=== PATIENT | male | born 1970 | race Caucasian/White ===

== ENCOUNTER 2024-08-04 23:37 | Inpatient (IN) | payer SELFPAY ==
--- NOTE | 2024-08-04 23:46 | ECG_ITS ---
[facility] Test Date: 2024-08-04 Pat Name: Guido Whalen Department: Room: ICU12 Gender: Male Application Support Consultant: : 1970 Requested By: Nimisha Mckinnon Order Number: [id number] Virgen MD: Raul Sánchez M.D. Measurements Intervals [place] Rate: 69 P: 0 [place]: 0 QRS: 13 QRSD: 116 T: 11 QT: 414 QTc: 445 Interpretive Statements SUPRAVENTRICULAR RHYTHM MODERATE INTRAVENTRICULAR CONDUCTION DELAY [110+ ms QRS DURATION] No previous ECG available for comparison Electronically Signed On 08-07-2024 19:12:16 CDT by Raul Sánchez M.D. [email or web address]
--- NOTE | 2024-08-04 23:46 | XRR_ITS ---
PROCEDURE INFORMATION: Exam: XR Chest Exam date and time: 08/05/2024 12:55 AM Age: 54 years old Clinical indication: Injury or trauma; Fall; Blunt trauma (contusions or hematomas); Additional info: Shortness of breath TECHNIQUE: Imaging protocol: Radiologic exam of the chest. Views: 1 view. COMPARISON: No relevant prior studies available. FINDINGS: Limitations: The study is limited due to patient body habitus. Lungs: There is increased opacification of the inferomedial right lung. This could represent overlapping structures, but underlying consolidation and/or atelectasis in the right lower lobe is possible. Pleural spaces: No pleural effusion. No pneumothorax. Heart/Mediastinum: No significant cardiac silhouette enlargement. Bones/joints: Unremarkable. XR/XR chest 1V portable [id number] IMPRESSION: There is increased opacification of the inferomedial right lung. This could represent overlapping structures, but underlying consolidation and/or atelectasis in the right lower lobe is possible.
[2024-08-05] VITALS (20 sets, daily range): BP systolic 122–146; BP diastolic 65–111; PULSE 60–73; RESP 12–19; TEMP 36.3–37.4; O2SAT 86–98; BMI 39.0
--- NOTE | 2024-08-05 00:08 | CTR_ITS ---
PROCEDURE INFORMATION: Exam: CT Head Without Contrast Exam date and time: 08/05/2024 12:50 AM Age: 54 years old Clinical indication: Injury or trauma; Fall; Blunt trauma (contusions or hematomas); Additional info: Fall, head injury TECHNIQUE: Imaging protocol: Computed tomography of the head without contrast. Radiation optimization: All CT scans at this facility use at least one of these dose optimization techniques: automated exposure control; mA and/or kV adjustment per patient size (includes targeted exams where dose is matched to clinical indication); or iterative reconstruction. COMPARISON: No relevant prior studies available. RADIATION DOSE METRICS: Total DLP (mGy-cm): 1254.48 FINDINGS: Brain: No acute intracranial hemorrhage, cerebral edema, or midline shift. Cerebral ventricles: No hydrocephalus. Paranasal sinuses: A mucous retention cyst is present in the left maxillary sinus. There is no acute sinusitis. Mastoid air cells: Visualized mastoid air cells are well aerated. Orbital cavities: The visualized orbits appear unremarkable. Bones: Unremarkable. No acute fracture. Soft tissues: Unremarkable. CT/CT head wo con* [id number] IMPRESSION: No acute intracranial abnormality.
[2024-08-05 00:11] LABS: ABG PCO2 45.2 mmHg (35-45); ABG PH Result 7.32 (7.35-7.45); Alveolar-Arterial Oxygen Gradi 1.9 mmHg (5-10); Arterial Blood Gas Hematocrit 25.2 % (42-52); Base Excess ABG -2.5 mmol/L (-2.0-2.0); Blood Gas Allen Test Pos; Blood Gas Operator Identificat jlb; Blood Gas Sample Site Radial, left; Blood Gas Sample Type Arterial; Carboxyhemoglobin 2.5 %THgb (0.4-20.1); HCO3 ABG 23.5 mmol/L (22-26); HGB O2 Sat 91.4 % (95-100); Ionized Calcium Level - ABG 1.1 mmol/L (1.1-1.4); Methemoglobin 1.4 % (0.4-1.5); Oxygen Device NC; Oxygen Saturation ABG 95.2; PO2 ABG 77.6 mmHg (80.0-100.0); Potassium Level - ABG 6.2 mmol/L (3.5-5.0); Total Hemoglobin 8.2 g/dL (14-18)
--- NOTE | 2024-08-05 00:20 | W.ED.SOB ---
HPI - SOB/Dyspnea General: Chief Complaint: Fall Stated Complaint: Fell hit his head and cut r arm,confused,swelling Time Seen by Provider: 08/04/24 23:50 History of Present Illness: HPI Narrative: 54-year-old man who presents emergency room after having had a fall. He can tell me initially is that he was recently admitted to a hospital in [facility] for pneumonia for a very long time and he was discharged and his son came and got him and brought him down here. They have only been here briefly. They were trying to do his shower routine he became short of breath and fell and hit his head. He is extremely edematous. He has body wall edema scrotal edema and leg edema. Very tight. He is short of breath and has had some wheezing. He says he does not know of any heart failure history and that he does not have COPD. He says he was admitted to the hospital for pneumonia. He has a tracheostomy scar. He does not know what the feeding tube he has is for. Review of Systems Narrative: Constitutional symptoms: Negative except as documented in HPI. Skin symptoms: Negative except as documented in HPI. Eye symptoms: Negative except as documented in HPI. ENMT symptoms: Negative except as documented in HPI. Respiratory symptoms: Negative except as documented in HPI. Cardiovascular symptoms: Negative except as documented in HPI. Gastrointestinal symptoms: Negative except as documented in HPI. Genitourinary symptoms: Negative except as documented in HPI. Musculoskeletal symptoms: Negative except as documented in HPI. Neurologic symptoms: Negative except as documented in HPI. Psychiatric symptoms: Negative except as documented in HPI. Endocrine symptoms: Negative except as documented in HPI. Physical Exam Narrative: EXAM NARRATIVE: General: Alert, no acute distress. Skin: Warm, dry. Head: Normocephalic, atraumatic. Neck: Supple, trachea midline. Eye: Extraocular movements are intact. Ears, nose, mouth and throat: mucosa moist. Cardiovascular: Regular, Normal peripheral perfusion. Patient has anasarca. He has edema of his legs that is very tight. He has scrotal edema. He has abdominal wall edema. Respiratory: Coarse breath sounds with some wheeze. Diminished breath sounds on the right posterior lungs. Gastrointestinal: Soft, Nontender, Non distended Musculoskeletal: Normal ROM, no deformity. Neurological: Alert and oriented, No focal neurological deficit observed. Patient is a very poor director medical affairs. Psychiatric: Cooperative, appropriate mood & affect. Course Vital Signs: Vital signs: Vital Signs Temperature 97.9 F 08/05/24 00:36 Pulse Rate 66 08/05/24 02:49 Respiratory Rate 18 08/05/24 02:49 Blood Pressure 139/92 08/05/24 02:49 Pulse Oximetry 93 08/05/24 02:49 Oxygen Delivery Me thod Nasal Cannula 08/05/24 02:49 Oxygen Flow Rate 5 08/05/24 02:49 MDM - SOB/Dyspnea Medical Decision Making Medical decision making: Differential diagnosis including but not limited to and based on the above HPI, review of systems and physical exam: patient with fall and head injury. Subdural hematoma, subarachnoid hemorrhage, concussion, skull fracture. Differential diagnosis for patient with shortness of breath includes but is not limited to and based on the above HPI, review of systems and physical exam: Pneumonia. Bronchitis. Asthma or COPD with acute exacerbation. Acute coronary syndrome / NE. Pulmonary embolism. Anxiety. Congestive heart failure. Viral infections including influenza and Covid-19. Atrial fibrillation. Anxiety. Pleural effusion. Pneumothorax. Orders placed to evaluate differential diagnosis based on the above differential, HPI and physical exam CT head: No acute intracranial process. no intracranial hemorrhage, no evidence of infarct. no evidence of acute fracture.This was reviewed and interpreted by myself the ER physician. Chest x-ray: Increased opacification of the inferomedial right lung. Could be consolidation or atelectasis. According to radiology. Looks like an effusion to me. Cardiomegaly. This was reviewed and interpreted by myself the emergency room physician. I also reviewed the radiology report. Lab Review: Laboratory results were reviewed and interpreted by myself the emergency room physician. No leukocytosis. Anemia with a hemoglobin of 7.9. Hyponatremia. Sodium is 129. Potassium is a bit elevated at 6.4. BUN and creatinine are elevated at 66 and 4.1. Flu COVID and RSV are negative. Troponin is 215 initially and 215 upon repeat. No delta. This is likely his baseline with his renal insufficiency. CT of the chest abdomen pelvis without contrast: Large pleural effusion. Compressive atelectasis. Body wall edema. No obstructive uropathy. Cirrhosis. This was reviewed and interpreted by myself the emergency room physician. I also reviewed the radiology report. I reviewed the patient's medical record. Reexamination: Patient is breathing more comfortably on oxygen. He still has extensive edema. I did get considerably better information from the patient's son. He had been admitted to the hospital for about a month. Initially with flu. Then with bilateral pneumonia. Then with MRSA bacteremia it sounds like. He had been intubated and then placed on a trach. He also had a feeding tube while he was on the trach. He still has the feeding tube. Looking at his meds he is on 20 mg of Lasix. May have a history of heart failure. We are attempting to retrieve records from [facility]. Consultation: I spoke with Dr. Simpson who agrees to admission. Assessment and plan: Fall Head injury Hypoxemia Dyspnea Renal insufficiency Anasarca/edema Congestive heart failure Pleural effusion ?80 mg IV Lasix in the emergency room. -I discussed the patient with the hospitalist on-call who is admitting the patient. - Discussed findings and plan with patient. Answered any questions. - All laboratory values were reviewed and interpreted personally by myself, the ER physician - All imaging was reviewed and interpreted personally by myself, the ER physician. - Evaluation and treatment of this problem were appropriate in the emergency setting Lab Data 08/05/24 00:09 08/05/24 00:09 Labs/Radiology: Radiology Impressions Chest X-Ray 08/04/24 23:46 IMPRESSION: There is increased opacification of the inferomedial right lung. This could represent overlapping structures, but underlying consolidation and/or atelectasis in the right lower lobe is possible. Head CT 08/05/24 00:08 IMPRESSION: No acute intracranial abnormality. Chest/Abdomen/Pelvis CT 08/05/24 02:05 IMPRESSION: 1. Moderate right and small left pleural effusions 2. Dependent and compressive atelectasis in the lower lobes, more pronounced on the right 3. Generalized anasarca 4. Chronic findings as discussed above. IMPRESSION: 1. Generalized anasarca 2. Cirrhosis and a small amount of ascites Laboratory Results WBC 8.27 10^3/uL (3.29-11.43) 08/05/24 00:09 RBC 2.75 10^6/uL (3.85-5.65) L 08/05/24 00:09 Hgb 7.90 g/dL (11.27-16.99) L 08/05/24 00:09 Hct 26.4 % (37-53) L 08/05/24 00:09 MCV 96.0 fl (82-101) 08/05/24 00:09 MCH 28.7 pg (27-33) 08/05/24 00:09 MCHC 29.9 g/dL (30-55) L 08/05/24 00:09 RDW 18.6 % (12.1-15.1) H 08/05/24 00:09 Plt Count 178 10^3/cmm (157-399) 08/05/24 00:09 MPV 11.5 fL (7.4-10.4) H 08/05/24 00:09 Neut % (Auto) 67.4 % 08/05/24 00:09 Lymph % (Auto) 20.7 % 08/05/24 00:09 Harrison % (Auto) 10.2 % 08/05/24 00:09 Eos % (Auto) 1.1 % 08/05/24 00:09 Baso % (Auto) 0.2 % 08/05/24 00:09 Neut # (Auto) 5.58 10^3/uL (1.8-7.7) 08/05/24 00:09 Lymph # (Auto) 1.7 10^3/uL (0.8-4.8) 08/05/24 00:09 Harrison # (Auto) 0.8 10^3/uL (0.2-0.9) 08/05/24 00:09 Eos # (Auto) 0.1 10^3/uL (0.0-0.8) 08/05/24 00:09 Baso # (Auto) 0.0 10^3/uL (0.0-0.1) 08/05/24 00:09 Nucleated RBC % (auto) 0.2 % 08/05/24 00:09 Nucleated RBCs # 0.0 /100WBC 08/05/24 00:09 Sodium 129 mmol/L (136-145) L 08/05/24 00:09 Potassium 6.4 mmol/L (3.5-5.1) H 08/05/24 00:09 Chloride 95 mmol/L (98-107) L 08/05/24 00:09 Carbon Dioxide 22 mmol/L (22-29) 08/05/24 00:09 Anion Gap 18.4 (5-19) 08/05/24 00:09 BUN 66 mg/dL (6-20) H 08/05/24 00:09 Creatinine 4.1 mg/dL (0.7-1.2) H 08/05/24 00:09 GFR Calculation 15.2 mL/min (90-130) L 08/05/24 00:09 Glucose 216 mg/dL (65-115) H 08/05/24 00:09 Calculated Osmolality 294 mOsm/kg (285-295) 08/05/24 00:09 Lactic Acid 1.2 mmol/L (0.5-2.2) 08/05/24 00:09 Calcium 8.1 mg/dL (8.5-10.5) L 08/05/24 00:09 Total Bilirubin 0.6 mg/dL (0.15-1.2) 08/05/24 00:09 AST 27 U/L (0-40) 08/05/24 00:09 ALT 18 U/L (0-41) 08/05/24 00:09 Alkaline Phosphatase 288 U/L (40-130) H 08/05/24 00:09 Troponin T Baseline 215 ng/L (0-15) H* 08/05/24 00:09 Troponin T 120 Minute 215.8 ng/L (0-15) H 08/05/24 02:15 Delta Troponin T 0.8 ABS# (0-10) 08/05/24 02:15 C-Reactive Protein 51.7 mg/L (0.0-4.9) H 08/05/24 00:09 NT-Pro-B Natriuret Pep 4688 pg/mL (0-125) H 08/05/24 00:09 Total Protein 7.5 g/dL (6.6-8.7) 08/05/24 00:09 Albumin 3.0 g/dL (3.5-5.2) L 08/05/24 00:09 Globulin 4.5 g/dL (1.3-4.6) 08/05/24 00:09 Ethyl Alcohol < 10 mg/dL (0-10) 08/05/24 00:09 Influenza A (PCR) Negative (Negative) 08/05/24 00:09 Influenza Type B (PCR) Negative (Negative) 08/05/24 00:09 RSV (PCR) Negative (Negative) 08/05/24 00:09 SARS-CoV-2 (PCR) Negative (Negative) 08/05/24 00:09 XR interpretation done by ED provider, pending radiology final review Discharge Plan Discharge Patient Disposition: Admitted As Inpatient Clinical Impression: Hypoxemia, Fall, Head injury, Renal insufficiency, Congestive heart failure, Anasarca, Dyspnea Condition: Stable Coding Level of Care Code ED Crosstie Inspector for Josesito Puente
[2024-08-05 00:22] LABS: Red Blood Count 2.75 10^6/uL (3.85-5.65); White Blood Count 8.27 10^3/uL (3.29-11.43)
[2024-08-05 00:23] LABS: Basophils % 0.2 %; Eosinophils # 0.1 10^3/uL (0.0-0.8); Eosinophils % 1.1 %; Hematocrit 26.4 % (37-53); Lymphocytes # 1.7 10^3/uL (0.8-4.8); Lymphocytes % 20.7 %; Mean Corpuscular HGB Conc 29.9 g/dL (30-55); Mean Corpuscular Hemoglobin 28.7 pg (27-33); Mean Platelet Volume 11.5 fL (7.4-10.4); Monocytes # 0.8 10^3/uL (0.2-0.9); Monocytes % 10.2 %; Neutrophils # 5.58 10^3/uL (1.8-7.7); Neutrophils % 67.4 %; Nucleated Red Blood Cells % 0.2 %; Platelet Count 178 10^3/cmm (157-399); Red Cell Distribution Width 18.6 % (12.1-15.1)
[2024-08-05 00:35] LABS: Lactic Sepsis W/Reflex 1.2 mmol/L (0.5-2.2)
[2024-08-05 00:41] LABS: Alanine Aminotransferase 18 U/L (0-41); Alcohol Level < 10 mg/dL (0-10); Alkaline Phosphatase 288 U/L (40-130); Anion Gap 18.4 (5-19); Aspartate Amino Transferase 27 U/L (0-40); Blood Urea Nitrogen 66 mg/dL (6-20); C Reactive Protein 51.7 mg/L (0.0-4.9); Calcium 8.1 mg/dL (8.5-10.5); Carbon Dioxide 22 mmol/L (22-29); Chloride 95 mmol/L (98-107); Globulin 4.5 g/dL (1.3-4.6); Glomerular Filtration Rate 15.2 mL/min (90-130); Glucose 216 mg/dL (65-115); Osmolality Calculated 294 mOsm/kg (285-295); Potassium 6.4 mmol/L (3.5-5.1); Sodium 129 mmol/L (136-145); Total Bilirubin 0.6 mg/dL (0.15-1.2); Total Protein 7.5 g/dL (6.6-8.7)
[2024-08-05 00:43] LABS: Troponin(5th) Baseline 215 ng/L (0-15)
[2024-08-05 00:47] LABS: NT Pro B Type Natriuretic Pept 4688 pg/mL (0-125)
[2024-08-05 01:04] LABS: Influenza A NEGATIVE (Negative); Influenza B NEGATIVE (Negative); Respiratory Syncytial Virus Ce NEGATIVE (Negative); SARS-CoV-2 PCR NEGATIVE (Negative)
--- NOTE | 2024-08-05 02:05 | CTR_ITS ---
PROCEDURE INFORMATION: Exam: CT Chest Without Contrast; Diagnostic Exam date and time: 08/05/2024 2:25 AM Age: 54 years old Clinical indication: Abdominal pain; Other: Heart and renal failure; Additional info: Heart failure, renal failure TECHNIQUE: Imaging protocol: Diagnostic computed tomography of the chest without contrast. Radiation optimization: All CT scans at this facility use at least one of these dose optimization techniques: automated exposure control; mA and/or kV adjustment per patient size (includes targeted exams where dose is matched to clinical indication); or iterative reconstruction. COMPARISON: CR (CHEST, ) 08/05/2024 12:55 AM RADIATION DOSE METRICS: Total DLP (mGy-cm): 0.01 FINDINGS: Limitations: Evaluation is limited without IV contrast. Lungs: Dependent and compressive atelectasis is present in the bilateral lower lobes, more pronounced on the right. Pleural spaces: Moderate right and small left pleural effusions are present. Heart: The cardiac silhouette is not enlarged. Coronary artery calcifications are present. There is no significant pericardial effusion. Lymph nodes: Calcified mediastinal lymph nodes are present, likely due to old granulomatous disease. Vasculature: Unremarkable. No aortic aneurysm. Bones/joints: Unremarkable. No acute fracture. Soft tissues: Chest wall edema or generalized anasarca is noted. PROCEDURE INFORMATION: Exam: CT Abdomen And Pelvis Without Contrast Exam date and time: 08/05/2024 2:25 AM Age: 54 years old Clinical indication: Abdominal pain; Other: Heart and renal failure; Additional info: Heart failure, renal failure TECHNIQUE: Imaging protocol: Computed tomography of the abdomen and pelvis without contrast. Radiation optimization: All CT scans at this facility use at least one of these dose optimization techniques: automated exposure control; mA and/or kV adjustment per patient size (includes targeted exams where dose is matched to clinical indication); or iterative reconstruction. COMPARISON: CR (CHEST, ) 08/05/2024 12:55 AM RADIATION DOSE METRICS: Total DLP (mGy-cm): 1505.22 FINDINGS: Tubes, catheters and devices: A percutaneous gastrostomy tube is present. Liver: The liver is cirrhotic. Gallbladder and biliary ducts: The patient is status post cholecystectomy. Pancreas: Normal. No ductal dilation. Spleen: The spleen is mildly enlarged. Adrenal glands: Normal. No mass. Kidneys and ureters: Normal. No hydronephrosis. Stomach and bowel: The stomach is moderately distended with fluid and ingested material. There is no evidence of a bowel obstruction. Appendix: No evidence of appendicitis. Intraperitoneal space: A small amount of free fluid is noted within the pelvis. Vasculature: Unremarkable. No abdominal aortic aneurysm. Lymph nodes: Unremarkable. No enlarged lymph nodes. Urinary bladder: Unremarkable as visualized. Reproductive: A large amount of scrotal edema is present. Bones/joints: Unremarkable. No acute fracture. Soft tissues: Generalized anasarca is present. CT/[place] [id number] IMPRESSION: 1. Moderate right and small left pleural effusions 2. Dependent and compressive atelectasis in the lower lobes, more pronounced on the right 3. Generalized anasarca 4. Chronic findings as discussed above. IMPRESSION: 1. Generalized anasarca 2. Cirrhosis and a small amount of ascites
[2024-08-05 02:37] LABS: Troponin 5 2HR Delta 0.8 ABS# (0-10)
[2024-08-05 02:38] LABS: Troponin 5 2HR 215.8 ng/L (0-15)
[2024-08-05] MEDS: FUROsemide 10 mg/mL SDV 10mL 80 MG IVP (03:04)
--- NOTE | 2024-08-05 03:20 | P.HP_ITS ---
Providers/Chief Complaint 2 Chief Complaint: Fell hit his head and cut r arm,confused,swelling History of Present Illness Guido Whalen is a 54 year old male who recently got discharged on 08/01 from [facility] hospital after prolonged hospitalization summary listed below presented after sustaining a fall at home. His son brought him to [place] to live with his family and establish care with PCP, orthopedics, neuro and general surgery. Patient is stating that he has no energy at all, he has not noticed any chest pain in last 2 to 3 days, no nausea, vomiting, he has not noticed any fever but endorsing generalized weakness fatigue lethargy worsening of swelling. Leg swelling has gotten worse, he does have swelling around his genitalia, today he presented to the hospital after sustaining a fall in the bathroom while taking a shower. He patient is stating that he just blacked out and fell. He did not experience any chest pain or seizure related activity. When he was discharged from the rehab he was not requiring oxygen, he has been trying to eat regular diet, son is trying to flush his PEG tube on daily basis, he does use a walker sometimes wheelchair for ambulation at home. Workup in the ER revealed anasarca, acute on chronic anemia, hemoglobin 7.9 , hyperkalemia, hyponatremia acute kidney disease, requiring 3 L nasal cannula, I did go over all of his notes from the outside facility He does have elevated troponin, he is not endorsing chest pain, EKG not showing any infarctive changes I requested D-dimer, ammonia level, CPK, drug screen, hepatitis panel, Chest CT abdomen pelvis scan consistent with liver cirrhosis, pleural effusion, atelectasis I discussed goals of care with the patient in front of his son: Patient is stating that in case he goes into cardiac or respiratory arrest he does not want chest compressions defibrillation or intubation this time Please review summary below Summary of outside records: Past medical history positive for prolonged hospitalization secondary to angioedema requiring intubation, followed by tracheostomy after prolonged intubation, PEG tube placement after prolonged n.p.o. 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 07/17 MRI lumbar spine chronic degenerative changes, he was given prolonged antibiotics for possible osteomyelitis 08/01: Follow-up MRI no evidence of osteomyelitis Antimicrobial therapy IV vancomycin: Did not tolerate He was given linezolid, ceftaroline meropenem, micafungin, daptomycin Prolonged IV meropenem 07/23 till 08/01 Itraconazole prolonged therapy 07/22-08/01 PICC line removed And sent to [facility]rom[facility] provided Patient was discharged on room air EGD: 07/28: Gastritis: Colonoscopy 07/30: Nonbleeding internal hemorrhoids: 3 to 5 mm small polyps removed large 20 mm polyp removed as well: Patient was asked to follow-up for colonoscopy within 3 years Diarrhea: C. difficile panel negative: Patient was given Imodium on as-needed basis Review of Systems 2 Const: Reports: chills and change in weight; Denies: fever(s) Eyes: Denies: change in vision ENMT: Denies: throat pain Card: Reports: swelling of feet/ankles; Denies: chest pain Resp: Reports: dyspnea, non-productive cough and wheezing : Reports: difficulty urinating Musc: Reports: back pain Skin/Breast: Reports: skin swelling Psych: Reports: depression PFSH Acute 2 PFSH: Medical History Anemia Surgical History Tracheostomy status Past medical history positive for prolonged hospitalization secondary to angioedema requiring intubation, followed by tracheostomy after prolonged intubation, PEG tube placement after prolonged n.p.o. 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 07/17 MRI lumbar spine chronic degenerative changes, he was given prolonged antibiotics for possible osteomyelitis 08/01: Follow-up MRI no evidence of osteomyelitis Antimicrobial therapy IV vancomycin: Did not tolerate He was given linezolid, ceftaroline meropenem, micafungin, daptomycin Prolonged IV meropenem 07/23 till 08/01 Itraconazole prolonged therapy 07/22-08/01 PICC line removed And [facility] Patient was discharged on room air EGD: 07/28: Gastritis: Colonoscopy 07/30: Nonbleeding internal hemorrhoids: 3 to 5 mm small polyps removed large 20 mm polyp removed as well: Patient was asked to follow-up for colonoscopy within 3 years Diarrhea: C. difficile panel negative: Patient was given Imodium on as-needed basis Social History Smoking and tobacco/nicotine status: former use of tobacco/nicotine Alcohol intake: former Household members: family Housing: House Vitals/I&O/Wt Last Vital Signs Temp 97.9 F 08/05/24 00:36 Pulse 66 08/05/24 02:49 Resp 18 08/05/24 02:49 BP 139/92 08/05/24 02:49 Pulse Ox 93 08/05/24 02:49 O2 Del Method Nasal Cannula 08/05/24 02:49 O2 Flow Rate 5 08/05/24 02:49 08/04/24 08/04/24 08/05/24 14:59 22:59 06:59 Intake Total 0 / 0 Balance 0 / 0 Physical Exam 2 Narrative: Patient has anasarca Currently requiring 3 L Scrotal swelling 3+ edema of lower extremity Edema Bilateral bedside with rhonchi and crackles S1, S2 Hemodynamically stable Awake and alert AOx4 GCS 15 Chronic left-sided weakness Son at the bedside Umbilical hernia PEG tube in place Tracheostomy scar without any active signs of infection Data 08/05/24 00:09 08/05/24 00:09 Micro: Microbiology 08/05/24 00:09 Blood Culture - Preliminary Blood SPECIMEN COLLECTED 08/05/24 00:18 Blood Culture - Preliminary Blood SPECIMEN COLLECTED A&P Assessment and plan (1) Congestive heart failure: (2) Renal insufficiency: (3) Fall: (4) Head injury: (5) Hypoxemia: (6) Dyspnea: (7) Anasarca: (8) Hyperkalemia: (9) Liver cirrhosis: (10) Anemia: Plan Prolonged hospitalization at outside facility where patient was intubated for angioedema, MRSA pneumonia, superimposed bacterial infection with underlying influenza he was treated for 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 with prolonged antimicrobial therapy including antibiotic and antifungal, suffered from dysphagia related to intubation requiring tracheostomy, PEG tube was placed, was recently discharged from the rehab 08/01, needing to establish care with PCP, general surgery, orthopedics presented to the hospital after sustaining a fall at home Generalized weakness and fatigue Fell at home, requested CPK No active focal deficit Afebrile here no signs of meningitis Request PT/OT/ST I do believe this is multifactorial: Related to worsening of hypervolemic state, underlying anemia, and hypoxia Requested D-dimer EKG unremarkable Requested ammonia level ABG consistent with hypoxia without hypercapnia No previous history of seizures Anasarca Start patient on high-dose diuretics Seems to have liver cirrhosis Patient endorsing drinking alcohol in the past, requested ammonia level, Patient has diastolic CHF As per records patient has grade 1 diastolic dysfunction, PHILIP negative for vegetation Requested Jama catheter and IV diuresis Acute to on chronic anemia: EGD 07/28: Showed gastritis, there was no comment on any signs of portal hypertension or esophageal varices 07/30 colonoscopy: Internal hemorrhoids, multiple polyps were removed C. difficile ruled out Continue Protonix Acute on chronic kidney disease Secondary to hypervolemia and anasarca Baseline creatinine around 1.9 Dysphagia: Secondary to respiratory failure 06/30 PEG tube Patient was cleared by speech therapy for for soft bite-size solids with mildly thick liquids with precautions he was asked to upgrade to regular diet with mildly thick liquids with precaution 07/13 Patient will need another evaluation for PEG tube removal after 8 weeks Flushing of PEG tube with 30 mL water on normal saline daily to keep it patent Stroke in the past with left-sided weakness Superficial venous thrombosis of right cephalic Short course of anticoagulation was completed 07/30 Right shoulder rotator cuff tear: Needs outpatient Ortho evaluation Aspiration done 07/06 no evidence of infection Depressed mood/anxiety: Continue Lexapro Skin:MASD coccyx area Type II uncontrolled diabetes A1c 11.7 06/12/2024 Patient was prescribed Lantus 10 units along sliding scale and Farxiga Hypertension: Patient was receiving Coreg doxazosin amlodipine along Lasix Current blood pressure 132/88 mmHg Elevated troponin: Patient not endorsing chest pain, EKG without ischemic or infarctive changes Hemoglobin around 7.9, I will hold off on adding any anticoagulating agent Requested echo Request D-dimer Will request venous Doppler for lower extremity swelling Goals of care discussed with the patient in front of his son: Patient is stating that this time if he goes into cardiac arrest arrest he does not want chest compressions defibrillation or intubation, in case of these events he does not want any aggressive intervention and want to pursue comfort care, this was discussed in detail with the patient while son was at the bedside PDMP PDMP Reviewed: Not Reviewed Attestations 2 Medical Necessity Statement*: More than 2 midnights anticipated, multiorgan failure, high risk for mortality morbidity Diagnoses Congestive heart failure I50.9 Renal insufficiency N28.9 Fall W19.XXXA Head injury S09.90XA Hypoxemia R09.02 Dyspnea R06.00 Anasarca R60.1 Hyperkalemia E87.5 Liver cirrhosis K74.60 Anemia D64.9
--- NOTE | 2024-08-05 03:34 | USCV_ITS ---
Guido Whalen Age: 54 Gender: M : 1970 Exam Date: 08/05/2024 03:46 Ordering Phys: Hernan Simpson MD Technologist: BENJI Exam Location: [facility] [place] Indication: anasarca, evaluate for chf BP: 139 / 92 HR: 65 Rhythm: Sinus Technical Quality: Adequate MEASUREMENTS (Male / Female) Normal Values 2D ECHO LV Diastolic Diameter PLAX 4.7 cm 4.2 - 5.9 / 3.9 - 5.3 cm IVS Diastolic Thickness 1.5 cm 0.6 - 1.0 / 0.6 - 0.9 cm IVS Systolic Thickness 1.8 cm LVPW Diastolic Thickness 1.5 cm 0.6 - 1.0 / 0.6 - 0.9 cm LVPW Systolic Thickness 2.2 cm LVOT Diameter 2.0 cm LV Ejection Fraction 2D Teich 59.1 % LV Ejection Fraction MOD 4C 52.3 % LV Ejection Fraction MOD 2C 67.8 % LV Ejection Fraction 2C AL 68.1 % LA Diameter 4.0 cm Aorta at Sinotubular Diameter 3.2 cm IVC Diameter 2.0 cm M-MODE LA Ao Ratio MM 1.2 AV Cusp Separation MM 2.3 cm DOPPLER AV Peak Velocity 153.0 cm/s LVOT Peak Velocity 113.0 cm/s AV Area Cont Eq vti 2.5 cm squared AV Area Cont Eq pk 2.3 cm squared MV Peak Velocity 159.0 cm/s MV Area PHT 3.6 cm squared Mitral E to A Ratio 1.8 TV Peak Velocity 295.0 cm/s TR Peak Velocity 313.0 cm/s TR Peak Gradient 39.2 mmHg TV Peak E Velocity 64.0 cm/s PV Peak Velocity 114.0 cm/s FINDINGS Left Ventricle Left ventricle is normal size. LV systolic function is normal with EF of 55-60%. No regional wall motion abnormalities are seen. Right Ventricle Normal in size and function Right Atrium Normal in size Left Atrium Dilated Mitral Valve Mild to moderate mitral annular calcification. Mild mitral regurgitaiton. Aortic Valve Aortic valve is thickened. No significant stenosis or regurgitation. Tricuspid Valve Mild tricuspid regurgitation. Pulmonary artery systolic pressure is 35-40 mmHg. This is consistent with mild pulmonary hypertension Pulmonic Valve Not well visualized Pericardium Normal Aorta Normal in size IVC Appears to be dilated CONCLUSIONS LV systolic function is normal with EF of 55-60% Left atrial dilation Mild mitral regurgitation Mild tricuspid regurgitation. Mild pulmonary hypertension IVC appears to be dilated No comparison studies are available. Raul Sánchez MD (Electronically Signed) Final Date: 05 August 2024 09:36 S
[2024-08-05] MEDS: calcium gluconate 0.1 gm/mL 10% SDV 10mL 1 GM IVP ×2 (04:00→16:53)
[2024-08-05] MEDS: sodium polystyrene sulfonate 15 gm/60 mL Btl PO ×3 (04:05→21:09)
[2024-08-05 04:21] LABS: Thyroid Stimulating Hormone 1.75 uIU/mL (0.27-4.20); Vitamin B12 1109 pg/mL (232-1245)
[2024-08-05 04:24] LABS: Magnesium 2.5 mg/dL (1.7-2.3); Phosphorus 6.7 mg/dL (2.5-4.5)
[2024-08-05 04:46] LABS: Estmated Average Glucose 111; Hemoglobin A1C 5.5 % (4.0-6.0)
[2024-08-05 04:54] LABS: Tumor Marker Alpha Fetoprotein 2.3 ng/mL (0-8.3)
[2024-08-05 05:06] LABS: Hepatitis A Antibody IgM Non-Reactive (Nonreactive); Hepatitis B Core AB, Total Non-Reactive (Nonreactive); Hepatitis B Surface AB < 3.5 (11.5-1000); Hepatitis B Surface Antigen Non-Reactive (Nonreactive); Hepatitis C Virus Antibody Non-Reactive (Nonreactive)
[2024-08-05 05:09] LABS: D Dimer 2.86 ug/mLFEU (0-0.59)
[2024-08-05 05:09] LABS: Creatine Phosphokinase 406 U/L (39-308)
[2024-08-05 05:09] LABS: Amphetamines Screen Urine Negative (Negative); Barbiturates Screen Urine Negative (Negative); Benzodiazepines Screen Urine Positive (Negative); Cocaine Screen Urine Negative (Negative); Opiate Screen Urine Negative (Negative); PCP Screen Urine Negative (Negative); THC Screen Urine Positive (Negative)
[2024-08-05] MEDS: FUROsemide 10 mg/mL SDV 10mL 40 MG IVP (06:28)
[2024-08-05 06:51] LABS: Ammonia 34 umol/L (16-60)
[2024-08-05 06:53] LABS: Troponin 5 6HR Delta -13.1 ng/L (0-12)
[2024-08-05 06:55] LABS: Potassium 6.6 mmol/L (3.5-5.1); Troponin 5 6HR 201.9 ng/L (0-15)
[2024-08-05 07:37] LABS: Glucose Point of Care 285 mg/dL (70-110)
[2024-08-05] MEDS: ipratropium-albuterol 3 mL Neb INHALATION ×2 (07:44→11:22)
--- NOTE | 2024-08-05 07:45 | PC.NURSE ---
Critical labs: Troponin, Delta, and Potassium reported from lab at 0700. Dr Simpson not in service after 0700. Dayshift hospitalist not assigned at this time, unable to report within half hour.
--- NOTE | 2024-08-05 08:25 | PC.PHAR ---
Addendum entered by Haritha Michaud 08/05/24 08:53: Pts' med list is scanned into pt chart from [facility]. Original Note: Pt states he uses [facility] pharmacy to fill his medications. However, last filled medications at [facility] [address] [facility] in [facility]. [id number].
--- NOTE | 2024-08-05 08:27 | US_ITS ---
WS: [id number] ULTRASOUND RENAL TECHNIQUE: Ultrasound examination of both kidneys. CLINICAL INFORMATION: fab FINDINGS: RIGHT: Right kidney is normal in size and appearance. Echogenicity: Normal. Cortical thickness: 1.4 cm; Normal. Hydronephrosis: None. Perinephric fluid: None. Right kidney measures: 9.7 cm x 6.4 cm x 6.0 cm. LEFT: Left kidney is normal in size and appearance. Echogenicity: Normal. Cortical thickness: 1.2 cm; Normal. Hydronephrosis: None. Perinephric fluid: None. Left kidney measures: 9.6 cm x 5.2 cm x 4.4 cm. Bladder and aorta not visualized due to bowel gas and body habitus US/US renal BI* [id number] IMPRESSION: Technically difficult study due to body habitus. Limited study. 1. No hydronephrosis in either kidney. 2. Bladder and aorta not visualized due to limitations 3. No visualized apparent renal mass but study is limited
[2024-08-05] MEDS: thiamine 100 mg Tablet PO (08:47)
[2024-08-05] MEDS: calcium gluconate 0.9% NaCL 1 GM/50 ML PREMIX IV (08:47)
[2024-08-05] MEDS: pantoprazole 40 mg SDV IVP ×2 (08:47→16:49)
[2024-08-05] MEDS: sennosides-docusate Tablet 1 TAB PO (08:47)
[2024-08-05] MEDS: insulin regular-human 100 units/1 mL 10 UNIT IVP ×2 (08:48→16:52)
--- NOTE | 2024-08-05 08:56 | ECG_ITS ---
[employer] Test Date: 2024-08-05 Pat Name: Guido Whalen Department: Room: ICU12 Gender: Male [place] Ste[place] Tender: : 1970 Requested By: Nimisha Mckinnon Order Number: [id number] Virgen MD: JC COOPER Measurements Intervals [place] Rate: 62 P: 28 MS: 116 QRS: 40 QRSD: 122 T: 34 QT: 438 QTc: 445 Interpretive Statements SINUS RHYTHM WITH SHORT MS INTERVAL MODERATE INTRAVENTRICULAR CONDUCTION DELAY [110+ ms QRS DURATION] Compared to ECG 08/04/2024 23:40:17 Short MS interval now present Supraventricular rhythm no longer present Electronically Signed On 08-10-2024 18:25:47 CDT by JC COOPER [email or web address]
[2024-08-05] MEDS: insulin lispro 100 unit/1 mL SUBCUT ×2 (09:09→12:22)
[2024-08-05 09:25] LABS: Procalcitonin 0.12 ng/mL (0-0.5)
[2024-08-05 09:34] LABS: Erythrocyte Sedimentation Rate 44 mm/hr (0-10)
[2024-08-05 09:37] LABS: C Reactive Protein 57.3 mg/L (0.0-4.9)
[2024-08-05 09:39] LABS: Creatine Phosphokinase 396 U/L (39-308)
[2024-08-05] MEDS: oxyCODONE 5 mg IR Tab/Cap PO ×2 (10:48→21:08)
--- NOTE | 2024-08-05 10:51 | PM.CONSULT ---
Providers/Reason For Consult Consulting Physician/Specialty*: Nephrology Reason for Consult*: Rebecca Requesting Physician: Dr Gillis Attending Physician: Zion Gillis MD History of Present Illness History of Present Illness Guido Whalen is a 54 year old male who recently had a prolonged hospitalization at an outside facility where he required intubated for angioedema. Hospitalization was complicated by MRSA pneumonia, superimposed bacterial infection with underlying influenza. He was also treated for 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 with prolonged antimicrobial therapy including antibiotic and antifungals. He had dysphagia related to intubation requiring tracheostomy and PEG tube placement and was sent to inpatient rehab where he was recently discharged on 08/01. Since that time, he has had increased generalized weakness and worsening edema. he presented to the er after he had a fall in the bathroom while taking a shower. On presentation, he was found to have pulmonary edema on cxr. Further work-up revealed a potassium 6.6, and a creatinine 4.1. Nephrology was consulted for further management of his rebecca Review of Systems General: Reports: 10 or more systems reviewed and unremarkable except in HPI and below Medications/Allergies Home Medications ?Medication ?Instructions ?Recorded ?Confirmed ?Last Taken ?Type albuterol sulfate 90 mcg/actuation 2 puff inhalation Q4H PRN 08/05/24 08/05/24 Unknown History aerosol inhaler Shortness Of Breath amlodipine 10 mg tablet 10 mg PO DAILY 08/05/24 08/05/24 08/04/24 History carvedilol 12.5 mg tablet 12.5 mg PO Q12H 08/05/24 08/05/24 08/04/24 History cholecalciferol (vitamin D3) 1,250 50,000 mcg PO Q7D 08/05/24 08/05/24 Unknown History mcg (50,000 unit) capsule cyclobenzaprine 10 mg tablet 10 mg PO BID PRN Muscle Spasm 08/05/24 08/05/24 08/04/24 History dapagliflozin propanediol 10 mg 10 mg PO QAM 08/05/24 08/05/24 08/04/24 History tablet (Farxiga) diphenhydramine-zinc acetate 2 See Rx Instructions .Route .COMPLEX 08/05/24 08/05/24 Unknown History %-0.1 % topical cream doxazosin 8 mg tablet 8 mg PO DAILY 08/05/24 08/05/24 08/04/24 History escitalopram oxalate 5 mg tablet 5 mg PO DAILY 08/05/24 08/05/24 08/04/24 History ferrous sulfate 324 mg (65 mg 324 mg PO .QOD 08/05/24 08/05/24 Unknown History iron) tablet,delayed release furosemide 20 mg tablet 20 mg PO DAILY 08/05/24 08/05/24 08/04/24 History gabapentin 300 mg capsule 600 mg PO TID 08/05/24 08/05/24 08/04/24 History insulin glargine 100 unit/mL (3 10 unit SUBCUT BEDTIME 08/05/24 08/05/24 08/04/24 History mL) subcutaneous pen (Lantus Solostar U-100 Insulin) insulin lispro 100 unit/mL See Rx Instructions .Route .COMPLEX 08/05/24 08/05/24 08/04/24 History subcutaneous pen itraconazole 10 mg/mL oral solution 200 mg PO BID 08/05/24 08/05/24 08/04/24 History lidocaine 4 % topical patch See Rx Instructions .Route .COMPLEX 08/05/24 08/05/24 08/04/24 History loperamide 2 mg capsule 4 mg PO QID PRN Diarrhea 08/05/24 08/05/24 Unknown History melatonin 3 mg tablet 3 mg PO BEDTIME 08/05/24 08/05/24 08/04/24 History oxycodone 10 mg tablet 10 mg PO Q4H PRN Pain 08/05/24 08/05/24 Unknown History pantoprazole 40 mg tablet,delayed 40 mg PO BID 08/05/24 08/05/24 08/04/24 History release (Protonix) Allergies Allergy/AdvReac Type Severity Reaction Status Date / Time ketorolac Allergy ADR-Vomitin Verified 08/05/24 05:45 g Current Medications Generic Name Dose Route Start Last Admin Trade Name Freq PRN Reason Stop Dose Admin Albuterol/Ipratropium 3 ml 08/05/24 08:00 08/05/24 07:44 Ipratropium-Albuterol 3 Ml Neb INHALATION 3 ml QID.RESPIRATORY LEATHA Administration Furosemide 40 mg 08/05/24 06:00 08/05/24 06:28 Furosemide 10 Mg/Ml Sdv 10ml IVP 40 mg Q12H LEATHA Administration Insulin Human Lispro 0 unit 08/05/24 08:00 08/05/24 09:09 Insulin Lispro 100 Unit/1 Ml SUBCUT 10 unit WM&BEDTIME LEATHA Administration Protocol Oxycodone HCl 5 mg 08/05/24 04:04 08/05/24 10:48 Oxycodone 5 Mg Ir Tab/Cap PO 5 mg Q4H PRN Administration pain Pantoprazole Sodium 40 mg 08/05/24 09:00 08/05/24 08:47 Pantoprazole 40 Mg Sdv IVP 40 mg BID LEATHA Administration Senna/Docusate Sodium 1 tab 08/05/24 09:00 08/05/24 08:47 Sennosides-Docusate Tablet PO 1 tab DAILY LEATHA Administration Thiamine Mononitrate 100 mg 08/05/24 09:00 08/05/24 08:47 Thiamine 100 Mg Tablet PO 100 mg DAILY LEATHA Administration PFSH Acute PFSH: Medical History Anemia Surgical History Tracheostomy status Past medical history positive for prolonged hospitalization secondary to angioedema requiring intubation, followed by tracheostomy after prolonged intubation, PEG tube placement after prolonged n.p.o. 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 07/17 MRI lumbar spine chronic degenerative changes, he was given prolonged antibiotics for possible osteomyelitis 08/01: Follow-up MRI no evidence of osteomyelitis Antimicrobial therapy IV vancomycin: Did not tolerate He was given linezolid, ceftaroline meropenem, micafungin, daptomycin Prolonged IV meropenem 07/23 till 08/01 Itraconazole prolonged therapy 07/22-08/01 PICC line removed And sent to [facility] provided Patient was discharged on room air EGD: 07/28: Gastritis: Colonoscopy 07/30: Nonbleeding internal hemorrhoids: 3 to 5 mm small polyps removed large 20 mm polyp removed as well: Patient was asked to follow-up for colonoscopy within 3 years Diarrhea: C. difficile panel negative: Patient was given Imodium on as-needed basis Social History Smoking and tobacco/nicotine status: former use of tobacco/nicotine Alcohol intake: former Household members: family Housing: House Vitals/I&O/Wt Last Vital Signs Temp 97.9 F 08/05/24 00:36 Pulse 65 08/05/24 07:54 Resp 14 08/05/24 10:48 BP 122/72 08/05/24 05:46 Pulse Ox 95 08/05/24 10:48 O2 Del Method Oxymask 08/05/24 07:44 O2 Flow Rate 3 08/05/24 07:44 08/04/24 08/05/24 08/05/24 22:59 06:59 14:59 Intake Total 0 / 0 50 / 50 Balance 0 / 0 50 / 50 Weight last 48 hrs Weight 116.5 kg Physical Exam Narrative: GEN: nad, alert, conversant HEAD: normocephalic, atraumatic EYES: eomi, anicteric sclera HEENT: MMM NECK: +ve jvd LUNGS:diminished BS with bibasilar crackles bilaterally ABD: soft, nt, distended, +ve pre-sacral edema, +peg tube in place EXT: +2 BLE edema to thighs, +1-2 BUE edema SKIN: no rash NEURO: grossly normal : nielsen catheter in place Urinary Catheter Management: Nielsen: Cath Placed During This Visit: yes Reason for Continuing Indwelling Catheter: Accurate Measurement of Urinary Output in Critically Ill Patients Urinary Catheter Date of Insertion: 08/05/24 Urinary Catheter Time of Insertion: 04:40 Data 08/05/24 00:09 08/05/24 06:26 Micro: Microbiology 08/05/24 00:09 Blood Culture - Preliminary Blood SPECIMEN COLLECTED 08/05/24 00:18 Blood Culture - Preliminary Blood SPECIMEN COLLECTED A&P Assessment and plan (1) Renal insufficiency: REBECCA superimposd on ckd stage 3- He has a previous creatinine of 1.9. He has ckd stage 3 at baseline likely due to hypertensive and diabetic kidney disease. His rebecca is likely due to cardio- renal syndrome. - i will increase his lasix to 60 mg iv tid - start 1200 ml fluir restriction hyperkalemia- i will give a dose of lokelma. acute on chronic HFpEF- i will increase lasix as above acute hypoxic respiratory failure- due to chf. i will increase lasix as above anemia- check iron studies hyponatremia- likely due to chf. i will check urine osm, serum osm and urine sodium PDMP PDMP Reviewed: Not Reviewed Consult Attestations Medical Necessity Statement: rebecca, hyperkalemia Time Spent in Patient Care: 50 minutes Coding Level of Care Code Acute Code for [facility] Diagnoses Renal insufficiency N28.9
--- NOTE | 2024-08-05 11:29 | USCV_ITS ---
Guido Whalen Age: 54 Gender: M : 1970 Exam Date: 08/05/2024 14:27 Ordering Phys: Zion Gillis MD Technologist: [place] [facility] [place]: bilat edema PROCEDURES: The venous duplex Doppler examination of both lower extremities was performed in the standard fashion. The following venous structures were evaluated: common femoral vein, profunda vein, proximal portion of the greater saphenous vein, superficial femoral vein, and the popliteal vein. In addition, the posterior tibial and peroneal trunk were evaluated. FINDINGS: Normal 2-D Doppler and augmentation and compressibility throughout the lower extremity venous structures. Additional imaging through the proximal calf veins also reveals no thrombus. Limited evaluation of the greater saphenous vein is patent with no thrombus. CONCLUSIONS No evidence of right lower extremity DVT. No evidence of left lower extremity DVT. Jamison Silvestre MD (Electronically Signed) Final Date: 05 August 2024 16:25 S
[2024-08-05 12:05] LABS: Glucose Point of Care 215 mg/dL (70-110)
[2024-08-05 12:07] LABS: Ferritin 153 ng/mL (30-400); Iron 38 ug/dL (59-158)
[2024-08-05] MEDS: sodium polystyrene sulfonate 15 gm/60 mL Btl 30 GM PO (12:24)
[2024-08-05 12:54] LABS: Urine Random Sodium 10 mmol/L
[2024-08-05 13:19] LABS: Creatinine Urine, Random 211 mg/dL (39-259)
[2024-08-05 13:51] LABS: Total Protein, Random Urine 236.4 mg/dL (0.0-20.0)
[2024-08-05 14:08] LABS: Basophils % 0.4 %; Eosinophils # 0.1 10^3/uL (0.0-0.8); Eosinophils % 1.5 %; Hematocrit 26.5 % (37-53); Lymphocytes # 1.4 10^3/uL (0.8-4.8); Lymphocytes % 19.6 %; Mean Corpuscular HGB Conc 29.4 g/dL (30-55); Mean Corpuscular Volume 98.5 fl (82-101); Mean Platelet Volume 11.4 fL (7.4-10.4); Monocytes # 0.9 10^3/uL (0.2-0.9); Monocytes % 12.2 %; Neutrophils # 4.82 10^3/uL (1.8-7.7); Nucleated Red Blood Cells % 0.3 %; Platelet Count 176 10^3/cmm (157-399); Red Blood Count 2.69 10^6/uL (3.85-5.65); Red Cell Distribution Width 18.4 % (12.1-15.1)
[2024-08-05 14:25] LABS: Anion Gap 20.3 (5-19); Blood Urea Nitrogen 68 mg/dL (6-20); Calcium 8.3 mg/dL (8.5-10.5); Carbon Dioxide 21 mmol/L (22-29); Chloride 95 mmol/L (98-107); Glucose 177 mg/dL (65-115); Osmolality Calculated 294 mOsm/kg (285-295); Potassium 6.3 mmol/L (3.5-5.1); Sodium 130 mmol/L (136-145)
--- NOTE | 2024-08-05 14:41 | PC.NURSE ---
Report called to [facility] and given to ANDREY Dahl. Renal US in progress. Will transfer after testing completed.
--- NOTE | 2024-08-05 14:42 | PC.NURSE ---
This nurse took report from ANDREY Small in ICU at 1440.
[2024-08-05] MEDS: FUROsemide 10 mg/mL SDV 10mL 60 MG IVP (15:06)
--- NOTE | 2024-08-05 15:35 | PC.NURSE ---
Pt safely transferred from ICU to Med Surg room 257 via wheelchair, accompanied by ANDREY Small. This nurse assumed care of pt at 1535.
--- NOTE | 2024-08-05 15:38 | PC.NURSE ---
Pt transferred to [facility] on [address] [facility] [employer]. Cellphone and clothing with him. No valuables ( I.D.s, pool wallet, etc.) with pt. Update provided to ANDREY Dahl.
--- NOTE | 2024-08-05 15:48 | P.PN_ITS ---
Subjective 2 Subjective: Patient was seen this morning, son is at bedside, he tells me that he was hospitalized at [facility] (formerly [facility]) for over a month, he had an adverse reaction to lisinopril, developed angioedema, required a trach and a PEG, he tells me he also had an adverse reaction to metformin? Nonetheless he was at a long-term care facility, he just recently got discharged and he wanted to be closer to his son so he moved down to [place] he is also disseminated blastomycosis for which she is on itraconazole, he tells me that he is quite swollen he is edema, he is increased edema in his scrotum, does report shortness of breath and is requiring oxygen he did not require oxygen when he was discharged from Vitals/I&O/Wt Last Vital Signs Temp 97.8 F 08/05/24 08:00 Pulse 64 08/05/24 14:00 Resp 13 08/05/24 14:00 BP 139/75 08/05/24 14:00 Pulse Ox 94 08/05/24 14:28 O2 Del Method Nasal Cannula 08/05/24 14:00 O2 Flow Rate 2 08/05/24 15:36 08/05/24 08/05/24 08/05/24 06:59 14:59 22:59 Intake Total 0 / 0 50 / 50 Balance 0 / 0 50 / 50 Weight last 48 hrs Weight 116.5 kg Physical Exam 2 Const: COMMON NORMALS: no acute distress and patient oriented x3 Resp: COMMON NORMALS: normal respiratory effort, No retractions, No use of accessory muscles and clear to auscultation bilaterally AUSCULTATION: clear to auscultation bilaterally Cardio: COMMON NORMALS: regular rate, regular rhythm, S1 normal heart sound present and S2 normal heart sound present RATE: regular rate RHYTHM: r egular rhythm HEART SOUNDS: S1 normal heart sound present and S2 normal heart sound present GI: COMMON NORMALS: Normal to inspection, nondistended, normoactive bowel sounds present and non-tender Extremity: COMMON NORMALS: no pedal edema Neuro: COMMON NORMALS: patient oriented x3 Psych: COMMON NORMALS: mental status grossly normal Urinary Catheter Management: Jama: Cath Placed During This Visit: yes Reason for Continuing Indwelling Catheter: Accurate Measurement of Urinary Output in Critically Ill Patients Urinary Catheter Date of Insertion: 08/05/24 Urinary Catheter Time of Insertion: 04:40 Data 08/05/24 14:01 08/05/24 14:01 Micro: Microbiology 08/05/24 00:09 Blood Culture - Preliminary Blood SPECIMEN COLLECTED 08/05/24 00:18 Blood Culture - Preliminary Blood SPECIMEN COLLECTED A&P Assessment and plan (1) Congestive heart failure: (2) Renal insufficiency: (3) Fall: (4) Head injury: (5) Hypoxemia: (6) Dyspnea: (7) Anasarca: (8) Hyperkalemia: (9) Liver cirrhosis: (10) Anemia: Plan Prolonged hospitalization at outside facility where patient was intubated for angioedema, MRSA pneumonia, superimposed bacterial infection with underlying influenza he was treated for 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 with prolonged antimicrobial therapy including antibiotic and antifungal, suffered from dysphagia related to intubation requiring tracheostomy, PEG tube was placed, was recently discharged from the rehab 08/01, needing to establish care with PCP, general surgery, orthopedics presented to the hospital after sustaining a fall at home Generalized weakness and fatigue Likely secondary to acute renal failure, hypoxia, fluid overload, deconditioning Acute hypoxic respiratory failure Anasarca, fluid overload, increase scrotal edema -2+ edema, -Likely secondary to CKD, diastolic dysfunction Plan -Monitor respiratory status closely -lasix 60mg IV BID Liver cirrhosis? -CT imaging showing cirrhosis of the liver Patient endorsing drinking alcohol in the past, requested ammonia level, Acute to on chronic anemia: EGD 07/28: Showed gastritis, there was no comment on any signs of portal hypertension or esophageal varices 07/30 colonoscopy: Internal hemorrhoids, multiple polyps were removed Hold off on anticoagulant therapy plan Continue Protonix, carafate Acute on chronic kidney disease Secondary to hypervolemia and anasarca Baseline creatinine around 1.9 Plan -Nephrology consulted Hyperkalemia -Patient has received 2 doses of D10, insulin, calcium gluconate -Continue Kayexalate Dysphagia: Secondary to respiratory failure 06/30 PEG tube Patient was cleared by speech therapy for for soft bite-size solids with mildly thick liquids with precautions he was asked to upgrade to regular diet with mildly thick liquids with precaution 07/13 Patient will need another evaluation for PEG tube removal after 8 weeks Flushing of PEG tube with 30 mL water on normal saline daily to keep it patent Plan Continue dysphagia level 4 diet, thin liquids Stroke in the past with left-sided weakness Superficial venous thrombosis of right cephalic Short course of anticoagulation was completed 07/30 Right shoulder rotator cuff tear: Needs outpatient Ortho evaluation Aspiration done 07/06 no evidence of infection Depressed mood/anxiety: Continue Lexapro Type II uncontrolled diabetes A1c 11.7 06/12/2024 Patient was prescribed Lantus 10 units along sliding scale and Farxiga PLan -low dose insulin sliding scale Hypertension: hold bp Elevated troponin: -Type I versus type II NSTEMI Patient not endorsing chest pain, EKG without ischemic or infarctive changes Hemoglobin around 7.9, I will hold off on adding any anticoagulating agent CONCLUSIONS LV systolic function is normal with EF of 55-60% Left atrial dilation Mild mitral regurgitation Mild tricuspid regurgitation. Mild pulmonary hypertension IVC appears to be dilated No comparison studies are available. 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 Goals of care discussed with the patient in front of his son: Patient is stating that this time if he goes into cardiac arrest arrest he does not want chest compressions defibrillation or intubation, in case of these events he does not want any aggressive intervention and want to pursue comfort care, this was discussed in detail with the patient while son was at the bedside SCDs for DVT prophylaxis PDMP PDMP Reviewed: Not Reviewed Attestations 2 Medical Necessity Statement*: Patient requires hospitalization for anasarca, fluid overload, requiring IV diuresis, acute kidney injury, hyperkalemia Diagnoses Congestive heart failure I50.9 Renal insufficiency N28.9 Fall W19.XXXA Head injury S09.90XA Hypoxemia R09.02 Dyspnea R06.00 Anasarca R60.1 Hyperkalemia E87.5 Liver cirrhosis K74.60 Anemia D64.9
[2024-08-05] MEDS: gabapentin 300 mg Capsule PO (16:49)
[2024-08-05] MEDS: aspirin 81 mg EC Tablet PO (16:49)
[2024-08-05 16:55] LABS: Glucose Point of Care 145 mg/dL (70-110)
[2024-08-05] MEDS: sucralfate 1 gm/10 mL Oral Liq UDC PO ×2 (16:56→21:16)
[2024-08-05 17:14] LABS: Bilirubin Urine Negative (Negative); Blood Urine 3+ (Negative); Glucose Urine UA Trace (Normal); Ketones Urine Trace (Negative); Leukocyte Esterase Urine 2+ (Negative); Nitrate Urine Negative (Negative); Protein Urine 3+ (Negative); Urine Appearance Turbid (CLEAR); Urine Color Dark Yellow (Yellow)
[2024-08-05 17:18] LABS: Add Urine Microscopic? YES; Bacteria Urine Trace /hpf; Hyaline Casts Urine 89.78 /lpf; RBC Urine >100 /hpf (0-2); Squamous Epithelial Cell Urine 0-5 /hpf (0-5)
[2024-08-05 17:43] LABS: UA Slide Review UA Slide Review Perf; WBC Urine 40-55 /hpf (0-5)
[2024-08-05 17:44] LABS: Add Urine Culture? Yes; Fine Granular Casts Urine 0-4 /lpf
[2024-08-05 17:57] LABS: Anion Gap 17.8 (5-19); Blood Urea Nitrogen 69 mg/dL (6-20); Calcium 8.6 mg/dL (8.5-10.5); Carbon Dioxide 22 mmol/L (22-29); Chloride 96 mmol/L (98-107); Glomerular Filtration Rate 14.4 mL/min (90-130); Glucose 100 mg/dL (65-115); Osmolality Calculated 290 mOsm/kg (285-295); Potassium 5.8 mmol/L (3.5-5.1); Sodium 130 mmol/L (136-145)
[2024-08-05 20:52] LABS: Glucose Point of Care 97 mg/dL (70-110)
[2024-08-05 21:37] LABS: Glucose Point of Care 123 mg/dL (70-110)
[2024-08-05 23:30] LABS: Anion Gap 19.3 (5-19); Blood Urea Nitrogen 71 mg/dL (6-20); Calcium 8.2 mg/dL (8.5-10.5); Carbon Dioxide 22 mmol/L (22-29); Chloride 92 mmol/L (98-107); Glomerular Filtration Rate 12.7 mL/min (90-130); Potassium 6.3 mmol/L (3.5-5.1); Sodium 127 mmol/L (136-145)
[2024-08-06] VITALS (32 sets, daily range): BP systolic 120–152; BP diastolic 52–102; PULSE 64–90; RESP 0–34; TEMP 36.6–38.3; O2SAT 88–96
[2024-08-06 00:03] LABS: Glucose 121 mg/dL (65-115); Osmolality Calculated 286 mOsm/kg (285-295)
[2024-08-06 02:33] LABS: Basophils % 0.2 %; Eosinophils # 0.1 10^3/uL (0.0-0.8); Eosinophils % 0.7 %; Hematocrit 25.8 % (37-53); Lymphocytes # 1.6 10^3/uL (0.8-4.8); Lymphocytes % 19.5 %; Mean Corpuscular HGB Conc 29.5 g/dL (30-55); Mean Corpuscular Hemoglobin 28.9 pg (27-33); Mean Corpuscular Volume 98.1 fl (82-101); Mean Platelet Volume 11.5 fL (7.4-10.4); Monocytes % 11.7 %; Neutrophils # 5.57 10^3/uL (1.8-7.7); Neutrophils % 67.5 %; Nucleated Red Blood Cells % 0.4 %; Platelet Count 179 10^3/cmm (157-399); Red Blood Count 2.63 10^6/uL (3.85-5.65); Red Cell Distribution Width 18.6 % (12.1-15.1); White Blood Count 8.26 10^3/uL (3.29-11.43)
[2024-08-06 02:56] LABS: Alanine Aminotransferase 18 U/L (0-41); Albumin Level 3.3 g/dL (3.5-5.2); Alkaline Phosphatase 320 U/L (40-130); Anion Gap 18.8 (5-19); Aspartate Amino Transferase 29 U/L (0-40); Blood Urea Nitrogen 72 mg/dL (6-20); Calcium 8.1 mg/dL (8.5-10.5); Carbon Dioxide 23 mmol/L (22-29); Chloride 95 mmol/L (98-107); Globulin 3.9 g/dL (1.3-4.6); Glomerular Filtration Rate 12.4 mL/min (90-130); Glucose 122 mg/dL (65-115); Osmolality Calculated 292 mOsm/kg (285-295); Sodium 130 mmol/L (136-145); Total Bilirubin 0.7 mg/dL (0.15-1.2); Total Protein 7.2 g/dL (6.6-8.7)
[2024-08-06 02:58] LABS: C Reactive Protein 72.4 mg/L (0.0-4.9); Magnesium 2.6 mg/dL (1.7-2.3)
[2024-08-06 03:13] LABS: Potassium 6.8 mmol/L (3.5-5.1)
[2024-08-06] MEDS: FUROsemide 10 mg/mL SDV 10mL 60 MG IVP ×2 (03:22→15:34)
[2024-08-06 03:36] LABS: Glucose Point of Care 135 mg/dL (70-110)
--- NOTE | 2024-08-06 03:37 | ECG_ITS ---
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 Measurements Intervals [place] Rate: 74 P: 24 WI: 143 QRS: 7 QRSD: 116 T: -3 QT: 385 QTc: 429 Interpretive Statements SINUS RHYTHM MODERATE INTRAVENTRICULAR CONDUCTION DELAY [110+ ms QRS DURATION] Compared to ECG 08/05/2024 08:56:39 Short WI interval no longer present Electronically Signed On 08-07-2024 19:07:55 CDT by Raul Sánchez M.D. [email or web address]
[2024-08-06] MEDS: sodium bicarbonate 8.4% 1 mEq/mL 50mL Syr 100 MEQ IVP (04:00)
[2024-08-06] MEDS: insulin regular-human 100 units/1 mL 10 UNIT IVP (04:00)
[2024-08-06] MEDS: calcium gluconate 0.1 gm/mL 10% SDV 10mL 1 GM IVP (04:01)
[2024-08-06] MEDS: dextrose 10% 125 ML 750 ML IV (04:04)
[2024-08-06 05:25] LABS: Glucose Point of Care 140 mg/dL (70-110)
[2024-08-06 06:38] LABS: Glucose Point of Care 155 mg/dL (70-110)
[2024-08-06 06:46] LABS: Bacillus cereus group Not Detected (NOT DETECT); Bacillus subtillis group Not Detected (NOT DETECT); Corynebacterium Not Detected (NOT DETECT); Cutibacterium acnes (P.acnes) Not Detected (NOT DETECT); Enterococcus Not Detected (NOT DETECT); Enterococcus faecalis Not Detected (NOT DETECT); Enterococcus faecium Not Detected (NOT DETECT); Lactobacillus species Not Detected (NOT DETECT); Listeria Not Detected (NOT DETECT); Listeria monocytogenes Not Detected (NOT DETECT); Micrococcus Detected (NOT DETECT); Pan Candida Not Detected (NOT DETECT); Pan Gram-Negative Not Detected (NOT DETECT); Staphylococcus epidermidis Not Detected (NOT DETECT); Staphylococcus lugdunensis Not Detected (NOT DETECT); Staphylococcus species Not Detected (NOT DETECT); Streptococcus agalactiae Not Detected (NOT DETECT); Streptococcus anginosus group Not Detected (NOT DETECT); Streptococcus pneumoniae Not Detected (NOT DETECT); Streptococcus pyogenes Not Detected (NOT DETECT); Streptococcus species Not Detected (NOT DETECT)
[2024-08-06 07:24] LABS: Potassium 6.4 mmol/L (3.5-5.1)
--- NOTE | 2024-08-06 08:35 | PM.PN ---
Subjective Subjective: the pt is weak, lethargic, nausea, some confusion, itching, and tremors Medications: Reviewed: Yes Medication Review Details: Current Medications Acetaminophen (Acetaminophen 500 Mg Tablet) 500 mg PO Q4H PRN PRN Reason: fever Albuterol/Ipratropium (Ipratropium-Albuterol 3 Ml Neb) 3 ml INHALATION Q6H PRN PRN Reason: SHORTNESS OF BREATH Albuterol/Ipratropium (Ipratropium-Albuterol 3 Ml Neb) 3 ml INHALATION Q6H.RESP PRN PRN Reason: shortness of breath Aspirin (Aspirin 81 Mg Ec Tablet) 81 mg PO DAILY [facility] Last Admin: 08/05/24 16:49 Dose: 81 mg Doxazosin Mesylate (Doxazosin 4 Mg Tablet) 8 mg PO DAILY [facility] Escitalopram Oxalate (Escitalopram 10 Mg Tablet) 5 mg PO DAILY [facility] Furosemide (Furosemide 10 Mg/Ml Sdv 10ml) 60 mg IVP Q12H [facility]AT[facility] Last Admin: 08/06/24 03:22 Dose: 60 mg Gabapentin (Gabapentin 300 Mg Capsule) 300 mg PO BID [facility] Last Admin: 08/05/24 16:49 Dose: 300 mg Glucagon (Glucagon 1 Mg/Ml Kit 1 Ml) 1 mg IM ONCE PRN; Protocol PRN Reason: Adult Acute Hypoglycemia Nursing Prot. Dextrose (D5w) 500 mls @ 0 mls/hr IV ONCE PRN; Protocol PRN Reason: Adult Acute Hypoglycemia Prot Dextrose (D10w) 125 mls @ 750 mls/hr IV PRN PRN; Protocol PRN Reason: Adult Acute Hypoglycemia Nursing Protocol Last Infusion: 08/06/24 04:30 Dose: Infused Dextrose (D10w) 250 mls @ 1,000 mls/hr IV PRN PRN; Protocol PRN Reason: Adult Acute Hypoglycemia Nursing Protocol Dextrose (D10w) 125 mls @ 750 mls/hr IV PRN PRN PRN Reason: HYPOGLYCEMIA Piperacillin Sod/Tazobactam (Sod 3.375 gm/ Sodium Chloride) 50 mls @ 12.5 mls/hr IV Q8H [facility]; Protocol Insulin Human Lispro (Insulin Lispro 100 Unit/1 Ml) 0 unit SUBCUT WM&BEDTIME LEATHA; Protocol Last Admin: 08/05/24 22:42 Dose: Not Given Non-Formulary Medication (Itraconazole) 200 mg PO BID [facility] Last Admin: 08/05/24 17:35 Dose: Not Given Ondansetron HCl (Ondansetron 2 Mg/Ml Sdv 2 Ml) 4 mg IVP Q6H PRN PRN Reason: NAUSEA AND VOMITING Oxycodone HCl (Oxycodone 5 Mg Ir Tab/Cap) 5 mg PO Q4H PRN PRN Reason: pain Last Admin: 08/05/24 21:08 Dose: 5 mg Pantoprazole Sodium (Pantoprazole 40 Mg Sdv) 40 mg IVP BID [facility] Last Admin: 08/05/24 16:49 Dose: 40 mg Senna/Docusate Sodium (Sennosides-Docusate Tablet) 1 tab PO DAILY [facility] Last Admin: 08/05/24 08:47 Dose: 1 tab Sodium Polystyrene Sulfonate (Sodium Polystyrene Sulfonate 15 Gm/60 Ml Btl) 15 gm PO Q6H [facility] Last Admin: 08/06/24 04:51 Dose: Not Given Sucralfate (Sucralfate 1 Gm/10 Ml Oral Liq Udc) 1 gm PO Q6H [facility] Last Admin: 08/06/24 04:51 Dose: Not Given Thiamine Mononitrate (Thiamine 100 Mg Tablet) 100 mg PO DAILY [facility] Last Admin: 08/05/24 08:47 Dose: 100 mg Vitals/I&O/Wt Last Vital Signs Temp 100.9 F H 08/06/24 07:44 Pulse 81 08/06/24 07:44 Resp 20 H 08/06/24 07:44 BP 152/102 08/06/24 07:44 Pulse Ox 90 08/06/24 07:44 O2 Del Method Nasal Cannula 08/06/24 07:44 O2 Flow Rate 3 08/06/24 04:21 08/05/24 08/06/24 08/06/24 22:59 06:59 14:59 Intake Total 240 / 290 125 / 415 Output Total 500 / 500 90 / 590 Balance -260 / -210 35 / -175 Weight last 48 hrs Weight 120.61 kg Weight 116.5 kg Physical Exam Narrative: obese man in bed, sitting up, uncomfortable, BP elevated, + febrile heent- nc/at, eomi neck supple lungs clear heart + s1, s2 abdomen- soft +bs ext b/l edema neuro+ asterixis Urinary Catheter Management: Jama: Cath Placed During This Visit: yes Reason for Continuing Indwelling Catheter: Accurate Measurement of Urinary Output in Critically Ill Patients Urinary Catheter Date of Insertion: 08/05/24 Urinary Catheter Time of Insertion: 04:40 Data 08/06/24 02:12 08/06/24 07:00 Micro: Microbiology 08/05/24 00:18 Blood Culture - Preliminary Blood Micrococcus and related genera 08/05/24 00:09 Blood Culture - Preliminary Blood NEGATIVE TO DATE A&P Assessment and plan (1) REBECCA (acute kidney injury): 54 year old male who recently got discharged on 08/01 from [facility] after prolonged hospitalization. Patient is here s/p fall w/ edema, REBECCA, anemia, confusion 1. REBECCA- please get old cr values pt has hematuria, leukocytes and protein on u/a UPCR under 1 send c3, c4, jeovanny, anca, anti-gbm, hepatitis serologies please check ldh, retic count, haptoglobin -no hydronephrosis on renal us -given lethargy, weakness, edema, hyperkalmeia- will initiate HD today -check spep, sife, iron studies, b12, folate, ferritin seen and examined w/ the aide of a nurse using A/V equipment =pt consented to telehealth and to Hemodialysis Plan initiate HD. start eval for anemia and REBECCA PDMP PDMP Reviewed: Not Reviewed Attestations Medical Necessity Statement*: rebecca, AMS, hyperkalemia, htn, edema Time Spent in Patient Care: Greater than 35 minutes (>than 50% of time spent in counselling and/or direct pt care on unit). Coding Level of Care Code Acute Code for [facility] Diagnoses REBECCA (acute kidney injury) N17.9
[2024-08-06 09:11] LABS: Reticulocyte % 7.5 % (0.5-2.0)
[2024-08-06 09:26] LABS: Creatine Phosphokinase 232 U/L (39-308); Lactate Dehydrogenase 279 U/L (135-225)
--- NOTE | 2024-08-06 09:28 | XR_ITS ---
WS: [id number] Pelvis, AP portable supine, 08/06/2024 Clinical Data: Verify placement of temp dialysis catheter Comparison: None. Findings: There is a catheter which has been inserted in the region of the right common iliac vein. XR/XR pelvis 1-2V* 11110 Impression: Insertion of catheter ending in the region of the right common iliac vein.
[2024-08-06 09:32] LABS: Hepatitis B Surface AB < 3.5 (11.5-1000); Hepatitis B Surface Antigen Non-Reactive (Nonreactive)
[2024-08-06] MEDS: escitalopram 10 mg Tablet 5 MG PO (09:43)
[2024-08-06] MEDS: doxazosin 4 mg Tablet 8 MG PO (09:43)
[2024-08-06] MEDS: sennosides-docusate Tablet 1 TAB PO (09:43)
[2024-08-06] MEDS: pantoprazole 40 mg SDV IVP ×2 (09:43→18:03)
[2024-08-06] MEDS: gabapentin 300 mg Capsule PO (09:43)
[2024-08-06] MEDS: aspirin 81 mg EC Tablet PO (09:43)
[2024-08-06] MEDS: sucralfate 1 gm/10 mL Oral Liq UDC PO ×3 (09:43→21:29)
[2024-08-06] MEDS: thiamine 100 mg Tablet PO (09:43)
[2024-08-06] MEDS: sodium polystyrene sulfonate 15 gm/60 mL Btl PO (09:44)
--- NOTE | 2024-08-06 09:48 | PM.CCN ---
Critical Care Event Note Was consulted by Dr. Harvey on this patient for placement of a temporary dialysis catheter. Discussed with the patient. He gave verbal consent but would had difficult time signing so nurse and night signed form acknowledging verbal consent. Dual-lumen catheter placed in the right femoral artery terminating in the right common iliac without complication under ultrasound guidance. X-ray confirms. No complications of the procedure Dr. Gillis will continue to care for the patient is anticipating transfer to the ICU. Critical Care Time Code activated: No Critical Care Time (min): 0 Procedures Central Line Placement^ Right Femoral: Time out performed: Yes Patient placed on monitor/pulse ox: No MD prep: mask, gown and gloves Central line prep: Chlorhexidine scrub Local anesthesia used: lidocaine 1% Amount of anesthesia used (ml): 10 Ultrasound used for placement: Yes Central line lumen inserted: double Post procedure: sutured in place, good blood return, all ports aspirated, flushed, capped and sterile dressing applied Post procedure x-ray: tip of catheter in good position Patient tolerated procedure: well Complications: none Additional comments: Temporary dialysis catheter placed in the right femoral artery. X-ray shows good positioning both ports flushed and pulled blood without difficulty. Coding Level of Care Code Acute Code for Chg Fwd
[2024-08-06] MEDS: piperacillin-tazobactam 3.375 GM in sodium chloride 0.9% (plus) 50 ML IV ×2 (09:54→18:04)
[2024-08-06] MEDS: insulin lispro 100 unit/1 mL SUBCUT ×3 (09:55→21:29)
[2024-08-06 10:22] LABS: Complement C3 146 mg/dL (90-180)
[2024-08-06 10:32] LABS: Hepatitis C Virus Antibody Non-Reactive (Nonreactive)
[2024-08-06 10:38] LABS: Glucose Point of Care 188 mg/dL (70-110)
--- NOTE | 2024-08-06 11:35 | PC.NURSE ---
Pt arrives to ICU from [facility]. Pt alert and confused. IV site noted left forearm. HD cath noted in right groin, slight ozzing noted around site. Extreme scrotal and penal edema noted. Pt using 2 lpm/NC. O 2 sats 95%.
[2024-08-06] MEDS: LIDOCAINE 1% (11:58)
--- NOTE | 2024-08-06 11:58 | PC.NURSE ---
Dr. Warren at bedside to place temporary dialysis catheter to right groin. Lukasz Isaac, RN at bedside to assist. I pulled Lidocaine on override for procedure and Dr. Warren used the entire vial for local anesthetic to the procedure area. Nothing to waste at this time.
[2024-08-06 12:17] LABS: Glucose Point of Care 162 mg/dL (70-110)
--- NOTE | 2024-08-06 13:31 | PC.OT ---
OT services withheld this date per nursing request; Patient is receiving dialysis and he will exhausted when done.
--- NOTE | 2024-08-06 13:43 | P.PN_ITS ---
Subjective 2 Subjective: Patient was seen this morning, he continues to complain of shortness of breath, he had episode of vomiting this morning, does complain of edema, scrotal edema, lower extremity edema we discussed his persistent fluid overload with resistant hyperkalemia, discussed options available, we have tried maximal medical therapy without significant treatment of his hyperkalemia and his fluid overload his urine output is only 400 cc, discussed risk and benefits of dialysis, he voiced understanding, all question answered, agreed to proceed -Nephrology agreed for dialysis catheter placement and dialysis ? Consulted ER provider for dialysis catheter placement, plan for dialysis today Vitals/I&O/Wt Last Vital Signs Temp 99.0 F 08/06/24 11:32 Pulse 77 08/06/24 11:32 Resp 18 08/06/24 11:32 BP 138/66 08/06/24 11:32 Pulse Ox 90 08/06/24 11:00 O2 Del Method Nasal Cannula 08/06/24 11:00 O2 Flow Rate 2 08/06/24 11:00 08/05/24 08/06/24 08/06/24 22:59 06:59 14:59 Intake Total 240 / 290 125 / 415 Output Total 500 / 500 90 / 590 Balance -260 / -210 35 / -175 Weight last 48 hrs Weight 120.61 kg Weight 116.5 kg Physical Exam 2 Const: COMMON NORMALS: no acute distress and patient oriented x3 Resp: COMMON NORMALS: normal respiratory effort, No retractions, No use of accessory muscles and clear to auscultation bilaterally AUSCULTATION: clear to auscultation bilaterally Cardio: COMMON NORMALS: regular rate, regular rhythm, S1 normal heart sound present and S2 normal heart sound present RATE: regular rate RHYTHM: r egular rhythm HEART SOUNDS: S1 normal heart sound present and S2 normal heart sound present GI: COMMON NORMALS: Normal to inspection, nondistended, normoactive bowel sounds present and non-tender Extremity: NARRATIVE EXTREMITY EXAM: 2+ pitting edema, anasarca, Neuro: COMMON NORMALS: patient oriented x3 Psych: COMMON NORMALS: mental status grossly normal Urinary Catheter Management: Jama: Cath Placed During This Visit: yes Reason for Continuing Indwelling Catheter: Accurate Measurement of Urinary Output in Critically Ill Patients Urinary Catheter Date of Insertion: 08/05/24 Urinary Catheter Time of Insertion: 04:40 Data 08/06/24 02:12 08/06/24 07:00 Micro: Microbiology 08/05/24 04:52 Urine Culture - Preliminary Urine Catheterized 08/05/24 00:18 Blood Culture - Preliminary Blood Micrococcus and related genera 08/05/24 00:09 Blood Culture - Preliminary Blood NEGATIVE TO DATE A&P Assessment and plan (1) Congestive heart failure: (2) Renal insufficiency: (3) Fall: (4) Head injury: (5) Hypoxemia: (6) Dyspnea: (7) Anasarca: (8) Hyperkalemia: (9) Liver cirrhosis: (10) Anemia: Plan Prolonged hospitalization at outside facility where patient was intubated for angioedema, MRSA pneumonia, superimposed bacterial infection with underlying influenza he was treated for 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 with prolonged antimicrobial therapy including antibiotic and antifungal, suffered from dysphagia related to intubation requiring tracheostomy, PEG tube was placed, was recently discharged from the rehab 08/01, needing to establish care with PCP, general surgery, orthopedics presented to the hospital after sustaining a fall at home Generalized weakness and fatigue Likely secondary to acute renal failure, hypoxia, fluid overload, deconditioning Urinary tract infection - start Zosyn -Follow urine culture Micrococcus species in blood culture -Likely contamination as in 1 out of 4 blood cultures -However will repeat blood cultures Acute hypoxic respiratory failure Anasarca, fluid overload, increase scrotal edema -2+ edema, -Likely secondary to CKD, diastolic dysfunction -With lackluster response to IV diuresis, Plan -Monitor respiratory status closely -lasix 60mg IV BID -Start dialysis today Liver cirrhosis? -CT imaging showing cirrhosis of the liver Patient endorsing drinking alcohol in the past, requested ammonia level, Acute to on chronic anemia: EGD 07/28: Showed gastritis, there was no comment on any signs of portal hypertension or esophageal varices 07/30 colonoscopy: Internal hemorrhoids, multiple polyps were removed Hold off on anticoagulant therapy plan Continue Protonix, carafate Acute on chronic kidney disease, with lackluster urine output worsening creatinine with hypervolemia and anasarca Plan -Nephrology consulted, plan on dialysis today Hyperkalemia -Status post multiple doses of Kayexalate, insulin, D50 -Plan on dialysis today Dysphagia: Secondary to respiratory failure / PEG tube Patient was cleared by speech therapy for for soft bite-size solids with mildly thick liquids with precautions he was asked to upgrade to regular diet with mildly thick liquids with precaution 07/13 Patient will need another evaluation for PEG tube removal after 8 weeks Flushing of PEG tube with 30 mL water on normal saline daily to keep it patent Plan Continue dysphagia level 4 diet, thin liquids Stroke in the past with left-sided weakness Superficial venous thrombosis of right cephalic Short course of anticoagulation was completed 07/30 Right shoulder rotator cuff tear: Needs outpatient Ortho evaluation Aspiration done 07/06 no evidence of infection Depressed mood/anxiety: Continue Lexapro Type II uncontrolled diabetes A1c 11.7 06/12/2024 Patient was prescribed Lantus 10 units along sliding scale and Farxiga PLan -low dose insulin sliding scale Hypertension: hold bp Elevated troponin: -Type I versus type II NSTEMI Patient not endorsing chest pain, EKG without ischemic or infarctive changes Hemoglobin around 7.9, I will hold off on adding any anticoagulating agent CONCLUSIONS LV systolic function is normal with EF of 55-60% Left atrial dilation Mild mitral regurgitation Mild tricuspid regurgitation. Mild pulmonary hypertension IVC appears to be dilated No comparison studies are available. 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 Goals of care discussed with the patient in front of his son: Patient is stating that this time if he goes into cardiac arrest arrest he does not want chest compressions defibrillation or intubation, in case of these events he does not want any aggressive intervention and want to pursue comfort care, this was discussed in detail with the patient while son was at the bedside SCDs for DVT prophylaxis PDMP PDMP Reviewed: Not Reviewed Attestations 2 Medical Necessity Statement*: Patient requires hospitalization for acute hypoxic respiratory failure, fluid overload, hyperkalemia, UTI Diagnoses Congestive heart failure I50.9 Renal insufficiency N28.9 Fall W19.XXXA Head injury S09.90XA Hypoxemia R09.02 Dyspnea R06.00 Anasarca R60.1 Hyperkalemia E87.5 Liver cirrhosis K74.60 Anemia D64.9
--- NOTE | 2024-08-06 13:47 | PC.HD ---
New temporary R femoral HD catheter causing high venous pressure readings on dialysis machine throughout treatment. During last half-hour of treatment, venous pressures were noted to be >300 mmHg at a blood flow rate of 250 mL/minute. Multiple attempts to reposition patient with no improvement in venous pressures. Presumed issue is his scrotal/groin swelling. Reduced blood flow rate to 200 mL/min, which is a suboptimal rate, but the only way to complete treatment at this time. Primary RN and repacker aware of the issue. Anticipating improved flow after tissue swelling subsides.
--- NOTE | 2024-08-06 15:32 | PC.SLP ---
Attempted to follow-up with pt. The pt is not alert enough at this time.
[2024-08-06 17:38] LABS: Glucose Point of Care 107 mg/dL (70-110)
[2024-08-06] MEDS: oxyCODONE 5 mg IR Tab/Cap PO (18:54)
[2024-08-06 22:42] LABS: Glucose Point of Care 171 mg/dL (70-110)
[2024-08-07] VITALS (24 sets, daily range): BP systolic 117–163; BP diastolic 61–113; PULSE 60–74; RESP 11–21; TEMP 35.9–36.7; O2SAT 92–97
[2024-08-07] MEDS: piperacillin-tazobactam 3.375 GM in sodium chloride 0.9% (plus) 50 ML IV ×3 (02:55→17:50)
[2024-08-07] MEDS: FUROsemide 10 mg/mL SDV 10mL 60 MG IVP ×2 (03:05→15:16)
[2024-08-07] MEDS: oxyCODONE 5 mg IR Tab/Cap PO ×4 (03:21→21:45)
[2024-08-07] MEDS: sucralfate 1 gm/10 mL Oral Liq UDC PO ×4 (03:21→21:35)
[2024-08-07 05:12] LABS: Basophils % 0.4 %; Eosinophils # 0.1 10^3/uL (0.0-0.8); Eosinophils % 1.2 %; Lymphocytes # 1.4 10^3/uL (0.8-4.8); Lymphocytes % 28.5 %; Mean Corpuscular HGB Conc 31.7 g/dL (30-55); Mean Corpuscular Hemoglobin 29.8 pg (27-33); Mean Corpuscular Volume 93.9 fl (82-101); Monocytes # 0.6 10^3/uL (0.2-0.9); Monocytes % 12.1 %; Neutrophils # 2.81 10^3/uL (1.8-7.7); Neutrophils % 57.6 %; Nucleated Red Blood Cells % 0 %; Platelet Count 152 10^3/cmm (157-399); Red Blood Count 2.45 10^6/uL (3.85-5.65); Red Cell Distribution Width 17.9 % (12.1-15.1); White Blood Count 4.88 10^3/uL (3.29-11.43)
[2024-08-07 05:41] LABS: Alanine Aminotransferase 16 U/L (0-41); Albumin Level 2.4 g/dL (3.5-5.2); Alkaline Phosphatase 251 U/L (40-130); Blood Urea Nitrogen 60 mg/dL (6-20); C Reactive Protein 116.8 mg/L (0.0-4.9); Calcium 7.7 mg/dL (8.5-10.5); Carbon Dioxide 24 mmol/L (22-29); Chloride 96 mmol/L (98-107); Globulin 3.5 g/dL (1.3-4.6); Glomerular Filtration Rate 14.4 mL/min (90-130); Glucose 149 mg/dL (65-115); Magnesium 2.2 mg/dL (1.7-2.3); Osmolality Calculated 302 mOsm/kg (285-295); Phosphorus 6.7 mg/dL (2.5-4.5); Sodium 136 mmol/L (136-145); Total Bilirubin 0.7 mg/dL (0.15-1.2); Total Protein 5.9 g/dL (6.6-8.7)
[2024-08-07 05:46] LABS: Anion Gap 20.5 (5-19); Aspartate Amino Transferase 33 U/L (0-40); Potassium 4.5 mmol/L (3.5-5.1)
[2024-08-07 06:30] LABS: PROTEIN, TOTAL 6.4 g/dL (6.1-8.1)
[2024-08-07 08:06] LABS: Glucose Point of Care 153 mg/dL (70-110)
[2024-08-07] MEDS: escitalopram 10 mg Tablet 5 MG PO (08:23)
[2024-08-07] MEDS: gabapentin 100 mg Capsule PO (08:23)
[2024-08-07] MEDS: sennosides-docusate Tablet 1 TAB PO (08:23)
[2024-08-07] MEDS: thiamine 100 mg Tablet PO (08:23)
[2024-08-07] MEDS: doxazosin 4 mg Tablet 8 MG PO (08:23)
[2024-08-07] MEDS: aspirin 81 mg EC Tablet PO (08:23)
[2024-08-07] MEDS: insulin lispro 100 unit/1 mL SUBCUT ×4 (08:24→20:17)
[2024-08-07] MEDS: pantoprazole 40 mg SDV IVP ×2 (08:24→18:00)
--- NOTE | 2024-08-07 08:56 | P.PN_ITS ---
Subjective 2 Subjective: feels better, very thirsty. has edema. MS improved. no n/v/f/c/finn/d. + urinating- oliguric Medications: Reviewed: Yes Medication Review Details: Current Medications Acetaminophen (Acetaminophen 500 Mg Tablet) 500 mg PO Q4H PRN PRN Reason: fever Albuterol/Ipratropium (Ipratropium-Albuterol 3 Ml Neb) 3 ml INHALATION Q6H PRN PRN Reason: SHORTNESS OF BREATH Albuterol/Ipratropium (Ipratropium-Albuterol 3 Ml Neb) 3 ml INHALATION Q6H.RESP PRN PRN Reason: shortness of breath Aspirin (Aspirin 81 Mg Ec Tablet) 81 mg PO DAILY [facility] Last Admin: 08/07/24 08:23 Dose: 81 mg Doxazosin Mesylate (Doxazosin 4 Mg Tablet) 8 mg PO DAILY [facility] Last Admin: 08/07/24 08:23 Dose: 8 mg Escitalopram Oxalate (Escitalopram 10 Mg Tablet) 5 mg PO DAILY [facility] Last Admin: 08/07/24 08:23 Dose: 5 mg Furosemide (Furosemide 10 Mg/Ml Sdv 10ml) 60 mg IVP Q12H [facility] Last Admin: 08/07/24 03:05 Dose: 60 mg Gabapentin (Gabapentin 100 Mg Capsule) 100 mg PO DAILY [facility] Last Admin: 08/07/24 08:23 Dose: 100 mg Glucagon (Glucagon 1 Mg/Ml Kit 1 Ml) 1 mg IM ONCE PRN; Protocol PRN Reason: Adult Acute Hypoglycemia Nursing Prot. Dextrose (D5w) 500 mls @ 0 mls/hr IV ONCE PRN; Protocol PRN Reason: Adult Acute Hypoglycemia Prot Dextrose (D10w) 250 mls @ 1,000 mls/hr IV PRN PRN; Protocol PRN Reason: Adult Acute Hypoglycemia Nursing Protocol Dextrose (D10w) 125 mls @ 750 mls/hr IV PRN PRN PRN Reason: HYPOGLYCEMIA Piperacillin Sod/Tazobactam (Sod 3.375 gm/ Sodium Chloride) 50 mls @ 12.5 mls/hr IV Q8H [facility]; Protocol Last Admin: 08/07/24 08:24 Dose: 12.5 mls/hr Albumin Human (Albumin) 12.5 gm in 50 mls @ 60 mls/hr IV PRN PRN PRN Reason: Hypotension and/or symptomatic Insulin Human Lispro (Insulin Lispro 100 Unit/1 Ml) 0 unit SUBCUT WM&BEDTIME [facility]; Protocol Last Admin: 08/07/24 08:24 Dose: 4 unit Itraconazole (Itraconazole 100 Mg Capsule) 200 mg PO Q12H [facility] Last Admin: 08/07/24 08:38 Dose: 200 mg Ondansetron HCl (Ondansetron 2 Mg/Ml Sdv 2 Ml) 4 mg IVP Q6H PRN PRN Reason: NAUSEA AND VOMITING Oxycodone HCl (Oxycodone 5 Mg Ir Tab/Cap) 5 mg PO Q4H PRN PRN Reason: pain Last Admin: 08/07/24 03:21 Dose: 5 mg Pantoprazole Sodium (Pantoprazole 40 Mg Sdv) 40 mg IVP BID [facility] Last Admin: 08/07/24 08:24 Dose: 40 mg Senna/Docusate Sodium (Sennosides-Docusate Tablet) 1 tab PO DAILY [facility] Last Admin: 08/07/24 08:23 Dose: 1 tab Sucralfate (Sucralfate 1 Gm/10 Ml Oral Liq Udc) 1 gm PO Q6H [facility] Last Admin: 08/07/24 03:21 Dose: 1 gm Thiamine Mononitrate (Thiamine 100 Mg Tablet) 100 mg PO DAILY [facility] Last Admin: 08/07/24 08:23 Dose: 100 mg Vitals/I&O/Wt Last Vital Signs Temp 96.6 F L 08/07/24 08:00 Pulse 68 08/07/24 08:00 Resp 21 H 08/07/24 08:00 BP 136/67 08/07/24 08:00 Pulse Ox 94 08/07/24 08:00 O2 Del Method Nasal Cannula 08/07/24 08:00 O2 Flow Rate 2 08/07/24 08:00 08/06/24 08/07/24 08/07/24 22:59 06:59 14:59 Intake Total 50 / 650 170 / 820 Output Total 550 / 3100 Balance 50 / -1900 -380 / -2280 Weight last 48 hrs Weight 115 kg Weight 117 kg Weight 120.61 kg Physical Exam 2 Narrative: obese man in bed, sitting up, comfortable, BP improved, afebrile heent- nc/at, eomi neck supple lungs clear heart + s1, s2 abdomen- soft +bs ext b/l edema2-3+ groin to legs neuro-more awake and interactive Urinary Catheter Management: Jama: Cath Placed During This Visit: yes Reason for Continuing Indwelling Catheter: Accurate Measurement of Urinary Output in Critically Ill Patients Urinary Catheter Date of Insertion: 08/05/24 Urinary Catheter Time of Insertion: 04:40 Data 08/07/24 04:50 08/07/24 04:50 Micro: Microbiology 08/06/24 17:15 Blood Culture - Preliminary Blood SPECIMEN COLLECTED 08/06/24 15:30 Blood Culture - Preliminary Blood SPECIMEN COLLECTED 08/05/24 04:52 Urine Culture - Preliminary Urine Catheterized 08/05/24 00:18 Blood Culture - Preliminary Blood Micrococcus and related genera A&P Assessment and plan (1) REBECCA (acute kidney injury): 54 year old male who recently got discharged on 08/01 from [facility] after prolonged hospitalization. Patient is here s/p fall w/ edema, REBECCA, anemia, confusion 1. REBECCA- please get old cr values pt has hematuria, leukocytes and protein on u/a UPCR under 1 -MS improved w/ one HD session -hyponatremia improved. na is now 136 -hyperkalemia improved -normal c3, c4. negative hepatitis panel -await jeovanny, anca, anti-gbm -normal haptoglobin -no hydronephrosis on renal us -check spep, sife, iron studies, b12, folate, ferritin -repat dialysis today for SUF only seen and examined w/ the aide of a nurse using A/V equipment =pt consented to telehealth and to Hemodialysis Plan SUF for fluid removal PDMP PDMP Reviewed: Not Reviewed Attestations 2 Medical Necessity Statement*: rebecca, edema Time Spent in Patient Care: Greater than 35 minutes (>than 50% of time spent in counselling and/or direct pt care on unit) . Coding Level of Care Code Acute Code for [facility] Fwd Diagnoses REBECCA (acute kidney injury) N17.9
[2024-08-07 09:27] LABS: Reticulocyte % 6.3 % (0.5-2.0)
[2024-08-07 09:35] LABS: Lactate Dehydrogenase 313 U/L (135-225)
[2024-08-07 10:50] LABS: KAPPA LIGHT CHAIN, FREE, SERUM 118.4 mg/L (3.3-19.4); KAPPA/LAMBDA LIGHT CHAINS FREE 0.91 (0.26-1.65); LAMBDA LIGHT CHAIN, FREE, SERU 130.3 mg/L (5.7-26.3)
[2024-08-07 11:44] LABS: Glucose Point of Care 241 mg/dL (70-110)
--- NOTE | 2024-08-07 13:11 | P.PN_ITS ---
Subjective 2 Subjective: Patient was seen this morning, does report edema, shortness of breath, he is on 2 L, denies any fevers, no chills Vitals/I&O/Wt Last Vital Signs Temp 97.7 F 08/07/24 11:44 Pulse 64 08/07/24 12:00 Resp 12 08/07/24 12:00 BP 140/66 08/07/24 12:00 Pulse Ox 95 08/07/24 12:00 O2 Del Method Nasal Cannula 08/07/24 12:00 O2 Flow Rate 2 08/07/24 12:00 08/06/24 08/07/24 08/07/24 22:59 06:59 14:59 Intake Total 1250 / 1850 170 / 2020 850 / 850 Output Total 550 / 3100 Balance 1250 / -700 -380 / -1080 850 / 850 Weight last 48 hrs Weight 115 kg Weight 117 kg Weight 120.61 kg Physical Exam 2 Const: COMMON NORMALS: no acute distress and patient oriented x3 Resp: COMMON NORMALS: normal respiratory effort, No retractions and No use of accessory muscles AUSCULTATION: crackles Cardio: COMMON NORMALS: regular rate, regular rhythm, S1 normal heart sound present and S2 normal heart sound present RATE: regular rate RHYTHM: r egular rhythm HEART SOUNDS: S1 normal heart sound present and S2 normal heart sound present GI: COMMON NORMALS: Normal to inspection, nondistended, normoactive bowel sounds present and non-tender Extremity: NARRATIVE EXTREMITY EXAM: 1+ edema Neuro: COMMON NORMALS: patient oriented x3 Psych: COMMON NORMALS: mental status grossly normal Skin: OTHER: Anasarca, scrotal edema Urinary Catheter Management: Jama: Cath Placed During This Visit: yes Reason for Continuing Indwelling Catheter: Accurate Measurement of Urinary Output in Critically Ill Patients Urinary Catheter Date of Insertion: 08/05/24 Urinary Catheter Time of Insertion: 04:40 Data 08/07/24 04:50 08/07/24 04:50 Micro: Microbiology 08/05/24 16:46 Urine Culture - Final Urine,Clean Catch 08/05/24 04:52 Urine Culture - Final Urine Catheterized 08/06/24 17:15 Blood Culture - Preliminary Blood SPECIMEN COLLECTED 08/06/24 15:30 Blood Culture - Preliminary Blood SPECIMEN COLLECTED 08/05/24 00:18 Blood Culture - Preliminary Blood Micrococcus and related genera A&P Assessment and plan (1) Congestive heart failure: (2) Renal insufficiency: (3) Fall: (4) Head injury: (5) Hypoxemia: (6) Dyspnea: (7) Anasarca: (8) Hyperkalemia: (9) Liver cirrhosis: (10) Anemia: Plan Prolonged hospitalization at outside facility where patient was intubated for angioedema, MRSA pneumonia, superimposed bacterial infection with underlying influenza he was treated for 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 with prolonged antimicrobial therapy including antibiotic and antifungal, suffered from dysphagia related to intubation requiring tracheostomy, PEG tube was placed, was recently discharged from the rehab 08/01, needing to establish care with PCP, general surgery, orthopedics presented to the hospital after sustaining a fall at home Generalized weakness and fatigue Likely secondary to acute renal failure, hypoxia, fluid overload, deconditioning Urinary tract infection -Continue Zosyn -Follow urine culture Micrococcus species in blood culture -Likely contamination as in 1 out of 4 blood cultures -However will repeat blood cultures Acute hypoxic respiratory failure Anasarca, fluid overload, increase scrotal edema -2+ edema, -Likely secondary to CKD, diastolic dysfunction -With lackluster response to IV diuresis, Plan -Monitor respiratory status closely -lasix 60mg IV BID -Status post dialysis catheter placement, status post 1 session of dialysis, will receive another session of dialysis today Liver cirrhosis? -CT imaging showing cirrhosis of the liver Patient endorsing drinking alcohol in the past, requested ammonia level, Acute to on chronic anemia: EGD 07/28: Showed gastritis, there was no comment on any signs of portal hypertension or esophageal varices 07/30 colonoscopy: Internal hemorrhoids, multiple polyps were removed Hold off on anticoagulant therapy plan Continue Protonix, carafate Acute on chronic kidney disease, with lackluster urine output worsening creatinine with hypervolemia and anasarca Plan -Nephrology consulted, plan on dialysis today Hyperkalemia, resolved -Status post multiple doses of Kayexalate, insulin, D50 -Status post dialysis Dysphagia: Secondary to respiratory failure 06/30 PEG tube Patient was cleared by speech therapy for for soft bite-size solids with mildly thick liquids with precautions he was asked to upgrade to regular diet with mildly thick liquids with precaution 07/13 Patient will need another evaluation for PEG tube removal after 8 weeks Flushing of PEG tube with 30 mL water on normal saline daily to keep it patent Plan Continue dysphagia level 4 diet, thin liquids Stroke in the past with left-sided weakness Superficial venous thrombosis of right cephalic Short course of anticoagulation was completed 07/30 Right shoulder rotator cuff tear: Needs outpatient Ortho evaluation Aspiration done 07/06 no evidence of infection Depressed mood/anxiety: Continue Lexapro Type II uncontrolled diabetes A1c 11.7 06/12/2024 Patient was prescribed Lantus 10 units along sliding scale and Farxiga PLan -low dose insulin sliding scale Hypertension: hold bp Elevated troponin: -Type I versus type II NSTEMI Patient not endorsing chest pain, EKG without ischemic or infarctive changes Hemoglobin around 7.9, I will hold off on adding any anticoagulating agent CONCLUSIONS LV systolic function is normal with EF of 55-60% Left atrial dilation Mild mitral regurgitation Mild tricuspid regurgitation. Mild pulmonary hypertension IVC appears to be dilated No comparison studies are available. 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 Goals of care discussed with the patient in front of his son: Patient is stating that this time if he goes into cardiac arrest arrest he does not want chest compressions defibrillation or intubation, in case of these events he does not want any aggressive intervention and want to pursue comfort care, this was discussed in detail with the patient while son was at the bedside SCDs for DVT prophylaxis PDMP PDMP Reviewed: Not Reviewed Attestations 2 Medical Necessity Statement*: Patient requires hospitalization for hypoxia, fluid overload requiring dialysis, diuresis Diagnoses Congestive heart failure I50.9 Renal insufficiency N28.9 Fall W19.XXXA Head injury S09.90XA Hypoxemia R09.02 Dyspnea R06.00 Anasarca R60.1 Hyperkalemia E87.5 Liver cirrhosis K74.60 Anemia D64.9
[2024-08-07 14:29] LABS: Osmolality Serum 311 mOsm/kg (278-305)
[2024-08-07 17:22] LABS: Glucose Point of Care 301 mg/dL (70-110)
--- NOTE | 2024-08-07 19:08 | PC.NURSE ---
Shift summary: Pt rested in bed throughout the shift. He had dialysis yesterday and today. He tolerated both well. VSS. He is utilizing 2 lpm/NC. He Has a great appetite. He requested popcicles and drinks recently. ICe chips and 2 popcicles provided. He has required insulin with lunch and dinner. He has anasacra. HIs scrotum, penis, and perineal area are very swollen He has 3+ pitting edema up his lower extremities past his hips. He has 950ml of urine output and and he was incontinent of BM once this shift. He has requested pain meds twice this shift for his right shoulder.
[2024-08-07 20:12] LABS: Glucose Point of Care 235 mg/dL (70-110)
[2024-08-07 20:45] LABS: ABNORMAL PROTEIN BAND 1 0.2 g/dL (NONE DETECTED); ALBUMIN 2.6 g/dL (3.8-4.8); ALPHA 1 GLOBULIN 0.6 g/dL (0.2-0.3); ALPHA 2 GLOBULIN 0.9 g/dL (0.5-0.9); BETA 1 GLOBULIN 0.4 g/dL (0.4-0.6); BETA 2 GLOBULIN 0.5 g/dL (0.2-0.5); GAMMA GLOBULIN 1.6 g/dL (0.8-1.7)
[2024-08-08] VITALS (18 sets, daily range): BP systolic 135–155; BP diastolic 68–77; PULSE 63–71; RESP 10–25; TEMP 36.8–37.2; O2SAT 90–95
[2024-08-08] MEDS: FUROsemide 10 mg/mL SDV 10mL 60 MG IVP ×2 (02:16→14:04)
[2024-08-08] MEDS: piperacillin-tazobactam 3.375 GM in sodium chloride 0.9% (plus) 50 ML IV ×3 (02:16→16:49)
[2024-08-08 03:26] LABS: Anti-Double Strand DNA AB 2 IU/mL
[2024-08-08] MEDS: sucralfate 1 gm/10 mL Oral Liq UDC PO ×4 (04:30→22:25)
[2024-08-08 07:06] LABS: Basophils % 0.6 %; Eosinophils # 0.1 10^3/uL (0.0-0.8); Eosinophils % 2.5 %; Hematocrit 24.6 % (37-53); Lymphocytes # 1.4 10^3/uL (0.8-4.8); Lymphocytes % 28.2 %; Mean Corpuscular HGB Conc 29.7 g/dL (30-55); Mean Corpuscular Volume 97.6 fl (82-101); Mean Platelet Volume 11.7 fL (7.4-10.4); Monocytes # 0.6 10^3/uL (0.2-0.9); Monocytes % 12.9 %; Neutrophils # 2.66 10^3/uL (1.8-7.7); Neutrophils % 55.6 %; Nucleated Red Blood Cells % 0 %; Platelet Count 126 10^3/cmm (157-399); Red Blood Count 2.52 10^6/uL (3.85-5.65); Red Cell Distribution Width 17.7 % (12.1-15.1); White Blood Count 4.79 10^3/uL (3.29-11.43)
[2024-08-08 07:30] LABS: Glucose Point of Care 97 mg/dL (70-110)
[2024-08-08 07:37] LABS: Alanine Aminotransferase 14 U/L (0-41); Albumin Level 2.5 g/dL (3.5-5.2); Alkaline Phosphatase 224 U/L (40-130); Aspartate Amino Transferase 25 U/L (0-40); Blood Urea Nitrogen 64 mg/dL (6-20); C Reactive Protein 91.1 mg/L (0.0-4.9); Carbon Dioxide 25 mmol/L (22-29); Chloride 97 mmol/L (98-107); Globulin 4.2 g/dL (1.3-4.6); Glomerular Filtration Rate 15.7 mL/min (90-130); Glucose 81 mg/dL (65-115); Magnesium 2.2 mg/dL (1.7-2.3); Osmolality Calculated 299 mOsm/kg (285-295); Phosphorus 5.7 mg/dL (2.5-4.5); Sodium 136 mmol/L (136-145); Total Bilirubin 0.6 mg/dL (0.15-1.2); Total Protein 6.7 g/dL (6.6-8.7)
[2024-08-08 07:47] LABS: Anion Gap 18.1 (5-19); Potassium 4.1 mmol/L (3.5-5.1)
[2024-08-08] MEDS: escitalopram 10 mg Tablet 5 MG PO (08:13)
[2024-08-08] MEDS: gabapentin 100 mg Capsule PO (08:13)
[2024-08-08] MEDS: sennosides-docusate Tablet 1 TAB PO (08:13)
[2024-08-08] MEDS: pantoprazole 40 mg SDV IVP ×2 (08:13→17:51)
[2024-08-08] MEDS: aspirin 81 mg EC Tablet PO (08:13)
[2024-08-08] MEDS: thiamine 100 mg Tablet PO (08:14)
[2024-08-08] MEDS: doxazosin 4 mg Tablet 8 MG PO (08:14)
[2024-08-08] MEDS: oxyCODONE 5 mg IR Tab/Cap PO ×2 (08:22→14:04)
--- NOTE | 2024-08-08 09:14 | P.PN_ITS ---
Subjective 2 Subjective: The patient was seen and examined with the nurse. The patient is much more awake alert interactive. The patient is comfortable on nasal cannula oxygen. Patient complains of significant edema. Patient is urinating with a Nielsen. No nausea vomiting fevers chills itching cramps or diarrhea. Denies shortness of breath. Medications: Reviewed: Yes Medication Review Details: Current Medications Acetaminophen (Acetaminophen 500 Mg Tablet) 500 mg PO Q4H PRN PRN Reason: fever Albuterol/Ipratropium (Ipratropium-Albuterol 3 Ml Neb) 3 ml INHALATION Q6H PRN PRN Reason: SHORTNESS OF BREATH Albuterol/Ipratropium (Ipratropium-Albuterol 3 Ml Neb) 3 ml INHALATION Q6H.RESP PRN PRN Reason: shortness of breath Aspirin (Aspirin 81 Mg Ec Tablet) 81 mg PO DAILY [facility] Last Admin: 08/08/24 08:13 Dose: 81 mg Doxazosin Mesylate (Doxazosin 4 Mg Tablet) 8 mg PO DAILY [facility] Last Admin: 08/08/24 08:14 Dose: 8 mg Escitalopram Oxalate (Escitalopram 10 Mg Tablet) 5 mg PO DAILY [facility] Last Admin: 08/08/24 08:13 Dose: 5 mg Furosemide (Furosemide 10 Mg/Ml Sdv 10ml) 60 mg IVP Q12H [facility] Last Admin: 08/08/24 02:16 Dose: 60 mg Gabapentin (Gabapentin 100 Mg Capsule) 100 mg PO DAILY [facility] Last Admin: 08/08/24 08:13 Dose: 100 mg Glucagon (Glucagon 1 Mg/Ml Kit 1 Ml) 1 mg IM ONCE PRN; Protocol PRN Reason: Adult Acute Hypoglycemia Nursing Prot. Dextrose (D5w) 500 mls @ 0 mls/hr IV ONCE PRN; Protocol PRN Reason: Adult Acute Hypoglycemia Prot Dextrose (D10w) 250 mls @ 1,000 mls/hr IV PRN PRN; Protocol PRN Reason: Adult Acute Hypoglycemia Nursing Protocol Dextrose (D10w) 125 mls @ 750 mls/hr IV PRN PRN PRN Reason: HYPOGLYCEMIA Piperacillin Sod/Tazobactam (Sod 3.375 gm/ Sodium Chloride) 50 mls @ 12.5 mls/hr IV Q8H [facility]; Protocol Last Admin: 08/08/24 08:13 Dose: 12.5 mls/hr Albumin Human (Albumin) 12.5 gm in 50 mls @ 60 mls/hr IV PRN PRN PRN Reason: Hypotension and/or symptomatic Insulin Human Lispro (Insulin Lispro 100 Unit/1 Ml) 0 unit SUBCUT WM&BEDTIME [facility]; Protocol Last Admin: 08/08/24 07:30 Dose: Not Given Itraconazole (Itraconazole 100 Mg Capsule) 200 mg PO Q12H [facility] Last Admin: 08/08/24 08:13 Dose: 200 mg Ondansetron HCl (Ondansetron 2 Mg/Ml Sdv 2 Ml) 4 mg IVP Q6H PRN PRN Reason: NAUSEA AND VOMITING Oxycodone HCl (Oxycodone 5 Mg Ir Tab/Cap) 5 mg PO Q4H PRN PRN Reason: pain Last Admin: 08/08/24 08:22 Dose: 5 mg Pantoprazole Sodium (Pantoprazole 40 Mg Sdv) 40 mg IVP BID [facility] Last Admin: 08/08/24 08:13 Dose: 40 mg Senna/Docusate Sodium (Sennosides-Docusate Tablet) 1 tab PO DAILY [facility] Last Admin: 08/08/24 08:13 Dose: 1 tab Sucralfate (Sucralfate 1 Gm/10 Ml Oral Liq Udc) 1 gm PO Q6H [facility] Last Admin: 08/08/24 04:30 Dose: 1 gm Thiamine Mononitrate (Thiamine 100 Mg Tablet) 100 mg PO DAILY [facility] Last Admin: 08/08/24 08:14 Dose: 100 mg Vitals/I&O/Wt Last Vital Signs Temp 98.2 F 08/08/24 04:00 Pulse 67 08/08/24 08:21 Resp 18 08/08/24 08:22 BP 135/70 08/08/24 04:00 Pulse Ox 95 08/08/24 08:22 O2 Del Method Nasal Cannula 08/08/24 08:21 O2 Flow Rate 3 08/08/24 08:21 08/07/24 08/08/24 08/08/24 22:59 06:59 14:59 Intake Total 1080 / 2430 50 / 2480 Output Total 951 / 3701 Balance 129 / -1271 50 / -1221 Weight last 48 hrs Weight 116 kg Weight 115 kg Weight 115 kg Weight 117 kg Physical Exam 2 Narrative: obese man in bed, sitting up, comfortable, BP improved, afebrile heent- nc/at, eomi neck supple lungs clear heart + s1, s2 abdomen- soft +bs ext b/l edema2-3+ groin to legs neuro-more awake and interactive + femoral dialysis catheter + nielsen catheter Urinary Catheter Management: Nielsen: Cath Placed During This Visit: yes Reason for Continuing Indwelling Catheter: Accurate Measurement of Urinary Output in Critically Ill Patients Urinary Catheter Date of Insertion: 08/05/24 Urinary Catheter Time of Insertion: 04:40 Data 08/08/24 05:24 08/08/24 05:24 Micro: Microbiology 08/06/24 17:15 Blood Culture - Preliminary Blood NEGATIVE TO DATE 08/05/24 00:18 Blood Culture - Preliminary Blood Micrococcus and related genera 08/06/24 15:30 Blood Culture - Preliminary Blood NEGATIVE TO DATE 08/05/24 16:46 Urine Culture - Final Urine,Clean Catch 08/05/24 04:52 Urine Culture - Final Urine Catheterized A&P Assessment and plan (1) REBECCA (acute kidney injury): 54 year old male who recently got discharged on 08/01 from [facility] after prolonged hospitalization. Patient is here s/p fall w/ edema, REBECCA, anemia, confusion 1. REBECCA- please get old cr values pt has hematuria, leukocytes and protein on u/a UPCR under 1 -MS improved -hyponatremia improved. na is now 136 -hyperkalemia improved -normal c3, c4. negative hepatitis panel -await jeovanny, anca, anti-gbm -normal haptoglobin -no hydronephrosis on renal us -phos improved -check spep, sife, iron studies, b12, folate, ferritin -hold dialysis today- monitor for renal recovery ew. diuretics 2. anemia, and plts dropped to 126 - await iron studies seen and examined w/ the aide of a nurse using A/V equipment =pt consented to telehealth and to Hemodialysis Plan as above PDMP PDMP Reviewed: Not Reviewed Attestations 2 Medical Necessity Statement*: per hospitalist Time Spent in Patient Care: 16 - 35 minutes (>than 50% of time sp ent in counselling and/or direct pt care on unit) . Coding Level of Care Code Acute Code for [facility] Diagnoses REBECCA (acute kidney injury) N17.9
[2024-08-08 09:44] LABS: Ferritin 156 ng/mL (30-400); Iron 28 ug/dL (59-158); Percent Saturation 12.9 % (20-50); Total Iron Binding Capacity 217 mcg/dl; Unsaturated Iron Binding 189 ug/dL (112-347)
[2024-08-08 11:16] LABS: Glucose Point of Care 166 mg/dL (70-110)
[2024-08-08] MEDS: insulin lispro 100 unit/1 mL SUBCUT ×3 (12:12→20:30)
--- NOTE | 2024-08-08 15:16 | P.PN_ITS ---
Subjective 2 Subjective: Patient was seen this morning, currently alert awake following all commands, denies any fevers, no chills, no cough does have lower extremity edema which persists but improving, Vitals/I&O/Wt Last Vital Signs Temp 98.2 F 08/08/24 04:00 Pulse 66 08/08/24 15:13 Resp 16 08/08/24 14:04 BP 135/70 08/08/24 12:00 Pulse Ox 95 08/08/24 14:04 O2 Del Method Nasal Cannula 08/08/24 12:00 O2 Flow Rate 3 08/08/24 08:21 08/08/24 08/08/24 08/08/24 06:59 14:59 22:59 Intake Total 50 / 2480 300 / 300 Output Total 700 / 700 Balance 50 / -1221 -400 / -400 Weight last 48 hrs Weight 116 kg Weight 115 kg Weight 115 kg Physical Exam 2 Const: COMMON NORMALS: no acute distress and patient oriented x3 Resp: COMMON NORMALS: normal respiratory effort, No retractions and No use of accessory muscles AUSCULTATION: crackles Cardio: COMMON NORMALS: regular rate, regular rhythm, S1 normal heart sound present and S2 normal heart sound present RATE: regular rate RHYTHM: r egular rhythm HEART SOUNDS: S1 normal heart sound present and S2 normal heart sound present GI: COMMON NORMALS: Normal to inspection, nondistended, normoactive bowel sounds present and non-tender Extremity: COMMON NORMALS: no clubbing, cyanosis or edema NARRATIVE EXTREMITY EXAM: 1+ pitting edema, anasarca Neuro: COMMON NORMALS: patient oriented x3 Psych: COMMON NORMALS: mental status grossly normal Urinary Catheter Management: Jama: Cath Placed During This Visit: yes Reason for Continuing Indwelling Catheter: Accurate Measurement of Urinary Output in Critically Ill Patients Urinary Catheter Date of Insertion: 08/05/24 Urinary Catheter Time of Insertion: 04:40 Data 08/08/24 05:24 08/08/24 05:24 Micro: Microbiology 08/08/24 14:27 Occult Blood (FIT) - Final Stool Routine Collection 08/06/24 17:15 Blood Culture - Preliminary Blood NEGATIVE TO DATE 08/05/24 00:18 Blood Culture - Preliminary Blood Micrococcus and related genera 08/06/24 15:30 Blood Culture - Preliminary Blood NEGATIVE TO DATE 08/05/24 16:46 Urine Culture - Final Urine,Clean Catch 08/05/24 04:52 Urine Culture - Final Urine Catheterized A&P Assessment and plan (1) Congestive heart failure: (2) Renal insufficiency: (3) Fall: (4) Head injury: (5) Hypoxemia: (6) Dyspnea: (7) Anasarca: (8) Hyperkalemia: (9) Liver cirrhosis: (10) Anemia: Plan Prolonged hospitalization at outside facility where patient was intubated for angioedema, MRSA pneumonia, superimposed bacterial infection with underlying influenza he was treated for 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 with prolonged antimicrobial therapy including antibiotic and antifungal, suffered from dysphagia related to intubation requiring tracheostomy, PEG tube was placed, was recently discharged from the rehab 08/01, needing to establish care with PCP, general surgery, orthopedics presented to the hospital after sustaining a fall at home Generalized weakness and fatigue Likely secondary to acute renal failure, hypoxia, fluid overload, deconditioning Urinary tract infection -Continue Zosyn -Follow urine culture Micrococcus species in blood culture -Likely contamination as in 1 out of 4 blood cultures -However will repeat blood cultures Acute hypoxic respiratory failure Anasarca, fluid overload, increase scrotal edema -2+ edema, -Likely secondary to CKD, diastolic dysfunction -With lackluster response to IV diuresis, Plan -Monitor respiratory status closely -lasix 60mg IV BID -Status post dialysis catheter placement, status post 2 session of dialysis, Liver cirrhosis? -CT imaging showing cirrhosis of the liver Patient endorsing drinking alcohol in the past, requested ammonia level, Acute to on chronic anemia: EGD 07/28: Showed gastritis, there was no comment on any signs of portal hypertension or esophageal varices 07/30 colonoscopy: Internal hemorrhoids, multiple polyps were removed Hold off on anticoagulant therapy Hemoccult stool positive plan Continue Protonix, carafate Acute on chronic kidney disease, with lackluster urine output worsening creatinine with hypervolemia and anasarca Plan -Nephrology consulted, Hyperkalemia, resolved -Status post multiple doses of Kayexalate, insulin, D50 -Status post dialysis Dysphagia: Secondary to respiratory failure 06/30 PEG tube Patient was cleared by speech therapy for for soft bite-size solids with mildly thick liquids with precautions he was asked to upgrade to regular diet with mildly thick liquids with precaution 07/13 Patient will need another evaluation for PEG tube removal after 8 weeks Flushing of PEG tube with 30 mL water on normal saline daily to keep it patent Plan Continue dysphagia level 4 diet, thin liquids Stroke in the past with left-sided weakness Superficial venous thrombosis of right cephalic Short course of anticoagulation was completed 07/30 Right shoulder rotator cuff tear: Needs outpatient Ortho evaluation Aspiration done 07/06 no evidence of infection Depressed mood/anxiety: Continue Lexapro Type II uncontrolled diabetes A1c 11.7 06/12/2024 Patient was prescribed Lantus 10 units along sliding scale and Farxiga PLan -low dose insulin sliding scale Hypertension: hold bp Elevated troponin: -Type I versus type II NSTEMI Patient not endorsing chest pain, EKG without ischemic or infarctive changes Hemoglobin around 7.9, I will hold off on adding any anticoagulating agent CONCLUSIONS LV systolic function is normal with EF of 55-60% Left atrial dilation Mild mitral regurgitation Mild tricuspid regurgitation. Mild pulmonary hypertension IVC appears to be dilated No comparison studies are available. 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 Goals of care discussed with the patient in front of his son: Patient is stating that this time if he goes into cardiac arrest arrest he does not want chest compressions defibrillation or intubation, in case of these events he does not want any aggressive intervention and want to pursue comfort care, this was discussed in detail with the patient while son was at the bedside SCDs for DVT prophylaxis Plan for today PT OT, up into a chair, continue IV diuresis, await nephrology's recommendation repeat hemoglobin this afternoon PDMP PDMP Reviewed: Not Reviewed Attestations 2 Medical Necessity Statement*: Patient requires hospitalization for acute anemia, fluid overload, requiring IV diuresis Diagnoses Congestive heart failure I50.9 Renal insufficiency N28.9 Fall W19.XXXA Head injury S09.90XA Hypoxemia R09.02 Dyspnea R06.00 Anasarca R60.1 Hyperkalemia E87.5 Liver cirrhosis K74.60 Anemia D64.9
[2024-08-08 15:46] LABS: Basophils % 0.5 %; Eosinophils # 0.1 10^3/uL (0.0-0.8); Eosinophils % 2.6 %; Hematocrit 25.1 % (37-53); Lymphocytes # 1.1 10^3/uL (0.8-4.8); Lymphocytes % 26.4 %; Mean Corpuscular HGB Conc 29.5 g/dL (30-55); Mean Corpuscular Hemoglobin 28.9 pg (27-33); Mean Platelet Volume 11.8 fL (7.4-10.4); Monocytes # 0.5 10^3/uL (0.2-0.9); Monocytes % 10.6 %; Neutrophils # 2.53 10^3/uL (1.8-7.7); Neutrophils % 59.7 %; Nucleated Red Blood Cells % 0 %; Platelet Count 143 10^3/cmm (157-399); Red Blood Count 2.56 10^6/uL (3.85-5.65); Red Cell Distribution Width 17.5 % (12.1-15.1); White Blood Count 4.24 10^3/uL (3.29-11.43)
[2024-08-08 17:17] LABS: Glucose Point of Care 204 mg/dL (70-110)
--- NOTE | 2024-08-08 18:23 | PC.NURSE ---
PEG tube flushed with 20ML NS.
[2024-08-08 20:22] LABS: Glucose Point of Care 221 mg/dL (70-110)
[2024-08-09] VITALS (19 sets, daily range): BP systolic 135–165; BP diastolic 51–71; PULSE 62–75; RESP 9–19; TEMP 36.8–37; O2SAT 91–95
[2024-08-09] MEDS: oxyCODONE 5 mg IR Tab/Cap PO (00:51)
[2024-08-09] MEDS: piperacillin-tazobactam 3.375 GM in sodium chloride 0.9% (plus) 50 ML IV ×3 (00:51→16:21)
[2024-08-09] MEDS: sucralfate 1 gm/10 mL Oral Liq UDC PO ×2 (03:19→09:33)
[2024-08-09] MEDS: FUROsemide 10 mg/mL SDV 10mL 60 MG IVP (03:19)
[2024-08-09 03:56] LABS: Basophils % 0.4 %; Eosinophils # 0.1 10^3/uL (0.0-0.8); Eosinophils % 2.4 %; Hematocrit 24.3 % (37-53); Lymphocytes # 1.2 10^3/uL (0.8-4.8); Lymphocytes % 26.5 %; Mean Corpuscular HGB Conc 29.6 g/dL (30-55); Mean Corpuscular Volume 94.6 fl (82-101); Mean Platelet Volume 11.3 fL (7.4-10.4); Monocytes # 0.6 10^3/uL (0.2-0.9); Monocytes % 12.4 %; Neutrophils # 2.63 10^3/uL (1.8-7.7); Neutrophils % 58.1 %; Nucleated Red Blood Cells % 0 %; Platelet Count 145 10^3/cmm (157-399); Red Blood Count 2.57 10^6/uL (3.85-5.65); Red Cell Distribution Width 17.1 % (12.1-15.1); White Blood Count 4.53 10^3/uL (3.29-11.43)
[2024-08-09 04:25] LABS: ANCA Screen NEGATIVE (NEGATIVE)
[2024-08-09 04:29] LABS: Alanine Aminotransferase 13 U/L (0-41); Albumin Level 2.6 g/dL (3.5-5.2); Alkaline Phosphatase 226 U/L (40-130); Aspartate Amino Transferase 19 U/L (0-40); Blood Urea Nitrogen 61 mg/dL (6-20); Calcium 7.9 mg/dL (8.5-10.5); Carbon Dioxide 28 mmol/L (22-29); Chloride 98 mmol/L (98-107); Glomerular Filtration Rate 16.1 mL/min (90-130); Glucose 139 mg/dL (65-115); Magnesium 2.1 mg/dL (1.7-2.3); Osmolality Calculated 304 mOsm/kg (285-295); Phosphorus 5.1 mg/dL (2.5-4.5); Sodium 137 mmol/L (136-145); Total Bilirubin 0.5 mg/dL (0.15-1.2); Total Protein 6.6 g/dL (6.6-8.7)
[2024-08-09 07:35] LABS: Glucose Point of Care 136 mg/dL (70-110)
[2024-08-09] MEDS: escitalopram 10 mg Tablet 5 MG PO (08:30)
[2024-08-09] MEDS: pantoprazole 40 mg SDV IVP ×2 (08:30→17:02)
[2024-08-09] MEDS: gabapentin 100 mg Capsule PO (08:30)
[2024-08-09] MEDS: aspirin 81 mg EC Tablet PO (08:30)
[2024-08-09] MEDS: thiamine 100 mg Tablet PO (08:30)
[2024-08-09] MEDS: sennosides-docusate Tablet 1 TAB PO (08:30)
[2024-08-09] MEDS: doxazosin 4 mg Tablet 8 MG PO (08:30)
--- NOTE | 2024-08-09 09:01 | PM.PN ---
Subjective Subjective: The patient was seen and examined. The patient was having to urinate. The patient is still swollen. The patient like to leave the ICU. The patient denies nausea vomiting fevers chills itching or cramps. Medications: Reviewed: Yes Medication Review Details: Current Medications Acetaminophen (Acetaminophen 500 Mg Tablet) 500 mg PO Q4H PRN PRN Reason: fever Albuterol/Ipratropium (Ipratropium-Albuterol 3 Ml Neb) 3 ml INHALATION Q6H.RESP PRN PRN Reason: shortness of breath Aspirin (Aspirin 81 Mg Ec Tablet) 81 mg PO DAILY [facility] Last Admin: 08/09/24 08:30 Dose: 81 mg Doxazosin Mesylate (Doxazosin 4 Mg Tablet) 8 mg PO DAILY [facility] Last Admin: 08/09/24 08:30 Dose: 8 mg Escitalopram Oxalate (Escitalopram 10 Mg Tablet) 5 mg PO DAILY [facility] Last Admin: 08/09/24 08:30 Dose: 5 mg Furosemide (Furosemide 10 Mg/Ml Sdv 10ml) 60 mg IVP Q12H [facility] Last Admin: 08/09/24 03:19 Dose: 60 mg Gabapentin (Gabapentin 100 Mg Capsule) 100 mg PO DAILY [facility] Last Admin: 08/09/24 08:30 Dose: 100 mg Glucagon (Glucagon 1 Mg/Ml Kit 1 Ml) 1 mg IM ONCE PRN; Protocol PRN Reason: Adult Acute Hypoglycemia Nursing Prot. Dextrose (D5w) 500 mls @ 0 mls/hr IV ONCE PRN; Protocol PRN Reason: Adult Acute Hypoglycemia Prot Dextrose (D10w) 250 mls @ 1,000 mls/hr IV PRN PRN; Protocol PRN Reason: Adult Acute Hypoglycemia Nursing Protocol Dextrose (D10w) 125 mls @ 750 mls/hr IV PRN PRN PRN Reason: HYPOGLYCEMIA Piperacillin Sod/Tazobactam (Sod 3.375 gm/ Sodium Chloride) 50 mls @ 12.5 mls/hr IV Q8H [facility]; Protocol Last Admin: 08/09/24 08:30 Dose: 12.5 mls/hr Albumin Human (Albumin) 12.5 gm in 50 mls @ 60 mls/hr IV PRN PRN PRN Reason: Hypotension and/or symptomatic Insulin Human Lispro (Insulin Lispro 100 Unit/1 Ml) 0 unit SUBCUT WM&BEDTIME [facility]; Protocol Last Admin: 08/09/24 07:38 Dose: Not Given Itraconazole (Itraconazole 100 Mg Capsule) 200 mg PO Q12H [facility] Last Admin: 08/09/24 08:30 Dose: 200 mg Ondansetron HCl (Ondansetron 2 Mg/Ml Sdv 2 Ml) 4 mg IVP Q6H PRN PRN Reason: NAUSEA AND VOMITING Pantoprazole Sodium (Pantoprazole 40 Mg Sdv) 40 mg IVP BID [facility] Last Admin: 08/09/24 08:30 Dose: 40 mg Senna/Docusate Sodium (Sennosides-Docusate Tablet) 1 tab PO DAILY [facility] Last Admin: 08/09/24 08:30 Dose: 1 tab Sucralfate (Sucralfate 1 Gm/10 Ml Oral Liq Udc) 1 gm PO Q6H [facility] Last Admin: 08/09/24 03:19 Dose: 1 gm Thiamine Mononitrate (Thiamine 100 Mg Tablet) 100 mg PO DAILY [facility] Last Admin: 08/09/24 08:30 Dose: 100 mg Vitals/I&O/Wt Last Vital Signs Temp 98.2 F 08/09/24 04:00 Pulse 65 08/09/24 05:45 Resp 14 08/09/24 04:00 BP 136/71 08/09/24 04:00 Pulse Ox 95 08/09/24 04:00 O2 Del Method Nasal Cannula 08/08/24 16:00 O2 Flow Rate 2 08/08/24 16:00 08/08/24 08/09/24 08/09/24 22:59 06:59 14:59 Intake Total 750 / 1050 1010 / 2060 Output Total 800 / 1500 1000 / 2500 Balance -50 / -450 10 / -440 Weight last 48 hrs Weight 117 kg Weight 116 kg Weight 115 kg Physical Exam Narrative: obese man in bed, sitting up, comfortable VSS, afebrile heent- nc/at, eomi neck supple lungs clear heart + s1, s2 abdomen- soft +bs ext b/l edema2-3+ groin to legs neuro-awake and interactive, moves all extremities, oriented + femoral dialysis catheter + nielsen catheter Urinary Catheter Management: Nielsen: Cath Placed During This Visit: yes Reason for Continuing Indwelling Catheter: Accurate Measurement of Urinary Output in Critically Ill Patients Urinary Catheter Date of Insertion: 08/05/24 Urinary Catheter Time of Insertion: 04:40 Data 08/09/24 03:49 08/09/24 03:49 Micro: Microbiology 08/08/24 14:27 Occult Blood (FIT) - Final Stool Routine Collection A&P Assessment and plan (1) REBECCA (acute kidney injury): 54 year old male who recently got discharged on 08/01 from [facility] after prolonged hospitalization. Patient is here s/p fall w/ edema, REBECCA, anemia, confusion 1. REBECCA- please get old cr values pt has hematuria, leukocytes and protein on u/a UPCR under 1 -MS improved -hyponatremia improved. na is now 137 -hyperkalemia improved -normal c3, c4. negative hepatitis panel -await jeovanny, anca, anti-gbm -normal haptoglobin -no hydronephrosis on renal us -phos improved -check spep, sife, iron sat 12.9%, ferritin 156- give iv iron -hold dialysis today- monitor for renal recovery on diuretics 2. anemia, and plts dropped to 126 -DIMITRIOS- start iv iron seen and examined w/ the aide of a nurse using A/V equipment =pt consented to telehealth and to Hemodialysis Plan as above PDMP PDMP Reviewed: Not Reviewed Attestations Medical Necessity Statement*: anemia, rebecca Time Spent in Patient Care: 16 - 35 minutes (>than 50% of time spent in counselling and/or direct pt care on unit). Coding Level of Care Code Acute Code for [facility] Diagnoses REBECCA (acute kidney injury) N17.9
[2024-08-09] MEDS: iron sucrose 200 MG in sodium chloride 0.9% (100 ml) 100 ML 220 MG IV (09:33)
[2024-08-09 11:42] LABS: Glucose Point of Care 225 mg/dL (70-110)
[2024-08-09] MEDS: insulin lispro 100 unit/1 mL SUBCUT ×3 (12:08→20:57)
[2024-08-09 14:04] LABS: Immunofixation Serum Normal pattern.
--- NOTE | 2024-08-09 14:57 | P.PN_ITS ---
Subjective 2 Subjective: Patient was seen this morning, he is alert oriented x 3, following all commands, edema is improving, shortness of breath is improving Vitals/I&O/Wt Last Vital Signs Temp 98.6 F 08/09/24 08:00 Pulse 71 08/09/24 14:46 Resp 12 08/09/24 12:00 BP 150/68 08/09/24 12:00 Pulse Ox 95 08/09/24 12:00 O2 Del Method Nasal Cannula 08/09/24 12:00 O2 Flow Rate 2 08/09/24 11:04 08/08/24 08/09/24 08/09/24 22:59 06:59 14:59 Intake Total 750 / 1050 1010 / 2060 760.000 / 760.000 Output Total 800 / 1500 1000 / 2500 1000 / 1000 Balance -50 / -450 10 / -440 -240.000 / -240.000 Weight last 48 hrs Weight 117 kg Weight 116 kg Physical Exam 2 Const: COMMON NORMALS: no acute distress and patient oriented x3 Resp: COMMON NORMALS: normal respiratory effort, No retractions, No use of accessory muscles and clear to auscultation bilaterally AUSCULTATION: clear to auscultation bilaterally Cardio: COMMON NORMALS: regular rate, regular rhythm, S1 normal heart sound present and S2 normal heart sound present RATE: regular rate RHYTHM: r egular rhythm HEART SOUNDS: S1 normal heart sound present and S2 normal heart sound present GI: COMMON NORMALS: Normal to inspection, nondistended, normoactive bowel sounds present and non-tender Extremity: COMMON NORMALS: no pedal edema Neuro: COMMON NORMALS: patient oriented x3 Psych: COMMON NORMALS: mental status grossly normal Urinary Catheter Management: Jama: Cath Placed During This Visit: yes Reason for Continuing Indwelling Catheter: Accurate Measurement of Urinary Output in Critically Ill Patients Urinary Catheter Date of Insertion: 08/05/24 Urinary Catheter Time of Insertion: 04:40 Data 08/09/24 03:49 08/09/24 03:49 Micro: Microbiology 08/08/24 14:27 Occult Blood (FIT) - Final Stool Routine Collection A&P Assessment and plan (1) Congestive heart failure: (2) Renal insufficiency: (3) Fall: (4) Head injury: (5) Hypoxemia: (6) Dyspnea: (7) Anasarca: (8) Hyperkalemia: (9) Liver cirrhosis: (10) Anemia: Plan Prolonged hospitalization at outside facility where patient was intubated for angioedema, MRSA pneumonia, superimposed bacterial infection with underlying influenza he was treated for 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 with prolonged antimicrobial therapy including antibiotic and antifungal, suffered from dysphagia related to intubation requiring tracheostomy, PEG tube was placed, was recently discharged from the rehab 08/01, needing to establish care with PCP, general surgery, orthopedics presented to the hospital after sustaining a fall at home Generalized weakness and fatigue Likely secondary to acute renal failure, hypoxia, fluid overload, deconditioning Urinary tract infection -Position to cefdinir -Follow urine culture so far no growth Micrococcus species in blood culture -Likely contamination as in 1 out of 4 blood cultures -However will repeat blood cultures, repeat blood cultures so far negative Acute hypoxic respiratory failure Anasarca, fluid overload, increase scrotal edema -2+ edema, -Likely secondary to CKD, diastolic dysfunction -With lackluster response to IV diuresis, Plan -Monitor respiratory status closely -lasix 40 mg IV twice daily -Status post dialysis catheter placement, status post 2 session of dialysis, currently dialysis is on hold Liver cirrhosis? -CT imaging showing cirrhosis of the liver Patient endorsing drinking alcohol in the past, requested ammonia level, Acute to on chronic anemia: EGD 07/28: Showed gastritis, there was no comment on any signs of portal hypertension or esophageal varices 07/30 colonoscopy: Internal hemorrhoids, multiple polyps were removed Hold off on anticoagulant therapy Hemoccult stool positive plan Continue Protonix, carafate Acute on chronic kidney disease, with lackluster urine output worsening creatinine with hypervolemia and anasarca Plan -Nephrology consulted, -If urine output continues to improve, will likely remove dialysis catheter Hyperkalemia, resolved -Status post multiple doses of Kayexalate, insulin, D50 -Status post dialysis Dysphagia: Secondary to respiratory failure 06/30 PEG tube Patient was cleared by speech therapy for for soft bite-size solids with mildly thick liquids with precautions he was asked to upgrade to regular diet with mildly thick liquids with precaution 07/13 Patient will need another evaluation for PEG tube removal after 8 weeks Flushing of PEG tube with 30 mL water on normal saline daily to keep it patent Plan Continue dysphagia level 4 diet, thin liquids Stroke in the past with left-sided weakness Superficial venous thrombosis of right cephalic Short course of anticoagulation was completed 07/30 Right shoulder rotator cuff tear: Needs outpatient Ortho evaluation Aspiration done 07/06 no evidence of infection Depressed mood/anxiety: Continue Lexapro Type II uncontrolled diabetes A1c 11.7 06/12/2024 Patient was prescribed Lantus 10 units along sliding scale and Farxiga PLan -low dose insulin sliding scale Hypertension: hold bp medications Elevated troponin: -Type I versus type II NSTEMI Patient not endorsing chest pain, EKG without ischemic or infarctive changes Hemoglobin around 7.9, I will hold off on adding any anticoagulating agent CONCLUSIONS LV systolic function is normal with EF of 55-60% Left atrial dilation Mild mitral regurgitation Mild tricuspid regurgitation. Mild pulmonary hypertension IVC appears to be dilated No comparison studies are available. 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 Goals of care discussed with the patient in front of his son: Patient is stating that this time if he goes into cardiac arrest arrest he does not want chest compressions defibrillation or intubation, in case of these events he does not want any aggressive intervention and want to pursue comfort care, this was discussed in detail with the patient while son was at the bedside SCDs for DVT prophylaxis, Lovenox relatively contraindicated given Hemoccult positive stools, acute anemia Plan for today continue IV diuresis PDMP PDMP Reviewed: Not Reviewed Attestations 2 Medical Necessity Statement*: Patient requires hospitalization for fluid overload requiring IV diuresis, end- stage renal disease dialysis, anemia Diagnoses Congestive heart failure I50.9 Renal insufficiency N28.9 Fall W19.XXXA Head injury S09.90XA Hypoxemia R09.02 Dyspnea R06.00 Anasarca R60.1 Hyperkalemia E87.5 Liver cirrhosis K74.60 Anemia D64.9
[2024-08-09] MEDS: FUROsemide 10 mg/mL SDV 10mL 40 MG IVP (16:20)
[2024-08-09] MEDS: cefdinir 300 MG CAPSULE PO (17:02)
[2024-08-09 17:16] LABS: Glucose Point of Care 244 mg/dL (70-110)
--- NOTE | 2024-08-09 17:29 | PC.NURSE ---
PEG tube flushed with 20ml NS.
[2024-08-09 20:56] LABS: Glucose Point of Care 221 mg/dL (70-110)
[2024-08-10] VITALS (18 sets, daily range): BP systolic 126–161; BP diastolic 51–83; PULSE 62–81; RESP 13–19; TEMP 36.4; O2SAT 90–96
[2024-08-10] MEDS: acetaminophen 500 mg Tablet PO ×2 (02:21→10:54)
[2024-08-10] MEDS: FUROsemide 10 mg/mL SDV 10mL 40 MG IVP ×2 (02:22→15:23)
[2024-08-10] MEDS: piperacillin-tazobactam 3.375 GM in sodium chloride 0.9% (plus) 50 ML IV ×3 (02:23→16:41)
[2024-08-10 05:18] LABS: Basophils % 0.2 %; Eosinophils # 0.1 10^3/uL (0.0-0.8); Eosinophils % 2.7 %; Hematocrit 25.3 % (37-53); Lymphocytes # 1.2 10^3/uL (0.8-4.8); Lymphocytes % 29.6 %; Mean Corpuscular HGB Conc 29.2 g/dL (30-55); Mean Corpuscular Hemoglobin 27.8 pg (27-33); Mean Corpuscular Volume 95.1 fl (82-101); Mean Platelet Volume 11.5 fL (7.4-10.4); Monocytes # 0.5 10^3/uL (0.2-0.9); Monocytes % 11.8 %; Neutrophils # 2.25 10^3/uL (1.8-7.7); Neutrophils % 55.5 %; Nucleated Red Blood Cells % 0 %; Platelet Count 148 10^3/cmm (157-399); Red Blood Count 2.66 10^6/uL (3.85-5.65); Red Cell Distribution Width 16.6 % (12.1-15.1); White Blood Count 4.06 10^3/uL (3.29-11.43)
[2024-08-10 05:48] LABS: Alanine Aminotransferase 12 U/L (0-41); Albumin Level 2.3 g/dL (3.5-5.2); Alkaline Phosphatase 217 U/L (40-130); Anion Gap 14.4 (5-19); Aspartate Amino Transferase 24 U/L (0-40); Blood Urea Nitrogen 58 mg/dL (6-20); Calcium 7.9 mg/dL (8.5-10.5); Carbon Dioxide 27 mmol/L (22-29); Chloride 99 mmol/L (98-107); Globulin 3.9 g/dL (1.3-4.6); Glomerular Filtration Rate 20.3 mL/min (90-130); Glucose 131 mg/dL (65-115); Magnesium 1.9 mg/dL (1.7-2.3); NT Pro B Type Natriuretic Pept 6995 pg/mL (0-125); Osmolality Calculated 302 mOsm/kg (285-295); Phosphorus 4.2 mg/dL (2.5-4.5); Potassium 3.4 mmol/L (3.5-5.1); Sodium 137 mmol/L (136-145); Total Bilirubin 0.5 mg/dL (0.15-1.2); Total Protein 6.2 g/dL (6.6-8.7)
[2024-08-10 08:09] LABS: Glucose Point of Care 129 mg/dL (70-110)
[2024-08-10] MEDS: pantoprazole 40 mg SDV IVP ×2 (08:18→17:00)
[2024-08-10] MEDS: aspirin 81 mg EC Tablet PO (08:18)
[2024-08-10] MEDS: doxazosin 4 mg Tablet PO (08:18)
[2024-08-10] MEDS: gabapentin 100 mg Capsule PO (08:18)
[2024-08-10] MEDS: cefdinir 300 MG CAPSULE PO ×2 (08:18→17:00)
[2024-08-10] MEDS: escitalopram 10 mg Tablet 5 MG PO (08:18)
[2024-08-10] MEDS: thiamine 100 mg Tablet PO (08:18)
[2024-08-10 10:16] LABS: Procalcitonin 0.15 ng/mL (0-0.5)
[2024-08-10] MEDS: iron sucrose 200 MG in sodium chloride 0.9% (100 ml) 100 ML 220 MG IV (10:56)
[2024-08-10 11:02] LABS: Glucose Point of Care 193 mg/dL (70-110)
--- NOTE | 2024-08-10 11:04 | USCV_ITS ---
Guido Whalen Age: 54 Gender: M : 1970 Exam Date: 08/10/2024 14:30 Ordering Phys: Renaldo Marvin MD Technologist: Exam Location: [facility] [place] Indication: bed stasis PROCEDURES: The venous duplex Doppler examination of both lower extremities was performed in the standard fashion. The following venous structures were evaluated: common femoral vein, profunda vein, proximal portion of the greater saphenous vein, superficial femoral vein, and the popliteal vein. In addition, the posterior tibial and peroneal trunk were evaluated. FINDINGS: Normal 2-D Doppler and augmentation and compressibility throughout the lower extremity venous structures. Additional imaging through the proximal calf veins also reveals no thrombus. Limited evaluation of the greater saphenous vein is patent with no thrombus. CONCLUSIONS No evidence of right lower extremity DVT. No evidence of left lower extremity DVT. Jamison Silvestre MD (Electronically Signed) Final Date: 10 August 2024 17:56 S
[2024-08-10 12:34] LABS: Glomerular Bsmt Membrane IGG <1.0 AI
[2024-08-10] MEDS: insulin lispro 100 unit/1 mL SUBCUT ×3 (13:03→21:08)
--- NOTE | 2024-08-10 13:15 | PM.PN ---
Subjective Subjective: Patient has no new complaints Medications: Reviewed: Yes Vitals/I&O/Wt Last Vital Signs Temp 97.5 F L 08/10/24 06:18 Pulse 67 08/10/24 12:00 Resp 15 08/10/24 12:00 BP 150/68 08/10/24 12:00 Pulse Ox 93 08/10/24 12:00 O2 Del Method Nasal Cannula 08/10/24 11:43 O2 Flow Rate 2 08/10/24 11:43 08/09/24 08/10/24 08/10/24 22:59 06:59 14:59 Intake Total 860 / 1620.000 290 / 1910.000 500 / 500 Output Total 400 / 1400 1450 / 2850 Balance 460 / 220.000 -1160 / -940.000 500 / 500 Weight last 48 hrs Weight 115 kg Weight 117 kg Physical Exam Narrative: GEN: alert, nad, conversant HEAD: atraumatic, normocephalic EYES: eomi, anicteric sclera HEENT: mmm NECK: no jvd CV: RRR LUNGS: diminished Bs bilaterally ABD: distended, soft, nt, +pre-sacral edema EXT: +2 BLE edema to thighs, +ve scrotal edema NEURO: grossly normal SKIN: no rash PSYCH: normal affect Urinary Catheter Management: Jama: Cath Placed During This Visit: yes Reason for Continuing Indwelling Catheter: Accurate Measurement of Urinary Output in Critically Ill Patients Urinary Catheter Date of Insertion: 08/05/24 Urinary Catheter Time of Insertion: 04:40 Data 08/10/24 05:07 08/10/24 05:07 Micro: Microbiology 08/05/24 00:09 Blood Culture - Final Blood NO GROWTH AFTER 5 DAYS 08/05/24 00:18 Blood Culture - Final Blood Micrococcus and related genera A&P Assessment and plan (1) REBECCA (acute kidney injury): REBECCA superimposd on ckd stage 3- He had a previous creatinine of 1.9. He has ckd stage 3 at baseline likely due to hypertensive and diabetic kidney disease. His rebecca is likely due to cardio-renal syndrome. He was initiated on hd on 08/06 and also had hd on 08/07. HIs creatinine is improving off hd and on iv diuretics. further work-up is pending - cont diuresis - start 1200 ml fluir restriction hyperkalemia- resolved acute on chronic HFpEF- i will cont lasix as above acute hypoxic respiratory failure- due to chf. i will cont lasix as above anemia- he is iron deficient and on iv iron hyponatremia- likely due to chf. improved PDMP PDMP Reviewed: Not Reviewed Attestations Medical Necessity Statement*: rebecca Time Spent in Patient Care: 25 minutes Coding Level of Care Code Acute Code for [facility] Fwd Diagnoses REBECCA (acute kidney injury) N17.9
[2024-08-10 16:20] LABS: Osmolality Urine 345 mOsm/kg (50-1200)
--- NOTE | 2024-08-10 16:34 | P.PN_ITS ---
Subjective 2 Subjective: Hospital course, labs appreciated. Patient seen laying comfortably in bed. On 2 L of oxygen supplementation. Awake and alert. States feeling better. Denies any nausea, vomiting, headache. Tolerating diet. Appreciate urine output. Not getting out of bed for now since admission. Hemodynamically stable and afebrile. Vitals/I&O/Wt Last Vital Signs Temp 97.5 F L 08/10/24 06:18 Pulse 79 08/10/24 14:00 Resp 19 H 08/10/24 14:00 BP 148/72 08/10/24 14:00 Pulse Ox 92 08/10/24 14:00 O2 Del Method Nasal Cannula 08/10/24 11:43 O2 Flow Rate 2 08/10/24 11:43 08/10/24 08/10/24 08/10/24 06:59 14:59 22:59 Intake Total 290 / 1910.000 500 / 500 Output Total 1450 / 2850 Balance -1160 / -940.000 500 / 500 Weight last 48 hrs Weight 115 kg Weight 117 kg Physical Exam 2 Const: COMMON NORMALS: no acute distress and patient oriented x3 GENERAL APPEARANCE: cooperative, comfortable and Edematous ORIENTATION/CONSCIOUSNESS: Yes awake, Yes oriented to person and Yes oriented to time Resp: COMMON NORMALS: normal respiratory effort, No retractions, No use of accessory muscles and clear to auscultation bilaterally AUSCULTATION: clear to auscultation bilaterally and crackles Cardio: COMMON NORMALS: regular rate, regular rhythm, S1 normal heart sound present and S2 normal heart sound present RATE: regular rate RHYTHM: r egular rhythm HEART SOUNDS: S1 normal heart sound present and S2 normal heart sound present GI: COMMON NORMALS: Normal to inspection, nondistended, normoactive bowel sounds present and non-tender Extremity: COMMON NORMALS: no clubbing, cyanosis or edema and no pedal edema NARRATIVE EXTREMITY EXAM: 1+ pitting edema, anasarca Neuro: COMMON NORMALS: patient oriented x3 SENSORIUM/ORIENTATION: Yes oriented to person and Yes oriented to time Psych: COMMON NORMALS: mental status grossly normal Skin: OTHER: Anasarca, scrotal edema Urinary Catheter Management: Jama: Cath Placed During This Visit: yes Reason for Continuing Indwelling Catheter: Accurate Measurement of Urinary Output in Critically Ill Patients Urinary Catheter Date of Insertion: 08/05/24 Urinary Catheter Time of Insertion: 04:40 Data 08/10/24 05:07 08/10/24 05:07 Micro: Microbiology 08/05/24 00:09 Blood Culture - Final Blood NO GROWTH AFTER 5 DAYS 08/05/24 00:18 Blood Culture - Final Blood Micrococcus and related genera A&P Assessment and plan (1) Renal insufficiency: (2) Hypoxemia: (3) Anasarca: (4) Congestive heart failure: (5) Anemia: (6) S/P percutaneous endoscopic gastrostomy (PEG) tube placement: (7) Blastomycosis of central nervous system: (8) Fall: (9) Head injury: (10) Dyspnea: (11) Hyperkalemia: (12) Liver cirrhosis: (13) Thrombocytopenia: (14) Physical deconditioning: Plan Prolonged hospitalization at outside facility where patient was intubated for angioedema, MRSA pneumonia, superimposed bacterial infection with underlying influenza he was treated for 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 with prolonged antimicrobial therapy including antibiotic and antifungal, suffered from dysphagia related to intubation requiring tracheostomy, PEG tube was placed, was recently discharged from the rehab 08/01, needing to establish care with PCP, general surgery, orthopedics presented to the hospital after sustaining a fall at home Generalized weakness and fatigue Likely secondary to acute renal failure, hypoxia, fluid overload, deconditioning Acute on chronic kidney disease: Nephrology on board. Post 2 sessions of dialysis. Monitor urine output. Currently improving. Dialysis as per nephrology team. Medical reconciliation done for nephrotoxic drugs. Acute to on chronic anemia: Baseline hemoglobin seems to be around 7-7.5. Most likely in setting of acute on chronic disease with kidney dysfunction. EGD 07/28: Showed gastritis, there was no comment on any signs of portal hypertension or esophageal varices 07/30 colonoscopy: Internal hemorrhoids, multiple polyps were removed Hold off on anticoagulant therapy Hemoccult stool positive Plan: Appreciate iron panel. Continue with IV iron supplementation. Check reticulocyte count. Continue Protonix, carafate Lower limb swelling: Complaining of increased swelling in the left lower limb. Complains of mild tenderness. Will check lower limb Dopplers. Did have superficial vein thrombosis of right cephalic on admission. Acute hypoxic respiratory failure: In setting of diastolic heart failure with baseline CKD. Anasarca, fluid overload, increase scrotal edema Continue with aggressive IV diuresis with IV Lasix 40 mg twice daily. Oxygen supplementation keeping saturation over 90%. Aggressive pulmonary toilet with incentive spirometry. Out of bed to chair. Disseminated blastomycosis/blastomycosis of DIRECTOR NURSING SERVICE: Appreciate outside hospital documentation. Urine blastomycosis antigen positive. Blastomycosis and CSF positive. It seems patient never received AmBisome. For now continue with itraconazole. Will consult ID for further recommendation. Patient will need to follow-up with infectious disease as an outpatient. Check HIV. Type 2 diabetes mellitus: Uncontrolled. A1c of 11.7. Continue with insulin sliding scale at low-dose protocol ACHS. Add Lantus 5 units nightly. Hypoglycemia protocol. Hypertension: Goal blood pressure less than 140/90 mmHg. Continue with Cardura at home dose for now. Will uptitrate as for goal blood pressure. Urinary tract infection Continue cefdinir to finish a 7-day course. Micrococcus species in blood culture -Likely contamination as in 1 out of 4 blood cultures Repeat blood cultures so far negative. Continue to follow. e Liver cirrhosis? -CT imaging showing cirrhosis of the liver Patient endorsing drinking alcohol in the past, normal ammonia levels. Dysphagia: Post tracheostomy and PEG tube placement. Secondary to respiratory failure 2/4?PEG tube placement. Advance diet as per speech evaluation. Elevated troponin: -Type I versus type II NSTEMI Patient not endorsing chest pain, EKG without ischemic or infarctive changes Hemoglobin around 7.9. Not on anticoagulation given anemia. Appreciate echocardiogram without regional wall motion abnormality. Holding off on anticoagulation for now. Will benefit with outpatient further ACS workup. Continue with home dose of aspirin. Will try to add low-dose beta-jossie. Stroke in the past with left-sided weakness Superficial venous thrombosis of right cephalic Short course of anticoagulation was completed 07/30 Right shoulder rotator cuff tear: Needs outpatient Ortho evaluation Aspiration done 07/06 no evidence of infection Depressed mood/anxiety: Continue Lexapro Goals of care discussed with the patient in front of his son: Patient is stating that this time if he goes into cardiac arrest arrest he does not want chest compressions defibrillation or intubation, in case of these events he does not want any aggressive intervention and want to pursue comfort care, this was discussed in detail with the patient while son was at the bedside SCDs for DVT prophylaxis, Lovenox relatively contraindicated given Hemoccult positive stools, acute anemia Protonix OPD prophylaxis Discharge plan: Will get physical therapy evaluation and follow-up. Patient is significantly deconditioned. Plan for discharge to home with home health versus SNF. PDMP PDMP Reviewed: Not Reviewed Attestations 2 Medical Necessity Statement*: Requires further hospitalization for management of anasarca, lower limb swelling, scrotal swelling in setting of diastolic heart failure, CKD requiring hemodialysis, anemia, disseminated blastomycosis while safe discharge planning is sought. Diagnoses Renal insufficiency N28.9 Hypoxemia R09.02 Anasarca R60.1 Congestive heart failure I50.9 Anemia D64.9 S/P percutaneous endoscopic gastrostomy (PEG) tube placement Z93.1 Blastomycosis of central nervous system B40.89 Fall W19.XXXA Head injury S09.90XA Dyspnea R06.00 Hyperkalemia E87.5 Liver cirrhosis K74.60 Thrombocytopenia D69.6 Physical deconditioning R53.81
[2024-08-10] MEDS: potassium chloride ER 20 mEq Tablet 40 MEQ PO (16:41)
[2024-08-10 16:50] LABS: Glucose Point of Care 295 mg/dL (70-110)
[2024-08-10 17:13] LABS: Reticulocyte % 5.1 % (0.5-2.0)
[2024-08-10 18:21] LABS: HIV 1 & 2 Antibody Non-Reactive (Non-Reactiv); HIV 1 & 2 Antigen Non-Reactive (Non-Reactiv)
[2024-08-10 18:21] LABS: Bilirubin Urine Negative (Negative); Blood Urine Negative (Negative); Glucose Urine UA 1+ (Normal); Ketones Urine Negative (Negative); Leukocyte Esterase Urine Negative (Negative); Nitrate Urine Negative (Negative); Protein Urine 1+ (Negative); Specific Gravity, Urine 1.011 (1.005-1.030); Urine Appearance Clear (CLEAR); Urine Color Yellow (Yellow); Urobilinogen Urine 0.2 mg/dL (Negative)
[2024-08-10 18:26] LABS: Add Urine Microscopic? YES; Bacteria Urine None Seen /hpf; Hyaline Casts Urine 7.42 /lpf; RBC Urine 0-2 /hpf (0-2); Squamous Epithelial Cell Urine 0-5 /hpf (0-5); WBC Urine 0-5 /hpf (0-5)
[2024-08-10 18:48] LABS: UA Slide Review UA Slide Review Perf
[2024-08-10 21:00] LABS: Glucose Point of Care 302 mg/dL (70-110)
[2024-08-10] MEDS: insulin glargine 100 units/1 mL 5 UNIT SUBCUT (21:07)
[2024-08-11] VITALS (13 sets, daily range): BP systolic 133–162; BP diastolic 66–78; PULSE 68–82; RESP 13–21; TEMP 36.3–36.8; O2SAT 91–98; BMI 38.5
[2024-08-11] MEDS: piperacillin-tazobactam 3.375 GM in sodium chloride 0.9% (plus) 50 ML IV ×3 (00:36→17:44)
[2024-08-11] MEDS: FUROsemide 10 mg/mL SDV 10mL 40 MG IVP (03:03)
[2024-08-11 04:49] LABS: Basophils % 0.5 %; Eosinophils # 0.1 10^3/uL (0.0-0.8); Eosinophils % 2.4 %; Hematocrit 25.6 % (37-53); Lymphocytes # 1.3 10^3/uL (0.8-4.8); Lymphocytes % 33.8 %; Mean Corpuscular HGB Conc 30.1 g/dL (30-55); Mean Corpuscular Hemoglobin 28.6 pg (27-33); Mean Corpuscular Volume 95.2 fl (82-101); Monocytes # 0.4 10^3/uL (0.2-0.9); Monocytes % 11.1 %; Neutrophils # 1.97 10^3/uL (1.8-7.7); Neutrophils % 51.9 %; Nucleated Red Blood Cells % 0 %; Platelet Count 146 10^3/cmm (157-399); Red Blood Count 2.69 10^6/uL (3.85-5.65); Red Cell Distribution Width 16.4 % (12.1-15.1); White Blood Count 3.79 10^3/uL (3.29-11.43)
[2024-08-11 05:15] LABS: Alanine Aminotransferase 12 U/L (0-41); Albumin Level 2.6 g/dL (3.5-5.2); Alkaline Phosphatase 218 U/L (40-130); Anion Gap 14.7 (5-19); Aspartate Amino Transferase 20 U/L (0-40); Blood Urea Nitrogen 57 mg/dL (6-20); Calcium 8.1 mg/dL (8.5-10.5); Carbon Dioxide 29 mmol/L (22-29); Chloride 99 mmol/L (98-107); Globulin 3.9 g/dL (1.3-4.6); Glucose 135 mg/dL (65-115); Osmolality Calculated 306 mOsm/kg (285-295); Potassium 3.7 mmol/L (3.5-5.1); Sodium 139 mmol/L (136-145); Total Bilirubin 0.4 mg/dL (0.15-1.2); Total Protein 6.5 g/dL (6.6-8.7)
[2024-08-11 05:16] LABS: Chol HDL Ratio 3.41 mg/dL (1.0-5.00); Cholesterol 126 mg/dL (0-200); HDL Cholesterol 37 mg/dL (60-100); LDL Cholesterol Calculated 68 mg/dL (50-129); Phosphorus 3.9 mg/dL (2.5-4.5); Triglycerides 104 mg/dL (0-150); VLDL Cholestrol Calculation 21 mg/dL (0-30)
[2024-08-11 05:42] LABS: Folate Level 6.3 ng/mL (4.5-32.2)
[2024-08-11 08:15] LABS: Glucose Point of Care 123 mg/dL (70-110)
[2024-08-11] MEDS: pantoprazole 40 mg SDV IVP ×2 (08:19→17:44)
[2024-08-11] MEDS: aspirin 81 mg EC Tablet PO (08:19)
[2024-08-11] MEDS: cefdinir 300 MG CAPSULE PO ×2 (08:19→17:44)
[2024-08-11] MEDS: doxazosin 4 mg Tablet PO (08:19)
[2024-08-11] MEDS: thiamine 100 mg Tablet PO (08:19)
[2024-08-11] MEDS: gabapentin 100 mg Capsule PO (08:19)
[2024-08-11] MEDS: escitalopram 10 mg Tablet 5 MG PO (08:20)
--- NOTE | 2024-08-11 10:50 | P.PN_ITS ---
Subjective 2 Subjective: The patient was seen and examined. The patient is swollen otherwise has no complaints no nausea vomiting diarrhea headaches itching cramps or shortness of breath. Medications: Reviewed: Yes Medication Review Details: Current Medications Acetaminophen (Acetaminophen 500 Mg Tablet) 500 mg PO Q4H PRN PRN Reason: fever Last Admin: 08/10/24 10:54 Dose: 500 mg Albuterol/Ipratropium (Ipratropium-Albuterol 3 Ml Neb) 3 ml INHALATION Q6H.RESP PRN PRN Reason: shortness of breath Aspirin (Aspirin 81 Mg Ec Tablet) 81 mg PO DAILY LEATHA Last Admin: 08/11/24 08:19 Dose: 81 mg Cefdinir (Cefdinir 300 Mg Capsule) 300 mg PO BID LEATHA; Protocol Last Admin: 08/11/24 08:19 Dose: 300 mg Doxazosin Mesylate (Doxazosin 4 Mg Tablet) 4 mg PO DAILY LEATHA Last Admin: 08/11/24 08:19 Dose: 4 mg Escitalopram Oxalate (Escitalopram 10 Mg Tablet) 5 mg PO DAILY LEATHA Last Admin: 08/11/24 08:20 Dose: 5 mg Furosemide (Furosemide 10 Mg/Ml Sdv 4ml) 40 mg IVP Q8H LEATHA Gabapentin (Gabapentin 100 Mg Capsule) 100 mg PO DAILY LEATHA Last Admin: 08/11/24 08:19 Dose: 100 mg Glucagon (Glucagon 1 Mg/Ml Kit 1 Ml) 1 mg IM ONCE PRN; Protocol PRN Reason: Adult Acute Hypoglycemia Nursing Prot. Dextrose (D5w) 500 mls @ 0 mls/hr IV ONCE PRN; Protocol PRN Reason: Adult Acute Hypoglycemia Prot Dextrose (D10w) 250 mls @ 1,000 mls/hr IV PRN PRN; Protocol PRN Reason: Adult Acute Hypoglycemia Nursing Protocol Dextrose (D10w) 125 mls @ 750 mls/hr IV PRN PRN PRN Reason: HYPOGLYCEMIA Piperacillin Sod/Tazobactam (Sod 3.375 gm/ Sodium Chloride) 50 mls @ 12.5 mls/hr IV Q8H LEATHA; Protocol Last Admin: 08/11/24 08:20 Dose: 12.5 mls/hr Albumin Human (Albumin) 12.5 gm in 50 mls @ 60 mls/hr IV PRN PRN PRN Reason: Hypotension and/or symptomatic Iron Sucrose 200 mg/ Sodium (Chloride) 110 mls @ 220 mls/hr IV Q24H [facility] Stop: 08/13/24 10:29 Last Infusion: 08/10/24 19:32 Dose: Infused Insulin Glargine (Insulin Glargine 100 Units/1 Ml) 5 unit SUBCUT BEDTIME [facility] Last Admin: 08/10/24 21:07 Dose: 5 unit Insulin Human Lispro (Insulin Lispro 100 Unit/1 Ml) 0 unit SUBCUT WM&BEDTIME LEATHA; Protocol Last Admin: 08/11/24 08:16 Dose: Not Given Itraconazole (Itraconazole 100 Mg Capsule) 200 mg PO Q12H [facility] Last Admin: 08/11/24 08:19 Dose: 200 mg Ondansetron HCl (Ondansetron 2 Mg/Ml Sdv 2 Ml) 4 mg IVP Q6H PRN PRN Reason: NAUSEA AND VOMITING Pantoprazole Sodium (Pantoprazole 40 Mg Sdv) 40 mg IVP BID [facility] Last Admin: 08/11/24 08:19 Dose: 40 mg Senna/Docusate Sodium (Sennosides-Docusate Tablet) 1 tab PO DAILY [facility] Last Admin: 08/11/24 07:42 Dose: Not Given Thiamine Mononitrate (Thiamine 100 Mg Tablet) 100 mg PO DAILY [facility] Last Admin: 08/11/24 08:19 Dose: 100 mg Vitals/I&O/Wt Last Vital Signs Temp 97.3 F L 08/11/24 08:00 Pulse 68 08/11/24 09:21 Resp 16 08/11/24 09:21 BP 154/78 08/11/24 08:00 Pulse Ox 94 08/11/24 09:21 O2 Del Method Room Air 08/11/24 09:21 O2 Flow Rate 2 08/10/24 11:43 08/10/24 08/11/24 08/11/24 22:59 06:59 14:59 Intake Total 350 / 900 620 / 1520 240 / 240 Output Total 900 / 900 650 / 1550 Balance -550 / 0 -30 / -30 240 / 240 Weight last 48 hrs Weight 115 kg Weight 115 kg Physical Exam 2 Narrative: obese man in bed, sitting up, comfortable VSS, afebrile heent- nc/at, eomi neck supple lungs clear heart + s1, s2 abdomen- soft +bs ext b/l edema2-3+ groin to legs neuro-awake and interactive, moves all extremities, oriented + femoral dialysis catheter + nielsen catheter Urinary Catheter Management: Nielsen: Cath Placed During This Visit: yes Reason for Continuing Indwelling Catheter: Accurate Measurement of Urinary Output in Critically Ill Patients Urinary Catheter Date of Insertion: 08/05/24 Urinary Catheter Time of Insertion: 04:40 Data 08/11/24 04:35 08/11/24 04:35 A&P Assessment and plan (1) REBECCA (acute kidney injury): 54 year old male who recently got discharged on 08/01 from [facility] after prolonged hospitalization. Patient is here s/p fall w/ edema, REBECCA, anemia, confusion 1. REBECCA- please get old cr values pt has hematuria, leukocytes and protein on u/a UPCR under 1 -MS improved -normal c3, c4. negative hepatitis panel -negative jeovanny, anca, anti-gbm -normal haptoglobin -no hydronephrosis on renal us -phos improved -check spep, sife, iron sat 12.9%, ferritin 156- give iv iron -will need a repeat SPEP and heme-onc outpt follow up Poorly defined band (possible M-spike) migrating in the gamma region. Consider serum immunofixation to rule out a monoclonal protein if -hold dialysis today- monitor for renal recovery on diuretics -if cr remains stable to improving then please remove his femoral dialysis catheter 2. anemia, and plts dropped to 126 -DIMITRIOS- start iv iron seen and examined w/ the aide of a nurse using A/V equipment =pt consented to telehealth and to Hemodialysis Plan as above PDMP PDMP Reviewed: Not Reviewed Attestations 2 Medical Necessity Statement*: rebecca, anasarca, Time Spent in Patient Care: 16 - 35 minutes (>than 50% of time sp ent in counselling and/or direct pt care on unit) . Coding Level of Care Code Acute Code for [facility] Diagnoses REBECCA (acute kidney injury) N17.9
[2024-08-11] MEDS: iron sucrose 200 MG in sodium chloride 0.9% (100 ml) 100 ML 220 MG IV (12:02)
[2024-08-11] MEDS: FUROsemide 10 mg/mL SDV 4mL 40 MG IVP ×2 (12:02→17:44)
[2024-08-11 12:13] LABS: Glucose Point of Care 204 mg/dL (70-110)
[2024-08-11] MEDS: insulin lispro 100 unit/1 mL SUBCUT ×3 (12:15→22:01)
[2024-08-11 13:14] LABS: Anti-Nuclear Antibody Screen NEGATIVE (NEGATIVE)
--- NOTE | 2024-08-11 15:11 | P.PN_ITS ---
Subjective 2 Subjective: Hospital course, labs appreciated. Patient seen laying comfortably in bed. On 2 L of oxygen supplementation. Awake and alert. States feeling better. Denies any nausea, vomiting, headache. Tolerating diet. Appreciate urine output. Not getting out of bed for now since admission. Hemodynamically stable and afebrile. Vitals/I&O/Wt Last Vital Signs Temp 97.3 F L 08/11/24 08:00 Pulse 76 08/11/24 14:00 Resp 15 08/11/24 14:00 BP 157/72 08/11/24 14:00 Pulse Ox 91 08/11/24 14:00 O2 Del Method Room Air 08/11/24 09:21 O2 Flow Rate 2 08/10/24 11:43 08/11/24 08/11/24 08/11/24 06:59 14:59 22:59 Intake Total 620 / 1520 600 / 600 Output Total 650 / 1550 Balance -30 / -30 600 / 600 Weight last 48 hrs Weight 115 kg Weight 115 kg Physical Exam 2 Const: COMMON NORMALS: no acute distress and patient oriented x3 GENERAL APPEARANCE: cooperative, comfortable and Edematous ORIENTATION/CONSCIOUSNESS: Yes awake, Yes oriented to person and Yes oriented to time Resp: COMMON NORMALS: normal respiratory effort, No retractions, No use of accessory muscles and clear to auscultation bilaterally AUSCULTATION: clear to auscultation bilaterally and crackles Cardio: COMMON NORMALS: regular rate, regular rhythm, S1 normal heart sound present and S2 normal heart sound present RATE: regular rate RHYTHM: r egular rhythm HEART SOUNDS: S1 normal heart sound present and S2 normal heart sound present GI: COMMON NORMALS: Normal to inspection, nondistended, normoactive bowel sounds present and non-tender Extremity: COMMON NORMALS: no clubbing, cyanosis or edema and no pedal edema NARRATIVE EXTREMITY EXAM: 1+ pitting edema, anasarca Neuro: COMMON NORMALS: patient oriented x3 SENSORIUM/ORIENTATION: Yes oriented to person and Yes oriented to time Psych: COMMON NORMALS: mental status grossly normal Skin: OTHER: Anasarca, scrotal edema Urinary Catheter Management: Jama: Cath Placed During This Visit: yes Reason for Continuing Indwelling Catheter: Accurate Measurement of Urinary Output in Critically Ill Patients Urinary Catheter Date of Insertion: 08/05/24 Urinary Catheter Time of Insertion: 04:40 Data 08/11/24 04:35 08/11/24 04:35 Micro: Microbiology 08/10/24 18:00 Bacterial Antigens - Final Urine Kidney A&P Assessment and plan (1) Renal insufficiency: (2) Hypoxemia: (3) Anasarca: (4) Congestive heart failure: (5) Anemia: (6) S/P percutaneous endoscopic gastrostomy (PEG) tube placement: (7) Blastomycosis of central nervous system: (8) Fall: (9) Head injury: (10) Dyspnea: (11) Hyperkalemia: (12) Liver cirrhosis: (13) Thrombocytopenia: (14) Physical deconditioning: Plan Prolonged hospitalization at outside facility where patient was intubated for angioedema, MRSA pneumonia, superimposed bacterial infection with underlying influenza he was treated for 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 with prolonged antimicrobial therapy including antibiotic and antifungal, suffered from dysphagia related to intubation requiring tracheostomy, PEG tube was placed, was recently discharged from the rehab 08/01, needing to establish care with PCP, general surgery, orthopedics presented to the hospital after sustaining a fall at home Generalized weakness and fatigue Likely secondary to acute renal failure, hypoxia, fluid overload, deconditioning Acute on chronic kidney disease: Nephrology on board. Post 2 sessions of dialysis. Monitor urine output. Currently improving. Dialysis as per nephrology team. Medical reconciliation done for nephrotoxic drugs. Acute to on chronic anemia: Baseline hemoglobin seems to be around 7-7.5. Most likely in setting of acute on chronic disease with kidney dysfunction. EGD 07/28: Showed gastritis, there was no comment on any signs of portal hypertension or esophageal varices 07/30 colonoscopy: Internal hemorrhoids, multiple polyps were removed Hold off on anticoagulant therapy Hemoccult stool positive Plan: Appreciate iron panel. Continue with IV iron supplementation. Check reticulocyte count. Continue Protonix, carafate Lower limb swelling: Complaining of increased swelling in the left lower limb. Complains of mild tenderness. Will check lower limb Dopplers. Did have superficial vein thrombosis of right cephalic on admission. Acute hypoxic respiratory failure: In setting of diastolic heart failure with baseline CKD. Anasarca, fluid overload, increase scrotal edema Continue with aggressive IV diuresis with IV Lasix 40 mg twice daily. Oxygen supplementation keeping saturation over 90%. Aggressive pulmonary toilet with incentive spirometry. Out of bed to chair. 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 Urine blastomycosis antigen positive. Blastomycosis and CSF positive. It seems patient never received AmBisome. For now continue with itraconazole. Will consult ID for further recommendation. Patient will need to follow-up with infectious disease as an outpatient. Check HIV. Type 2 diabetes mellitus: Uncontrolled. A1c of 11.7. Continue with insulin sliding scale at low-dose protocol ACHS. Add Lantus 5 units nightly. Hypoglycemia protocol. Hypertension: Goal blood pressure less than 140/90 mmHg. Continue with Cardura at home dose for now. Will uptitrate as for goal blood pressure. Urinary tract infection Continue cefdinir to finish a 7-day course. Micrococcus species in blood culture -Likely contamination as in 1 out of 4 blood cultures Repeat blood cultures so far negative. Continue to follow. e Liver cirrhosis? -CT imaging showing cirrhosis of the liver Patient endorsing drinking alcohol in the past, normal ammonia levels. Dysphagia: Post tracheostomy and PEG tube placement. Secondary to respiratory failure 2/4?PEG tube placement. Advance diet as per speech evaluation. Elevated troponin: -Type I versus type II NSTEMI Patient not endorsing chest pain, EKG without ischemic or infarctive changes Hemoglobin around 7.9. Not on anticoagulation given anemia. Appreciate echocardiogram without regional wall motion abnormality. Holding off on anticoagulation for now. Will benefit with outpatient further ACS workup. Continue with home dose of aspirin. Will try to add low-dose beta-jossie. Stroke in the past with left-sided weakness Superficial venous thrombosis of right cephalic Short course of anticoagulation was completed 07/30 Right shoulder rotator cuff tear: Needs outpatient Ortho evaluation Aspiration done 07/06 no evidence of infection Depressed mood/anxiety: Continue Lexapro Goals of care discussed with the patient in front of his son: Patient is stating that this time if he goes into cardiac arrest arrest he does not want chest compressions defibrillation or intubation, in case of these events he does not want any aggressive intervention and want to pursue comfort care, this was discussed in detail with the patient while son was at the bedside SCDs for DVT prophylaxis, Lovenox relatively contraindicated given Hemoccult positive stools, acute anemia Protonix OPD prophylaxis Discharge plan: Will get physical therapy evaluation and follow-up. Patient is significantly deconditioned. Plan for discharge to home with home health versus SNF. Plan for the day: Appropriate urine output. Holding off on dialysis. Appreciate nephrology recommendations. Renal function so far stable. Monitor electrolytes. If does not require dialysis for next 24 hours will discuss with nephrology regarding removal of femoral dialysis catheter. Increase Lasix to 40 mg Q8 hourly. Fluid restriction to less than 1500 cc. Scrotal support. Will discuss with Occupational Therapy regarding scrotal wraps. Advance diet as per speech evaluation. Out of bed to chair. Aggressive pulmonary toilet with incentive spirometry. Monitor blood pressures. Goal blood pressure less than 140/90 mmHg. Will consult ID for CONSUMER EXPERIENCE CONSULTANT blastomycosis. Continue with itraconazole 200 mg twice daily. Hemoglobin stable. Continue with IV Protonix twice daily. Transfer to [facility]. PDMP PDMP Reviewed: Not Reviewed Attestations 2 Medical Necessity Statement*: Requires further hospitalization for management of generalized anasarca, scrotal edema in setting of diastolic heart failure, CKD requiring temporary dialysis, uncontrolled type 2 diabetes mellitus Diagnoses Renal insufficiency N28.9 Hypoxemia R09.02 Anasarca R60.1 Congestive heart failure I50.9 Anemia D64.9 S/P percutaneous endoscopic gastrostomy (PEG) tube placement Z93.1 Blastomycosis of central nervous system B40.89 Fall W19.XXXA Head injury S09.90XA Dyspnea R06.00 Hyperkalemia E87.5 Liver cirrhosis K74.60 Thrombocytopenia D69.6 Physical deconditioning R53.81
[2024-08-11 17:00] LABS: Glucose Point of Care 236 mg/dL (70-110)
--- NOTE | 2024-08-11 17:26 | PM.CONSULT ---
Providers/Reason For Consult Consulting Physician/Specialty*: Alondra Lee MD / Infectious Disease Reason for Consult*: blastomycosis Requesting Physician: Renaldo Marvin MD Attending Physician: Renaldo Marvin MD History of Present Illness History of Present Illness Guido Whalen is a 54 year old male with a past medical history of hypertension hyperlipidemia, CKD diabetes mellitus, COPD obstructive sleep apnea who was recently admitted at an outside hospital ([facility] in [facility]). He had presented to the emergency room on June 09 and was diagnosed with MRSA and influenza pneumonia. He suffered from acute respiratory distress for which she needed to be intubated and mechanically ventilated. Due to prolonged respiratory failure and failure of extubation he then underwent a trach placement on June 19, 2024. Also underwent a PEG placement on June 30, 2024. His tracheostomy has subsequently been removed. He still has his PEG in place. His respiratory failure was thought to be related to MRSA pneumonia and superimposed influenza pneumonia. PHILIP was negative for vegetations. Right shoulder aspiration was performed without any convincing evidence of infection. MRI of the spine showed questionable osteomyelitis/discitis versus degenerative changes. He was evaluated by infectious disease and treated empirically for possible osteomyelitis. He had treatment with linezolid/vancomycin/micafungin, ceftaroline, daptomycin, ceftriaxone, cefepime and meropenem during the course of his admission. It appears eventually he completed 6 weeks of IV antibiotics. I am uncertain at this time which antibiotic combination was eventually chosen. As part of the evaluation he had positive Blastomyces antigen in urine. Per review of his discharge summary from acute rehab, CSF Blastomyces was positive . At this time since no other records are available apart from the discharge summary from acute rehab, I am uncertain if this refers to positive cultures or other molecular testing. He was treated as disseminated Blastomyces with itraconazole. Patient is uncertain if he ever had AmBisome and I do not find any record of it in the discharge summary. Patient was then discharged to inpatient rehab where he continued to make progress. Patient then elected to come live with family in [place] locally. He is currently admitted at [facility] since August 05, 2024, 4 days after discharge from [facility]. He was admitted for increasing fatigue, anasarca and then sustained a fall in the bathroom while taking a shower. He had a new oxygen requirement of 3 L/min.Additionally had serum potassium of 6.6, creatinine of 4.1.He has been started on hemodialysis on this current admission. A temporary HD catheter was placed on August 06, 2024. He has been alert awake and oriented Review of Systems General: Reports: 10 or more systems reviewed and unremarkable except in HPI and below Const: Denies: fever(s), chills or body aches Eyes: Denies: change in vision, blurry vision or photophobia ENMT: Reports: hoarseness; Denies: throat pain, enlarged tonsils, odynophagia or nasal congestion Card: Denies: chest pain, palpitations, irregular heart rhythm, edema, swelling of feet/ankles, lightheadedness, pre-syncope, dyspnea on exertion or orthopnea Resp: Denies: dyspnea, productive cough, non-productive cough, wheezing, stridor, pain on inspiration, change in phlegm color, hemoptysis or chest congestion GI: Denies: abdominal pain, nausea, vomiting, hematemesis, coffee ground emesis, dysphagia, heartburn, diarrhea, constipation, GI cramping, change in stool character, hematochezia or melena : Denies: flank pain, dysuria, urinary frequency, urinary urgency, urinary hesitancy or hematuria Musc: Denies: neck pain, back pain, extremity pain, joint swelling, joint warmth or deformity Neuro: Denies: headache(s), numbness in extremities, weakness in extremities, sensory changes, difficulty walking, frequent falls, dizziness, vertigo, behavioral changes, Slurred speech present or seizure-like activity Psych: Denies: anxiety, depression, suicidal ideation or homicidal ideation Endo: Denies: polyuria, polydipsia, tired all the time, cold intolerance or hot flashes Chavez/Lymph: Denies: easy bruising or easy bleeding Medications/Allergies Home Medications ?Medication ?Instructions ?Recorded ?Confirmed ?Last Taken ?Type albuterol sulfate 90 mcg/actuation 2 puff inhalation Q4H PRN 08/05/24 08/05/24 Unknown History aerosol inhaler Shortness Of Breath amlodipine 10 mg tablet 10 mg PO DAILY 08/05/24 08/05/24 08/04/24 History carvedilol 12.5 mg tablet 12.5 mg PO Q12H 0308/05/24 08/04/24 History cholecalciferol (vitamin D3) 1,250 50,000 mcg PO Q7D 08/05/24 08/05/24 Unknown History mcg (50,000 unit) capsule cyclobenzaprine 10 mg tablet 10 mg PO BID PRN Muscle Spasm 08/05/24 08/05/24 08/04/24 History dapagliflozin propanediol 10 mg 10 mg PO QAM 08/05/24 08/05/24 08/04/24 History tablet (Farxiga) diphenhydramine-zinc acetate 2 See Rx Instructions .Route .COMPLEX 08/05/24 08/05/24 Unknown History %-0.1 % topical cream doxazosin 8 mg tablet 8 mg PO DAILY 08/05/24 08/05/24 08/04/24 History escitalopram oxalate 5 mg tablet 5 mg PO DAILY 08/05/24 08/05/24 08/04/24 History ferrous sulfate 324 mg (65 mg 324 mg PO .QOD 08/05/24 08/05/24 Unknown History iron) tablet,delayed release furosemide 20 mg tablet 20 mg PO DAILY 08/05/24 08/05/24 08/04/24 History gabapentin 300 mg capsule 600 mg PO TID 08/05/24 08/05/24 08/04/24 History insulin glargine 100 unit/mL (3 10 unit SUBCUT BEDTIME 08/05/24 08/05/24 08/04/24 History mL) subcutaneous pen (Lantus Solostar U-100 Insulin) insulin lispro 100 unit/mL See Rx Instructions .Route .COMPLEX 08/05/24 08/05/24 08/04/24 History subcutaneous pen itraconazole 10 mg/mL oral solution 200 mg PO BID 08/05/24 08/05/24 08/04/24 History lidocaine 4 % topical patch See Rx Instructions .Route .COMPLEX 08/05/24 08/05/24 08/04/24 History loperamide 2 mg capsule 4 mg PO QID PRN Diarrhea 08/05/24 08/05/24 Unknown History melatonin 3 mg tablet 3 mg PO BEDTIME 08/05/24 08/05/24 08/04/24 History oxycodone 10 mg tablet 10 mg PO Q4H PRN Pain 08/05/24 08/05/24 Unknown History pantoprazole 40 mg tablet,delayed 40 mg PO BID 08/05/24 08/05/24 08/04/24 History release (Protonix) Allergies Allergy/AdvReac Type Severity Reaction Status Date / Time ketorolac Allergy ADR-Vomitin Verified 08/05/24 05:45 g Current Medications Generic Name Dose Route Start Last Admin Trade Name Cooperq PRN Reason Stop Dose Admin Acetaminophen 500 mg 08/05/24 03:32 08/10/24 10:54 Acetaminophen 500 Mg Tablet PO 500 mg Q4H PRN Administration fever Aspirin 81 mg 08/05/24 16:10 08/11/24 08:19 Aspirin 81 Mg Ec Tablet PO 81 mg DAILY LEATHA Administration Cefdinir 300 mg 08/09/24 18:00 08/11/24 08:19 Cefdinir 300 Mg Capsule PO 300 mg BID LEATHA Administration Protocol Doxazosin Mesylate 4 mg 08/10/24 09:00 08/11/24 08:19 Doxazosin 4 Mg Tablet PO 4 mg DAILY LEATHA Administration Escitalopram Oxalate 5 mg 08/06/24 09:00 08/11/24 08:20 Escitalopram 10 Mg Tablet PO 5 mg DAILY LEATHA Administration Furosemide 40 mg 08/11/24 10:00 08/11/24 12:02 Furosemide 10 Mg/Ml Sdv 4ml IVP 40 mg Q8H LEATHA Administration Gabapentin 100 mg 08/07/24 09:00 08/11/24 08:19 Gabapentin 100 Mg Capsule PO 100 mg DAILY LEATHA Administration Piperacillin Sod/Tazobactam 50 mls @ 12.5 mls/hr 08/06/24 09:00 08/11/24 08:20 Sod 3.375 gm/ Sodium Chloride IV 12.5 mls/hr Q8H LEATHA Administration Protocol Iron Sucrose 200 mg/ Sodium 110 mls @ 220 mls/hr 08/09/24 10:00 08/11/24 12:02 Chloride IV 08/13/24 10:29 220 mls/hr Q24H LEATHA Administration Insulin Glargine 5 unit 08/10/24 21:00 08/10/24 21:07 Insulin Glargine 100 Units/1 Ml SUBCUT 5 unit BEDTIME LEATHA Administration Insulin Human Lispro 0 unit 08/05/24 08:00 08/11/24 12:15 Insulin Lispro 100 Unit/1 Ml SUBCUT 4 unit WM&BEDTIME LEATHA Administration Protocol Itraconazole 200 mg 08/07/24 09:00 08/11/24 08:19 Itraconazole 100 Mg Capsule PO 200 mg Q12H LETAHA Administration Pantoprazole Sodium 40 mg 08/05/24 09:00 08/11/24 08:19 Pantoprazole 40 Mg Sdv IVP 40 mg BID LEATHA Administration Senna/Docusate Sodium 1 tab 08/05/24 09:00 08/11/24 07:42 Sennosides-Docusate Tablet PO Not Given DAILY LEATHA Thiamine Mononitrate 100 mg 08/05/24 09:00 08/11/24 08:19 Thiamine 100 Mg Tablet PO 100 mg DAILY LEATHA Administration PFSH Acute PFSH: Medical History CKD (chronic kidney disease) MRSA pneumonia Blastomycosis of central nervous system Anemia Surgical History S/P percutaneous endoscopic gastrostomy (PEG) tube placement Tracheostomy status Past medical history positive for prolonged hospitalization secondary to angioedema requiring intubation, followed by tracheostomy after prolonged intubation, PEG tube placement after prolonged n.p.o. 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 07/17 MRI lumbar spine chronic degenerative changes, he was given prolonged antibiotics for possible osteomyelitis 08/01: Follow-up MRI no evidence of osteomyelitis Antimicrobial therapy IV vancomycin: Did not tolerate He was given linezolid, ceftaroline meropenem, micafungin, daptomycin Prolonged IV meropenem 07/23 till 08/01 Itraconazole prolonged therapy 07/22-08/01 PICC line removed And sent to [facility] provided Patient was discharged on room air EGD: 07/28: Gastritis: Colonoscopy 07/30: Nonbleeding internal hemorrhoids: 3 to 5 mm small polyps removed large 20 mm polyp removed as well: Patient was asked to follow-up for colonoscopy within 3 years Diarrhea: C. difficile panel negative: Patient was given Imodium on as-needed basis Social History Smoking and tobacco/nicotine status: former use of tobacco/nicotine Alcohol intake: former Household members: family Housing: House Vitals/I&O/Wt Last Vital Signs Temp 97.3 F L 08/11/24 08:00 Pulse 82 08/11/24 16:00 Resp 17 08/11/24 16:00 BP 162/76 08/11/24 16:00 Pulse Ox 91 08/11/24 14:00 O2 Del Method Room Air 08/11/24 09:21 O2 Flow Rate 2 08/10/24 11:43 08/11/24 08/11/24 08/11/24 06:59 14:59 22:59 Intake Total 620 / 1520 600 / 600 Output Total 650 / 1550 Balance -30 / -30 600 / 600 Weight last 48 hrs Weight 115 kg Weight 115 kg Physical Exam Narrative: General: No acute distress, AO x3 HEENT: PERRLA, pupils bilaterally equal and reactive, pallors not present Chest: Normal vesicular breath sounds, no added sounds, equal good air entry bilaterally CVS: S1-S2 regular, no murmurs, no tachycardia, no gallops, no rubs Abdomen: Soft, nontender, no organomegaly, bowel sounds present Neuro: No focal deficits, no facial deformity, AO x3, power 5/5 in all limbs Urinary Catheter Management: Jama: Cath Placed During This Visit: yes Reason for Continuing Indwelling Catheter: Accurate Measurement of Urinary Output in Critically Ill Patients Urinary Catheter Date of Insertion: 08/05/24 Urinary Catheter Time of Insertion: 04:40 Data 08/12/24 06:29 08/12/24 15:55 Other Labs: Radiology Impressions Head CT 08/05/24 00:08 IMPRESSION: No acute intracranial abnormality. Chest/Abdomen/Pelvis CT 08/05/24 02:05 IMPRESSION: 1. Moderate right and small left pleural effusions 2. Dependent and compressive atelectasis in the lower lobes, more pronounced on the right 3. Generalized anasarca 4. Chronic findings as discussed above. IMPRESSION: 1. Generalized anasarca 2. Cirrhosis and a small amount of ascites Renal Ultrasound 08/05/24 08:27 IMPRESSION: Technically difficult study due to body habitus. Limited study. 1. No hydronephrosis in either kidney. 2. Bladder and aorta not visualized due to limitations 3. No visualized apparent renal mass but study is limited Pelvis X-Ray 08/06/24 09:28 Impression: Insertion of catheter ending in the region of the right common iliac vein. Chest X-Ray 08/12/24 00:32 IMPRESSION: Bibasilar atelectasis/infiltrate, increased on the right. Laboratory Results WBC 3.75 10^3/uL (3.29-11.43) 08/12/24 06:29 RBC 2.61 10^6/uL (3.85-5.65) L 08/12/24 06:29 Hgb 7.30 g/dL (11.27-16.99) L 08/12/24 06:29 Hct 24.1 % (37-53) L 08/12/24 06:29 MCV 92.3 fl (82-101) 08/12/24 06:29 MCH 28.0 pg (27-33) 08/12/24 06:29 MCHC 30.3 g/dL (30-55) 08/12/24 06:29 RDW 16.3 % (12.1-15.1) H 08/12/24 06:29 Plt Count 135 10^3/cmm (157-399) L 08/12/24 06:29 MPV 10.6 fL (7.4-10.4) H 08/12/24 06:29 Neut % (Auto) 48.3 % 08/12/24 06:29 Lymph % (Auto) 37.9 % 08/12/24 06:29 Simpson % (Auto) 10.9 % 08/12/24 06:29 Eos % (Auto) 2.1 % 08/12/24 06:29 Baso % (Auto) 0.5 % 08/12/24 06:29 Reticulocyte % (Auto) 5.1 % (0.5-2.0) H 08/10/24 05:07 Neut # (Auto) 1.81 10^3/uL (1.8-7.7) 08/12/24 06:29 Lymph # (Auto) 1.4 10^3/uL (0.8-4.8) 08/12/24 06:29 Simpson # (Auto) 0.4 10^3/uL (0.2-0.9) 08/12/24 06:29 Eos # (Auto) 0.1 10^3/uL (0.0-0.8) 08/12/24 06:29 Baso # (Auto) 0.0 10^3/uL (0.0-0.1) 08/12/24 06: Nucleated RBC % (auto) 0 % 08/12/24 06: Nucleated RBCs # 0.0 /100WBC 08/12/24 06:29 ESR 44 mm/hr (0-10) H 08/05/24 00:09 Haptoglobin 91.0 mg/L (30-200) 08/06/24 02:12 D-Dimer 2.86 ug/mLFEU (0-0.59) H 08/05/24 00:09 Specimen Type Arterial 08/05/24 00:01 Sample Site Radial, left 08/05/24 00:01 ABG pH 7.32 (7.35-7.45) L 08/05/24 00:01 ABG pCO2 45.2 mmHg (35-45) H 08/05/24 00:01 ABG pO2 77.6 mmHg (80.0-100.0) L 08/05/24 00:01 ABG HCO3 23.5 mmol/L (22-26) 08/05/24 00:01 ABG O2 Saturation 95.2 08/05/24 00:01 ABG Base Excess -2.5 mmol/L (-2.0-2.0) L 08/05/24 00:01 Rojas Test Pos 08/05/24 00:01 A-a O2 Gradient 1.9 mmHg (5-10) L 08/05/24 00:01 Hematocrit 25.2 % (42-52) L 08/05/24 00:01 Hgb O2 Saturation 91.4 % (95-100) L 08/05/24 00:01 Carboxyhemoglobin 2.5 %THgb (0.4-20.1) 08/05/24 00:01 Methemoglobin 1.4 % (0.4-1.5) 08/05/24 00:01 Total Hemoglobin 8.2 g/dL (14-18) L 08/05/24 00:01 Sodium 132.0 mmol/L (131-143) 08/05/24 00:01 Potassium 6.2 mmol/L (3.5-5.0) H 08/05/24 00:01 Glucose 224.0 mg/dL (70-115) H 08/05/24 00:01 Ionized Calcium 1.1 mmol/L (1.1-1.4) 08/05/24 00:01 O2 Delivery Device Nc 08/05/24 00:01 O2 Liters/Min 5.0 % 08/05/24 00:01 Group Sales Representative ID [email or web address] 08/05/24 00:01 Sodium 139 mmol/L (136-145) 08/12/24 15:55 Potassium 4.4 mmol/L (3.5-5.1) 08/12/24 15:55 Chloride 100 mmol/L (98-107) 08/12/24 15:55 Carbon Dioxide 24 mmol/L (22-29) 08/12/24 15:55 Anion Gap 19.4 (5-19) H 08/12/24 15:55 BUN 50 mg/dL (6-20) H 08/12/24 15:55 Creatinine 2.9 mg/dL (0.7-1.2) H 08/12/24 15:55 GFR Calculation 22.7 mL/min (90-130) L 08/12/24 15:55 Glucose 270 mg/dL (65-115) H 08/12/24 15:55 POC Glucose 292 mg/dL (70-110) H 08/12/24 16:29 Estimat Average Glucose 120 08/12/24 06:29 Hemoglobin A1c 5.8 % (4.0-6.0) 08/12/24 06:29 Serum Osmolality 311 mOsm/kg (278-305) H 08/05/24 00:09 Calculated Osmolality 311 mOsm/kg (285-295) H 08/12/24 15:55 Lactic Acid 1.2 mmol/L (0.5-2.2) 08/05/24 00:09 Uric Acid 10.7 mg/dL (3.4-7.0) H 08/12/24 06:29 Calcium 7.6 mg/dL (8.5-10.5) L 08/12/24 15:55 Phosphorus 3.9 mg/dL (2.5-4.5) 08/11/24 04:35 Magnesium 2.0 mg/dL (1.7-2.3) 08/12/24 06:29 Iron 28 ug/dL (59-158) L 08/08/24 05:24 TIBC 217 mcg/dl 08/08/24 05:24 % Saturation 12.9 % (20-50) L 08/08/24 05:24 Unsat Iron Binding 189 ug/dL (112-347) 08/08/24 05:24 Ferritin 156 ng/mL (30-400) 08/08/24 05:24 Total Bilirubin 0.3 mg/dL (0.15-1.2) 08/12/24 06:29 AST 18 U/L (0-40) 08/12/24 06:29 ALT 10 U/L (0-41) 08/12/24 06:29 Alkaline Phosphatase 194 U/L (40-130) H 08/12/24 06:29 Ammonia 34 umol/L (16-60) 08/05/24 06:26 Lactate Dehydrogenase 313 U/L (135-225) H 08/07/24 04:58 Creatine Kinase 232 U/L (39-308) 08/06/24 02:12 Troponin T Baseline 215 ng/L (0-15) H* 08/05/24 00:09 Troponin T 120 Minute 215.8 ng/L (0-15) H 08/05/24 02:15 Delta Troponin T 0.8 ABS# (0-10) 08/05/24 02:15 Troponin T Hi Sens 6Hr 201.9 ng/L (0-15) H 08/05/24 06:26 Troponin T Hi Sens 6Hr Delta -13.1 ng/L (0-12) L 08/05/24 06:26 C-Reactive Protein 91.1 mg/L (0.0-4.9) H 08/08/24 05:24 NT-Pro-B Natriuret Pep 6995 pg/mL (0-125) H 08/10/24 05:07 Total Protein 6.4 g/dL (6.6-8.7) L 08/12/24 06:29 Albumin 2.6 g/dL (3.5-5.2) L 08/12/24 06:29 Globulin 3.8 g/dL (1.3-4.6) 08/12/24 06:29 Thtak-6-Vlsumohtu 0.6 g/dL (0.2-0.3) H 08/06/24 09:56 Mpxqu-9-Egiozdgqj 0.9 g/dL (0.5-0.9) 08/06/24 09:56 Fkmd-6-Ihlrhadd 0.4 g/dL (0.4-0.6) 08/06/24 09:56 Jkrq-6-Cbniigpi 0.5 g/dL (0.2-0.5) 08/06/24 09:56 Gamma Globulins 1.6 g/dL (0.8-1.7) 08/06/24 09:56 Abnorm Protein Band 1 0.2 g/dL (NONE DETECTED) H 08/06/24 09:56 Triglycerides 104 mg/dL (0-150) 08/11/24 04:35 Cholesterol 126 mg/dL (0-200) 08/11/24 04:35 LDL Cholesterol, Calc 68 mg/dL (50-129) 08/11/24 04:35 Total VLDL Cholesterol 21 mg/dL (0-30) 08/11/24 04:35 HDL Cholesterol 37 mg/dL (60-100) L 08/11/24 04:35 Cholesterol/HDL Ratio 3.41 mg/dL (1.0-5.00) 08/11/24 04:35 Tumor Marker AFP 2.3 ng/mL (0-8.3) 08/05/24 02:15 Vitamin B12 1109 pg/mL (232-1245) 08/05/24 00:09 Folate 6.3 ng/mL (4.5-32.2) 08/11/24 04:35 Procalcitonin 0.15 ng/mL (0-0.5) 08/10/24 05:07 TSH 1.75 uIU/mL (0.27-4.20) 08/05/24 00:09 Urine Color Yellow (Yellow) 08/10/24 18:00 Urine Appearance Clear (CLEAR) 08/10/24 18:00 Urine pH 5.0 (5-7) 08/10/24 18:00 Ur Specific Bushnell 1.011 (1.005-1.030) 08/10/24 18:00 Urine Protein 1+ (Negative) A 08/10/24 18:00 Urine Glucose (UA) 1+ (Normal) H 08/10/24 18:00 Urine Ketones Negative (Negative) 08/10/24 18:00 Urine Blood Negative (Negative) 08/10/24 18:00 Urine Nitrate Negative (Negative) 08/10/24 18:00 Urine Bilirubin Negative (Negative) 08/10/24 18:00 Urine Urobilinogen 0.2 mg/dL (Negative) 08/10/24 18:00 Ur Leukocyte Esterase Negative (Negative) 08/10/24 18:00 Urine RBC 0-2 /hpf (0-2) 08/10/24 18:00 Urine WBC 0-5 /hpf (0-5) 08/10/24 18:00 Ur Squamous Epith Cells 0-5 /hpf (0-5) 08/10/24 18:00 Amorphous Sediment Not Reportable 08/10/24 18:00 Urine Bacteria None seen /hpf (NONE) 08/10/24 18:00 Hyaline Casts 7.42 /lpf 08/10/24 18:00 Fine Granular Casts 0-4 /lpf H 08/05/24 16:46 Urine Osmolality 345 mOsm/kg (50-1200) 08/05/24 12:30 Ur Random Sodium 10 mmol/L 08/05/24 12:30 Urine Creatinine 211 mg/dL (39-259) 08/05/24 12:30 Urine Total Protein 236.4 mg/dL (0.0-20.0) H 08/05/24 12:30 U Abnormal Prot Band 2 Not Reportable 08/06/24 09:56 U Abnormal Prot Band 3 Not Reportable 08/06/24 09:56 Urine Opiates Screen Negative ng/mL (Negative) 08/05/24 04:52 Ur Barbiturates Screen Negative ng/mL (Negative) 08/05/24 04:52 Ur Phencyclidine Scrn Negative ng/mL (Negative) 08/05/24 04:52 Ur Amphetamines Screen Negative ng/mL (Negative) 08/05/24 04:52 U Benzodiazepines Scrn Positive ng/mL (Negative) H 08/05/24 04:52 Urine Cocaine Screen Negative ng/mL (Negative) 08/05/24 04:52 U Marijuana (THC) Screen Positive ng/mL (Negative) H 08/05/24 04:52 Ethyl Alcohol < 10 mg/dL (0-10) 08/05/24 00:09 Pro Electrophoresis Int See note 08/06/24 09:56 Serum Immunofixation Normal pattern. 08/06/24 09:56 JULI Screen Negative (NEGATIVE) 08/06/24 09:56 ANCA Screen Negative (NEGATIVE) 08/06/24 09:56 ANCA Titer Not Reportable 08/06/24 09:56 Anti-ds DNA IgG Ab 2 IU/mL 08/06/24 09:56 Glomerular Base Mem IgG <1.0 AI 08/06/24 09:56 Complement C3 146 mg/dL (90-180) 08/06/24 02:12 Complement C4 34 mg/dL (10-40) 08/06/24 02:12 Free [place] Light Chains 118.4 mg/L (3.3-19.4) H 08/06/24 09:56 Free Lambda Light Chain 130.3 mg/L (5.7-26.3) H 08/06/24 09:56 Free [place]/Lambda Ratio 0.91 (0.26-1.65) 08/06/24 09:56 Hepatitis A IgM Ab Non-reactive (Nonreactive) 08/05/24 00:09 Hep Bs Antigen Non-reactive (Nonreactive) 08/06/24 02:12 Hep Bs Antibody < 3.5 (11.5-1000) L 08/06/24 02:12 Hep B Core Total Ab Non-reactive (Nonreactive) 08/05/24 00:09 Hepatitis C Antibody Non-reactive (Nonreactive) 08/06/24 02:12 HIV 1&2 Ab & HIV 1 Ag Non-reactive (Non-Reactiv) 08/10/24 05:07 HIV 1&2 Antibody Non-reactive (Non-Reactiv) 08/10/24 05:07 Influenza A (PCR) Negative (Negative) 08/05/24 00:09 Influenza Type B (PCR) Negative (Negative) 08/05/24 00:09 RSV (PCR) Negative (Negative) 08/05/24 00:09 SARS-CoV-2 (PCR) Negative (Negative) 08/05/24 00:09 Micro: Microbiology 08/06/24 15:30 Blood Culture - Final Blood NO GROWTH AFTER 5 DAYS 08/10/24 18:00 Bacterial Antigens - Final Urine Kidney NAME: Guido Whalen LOC: U U #: [id number] AGE/SX: 54/M ROOM: [facility] RE08/05/[address]: Renaldo Marvin MD : 1970 BED: 1 DIS: FAX #: STATUS: ADM IN TLOC: Spec #: [id number] Lg: 08/05/24 Status: COMP Req #: [id number] Recd: 08/05/[address]: Nimisha Gordon MD Src: Blood SpDesc: Ordered: Bcult Procedure Result Verified Site Blood Culture Final 08/09/24-1552 1 of 4 bottles positive direct gram stain: gram positive cocci in clusters identification by direct PCR WORKUP NOT INDICATED Organism 1 Micrococcus and related genera Growth 1 BOTTLE Gram Stain Charge Charge for Gram Stain CRITICAL RESULT YES/NO: YES CRITICAL CALLED BY: DARYL TO AND READ BACK BY: [place] DATE: 08/06/24 TIME: 0755 Blood Culture Preliminary (changed) 08/07/24-1608 1 of 4 bottles positive direct gram stain: gram positive cocci in clusters identification by direct PCR WORKUP NOT INDICATED Organism 1 Micrococcus and related genera Growth 1 BOTTLE Gram Stain Charge Charge for Gram Stain CRITICAL RESULT YES/NO: YES CRITICAL CALLED BY: DARYL TO AND READ BACK BY: [place] DATE: 08/06/24 TIME: 0755 Blood Culture Preliminary (changed) 08/06/24-0822 1 of 4 bottles positive direct gram stain gram positive cocci in clusters identification by direct PCR Organism 1 Micrococcus and related genera Growth 1 BOTTLE CRITICAL RESULT YES/NO: YES CRITICAL CALLED BY: DARYL TO AND READ BACK BY: [place] DATE: 08/06/24 TIME: 075 [facility] [address] [place] [id number] 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 Patient is currently on itraconazole 200 mg p.o. every 12 hours. Recommend to continue same dose. Per review of his discharge summary it appears patient was planned to be treated over the next 6 to 12 months. No urgent infectious disease intervention indicated at this time. Follow-up with infectious disease clinic in 1 month. 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 1 out of 4 bottles. Likely contamination. Subsequently clear cultures. He has received treatment with piperacillin/tazobactam earlier during the course of this admission. PDMP PDMP Reviewed: Not Reviewed Coding Level of Care Code Acute Code for [facility] Diagnoses Blastomycosis of central nervous system B40.89 Bacteremia R78.81
[2024-08-11 21:55] LABS: Glucose Point of Care 266 mg/dL (70-110)
[2024-08-11] MEDS: insulin glargine 100 units/1 mL 5 UNIT SUBCUT (22:01)
[2024-08-12] VITALS (16 sets, daily range): BP systolic 139–165; BP diastolic 67–77; PULSE 73–91; RESP 14–28; TEMP 36.7–37.1; O2SAT 89–98; BMI 38.3
[2024-08-12] MEDS: ipratropium-albuterol 3 mL Neb INHALATION ×2 (00:01→14:36)
--- NOTE | 2024-08-12 00:14 | ECG_ITS ---
[facility] Test Date: 2024-08-12 Pat Name: Guido Whalen Department: Room: ICU12 Gender: Male Application Penetration Tester: : 1970 Requested By: Hernan Simpson Order Number: [id number] Virgen MD: Mai Garcia M.D. Measurements Intervals [place] Rate: 91 P: 30 AR: 126 QRS: 25 QRSD: 108 T: 86 QT: 365 QTc: 449 Interpretive Statements SINUS RHYTHM NONSPECIFIC ST & T-WAVE ABNORMALITY Compared to ECG 08/06/2024 03:41:11 T-wave abnormality now present Intraventricular conduction delay no longer present Electronically Signed On 08-12-2024 22:08:01 CDT by Mai Garcia M.D. [email or web address]
--- NOTE | 2024-08-12 00:32 | XRR_ITS ---
PROCEDURE INFORMATION: Exam: XR Chest Exam date and time: 08/12/2024 12:39 AM Age: 54 years old Clinical indication: Chest wall pain; Additional info: Chest pain TECHNIQUE: Imaging protocol: Radiologic exam of the chest. Views: 1 view. COMPARISON: 1[place] [id number] 08/05/2024 2:25 AM 2. CR (CHEST, ) 08/05/2024 12:55 AM FINDINGS: Lungs: Bibasilar atelectasis/infiltrate, increased on the right. Pleural spaces: Unremarkable. No pleural effusion. No pneumothorax. Heart/Mediastinum: Unremarkable. No cardiomegaly. Bones/joints: Unremarkable. XR/XR chest 1V portable [id number] IMPRESSION: Bibasilar atelectasis/infiltrate, increased on the right.
[2024-08-12] MEDS: FUROsemide 10 mg/mL SDV 4mL 40 MG IVP ×2 (01:34→09:37)
[2024-08-12] MEDS: piperacillin-tazobactam 3.375 GM in sodium chloride 0.9% (plus) 50 ML IV ×2 (01:35→09:29)
[2024-08-12 06:37] LABS: Basophils % 0.5 %; Eosinophils # 0.1 10^3/uL (0.0-0.8); Eosinophils % 2.1 %; Hematocrit 24.1 % (37-53); Lymphocytes # 1.4 10^3/uL (0.8-4.8); Lymphocytes % 37.9 %; Mean Corpuscular HGB Conc 30.3 g/dL (30-55); Mean Corpuscular Volume 92.3 fl (82-101); Mean Platelet Volume 10.6 fL (7.4-10.4); Monocytes # 0.4 10^3/uL (0.2-0.9); Monocytes % 10.9 %; Neutrophils # 1.81 10^3/uL (1.8-7.7); Neutrophils % 48.3 %; Nucleated Red Blood Cells % 0 %; Platelet Count 135 10^3/cmm (157-399); Red Blood Count 2.61 10^6/uL (3.85-5.65); Red Cell Distribution Width 16.3 % (12.1-15.1); White Blood Count 3.75 10^3/uL (3.29-11.43)
[2024-08-12 07:00] LABS: Alanine Aminotransferase 10 U/L (0-41); Albumin Level 2.6 g/dL (3.5-5.2); Alkaline Phosphatase 194 U/L (40-130); Anion Gap 15.5 (5-19); Aspartate Amino Transferase 18 U/L (0-40); Blood Urea Nitrogen 52 mg/dL (6-20); Calcium 8.1 mg/dL (8.5-10.5); Carbon Dioxide 28 mmol/L (22-29); Chloride 98 mmol/L (98-107); Globulin 3.8 g/dL (1.3-4.6); Glomerular Filtration Rate 23.6 mL/min (90-130); Glucose 187 mg/dL (65-115); Osmolality Calculated 305 mOsm/kg (285-295); Potassium 3.5 mmol/L (3.5-5.1); Sodium 138 mmol/L (136-145); Total Bilirubin 0.3 mg/dL (0.15-1.2); Total Protein 6.4 g/dL (6.6-8.7)
--- NOTE | 2024-08-12 07:23 | PC.NURSE ---
0000- Patient complaining of increase shortness of breath and chest pain, ekg obtain, dr gonsalves notified, order for chest xray given.
[2024-08-12 08:25] LABS: Glucose Point of Care 193 mg/dL (70-110)
[2024-08-12] MEDS: insulin lispro 100 unit/1 mL SUBCUT ×4 (09:27→21:59)
[2024-08-12] MEDS: sennosides-docusate Tablet 1 TAB PO (09:28)
[2024-08-12] MEDS: cefdinir 300 MG CAPSULE PO ×2 (09:28→17:24)
[2024-08-12] MEDS: escitalopram 10 mg Tablet 5 MG PO (09:28)
[2024-08-12] MEDS: gabapentin 100 mg Capsule PO (09:28)
[2024-08-12] MEDS: thiamine 100 mg Tablet PO (09:28)
[2024-08-12] MEDS: aspirin 81 mg EC Tablet PO (09:28)
[2024-08-12] MEDS: doxazosin 4 mg Tablet PO (09:28)
[2024-08-12] MEDS: pantoprazole 40 mg SDV IVP ×2 (09:29→17:24)
--- NOTE | 2024-08-12 10:41 | PM.PN ---
Subjective Subjective: c/o edema. no n/v/f/c/finn/d. had SOB episode overnight Medications: Reviewed: Yes Medication Review Details: Current Medications Acetaminophen (Acetaminophen 500 Mg Tablet) 500 mg PO Q4H PRN PRN Reason: fever Last Admin: 08/10/24 10:54 Dose: 500 mg Albuterol/Ipratropium (Ipratropium-Albuterol 3 Ml Neb) 3 ml INHALATION Q6H.RESP PRN PRN Reason: shortness of breath Last Admin: 08/12/24 00:01 Dose: 3 ml Aspirin (Aspirin 81 Mg Ec Tablet) 81 mg PO DAILY [facility] Last Admin: 08/12/24 09:28 Dose: 81 mg Cefdinir (Cefdinir 300 Mg Capsule) 300 mg PO BID [facility]; Protocol Last Admin: 08/12/24 09:28 Dose: 300 mg Doxazosin Mesylate (Doxazosin 4 Mg Tablet) 4 mg PO DAILY [facility] Last Admin: 08/12/24 09:28 Dose: 4 mg Escitalopram Oxalate (Escitalopram 10 Mg Tablet) 5 mg PO DAILY [facility] Last Admin: 08/12/24 09:28 Dose: 5 mg Furosemide (Furosemide 10 Mg/Ml Sdv 4ml) 40 mg IVP Q8H [facility] Last Admin: 08/12/24 09:37 Dose: 40 mg Gabapentin (Gabapentin 100 Mg Capsule) 100 mg PO DAILY [facility] Last Admin: 08/12/24 09:28 Dose: 100 mg Glucagon (Glucagon 1 Mg/Ml Kit 1 Ml) 1 mg IM ONCE PRN; Protocol PRN Reason: Adult Acute Hypoglycemia Nursing Prot. Dextrose (D5w) 500 mls @ 0 mls/hr IV ONCE PRN; Protocol PRN Reason: Adult Acute Hypoglycemia Prot Dextrose (D10w) 250 mls @ 1,000 mls/hr IV PRN PRN; Protocol PRN Reason: Adult Acute Hypoglycemia Nursing Protocol Dextrose (D10w) 125 mls @ 750 mls/hr IV PRN PRN PRN Reason: HYPOGLYCEMIA Piperacillin Sod/Tazobactam (Sod 3.375 gm/ Sodium Chloride) 50 mls @ 12.5 mls/hr IV Q8H [facility]; Protocol Last Admin: 08/12/24 09:29 Dose: 12.5 mls/hr Albumin Human (Albumin) 12.5 gm in 50 mls @ 60 mls/hr IV PRN PRN PRN Reason: Hypotension and/or symptomatic Iron Sucrose 200 mg/ Sodium (Chloride) 110 mls @ 220 mls/hr IV Q24H [facility] Stop: 08/13/24 10:29 Last Infusion: 08/11/24 19:57 Dose: Infused Insulin Glargine (Insulin Glargine 100 Units/1 Ml) 5 unit SUBCUT BEDTIME [facility] Last Admin: 08/11/24 22:01 Dose: 5 unit Insulin Human Lispro (Insulin Lispro 100 Unit/1 Ml) 0 unit SUBCUT WM&BEDTIME [facility]; Protocol Last Admin: 08/12/24 09:27 Dose: 4 unit Itraconazole (Itraconazole 100 Mg Capsule) 200 mg PO Q12H [facility] Last Admin: 08/12/24 09:28 Dose: 200 mg Ondansetron HCl (Ondansetron 2 Mg/Ml Sdv 2 Ml) 4 mg IVP Q6H PRN PRN Reason: NAUSEA AND VOMITING Pantoprazole Sodium (Pantoprazole 40 Mg Sdv) 40 mg IVP BID [facility] Last Admin: 08/12/24 09:29 Dose: 40 mg Senna/Docusate Sodium (Sennosides-Docusate Tablet) 1 tab PO DAILY [facility] Last Admin: 08/12/24 09:28 Dose: 1 tab Thiamine Mononitrate (Thiamine 100 Mg Tablet) 100 mg PO DAILY [facility] Last Admin: 08/12/24 09:28 Dose: 100 mg Vitals/I&O/Wt Last Vital Signs Temp 98.0 F 08/12/24 08:00 Pulse 80 08/12/24 10:00 Resp 21 H 08/12/24 10:00 BP 159/74 08/12/24 10:00 Pulse Ox 90 08/12/24 10:00 O2 Del Method Nasal Cannula 08/12/24 00:01 O2 Flow Rate 2 08/12/24 00:01 08/11/24 08/12/24 08/12/24 22:59 06:59 14:59 Intake Total 880 / 1530 290 / 1820 240 / 240 Output Total 1475 / 1475 Balance 880 / 1530 -1185 / 345 240 / 240 Weight last 48 hrs Weight 114.5 kg Weight 115 kg Physical Exam Narrative: obese man in bed, sitting up, comfortable ++edema/ anasarca VSS, afebrile heent- nc/at, eomi neck supple lungs clear heart + s1, s2 abdomen- soft +bs ext b/l edema 2-3+ groin to legs neuro-awake and interactive, moves all extremities, oriented + femoral dialysis catheter + nielsen catheter Urinary Catheter Management: Nielsen: Cath Placed During This Visit: yes Reason for Continuing Indwelling Catheter: Accurate Measurement of Urinary Output in Critically Ill Patients Urinary Catheter Date of Insertion: 08/05/24 Urinary Catheter Time of Insertion: 04:40 Data 08/12/24 06:29 08/12/24 06:29 Micro: Microbiology 08/06/24 17:15 Blood Culture - Final Blood NO GROWTH AFTER 5 DAYS 08/06/24 15:30 Blood Culture - Final Blood NO GROWTH AFTER 5 DAYS 08/10/24 18:00 Bacterial Antigens - Final Urine Kidney A&P Assessment and plan (1) REBECCA (acute kidney injury): 54 year old male who recently got discharged on 08/01 from [facility] after prolonged hospitalization. Patient is here s/p fall w/ edema, REBECCA, anemia, confusion 1. REBECCA- pt has hematuria, leukocytes and protein on u/a UPCR under 1 -MS improved -normal c3, c4. negative hepatitis panel -negative jeovanny, anca, anti-gbm -normal haptoglobin -no hydronephrosis on renal us -phos improved -check spep, sife, iron sat 12.9%, ferritin 156- give iv iron -will need a repeat SPEP and heme-onc outpt follow up Poorly defined band (possible M-spike) migrating in the gamma region. Consider serum immunofixation to rule out a monoclonal protein if -please remove his femoral dialysis catheter 2. severe edema-cont furosemide. add metolazone fluid restrict replace k 3/ anemia, and plts dropped to 126 -DIMITRIOS- start iv iron -consider prbc tx seen and examined w/ the aide of a nurse using A/V equipment =pt consented to telehealth and to Hemodialysis Plan as above PDMP PDMP Reviewed: Not Reviewed Attestations Medical Necessity Statement*: edema, rebecca improving Time Spent in Patient Care: 16 - 35 minutes (>than 50% of time spent in counselling and/or direct pt care on unit). Coding Level of Care Code Acute Code for [facility] Diagnoses REBECCA (acute kidney injury) N17.9
[2024-08-12 11:11] LABS: Uric Acid 10.7 mg/dL (3.4-7.0)
[2024-08-12] MEDS: potassium chloride ER 20 mEq Tablet 40 MEQ PO (11:15)
[2024-08-12] MEDS: metOLazone 5 MG Tablet PO (11:16)
--- NOTE | 2024-08-12 11:38 | P.PN_ITS ---
Subjective 2 Subjective: Overnight patient did have mild difficulty in breathing and chest pain. Chest x-ray and EKG were done which were found to be normal. Today morning seen on 2 L saturating more than 92%. States feeling better. Denies any nausea, vomiting, headache. States feeling better after scrotal support and wrap. Vitals/I&O/Wt Last Vital Signs Temp 98.0 F 08/12/24 08:00 Pulse 85 08/12/24 10:00 Resp 18 08/12/24 10:00 BP 159/74 08/12/24 10:00 Pulse Ox 94 08/12/24 10:00 O2 Del Method Nasal Cannula 08/12/24 10:00 O2 Flow Rate 2 08/12/24 10:00 08/11/24 08/12/24 08/12/24 22:59 06:59 14:59 Intake Total 880 / 1530 290 / 1820 300 / 300 Output Total 1475 / 1475 Balance 880 / 1530 -1185 / 345 300 / 300 Weight last 48 hrs Weight 114.5 kg Weight 115 kg Physical Exam 2 Const: COMMON NORMALS: no acute distress and patient oriented x3 GENERAL APPEARANCE: cooperative, comfortable and Edematous ORIENTATION/CONSCIOUSNESS: Yes awake, Yes oriented to person and Yes oriented to time Resp: COMMON NORMALS: normal respiratory effort, No retractions, No use of accessory muscles and clear to auscultation bilaterally AUSCULTATION: clear to auscultation bilaterally and crackles Cardio: COMMON NORMALS: regular rate, regular rhythm, S1 normal heart sound present and S2 normal heart sound present RATE: regular rate RHYTHM: r egular rhythm HEART SOUNDS: S1 normal heart sound present and S2 normal heart sound present GI: COMMON NORMALS: Normal to inspection, nondistended, normoactive bowel sounds present and non-tender Extremity: COMMON NORMALS: no clubbing, cyanosis or edema and no pedal edema NARRATIVE EXTREMITY EXAM: 1+ pitting edema, anasarca Neuro: COMMON NORMALS: patient oriented x3 SENSORIUM/ORIENTATION: Yes oriented to person and Yes oriented to time Psych: COMMON NORMALS: mental status grossly normal Skin: OTHER: Anasarca, scrotal edema Urinary Catheter Management: Jama: Cath Placed During This Visit: yes Reason for Continuing Indwelling Catheter: Accurate Measurement of Urinary Output in Critically Ill Patients Urinary Catheter Date of Insertion: 08/05/24 Urinary Catheter Time of Insertion: 04:40 Data 08/12/24 06:29 08/12/24 06:29 Micro: Microbiology 08/06/24 17:15 Blood Culture - Final Blood NO GROWTH AFTER 5 DAYS 08/06/24 15:30 Blood Culture - Final Blood NO GROWTH AFTER 5 DAYS 08/10/24 18:00 Bacterial Antigens - Final Urine Kidney A&P Assessment and plan (1) Renal insufficiency: (2) Hypoxemia: (3) Anasarca: (4) Congestive heart failure: (5) Anemia: (6) S/P percutaneous endoscopic gastrostomy (PEG) tube placement: (7) Blastomycosis of central nervous system: (8) Fall: (9) Head injury: (10) Dyspnea: (11) Hyperkalemia: (12) Liver cirrhosis: (13) Thrombocytopenia: (14) Physical deconditioning: Plan Prolonged hospitalization at outside facility where patient was intubated for angioedema, MRSA pneumonia, superimposed bacterial infection with underlying influenza he was treated for 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 with prolonged antimicrobial therapy including antibiotic and antifungal, suffered from dysphagia related to intubation requiring tracheostomy, PEG tube was placed, was recently discharged from the rehab 08/01, needing to establish care with PCP, general surgery, orthopedics presented to the hospital after sustaining a fall at home Generalized weakness and fatigue Likely secondary to acute renal failure, hypoxia, fluid overload, deconditioning Acute on chronic kidney disease: Nephrology on board. Post 2 sessions of dialysis. Monitor urine output. Currently improving. Dialysis as per nephrology team. Medical reconciliation done for nephrotoxic drugs. Acute to on chronic anemia: Baseline hemoglobin seems to be around 7-7.5. Most likely in setting of acute on chronic disease with kidney dysfunction. EGD 07/28: Showed gastritis, there was no comment on any signs of portal hypertension or esophageal varices 07/30 colonoscopy: Internal hemorrhoids, multiple polyps were removed Hold off on anticoagulant therapy Hemoccult stool positive Plan: Appreciate iron panel. Continue with IV iron supplementation. Check reticulocyte count. Continue Protonix, carafate Lower limb swelling: Complaining of increased swelling in the left lower limb. Complains of mild tenderness. Will check lower limb Dopplers. Did have superficial vein thrombosis of right cephalic on admission. Acute hypoxic respiratory failure: In setting of diastolic heart failure with baseline CKD. Anasarca, fluid overload, increase scrotal edema Continue with aggressive IV diuresis with IV Lasix 40 mg twice daily. Oxygen supplementation keeping saturation over 90%. Aggressive pulmonary toilet with incentive spirometry. Out of bed to chair. 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 Urine blastomycosis antigen positive. Blastomycosis and CSF positive. It seems patient never received AmBisome. For now continue with itraconazole. Will consult ID for further recommendation. Patient will need to follow-up with infectious disease as an outpatient. Check HIV. Type 2 diabetes mellitus: Uncontrolled. A1c of 11.7. Continue with insulin sliding scale at low-dose protocol ACHS. Add Lantus 5 units nightly. Hypoglycemia protocol. Hypertension: Goal blood pressure less than 140/90 mmHg. Continue with Cardura at home dose for now. Will uptitrate as for goal blood pressure. Urinary tract infection Continue cefdinir to finish a 7-day course. Micrococcus species in blood culture -Likely contamination as in 1 out of 4 blood cultures Repeat blood cultures so far negative. Continue to follow. e Liver cirrhosis? -CT imaging showing cirrhosis of the liver Patient endorsing drinking alcohol in the past, normal ammonia levels. Dysphagia: Post tracheostomy and PEG tube placement. Secondary to respiratory failure 2/4?PEG tube placement. Advance diet as per speech evaluation. Elevated troponin: -Type I versus type II NSTEMI Patient not endorsing chest pain, EKG without ischemic or infarctive changes Hemoglobin around 7.9. Not on anticoagulation given anemia. Appreciate echocardiogram without regional wall motion abnormality. Holding off on anticoagulation for now. Will benefit with outpatient further ACS workup. Continue with home dose of aspirin. Will try to add low-dose beta-jossie. Stroke in the past with left-sided weakness Superficial venous thrombosis of right cephalic Short course of anticoagulation was completed 07/30 Right shoulder rotator cuff tear: Needs outpatient Ortho evaluation Aspiration done 07/06 no evidence of infection Depressed mood/anxiety: Continue Lexapro Goals of care discussed with the patient in front of his son: Patient is stating that this time if he goes into cardiac arrest arrest he does not want chest compressions defibrillation or intubation, in case of these events he does not want any aggressive intervention and want to pursue comfort care, this was discussed in detail with the patient while son was at the bedside SCDs for DVT prophylaxis, Lovenox relatively contraindicated given Hemoccult positive stools, acute anemia Protonix OPD prophylaxis Discharge plan: Will get physical therapy evaluation and follow-up. Patient is significantly deconditioned. Plan for discharge to home with home health versus SNF. Plan for the day: Urine output of around from 1500 cc in last 24 hours. Still net positive of around 300 cc. For now continue with Lasix every 8 hours. Will monitor urine output in next 6 to 7 hours and if needed will give a low-dose of metolazone. Repeat BMP in afternoon. Maintain Jama catheter. Continue with scrotal wraps. Scrotal support as needed. Out of bed to chair. Aggressive pulmonary toilet. Continue to work with physical therapy. Appreciate ID recommendations. Stable blood pressures. Repeat blood cultures negative. No concern for bacteremia. Continue Omnicef to finish a 5-day course. Stop Zosyn as patient has finished a 5-day course. Discharge plan: Discharge to home with home health as needed. Patient would need to have continued scrotal wraps as an outpatient. Will discuss about scrotal wraps at home with family versus as an outpatient with occupational therapy. Transfer to [facility]. PDMP PDMP Reviewed: Not Reviewed Attestations 2 Medical Necessity Statement*: Requires further hospitalization for management generalized anasarca, scrotal edema in a patient with history of CKD requiring temporary dialysis Diagnoses Renal insufficiency N28.9 Hypoxemia R09.02 Anasarca R60.1 Congestive heart failure I50.9 Anemia D64.9 S/P percutaneous endoscopic gastrostomy (PEG) tube placement Z93.1 Blastomycosis of central nervous system B40.89 Fall W19.XXXA Head injury S09.90XA Dyspnea R06.00 Hyperkalemia E87.5 Liver cirrhosis K74.60 Thrombocytopenia D69.6 Physical deconditioning R53.81
[2024-08-12 12:14] LABS: Estmated Average Glucose 120; Hemoglobin A1C 5.8 % (4.0-6.0)
[2024-08-12 12:40] LABS: Glucose Point of Care 236 mg/dL (70-110)
--- NOTE | 2024-08-12 15:05 | PC.NURSE ---
Patient c/o chest pain worse with palpation and inspiration. BP 167/78. Informed Dr Marvin and received order to give xanax 0.25mg PO x1
[2024-08-12] MEDS: ALPRAZolam 0.5 mg Tablet 0.25 MG PO (15:08)
[2024-08-12] MEDS: morphine 4 mg/mL SDV 1 mL 2 MG IVP ×2 (15:10→20:29)
[2024-08-12] MEDS: iron sucrose 200 MG in sodium chloride 0.9% (100 ml) 100 ML 220 MG IV (15:22)
[2024-08-12 16:40] LABS: Blood Urea Nitrogen 50 mg/dL (6-20); Calcium 7.6 mg/dL (8.5-10.5); Carbon Dioxide 24 mmol/L (22-29); Chloride 100 mmol/L (98-107); Glomerular Filtration Rate 22.7 mL/min (90-130); Glucose 270 mg/dL (65-115); Osmolality Calculated 311 mOsm/kg (285-295); Sodium 139 mmol/L (136-145)
[2024-08-12 16:44] LABS: Anion Gap 19.4 (5-19); Potassium 4.4 mmol/L (3.5-5.1)
[2024-08-12 16:49] LABS: Glucose Point of Care 292 mg/dL (70-110)
[2024-08-12] MEDS: FUROsemide 10 mg/mL SDV 10mL 60 MG IVP (17:24)
[2024-08-12 20:52] LABS: Glucose Point of Care 324 mg/dL (70-110)
[2024-08-12] MEDS: insulin glargine 100 units/1 mL 5 UNIT SUBCUT (21:58)
[2024-08-13] VITALS (13 sets, daily range): BP systolic 146–152; BP diastolic 67–81; PULSE 72–85; RESP 13–20; TEMP 36.6–37.1; O2SAT 90–97
[2024-08-13] MEDS: FUROsemide 10 mg/mL SDV 10mL 60 MG IVP ×2 (01:20→08:13)
[2024-08-13] MEDS: morphine 4 mg/mL SDV 1 mL 2 MG IVP ×4 (01:20→19:41)
[2024-08-13 03:44] LABS: Basophils % 0.5 %; Eosinophils # 0.1 10^3/uL (0.0-0.8); Hematocrit 24.9 % (37-53); Lymphocytes # 1.2 10^3/uL (0.8-4.8); Lymphocytes % 32.8 %; Mean Corpuscular HGB Conc 29.7 g/dL (30-55); Mean Corpuscular Hemoglobin 27.8 pg (27-33); Mean Corpuscular Volume 93.6 fl (82-101); Mean Platelet Volume 10.6 fL (7.4-10.4); Monocytes # 0.4 10^3/uL (0.2-0.9); Monocytes % 11.5 %; Neutrophils # 1.89 10^3/uL (1.8-7.7); Neutrophils % 51.7 %; Nucleated Red Blood Cells % 0 %; Platelet Count 143 10^3/cmm (157-399); Red Blood Count 2.66 10^6/uL (3.85-5.65); Red Cell Distribution Width 16.2 % (12.1-15.1); White Blood Count 3.66 10^3/uL (3.29-11.43)
[2024-08-13 04:01] LABS: Alanine Aminotransferase 10 U/L (0-41); Albumin Level 2.7 g/dL (3.5-5.2); Alkaline Phosphatase 184 U/L (40-130); Anion Gap 13.6 (5-19); Aspartate Amino Transferase 18 U/L (0-40); Blood Urea Nitrogen 51 mg/dL (6-20); Calcium 8.2 mg/dL (8.5-10.5); Carbon Dioxide 30 mmol/L (22-29); Chloride 100 mmol/L (98-107); Globulin 3.8 g/dL (1.3-4.6); Glomerular Filtration Rate 24.7 mL/min (90-130); Glucose 179 mg/dL (65-115); Magnesium 1.9 mg/dL (1.7-2.3); Osmolality Calculated 308 mOsm/kg (285-295); Phosphorus 3.9 mg/dL (2.5-4.5); Potassium 3.6 mmol/L (3.5-5.1); Sodium 140 mmol/L (136-145); Total Bilirubin 0.3 mg/dL (0.15-1.2); Total Protein 6.5 g/dL (6.6-8.7)
[2024-08-13 06:22] LABS: Glucose Point of Care 151 mg/dL (70-110)
[2024-08-13] MEDS: pantoprazole 40 mg SDV IVP ×2 (08:14→17:46)
[2024-08-13] MEDS: insulin lispro 100 unit/1 mL SUBCUT ×3 (08:14→21:25)
[2024-08-13] MEDS: escitalopram 10 mg Tablet 5 MG PO (08:14)
[2024-08-13] MEDS: aspirin 81 mg EC Tablet PO (08:14)
[2024-08-13] MEDS: metOLazone 5 MG Tablet PO (08:14)
[2024-08-13] MEDS: cefdinir 300 MG CAPSULE PO ×2 (08:14→17:46)
[2024-08-13] MEDS: thiamine 100 mg Tablet PO (08:15)
[2024-08-13] MEDS: gabapentin 100 mg Capsule PO (08:15)
--- NOTE | 2024-08-13 08:46 | PC.NURSE ---
First dose of bumex not given at this time. Patient received Lasix 6omg prior to order change. Dr Yon mendez.
--- NOTE | 2024-08-13 11:09 | PM.PN ---
Subjective Subjective: No acute vents overnight. Patient seen sitting comfortably in chair today. On room air. Working well with physical therapy. Improvement in scrotal size after scrotal wraps. Vitals/I&O/Wt Last Vital Signs Temp 98.0 F 08/13/24 10:57 Pulse 75 08/13/24 10:57 Resp 17 08/13/24 10:57 BP 146/67 08/13/24 10:57 Pulse Ox 93 08/13/24 10:57 O2 Del Method Room Air 08/13/24 10:57 O2 Flow Rate 2 08/12/24 10:00 08/12/24 08/13/24 08/13/24 22:59 06:59 14:59 Intake Total 1600 / 2310 480 / 480 Output Total 1400 / 2201 800 / 800 Balance 1599 / 1509 -1400 / 109 -320 / -320 Weight last 48 hrs Weight 116.392 kg Weight 114.5 kg Physical Exam Const: COMMON NORMALS: no acute distress and patient oriented x3 GENERAL APPEARANCE: cooperative, comfortable and Edematous ORIENTATION/CONSCIOUSNESS: Yes awake, Yes oriented to person and Yes oriented to time Resp: COMMON NORMALS: normal respiratory effort, No retractions, No use of accessory muscles and clear to auscultation bilaterally AUSCULTATION: clear to auscultation bilaterally and crackles Cardio: COMMON NORMALS: regular rate, regular rhythm, S1 normal heart sound present and S2 normal heart sound present RATE: regular rate RHYTHM: regular rhythm HEART SOUNDS: S1 normal heart sound present and S2 normal heart sound present GI: COMMON NORMALS: Normal to inspection, nondistended, normoactive bowel sounds present and non-tender Extremity: COMMON NORMALS: no clubbing, cyanosis or edema and no pedal edema NARRATIVE EXTREMITY EXAM: 1+ pitting edema, anasarca Neuro: COMMON NORMALS: patient oriented x3 SENSORIUM/ORIENTATION: Yes oriented to person and Yes oriented to time Psych: COMMON NORMALS: mental status grossly normal Skin: OTHER: Anasarca, scrotal edema Urinary Catheter Management: Jama: Cath Placed During This Visit: yes Reason for Continuing Indwelling Catheter: Accurate Measurement of Urinary Output in Critically Ill Patients Urinary Catheter Date of Insertion: 08/05/24 Urinary Catheter Time of Insertion: 04:40 Data 08/13/24 03:32 08/13/24 03:32 A&P Assessment and plan (1) Renal insufficiency: (2) Hypoxemia: (3) Anasarca: (4) Congestive heart failure: (5) Anemia: (6) S/P percutaneous endoscopic gastrostomy (PEG) tube placement: (7) Blastomycosis of central nervous system: (8) Fall: (9) Head injury: (10) Dyspnea: (11) Hyperkalemia: (12) Liver cirrhosis: (13) Thrombocytopenia: (14) Physical deconditioning: Plan Prolonged hospitalization at outside facility where patient was intubated for angioedema, MRSA pneumonia, superimposed bacterial infection with underlying influenza he was treated for 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 with prolonged antimicrobial therapy including antibiotic and antifungal, suffered from dysphagia related to intubation requiring tracheostomy, PEG tube was placed, was recently discharged from the rehab 08/01, needing to establish care with PCP, general surgery, orthopedics presented to the hospital after sustaining a fall at home Generalized weakness and fatigue Likely secondary to acute renal failure, hypoxia, fluid overload, deconditioning Acute on chronic kidney disease: Nephrology on board. Post 2 sessions of dialysis. Monitor urine output. Currently improving. Dialysis as per nephrology team. Medical reconciliation done for nephrotoxic drugs. Acute to on chronic anemia: Baseline hemoglobin seems to be around 7-7.5. Most likely in setting of acute on chronic disease with kidney dysfunction. EGD 07/28: Showed gastritis, there was no comment on any signs of portal hypertension or esophageal varices 07/30 colonoscopy: Internal hemorrhoids, multiple polyps were removed Hold off on anticoagulant therapy Hemoccult stool positive Plan: Appreciate iron panel. Continue with IV iron supplementation. Check reticulocyte count. Continue Protonix, carafate Lower limb swelling: Complaining of increased swelling in the left lower limb. Complains of mild tenderness. Will check lower limb Dopplers. Did have superficial vein thrombosis of right cephalic on admission. Acute hypoxic respiratory failure: In setting of acute on chronic diastolic heart failure with baseline CKD. Anasarca, fluid overload, increase scrotal edema Continue with aggressive IV diuresis with IV Lasix 40 mg twice daily. Oxygen supplementation keeping saturation over 90%. Aggressive pulmonary toilet with incentive spirometry. Out of bed to chair. Disseminated blastomycosis/blastomycosis of [employer]: Appreciate outside hospital documentation. Urine blastomycosis antigen positive. Blastomycosis and CSF positive. It seems patient never received AmBisome. For now continue with itraconazole. Will consult ID for further recommendation. Patient will need to follow-up with infectious disease as an outpatient. Check HIV. Type 2 diabetes mellitus: Uncontrolled. A1c of 11.7. Continue with insulin sliding scale at low-dose protocol ACHS. Add Lantus 5 units nightly. Hypoglycemia protocol. Hypertension: Goal blood pressure less than 140/90 mmHg. Continue with Cardura at home dose for now. Will uptitrate as for goal blood pressure. Urinary tract infection Continue cefdinir to finish a 7-day course. Micrococcus species in blood culture -Likely contamination as in 1 out of 4 blood cultures Repeat blood cultures so far negative. Continue to follow. e Liver cirrhosis? -CT imaging showing cirrhosis of the liver Patient endorsing drinking alcohol in the past, normal ammonia levels. Dysphagia: Post tracheostomy and PEG tube placement. Secondary to respiratory failure 2/4?PEG tube placement. Advance diet as per speech evaluation. Elevated troponin: -Type I versus type II NSTEMI Patient not endorsing chest pain, EKG without ischemic or infarctive changes Hemoglobin around 7.9. Not on anticoagulation given anemia. Appreciate echocardiogram without regional wall motion abnormality. Holding off on anticoagulation for now. Will benefit with outpatient further ACS workup. Continue with home dose of aspirin. Will try to add low-dose beta-jossie. Stroke in the past with left-sided weakness Superficial venous thrombosis of right cephalic Short course of anticoagulation was completed 07/30 Right shoulder rotator cuff tear: Needs outpatient Ortho evaluation Aspiration done 07/06 no evidence of infection Depressed mood/anxiety: Continue Lexapro Goals of care discussed with the patient in front of his son: Patient is stating that this time if he goes into cardiac arrest arrest he does not want chest compressions defibrillation or intubation, in case of these events he does not want any aggressive intervention and want to pursue comfort care, this was discussed in detail with the patient while son was at the bedside SCDs for DVT prophylaxis, Lovenox relatively contraindicated given Hemoccult positive stools, acute anemia Protonix OPD prophylaxis Discharge plan: Will get physical therapy evaluation and follow-up. Patient is significantly deconditioned. Plan for discharge to home with home health versus SNF. Plan for the day: Urine output stable. Urine output seem to have reached its peak and not improving further with increased IV diuresis. Will try to switch to oral Bumex 1 mg 3 times daily along with metolazone 5 mg oral daily for now. BMP stable. Repeat BMP in AM. Maintain Jama catheter. Continue with scrotal wraps and scrotal support. Out of bed to chair. Continue with physical therapy. Continue with Omnicef to finish a 5-day course. Finished course of antibiotics with IV Zosyn. Goal blood pressure less than 140/90 mmHg. Blood pressure slightly elevated. Will plan to start on low-dose amlodipine in next 24 hours. For discharge plan: Discharge to home with home health as needed. Patient would need to have continued scrotal wraps as an outpatient. Will discuss about scrotal wraps at home with family versus as an outpatient with occupational therapy. Transfer to [facility]. PDMP PDMP Reviewed: Not Reviewed Attestations Medical Necessity Statement*: Requires further hospitalization for management of generalized anasarca, scrotal swelling in setting of diastolic heart failure patient with history of CKD, temporary dialysis while safe discharge planning is sought. Diagnoses Renal insufficiency N28.9 Hypoxemia R09.02 Anasarca R60.1 Congestive heart failure I50.9 Anemia D64.9 S/P percutaneous endoscopic gastrostomy (PEG) tube placement Z93.1 Blastomycosis of central nervous system B40.89 Fall W19.XXXA Head injury S09.90XA Dyspnea R06.00 Hyperkalemia E87.5 Liver cirrhosis K74.60 Thrombocytopenia D69.6 Physical deconditioning R53.81
--- NOTE | 2024-08-13 11:23 | PM.PN ---
Subjective Subjective: Feels better lying in bed decrease edema decreased scrotal edema. Hemodialysis catheter removed. Patient is also PEG consulted Nielsen catheter. Denies nausea vomiting or diarrhea. Would like to go home soon. Medications: Reviewed: Yes Medication Review Details: Current Medications Acetaminophen (Acetaminophen 500 Mg Tablet) 500 mg PO Q4H PRN PRN Reason: fever Last Admin: 08/10/24 10:54 Dose: 500 mg Albuterol/Ipratropium (Ipratropium-Albuterol 3 Ml Neb) 3 ml INHALATION Q6H.RESP PRN PRN Reason: shortness of breath Last Admin: 08/12/24 14:36 Dose: 3 ml Aspirin (Aspirin 81 Mg Ec Tablet) 81 mg PO DAILY [facility] Last Admin: 08/13/24 08:14 Dose: 81 mg Bumetanide (Bumetanide 1 Mg Tablet) 1 mg PO TID [facility] Last Admin: 08/13/24 08:45 Dose: Not Given Cefdinir (Cefdinir 300 Mg Capsule) 300 mg PO BID [facility]; Protocol Stop: 08/14/24 17:59 Last Admin: 08/13/24 08:14 Dose: 300 mg Escitalopram Oxalate (Escitalopram 10 Mg Tablet) 5 mg PO DAILY [facility] Last Admin: 08/13/24 08:14 Dose: 5 mg Gabapentin (Gabapentin 100 Mg Capsule) 100 mg PO DAILY [facility] Last Admin: 08/13/24 08:15 Dose: 100 mg Glucagon (Glucagon 1 Mg/Ml Kit 1 Ml) 1 mg IM ONCE PRN; Protocol PRN Reason: Adult Acute Hypoglycemia Nursing Prot. Dextrose (D5w) 500 mls @ 0 mls/hr IV ONCE PRN; Protocol PRN Reason: Adult Acute Hypoglycemia Prot Dextrose (D10w) 250 mls @ 1,000 mls/hr IV PRN PRN; Protocol PRN Reason: Adult Acute Hypoglycemia Nursing Protocol Dextrose (D10w) 125 mls @ 750 mls/hr IV PRN PRN PRN Reason: HYPOGLYCEMIA Albumin Human (Albumin) 12.5 gm in 50 mls @ 60 mls/hr IV BID PRN PRN Reason: Hypotension and/or symptomatic Iron Sucrose 200 mg/ Sodium (Chloride) 110 mls @ 220 mls/hr IV Q24H [facility] Stop: 08/13/24 14:29 Last Infusion: 08/12/24 16:10 Dose: Infused Insulin Glargine (Insulin Glargine 100 Units/1 Ml) 5 unit SUBCUT BEDTIME [facility] Last Admin: 08/12/24 21:58 Dose: 5 unit Insulin Human Lispro (Insulin Lispro 100 Unit/1 Ml) 0 unit SUBCUT WM&BEDTIME [facility]; Protocol Last Admin: 08/13/24 08:14 Dose: 2 unit Itraconazole (Itraconazole 100 Mg Capsule) 200 mg PO Q12H [facility] Last Admin: 08/13/24 08:14 Dose: 200 mg Metolazone (Metolazone 5 Mg Tablet) 5 mg PO DAILY [facility] Last Admin: 08/13/24 08:14 Dose: 5 mg Morphine Sulfate (Morphine 4 Mg/Ml Sdv 1 Ml) 2 mg IVP Q4H PRN PRN Reason: SEVERE PAIN Last Admin: 08/13/24 08:24 Dose: 2 mg Ondansetron HCl (Ondansetron 2 Mg/Ml Sdv 2 Ml) 4 mg IVP Q6H PRN PRN Reason: NAUSEA AND VOMITING Pantoprazole Sodium (Pantoprazole 40 Mg Sdv) 40 mg IVP BID [facility] Last Admin: 08/13/24 08:14 Dose: 40 mg Senna/Docusate Sodium (Sennosides-Docusate Tablet) 1 tab PO DAILY [facility] Last Admin: 08/13/24 08:15 Dose: Not Given Thiamine Mononitrate (Thiamine 100 Mg Tablet) 100 mg PO DAILY [facility] Last Admin: 08/13/24 08:15 Dose: 100 mg Vitals/I&O/Wt Last Vital Signs Temp 98.0 F 08/13/24 10:57 Pulse 75 08/13/24 10:57 Resp 17 08/13/24 10:57 BP 146/67 08/13/24 10:57 Pulse Ox 93 08/13/24 10:57 O2 Del Method Room Air 08/13/24 10:57 O2 Flow Rate 2 08/12/24 10:00 08/12/24 08/13/24 08/13/24 22:59 06:59 14:59 Intake Total 1600 / 2310 480 / 480 Output Total 1400 / 2201 800 / 800 Balance 1599 / 1509 -1400 / 109 -320 / -320 Weight last 48 hrs Weight 116.392 kg Weight 114.5 kg Physical Exam Narrative: obese man in bed, sitting up, comfortable +edema/ anasarca VSS, afebrile heent- nc/at, eomi neck supple lungs -dull bases heart + s1, s2 +LEAH abdomen- soft +bs +PEG ext b/l edema 2+ groin to legs neuro-awake and interactive, moves all extremities, oriented + femoral dialysis catheter removed + nielsen catheter Urinary Catheter Management: Nielsen: Cath Placed During This Visit: yes Reason for Continuing Indwelling Catheter: Accurate Measurement of Urinary Output in Critically Ill Patients Urinary Catheter Date of Insertion: 08/05/24 Urinary Catheter Time of Insertion: 04:40 Data 08/13/24 03:32 08/13/24 03:32 A&P Assessment and plan (1) REBECCA (acute kidney injury): 54 year old male who recently got discharged on 08/01 from [facility] after prolonged hospitalization. Patient is here s/p fall w/ edema, REBECCA, anemia, confusion 1. REBECCA- pt has hematuria, leukocytes and protein on u/a UPCR under 1 -MS improved -normal c3, c4. negative hepatitis panel -negative jeovanny, anca, anti-gbm -normal haptoglobin -no hydronephrosis on renal us -phos improved -check spep, sife, iron sat 12.9%, ferritin 156- give iv iron -will need a repeat SPEP and heme-onc outpt follow up Poorly defined band (possible M-spike) migrating in the gamma region. Consider serum immunofixation to rule out a monoclonal protein if -please remove his femoral dialysis catheter 2. severe edema-cont diureesis fluid restrict replace k 3/ anemia, and plts dropped to 126 -DIMITRIOS- start iv iron -consider prbc tx -Per Dr. Huang. The patient had an endoscopy on July 28 showing gastritis no signs of portal hypertension esophageal varices. Patient a colonoscopy with multiple polyps and internal hemorrhoids. The patient is on IV iron. Disseminated blastomycosis/blastomycosis of [employer]: Appreciate outside hospital documentation. Urine blastomycosis antigen positive. Blastomycosis and CSF positive. It seems patient never received AmBisome. For now continue with itraconazole. Will consult ID for further recommendation. Patient will need to follow-up with infectious disease as an outpatient. Check HIV. I am concerned that this is from uncontrolled DM Type 2 diabetes mellitus: Uncontrolled. A1c of 11.7. seen and examined w/ the aide of a nurse using A/V equipment =pt consented to telehealth and to Hemodialysis Plan as above PDMP PDMP Reviewed: Not Reviewed Attestations Medical Necessity Statement*: edema, rebecca, dm Time Spent in Patient Care: 16 - 35 minutes Coding Level of Care Code Acute Code for Chg Fwd Diagnoses REBECCA (acute kidney injury) N17.9
[2024-08-13 11:32] LABS: Glucose Point of Care 126 mg/dL (70-110)
[2024-08-13] MEDS: potassium chloride ER 20 mEq Tablet 40 MEQ PO (12:33)
[2024-08-13] MEDS: iron sucrose 200 MG in sodium chloride 0.9% (100 ml) 100 ML 110 MG IV (14:48)
[2024-08-13 16:58] LABS: Glucose Point of Care 211 mg/dL (70-110)
[2024-08-13] MEDS: bumetanide 1 mg Tablet PO (17:46)
[2024-08-13 20:44] LABS: Glucose Point of Care 265 mg/dL (70-110)
[2024-08-13] MEDS: insulin glargine 100 units/1 mL 5 UNIT SUBCUT (21:25)
[2024-08-14] VITALS (7 sets, daily range): BP systolic 146–160; BP diastolic 69–87; PULSE 18–90; RESP 14–104; TEMP 36.2–37; O2SAT 76–95
[2024-08-14] MEDS: morphine 4 mg/mL SDV 1 mL 2 MG IVP (02:12)
[2024-08-14 05:46] LABS: Alanine Aminotransferase 11 U/L (0-41); Albumin Level 2.7 g/dL (3.5-5.2); Alkaline Phosphatase 183 U/L (40-130); Aspartate Amino Transferase 24 U/L (0-40); Blood Urea Nitrogen 46 mg/dL (6-20); Calcium 8.6 mg/dL (8.5-10.5); Carbon Dioxide 30 mmol/L (22-29); Chloride 102 mmol/L (98-107); Globulin 3.9 g/dL (1.3-4.6); Glomerular Filtration Rate 26.9 mL/min (90-130); Glucose 205 mg/dL (65-115); Magnesium 1.9 mg/dL (1.7-2.3); Osmolality Calculated 314 mOsm/kg (285-295); Phosphorus 3.5 mg/dL (2.5-4.5); Sodium 143 mmol/L (136-145); Total Bilirubin 0.3 mg/dL (0.15-1.2); Total Protein 6.6 g/dL (6.6-8.7)
[2024-08-14 06:22] LABS: Glucose Point of Care 186 mg/dL (70-110)
[2024-08-14] MEDS: cefdinir 300 MG CAPSULE PO (08:58)
[2024-08-14] MEDS: thiamine 100 mg Tablet PO (08:58)
[2024-08-14] MEDS: aspirin 81 mg EC Tablet PO (08:58)
[2024-08-14] MEDS: gabapentin 100 mg Capsule PO (08:59)
[2024-08-14] MEDS: bumetanide 1 mg Tablet PO (08:59)
[2024-08-14] MEDS: pantoprazole 40 mg SDV IVP (08:59)
[2024-08-14] MEDS: metOLazone 5 MG Tablet PO (08:59)
[2024-08-14] MEDS: sennosides-docusate Tablet 1 TAB PO (08:59)
[2024-08-14] MEDS: escitalopram 10 mg Tablet 5 MG PO (08:59)
--- NOTE | 2024-08-14 09:02 | PM.DCS ---
Discharge Providers Date of Admission: 08/05/24 03:06 Date of Discharge: August 14, 2024 Attending Provider at Admission: Hernan Simpson MD Attending Provider at Discharge: Renaldo Marvin MD Consults: Telemetry nephrology ID: Dr. Lee Diagnoses at Discharge Discharge Diagnosis (1) REBECCA (acute kidney injury): Status: Acute Reason for Visit Reason for Visit: Fell hit his head and cut r arm,confused,swelling Brief History: History as per HPI: Guido Whalen is a 54 year old male who recently got discharged on 08/01 from [facility] after prolonged hospitalization summary listed below presented after sustaining a fall at home. His son brought him to [place] to live with his family and establish care with PCP, orthopedics, neuro and general surgery. Patient is stating that he has no energy at all, he has not noticed any chest pain in last 2 to 3 days, no nausea, vomiting, he has not noticed any fever but endorsing generalized weakness fatigue lethargy worsening of swelling. Leg swelling has gotten worse, he does have swelling around his genitalia, today he presented to the hospital after sustaining a fall in the bathroom while taking a shower. He patient is stating that he just blacked out and fell. He did not experience any chest pain or seizure related activity. When he was discharged from the rehab he was not requiring oxygen, he has been trying to eat regular diet, son is trying to flush his PEG tube on daily basis, he does use a walker sometimes wheelchair for ambulation at home. Hospital Course Hospital Course Patient was admitted to the hospital for further evaluation and management of generalized weakness, fatigue, anasarca with concerns for acute on chronic CKD along with baseline acute on chronic anemia, dysphagia. It is believed her generalized weakness and fatigue is most likely because of physical deconditioning due to prolonged hospitalization, poor nutritional status along with worsening fluid status because of CKD and anasarca. He was started on IV diuretics. He had a poor response to diuretics hence nephrology was consulted. Given concerns for REBECCA, hyperkalemia along with metabolic acidosis temporary dialysis catheter was placed on 08/06 and he underwent hemodialysis. During hospitalization he underwent 2 sessions of dialysis overall. He responded well to the treatment and has not required any further dialysis after 08/06. His urine output has been improving and renal functions have remained stable. His blood cultures 1 out of 4 bottles from admission came back positive for micrococcus. Repeat blood cultures have remained negative. Micrococcus is thought to be a contaminant. He has finished a course of broad-spectrum IV antibiotics for UTI. He was found to have significant scrotal edema which was treated by IV diuresis along with scrotal wraps. Patient continued to work well with physical therapy. Diet was modified as per speech evaluation. He was continued on oral traconazole given recent diagnosis of PHOTOGRAPHIC SPOTTER blastomycosis. ID was consulted. Safe discharge planning were discussed in detail with the patient and patient's family. Decision was made to go home. Patient could not get occupational therapy as an outpatient due to high [id number] cost. Family was not comfortable in doing scrotal wraps by themselves. He has been advised to wear scrotal sling along with tight briefs. He was counseled about lifestyle modification in setting of CHF. He has been discharged in hemodynamically stable condition on oral Bumex 1 mg twice daily, metolazone 2.5 mg daily with advised to follow-up with his PCP within next 1 week. He will follow-up with infectious disease clinic on set appointment. He has been given a referral to follow-up with nephrology team as an outpatient. Physical Exam Const: COMMON NORMALS: no acute distress and patient oriented x3 GENERAL APPEARANCE: cooperative, comfortable and well developed ORIENTATION/CONSCIOUSNESS: Yes awake, Yes oriented to person and Yes oriented to time Resp: COMMON NORMALS: normal respiratory effort, No retractions, No use of accessory muscles and clear to auscultation bilaterally AUSCULTATION: clear to auscultation bilaterally and crackles Cardio: COMMON NORMALS: regular rate, regular rhythm, S1 normal heart sound present and S2 normal heart sound present RATE: regular rate RHYTHM: regular rhythm HEART SOUNDS: S1 normal heart sound present and S2 normal heart sound present GI: COMMON NORMALS: Normal to inspection, nondistended, normoactive bowel sounds present and non-tender Extremity: COMMON NORMALS: no clubbing, cyanosis or edema and no pedal edema NARRATIVE EXTREMITY EXAM: 1+ pitting edema, anasarca Neuro: COMMON NORMALS: patient oriented x3 SENSORIUM/ORIENTATION: Yes oriented to person and Yes oriented to time Psych: COMMON NORMALS: mental status grossly normal Skin: OTHER: Anasarca, scrotal edema improving. Urinary Catheter Management: Jama: Cath Placed During This Visit: yes Reason for Continuing Indwelling Catheter: Accurate Measurement of Urinary Output in Critically Ill Patients Urinary Catheter Date of Insertion: 08/05/24 Urinary Catheter Time of Insertion: 04:40 Discharge Data Studies Completed and Pending Completed Studies During Hospitalization Category Date Time Status CT chest abdomen pelvis [[place] [id number] Cat Scan 08/05/24 02:05 Completed ] Stat CT head wo con* [id number] Stat Cat Scan 08/05/24 00:08 Completed XR chest 1V portable [id number] Stat Exams 08/04/24 23:46 Completed XR chest 1V portable [id number] Stat Exams 08/12/24 00:32 Completed XR pelvis 1-2V* [id number] Stat Exams 08/06/24 09:28 [place] [id number] Routine Ultrasound 08/05/24 11:29 [place] [id number] Routine Ultrasound 08/10/24 11:04 Completed CV. echo complete* [id number] Routine Ultrasound 08/05/24 03:34 Completed US renal BI* [id number] Routine Ultrasound 08/05/24 08:27 Completed Pending at discharge Category Date Time Status Comprehensive Metabolic Panel AM LABS Lab 08/15/24 04:00 Ordered Comprehensive Metabolic Panel AM LABS Lab 08/15/24 04:00 Ordered Comprehensive Metabolic Panel AM LABS Lab 08/16/24 04:00 Ordered Magnesium AM LABS Lab 08/15/24 04:00 Ordered Magnesium AM LABS Lab 08/15/24 04:00 Ordered Magnesium AM LABS Lab 08/16/24 04:00 Ordered Phosphorus AM LABS Lab 08/15/24 04:00 Ordered Phosphorus AM LABS Lab 08/15/24 04:00 Ordered Phosphorus AM LABS Lab 08/16/24 04:00 Ordered Radiology Impressions Head CT 08/05/24 00:08 IMPRESSION: No acute intracranial abnormality. Chest/Abdomen/Pelvis CT 08/05/24 02:05 IMPRESSION: 1. Moderate right and small left pleural effusions 2. Dependent and compressive atelectasis in the lower lobes, more pronounced on the right 3. Generalized anasarca 4. Chronic findings as discussed above. IMPRESSION: 1. Generalized anasarca 2. Cirrhosis and a small amount of ascites Renal Ultrasound 08/05/24 08:27 IMPRESSION: Technically difficult study due to body habitus. Limited study. 1. No hydronephrosis in either kidney. 2. Bladder and aorta not visualized due to limitations 3. No visualized apparent renal mass but study is limited Pelvis X-Ray 08/06/24 09:28 Impression: Insertion of catheter ending in the region of the right common iliac vein. Chest X-Ray 08/12/24 00:32 IMPRESSION: Bibasilar atelectasis/infiltrate, increased on the right. Microbiology 08/06/24 17:15 Blood Blood Culture - Final NO GROWTH AFTER 5 DAYS 08/06/24 15:30 Blood Blood Culture - Final NO GROWTH AFTER 5 DAYS 08/10/24 18:00 Urine Kidney Bacterial Antigens - Final 08/05/24 00:09 Blood Blood Culture - Final NO GROWTH AFTER 5 DAYS 08/05/24 00:18 Blood Blood Culture - Final Micrococcus and related genera 08/08/24 14:27 Stool Routine Collection Occult Blood (FIT) - Final 08/05/24 16:46 Urine,Clean Catch Urine Culture - Final 08/05/24 04:52 Urine Catheterized Urine Culture - Final Laboratory Results WBC 3.66 10^3/uL (3.29-11.43) 08/13/24 03:32 RBC 2.66 10^6/uL (3.85-5.65) L 08/13/24 03:32 Hgb 7.40 g/dL (11.27-16.99) L 08/13/24 03:32 Hct 24.9 % (37-53) L 08/13/24 03:32 MCV 93.6 fl (82-101) 08/13/24 03:32 MCH 27.8 pg (27-33) 08/13/24 03:32 MCHC 29.7 g/dL (30-55) L 08/13/24 03:32 RDW 16.2 % (12.1-15.1) H 08/13/24 03:32 Plt Count 143 10^3/cmm (157-399) L 08/13/24 03:32 MPV 10.6 fL (7.4-10.4) H 08/13/24 03:32 Neut % (Auto) 51.7 % 08/13/24 03:32 Lymph % (Auto) 32.8 % 08/13/24 03:32 Barnes % (Auto) 11.5 % 08/13/24 03:32 Eos % (Auto) 3.0 % 08/13/24 03:32 Baso % (Auto) 0.5 % 08/13/24 03:32 Reticulocyte % (Auto) 5.1 % (0.5-2.0) H 08/10/24 05:07 Neut # (Auto) 1.89 10^3/uL (1.8-7.7) 08/13/24 03:32 Lymph # (Auto) 1.2 10^3/uL (0.8-4.8) 08/13/24 03:32 Barnes # (Auto) 0.4 10^3/uL (0.2-0.9) 08/13/24 03:32 Eos # (Auto) 0.1 10^3/uL (0.0-0.8) 08/13/24 03:32 Baso # (Auto) 0.0 10^3/uL (0.0-0.1) 08/13/24 03:32 Nucleated RBC % (auto) 0 % 08/13/24 03:32 Nucleated RBCs # 0.0 /100WBC 08/13/24 03:32 ESR 44 mm/hr (0-10) H 08/05/24 00:09 Haptoglobin 91.0 mg/L (30-200) 08/06/24 02:12 D-Dimer 2.86 ug/mLFEU (0-0.59) H 08/05/24 00:09 Specimen Type Arterial 08/05/24 00:01 Sample Site Radial, left 08/05/24 00:01 ABG pH 7.32 (7.35-7.45) L 08/05/24 00:01 ABG pCO2 45.2 mmHg (35-45) H 08/05/24 00:01 ABG pO2 77.6 mmHg (80.0-100.0) L 08/05/24 00:01 ABG HCO3 23.5 mmol/L (22-26) 08/05/24 00:01 ABG O2 Saturation 95.2 08/05/24 00:01 ABG Base Excess -2.5 mmol/L (-2.0-2.0) L 08/05/24 00:01 Rojas Test Pos 08/05/24 00:01 A-a O2 Gradient 1.9 mmHg (5-10) L 08/05/24 00:01 Hematocrit 25.2 % (42-52) L 08/05/24 00:01 Hgb O2 Saturation 91.4 % (95-100) L 08/05/24 00:01 Carboxyhemoglobin 2.5 %THgb (0.4-20.1) 08/05/24 00:01 Methemoglobin 1.4 % (0.4-1.5) 08/05/24 00:01 Total Hemoglobin 8.2 g/dL (14-18) L 08/05/24 00:01 Sodium 132.0 mmol/L (131-143) 08/05/24 00:01 Potassium 6.2 mmol/L (3.5-5.0) H 08/05/24 00:01 Glucose 224.0 mg/dL (70-115) H 08/05/24 00:01 Ionized Calcium 1.1 mmol/L (1.1-1.4) 08/05/24 00:01 O2 Delivery Device Nc 08/05/24 00:01 O2 Liters/Min 5.0 % 08/05/24 00:01 Microbiology Technician ID [email or web address] 08/05/24 00:01 Sodium 143 mmol/L (136-145) 08/14/24 04:56 Potassium 4.0 mmol/L (3.5-5.1) 08/14/24 04:56 Chloride 102 mmol/L (98-107) 08/14/24 04:56 Carbon Dioxide 30 mmol/L (22-29) H 08/14/24 04:56 Anion Gap 15.0 (5-19) 08/14/24 04:56 BUN 46 mg/dL (6-20) H 08/14/24 04:56 Creatinine 2.5 mg/dL (0.7-1.2) H 08/14/24 04:56 GFR Calculation 26.9 mL/min (90-130) L 08/14/24 04:56 Glucose 205 mg/dL (65-115) H 08/14/24 04:56 POC Glucose 186 mg/dL (70-110) H 08/14/24 06:15 Estimat Average Glucose 120 08/12/24 06:29 Hemoglobin A1c 5.8 % (4.0-6.0) 08/12/24 06:29 Serum Osmolality 311 mOsm/kg (278-305) H 08/05/24 00:09 Calculated Osmolality 314 mOsm/kg (285-295) H 08/14/24 04:56 Lactic Acid 1.2 mmol/L (0.5-2.2) 08/05/24 00:09 Uric Acid 10.7 mg/dL (3.4-7.0) H 08/12/24 06:29 Calcium 8.6 mg/dL (8.5-10.5) 08/14/24 04:56 Phosphorus 3.5 mg/dL (2.5-4.5) 08/14/24 04:56 Magnesium 1.9 mg/dL (1.7-2.3) 08/14/24 04:56 Iron 28 ug/dL (59-158) L 08/08/24 05:24 TIBC 217 mcg/dl 08/08/24 05:24 % Saturation 12.9 % (20-50) L 08/08/24 05:24 Unsat Iron Binding 189 ug/dL (112-347) 08/08/24 05:24 Ferritin 156 ng/mL (30-400) 08/08/24 05:24 Total Bilirubin 0.3 mg/dL (0.15-1.2) 08/14/24 04:56 AST 24 U/L (0-40) 08/14/24 04:56 ALT 11 U/L (0-41) 08/14/24 04:56 Alkaline Phosphatase 183 U/L (40-130) H 08/14/24 04:56 Ammonia 34 umol/L (16-60) 08/05/24 06:26 Lactate Dehydrogenase 313 U/L (135-225) H 08/07/24 04:58 Creatine Kinase 232 U/L (39-308) 08/06/24 02:12 Troponin T Baseline 215 ng/L (0-15) H* 08/05/24 00:09 Troponin T 120 Minute 215.8 ng/L (0-15) H 08/05/24 02:15 Delta Troponin T 0.8 ABS# (0-10) 08/05/24 02:15 Troponin T Hi Sens 6Hr 201.9 ng/L (0-15) H 08/05/24 06:26 Troponin T Hi Sens 6Hr Delta -13.1 ng/L (0-12) L 08/05/24 06:26 C-Reactive Protein 91.1 mg/L (0.0-4.9) H 08/08/24 05:24 NT-Pro-B Natriuret Pep 6995 pg/mL (0-125) H 08/10/24 05:07 Total Protein 6.6 g/dL (6.6-8.7) 08/14/24 04:56 Albumin 2.7 g/dL (3.5-5.2) L 08/14/24 04:56 Globulin 3.9 g/dL (1.3-4.6) 08/14/24 04:56 Mkdrz-0-Bqyfvoisd 0.6 g/dL (0.2-0.3) H 08/06/24 09:56 Wmlta-6-Vzbagpkph 0.9 g/dL (0.5-0.9) 08/06/24 09:56 Gvrk-2-Narrkecz 0.4 g/dL (0.4-0.6) 08/06/24 09:56 Glyx-7-Kkylwlxp 0.5 g/dL (0.2-0.5) 08/06/24 09:56 Gamma Globulins 1.6 g/dL (0.8-1.7) 08/06/24 09:56 Abnorm Protein Band 1 0.2 g/dL (NONE DETECTED) H 08/06/24 09:56 Triglycerides 104 mg/dL (0-150) 08/11/24 04:35 Cholesterol 126 mg/dL (0-200) 08/11/24 04:35 LDL Cholesterol, Calc 68 mg/dL (50-129) 08/11/24 04:35 Total VLDL Cholesterol 21 mg/dL (0-30) 08/11/24 04:35 HDL Cholesterol 37 mg/dL (60-100) L 08/11/24 04:35 Cholesterol/HDL Ratio 3.41 mg/dL (1.0-5.00) 08/11/24 04:35 Tumor Marker AFP 2.3 ng/mL (0-8.3) 08/05/24 02:15 Vitamin B12 1109 pg/mL (232-1245) 08/05/24 00:09 Folate 6.3 ng/mL (4.5-32.2) 08/11/24 04:35 Procalcitonin 0.15 ng/mL (0-0.5) 08/10/24 05:07 TSH 1.75 uIU/mL (0.27-4.20) 08/05/24 00:09 Urine Color Yellow (Yellow) 08/10/24 18:00 Urine Appearance Clear (CLEAR) 08/10/24 18:00 Urine pH 5.0 (5-7) 08/10/24 18:00 Ur Specific [place] 1.011 (1.005-1.030) 08/10/24 18:00 Urine Protein 1+ (Negative) A 08/10/24 18:00 Urine Glucose (UA) 1+ (Normal) H 08/10/24 18:00 Urine Ketones Negative (Negative) 08/10/24 18:00 Urine Blood Negative (Negative) 08/10/24 18:00 Urine Nitrate Negative (Negative) 08/10/24 18:00 Urine Bilirubin Negative (Negative) 08/10/24 18:00 Urine Urobilinogen 0.2 mg/dL (Negative) 08/10/24 18:00 Ur Leukocyte Esterase Negative (Negative) 08/10/24 18:00 Urine RBC 0-2 /hpf (0-2) 08/10/24 18:00 Urine WBC 0-5 /hpf (0-5) 08/10/24 18:00 Ur Squamous Epith Cells 0-5 /hpf (0-5) 08/10/24 18:00 Amorphous Sediment Not Reportable 08/10/24 18:00 Urine Bacteria None seen /hpf (NONE) 08/10/24 18:00 Hyaline Casts 7.42 /lpf 08/10/24 18:00 Fine Granular Casts 0-4 /lpf H 08/05/24 16:46 Urine Osmolality 345 mOsm/kg (50-1200) 08/05/24 12:30 Ur Random Sodium 10 mmol/L 08/05/24 12:30 Urine Creatinine 211 mg/dL (39-259) 08/05/24 12:30 Urine Total Protein 236.4 mg/dL (0.0-20.0) H 08/05/24 12:30 U Abnormal Prot Band 2 Not Reportable 08/06/24 09:56 U Abnormal Prot Band 3 Not Reportable 08/06/24 09:56 Urine Opiates Screen Negative ng/mL (Negative) 08/05/24 04:52 Ur Barbiturates Screen Negative ng/mL (Negative) 08/05/24 04:52 Ur Phencyclidine Scrn Negative ng/mL (Negative) 08/05/24 04:52 Ur Amphetamines Screen Negative ng/mL (Negative) 08/05/24 04:52 U Benzodiazepines Scrn Positive ng/mL (Negative) H 08/05/24 04:52 Urine Cocaine Screen Negative ng/mL (Negative) 08/05/24 04:52 U Marijuana (THC) Screen Positive ng/mL (Negative) H 08/05/24 04:52 Ethyl Alcohol < 10 mg/dL (0-10) 08/05/24 00:09 Pro Electrophoresis Int See note 08/06/24 09:56 Serum Immunofixation Normal pattern. 08/06/24 09:56 JULI Screen Negative (NEGATIVE) 08/06/24 09:56 ANCA Screen Negative (NEGATIVE) 08/06/24 09:56 ANCA Titer Not Reportable 08/06/24 09:56 Anti-ds DNA IgG Ab 2 IU/mL 08/06/24 09:56 Glomerular Base Mem IgG <1.0 AI 08/06/24 09:56 Complement C3 146 mg/dL (90-180) 08/06/24 02:12 Complement C4 34 mg/dL (10-40) 08/06/24 02:12 Free [place] Light Chains 118.4 mg/L (3.3-19.4) H 08/06/24 09:56 Free [place]ambda Light Chain 130.3 mg/L (5.7-26.3) H 08/06/24 09:56 Free [place]/Lambda Ratio 0.91 (0.26-1.65) 08/06/24 09:56 Hepatitis A IgM Ab Non-reactive (Nonreactive) 08/05/24 00:09 Hep Bs Antigen Non-reactive (Nonreactive) 08/06/24 02:12 Hep Bs Antibody < 3.5 (11.5-1000) L 08/06/24 02:12 Hep B Core Total Ab Non-reactive (Nonreactive) 08/05/24 00:09 Hepatitis C Antibody Non-reactive (Nonreactive) 08/06/24 02:12 HIV 1&2 Ab & HIV 1 Ag Non-reactive (Non-Reactiv) 08/10/24 05:07 HIV 1&2 Antibody Non-reactive (Non-Reactiv) 08/10/24 05:07 Influenza A (PCR) Negative (Negative) 08/05/24 00:09 Influenza Type B (PCR) Negative (Negative) 08/05/24 00:09 RSV (PCR) Negative (Negative) 08/05/24 00:09 SARS-CoV-2 (PCR) Negative (Negative) 08/05/24 00:09 Additional Data from Hospital Stay Summary of outside records: Past medical history positive for prolonged hospitalization secondary to angioedema requiring intubation, followed by tracheostomy after prolonged intubation, PEG tube placement after prolonged n.p.o. 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 Spirometer Acapella provided Patient was discharged on room air EGD: 07/28: Gastritis: Colonoscopy 07/30: Nonbleeding internal hemorrhoids: 3 to 5 mm small polyps removed large 20 mm polyp removed as well: Patient was asked to follow-up for colonoscopy within 3 years Diarrhea: C. difficile panel negative: Patient was given Imodium on as-needed basis Vitals Last Vital Signs Temp 97.8 F 08/14/24 07:30 Pulse 80 08/14/24 07:30 Resp 15 08/14/24 07:30 BP 152/81 08/14/24 07:30 Pulse Ox 92 08/14/24 07:30 O2 Del Method Room Air 08/14/24 07:30 O2 Flow Rate 2 08/12/24 10:00 Discharge Plan Discharge Patient Disposition: Home Condition: Stable Prescriptions: New gabapentin 100 mg Capsule 100 mg PO DAILY Qty: 30 0RF metolazone 5 mg Tablet 2.5 mg PO DAILY Qty: 30 0RF bumetanide 1 mg Tablet 1 mg PO BID Qty: 60 0RF Continued lidocaine 4 % Adhesive Patch,Medicated See Rx Instructions .ROUTE .COMPLEX Rx Instructions: Apply 2 patches topically on for 12 hours and remove for 12 hours to right shoulder and left low back. loperamide 2 mg Capsule 4 mg PO QID PRN (Reason: Diarrhea) itraconazole 10 mg/mL Solution 200 mg PO BID Rx Instructions: administer on an empty stomach melatonin 3 mg Tablet 3 mg PO BEDTIME diphenhydramine-zinc acetate 2-0.1 % Cream See Rx Instructions .ROUTE .COMPLEX Rx Instructions: 1 applic topically every 6 hours to leg rash with puritis, as needed. doxazosin 8 mg Tablet 8 mg PO DAILY pantoprazole [Protonix] 40 mg Tablet,Delayed Release (Dr/Ec) 40 mg PO BID albuterol sulfate 90 mcg/actuation Hfa Aerosol Inhaler 2 puff INHALATION Q4H PRN (Reason: Shortness Of Breath) insulin lispro 100 unit/mL Insulin Pen See Rx Instructions .ROUTE .COMPLEX Rx Instructions: Inject 4 unit subcutaneously 3 times daily before meals. Also take extra when bg is high as follows: 150-200= 2 extra units, 201-250=4 extra units, 251-300= 6 extra units, 301-350= 8 extra units, greater than 350=10 extra units. Max daily dos 42 units. escitalopram oxalate 5 mg Tablet 5 mg PO DAILY cholecalciferol (vitamin D3) 1,250 mcg (50,000 unit) Capsule 50,000 mcg PO Q7D ferrous sulfate 324 mg (65 mg iron) Tablet,Delayed Release (Dr/Ec) 324 mg PO .QOD insulin glargine [Lantus Solostar U-100 Insulin] 100 unit/mL (3 mL) Insulin Pen 10 unit SUBCUT BEDTIME oxycodone 10 mg Tablet 10 mg PO Q4H PRN (Reason: Pain) dapagliflozin propanediol [Farxiga] 10 mg Tablet 10 mg PO QAM Changed carvedilol 12.5 mg Tablet 6.25 mg PO Q12H Qty: 30 0RF Rx Instructions: must administer with a meal/food Discontinued cyclobenzaprine 10 mg Tablet 10 mg PO BID PRN (Reason: Muscle Spasm) amlodipine 10 mg Tablet 10 mg PO DAILY gabapentin 300 mg Capsule 600 mg PO TID furosemide 20 mg Tablet 20 mg PO DAILY Discharge Orders: Discharge Order (Routine); Ordered 08/14/24 Ordered By: Renaldo Marvin Referrals: [id number] [Provider Group] - 09/15/24 1:00 pm Dewayne Mujica [Referring] - (CKD stage III with anasarca) Corinne Nicholson FNP [Nurse Practitioner] - 08/17/24 1:00 pm Discharge Diet: Cardiac and Diabetic Discharge Activity: Resume usual activity and Increase activity as tolerated Patient Instructions: Heart Failure (DC), Dialysis Nutrition Plan (DC), Physical Activity for Older Adults (GEN), Opioid Safety Activity Restrictions/Additional Instructions: Dysphagia level 7 diet. Restrict fluid intake to less than 1500 cc, salt intake to less than 2 g daily. Advised to check his weight daily at home. Is advised that weight today would be the dry weight and if body weight increases by around 5 pounds, patient is to take an extra dose of Bumex daily till body weight comes down to weight today. If not able to come down to dry body weight in 1 week, then is to call primary care office for further recommendations. Patient was counseled in detail to take medications regularly as prescribed. Check your blood pressure daily at home maintain a blood pressure diary. Goal blood pressure is less than 140/90 mmHg. Follow-up with a primary care provider with a blood pressure diary for further recommendations or adjustment of antihypertensive. You should follow-up with nephrology as an outpatient. You will get a nephrology referral from your primary care's office. Follow-up with infectious disease office on 09/15 at 1 PM. Continue with the scrotal wraps going forward. If you are not able to arrange for scrotal wraps please make sure you are wearing tight briefs to help you with your scrotal swelling. Continue to increase your activity daily. Discharge Attestations Time Spent in Discharge Care*: greater than 30 min Specific Discharge Activities: educating patient, educating and/or supporting family/caregiver, discussing with pcp/other providers, discussing with onsite case manager/social workers/dc planners, documenting/other paperwork and evaluating patient/reviewing data Status at Discharge: Cognitive status at discharge: cognitively intact, Behavioral status at discharge: cooperative, Functional status at discharge: uses cane/walker, Overall status at discharge: patient is progressing back to baseline Quality Metrics Clinical Quality Measures [ No reported AMI, CVA or VTE this stay] Coding Level of Care Code 92122 Total time (in minutes) for Discharge: 80 Diagnoses REBECCA (acute kidney injury) N17.9
[2024-08-14] MEDS: insulin lispro 100 unit/1 mL SUBCUT (09:05)
--- NOTE | 2024-08-14 09:30 | P.PN_ITS ---
Subjective 2 Subjective: less swollen. feels better. wants to go home. no n/v/f/c/finn/d Medications: Reviewed: Yes Medication Review Details: Current Medications Acetaminophen (Acetaminophen 500 Mg Tablet) 500 mg PO Q4H PRN PRN Reason: fever Last Admin: 08/10/24 10:54 Dose: 500 mg Albuterol/Ipratropium (Ipratropium-Albuterol 3 Ml Neb) 3 ml INHALATION Q6H.RESP PRN PRN Reason: shortness of breath Last Admin: 08/12/24 14:36 Dose: 3 ml Aspirin (Aspirin 81 Mg Ec Tablet) 81 mg PO DAILY LEATHA Last Admin: 08/14/24 08:58 Dose: 81 mg Bumetanide (Bumetanide 1 Mg Tablet) 1 mg PO BID LEATHA Last Admin: 08/14/24 08:59 Dose: 1 mg Cefdinir (Cefdinir 300 Mg Capsule) 300 mg PO BID LEATHA; Protocol Stop: 08/14/24 17:59 Last Admin: 08/14/24 08:58 Dose: 300 mg Escitalopram Oxalate (Escitalopram 10 Mg Tablet) 5 mg PO DAILY LEATHA Last Admin: 08/14/24 08:59 Dose: 5 mg Gabapentin (Gabapentin 100 Mg Capsule) 100 mg PO DAILY LEATHA Last Admin: 08/14/24 08:59 Dose: 100 mg Glucagon (Glucagon 1 Mg/Ml Kit 1 Ml) 1 mg IM ONCE PRN; Protocol PRN Reason: Adult Acute Hypoglycemia Nursing Prot. Dextrose (D5w) 500 mls @ 0 mls/hr IV ONCE PRN; Protocol PRN Reason: Adult Acute Hypoglycemia Prot Dextrose (D10w) 250 mls @ 1,000 mls/hr IV PRN PRN; Protocol PRN Reason: Adult Acute Hypoglycemia Nursing Protocol Dextrose (D10w) 125 mls @ 750 mls/hr IV PRN PRN PRN Reason: HYPOGLYCEMIA Albumin Human (Albumin) 12.5 gm in 50 mls @ 60 mls/hr IV BID PRN PRN Reason: Hypotension and/or symptomatic Insulin Glargine (Insulin Glargine 100 Units/1 Ml) 5 unit SUBCUT BEDTIME LEATHA Last Admin: 08/13/24 21:25 Dose: 5 unit Insulin Human Lispro (Insulin Lispro 100 Unit/1 Ml) 0 unit SUBCUT WM&BEDTIME LEATHA; Protocol Last Admin: 08/14/24 09:05 Dose: 4 unit Itraconazole (Itraconazole 100 Mg Capsule) 200 mg PO Q12H [facility] Last Admin: 08/14/24 08:58 Dose: 200 mg Metolazone (Metolazone 5 Mg Tablet) 5 mg PO DAILY [facility] Last Admin: 08/14/24 08:59 Dose: 5 mg Morphine Sulfate (Morphine 4 Mg/Ml Sdv 1 Ml) 2 mg IVP Q4H PRN PRN Reason: SEVERE PAIN Last Admin: 08/14/24 02:12 Dose: 2 mg Ondansetron HCl (Ondansetron 2 Mg/Ml Sdv 2 Ml) 4 mg IVP Q6H PRN PRN Reason: NAUSEA AND VOMITING Pantoprazole Sodium (Pantoprazole 40 Mg Sdv) 40 mg IVP BID [facility] Last Admin: 08/14/24 08:59 Dose: 40 mg Senna/Docusate Sodium (Sennosides-Docusate Tablet) 1 tab PO DAILY [facility] Last Admin: 08/14/24 08:59 Dose: 1 tab Thiamine Mononitrate (Thiamine 100 Mg Tablet) 100 mg PO DAILY [facility] Last Admin: 08/14/24 08:58 Dose: 100 mg Vitals/I&O/Wt Last Vital Signs Temp 97.8 F 08/14/24 07:30 Pulse 87 08/14/24 09:08 Resp 18 08/14/24 09:08 BP 152/81 08/14/24 07:30 Pulse Ox 93 08/14/24 09:08 O2 Del Method Room Air 08/14/24 09:08 O2 Flow Rate 2 08/12/24 10:00 08/13/24 08/14/24 08/14/24 22:59 06:59 14:59 Intake Total 1040 / 1880 240 / 240 Output Total 2100 / 2900 Balance -1060 / -1020 240 / 240 Weight last 48 hrs Weight 115.53 kg Weight 116.392 kg Physical Exam 2 Narrative: obese man in bed, sitting up, comfortable +edema improving VSS, afebrile heent- nc/at, eomi neck supple lungs -dull bases heart + s1, s2 +LEAH abdomen- soft +bs +PEG ext b/l edema 2+ groin to legs neuro-awake and interactive, moves all extremities, oriented + femoral dialysis catheter removed + nielsen catheter Urinary Catheter Management: Nielsen: Cath Placed During This Visit: yes Reason for Continuing Indwelling Catheter: Accurate Measurement of Urinary Output in Critically Ill Patients Urinary Catheter Date of Insertion: 08/05/24 Urinary Catheter Time of Insertion: 04:40 Data 08/13/24 03:32 08/14/24 04:56 A&P Assessment and plan (1) REBECCA (acute kidney injury): 54 year old male who recently got discharged on 08/01 from [facility] after prolonged hospitalization. Patient is here s/p fall w/ edema, REBECCA, anemia, confusion 1. REBECCA- pt has hematuria, leukocytes and protein on u/a UPCR under 1 -MS improved -normal c3, c4. negative hepatitis panel -negative jeovanny, anca, anti-gbm -normal haptoglobin -no hydronephrosis on renal us -phos improved -check spep, sife, iron sat 12.9%, ferritin 156- give iv iron -will need a repeat SPEP and heme-onc outpt follow up Poorly defined band (possible M-spike) migrating in the gamma region. Consider serum immunofixation to rule out a monoclonal protein if -please remove his nielsen catheter 2. severe edema-cont diuresis fluid restrict replace k as needed 3/ anemia, plts are stable -consider prbc tx -Per Dr. Huang. The patient had an endoscopy on July 28 showing gastritis no signs of portal hypertension esophageal varices. Patient a colonoscopy with multiple polyps and internal hemorrhoids. The patient is on IV iron. 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 Urine blastomycosis antigen positive. Blastomycosis and CSF positive. It seems patient never received AmBisome. For now continue with itraconazole. Will consult ID for further recommendation. Patient will need to follow-up with infectious disease as an outpatient. Check HIV. I am concerned that this is from uncontrolled DM Type 2 diabetes mellitus: Uncontrolled. A1c of 11.7. seen and examined w/ the aide of a nurse using A/V equipment =pt consented to telehealth and to Hemodialysis Plan as above PDMP PDMP Reviewed: Not Reviewed Attestations 2 Medical Necessity Statement*: diuresis as needed Time Spent in Patient Care: 16 - 35 minutes (>than 50% of time sp ent in counselling and/or direct pt care on unit) . Coding Level of Care Code Acute Code for Chg Fwd Diagnoses REBECCA (acute kidney injury) N17.9
[2024-08-14 11:18] LABS: Glucose Point of Care 163 mg/dL (70-110)
== END 2024-08-14 16:00 | disposition home or self-care (01) | DRG 673 ==
LOC: ER 08-05 02:49 → ICU 08-05 05:26 → MEDSURG 08-05 15:42 → ICU 08-06 11:12 → CSU 08-12 11:35 → ICU 08-12 11:40 → CSU 08-12 12:52
PROVIDERS: Family Medicine; Internal Medicine Nephrology; Admitting Provider Internal Medicine; Emergency Provider Emergency Medicine; Visit Provider Student in an Organized Health Care Education/Training Program
DX: N17.9 Acute kidney failure, unspecified (principal); J96.21 Acute and chronic respiratory failure with hypoxia; I13.0 Hypertensive heart and chronic kidney disease with heart failure and stage 1 through stage 4 chronic kidney disease, or unspecified chronic kidney disease; I50.30 Unspecified diastolic (congestive) heart failure; E87.1 Hypo-osmolality and hyponatremia; B40.7 Disseminated blastomycosis; I69.954 Hemiplegia and hemiparesis following unspecified cerebrovascular disease affecting left non-dominant side; E11.22 Type 2 diabetes mellitus with diabetic chronic kidney disease; N18.30 Chronic kidney disease, stage 3 unspecified; S09.90XA Unspecified injury of head, initial encounter; W19.XXXA Unspecified fall, initial encounter; Y93.E1 Activity, personal bathing and showering; Y92.002 Bathroom of unspecified non-institutional (private) residence as the place of occurrence of the external cause; E87.5 Hyperkalemia; K74.60 Unspecified cirrhosis of liver; D64.9 Anemia, unspecified; M75.101 Unspecified rotator cuff tear or rupture of right shoulder, not specified as traumatic; F32.A Depression, unspecified; F41.9 Anxiety disorder, unspecified; L98.8 Other specified disorders of the skin and subcutaneous tissue; R79.89 Other specified abnormal findings of blood chemistry; Z87.891 Personal history of nicotine dependence; Z93.1 Gastrostomy status; Z79.4 Long term (current) use of insulin; Z86.0100 Personal history of colon polyps, unspecified
CPT/HCPCS: 36415; 36416; 51702; 70450; 71045; 71250; 72170; 74176; 76770; 80048; 80051; 80053; 80061; 80306; 80307; 81001; 82105; 82140; 82274; 82330; 82550; 82575; 82607; 82728; 82746; 82805; 82962; 83010; 83036; 83520; 83540; 83550; 83605; 83615; 83735; 83880; 83883; 83930; 83935; 84100; 84132; 84145; 84155; 84156; 84165; 84300; 84443; 84484; 84550; 85025; 85045; 85378; 85651; 86036; 86038; 86140; 86160; 86225; 86334; 86403; 86705; 86706; 86709; 86803; 87040; 87086; 87150; 87205; 87340; 87637; 87806; 90935; 92507; 92523; 92526; 92610; 93005; 93306; 93970; 94640; 94664; 96372; 96374; 96375; 96376; 97110; 97116; 97124; 97163; 97165; 97530; 97535; 99285; J0612; J1756; J1815; J1940; J2270; J2470; J2543; J7799; J9999; Q3014

== ENCOUNTER → 2024-08-17 13:50 | Outpatient (BNVA) | payer SELFPAY | PROVIDERS: PCP Nurse Practitioner; Visit Provider Nurse Practitioner | DX: I50.9 Heart failure, unspecified (principal); E11.9 Type 2 diabetes mellitus without complications; N18.9 Chronic kidney disease, unspecified; B40.89 Other forms of blastomycosis; R53.81 Other malaise; R26.9 Unspecified abnormalities of gait and mobility; N17.9 Acute kidney failure, unspecified; Z93.1 Gastrostomy status | CPT/HCPCS: 80053; 83880 ==

== ENCOUNTER 2024-08-20 19:18 | Emergency (ER) | payer SELFPAY ==
--- NOTE | 2024-08-20 19:21 | CTR_ITS ---
PROCEDURE INFORMATION: Exam: CT Head Without Contrast Exam date and time: 08/20/2024 7:44 PM Age: 54 years old Clinical indication: Injury or trauma; Fall; Blunt trauma (contusions or hematomas) and laceration; Without loss of consciousness; Without residual foreign body; Head, generalized; Additional info: Head injury TECHNIQUE: Imaging protocol: Computed tomography of the head without contrast. Radiation optimization: All CT scans at this facility use at least one of these dose optimization techniques: automated exposure control; mA and/or kV adjustment per patient size (includes targeted exams where dose is matched to clinical indication); or iterative reconstruction. COMPARISON: CT head wo con* [id number] 08/05/2024 12:50 AM RADIATION DOSE METRICS: Total DLP (mGy-cm): 1110.14 FINDINGS: Brain: No hemorrhage. No edema. Mild sequela of chronic small vessel ischemic disease. No mass effect. Cerebral ventricles: No ventriculomegaly. Paranasal sinuses: Visualized sinuses are unremarkable. No fluid levels. Mastoid air cells: Visualized mastoid air cells are well aerated. Bones: Unremarkable. No acute fracture. Soft tissues: Unremarkable. CT/CT head wo con* [id number] IMPRESSION: No acute intracranial abnormality.
--- NOTE | 2024-08-20 19:21 | XRR_ITS ---
PROCEDURE INFORMATION: Exam: XR Right Elbow Exam date and time: 08/20/2024 7:46 PM Age: 54 years old Clinical indication: Injury or trauma; Fall; Blunt trauma (contusions or hematomas); Elbow; Right TECHNIQUE: Imaging protocol: Radiologic exam of the right elbow. Views: 3 or more views. COMPARISON: No relevant prior studies available. FINDINGS: Bones/joints: Normal. Soft tissues: Normal. XR/XR elbow RT min 3V* [id number] IMPRESSION: No acute findings.
--- NOTE | 2024-08-20 19:22 | W.ED.FALL ---
HPI - Fall General: Chief Complaint: Fall Stated Complaint: Fall, Hit head Time Seen by Provider: 08/20/24 19:19 Source: patient and EMS Mode of arrival: EMS Limitations: no limitations History of Present Illness: 54-year-old male who states that he had fell backwards down the stairs he hit his right elbow along the back of his head he states he does have a headache denies any loss conscious denies any neck pain he has pain in his right elbow as well as along the small laceration denies pain elsewhere has been amatory. Associated symptoms-after fall: Reports headache(s); Denies abdominal pain, chest pain or neck pain Related Data Home Medications ?Medication ?Instructions ?Recorded ?Confirmed albuterol sulfate 90 mcg/actuation 2 puff inhalation Q4H PRN 08/05/24 08/17/24 aerosol inhaler Shortness Of Breath cholecalciferol (vitamin D3) 1,250 50,000 mcg PO Q7D 08/05/24 08/17/24 mcg (50,000 unit) capsule dapagliflozin propanediol 10 mg 10 mg PO QAM 08/05/24 08/17/24 tablet (Farxiga) diphenhydramine-zinc acetate 2 See Rx Instructions .Route .COMPLEX 08/05/24 08/17/24 %-0.1 % topical cream doxazosin 8 mg tablet 8 mg PO DAILY 08/05/24 08/17/24 escitalopram oxalate 5 mg tablet 5 mg PO DAILY 08/05/24 08/17/24 ferrous sulfate 324 mg (65 mg 324 mg PO .QOD 08/05/24 08/17/24 iron) tablet,delayed release insulin glargine 100 unit/mL (3 10 unit SUBCUT BEDTIME 08/05/24 08/17/24 mL) subcutaneous pen (Lantus Solostar U-100 Insulin) insulin lispro 100 unit/mL See Rx Instructions .Route .COMPLEX 08/05/24 08/17/24 subcutaneous pen itraconazole 10 mg/mL oral solution 200 mg PO BID 08/05/24 08/17/24 lidocaine 4 % topical patch See Rx Instructions .Route .COMPLEX 08/05/24 08/17/24 loperamide 2 mg capsule 4 mg PO QID PRN Diarrhea 08/05/24 08/17/24 melatonin 3 mg tablet 3 mg PO BEDTIME 08/05/24 08/17/24 oxycodone 10 mg tablet 10 mg PO Q4H PRN Pain 08/05/24 08/17/24 pantoprazole 40 mg tablet,delayed 40 mg PO BID 08/05/24 08/17/24 release (Protonix) Previous Rx's ?Medication ?Instructions ?Recorded bumetanide 1 mg tablet 1 mg PO BID #60 tabs 08/14/24 carvedilol 12.5 mg tablet 6.25 mg (1/2 x 12.5 mg) PO Q12H 08/14/24 #30 tabs gabapentin 100 mg capsule 100 mg PO DAILY #30 caps 08/14/24 metolazone 5 mg tablet 2.5 mg (1/2 x 5 mg) PO DAILY #30 08/14/24 tabs miscellaneous medical supply See Rx Instructions miscellaneous 08/17/24 .COMPLEX #1 ea Allergies Allergy/AdvReac Type Severity Reaction Status Date / Time ketorolac Allergy ADR-Vomitin Verified 08/17/24 13:09 g Review of Systems Const: Denies: fever(s), chills, body aches or change in appetite Eyes: Denies: blurry vision or eye discomfort ENMT: Denies: throat pain or dental pain Card: Denies: chest pain Resp: Denies: dyspnea GI: Denies: abdominal pain, nausea, vomiting or diarrhea Musc: Reports: extremity pain; Denies: neck pain or back pain Skin/Breast: Denies: rash Neuro: Reports: headache(s) [facility] PFSH: Medical History (Updated 08/20/24 @ 20:42 by Larry Bacon MD) CKD (chronic kidney disease) MRSA pneumonia Blastomycosis of central nervous system Anemia Surgical History (Updated 08/15/24 @ 00:00 by ROSAURA Liu) S/P percutaneous endoscopic gastrostomy (PEG) tube placement Tracheostomy status Past medical history positive for prolonged hospitalization secondary to angioedema requiring intubation, followed by tracheostomy after prolonged intubation, PEG tube placement after prolonged n.p.o. 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 07/17 MRI lumbar spine chronic degenerative changes, he was given prolonged antibiotics for possible osteomyelitis 08/01: Follow-up MRI no evidence of osteomyelitis Antimicrobial therapy IV vancomycin: Did not tolerate He was given linezolid, ceftaroline meropenem, micafungin, daptomycin Prolonged IV meropenem 07/23 till 08/01 Itraconazole prolonged therapy 07/22-08/01 [facility]ICC line [facility] was discharged on room air EGD: 07/28: Gastritis: Colonoscopy 07/30: Nonbleeding internal hemorrhoids: 3 to 5 mm small polyps removed large 20 mm polyp removed as well: Patient was asked to follow-up for colonoscopy within 3 years Diarrhea: C. difficile panel negative: Patient was given Imodium on as-needed basis Social History Smoking and tobacco/nicotine status: never used tobacco/nicotine Alcohol intake: former Household members: family Housing: House Physical Exam Const: COMMON NORMALS: no acute distress, patient oriented x3 and healthy appearing HENMT: COMMON NORMALS: normocephalic HEAD & SCALP: normocephalic OTHER: Hematoma to posterior scalp Eye: COMMON NORMALS: Equal, round and reactive pupils present and EOMs intact bilaterally PUPIL: Yes Equal, round and reactive pupils present Neck/C-Spine: COMMON NORMALS: full ROM and supple CERVICAL SPINE: Yes cervical ROM normal and No Cervical spine tenderness Chest: COMMONS NORMALS: normal inspection of the chest Resp: COMMON NORMALS: normal respiratory effort, No retractions, No use of accessory muscles and clear to auscultation bilaterally AUSCULTATION: clear to auscultation bilaterally Cardio: COMMON NORMALS: regular rate, regular rhythm and No murmurs present (Cardio) RATE: regular rate RHYTHM: regular rhythm GI: COMMON NORMALS: Normal to inspection, nondistended, normoactive bowel sounds present, Soft to palpation, non-tender and no masses PALPATION: Yes Soft to palpation Extremity: NARRATIVE EXTREMITY EXAM: Tenderness to right elbow 1 cm laceration noted Neuro: COMMON NORMALS: patient oriented x3, moves all extremities and no focal motor deficits Psych: COMMON NORMALS: mental status grossly normal, Normal thought process present and cooperative THOUGHT PROCESS: Normal thought process present Skin: COMMON NORMALS: no rashes or lesions noted and no wounds GENERAL SKIN EXAM: no rashes or lesions noted Procedures Laceration Laceration 1: Site: upper extremity Side (If applicable): left Size (cm): 2 Description: linear Depth: simple, single layer Pre-repair: wound explored and irrigated extensively Skin layer closed with: other (dermabond) Course Vital Signs: Vital signs: Vital Signs Temperature 98 F 08/20/24 19:24 Pulse Rate 71 08/20/24 20:12 Respiratory Rate 16 08/20/24 20:12 Blood Pressure 137/74 08/20/24 20:12 Pulse Oximetry 94 08/20/24 20:12 Oxygen Delivery Me thod Room Air 08/20/24 20:12 MDM - Fall Medical Decision Making Patient presents here with close head injury from a fall some elbow laceration that was repaired with Dermabond imaging here is negative he is stable for discharge follow-up PCP return if worsening. Medical Records I reviewed the patient's medical records. Lab Data Radiology Impressions Elbow X-Ray 08/20/24 19:21 IMPRESSION: No acute findings. Head CT 08/20/24 19:21 IMPRESSION: No acute intracranial abnormality. All radiology interpretation(s) finalized by discharge Discharge Plan Discharge Patient Disposition: Home Clinical Impression: Closed head injury, Laceration of elbow, right Condition: Stable Prescriptions: No Action miscellaneous medical supply Misc See Rx Instructions miscellaneous .COMPLEX Qty: 1 0RF Rx Instructions: Wheelchair to be used at home. lidocaine 4 % Adhesive Patch,Medicated See Rx Instructions .ROUTE .COMPLEX Rx Instructions: Apply 2 patches topically on for 12 hours and remove for 12 hours to right shoulder and left low back. loperamide 2 mg Capsule 4 mg PO QID PRN (Reason: Diarrhea) itraconazole 10 mg/mL Solution 200 mg PO BID Rx Instructions: administer on an empty stomach melatonin 3 mg Tablet 3 mg PO BEDTIME diphenhydramine-zinc acetate 2-0.1 % Cream See Rx Instructions .ROUTE .COMPLEX Rx Instructions: 1 applic topically every 6 hours to leg rash with puritis, as needed. doxazosin 8 mg Tablet 8 mg PO DAILY pantoprazole [Protonix] 40 mg Tablet,Delayed Release (Dr/Ec) 40 mg PO BID albuterol sulfate 90 mcg/actuation Hfa Aerosol Inhaler 2 puff INHALATION Q4H PRN (Reason: Shortness Of Breath) insulin lispro 100 unit/mL Insulin Pen See Rx Instructions .ROUTE .COMPLEX Rx Instructions: Inject 4 unit subcutaneously 3 times daily before meals. Also take extra when bg is high as follows: 150-200= 2 extra units, 201-250=4 extra units, 251-300= 6 extra units, 301-350= 8 extra units, greater than 350=10 extra units. Max daily dos 42 units. escitalopram oxalate 5 mg Tablet 5 mg PO DAILY cholecalciferol (vitamin D3) 1,250 mcg (50,000 unit) Capsule 50,000 mcg PO Q7D ferrous sulfate 324 mg (65 mg iron) Tablet,Delayed Release (Dr/Ec) 324 mg PO .QOD insulin glargine [Lantus Solostar U-100 Insulin] 100 unit/mL (3 mL) Insulin Pen 10 unit SUBCUT BEDTIME oxycodone 10 mg Tablet 10 mg PO Q4H PRN (Reason: Pain) dapagliflozin propanediol [Farxiga] 10 mg Tablet 10 mg PO QAM metolazone 5 mg Tablet 2.5 mg PO DAILY Qty: 30 0RF bumetanide 1 mg Tablet 1 mg PO BID Qty: 60 0RF gabapentin 100 mg Capsule 100 mg PO DAILY Qty: 30 0RF carvedilol 12.5 mg Tablet 6.25 mg PO Q12H Qty: 30 0RF Rx Instructions: must administer with a meal/food Discharge Orders: Discharge ED (Routine); Ordered 08/20/24 Ordered By: Larry Bacon Referrals: Corinne Nicholson FNP [Primary Care Provider] - Discharge Diet: Advance as tolerated Discharge Activity: Resume usual activity Patient Instructions: Laceration (ED), Head Injury (ED), Skin Adhesive Care (ED) Print Language: German Coding Level of Care Code ED Foot Piece Assembler for Josesito Puente
[2024-08-20 19:24] VITALS: BP 131/77; PULSE 111; RESP 20; TEMP 36.6; O2SAT 93; BMI 25.7
[2024-08-20 20:12] VITALS: BP 137/74; PULSE 71; RESP 16; O2SAT 94
[2024-08-20 21:12] VITALS: BP 141/70; PULSE 76; RESP 16; O2SAT 92
== END 2024-08-20 21:23 | disposition home or self-care (01) ==
PROVIDERS: Emergency Provider Emergency Medicine; PCP Nurse Practitioner
DX: S09.8XXA Other specified injuries of head, initial encounter (principal); S51.011A Laceration without foreign body of right elbow, initial encounter; Z79.4 Long term (current) use of insulin; N18.9 Chronic kidney disease, unspecified; W10.9XXA Fall (on) (from) unspecified stairs and steps, initial encounter
CPT/HCPCS: 12001; 70450; 73080; 99284

== ENCOUNTER → 2024-08-26 13:55 | Outpatient (BNVA) | payer MEDICAID, SELFPAY | PROVIDERS: PCP Nurse Practitioner; Visit Provider Surgery | DX: K74.60 Unspecified cirrhosis of liver (principal); Z93.1 Gastrostomy status | CPT/HCPCS: 99204 ==

== ENCOUNTER → 2024-09-07 14:13 | Outpatient (BNVA) | payer BC, MEDICAID, SELFPAY | PROVIDERS: PCP Nurse Practitioner; Visit Provider Nurse Practitioner | DX: F32.A Depression, unspecified (principal); I50.9 Heart failure, unspecified; E11.9 Type 2 diabetes mellitus without complications; Z79.899 Other long term (current) drug therapy | CPT/HCPCS: 80053; 83880 ==

== ENCOUNTER 2024-09-15 14:33 | Observation (INO) | payer BC, MEDICAID, SELFPAY ==
[2024-09-15] VITALS (8 sets, daily range): BP systolic 113–171; BP diastolic 59–79; PULSE 53–64; RESP 17–20; TEMP 36.3–36.6; O2SAT 92–96; BMI 38.9
--- NOTE | 2024-09-15 16:16 | XRR_ITS ---
PROCEDURE INFORMATION: Exam: XR Chest Exam date and time: 09/15/2024 4:20 PM Age: 54 years old Clinical indication: Shortness of breath; Additional info: SOB TECHNIQUE: Imaging protocol: Radiologic exam of the chest. Views: 1 view. COMPARISON: CR (CHEST, ) 08/12/2024 12:39 AM FINDINGS: Lungs: Patchy opacities in the bilateral lobes concerning for multifocal infiltrates. No suspicious pulmonary nodules. Pleural spaces: Blunting of the costophrenic angles bilaterally suggestive effusions. No pneumothorax. Heart/Mediastinum: Heart size normal limits. Pulmonary vascular congestion. Bones/joints: Unremarkable. XR/XR chest 1V portable [id number] IMPRESSION: 1. Patchy opacities in the bilateral lobes concerning for multifocal infiltrates. 2. Blunting of the costophrenic angles bilaterally suggestive effusions.
--- NOTE | 2024-09-15 16:17 | ECG_ITS ---
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 Measurements Intervals [place] Rate: 61 P: 54 NV: 144 QRS: 59 QRSD: 114 T: -9 QT: 440 QTc: 446 Interpretive Statements SINUS RHYTHM MODERATE INTRAVENTRICULAR CONDUCTION DELAY [110+ ms QRS DURATION] NONSPECIFIC T-WAVE ABNORMALITY Compared to ECG 08/12/2024 00:25:30 Intraventricular conduction delay now present T-wave abnormality still present Electronically Signed On 09-15-2024 21:17:57 CDT by Mai Garcia M.D. [email or web address]
--- NOTE | 2024-09-15 17:15 | USR_ITS ---
PROCEDURE INFORMATION: Exam: US Scrotum Exam date and time: 09/15/2024 5:41 PM Age: 54 years old Clinical indication: Swelling, testicles or scrotum; Additional info: Testicle swelling TECHNIQUE: Imaging protocol: Real-time ultrasound of the scrotum and contents with color Doppler and image documentation. COMPARISON: US renal BI* [id number] 08/05/2024 9:36 AM FINDINGS: Right testicle: Right testicle measures 2.8 x 2.3 x 1.8 cm. No mass. Normal color Doppler and arterial waveforms. RI: 0.72. No torsion. Left testicle: Left testicle measures 3.4 x 2 x 2.3 cm. No mass. Normal color Doppler and arterial waveforms. RI: 0.82. No torsion. Epididymides: Normal. Scrotum/soft tissues: Significant scrotal wall thickening and edema. Other findings: None. US/US scrotum [id number] IMPRESSION: 1. Significant scrotal wall thickening and edema. No drainable fluid collections. 2. No evidence of testicular torsion. 3. Epididymis not well visualized bilaterally.
--- NOTE | 2024-09-15 17:18 | W.ED.GENADLT ---
HPI - General Adult General: Chief complaint: General Medical Stated complaint: legs swollen Time Seen by Provider: 09/15/24 17:12 Source: patient Mode of arrival: ambulatory Limitations: no limitations History of Present Illness: 54-year-old male with a history of congestive heart failure he states that over the last week he is getting roughly 14 pounds he been having increased swelling in his extremities and testicles. He states he is also been having shortness of breath especially with exertion. He denies any cough or fever denies any chest pain Associated symptoms: Reports dyspnea; Deny chest pain, headache(s), nausea, rash or vomiting Related Data Home Medications ?Medication ?Instructions ?Recorded ?Confirmed albuterol sulfate 90 mcg/actuation 2 puff inhalation Q4H PRN 08/05/24 09/15/24 aerosol inhaler Shortness Of Breath insulin glargine 100 unit/mL (3 10 unit SUBCUT BEDTIME 08/05/24 09/15/24 mL) subcutaneous pen (Lantus Solostar U-100 Insulin) insulin lispro 100 unit/mL See Rx Instructions .Route .COMPLEX 08/05/24 09/15/24 subcutaneous pen loperamide 2 mg capsule 4 mg PO QID PRN Diarrhea 08/05/24 09/15/24 oxycodone 10 mg tablet 10 mg PO Q4H PRN Pain 08/05/24 09/15/24 Previous Rx's ?Medication ?Instructions ?Recorded bumetanide 1 mg tablet 1 mg PO BID #60 tabs 08/14/24 carvedilol 12.5 mg tablet 6.25 mg (1/2 x 12.5 mg) PO Q12H 08/14/24 #30 tabs metolazone 5 mg tablet 2.5 mg (1/2 x 5 mg) PO DAILY #30 08/14/24 tabs cholecalciferol (vitamin D3) 1,250 50,000 mcg (40 x 1,250 mcg (50,000 08/27/24 mcg (50,000 unit) capsule unit)) PO Q7D #4 caps dapagliflozin propanediol 10 mg 10 mg PO QAM #30 tabs 08/27/24 tablet (Farxiga) doxazosin 8 mg tablet 8 mg PO DAILY #30 tabs 08/27/24 gabapentin 100 mg capsule 100 mg PO DAILY #30 caps 08/27/24 escitalopram oxalate 5 mg tablet 5 mg PO DAILY #30 tabs 09/07/24 pantoprazole 40 mg tablet,delayed 40 mg PO BID #180 tabs 09/08/24 release (Protonix) potassium chloride 10 mEq 10 meq PO DAILY #30 tabs 09/09/24 tablet,extended release (Klor-Con) voriconazole 200 mg tablet 200 mg PO Q12H 30 days #60 tabs 09/15/24 Allergies Allergy/AdvReac Type Severity Reaction Status Date / Time ketorolac Allergy ADR-Vomitin Verified 09/15/24 13:06 g Review of Systems Const: Denies: fever(s), chills, body aches or change in appetite ENMT: Denies: throat pain or dental pain Card: Denies: chest pain Resp: Reports: dyspnea GI: Denies: abdominal pain, nausea, vomiting or diarrhea Musc: Reports: extremity swelling; Denies: neck pain or back pain Skin/Breast: Denies: rash Neuro: Denies: headache(s) PFSH ED PFSH: Medical History CKD (chronic kidney disease) MRSA pneumonia Blastomycosis of central nervous system Anemia Surgical History S/P percutaneous endoscopic gastrostomy (PEG) tube placement Tracheostomy status Past medical history positive for prolonged hospitalization secondary to angioedema requiring intubation, followed by tracheostomy after prolonged intubation, PEG tube placement after prolonged n.p.o. 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 07/17 MRI lumbar spine chronic degenerative changes, he was given prolonged antibiotics for possible osteomyelitis 08/01: Follow-up MRI no evidence of osteomyelitis Antimicrobial therapy IV vancomycin: Did not tolerate He was given linezolid, ceftaroline meropenem, micafungin, daptomycin Prolonged IV meropenem 07/23 till 08/01 Itraconazole prolonged therapy 07/22-08/01 PICC line removed And sent to spirometer [facility] provided Patient was discharged on room air EGD: 07/28: Gastritis: Colonoscopy 07/30: Nonbleeding internal hemorrhoids: 3 to 5 mm small polyps removed large 20 mm polyp removed as well: Patient was asked to follow-up for colonoscopy within 3 years Diarrhea: C. difficile panel negative: Patient was given Imodium on as-needed basis Social History Smoking and tobacco/nicotine status: never used tobacco/nicotine Alcohol intake: former Household members: family Housing: House Physical Exam Const: COMMON NORMALS: patient oriented x3 HENMT: COMMON NORMALS: normocephalic and atraumatic HEAD & SCALP: normocephalic and atraumatic Eye: COMMON NORMALS: Equal, round and reactive pupils present and EOMs intact bilaterally PUPIL: Yes Equal, round and reactive pupils present Neck/C-Spine: COMMON NORMALS: full ROM and supple Chest: COMMONS NORMALS: normal inspection of the chest and normal palpation of entire chest wall Resp: COMMON NORMALS: normal respiratory effort, No retractions and clear to auscultation bilaterally AUSCULTATION: clear to auscultation bilaterally and rales Cardio: COMMON NORMALS: regular rate, regular rhythm and No murmurs present (Cardio) RATE: regular rate RHYTHM: regular rhythm GI: COMMON NORMALS: Normal to inspection, nondistended, normoactive bowel sounds present, Soft to palpation, non-tender and no masses PALPATION: Yes Soft to palpation Extremity: COMMON NORMALS: full ROM NARRATIVE EXTREMITY EXAM: 2+ edema to le Neuro: COMMON NORMALS: patient oriented x3, moves all extremities and no focal motor deficits Psych: COMMON NORMALS: mental status grossly normal, Normal thought process present and cooperative THOUGHT PROCESS: Normal thought process present Skin: COMMON NORMALS: no rashes or lesions noted and no wounds GENERAL SKIN EXAM: no rashes or lesions noted Course Vital Signs: Vital signs: Vital Signs Temperature 97.8 F 09/15/24 14:47 Pulse Rate 56 L 09/15/24 18:30 Respiratory Rate 20 H 09/15/24 14:47 Blood Pressure 171/59 09/15/24 18:30 Pulse Oximetry 93 09/15/24 18:30 Oxygen Delivery Me thod Room Air 09/15/24 18:30 MDM - General Adult Medical Decision Making Patient presents here with lower extreme edema along with CHF exacerbation did give him IV Lasix here has pulm edema on chest x-ray spoke to hospitalist will admit for observation Medical Records I reviewed the patient's medical records. Lab Data I reviewed the patient's lab results. 09/15/24 17:32 09/15/24 17:32 Radiology Impressions Chest X-Ray 09/15/24 16:16 IMPRESSION: 1. Patchy opacities in the bilateral lobes concerning for multifocal infiltrates. 2. Blunting of the costophrenic angles bilaterally suggestive effusions. Scrotum Ultrasound 09/15/24 17:15 IMPRESSION: 1. Significant scrotal wall thickening and edema. No drainable fluid collections. 2. No evidence of testicular torsion. 3. Epididymis not well visualized bilaterally. Laboratory Results WBC 4.66 10^3/uL (3.29-11.43) 09/15/24 17:32 RBC 3.12 10^6/uL (3.85-5.65) L 09/15/24 17:32 Hgb 8.60 g/dL (11.27-16.99) L 09/15/24 17:32 Hct 28.3 % (37-53) L 09/15/24 17:32 MCV 90.7 fl (82-101) 09/15/24 17:32 MCH 27.6 pg (27-33) 09/15/24 17: MCHC 30.4 g/dL (30-55) 09/15/24 17:32 RDW 15.0 % (12.1-15.1) 09/15/24 17:32 Plt Count 198 10^3/cmm (157-399) 09/15/24 17:32 MPV 10.7 fL (7.4-10.4) H 09/15/24 17:32 Neut % (Auto) 63.8 % 09/15/24 17:32 Lymph % (Auto) 27.0 % 09/15/24 17:32 [place] % (Auto) 7.1 % 09/15/24 17:32 Eos % (Auto) 1.5 % 09/15/24 17:32 Baso % (Auto) 0.4 % 09/15/24 17:32 Neut # (Auto) 2.97 10^3/uL (1.8-7.7) 09/15/24 17:32 Lymph # (Auto) 1.3 10^3/uL (0.8-4.8) 09/15/24 17:32 [place] # (Auto) 0.3 10^3/uL (0.2-0.9) 09/15/24 17:32 Eos # (Auto) 0.1 10^3/uL (0.0-0.8) 09/15/24 17: Baso # (Auto) 0.0 10^3/uL (0.0-0.1) 09/15/24 17:32 Nucleated RBC % (auto) 0 % 09/15/24 17: Nucleated RBCs # 0.0 /100WBC 09/15/24 17:32 Sodium 142 mmol/L (136-145) 09/15/24 17:32 Potassium 3.8 mmol/L (3.5-5.1) 09/15/24 17:32 Chloride 100 mmol/L (98-107) 09/15/24 17:32 Carbon Dioxide 29 mmol/L (22-29) 09/15/24 17:32 Anion Gap 16.8 (5-19) 09/15/24 17:32 BUN 41 mg/dL (6-20) H 09/15/24 17:32 Creatinine 2.6 mg/dL (0.7-1.2) H 09/15/24 17:32 GFR Calculation 25.8 mL/min (90-130) L 09/15/24 17:32 Glucose 167 mg/dL (65-115) H 09/15/24 17:32 Calculated Osmolality 308 mOsm/kg (285-295) H 09/15/24 17:32 Calcium 8.4 mg/dL (8.5-10.5) L 09/15/24 17:32 Total Bilirubin 0.5 mg/dL (0.15-1.2) 09/15/24 17:32 AST 28 U/L (0-40) 09/15/24 17:32 ALT 17 U/L (0-41) 09/15/24 17:32 Alkaline Phosphatase 263 U/L (40-130) H 09/15/24 17:32 NT-Pro-B Natriuret Pep 7854 pg/mL (0-125) H 09/15/24 17:32 Total Protein 7.3 g/dL (6.6-8.7) 09/15/24 17:32 Albumin 3.0 g/dL (3.5-5.2) L 09/15/24 17:32 Globulin 4.3 g/dL (1.3-4.6) 09/15/24 17:32 All radiology interpretation(s) finalized by discharge EKG Data EKG 1: I personally reviewed and interpreted this EKG as follows: EKG interpretation date: 09/15/24 EKG interpretation time: 17:15 Interpretation: nsr hr [address] elevation qrs 114 qtc 444 Computer generated interpretation: Chest X-Ray 09/15/24 16:16 IMPRESSION: 1. Patchy opacities in the bilateral lobes concerning for multifocal infiltrates. 2. Blunting of the costophrenic angles bilaterally suggestive effusions. Scrotum Ultrasound 09/15/24 17:15 IMPRESSION: 1. Significant scrotal wall thickening and edema. No drainable fluid collections. 2. No evidence of testicular torsion. 3. Epididymis not well visualized bilaterally. Discharge Plan Discharge Patient Disposition: Admitted As Inpatient Clinical Impression: Congestive heart failure, Bilateral edema of lower extremity Condition: Stable Prescriptions: No Action voriconazole 200 mg tablet 200 mg PO Q12H 30 Days Qty: 60 0RF Rx Instructions: administer on empty stomach, at least 1 hour before or after meal(s) escitalopram oxalate 5 mg tablet 5 mg PO DAILY Qty: 30 4RF cholecalciferol (vitamin D3) 1,250 mcg (50,000 unit) capsule 50,000 mcg PO Q7D Qty: 4 4RF doxazosin 8 mg tablet 8 mg PO DAILY Qty: 30 3RF dapagliflozin propanediol [Farxiga] 10 mg tablet 10 mg PO QAM Qty: 30 3RF gabapentin 100 mg capsule 100 mg PO DAILY Qty: 30 3RF pantoprazole [Protonix] 40 mg tablet,delayed release (DR/EC) 40 mg PO BID Qty: 180 3RF potassium chloride [Klor-Con 10] 10 mEq tablet extended release 10 meq PO DAILY Qty: 30 1RF loperamide 2 mg Capsule 4 mg PO QID PRN (Reason: Diarrhea) albuterol sulfate 90 mcg/actuation Hfa Aerosol Inhaler 2 puff INHALATION Q4H PRN (Reason: Shortness Of Breath) insulin lispro 100 unit/mL Insulin Pen See Rx Instructions .ROUTE .COMPLEX Rx Instructions: Inject 4 unit subcutaneously 3 times daily before meals. Also take extra when bg is high as follows: 150-200= 2 extra units, 201-250=4 extra units, 251-300= 6 extra units, 301-350= 8 extra units, greater than 350=10 extra units. Max daily dos 42 units. insulin glargine [Lantus Solostar U-100 Insulin] 100 unit/mL (3 mL) Insulin Pen 10 unit SUBCUT BEDTIME oxycodone 10 mg Tablet 10 mg PO Q4H PRN (Reason: Pain) metolazone 5 mg Tablet 2.5 mg PO DAILY Qty: 30 0RF bumetanide 1 mg Tablet 1 mg PO BID Qty: 60 0RF carvedilol 12.5 mg Tablet 6.25 mg PO Q12H Qty: 30 0RF Rx Instructions: must administer with a meal/food Referrals: Corinne Nicholson FNP [Primary Care Provider] - Print Language: Italian Coding Level of Care Code ED Psychologist Industrial Organ[employer]ational for [employer] [facility]
[2024-09-15 17:42] LABS: Basophils % 0.4 %; Eosinophils # 0.1 10^3/uL (0.0-0.8); Eosinophils % 1.5 %; Hematocrit 28.3 % (37-53); Lymphocytes # 1.3 10^3/uL (0.8-4.8); Mean Corpuscular HGB Conc 30.4 g/dL (30-55); Mean Corpuscular Hemoglobin 27.6 pg (27-33); Mean Corpuscular Volume 90.7 fl (82-101); Mean Platelet Volume 10.7 fL (7.4-10.4); Monocytes # 0.3 10^3/uL (0.2-0.9); Monocytes % 7.1 %; Neutrophils # 2.97 10^3/uL (1.8-7.7); Neutrophils % 63.8 %; Nucleated Red Blood Cells % 0 %; Platelet Count 198 10^3/cmm (157-399); Red Blood Count 3.12 10^6/uL (3.85-5.65); White Blood Count 4.66 10^3/uL (3.29-11.43)
[2024-09-15 18:17] LABS: Alanine Aminotransferase 17 U/L (0-41); Alkaline Phosphatase 263 U/L (40-130); Anion Gap 16.8 (5-19); Aspartate Amino Transferase 28 U/L (0-40); Blood Urea Nitrogen 41 mg/dL (6-20); Calcium 8.4 mg/dL (8.5-10.5); Carbon Dioxide 29 mmol/L (22-29); Chloride 100 mmol/L (98-107); Creatinine Clr Calc Pharmacy 39.6423; Globulin 4.3 g/dL (1.3-4.6); Glomerular Filtration Rate 25.8 mL/min (90-130); Glucose 167 mg/dL (65-115); NT Pro B Type Natriuretic Pept 7854 pg/mL (0-125); Osmolality Calculated 308 mOsm/kg (285-295); Potassium 3.8 mmol/L (3.5-5.1); Sodium 142 mmol/L (136-145); Total Bilirubin 0.5 mg/dL (0.15-1.2); Total Protein 7.3 g/dL (6.6-8.7)
[2024-09-15] MEDS: FUROsemide 10 mg/mL SDV 10mL 80 MG IVP (18:35)
--- NOTE | 2024-09-15 19:23 | PM.HP ---
Providers/Chief Complaint Primary Care Provider: Corinne Nicholson APN Chief Complaint: legs swollen History of Present Illness Guido Whalen is a 54 year old male chronic kidney disease, anemia, type 2 diabetes mellitus, history of tracheostomy/PEG with prolonged illness previous this year, hypertension, hyperlipidemia, who presents to the emergency department with worsening congestive heart failure symptoms. Patient reports weight gain of 19 pounds in the last 2 days. Endorses symptoms of orthopnea, PND, shortness of breath, and fatigue. Exertion worsens symptoms. Denies alleviating factors. He reports it is difficult for him to watch his salt load, but he has been trying to be better recently. He notes that the [employer] have recently came out and it is challenging for him to control his salt intake. He denies fevers, chills, nausea or emesis. Denies other alleviating or aggravating factors. Review of Systems Narrative: A complete review of systems was obtained and is negative except as stated in HPI. Medications/Allergies Home Medications ?Medication ?Instructions ?Recorded ?Confirmed ?Last Taken ?Type albuterol sulfate 90 mcg/actuation 2 puff inhalation Q4H PRN 08/05/24 09/15/24 Unknown History aerosol inhaler Shortness Of Breath insulin glargine 100 unit/mL (3 10 unit SUBCUT BEDTIME 08/05/24 09/15/24 08/04/24 History mL) subcutaneous pen (Lantus Solostar U-100 Insulin) insulin lispro 100 unit/mL See Rx Instructions .Route .COMPLEX 08/05/24 09/15/24 08/04/24 History subcutaneous pen loperamide 2 mg capsule 4 mg PO QID PRN Diarrhea 08/05/24 09/15/24 Unknown History oxycodone 10 mg tablet 10 mg PO Q4H PRN Pain 08/05/24 09/15/24 Unknown History bumetanide 1 mg tablet 1 mg PO BID #60 tabs 08/14/24 09/15/24 Unknown Rx carvedilol 12.5 mg tablet 6.25 mg (1/2 x 12.5 mg) PO Q12H 08/14/24 09/15/24 08/04/24 Rx #30 tabs metolazone 5 mg tablet 2.5 mg (1/2 x 5 mg) PO DAILY #30 08/14/24 09/15/24 Unknown Rx tabs cholecalciferol (vitamin D3) 1,250 50,000 mcg (40 x 1,250 mcg (50,000 08/27/24 09/15/24 Unknown Rx mcg (50,000 unit) capsule unit)) PO Q7D #4 caps dapagliflozin propanediol 10 mg 10 mg PO QAM #30 tabs 08/27/24 09/15/24 Unknown Rx tablet (Farxiga) doxazosin 8 mg tablet 8 mg PO DAILY #30 tabs 08/27/24 09/15/24 Unknown Rx gabapentin 100 mg capsule 100 mg PO DAILY #30 caps 08/27/24 09/15/24 Unknown Rx escitalopram oxalate 5 mg tablet 5 mg PO DAILY #30 tabs 09/07/24 09/15/24 Unknown Rx pantoprazole 40 mg tablet,delayed 40 mg PO BID #180 tabs 09/08/24 09/15/24 Unknown Rx release (Protonix) potassium chloride 10 mEq 10 meq PO DAILY #30 tabs 09/09/24 09/15/24 Unknown Rx tablet,extended release (Klor-Con) voriconazole 200 mg tablet 200 mg PO Q12H 30 days #60 tabs 09/15/24 09/15/24 Unknown Rx Allergies Allergy/AdvReac Type Severity Reaction Status Date / Time ketorolac Allergy ADR-Vomitin Verified 09/15/24 13:06 g PFSH Acute PFSH: Medical History CKD (chronic kidney disease) MRSA pneumonia Blastomycosis of central nervous system Anemia Surgical History S/P percutaneous endoscopic gastrostomy (PEG) tube placement Tracheostomy status Past medical history positive for prolonged hospitalization secondary to angioedema requiring intubation, followed by tracheostomy after prolonged intubation, PEG tube placement after prolonged n.p.o. 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 07/17 MRI lumbar spine chronic degenerative changes, he was given prolonged antibiotics for possible osteomyelitis 08/01: Follow-up MRI no evidence of osteomyelitis Antimicrobial therapy IV vancomycin: Did not tolerate He was given linezolid, ceftaroline meropenem, micafungin, daptomycin Prolonged IV meropenem 07/23 till 08/01 Itraconazole prolonged therapy 07/22-08/01 PICC line removed [facility] Patient was discharged on room air EGD: 07/28: Gastritis: Colonoscopy 07/30: Nonbleeding internal hemorrhoids: 3 to 5 mm small polyps removed large 20 mm polyp removed as well: Patient was asked to follow-up for colonoscopy within 3 years Diarrhea: C. difficile panel negative: Patient was given Imodium on as-needed basis Family History Father Heart disease Social History Smoking and tobacco/nicotine status: never used tobacco/nicotine Alcohol intake: former Household members: family Housing: House Vitals/I&O/Wt Last Vital Signs Temp 97.8 F 09/15/24 14:47 Pulse 56 L 09/15/24 18:30 Resp 20 H 09/15/24 14:47 BP 171/59 09/15/24 18:30 Pulse Ox 93 09/15/24 18:30 O2 Del Method Room Air 09/15/24 18:30 Weight last 48 hrs Weight 115.666 kg Physical Exam Narrative: General: Patient is awake and alert. Head: Normocephalic. Atraumatic. EOM intact. Neck: Elevated JVD. Cardiovascular: RRR. No gallops. No murmurs. 3+ pitting edema in lower extremities bilaterally. There is significant edema extending to the thighs although not pitting. Lungs: Conversational dyspnea, no use of accessory muscles. Very faint dependent crackles. No wheezes. On room air. Skin: No jaundice. No rashes. Abdomen: Abdomen is firm. Unable to appreciate fluid wave. Not tender. Bowel sounds are present. Genito Urinary: Genital exam not performed since complaints not related. Rectal: Rectal exam not performed since no symptoms indicated blood loss. Extremities: No cyanosis or clubbing. Musculoskeletal: 5/5 strength, normal range of motion, no swollen or erythematous joints. Neurological: Moves all 4 extremities. No myoclonus. Data 09/15/24 17:32 09/15/24 17:32 A&P Assessment and plan (1) Anasarca: Presentation consistent with Anasarca TTE (08/05/24): LVEF 55-60%, RVSP 35-40 mmHg CXR w/ bilateral infiltrates; improving from prior Afebrile; no leukocytosis; check inflammatory markers Start IV Lasix Strict I&O Daily weights (2) CKD (chronic kidney disease): Renal function at baseline Diuresis as above Renally dose medications (3) Anemia: Monitor (4) Diabetes: Continue long acting insulin at reduce dose SSI (5) Liver cirrhosis: Volume control as above (6) Hypertension: Continue home medications Plan DVT ppx: Heparin Code: Full Code PDMP PDMP Reviewed: Not Reviewed Attestations Medical Necessity Statement*: Pt presents with ansarca with expected hospitalization not to cross two midnights for IV diuresis and volume control. Coding Level of Care Code Acute Code for Chg Fwd Diagnoses Anasarca R60.1 CKD (chronic kidney disease) N18.9 Anemia D64.9 Diabetes E11.9 Liver cirrhosis K74.60 Hypertension I10
[2024-09-15] MEDS: heparin 5,000 unit/mL INJ 1 mL 5000 UNIT SUBCUT (20:52)
[2024-09-15 21:09] LABS: Bilirubin Urine Negative (Negative); Blood Urine Negative (Negative); Glucose Urine UA 3+ (Normal); Ketones Urine Negative (Negative); Leukocyte Esterase Urine Negative (Negative); Nitrate Urine Negative (Negative); Protein Urine 2+ (Negative); Specific Gravity, Urine 1.019 (1.005-1.030); Urine Appearance Clear (CLEAR); Urine Color Yellow (Yellow); Urobilinogen Urine 0.2 mg/dL (Negative); pH Urine 5.5 (5-7)
[2024-09-15 21:13] LABS: Bacteria Urine None Seen /hpf; Hyaline Casts Urine 1.21 /lpf; RBC Urine 0-2 /hpf (0-2); Squamous Epithelial Cell Urine 0-5 /hpf (0-5); WBC Urine 0-5 /hpf (0-5)
[2024-09-15 21:16] LABS: C Reactive Protein 26.4 mg/L (0.0-4.9)
[2024-09-15 21:23] LABS: Procalcitonin 0.07 ng/mL (0-0.5)
[2024-09-15 21:57] LABS: Glucose Point of Care 244 mg/dL (70-110)
[2024-09-15] MEDS: carvedilol 6.25 mg Tablet PO (22:03)
[2024-09-15] MEDS: insulin glargine 100 units/1 mL 5 UNIT SUBCUT (22:04)
[2024-09-16] VITALS (12 sets, daily range): BP systolic 127–156; BP diastolic 64–98; PULSE 52–62; RESP 16–18; TEMP 36.3–36.5; O2SAT 90–98
[2024-09-16] MEDS: oxyCODONE 5 mg IR Tab/Cap 10 MG PO ×4 (02:01→20:33)
[2024-09-16 06:04] LABS: Basophils % 0.5 %; Eosinophils # 0.1 10^3/uL (0.0-0.8); Eosinophils % 1.5 %; Hematocrit 28.2 % (37-53); Lymphocytes % 26.7 %; Mean Corpuscular HGB Conc 29.8 g/dL (30-55); Mean Corpuscular Hemoglobin 27.8 pg (27-33); Mean Corpuscular Volume 93.4 fl (82-101); Mean Platelet Volume 11.2 fL (7.4-10.4); Monocytes # 0.3 10^3/uL (0.2-0.9); Monocytes % 7.7 %; Neutrophils # 2.47 10^3/uL (1.8-7.7); Neutrophils % 63.3 %; Nucleated Red Blood Cells % 0 %; Platelet Count 200 10^3/cmm (157-399); Red Blood Count 3.02 10^6/uL (3.85-5.65)
[2024-09-16] MEDS: metOLazone 5 MG Tablet 2.5 MG PO ×2 (06:12→09:07)
[2024-09-16] MEDS: FUROsemide 10 mg/mL SDV 10mL 80 MG IVP ×2 (06:12→18:11)
[2024-09-16 06:33] LABS: Anion Gap 15.2 (5-19); Blood Urea Nitrogen 41 mg/dL (6-20); Calcium 8.3 mg/dL (8.5-10.5); Carbon Dioxide 29 mmol/L (22-29); Chloride 101 mmol/L (98-107); Creatinine Clr Calc Pharmacy 39.4364; Glomerular Filtration Rate 25.8 mL/min (90-130); Glucose 195 mg/dL (65-115); Magnesium 2.1 mg/dL (1.7-2.3); Osmolality Calculated 309 mOsm/kg (285-295); Potassium 3.2 mmol/L (3.5-5.1); Sodium 142 mmol/L (136-145)
[2024-09-16 06:41] LABS: Glucose Point of Care 222 mg/dL (70-110)
--- NOTE | 2024-09-16 09:03 | PC.CHAP ---
Pastoral Care Encounter/Spiritual Assessment Type of Contact [] Declined manager shell visit [] Patient/Family/Request visit [] Outpatient visit [] Follow-up visit [] Physician referral [] Code/Alert [x] Routine visit [] Staff referral [] Actively dying [] Patient sleeping [] Family support [] [] Out of room [] Palliative care [] [] Receiving care in room [] Pre-surgical visit [] Trauma [] Long length of stay [] ICU visit [] Other: Relational/Emotional Strength [x] Patient feels connected with others/family/visitors/staff [] Distress [] Loneliness/isolation [] Abandonment Spirituality of Patient [x] Person of Erendira [] Attends Druze of their [place] [x] Believes in Prayer [] Reads Bible or Sikh materials [] There are Spiritual issues to be addressed Process Safety Manager Interventions [x] Prayer [x] Active listening [] Non-anxious presence [x] Spiritual/emotional support [] Crisis/trauma care [] Spiritual counseling [] Bereavement support [] Provided bereavement packet [] Provided Bible/devotional materials [] Provided toy/stuffed animal, coloring book to patient or family member [] Provided Communion [] Anointing/[place] [] Salvation [x] Completed spiritual assessment [] Other: Impact on Illness or Injury [] Angry [] Fearful [] Anxious [] Often cries [] Exhaustion [] Unable to work [] Unable to attend episcopal [] Unable to walk/stand [] Unable to read [] Unable to drive [] Unable to eat/drink [] Unable to sleep [] Unable to be with family [] Patient intubated [] Other: Summary Time spent with patient 5 min
[2024-09-16] MEDS: insulin lispro 100 unit/1 mL SUBCUT ×2 (09:05→20:43)
[2024-09-16] MEDS: gabapentin 100 mg Capsule PO (09:06)
[2024-09-16] MEDS: potassium chloride ER 10 mEq Tablet PO (09:06)
[2024-09-16] MEDS: carvedilol 6.25 mg Tablet PO ×2 (09:06→20:33)
[2024-09-16] MEDS: pantoprazole DR 40 mg Tablet PO ×2 (09:06→18:11)
[2024-09-16] MEDS: escitalopram 10 mg Tablet 5 MG PO (09:07)
[2024-09-16] MEDS: heparin 5,000 unit/mL INJ 1 mL 5000 UNIT SUBCUT ×2 (09:07→09:13)
[2024-09-16] MEDS: doxazosin 4 mg Tablet 8 MG PO (09:13)
[2024-09-16] MEDS: potassium chloride ER 20 mEq Tablet 40 MEQ PO ×2 (09:13→14:40)
[2024-09-16 12:06] LABS: Glucose Point of Care 107 mg/dL (70-110)
--- NOTE | 2024-09-16 12:54 | P.PN_ITS ---
Subjective 2 Subjective: No acute overnight events noted. Denies any complaint of chest pain or shortness of breath at this time. He is a new admit overnight for anasarca. Presented with worsening congestive heart failure symptoms. He reports weight gain 19 pounds in last 2 days. Had complaint of orthopnea, PND, shortness of breath and fatigue Medications: Reviewed: Yes Vitals/I&O/Wt Last Vital Signs Temp 97.6 F 09/16/24 11:23 Pulse 58 L 09/16/24 11:23 Resp 16 09/16/24 11:23 BP 127/64 09/16/24 11:23 Pulse Ox 92 09/16/24 11:23 O2 Del Method Room Air 09/16/24 11:23 O2 Flow Rate 3 09/16/24 08:00 09/15/24 09/16/24 09/16/24 22:59 06:59 14:59 Intake Total 240 / 240 480 / 720 480 / 480 Output Total 1200 / 1200 960 / 960 Balance 240 / 240 -720 / -480 -480 / -480 Weight last 48 hrs Weight 114.532 kg Weight 116.483 kg Weight 116.12 kg Weight 115.666 kg Physical Exam 2 Narrative: General: Patient is awake and alert, oriented x 3. Neck: Elevated JVD. Cardiovascular: RRR. No gallops. No murmurs. 3+ pitting edema in lower extremities bilaterally. There is significant edema extending to the thighs although not pitting. Lungs: Conversational dyspnea, no use of accessory muscles. Very faint dependent crackles. No wheezes. On room air. Abdomen: Abdomen is firm. Unable to appreciate fluid wave. Not tender. Bowel sounds are present. Data 09/16/24 05:56 09/16/24 05:56 A&P Assessment and plan (1) Anasarca: (2) CKD (chronic kidney disease): (3) Anemia: (4) Diabetes: (5) Liver cirrhosis: (6) Hypertension: Plan Guido Whalen is a 54 year old male chronic kidney disease, anemia, type 2 diabetes mellitus, history of tracheostomy/PEG with prolonged illness previous this year, hypertension, hyperlipidemia, who presents to the emergency department with worsening congestive heart failure symptoms. Patient reports weight gain of 19 pounds in the last 2 days. Endorses symptoms of orthopnea, PND, shortness of breath, and fatigue. #Presentation consistent with Anasarca TTE (08/05/24): LVEF 55-60%, RVSP 35-40 mmHg CXR w/ bilateral infiltrates; improving from prior Afebrile; no leukocytosis; check inflammatory markers Start IV Lasix Strict I&O Daily weights HTN Anemia Type 2 DM CKD HLD 09/16/24 BNP 7854 Continue Iv lasix 80mg bid He just moved from [place] 2 months ago, hence would need cardiology referral on discharge. Potassium was 3.2 this morning, magnesium 2.1. Will replace appropriately HTN-Coreg, doxazocin Anemia- hemoglobin 8.4, at baseline. Type 2 DM-continue insulin glargine 5 units at bedtime and insulin lispro correction scale. CKD-metolazone and potassium chloride HLD-lipid profile normal, not on meds GI prophylaxis with p.o. Protonix 40 mg twice daily DVT ppx: Heparin Code: Full Code PDMP PDMP Reviewed: Not Reviewed Attestations 2 Medical Necessity Statement*: Pt presents with ansarca with expected hospitalization not to cross two midnights for IV diuresis and volume control. Time Spent in Patient Care: 20minutes Coding Level of Care Code Acute Code for Chg Fwd Diagnoses Anasarca R60.1 CKD (chronic kidney disease) N18.9 Anemia D64.9 Diabetes E11.9 Liver cirrhosis K74.60 Hypertension I10 Time Spent (min) 20
[2024-09-16 16:50] LABS: Glucose Point of Care 134 mg/dL (70-110)
[2024-09-16 20:15] LABS: Glucose Point of Care 194 mg/dL (70-110)
[2024-09-16] MEDS: insulin glargine 100 units/1 mL 5 UNIT SUBCUT (20:34)
[2024-09-17] VITALS (7 sets, daily range): BP systolic 129–153; BP diastolic 71–88; PULSE 50–60; RESP 16–17; TEMP 36.3–36.5; O2SAT 90–92
[2024-09-17] MEDS: oxyCODONE 5 mg IR Tab/Cap 10 MG PO ×2 (00:50→13:54)
[2024-09-17 05:32] LABS: Basophils % 0.5 %; Eosinophils # 0.1 10^3/uL (0.0-0.8); Eosinophils % 1.9 %; Lymphocytes # 0.9 10^3/uL (0.8-4.8); Lymphocytes % 21.4 %; Mean Corpuscular HGB Conc 29.6 g/dL (30-55); Mean Corpuscular Hemoglobin 27.5 pg (27-33); Mean Corpuscular Volume 92.7 fl (82-101); Monocytes # 0.4 10^3/uL (0.2-0.9); Monocytes % 8.9 %; Neutrophils # 2.78 10^3/uL (1.8-7.7); Neutrophils % 66.8 %; Nucleated Red Blood Cells % 0 %; Platelet Count 212 10^3/cmm (157-399); Red Blood Count 3.02 10^6/uL (3.85-5.65); White Blood Count 4.16 10^3/uL (3.29-11.43)
[2024-09-17] MEDS: FUROsemide 10 mg/mL SDV 10mL 80 MG IVP (05:52)
[2024-09-17 06:03] LABS: Anion Gap 14.6 (5-19); Blood Urea Nitrogen 41 mg/dL (6-20); Calcium 8.4 mg/dL (8.5-10.5); Carbon Dioxide 30 mmol/L (22-29); Chloride 99 mmol/L (98-107); Creatinine Clr Calc Pharmacy 37.9758; Glomerular Filtration Rate 24.7 mL/min (90-130); Glucose 97 mg/dL (65-115); Magnesium 2.2 mg/dL (1.7-2.3); Osmolality Calculated 300 mOsm/kg (285-295); Potassium 3.6 mmol/L (3.5-5.1); Sodium 140 mmol/L (136-145)
[2024-09-17 06:30] LABS: Glucose Point of Care 124 mg/dL (70-110)
[2024-09-17] MEDS: carvedilol 6.25 mg Tablet PO (09:03)
[2024-09-17] MEDS: gabapentin 100 mg Capsule PO (09:04)
[2024-09-17] MEDS: pantoprazole DR 40 mg Tablet PO (09:04)
[2024-09-17] MEDS: escitalopram 10 mg Tablet 5 MG PO (09:04)
[2024-09-17] MEDS: metOLazone 5 MG Tablet 2.5 MG PO (09:05)
[2024-09-17] MEDS: heparin 5,000 unit/mL INJ 1 mL 5000 UNIT SUBCUT (09:05)
[2024-09-17] MEDS: potassium chloride ER 10 mEq Tablet PO (09:05)
[2024-09-17] MEDS: doxazosin 4 mg Tablet 8 MG PO (09:05)
--- NOTE | 2024-09-17 10:32 | PM.DCS ---
Discharge Providers Date of Admission: 09/15/24 21:21 Date of Discharge: September 17, 2024 Attending Provider at Admission: Radames Kowalski MD Attending Provider at Discharge: Janee Conklin MD Primary Care Provider: Corinne Nicholson APN Diagnoses at Discharge Discharge Diagnosis (1) Anasarca: Status: Acute (2) CKD (chronic kidney disease): Status: Chronic (3) Anemia: Status: Acute (4) Diabetes: Status: Acute (5) Liver cirrhosis: Status: Acute (6) Hypertension: Status: Acute Reason for Visit Reason for Visit: legs swollen Brief History: Guido Whalen is a 54 year old male chronic kidney disease, anemia, type 2 diabetes mellitus, history of tracheostomy/PEG with prolonged illness previous this year, hypertension, hyperlipidemia, who presents to the emergency department with worsening congestive heart failure symptoms. Patient reports weight gain of 19 pounds in the last 2 days. Endorses symptoms of orthopnea, PND, shortness of breath, and fatigue. Exertion worsens symptoms. Denies alleviating factors. He reports it is difficult for him to watch his salt load, but he has been trying to be better recently. He notes that the [employer] have recently came out and it is challenging for him to control his salt intake. He denies fevers, chills, nausea or emesis. Denies other alleviating or aggravating factors. Hospital Course Hospital Course #Presentation consistent with Anasarca TTE (08/05/24): LVEF 55-60%, RVSP 35-40 mmHg CXR w/ bilateral infiltrates; improving from prior Afebrile; no leukocytosis; check inflammatory markers Start IV Lasix . received iv lasix 80mg bid. he lost 2 lbs, feels better, anasarca improving. renal function was stable. educated and counseled about fluid restriction and salt restriction. plan to discharge him today, to be followed up in cardiology outpatient in 1 week. Physical Exam Narrative: General: Patient is awake and alert, oriented x 3. Neck: Elevated JVD. Cardiovascular: RRR. No gallops. No murmurs. 3+ pitting edema in lower extremities bilaterally. There is significant edema extending to the thighs although not pitting.edema improving, reports scrotal edema improving and has been able to walk. Lungs: Conversational dyspnea, no use of accessory muscles. Very faint dependent crackles. No wheezes. On room air. Abdomen: Abdomen is firm. Unable to appreciate fluid wave. Not tender. Bowel sounds are present. Discharge Data Studies Completed and Pending Completed Studies During Hospitalization Category Date Time Status XR chest 1V portable [id number] Stat Exams 09/15/24 16:16 Completed US testicular [US scrotum [id number]] Stat Ultrasound 09/15/24 17:15 Completed Radiology Impressions Chest X-Ray 09/15/24 16:16 IMPRESSION: 1. Patchy opacities in the bilateral lobes concerning for multifocal infiltrates. 2. Blunting of the costophrenic angles bilaterally suggestive effusions. Scrotum Ultrasound 09/15/24 17:15 IMPRESSION: 1. Significant scrotal wall thickening and edema. No drainable fluid collections. 2. No evidence of testicular torsion. 3. Epididymis not well visualized bilaterally. Laboratory Results WBC 4.16 10^3/uL (3.29-11.43) 09/17/24 05:11 RBC 3.02 10^6/uL (3.85-5.65) L 09/17/24 05:11 Hgb 8.30 g/dL (11.27-16.99) L 09/17/24 05:11 Hct 28.0 % (37-53) L 09/17/24 05:11 MCV 92.7 fl (82-101) 09/17/24 05:11 MCH 27.5 pg (27-33) 09/17/24 05:11 MCHC 29.6 g/dL (30-55) L 09/17/24 05:11 RDW 15.0 % (12.1-15.1) 09/17/24 05:11 Plt Count 212 10^3/cmm (157-399) 09/17/24 05:11 MPV 11.0 fL (7.4-10.4) H 09/17/24 05:11 Neut % (Auto) 66.8 % 09/17/24 05:11 Lymph % (Auto) 21.4 % 09/17/24 05:11 [place] % (Auto) 8.9 % 09/17/24 05:11 Eos % (Auto) 1.9 % 09/17/24 05:11 Baso % (Auto) 0.5 % 09/17/24 05:11 Neut # (Auto) 2.78 10^3/uL (1.8-7.7) 09/17/24 05:11 Lymph # (Auto) 0.9 10^3/uL (0.8-4.8) 09/17/24 05:11 [place] # (Auto) 0.4 10^3/uL (0.2-0.9) 09/17/24 05:11 Eos # (Auto) 0.1 10^3/uL (0.0-0.8) 09/17/24 05:11 Baso # (Auto) 0.0 10^3/uL (0.0-0.1) 09/17/24 05:11 Nucleated RBC % (auto) 0 % 09/17/24 05:11 Nucleated RBCs # 0.0 /100WBC 09/17/24 05:11 Sodium 140 mmol/L (136-145) 09/17/24 05:11 Potassium 3.6 mmol/L (3.5-5.1) 09/17/24 05:11 Chloride 99 mmol/L (98-107) 09/17/24 05:11 Carbon Dioxide 30 mmol/L (22-29) H 09/17/24 05:11 Anion Gap 14.6 (5-19) 09/17/24 05:11 BUN 41 mg/dL (6-20) H 09/17/24 05:11 Creatinine 2.7 mg/dL (0.7-1.2) H 09/17/24 05:11 GFR Calculation 24.7 mL/min (90-130) L 09/17/24 05:11 Glucose 97 mg/dL (65-115) 09/17/24 05:11 POC Glucose 124 mg/dL (70-110) H 09/17/24 06:21 Calculated Osmolality 300 mOsm/kg (285-295) H 09/17/24 05:11 Calcium 8.4 mg/dL (8.5-10.5) L 09/17/24 05:11 Magnesium 2.2 mg/dL (1.7-2.3) 09/17/24 05:11 Total Bilirubin 0.5 mg/dL (0.15-1.2) 09/15/24 17:32 AST 28 U/L (0-40) 09/15/24 17:32 ALT 17 U/L (0-41) 09/15/24 17: Alkaline Phosphatase 263 U/L (40-130) H 09/15/24 17:32 C-Reactive Protein 26.4 mg/L (0.0-4.9) H 09/15/24 17: NT-Pro-B Natriuret Pep 7854 pg/mL (0-125) H 09/15/24 17: Total Protein 7.3 g/dL (6.6-8.7) 09/15/24 17: Albumin 3.0 g/dL (3.5-5.2) L 09/15/24 17: Globulin 4.3 g/dL (1.3-4.6) 09/15/24 17: Procalcitonin 0.07 ng/mL (0-0.5) 09/15/24 17: Urine Color Yellow (Yellow) 09/15/24 18: Urine Appearance Clear (CLEAR) 09/15/24 18: Urine pH 5.5 (5-7) 09/15/24 18: Ur Specific [place] 1.019 (1.005-1.030) 09/15/24 18: Urine Protein 2+ (Negative) A 09/15/24 18: Urine Glucose (UA) 3+ (Normal) H 09/15/24 18: Urine Ketones Negative (Negative) 09/15/24 18: Urine Blood Negative (Negative) 09/15/24 18: Urine Nitrate Negative (Negative) 09/15/24 18: Urine Bilirubin Negative (Negative) 09/15/24 18: Urine Urobilinogen 0.2 mg/dL (Negative) 09/15/24 18: Ur Leukocyte Esterase Negative (Negative) 09/15/24 18: Urine RBC 0-2 /hpf (0-2) 09/15/24 18: Urine WBC 0-5 /hpf (0-5) 09/15/24 18: Ur Squamous Epith Cells 0-5 /hpf (0-5) 09/15/24 18: Amorphous Sediment Not Reportable 09/15/24 18: Urine Bacteria None seen /hpf (NONE) 09/15/24 18: Hyaline Casts 1.21 /lpf 09/15/24 18: Vitals Last Vital Signs Temp 97.4 F L 09/17/24 07:50 Pulse 60 09/17/24 07:50 Resp 16 09/17/24 07:50 BP 140/88 09/17/24 07:50 Pulse Ox 90 09/17/24 07:50 O2 Del Method Room Air 09/17/24 07:50 O2 Flow Rate 3 09/16/24 08:00 Discharge Plan Discharge Patient Disposition: Home Condition: Stable Prescriptions: New furosemide [Lasix] 40 mg tablet 40 mg PO BID Qty: 10 0RF Continued voriconazole 200 mg tablet 200 mg PO Q12H 30 Days Qty: 60 0RF Rx Instructions: administer on empty stomach, at least 1 hour before or after meal(s) escitalopram oxalate 5 mg tablet 5 mg PO DAILY Qty: 30 4RF cholecalciferol (vitamin D3) 1,250 mcg (50,000 unit) capsule 50,000 mcg PO Q7D Qty: 4 4RF doxazosin 8 mg tablet 8 mg PO DAILY Qty: 30 3RF dapagliflozin propanediol [Farxiga] 10 mg tablet 10 mg PO QAM Qty: 30 3RF gabapentin 100 mg capsule 100 mg PO DAILY Qty: 30 3RF pantoprazole [Protonix] 40 mg tablet,delayed release (DR/EC) 40 mg PO BID Qty: 180 3RF potassium chloride [Klor-Con 10] 10 mEq tablet extended release 10 meq PO DAILY Qty: 30 1RF loperamide 2 mg Capsule 4 mg PO QID PRN (Reason: Diarrhea) albuterol sulfate 90 mcg/actuation Hfa Aerosol Inhaler 2 puff INHALATION Q4H PRN (Reason: Shortness Of Breath) insulin lispro 100 unit/mL Insulin Pen See Rx Instructions .ROUTE .COMPLEX Rx Instructions: Inject 4 unit subcutaneously 3 times daily before meals. Also take extra when bg is high as follows: 150-200= 2 extra units, 201-250=4 extra units, 251-300= 6 extra units, 301-350= 8 extra units, greater than 350=10 extra units. Max daily dos 42 units. insulin glargine [Lantus Solostar U-100 Insulin] 100 unit/mL (3 mL) Insulin Pen 10 unit SUBCUT BEDTIME oxycodone 10 mg Tablet 10 mg PO Q4H PRN (Reason: Pain) bumetanide 1 mg Tablet 1 mg PO BID Qty: 60 0RF carvedilol 12.5 mg Tablet 6.25 mg PO Q12H Qty: 30 0RF Rx Instructions: must administer with a meal/food cyclobenzaprine 10 mg tablet 10 mg PO BID PRN (Reason: Spasms) metolazone 2.5 mg tablet 2.5 mg PO DAILY lidocaine [Lidocaine Pain Relief] 4 % adhesive patch,medicated 1 patch TOPICAL Q12H PRN (Reason: Pain) ferrous sulfate [FeroSul] 325 mg (65 mg iron) tablet 325 mg PO .QOD Changed amlodipine 10 mg tablet 5 mg PO DAILY 30 Days Qty: 30 0RF Discontinued gabapentin 300 mg capsule 300 mg PO BID furosemide 20 mg tablet 20 mg PO DAILY Trulicity 0.75 mg/0.5 mL pen injector 0.75 mg SUBCUT Q7D Discharge Orders: Discharge Order (Routine); Ordered 09/17/24 Ordered By: Janee Conklin Other Ambulatory Orders: DME: Jose (Order) Location: None Selected Ordered By: Janee Conklin Referrals: Corinne Nicholson FNP [Primary Care Provider] - Mai Garcia MD [Physician] - 09/29/24 2:30 pm Discharge Diet: Cardiac Discharge Activity: Increase activity as tolerated Patient Instructions: Opioid Safety Activity Restrictions/Additional Instructions: Take lasix 40mg twice a day for 5 days and then 40mg once a day along with bumex and metolazone Discharge Attestations Time Spent in Discharge Care*: less than 30 min Status at Discharge: Cognitive status at discharge: cognitively intact, Behavioral status at discharge: cooperative, Quality Metrics Clinical Quality Measures [ No reported AMI, CVA or VTE this stay] Coding Level of Care Code Acute Code for g Fwd Diagnoses Anasarca R60.1 CKD (chronic kidney disease) N18.9 Anemia D64.9 Diabetes E11.9 Liver cirrhosis K74.60 Hypertension I10 Time Spent (min) 20
[2024-09-17 11:39] LABS: Glucose Point of Care 170 mg/dL (70-110)
[2024-09-17] MEDS: insulin lispro 100 unit/1 mL SUBCUT (12:07)
== END 2024-09-17 14:30 | disposition home or self-care (01) ==
LOC: ER 19:26 → MEDSURG 21:21
PROVIDERS: Admitting Provider Internal Medicine; Emergency Provider Emergency Medicine; PCP Nurse Practitioner; Visit Provider Internal Medicine
DX: R60.1 Generalized edema (principal); E11.22 Type 2 diabetes mellitus with diabetic chronic kidney disease; I12.9 Hypertensive chronic kidney disease with stage 1 through stage 4 chronic kidney disease, or unspecified chronic kidney disease; N18.9 Chronic kidney disease, unspecified; D63.1 Anemia in chronic kidney disease; K74.60 Unspecified cirrhosis of liver; Z79.4 Long term (current) use of insulin; K21.9 Gastro-esophageal reflux disease without esophagitis; Z93.0 Tracheostomy status; J15.212 Pneumonia due to Methicillin resistant Staphylococcus aureus; Z82.49 Family history of ischemic heart disease and other diseases of the circulatory system; Z86.14 Personal history of Methicillin resistant Staphylococcus aureus infection
CPT/HCPCS: 36415; 36416; 71045; 76870; 80048; 80053; 81001; 82962; 83735; 83880; 84145; 85025; 86140; 93005; 96372; 96374; 99205; 99285; G0378; J1644; J1815; J1938; J9999

== ENCOUNTER → 2024-09-29 15:58 | Outpatient (BNVA) | payer BC, MEDICAID, SELFPAY | PROVIDERS: PCP Nurse Practitioner; Visit Provider Internal Medicine Cardiovascular Disease | DX: R06.02 Shortness of breath (principal) | CPT/HCPCS: 36415; 80048; 80299; 83880; 86612 ==

== ENCOUNTER → 2024-10-20 14:46 | Outpatient (BNVA) | payer BC, MEDICAID, SELFPAY | PROVIDERS: PCP Nurse Practitioner; Visit Provider Nurse Practitioner | DX: R06.02 Shortness of breath (principal); E11.59 Type 2 diabetes mellitus with other circulatory complications; Z79.4 Long term (current) use of insulin | CPT/HCPCS: 80048; 83036; 83880 ==

== ENCOUNTER 2024-11-24 14:47 | Inpatient (IN) | payer BC, MEDICAID, SELFPAY ==
[2024-11-24] VITALS (12 sets, daily range): BP systolic 143–186; BP diastolic 53–96; PULSE 69–84; RESP 16–18; TEMP 36.5–36.7; O2SAT 88–96
--- NOTE | 2024-11-24 14:52 | ECG_ITS ---
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 Measurements Intervals [place] Rate: 68 P: 55 IA: 145 QRS: 13 QRSD: 104 T: 25 QT: 417 QTc: 446 Interpretive Statements SINUS RHYTHM NONSPECIFIC ST & T-WAVE ABNORMALITY Compared to ECG 09/15/2024 17:15:04 Intraventricular conduction delay no longer present T-wave abnormality still present Electronically Signed On 11-26-2024 09:00:04 CDT by Raul Sánchez M.D. [email or web address] [id number]
--- OUTSIDE RECORDS SUMMARY | 2024-11-24 14:52 | XMS_ITS | Encounter Summary ---
Author Organization [facility] Address [address] [place] [address] Care Team Providers Care Insole Filler Name Role Phone Unavailable Primary Care Provider Unavailabl e Reason for Visit * Reason Onset Date Comments instructions for cath. 10/20/2024 Encounter Details Date Type Department Care Team (Late st Contact Info) Description 10/20/2024 Telephone [facility] [address] [facility] [address] [place] [address] Eloina Carvajal, SKYLA [address] [facility] [address] [place] [address] instructions for cath. ( ) Social History Tobacco Use Types Packs/Day Years Used Date Smoking Tobacco: Never Feeling Safe Answer Date Recorded Are you in a relationship wi th someone who hurts you emotionally and/or physically? No 10/08/2024 Food Insecurity Answer Date Recorded Patient needs follow up regardin 10/08/2024 Transportation Needs Answer Date Record ed Patient needs follow up regardin 10/08/2024 Utility Needs Answer Date Recorded Patient needs follow up regardin 10/08/2024 Sex and Gender Information Value Date Recorded Sex Assigned at Not on file Legal Sex Male 2:26 PM CDT Gender Identity Not on file Sexual Orientation Not on file documented as of this encounter Miscellaneous Notes * Telephone Encounter - Benito Deras RN - 11/19/2024 4:38 PM CDT Contacted and c scheduled. 12/03 at 0800. See letter for instructions reviewed. Questions answered. He voiced understanding and agrees. * Telephone Encounter - Staci Pike RN - 11/18/2024 11:51 AM CDT Images from the original note were not included. Michaela Fraser, LEACH TANK TENDER Benito Deras RN Caller: Unspecified (4 weeks ago) Patient is on hemodialysis. Okay to arrange with nephrology timing of cath, anticipate [facility] will be non-dialysis day. Patient will not need IVF since he is on HD. Thank you. * Telephone Encounter - Benito Deras RN - 10/20/2024 4:31 PM CDT ----- Message from Nurse Staci Pike sent at 10/20/2024 10:17 AM CDT ----- Regarding: FW: outpatient cath Dr. Vazquez is next ----- Message ----- From: Kathy Hensley RN Sent: 10/20/2024 10:15 AM CDT To: [facility] Nurses Invasive 1 Subject: FW: outpatient cath Needing first available [facility] ----- Message ----- From: Eloina Carvajal NP Sent: 10/17/2024 9:47 AM CDT To: Kathy Hensley RN Subject: outpatient cath Donny pt. Needing outpatient cath set up sometime soon, can you please help assist with this? He is on HD currently, nephrology saying okay to cath whenever, discharging from hospital today. Thank you Eloina documented in this encounter Plan of Treatment Upcoming Encounters Date Type Department Care Team (Latest Contact Info) Description 12/03/2024 7:59 AM CDT Hospital Encounter [facility] Cardiac Staff Developer [address] [place] [id number] Paty Vazquez DO [address] [facility] [address] [place] [id number] Heart failure (CMS/HCC) 12/03/2024 7:59 AM CDT - 12/03/2024 8:55 AM CDT Surgery [facility] Cardiac Staff Developer [address] [place] [address] Paty Vazquez DO [address] [facility] [address] [place] [phone] Left heart cath 12/11/2024 8:00 AM CDT Office Visit [facility] [address] [phone] Paty Zepeda MD [address] [phone] Scheduled Procedures Name Priority Associated Diagnoses Date/Ti il LEFT HEART CATHETERIZATION Heart failure (CMS/HCC) 12/03/2024 7:59 AM CDT documented as of this encounter Visit Diagnoses Not on filedocumented in this encounter
--- OUTSIDE RECORDS SUMMARY | 2024-11-24 14:52 | XMS_ITS | Clinical Summary ---
Author Organization [facility] [facility] [place] Address [address] [place] [address] Phone Care Team Providers Care Terminal System Operator Name Role Phone Unavailable Primary Care Provider Unavailabl e Allergies Active Allergy Reactions Criticality Noted Date Comments Ketorolac Nausea and Vomiting Medium 01/23/2012 Shrimp Anaphylaxis High 10/08/2024 Medications albuterol sulfate HFA 90 mcg/actuation aerosol inhaler Take 2 Puffs by inhalation see administration instructions. 06/09/19 25 Active aspirin (ECOTRIN EC) 81 mg Tablet, Delayed Release (E.C.) Take 81 mg by mouth daily. Active atorvastatin (LIPITOR) 40 mg tablet Take 40 mg by mouth daily. 02/01/20 22 Active carBAMazepine (TEGretol) 200 mg tablet Take 200 mg by mouth daily. 03/26/20 24 Active doxazosin (CARDURA) 8 mg tablet Take 8 mg by mouth daily at bedtime. 07/30/19 25 Active escitalopram oxalate (LEXAPRO) 10 mg tablet Take 10 mg by mouth daily. 02/21/20 24 Active gabapentin (NEURONTIN) 100 mg capsule Take 100 mg by mouth daily. 08/15/19 25 Active pantoprazole (PROTONIX) 40 mg Tablet, Delayed Release (E.C.) Take 40 mg by mouth daily. 07/31/19 25 Active loperamide (IMODIUM) 2 mg capsule Take 2 mg by mouth 4 times daily as needed for Diarrhea/Loose Stools. Active itraconazole (SPORANOX) 10 mg/mL solution Take 10 mL (100 mg) by mouth 2 times daily. Home med 1 mL 10/18/19 25 Active insulin glargine (LANTUS) 100 unit/mL pen syringe Inject 10 Units by subcutaneous injection daily with breakfast. 15 mL 10/19/19 25 025 Active insulin lispro (HumaLOG,ADMEL OG) 100 unit/mL pen syringe Inject 0-12 Units by subcutaneous injection 4 times daily with meals and at bedtime. CONTACT PHYSICIAN/FARIHA - If blood sugar greater than 250 mg/dL - If blood sugar greater than 180 mg/dL for two consecutive readings - If insulin administration frequency and POC glucose frequency does not match Medium-Dose NPO Correction: Less than or equal to 180 = no correctional insulin 181 - 200 = give and/or add 2 units 201 - 250 = give and/or add 4 units 251 - 300 = give and/or add 6 units 301 - 350 = give and/or add 8 units 351 - 400 = give and/or add 10 units 401 and greater = give and/or add 12 units 15 mL 10/18/19 25 Active Blood-Glucose Meter (OneTouch Verio Flex meter) Check blood glucose 3 times daily before meals 100 Each 10/18/19 25 Active blood sugar diagnostic (OneTouch Verio test strips) Strip Check blood glucose 3 times daily before meals 100 Each 10/18/19 25 Active lancets 30 gauge Check blood glucose 3 times daily before meals 100 Each 10/18/19 25 Active Insulin [place], Disposable, (Comfort EZ Pen [place]) 32 gauge x 5/32 Needle Inject insulin 3 times daily before meals 100 Each 10/18/19 25 Active carvediloL (COREG) 25 mg tablet Take 1 Tablet (25 mg) by mouth 2 times daily. 60 Tablet 10/18/19 25 025 hydrALAZINE (APRESOLINE) 25 mg tablet Take 1 Tablet (25 mg) by mouth every 8 hours. 90 Tablet 10/18/19 25 025 Active Problems Problem Noted Date Diagnosed Date Heart failure 11/18/2024 Acute kidney injury 10/12/2024 NSTEMI (non-ST elevated myocardial infarction) 0 10/10/2024 Stage 4 chronic kidney disease 10/09/2024 Anasarca 10/08/2024 Scrotal swelling 10/08/2024 Insulin dependent type 2 diabetes mellitus 10/08 Essential hypertension 10/08/2024 HLD (hyperlipidemia) 10/08/2024 Acute on chronic diastolic congestive heart fail ure 10/08/2024 Obesity 10/08/2024 Anemia 10/08/2024 Hypervolemia 10/08/2024 Encounters Date Type Department Care Team Description 11/18/2024 Prep for Surgery [facility] [address] [place] [address] Paty Vazquez DO Heart failure, unspecified HF chronicity, unspecified heart failure type ([facility]) (Primary Dx); NSTEMI (non-ST elevated myocardial infarction) ([facility]); Insulin dependent type 2 diabetes mellitus ([facility]) 11/11/2024 External Device Data [facility] ABSTRACTION Provider, Abstract 11/10/2024 External Device Data [facility] ABSTRACTION Provider, Abstract 11/10/2024 External Device Data [facility]STRACTION Provider, Abstract 11/03/2024 External Device Data [facility] ABSTRACTION Provider, Abstract 10/20/2024 Telephone [facility] [address] [place] [phone] Eloina Carvajal NP instructions for cath. ( ) 10/15/2024 External Device Data [facility] ABSTRACTION Provider, Abstract 10/14/2024 External Device Data [place] ABSTRACTION Provider, Abstract 10/14/2024 External Device Data [place] ABSTRACTION Provider, Abstract 10/14/2024 External Device Data [facility] ABSTRACTION Provider, Abstract 10/13/2024 External Device Data [facility] ABSTRACTION Provider, Abstract 10/07/2024 11:32 PM CDT - 10/17/2024 4:56 PM CDT Hospital Encounter [facility] 4[address] Cardiac [address] [place] [address] Jaren Recinos MD Abbas, MD Kyleigh Cagle, MD Orlando Mcgrath, Moiz Oden MD Acute on chronic diastolic congestive heart failure ([facility]) Discharge Disposition: Home or Self Care 10/07/2024 Travel 09/15/2024 External Device Data STL ABSTRACTION Provider, Abstract 09/15/2024 External Device Data ST[place] ABSTRACTION Provider, Abstract 09/15/2024 External Device Data [facility] ABSTRACTION Provider, Abstract from Last 3 Months Social History Tobacco Use Types Packs/Day Years Used Date Smoking Tobacco: Never Tobacco Cessation:Counseling Given: Not Answered Feeling Safe Answer Date Recorded Are you [...] on file Sexual Orientation Not on file Last Filed Vital Signs Vital Sign Reading Time Taken Comments Blood Pressure 154/84 10/17/2024 11:16 AM CDT Pulse 78 10/17/2024 11:16 AM CDT Temperature 36.8 C (98.2 F) 10/17/2024 11:16 AM CDT Respiratory Rate 24 10/17/2024 11:0 0 AM CDT Oxygen Saturation 96% 10/17/2024 11: 16 AM CDT Inhaled Oxygen Concentration - - Weight 101.3 kg (223 lb 5.2 oz) 10/17/2024 4:36 AM CDT Height 172.7 cm (5' 8 ) 10/08/2024 2:34 PM CDT Body Mass Index 33.96 10/08/2024 2:34 PM CDT Plan of Treatment Upcoming Encounters Date Type Department Care Team (Latest Contact Info) Description 12/03/2024 7:59 AM CDT Hospital Encounter [facility] Cardiac Windshield Technician [address] [place] [address] Paty Vazquez, 1235 [facility] [address] [place] [phone] Heart failure (CMS/HCC) 12/03/2024 7:59 AM CDT - 12/03/2024 8:55 AM CDT Surgery [facility] Cardiac Windshield Technician [address] [place] [address] Paty Diaz DO [address] [place] [address] Left heart cath 12/11/2024 8:00 AM CDT Office Visit [address] [address] Paty Zepeda MD [address] [address] Scheduled Procedures Name Priority Associated Diagnoses Date/Ti me LEFT HEART CATHETERIZATION Heart failure (CMS/HCC) 12/03/2024 7:59 AM CDT Health Maintenance Due Date Last Done Comments DIABETES ANNUAL RETINAL EXAM 1987 DIABETES MICROALBUMIN ANNUAL SCREEN 1987 LDL CHOLESTEROL ANNUAL 1987 HEPATITIS B VACCINES (1 of 3 - 19+ 3-dose series) 1988 FIT-DNA Q 3 years 2014 FIT/FOBT Q 1 year 2014 Flex Sig/CT Colonography Q 5 years 2014 ZOSTER VACCINE (1 of 2) 2019 DIABETES ANNUAL FOOT EXAM 10/18/2023 10/17/2022 INFLUENZA VACCINE (#1) 2023 DIABETES HBA1C Q 6 MONTHS 04/19/2025 10/17/2024, DTAP/TDAP/TD VACCINES (2 - T d or Tdap) 01/23/2029 01/23/2019 COLORECTAL SCREENING 07/30/2034 07/30/2024, 07/30/2024, 07/03/2022 Colorectal Cancer Screening 07/30/2034 Medical Devices Implanted Type Area Computer Systems Integrator Device Identifier Shelf Expiration Date Model / Serial / Lot Cath Dialysis Glidepath 14.5fr 23cm [facility] [id number] - [id number] Implanted:Qty: 1 on 10/13/2024 by Wen Evans MD at [facility] Catheter Right: Chest Wall BARD ASHLEY VASC [id number] 02/23/2026 [id number] / / [id number] Procedures Procedure Name Priority Date/Time Associated Diagnosis Comments TELEMETRY REPORT 10/19/2024 3:57 AM CDT POC GLUCOSE Routine 10/17/2024 11:17 AM CDT POC GLUCOSE Routine 10/17/2024 7:47 AM CDT HEMOGLOBIN A1C Routine 10/17/2024 7:08 AM CDT CBC WITH DIFFERENTIAL Routine 10/17/2024 7:08 AM CDT MAGNESIUM LEVEL Routine 10/17/2024 2:19 AM CDT RENAL FUNCTION PANEL Routine 10/17/2024 2:19 AM CDT POC GLUCOSE Routine 10/16/2024 7:53 PM CDT POC GLUCOSE Routine 10/16/2024 4:21 PM CDT POC GLUCOSE Routine 10/16/2024 11:28 AM CDT MAGNESIUM LEVEL Routine 10/16/2024 10:46 AM CDT RENAL FUNCTION PANEL Routine 10/16/2024 10:46 AM CDT POC GLUCOSE Routine 10/16/2024 7:20 AM CDT POC GLUCOSE Routine 10/15/2024 9:33 PM CDT POC GLUCOSE Routine 10/15/2024 5:10 PM CDT POC GLUCOSE Routine 10/15/2024 11:40 AM CDT POC GLUCOSE Routine 10/15/2024 7:45 AM CDT CBC WITH DIFFERENTIAL Routine 10/15/2024 6:51 AM CDT MAGNESIUM LEVEL Routine 10/15/2024 6:51 AM CDT RENAL FUNCTION PANEL Routine 10/15/2024 6:51 AM CDT POC GLUCOSE Routine 10/14/2024 9:32 PM CDT POC GLUCOSE Routine 10/14/2024 5:10 PM CDT POC GLUCOSE Routine 10/14/2024 11:30 AM CDT POC GLUCOSE Routine 10/14/2024 7:27 AM CDT PHOSPHORUS Routine 10/14/2024 5:28 AM CDT COMPREHENSIVE METABOLIC PANEL Routine 10/14/2024 5:28 AM CDT MAGNESIUM LEVEL Routine 10/14/2024 5:28 AM CDT POC GLUCOSE Routine 10/13/2024 9:15 PM CDT BASIC METABOLIC PANEL Routine 10/13/2024 6:29 PM CDT POC GLUCOSE Routine 10/13/2024 5:13 PM CDT POC GLUCOSE Routine 10/13/2024 12:21 PM CDT IR VENOUS ACCESS Routine 10/13/2024 9:02 AM CDT POC GLUCOSE Routine 10/13/2024 7:39 AM CDT CBC WITH DIFFERENTIAL Routine 10/13/2024 3:34 AM CDT MAGNESIUM LEVEL Routine 10/13/2024 3:34 AM CDT RENAL FUNCTION PANEL Routine 10/13/2024 3:34 AM CDT POC GLUCOSE Routine 10/12/2024 9:25 PM CDT BASIC METABOLIC PANEL Routine 10/12/2024 6:19 PM CDT POC GLUCOSE Routine 10/12/2024 5:05 PM CDT US RENAL Routine 10/12/2024 2:27 PM CDT POC GLUCOSE Routine 10/12/2024 11:29 AM CDT PROTIME-INR Routine 10/12/2024 10:24 AM CDT CBC WITH DIFFERENTIAL Routine 10/12/2024 10:23 AM CDT ACUTE HEPATITIS PANEL Routine 10/12/2024 10:23 AM CDT POC GLUCOSE Routine 10/12/2024 7:24 AM CDT IMMUNOFIXATION Routine 10/12/2024 6:03 AM CDT BRAIN NATRIURETIC PEPTIDE, BNP OR PROBNP Routine 10/12/2024 6:03 AM CDT PROTEIN ELECTROPHORESIS W/REFLEX,SERUM Routine 10/12/2024 6:03 AM CDT MAGNESIUM LEVEL Routine 10/12/2024 6:03 AM CDT RENAL FUNCTION PANEL Routine 10/12/2024 6:03 AM CDT RENAL FUNCTION PANEL Routine 10/11/2024 8:25 PM CDT POC GLUCOSE Routine 10/11/2024 7:40 PM CDT POC GLUCOSE Routine 10/11/2024 4:05 PM CDT POC GLUCOSE Routine 10/11/2024 12:05 PM CDT POC GLUCOSE Routine 10/11/2024 7:12 AM CDT CBC WITH DIFFERENTIAL Routine 10/11/2024 4:40 AM CDT MAGNESIUM LEVEL Routine 10/11/2024 4:40 AM CDT RENAL FUNCTION PANEL Routine 10/11/2024 4:40 AM CDT BASIC METABOLIC PANEL Routine 10/10/2024 6:35 PM CDT POC GLUCOSE Routine 10/10/2024 4:50 PM CDT POC GLUCOSE Routine 10/10/2024 10:43 AM CDT POC GLUCOSE Routine 10/10/2024 7:16 AM CDT POC GLUCOSE Routine 10/10/2024 4:18 AM CDT MAGNESIUM LEVEL Routine 10/10/2024 4:17 AM CDT RENAL FUNCTION PANEL Routine 10/10/2024 4:17 AM CDT POC GLUCOSE Routine 10/09/2024 8:21 PM CDT POC GLUCOSE Routine 10/09/2024 5:05 PM CDT POC GLUCOSE Routine 10/09/2024 7:11 AM CDT MAGNESIUM LEVEL Routine 10/09/2024 5:52 AM CDT RENAL FUNCTION PANEL Routine 10/09/2024 5:52 AM CDT CBC WITH DIFFERENTIAL Routine 10/09/2024 5:52 AM CDT POC GLUCOSE Routine 10/09/2024 5:07 AM CDT POC GLUCOSE Routine 10/09/2024 1:49 AM CDT POC GLUCOSE Routine 10/08/2024 10:06 PM CDT EXTRA TUBE (URINE MELENDEZ) Stat 10/09/19 7:39 PM CDT SODIUM, RANDOM URINE Stat 10/08/2024 7:39 PM CDT PROTEIN , RANDOM URINE Stat 7:39 PM CDT URINALYSIS W/REFLEX MICROSCOPIC Stat 10/08/2024 7:39 PM CDT BASIC METABOLIC PANEL Routine 10/08/2024 7:36 PM CDT POC GLUCOSE Routine 10/08/2024 3:24 PM CDT UNFRACTIONATED HEPARIN ACTIVITY Stat 10/08/2024 1:59 PM CDT ECHO COMPLETE Stat 10/08/2024 10:09 AM CDT UNFRACTIONATED HEPARIN ACTIVITY Stat 10/08/2024 8:03 AM CDT TROPONIN 6 HR, 5TH GEN Timed Study 5:59 AM CDT IRON, TIBC, AND PERCENT SATURATION Stat 10/08/2024 3:41 AM CDT FERRITIN Stat 10/08/2024 3:41 AM CDT TROPONIN 2 HR, 5TH GEN Timed Study 5 3:41 AM CDT UNFRACTIONATED HEPARIN ACTIVITY Stat 10/08/2024 1:44 AM CDT PROTIME-INR Stat 10/08/2024 1:44 AM CDT PTT Stat 10/08/2024 1:44 AM CDT CBC WITH DIFFERENTIAL Stat 10/08/2024 1:44 AM CDT HEPATIC FUNCTION PANEL Stat 11:48 PM CDT TROPONIN BASELINE, 5TH GEN Stat 10/07/2024 11:48 PM CDT BRAIN NATRIURETIC PEPTIDE, BNP OR PROBNP Stat 10/07/2024 11:48 PM CDT BASIC METABOLIC PANEL Stat 10/07/2024 11:48 PM CDT XR CHEST PA OR AP 1 VW Stat 11:41 PM CDT EKG 12-LEAD Stat 10/07/2024 9:54 PM CDT from Last 3 Months Results * TELEMETRY REPORT (10/19/2024 3:57 AM CDT) us Provider Scanning ECG ORDERABLES Final Result * (ABNORMAL) POC GLUCOSE (10/17/2024 11:17 AM CDT) Only the most recent of37 resultswithin the time period is included. GLUCOSE POC 163(H) 74 - 99 mg/dL 10/17/2024 11:17 AM CDT [facility] SPECIMEN SOURCE, GLUCOSE POC Capillary 10/17/2024 11:17 AM CDT [facility] Blood, whole 10/17/2024 11:1 7 AM CDT 10/17/2024 11:39 AM CDT us Moiz Perry MD POINT OF CARE TESTING Final Result [facility] CLIA # [id number] Pending sale to [facility] [address] [place], [place] [address] * (ABNORMAL) CBC WITH DIFFERENTIAL (10/17/2024 7:08 AM CDT) Only the most recent of7 resultswithin the time period is included. [facility] WBC 7.3 4.8 - 10.8 K/uL 10/17/2024 7:18 AM [facility] RBC 2.78(L) 4.60 - 6.20 M/uL 10/17/2024 7:18 AM [facility] HEMOGLOBIN 7.5(L) 14.0 - 18.0 g/dL 10/17/2024 7:18 AM [facility] HEMATOCRIT 25.0(L) 41.0 - 53.0 % 10/17/2024 7:18 AM [facility] MCV 89.9 84.0 - 103.0 fL 10/17/2024 7:18 AM [facility] MCH 27.0 27.0 - 34.0 pg 10/17/2024 7:18 AM [facility] MCHC 30.0 30.0 - 35.0 g/dL 10/17/2024 7:18 AM [facility] PLATELETS 143 140 - 440 K/uL 10/17/2024 7:18 AM [facility] MPV 10.5 8.9 - 12.8 fL 10/17/2024 7:18 AM [facility] RDW 15.8(H) 11.0 - 14.5 % 10/17/2024 7:18 AM [facility] RDW-STDEV 52.1 37.0 - 54.0 fL 10/17/2024 7:18 AM [facility] NEUTROPHILS 69 42 - 75 % 10/17/2024 7:18 AM [facility] LYMPHOCYTES 22(L) 24 - 44 % 10/17/2024 7:18 AM [facility] MONOCYTES 7 2 - 10 % 10/17/2024 7:18 AM [facility] EOSINOPHILS 2 0 - 7 % 10/17/2024 7:18 AM [facility] BASOPHILS 0 0 - 1 % 10/17/2024 7:18 AM [facility] IMMATURE GRANULOCYTES 1 0 - 2 % 10/17/2024 7:18 AM CDT [facility] NEUTROPHIL ABSOLUTE 5.02 2.00 - 8.00 K/uL 10/17/2024 7:18 AM CDT [facility] LYMPHOCYTE ABSOLUTE 1.60 1.20 - 4.00 K/uL 10/17/2024 7:18 AM CDT [facility] MONOCYTE ABSOLUTE 0.47 0.10 - 0.60 K/uL 10/17/2024 7:18 AM CDT [facility] EOSINOPHIL ABSOLUTE 0.11 0.00 - 0.70 K/uL 10/17/2024 7:18 AM CDT [facility] BASOPHILS ABSOLUTE 0.02 0.00 - 0.20 K/uL 10/17/2024 7:18 AM CDT [facility] IMMATURE GRANULOCYTES ABSOLUTE 0.06 0.00 - 0.10 K/uL 10/17/2024 7:18 AM CDT [facility] SMEAR REVIEWED: NA - Not Applicable 10/17/2024 7:18 AM T [facility] Blood Venipuncture / Unknown 10/17/2024 7:08 AM CDT 10/17/2024 7:13 AM CDT us Efren Perez MD HEMATOLOGY ORDERABLES Final Result [facility] CLIA # [id number] [address] [place] [address] * (ABNORMAL) HEMOGLOBIN A1C (10/17/2024 7:08 AM CDT) HEMOGLOBIN A1C 7.1(H) <=5.6 % 10/18/2024 8:48 AM CDT [facility] EST. AVG GLUCOSE, A1C 157 mg/dL 10/18/2024 8:48 AM CDT [facility] Blood Venipuncture / Unknown 10/17/2024 7:08 AM CDT 10/17/2024 7:13 AM CDT Narrative [facility] - 10/18/2024 8:48 AM CDT HGB A1C INTERPRETATION NORMAL: <5.7% PRE-DIABETES: 5.7 - 6.4% DIABETES: 6.5% OR GREATER Moiz Perry MD CHEMISTRY ORDERABLES Final R esult Performing Organization Address City/[facility] Co de Phone Number [facility] CLIA # [id number] [address] [place] [id number] * MAGNESIUM LEVEL (10/17/2024 2:19 AM CDT) Only the most recent of9 resultswithin the time period is included. MAGNESIUM 1.9 1.6 - 2.6 mg/dL 10/17/2024 3:02 AM CDT [facility] Blood Venipuncture / Unknown 10/17/2024 2:19 AM CDT 10/17/2024 2:29 AM CDT Caitlyn IBRAHIM CHEMISTRY ORDERABLES Final Result Performing Organization Address [facility] de Phone Number [facility] CLIA # [id number] [address] [place] [address] * (ABNORMAL) RENAL FUNCTION PANEL (10/17/2024 2:19 AM CDT) Only the most recent of9 resultswithin the time period is included. SODIUM 137 136 - 145 mmol/L 10/17/2024 3:02 AM CDT [facility] POTASSIUM 3.9 3.5 - 5.1 mmol/L 10/17/2024 3:02 AM CDT [facility] CHLORIDE 101 98 - 107 mmol/L 10/17/2024 3:02 AM CDT [facility] CO2 23 22 - 29 mmol/L 10/17/2024 3:02 AM T [facility] CALCIUM 8.2(L) 8.6 - 10.0 mg/dL 10/17/2024 3:02 AM [facility] BUN 29(H) 6 - 20 mg/dL 10/17/2024 3:02 AM [facility] CREATININE 2.22(H) 0.67 - 1.17 mg/dL 10/17/2024 3:02 AM T [facility] GLUCOSE 154(H) 74 - 99 mg/dL 10/17/2024 3:02 AM [facility] ALBUMIN 3.0(L) 3.5 - 5.2 g/dL 10/17/2024 3:02 AM [facility] PHOSPHORUS 2.3(L) 2.5 - 4.5 mg/dL 10/17/2024 3:02 AM [facility] GFR 34(L) >=60 mL/min/1. 73 sq meter 10/17/2024 3:02 AM [facility] Comment:eGFR calculated with 2020 CKD-EPI equation. Vegetarian diet, extremely high or low muscle mass, and may affect results. Cystatin C with Glomerular Filtration Rate is a suitable alternative for these patients. ANION GAP 13 9 - 20 mmol/L 10/17/2024 3:02 AM [facility] Blood Venipuncture / Unknown 10/17/2024 2:19 AM CDT 10/17/2024 2:29 AM CDT us Caitlyn Doty REPORT SPECIALIST CHEMISTRY ORDERABLES Final Result [facility] CLIA # [id number] [address] [place] [address] [place], [place] [id number] * PHOSPHORUS (10/14/2024 5:28 AM CDT) PHOSPHORUS 4.0 2.5 - 4.5 mg/dL 10/14/2024 6:30 AM T [facility] Blood Venipuncture / Unknown 10/14/2024 5:28 AM CDT 10/14/2024 5:48 AM CDT Caitlyn Doty REPORT SPECIALIST CHEMISTRY ORDERABLES Final Result [facility] CLIA # [id number] [address] [address] [place] [address] * (ABNORMAL) COMPREHENSIVE METABOLIC PANEL (10/14/2024 5:28 AM CDT) SODIUM 134(L) 136 - 145 mmol/L 10/14/2024 6:30 AM T [facility] POTASSIUM 4.3 3.5 - 5.1 mmol/L 10/14/2024 6:30 AM T [facility] CHLORIDE 96(L) 98 - 107 mmol/L 10/14/2024 6:30 AM T [facility] CO2 25 22 - 29 mmol/L 10/14/2024 6:30 AM T [facility] CALCIUM 8.4(L) 8.6 - 10.0 mg/dL 10/14/2024 6:30 AM T [facility] BUN 66(H) 6 - 20 mg/dL 10/14/2024 6:30 AM T [facility] CREATININE 4.07(H) 0.67 - 1.17 mg/dL 10/14/2024 6:30 AM T [facility] GLUCOSE 218(H) 74 - 99 mg/dL 10/14/2024 6:30 AM T [facility] TOTAL PROTEIN 7.3 6.4 - 8.3 g/dL 10/14/2024 6:30 AM T [facility] ALBUMIN 3.1(L) 3.5 - 5.2 g/dL 10/14/2024 6:30 AM T [facility] BILIRUBIN TOTAL 0.5 0.0 - 1.0 mg/dL 10/14/2024 6:30 AM CDT [facility] ALKALINE PHOSPHATASE 203(H) 40 - 129 U/L 10/14/2024 6:30 AM CDT [facility] AST 19 10 - 50 U/L 10/14/2024 6:30 AM T [facility] ALT 6 <=50 U/L 10/14/2024 6:30 AM T [facility] GFR 16(L) >=60 mL/min/1. 73 sq meter 10/14/2024 6:30 AM T [facility] Comment:eGFR calculated with 2020 CKD-EPI equation. Vegetarian diet, extremely high or low muscle mass, and may affect results. Cystatin C with Glomerular Filtration Rate is a suitable alternative for these patients. ANION GAP 13 9 - 20 mmol/L 10/14/2024 6:30 AM T [facility] Blood Venipuncture / Unknown 10/14/2024 5:28 AM CDT 10/14/2024 5:48 AM CDT Moiz Perry MD CHEMISTRY ORDERABLES Final [id number] [address] [place] [address] * (ABNORMAL) BASIC METABOLIC PANEL (10/13/2024 6:29 PM CDT) Only the most recent of5 resultswithin the time period is included. SODIUM 134(L) 136 - 145 mmol/L 10/13/2024 7:26 PM CDT [facility] POTASSIUM 4.3 3.5 - 5.1 mmol/L 10/13/2024 7:26 PM CDT [facility] CHLORIDE 95(L) 98 - 107 mmol/L 10/13/2024 7:26 PM T [facility] CO2 25 22 - 29 mmol/L 10/13/2024 7:26 PM CDT [facility] CALCIUM 8.5(L) 8.6 - 10.0 mg/dL 10/13/2024 7:26 PM CDT [facility] BUN 61(H) 6 - 20 mg/dL 10/13/2024 7:26 PM CDT [facility] CREATININE 4.23(H) 0.67 - 1.17 mg/dL 10/13/2024 7:26 PM CDT [facility] GLUCOSE 214(H) 74 - 99 mg/dL 10/13/2024 7:26 PM T [facility] GFR 16(L) >=60 mL/min/1. 73 sq meter 10/13/2024 7:26 PM CDT [facility] Comment:eGFR calculated with 2020 CKD-EPI equation. Vegetarian diet, extremely high or low muscle mass, and may affect results. Cystatin C with Glomerular Filtration Rate is a suitable alternative for these patients. ANION GAP 14 9 - 20 mmol/L 10/13/2024 7:26 PM CDT [facility] Blood Venipuncture / Unknown 10/13/2024 6:29 PM CDT 10/13/2024 6:50 PM CDT Caitlyn Doty REPORT SPECIALIST CHEMISTRY ORDERABLES Final Result [facility] CLIA # [id number] [address] [place] [address] * IR VENOUS ACCESS (10/13/2024 9:02 AM CDT) Anatomical Region Laterality Modality X-Ray Angiograph y 10/13/2024 9:02 AM CDT Impressions 10/13/2024 2:06 PM CDT IMPRESSION: Please see below. Right IJ 23 cm Cuff to Tip [employer] Tunneled Dialysis Catheter Placement With Sonographic and Fluoroscopic Guidance 10/13/2024 9:02 AM Reason For Exam: The patient is a 54-year-old male with REBECCA on CKD requiring dialysis. Diagnosis: NSTEMI (non-ST elevated myocardial infarction) (CMS/HCC); Hypervolemia, unspecified hypervolemia type. Comparisons: None The procedure and its risks, benefits and alternatives were explained to the patient. Consent to proceed was obtained. Monitored IV conscious sedation was provided with 2 mg Versed and 50 mcg fentanyl. Sedation time was 15 minutes. The right neck and chest were prepped and draped in the usual fashion. Local anesthesia was achieved with lidocaine. Ultrasound evaluation of potential access sites was performed. After successfully identifying a patent vessel, ultrasound guidance was used to puncture the right internal jugular vein. A permanent recording was created for the patient record. A 5 Belgian dilator and J-wire were placed. Lidocaine with epinephrine was used to achieve anesthesia along the course of the tunnel. The tunnel was formed. The catheter was pulled through. The right IJ puncture site was dilated and the peel-away sheath with a hemostatic valve was placed. The catheter was advanced through the sheath and the sheath was removed. Under fluoroscopy, the catheter was positioned with the distal tip in the mid to upper right atrium. Both ports flushed and aspirated easily. The hub was secured in place with 2-0 nylon suture. A spot radiograph was obtained. Estimated blood loss is minimal. The patient tolerated the procedure well and there were no immediate postprocedure complications. Impression: Successful right IJ 23 cm cuff to tip [employer] tunneled Dialysis catheter placement. The catheter is ready for immediate use. Narrative Procedure Note Wen Evans MD - 10/13/2024 IMPRESSION: Please see below. Right IJ 23 cm Cuff to Tip [employer] Tunneled Dialysis Catheter Placement With Sonographic and Fluoroscopic Guidance 10/13/2024 9:02 AM Reason For Exam: The patient is a 54-year-old male with REBECCA on CKD requiring dialysis. Diagnosis: NSTEMI (non-ST elevated myocardial infarction) (CMS/HCC); Hypervolemia, unspecified hypervolemia type. Comparisons: None The procedure and its risks, benefits and alternatives were explained to the patient. Consent to proceed was obtained. Monitored IV conscious sedation was provided with 2 mg Versed and 50 mcg fentanyl. Sedation time was 15 minutes. The right neck and chest were prepped and draped in the usual fashion. Local anesthesia was achieved with lidocaine. Ultrasound evaluation of potential access sites was performed. After successfully identifying a patent vessel, ultrasound guidance was used to puncture the right internal jugular vein. A permanent recording was created for the patient record. A 5 Belgian dilator and J-wire were placed. Lidocaine with epinephrine was used to achieve anesthesia along the course of the tunnel. The tunnel was formed. The catheter was pulled through. The right IJ puncture site was dilated and the peel-away sheath with a hemostatic valve was placed. The catheter was advanced through the sheath and the sheath was removed. Under fluoroscopy, the catheter was positioned with the distal tip in the mid to upper right atrium. Both ports flushed and aspirated easily. The hub was secured in place with 2-0 nylon suture. A spot radiograph was obtained. Estimated blood loss is minimal. The patient tolerated the procedure well and there were no immediate postprocedure complications. Impression: Successful right IJ 23 cm cuff to tip [employer] tunneled Dialysis catheter placement. The catheter is ready for immediate use. Efren Perez MD IR ORDERABLES Final Result * US RENAL (10/12/2024 2:27 PM CDT) Anatomical Region Laterality Modality Abdomen Ultrasound 10/12/2024 2:27 PM CDT Impressions 10/12/2024 2:43 PM CDT IMPRESSION: Please see below. Exam: US RENAL Date/Time of Exam: 10/12/2024 2:27 PM Reason For Exam: Acute Renal Failure. Diagnosis: NSTEMI (non-ST elevated myocardial infarction) ([facility] Hypervolemia, unspecified hypervolemia type. Findings: There are no comparisons. Right kidney: Unremarkable. The right kidney measures 11.7 cm in length. The right kidney is smooth in contour. The cortex is of normal thickness and echo content. No cystic or solid lesions or calculi are noted. There is no hydronephrosis. Left kidney: Unremarkable. The left kidney measures 11.7 cm in length. The left kidney is smooth in contour. The cortex is of normal thickness and echo content. No cystic or solid lesions or calculi are noted. There is no hydronephrosis. Ashley splenic fluid with body wall edema There is body wall edema. There is a trace amount of perisplenic ascites. IMPRESSION: 1. Both kidneys are unremarkable in appearance. 2. Bilateral body wall edema. 3. Trace amount of perisplenic ascites Narrative Procedure Note Wen Evans MD - 10/12/2024 IMPRESSION: Please see below. Exam: US RENAL Date/Time of Exam: 10/12/2024 2:27 PM Reason For Exam: Acute Renal Failure. Diagnosis: NSTEMI (non-ST elevated myocardial infarction) (CMS/HCC); Hypervolemia, unspecified hypervolemia type. Findings: There are no comparisons. Right kidney: Unremarkable. The right kidney measures 11.7 cm in length. The right kidney is smooth in contour. The cortex is of normal thickness and echo content. No cystic or solid lesions or calculi are noted. There is no hydronephrosis. Left kidney: Unremarkable. The left kidney measures 11.7 cm in length. The left kidney is smooth in contour. The cortex is of normal thickness and echo content. No cystic or solid lesions or calculi are noted. There is no hydronephrosis. Ashley splenic fluid with body wall edema There is body wall edema. There is a trace amount of perisplenic ascites. IMPRESSION: 1. Both kidneys are unremarkable in appearance. 2. Bilateral body wall edema. 3. Trace amount of perisplenic ascites us Efren Perez MD ORDERABLES Final Result * (ABNORMAL) PROTIME-INR (10/12/2024 10:24 AM CDT) Only the most recent of2 resultswithin the time period is included. PROTIME 16.4(H) 12.7 - 14.9 Seconds 10/12/2024 10:47 AM CDT [facility] INR 1.3(H) 0.8 - 1.2 10/12/2024 10:47 AM CDT [facility] [place] [facility] Blood Venipuncture / Unknown 10/12/2024 10:24 AM CDT 10/12/2024 10:33 AM CDT Narrative [facility] - 10/12/2024 10:47 AM CDT Expected Values for INR: DVT/PE Goal INR 2.5; range 2.0 - 3.0 Valve Replacement Tissue Goal INR 2.5; range 2.0 - 3.0 Valve Replacement Mechanical Goal INR 3.0; range 2.5 - 3.5 POST-IA Goal INR 2.5; range 2.0 - 3.0 or Goal INR 3.0; range 2.5 - 3.5 Atrial Fibrillation Goal INR 2.5; range 2.0 - 3.0 Ischemic Stroke Goal INR 2.5; range 2.0 - 3.0 Efren Perez MD HEMATOLOGY ORDERABLES Final Result [facility] # [id number] Pending sale to [facility] [address] [place] [address] * ACUTE HEPATITIS PANEL (10/12/2024 10:23 AM CDT) Pathologist [facility] HEPATITIS B SURFACE AG NON-REACT LITO Non-react lito 10/12/2024 12:34 PM CDT [facility] Comment:A non-reactive test result does not exclude the possibility of exposure to or infection with hepatitis B. HEPATITIS B CORE IGM NON-REACT LITO Non-react lito 10/12/2024 12:34 PM CDT [facility] Comment:IgM antibodies to HB c were not detected; does not exclude the possibility of exposure to HBV. HEPATITIS A IGM Non-react lito Non-react lito 10/12/2024 12:34 PM CDT [facility] Comment:A negative test resu lt does not exclude the possibility of exposure to Hepatitis A virus. HEPATITIS C AB NON-REACT LITO Non-react lito 10/12/2024 12:34 PM CDT [facility] Comment:Antibodies to HCV we re not detected, does not exclude the possibility of exposure to HCV. Blood Venipuncture / Unknown 10/12/2024 10:23 AM CDT 10/12/2024 10:38 AM CDT Efren Perez MD CHEMISTRY ORDERABLES Final R esult Performing Organization Address [facility]/ZIP Co de Phone Number [facility] CLIA # [id number] [address] [place] [address] * IMMUNOFIXATION (10/12/2024 6:03 AM CDT) [facility] IMMUNOFIXATION INTERP See Interpretation Below 10/12/2024 3:11 PM CDT [facility] Comment: Normal polyclonal immunoglobulins. Interpreted by: Tiffanie Laura MD Blood Venipuncture / Unknown 10/12/2024 6:03 AM CDT 10/12/2024 6:24 AM CDT Efren Perez MD CHEMISTRY ORDERABLES Final R esult Performing Organization Address [facility] Co de Phone Number [facility] CLIA # [id number] Pending sale to [facility] [id number] * (ABNORMAL) PROTEIN ELECTROPHORESIS W/REFLEX,SERUM (10/12/2024 6:03 AM CDT) [facility] TOTAL PROTEIN 6.9 6.4 - 8.3 g/dL 10/12/2024 3:10 PM CDT [facility] ALBUMIN SPE 2.83(L) 3.50 - 5.20 g/dL 10/12/2024 3:10 PM CDT [facility] ALPHA 1 GLOBULIN SPE 0.51(H) 0.21 - 0.45 g/dL 10/12/2024 3:10 PM CDT [facility] ALPHA 2 GLOBULIN SPE 0.95 0.50 - 1.01 g/dL 10/12/2024 3:10 PM CDT [facility] BETA GLOBULIN 0.99 0.60 - 1.06 g/dL 10/12/2024 3:10 PM CDT [facility] GAMMA GLOBULIN 1.58(H) 0.60 - 1.33 g/dL 10/12/2024 3:10 PM CDT [facility] SPE INTERP See Interpretation Below 10/12/2024 3:10 PM CDT [facility] Comment: Immunofixation was reflexed in order to separate the beta fractions. No monoclonal protein band identified. Interpreted by: Tiffanie Laura MD Blood Venipuncture / Unknown 10/12/2024 6:03 AM CDT 10/12/2024 6:24 AM CDT Narrative [facility] - 10/12/2024 3:10 PM CDT Immunofixation ordered at [facility] per policy per pathologist. us Efren Perez MD CHEMISTRY ORDERABLES Final R esult [facility] CLIA # [id number] [address] [place] [address] * (ABNORMAL) BRAIN NATRIURETIC PEPTIDE, BNP OR PROBNP (10/12/2024 6:03 AM CDT) Only the most recent of2 resultswithin the time period is included. PROBNP, N TERMINAL 19,441(H) 0 - 125 pg/mL 10/12/2024 7:12 AM CDT [facility] Comment: INTERPRETIVE COMMENT based on diagnosis: Diagnostic NT pro-BNP cutoffs for Heart Failure in the absence of renal failure is suggested for the following ranges <75 years: <125 pg/mL >=75 years: <450 pg/mL Exclusionary rule out cut-point for Acute Decompensated Heart Failure(ADHF) All ages: <300 pg/mL Diagnostic NT pro-BNP cutoffs for Acute Decompensated Heart Failure(ADHF) in the absence of renal failure is suggested for the following ages <50 years: > 450 pg/mL 50-75 years: > 900 pg/mL >75 years: >1800 pg/mL Blood Venipuncture / Unknown 10/12/2024 6:03 AM CDT 10/12/2024 6:24 AM CDT us Efren Perez MD CHEMISTRY ORDERABLES Final R esult Performing Organization Address [facility] Co de Phone Number [facility] CLIA # [id number] [address] [address] [place] [address] * EXTRA TUBE (URINE MELENDEZ) (10/08/2024 7:39 PM CDT) Urine URINE SPECIMEN OBTAINED BY CLEAN CATCH PROCEDURE / Unknown Collection / Unknown 10/08/2024 7:39 PM CDT 10/08/2024 7:39 PM CDT us Caitlyn Doty REPORT SPECIALIST URINE ORDERABLES Final Resu lt Performing Organization Address [facility] de Phone Number [facility] CLIA # [id number] [address] [address] [place] [address] * SODIUM, RANDOM URINE (10/08/2024 7:39 PM CDT) SODIUM, URINE 117 mmol/L 10/08/2024 8:32 PM CDT [facility] Comment:Reference range not established Urine URINE SPECIMEN OBTAINED BY CLEAN CATCH PROCEDURE / Unknown Collection / Unknown 10/08/2024 7:39 PM CDT 10/08/2024 7:39 PM CDT us Caitlyn Doty REPORT SPECIALIST URINE ORDERABLES Final Resu lt Performing Organization Address [facility] Co de Phone Number [facility] CLIA # [id number] [address] [address] * (ABNORMAL) PROTEIN/CREATININE RATIO, URINE (10/08/2024 7:39 PM CDT) PROTEIN CONCENTRATION 37(H) 0 - 20 mg/dL 10/08/2024 8:32 PM CDT [facility] CREATININE, URINE 22.6(L) 40.0 - 278.0 mg/dL 10/08/2024 8:32 PM T [facility] Comment:Reference Range vari es with fluid intake and diet. PROTEIN/CREAT RATIO, URINE 1.64(H) 0.00 - 0.19 mg/mg Creatinine 10/08/2024 8:32 PM T [facility] Urine URINE SPECIMEN OBTAINED BY CLEAN CATCH PROCEDURE / Unknown Collection / Unknown 10/08/2024 7:39 PM CDT 10/08/2024 7:39 PM CDT Caitlyn Doty REPORT SPECIALIST URINE ORDERABLES Final Resu lt [facility] CLIA # [id number] [address] [place] [address] * (ABNORMAL) URINALYSIS WITH REFLEX MICROSCOPIC (10/08/2024 7:39 PM CDT) COLOR UA Colorless(A ) Pale to Dark Yellow 10/08/2024 7:42 PM [facility] CLARITY UA Clear Clear 10/08/2024 7:42 PM [facility] SPECIFIC GRAVITY UA 1.010 1.003 - 1.035 10/08/2024 7:42 PM T [facility] PH UA 6.5 5.0 - 8.0 10/08/2024 7:42 PM T [facility] LEUKOCYTE ESTERASE UA Negative Negative 10/08/2024 7:42 PM T [facility] NITRITE UA Negative Negative 10/08/2024 7:42 PM T [facility] PROTEIN UA Trace(A) Negative 10/08/2024 7:42 PM [facility] GLUCOSE UA 1+(A) Negative 10/08/2024 7:42 PM [facility] KETONES UA Negative Negative 10/08/2024 7:42 PM CDT [facility] UROBILINOGEN UA <2.0 <2.0 mg/dL 7:42 PM CDT [facility] BILIRUBIN UA Negative Negative 10/08/2024 7:42 PM CDT [facility] BLOOD UA Negative Negative 10/08/2024 7:42 PM CDT [facility] Urine URINE SPECIMEN OBTAINED BY CLEAN CATCH PROCEDURE / Unknown Collection / Unknown 10/08/2024 7:39 PM CDT 10/08/2024 7:39 PM CDT us Caitlyn Doty REPORT SPECIALIST URINE ORDERABLES Final Resu lt Performing Organization Address City/[facility]/ZIP Co de Phone Number [facility] CLIA # [id number] [facility] [address] [address] * UNFRACTIONATED HEPARIN MONITORING (10/08/2024 1:59 PM CDT) Only the most recent of3 resultswithin the time period is included. ANTI-XA UNFRAC HEP 0.21 See Interpretation IU/mL 10/08/2024 2:26 PM CDT [facility] Blood Venipuncture / Unknown 10/08/2024 1:59 PM CDT 10/08/2024 2:05 PM CDT Narrative [facility] - 10/08/2024 2:26 PM CDT Therapeutic Range: PT/DVT Heparin Protocol 0.3 - 0.7 IU/ml Cardiac Heparin Protocol 0.3 - 0.6 IU/ml The reference range for this test is specific to the anticoagulant and is not appropriate for monitoring patients on a DOAC protocol. us Moiz Perry MD HEMATOLOGY ORDERABLES Final Result Performing Organization Address City/[facility]/ZIP Co de Phone Number [facility] CLIA # [id number] [address] [address] [place] [address] * ECHO COMPLETE - CONTRAST AND STRAIN IF INDICATED (10/08/2024 10:09 AM CDT) EJECTION FRACTION 55 INTERFACE SYSTEM 10/08/2024 9:24 AM CDT Narrative INTERFACE SYSTEM - 10/08/2024 10:41 AM CDT [facility] Echocardiography Laboratory [address] [place] [address] Transthoracic Echocardiography Patient: kSyler Hernadez Study ID: ECHO COMPLETE Gender: Mindy : 1970 Age: 54 Room: [facility] Study Date: 10/08/2024 Pt Status: Inpatient Study Time: 09:24:22 AM CSN #: [id number] Ordering:Nupur Woodward Chief Nurse Executive: Chad Valentino [facility] Indications and History: Hypotension or Hemodynamic Instability; Hypotension or hemodynamic instability of uncertain or suspected cardiac etiology. Summary and Conclusion: - Left ventricle: The cavity size is normal. Wall thickness is normal. Global systolic function is normal. The estimated ejection fraction is 55%. For Epic reporting: the left ventricular ejection fraction is 55% No diagnostic regional wall motion abnormality identified. Abnormal relaxation with increased filling pressures. The global longitudinal strain is -19% (Normal range is -18 to -25). - Right ventricle: The cavity size is normal. Systolic function is normal. Systolic pressure is mildly increased. - Aortic valve: There is trivial to mild regurgitation. - Mitral valve: The annulus is mildly calcified. mildly thickened. There is trivial to mild regurgitation. - Tricuspid valve: There is mild-moderate regurgitation. Procedure information: Comparison is made to the study of 06/22/2024. Study status: STAT. Procedure: A transthoracic echocardiogram was performed. Image quality was adequate. Scanning was performed from the parasternal, apical, subcostal, and suprasternal notch acoustic windows. Study components: M-mode, 2D, complete spectral Doppler, and color Doppler. Height: 172.7cm. Height: 68in. Weight: 103kg. Weight: 227.1lb. BMI: 34.5kg/m^2. BSA: 2.26m^2. Blood pressure: 134/75 Study date: 10/08/2024. Study time: 09:24 AM. Location: Emergency department. Cardiac Anatomy: LEFT VENTRICLE: The cavity size is normal. Wall thickness is normal. Global systolic function is normal. The estimated ejection fraction is 55%. For Epic reporting: the left ventricular ejection fraction is 55% No diagnostic regional wall motion abnormality identified. The longitudinal strain is -19.0% (Normal range is -18 to -25).. The global longitudinal strain is -19% (Normal range is -18 to -25). Abnormal relaxation with increased filling pressures. RIGHT VENTRICLE: The cavity size is normal. Systolic function is normal. Systolic pressure is mildly increased. LEFT ATRIUM: The atrium is normal in size. RIGHT ATRIUM: The atrium is normal in size. ATRIAL SEPTUM: No obvious PFO or ASD identified by 2D imaging and color Doppler. AORTIC VALVE: The valve is trileaflet. The leaflets are normal thickness. Mobility is not restricted. There is no stenosis. There is trivial to mild regurgitation. MITRAL VALVE: The annulus is mildly calcified. mildly thickened. Mobility is not restricted. No evidence for prolapse. There is no evidence for stenosis. There is trivial to mild regurgitation. TRICUSPID VALVE: Structurally normal valve. Mobility is unrestricted. There is no evidence for stenosis. There is mild-moderate regurgitation. PULMONIC VALVE: Not well visualized. The valve appears to be grossly normal. There is no evidence for stenosis. There is trivial regurgitation. PERICARDIUM: There is no pericardial effusion. AORTA: Aortic root: The root is not dilated. Aortic arch: The vessel is not dilated. INTRACARDIAC MASS THROMBUS: No apparent intracavitary masses or thrombi detected. Measurements Left ventricle Value Left atrium Value GLS, 2D -19.0 % AP dim, ES 4.1 cm JAZMINE, LAX 4.3 cm AP dim index, ES 1.8 cm/m^2 ESD, LAX 2.7 cm SI dim, A4C 5.1 cm JAZMINE/bsa, LAX 1.9 cm/m^2 Area ES, A4C 18 cm^2 ESD/bsa, LAX 1.2 cm/m^2 Vol, S 56 ml FS, LAX 38 % Vol/bsa, S 25 ml/m^2 ESD major ax, A4C 7.6 cm Vol, ES, 1-p A4C 51 ml ESD/bsa major ax, A4C 3.4 cm/m^2 Vol/bsa, ES, 1-p A4C 22 ml/m^2 JAZMINE minor ax, A4C 7.6 cm Vol, ES, 1-p A2C 55 ml JAZMINE/bsa minor ax, A4C 3.4 cm/m^2 Vol/bsa, ES, 1-p A2C 24 ml/m^2 JAZMINE major ax, A2C 9.2 cm Vol, ES, A/L 54 ml ESD major ax, A2C 8.1 cm Vol/bsa, ES, A/L 24 ml/m^2 JAZMINE/bsa major ax, A2C 4.1 cm/m^2 ESD/bsa major ax, A2C 3.6 cm/m^2 Right atrium Value IVS, ED 0.9 cm Area, ES 15 cm^2 ESD 2.7 cm Area, ES, A4C 15 cm^2 ESD/bsa 1.2 cm/m^2 PW, ED 0.9 cm Aortic valve Value IVS/PW, ED 1 Peak v, S 148.13 cm/sec EDV, 1-p A2C 121 ml VTI, S 34.9 cm ESV, 1-p A2C 62 ml Mean grad, S 5 mm Hg EF, 1-p A2C 51 % Peak grad, S 9 mm Hg EDV/bsa, 1-p A2C 54 ml/m^2 LVOT/AV, VTI ratio 0.76 ESV/bsa, 1-p A2C 27 ml/m^2 SILKE, VTI 2.71 cm^2 EDV, 1-p A4C 115 ml SILKE/bsa, VTI 1.2 cm^2/m^2 ESV, 1-p A4C 67 ml LVOT/AV, Vpeak ratio 0.77 EF, 1-p A4C 41 % SILKE, Vmax 2.74 cm^2 SV, 1-p A4C 47 ml SILKE/bsa, Vmax 1.21 cm^2/m^2 EDV/bsa, 1-p A4C 51 ml/m^2 ESV/bsa, 1-p A4C 30 ml/m^2 Mitral valve Value SV/bsa, 1-p A4C 21 ml/m^2 Mean v, D 80.58 cm/sec EDV, 2-p 118 ml Peak E 117.46 cm/sec ESV, 2-p 64 ml Peak A 64.99 cm/sec EF, 2-p 46 % Decel time 147 ms SV, 2-p 59 ml PHT 82 ms EDV/bsa, 2-p 52 ml/m^2 Mean grad, D 3 mm Hg ESV/bsa, 2-p 28 ml/m^2 Peak grad, D 6 mm Hg SV/bsa, 2-p 26.3 ml/m^2 Peak E/A ratio 1.81 MVA, PHT 2.69 cm^2 LVOT Value MVA/bsa, PHT 1.19 cm^2/m^2 Diam, S 2.1 cm Vena contracta width 3.2 cm Area 3.6 cm^2 Peak prachi, S 114.08 cm/sec Tricuspid valve Value VTI, S 26.6 cm TR peak v 283.57 cm/sec Peak grad, S 5 mm Hg Peak RV-RA grad, S 32 mm Hg SV 95 ml Qs 16.4 L/min Aortic root Value Qs/bsa 7.3 L/(min-m^2) Root diam 2.8 cm SV/bsa 42 ml/m^2 Root diam/bsa 1.3 cm/m^2 Right ventricle Value Inferior vena cava Value JAZMINE, LAX 3.2 cm Diam 1.7 cm JAZMINE 3.2 cm Legend: (L) and (H) zackery values outside specified reference range. [facility] are accredited with the Intersocietal Accreditation Commission - Echocardiography. Prepared and Electronically Authenticated Familia Reed MD Confirmed 10/08/2024 10:41 Procedure Note Familia Reed MD - 10/08/2024 [facility] Echocardiography Laboratory [address] [place] [id number] Transthoracic Echocardiography Patient: Skyler Hernadez Study ID: ECHOCOMPLETJesica Gender: M : 1970 Age: 54 Room: [facility] Study Date: 10/08/2024 Pt Status: Inpatient Study Time: 09:24:22 AM CSN #: [id number] Ordering:Nupur Woodward Chief Nurse Executive: Chad Valentino [facility] Indications and History: Hypotension or Hemodynamic Instability;Hypotension or hemodynamic instability of uncertain or suspected cardiac etiology. Summary and Conclusion: - Left ventricle: The cavity size is normal. Wall thickness is normal.Global systolic function is normal. The estimated ejection fraction is 55%.For Epic reporting: the left ventricular ejection fraction is 55% Nodiagnostic regional wall motion abnormality identified. Abnormal relaxation with increased filling pressures. The global longitudinal strain is -19%(Normal range is -18 to -25). - Right ventricle: The cavity size is normal. Systolic function isnormal. Systolic pressure is mildly increased. - Aortic valve: There is trivial to mild regurgitation. - Mitral valve: The annulus is mildly calcified. mildly thickened. Thereis trivial to mild regurgitation. - Tricuspid valve: There is mild-moderate regurgitation. Procedure information: Comparison is made to the study of 06/22/2024.Study status: STAT. Procedure: A transthoracic echocardiogram wasperformed. Image quality was adequate. Scanning was performed from the parasternal, apical, subcostal, and suprasternal notch acoustic windows.Study components: M-mode, 2D, complete spectral Doppler, and color Doppler. Height: 172.7cm. Height: 68in. Weight: 103kg. Weight: 227.1lb.BMI: 34.5kg/m^2. BSA: 2.26m^2. Blood pressure: 134/75 Studydate: 10/08/2024. Study time: 09:24 AM. Location: Emergency department. Cardiac Anatomy: LEFT VENTRICLE: The cavity size is normal. Wall thickness is normal.Global systolic function is normal. The estimated ejection fraction is 55%. ForEpic reporting: the left ventricular ejection fraction is 55% No diagnostic regional wall motion abnormality identified. The longitudinal strain is-19.0% (Normal range is -18 to -25).. The global longitudinal strain is -19%(Normal range is -18 to -25). Abnormal relaxation with increased fillingpressures. RIGHT VENTRICLE: The cavity size is normal. Systolic function isnormal. Systolic pressure is mildly increased. LEFT ATRIUM: The atrium is normal in size. RIGHT ATRIUM: The atrium is normal in size. ATRIAL SEPTUM: No obvious PFO or ASD identified by 2D imaging and color Doppler. AORTIC VALVE: The valve is trileaflet. The leaflets are normalthickness. Mobility is not restricted. There is no stenosis. There is trivial tomild regurgitation. MITRAL VALVE: The annulus is mildly calcified. mildly thickened. Mobilityis not restricted. No evidence for prolapse. There is no evidence forstenosis. There is trivial to mild regurgitation. TRICUSPID VALVE: Structurally normal valve. Mobility isunrestricted. There is no evidence for stenosis. There is mild-moderateregurgitation. PULMONIC VALVE: Not well visualized. The valve appears to be grosslynormal. There is no evidence for stenosis. There is trivial regurgitation. PERICARDIUM: There is no pericardial effusion. AORTA: Aortic root: The root is not dilated. Aortic arch: The vessel is not dilated. INTRACARDIAC MASS THROMBUS: No apparent intracavitary masses or thrombi detected. Measurements Left ventricle Value Left atrium Value GLS, 2D -19.0 % AP dim, ES 4.1cm JAZMINE, LAX 4.3 cm AP dim index, ES 1.8cm/m^2 ESD, LAX 2.7 cm SI dim, A4C 5.1cm JAZMINE/bsa, LAX 1.9 cm/m^2 Area ES, A4C 18cm^2 ESD/bsa, LAX 1.2 cm/m^2 Vol, S 56ml FS, LAX 38 % Vol/bsa, S 25ml/m^2 ESD major ax, A4C 7.6 cm Vol, ES, 1-p A4C 51ml ESD/bsa major ax, A4C 3.4 cm/m^2 Vol/bsa, ES, 1-p A4C 22ml/m^2 JAZMINE minor ax, A4C 7.6 cm Vol, ES, 1-p A2C 55ml JAZMINE/bsa minor ax, A4C 3.4 cm/m^2 Vol/bsa, ES, 1-p A2C 24ml/m^2 JAZMINE major ax, A2C 9.2 cm Vol, ES, A/L 54ml ESD major ax, A2C 8.1 cm Vol/bsa, ES, A/L 24ml/m^2 JAZMINE/bsa major ax, A2C 4.1 cm/m^2 ESD/bsa major ax, A2C 3.6 cm/m^2 Right atrium Value IVS, ED 0.9 cm Area, ES 15cm^2 ESD 2.7 cm Area, ES, A4C 15cm^2 ESD/bsa 1.2 cm/m^2 PW, ED 0.9 cm Aortic valve Value IVS/PW, ED 1 Peak v, S 148.13cm/sec EDV, 1-p A2C 121 ml VTI, S 34.9cm ESV, 1-p A2C 62 ml Mean grad, S 5mm Hg EF, 1-p A2C 51 % Peak grad, S 9mm Hg EDV/bsa, 1-p A2C 54 ml/m^2 LVOT/AV, VTI ratio 0.76 ESV/bsa, 1-p A2C 27 ml/m^2 SILKE, VTI 2.71cm^2 EDV, 1-p A4C 115 ml SILKE/bsa, VTI 1.2cm^2/m^2 ESV, 1-p A4C 67 ml LVOT/AV, Vpeak ratio 0.77 EF, 1-p A4C 41 % SILKE, Vmax 2.74cm^2 SV, 1-p A4C 47 ml SILKE/bsa, Vmax 1.21cm^2/m^2 EDV/bsa, 1-p A4C 51 ml/m^2 ESV/bsa, 1-p A4C 30 ml/m^2 Mitral valve Value SV/bsa, 1-p A4C 21 ml/m^2 Mean v, D 80.58cm/sec EDV, 2-p 118 ml Peak E 117.46cm/sec ESV, 2-p 64 ml Peak A 64.99cm/sec EF, 2-p 46 % Decel time 147ms SV, 2-p 59 ml PHT 82ms EDV/bsa, 2-p 52 ml/m^2 Mean grad, D 3mm Hg ESV/bsa, 2-p 28 ml/m^2 Peak grad, D 6mm Hg SV/bsa, 2-p 26.3 ml/m^2 Peak E/A ratio 1.81 MVA, PHT 2.69cm^2 LVOT Value MVA/bsa, PHT 1.19cm^2/m^2 Diam, S 2.1 cm Vena contracta width 3.2cm Area 3.6 cm^2 Peak prachi, S 114.08 cm/sec Tricuspid valve Value VTI, S 26.6 cm TR peak v 283.57cm/sec Peak grad, S 5 mm Hg Peak RV-RA grad, S 32mm Hg SV 95 ml Qs 16.4 L/min Aortic root Value Qs/bsa 7.3 L/(min-m^2) Root diam 2.8cm SV/bsa 42 ml/m^2 Root diam/bsa 1.3cm/m^2 Right ventricle Value Inferior vena cava Value JAZMINE, LAX 3.2 cm Diam 1.7cm JAZMINE 3.2 cm Legend: (L) and (H) zackery values outside specified reference range. [facility] are accredited with theIntersocietal Accreditation Commission - Echocardiography. Prepared and Electronically Authenticated Familia Reed MD Confirmed 10/08/2024 10:41 us Nupur Woodward REPORT SPECIALIST US ORDERABLES Final Resu lt INTERFACE SYSTEM Refer to clinic/hospital department * (ABNORMAL) TROPONIN 6 HR, 5TH GEN (10/08/2024 5:59 AM CDT) TROPONIN T, 6 HR 5TH GEN 351(HH) <=15 ng/L 10/08/2024 6:56 AM CDT [facility] DELTA 6HR TROPONIN T % -17 See Interp. % 10/08/2024 6:56 AM CDT [facility] Blood Venipuncture / Unknown 10/08/2024 5:59 AM CDT 10/08/2024 6:09 AM CDT [facility] - 10/08/2024 6:56 AM CDT Troponin elevated. Delay in collection of timed specimen beyond recommended collection interval. Results must be interpreted in clinical context. Delta not changing. Jonathon Isaac APRN CHEMISTRY ORDERABLES Final R esult Performing Organization Address [facility] Co de Phone Number [facility] CLIA # [id number] [address] [address] [place] [address] * (ABNORMAL) TROPONIN 2 HR, 5TH GEN (10/08/2024 3:41 AM CDT) TROPONIN T, 2 HR 5TH GEN 363(HH) <=15 ng/L 10/08/2024 4:18 AM CDT [facility] DELTA 2HR TROPONIN T % -14 See Interp. % 10/08/2024 4:18 AM CDT [facility] Blood Venipuncture / Unknown 10/08/2024 3:41 AM CDT 10/08/2024 3:47 AM CDT [facility] - 10/08/2024 4:18 AM CDT Troponin elevated. Delay in collection of timed specimen beyond recommended collection interval. Results must be interpreted in clinical context. Delta not changing. Jonathon Isaac APRN CHEMISTRY ORDERABLES Final R esult Performing Organization Address [facility]/ZIP Co de Phone Number [facility] CLIA # [id number] [address] [place] [phone] * (ABNORMAL) IRON, TIBC, AND PERCENT SATURATION (10/08/2024 3:41 AM CDT) [facility] IRON 23(L) 59 - 158 ug/dL 10/08/2024 5:07 AM CDT [facility] TIBC 190(L) 250 - 450 ug/dL 10/08/2024 5:07 AM CDT [facility] IRON % SATURATION 12(L) 15 - 60 % 10/08/2024 5:07 AM CDT [facility] Blood Venipuncture / Unknown 10/08/2024 3:41 AM CDT 10/08/2024 3:47 AM CDT Hernan Aleman MD CHEMISTRY ORDERABLES Fi nal Result Performing Organization Address City/[facility]/ZIP Co de Phone Number [facility] CLIA # [id number] Pending sale to [facility] [address] * FERRITIN (10/08/2024 3:41 AM CDT) [facility] FERRITIN 189.7 30.0 - 400.0 ng/mL 10/08/2024 5:03 AM CDT [facility] Blood Venipuncture / Unknown 10/08/2024 3:41 AM CDT 10/08/2024 3:47 AM CDT Hernan Aleman MD CHEMISTRY ORDERABLES Fi nal Result [facility] CLIA # [id number] [address] [address] * PTT (10/08/2024 1:44 AM CDT) PTT 33.1 24.8 - 37.2 seconds 10/08/2024 3:05 AM CDT [facility] Blood Venipuncture / Unknown 10/08/2024 1:44 AM CDT 10/08/2024 1:50 AM CDT [facility] - 10/08/2024 3:05 AM CDT Therapeutic Range: Hi-level PE/DVT heparin protocol 80.1 - 95.0 sec Lo-level PE/DVT heparin protocol 70.1 - 85.0 sec Cardiac Heparin Protocol 70.1 - 100.0 sec Jaren Recinos MD HEMATOLOGY ORDERABLES Final Result Performing Organization Address [facility] Co de Phone Number [facility] CLIA # [id number] [address] [phone] * (ABNORMAL) TROPONIN BASELINE, 5TH GEN (10/07/2024 11:48 PM CDT) TROPONIN T, BASELINE 5TH GEN 423(HH) <=15 ng/L 10/08/2024 12:40 AM CDT [facility] Blood Venipuncture / Unknown 10/07/2024 11:48 PM CDT 10/07/2024 11:51 PM CDT [facility] - 10/08/2024 12:40 AM CDT Troponin elevated. Jonathon Isaac APRN CHEMISTRY ORDERABLES Final R esult Performing Organization Address City/[facility]/ZIP Co de Phone Number [facility] CLIA # [id number] [address] [phone] * (ABNORMAL) HEPATIC FUNCTION PANEL (10/07/2024 11:48 PM CDT) TOTAL PROTEIN 7.9 6.4 - 8.3 g/dL 10/08/2024 12:27 AM CDT [facility] ALBUMIN 3.5 3.5 - 5.2 g/dL 10/08/2024 12:27 AM CDT [facility] BILIRUBIN TOTAL 0.4 0.0 - 1.0 mg/dL 10/08/2024 12:27 AM CDT [facility] BILIRUBIN DIRECT 0.2 0.0 - 0.3 mg/dL 10/08/2024 12:27 AM CDT [facility] ALKALINE PHOSPHATASE 204(H) 40 - 129 U/L 10/08/2024 12:27 AM T [facility] AST 23 10 - 50 U/L 10/08/2024 12:27 AM T [facility] ALT 8 <=50 U/L 10/08/2024 12:27 AM T [facility] Blood Venipuncture / Unknown 10/07/2024 11:48 PM CDT 10/07/2024 11:51 PM CDT us Jaren Recinos MD CHEMISTRY ORDERABLES Final R esult [facility] CLIA # [id number] [address] [place] [address] * XR CHEST PA OR AP 1 VW (10/07/2024 11:41 PM CDT) Anatomical Region Laterality Modality Chest Computed Radiogr aphy 10/07/2024 11:4 2 PM CDT Impressions 10/08/2024 7:46 AM CDT IMPRESSION: Please see below. Exam: XR CHEST PA OR AP 1 VW Date/Time of Exam: 10/07/2024 11:41 PM Reason For Exam: Shortness of Breath SOB. Diagnosis: See Reason for Exam. Comparison: None FINDINGS: Cardiac mediastinal silhouette is within normal limits. Lungs clear with decreased volumes with mild central venous and interstitial engorgement. No airspace disease or effusion. No pneumothorax. Scoliosis and spondylosis. Postcholecystectomy. Narrative Procedure Note Marcelo Ross DO - 10/08/2024 IMPRESSION: Please see below. Exam: XR CHEST PA OR AP 1 VW Date/Time of Exam: 10/07/2024 11:41 PM Reason For Exam: Shortness of Breath SOB. Diagnosis: See Reason for Exam. Comparison: None FINDINGS: Cardiac mediastinal silhouette is within normal limits. Lungs clear with decreased volumes with mild central venous and interstitial engorgement. No airspace disease or effusion. No pneumothorax. Scoliosis and spondylosis. Postcholecystectomy. 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: [id number] : 1970 Requested By: Order Number: [id number] Reading MD: Lamine Plunkett Measurements Intervals [place] Rate: 90 P: 45 [place]: 126 QRS: 78 QRSD: 106 T: -18 QT: 398 QTc: 486 Interpretive Statements Normal sinus rhythm T wave abnormality, consider inferior ischemia Abnormal ECG Electronically Signed On 10-08-2024 8:07:47 CDT by Lamine Plunkett Procedure Note Lamine Plunkett MD - 10/08/[address] [address] Test Date: 2024-10-07 Pat Name: SKYLER HERNADEZ Department: 11 Room: Gender: Male General Ledger Accountant: [id number] : 1970 Requested By: Order Number: [id number] Reading MD: Lamine Plunkett Measurements Intervals [place] Rate: 90 P: 45 [place]: 126 QRS: 78 QRSD: 106 T: -18 QT: 398 QTc: 486 Interpretive Statements Normal sinus rhythm T wave abnormality, consider inferior ischemia Abnormal ECG Electronically Signed On 10-08-2024 8:07:47 CDT by Lamine Plunkett Jonathon Isaac FORGER HELPER ECG ORDERABLES Final Result INTERFACE SYSTEM Refer to clinic/hospital department from Last 3 Months [facility] Subscriber Plan / Payer (Ef fective 2024-Present) Name:Hernadez, Skyler Relation to Subscriber:Self Name:Hernadez Skyler Payer ID:Not on file Group ID:Not on file Type:HMO Address: [address] [id number] [employer] Medicaid Advance Directives For more information, please contact: [phone] * Full Code (Latest Code Status on File) Date Activated Date Inactivated Comments 10/08/2024 1:49 AM 10/17/2024 6:56 PM
--- OUTSIDE RECORDS SUMMARY | 2024-11-24 14:52 | XMS_ITS | Data Portability ---
Author Organization [place] 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 Quezada Will call with results cut out all salts and sugar, watch carb intake push fluids as UA is showing dehydration Not available 04/04/2020 16:08:56 04/25/2020 04/25/2020 Per pt.: -Has had headache x 3 wks. -BP was 220/124 last week 160/114 on Thanksgiving -Sometimes chest hurts when BP elevated -Has been taking BP meds as ordered -Denies fevers or SOB -Denies N/V. Chronic occ. diarrhea -Cont. to have abdominal pain and test he had done showed he may have cirrhosis (CT scan 02/03/20) -Urology surgery cancelled d/t surgeon out of network. Needs new surgeon -Would like wart on left hand treated again. Other wart went away after last tx. Advised: -Given ketorolac 60 mg IM to cease headache -Pt. remained in the office for approx. 20 min. after receiving ketorolac. No ill effects from med noted -BP 148/90. Pulse 88. New order metoprolol -Referring to GI -Taken back to [facility] in referrals to schedule GI appt. and to help him find a new urologist -Left hand wart treated again today. Report if wart persists -RTO as needed and in 3 wks. for f/u with Practitioner Khalida Woodward. verbalized understanding & agreeing with POC rkeeling Not available 04/25/2020 15:36:43 05/05/2020 05/05/2020 Advised patient that I do not do pain medication and will not refill [place] - patient voiced understanding and willing to go to pain management - Not available 05/05/2020 14:02:25 06/07/2020 06/07/2020 F/U after surgery Not available 06/07/2020 16:22:33 Plan of Treatment Reminders Order Date Submit Date Provider Last Modified By Organization Details Last Modified Time Details Appointments None recorded. Lab urinalysis , dipstick 2019 [facility] - In Office Orders (For Internal Use Only), [address] [place] [facility] [place], [address], 0 16:08:15 lipase, serum or plasma 2019 [facility], [address] [place], [address], 0 16:44:19 CBC w/ auto diff 2019 [facility], [address] [place], [address], 0 16:01:14 C-reactive protein, quantitati ve, serum or plasma 2019 [facility], [address] [place], [address], 0 16:44:18 BMP, serum or plasma 2019 [facility], [address] [place], [address], 0 16:44:15 culture, stool [email or web address] [facility], [address] [place], [address], 0 07:12:28 C diff screen, stool, reflex PCR [address] [facility], [address] [place], [address], 0 07:12:28 O&P (ova & parasites) , stool [address] [facility], [address] [place], [address], 0 07:12:28 urinalysis , dipstick 2019 Amg - In Office Orders (For Internal Use Only), [address] [place], [address], 0 15:03:47 Referral pain management referral - ATTN WAYNE New Patient Pt Ph#[phone] Pt states he lives in an area with bad signal may not get your call but can leave a message or email him @ [email or web address] om Thank you Pt denies injury to his back and he denies completing any physical therapy 2019 martha Bee MD, [address] [facility], [facility] [address], [place], [address], 1 10:11:05 gastroente rologist referral - Dear , Pt. having ongoing abdominal c/o. CT scan from 02/03/20 showed: IMPRESSION : 1. No clear explanatio n of abdominal symptoms is identified . No evidence of pancreatit is is seen. No urinary tract calculi are seen. 2. The liver contour appears slightly nodular. Possibilit y of cirrhosis not excluded. Thank you for your time! -Ankita Graham DEFENSIVE SECONDARY COACH-C 2019 [email or web address] Edwardo Alberto MD, [address] [facility], [address], [place], [address], 1 10:23:16 urologist referral - Dr Sanches Patient was seeing Dr Quezada but then was told his insurance is out of network and is needing continuati on of care. Thank you 2019 [email or web address] [facility], [address], [address], [place], [address], 1 18:56:41 Procedures colonoscop y procedure (PROC) 2019 [email or web address] [facility] - Surgery Dept - [place], [address] [place], [address], 0 15:25:15 Surgeries None recorded. Imaging None recorded. Medication Orders sumatripta n 50 mg tablet 2020 021 INTERFACE [id number], [address] [place], [address], 1 16:18:16 metoprolol succinate ER 50 mg tablet,ext ended release 24 hr 2020 021 INTERFACE [id number], [address] [place], [address], 1 16:18:16 ketorolac 30 mg/mL (1 mL) injection solution 2019 020 [email or web address] Not available 0 13:41:43 metoprolol succinate ER 25 mg tablet,ext ended release 24 hr 2019 020 [facility], [address] [place], [address], 1 07:37:52 fenofibrat e 54 mg tablet 2019 020 INTERFACE [id number], [address] [place], [address], 0 16:08:18 Ozempic 0.25 mg or 0.5 mg (2 mg/1.5 mL) subcutaneo us pen injector 2019 INTERFACE [facility], [address] [place], [address], 0 16:08:18 Levemir FlexTouch U-100 Insulin 100 unit/mL (3 mL) subcutaneo us pen 2019 [facility], [address] [place], [address], 1 07:32:05 Admelog SoloStar U-100 Insulin lispro 100 unit/mL subcutaneo us pen 2019 INTERFACE [facility], [address] [place], [address], 0 16:08:20 esomeprazo le magnesium 20 mg capsule,de layed release 2019 020 INTERFACE [facility], [address] [place], [address], 0 16:08:20 lisinopril 40 mg tablet 2019 020 INTERFACE [facility], [address] [place], [address], 0 16:08:19 gabapentin 300 mg capsule 2019 020 INTERFACE [facility], [address] [place], [address], 0 16:08:19 hydrocodon e 7.5 mg-acetami nophen 325 mg tablet 2019 020 INTERFACE [id number], [address] [place], [address], 0 16:11:56 Patient TargetsNo targets recorded. Patient Instructions Encounter Date Encounter Id Patient Instructions Last Modified By Organization Details Last Modified Time 04/25/2020 [id number] warts: care instructions rkeeling Not available 04/25/2020 15:31:15 abdominal pain: care instructions rkeeling Not available 04/25/2020 15:31:02 high blood pressure: care instructions rkeeling Not available 04/25/2020 15:31:02 Reason for Referral Urologist Referral for Blood in urine Dr SanchesPatient was seeing Dr Quezada but then was told his insurance is out of network and is needing continuation of care.Thank you Referring Physician: Simone Roque, Family Medicine, Encounter Date: 02/23/2020 Industrial Waste Treatment Technician Referral for Abdominal pain Abd. pain & nodular liver contour. Dear ,Pt. having ongoing abdominal c/o.CT scan from 02/03/20 showed:IMPRESSION:1. No clear explanation of abdominal symptoms is identified. No evidence of pancreatitis is seen. No urinary tract calculi are seen.2. The liver contour appears slightly nodular. Possibility of cirrhosis not excluded.Thank you for your time!-Ankita Graham DEFENSIVE SECONDARY COACH-C Referring Physician: Ankita Graham, Family Medicine, Encounter Date: 04/25/2020 Pain Management Referral for Low back pain low back pain WILLIAM Bazan PatientPt Pt states he lives in an area with bad signal may not get your call but can leave a message or email him @ [email or web address] youPt denies injury to his back and he denies completing any physical therapy Referring Physician: Nhi Gaxiola, Family Medicine, Encounter Date: 05/05/2020 Results Created Date Observation Date Name Description Value Unit Range Abnormal Flag Note LastModifiedBy Organization Detail LastModifiedTime 04/04/2004/04/2020 urina lysis , dipst ick specific gravity >1.030 1.005 - 1.030 abnormal Not Available [facility] - In Office Orders (For Internal Use Only) [address] [facility], [place], [address], 04/04/2020 15:59:08 04/04/20 20 04/04/2020 urina lysis , dipst ick pH 6.0 5.0 - 9.0 normal Not Available [facility] - In Office Orders (For Internal Use Only) [address] [place], [address], 04/04/2020 15:59:08 04/04/20 20 04/04/2020 urina lysis , dipst ick leukocytes neg negati ve normal Not Available [facility] - In Office Orders (For Internal Use Only) [address] [place] [address], [address], 04/04/2020 15:59:08 04/04/20 20 04/04/2020 urina lysis , dipst ick nitrite neg negati ve normal Not Available [facility] - In Office Orders (For Internal Use Only) [address] [place] [address], [address], 04/04/2020 15:59:08 04/04/20 20 04/04/2020 urina lysis , dipst ick protein (mg/dL) >300 negati ve abnormal Not Available [facility] - In Office Orders (For Internal Use Only) [address] [place] [address], [address], 04/04/2020 15:59:08 04/04/20 20 04/04/2020 urina lysis , dipst ick glucose (mg/dL) 500 normal abnormal Not Available [facility] - In Office Orders (For Internal Use Only) [address] [place] [address], [address], 04/04/2020 15:59:08 04/04/2004/04/2020 urina lysis , dipst ick ketones neg negati ve normal Not Available [facility] - In Office Orders (For Internal Use Only) [address] [place] [address], [address], 04/04/2020 15:59:08 04/04/2004/04/2020 urina lysis , dipst ick urobilinogen (mg/dL) 0.2 0.2 - 1.0 normal Not Available [facility] - In Office Orders (For Internal Use Only) [address] [place] [address], [address], 04/04/2020 15:59:08 04/04/20 20 04/04/2020 urina lysis , dipst ick bilirubin neg negati ve normal Not Available [facility]g - In Office Orders (For Internal Use Only) [address] [place], [address], 04/04/2020 15:59:08 04/04/20 20 04/04/2020 urina lysis , dipst ick blood modera te negati ve abnormal Not Available [facility] - In Office Orders (For Internal Use Only) [address] [place], [address], 04/04/2020 15:59:08 02/03/20 20 02/03/2020 urina lysis compl ete, refle x cultu re glucose-ur NEGATI VE mg/dL neg Not Available [facility] [address], [address], 02/03/2020 12:08:58 02/03/20 20 02/03/2020 urina lysis compl ete, refle x cultu re ketone-ur NEGATI VE mg/dL neg Not Available [facility] [address], [address], 02/03/2020 12:08:58 02/03/20 20 02/03/2020 urina lysis compl ete, refle x cultu re spec grav-ur 1.025 1.003- 1.035 Not Available [facility] [address], [address], 02/03/2020 12:08:58 02/03/20 20 02/03/2020 urina lysis compl ete, refle x cultu re occult bld-ur TRACE neg abnormal Not Available [facility] [address], [address], 02/03/2020 12:08:58 02/03/20 20 02/03/2020 urina lysis compl ete, refle x cultu re pH-ur 7.5 4.5-8. 0 Not Available [facility] [address], [address], 02/03/2020 12:08:58 02/03/20 20 02/03/2020 urina lysis compl ete, refle x cultu re protein, ur 100 mg/dL neg abnormal Not Available [facility] [address], [address], 02/03/2020 12:08:58 02/03/20 20 02/03/2020 urina lysis compl ete, refle x cultu re nitrite-ur NEGATI VE neg Not Available As[facility] - [facility] [address], [address], 02/03/2020 12:08:58 02/03/20 20 02/03/2020 urina lysis compl ete, refle x cultu re leuk est-ur NEGATI VE neg Not Available [facility] [address], [address], 02/03/2020 12:08:58 02/03/20 20 02/03/2020 urina lysis compl ete, refle x cultu re color-ur YELLOW yel Not Available Asv - [facility] y[facility] [address], [address], 02/03/2020 12:08:58 02/03/20 20 02/03/2020 urina lysis compl ete, refle x cultu re appearance-u r CLEAR clear Not Available Asv - [facility] [address], [address], 02/03/2020 12:08:58 02/03/20 20 02/03/2020 urina lysis compl ete, refle x cultu re WBC-ur 0-5 /hpf ztf Not Available Asv - [facility] [address], [address], 02/03/2020 12:08:58 02/03/20 20 02/03/2020 urina lysis compl ete, refle x cultu re RBC-ur 0-3 /hpf ztt [facility] [address] [place], [address], 02/03/2020 12:08:58 02/03/20 20 02/03/2020 urina lysis compl ete, refle x cultu re epi cell-ur 0-5 /hpf none abnormal Not Available [facility] [address] [place], [address], 02/03/2020 12:08:58 02/03/20 20 02/03/2020 urina lysis compl ete, refle x cultu re bacteria-ur TRACE /hpf trace Not Available [facility] [address] [place], [address], 02/03/2020 12:08:58 02/03/20 20 02/03/2020 urina lysis compl ete, refle x cultu re urine comment micro This urine was exami parth micro scopi anastacia for the prese nce of WBC, RBC, bacte vu, casts , and other forme d eleme nts. Only those eleme nts seen were repor ambrosio. Testi ng by [facility] [address] [place] [address] Not Available v [facility] [address] [place], [address], 02/03/2020 12:08:58 02/03/2002/03/2020 CBC w/ auto diff white blood CT 8.3 K/cum m 3.3-10 .5 Not Available [facility] [address] [place], [address], 02/03/2020 12:13:28 02/03/20 20 02/03/2020 CBC w/ auto diff red blood count 4.52 M/cum m 4.15-5 .75 Not Available [facility] [address] [place], [address], 02/03/2020 12:13:28 02/03/2002/03/2020 CBC w/ auto diff hemoglobin 14.3 g/dL 12.8-1 6.9 Not Available [address], [address], 02/03/2020 12:13:28 02/03/2002/03/2020 CBC w/ auto diff hematocrit 41.6 % 38.8-5 0.2 Not Available [facility] [address], [address], 02/03/2020 12:13:28 02/03/2002/03/2020 CBC w/ auto diff MCV 92.0 fL 80.0-1 05.0 Not Available [facility] [address], [address], 02/03/2020 12:13:28 02/03/2002/03/2020 CBC w/ auto diff MCH 31.6 pg 27.0-3 4.0 Not Available [facility] [address], [address], 02/03/2020 12:13:28 02/03/2002/03/2020 CBC w/ auto diff MCHC 34.4 g/dL 30.5-3 4.5 Not Available [facility] [address], [address], 02/03/2020 12:13:28 02/03/2002/03/2020 CBC w/ auto diff RDW 13.3 % 11.5-1 5.0 Not Available [facility] [address], [address], 02/03/2020 12:13:28 02/03/2002/03/2020 CBC w/ auto diff platelet count 129 K/cum m 150-45 0 low Not Available [facility] [address], [address], 02/03/2020 12:13:28 02/03/20 20 02/03/2020 CBC w/ auto diff MPV 11.5 fL 7.7-12 .2 Not Available [address], [address], 02/03/2020 12:13:28 02/03/20 20 02/03/2020 CBC w/ auto diff diff method Electr onic WBC differ ential count Not Available [facility] [address], [address], 02/03/2020 12:13:28 02/03/2002/03/2020 CBC w/ auto diff seg neutrophils 65 % Not Available [facility] [address], [address], 02/03/2020 12:13:28 02/03/2002/03/2020 CBC w/ auto diff lymphocytes 24 % Not Available [facility] [address], [address], 02/03/2020 12:13:28 02/03/20 20 02/03/2020 CBC w/ auto diff monocytes 9 % Not Available [facility] [address], [address], 02/03/2020 12:13:28 02/03/20 20 02/03/2020 CBC w/ auto diff eosinophils 2 % Not Available [facility] [address], [address], 02/03/2020 12:13:28 02/03/2002/03/2020 CBC w/ auto diff basophils 0 % Not Available [facility] [address], [address], 02/03/2020 12:13:28 02/03/20 20 02/03/2020 CBC w/ auto diff absolute neutrophils 5.35 K/cum m 2.20-6 .40 Not Available [facility] [address], [address], 02/03/2020 12:13:28 02/03/20 20 02/03/2020 CBC w/ auto diff absolute lymphocytes 1.97 K/cum m 1.00-3 .50 Not Available [facility] [address], [address], 02/03/2020 12:13:28 02/03/2002/03/2020 CBC w/ auto diff absolute monocytes 0.73 K/cum m 0.30-0 .80 Not Available [facility] [address], [address], 02/03/2020 12:13:28 02/03/2002/03/2020 CBC w/ auto diff absolute eosinophils 0.19 K/cum m 0.00-0 .20 Not Available [facility] [address], [address], 02/03/2020 12:13:28 02/03/2002/03/2020 CBC w/ auto diff absolute basophils 0.02 K/cum m 0.00-0 .[address] [facility] [address] [facility] [place] [address] Not Available [facility] [address], [address], 02/03/2020 12:13:28 02/03/2002/03/2020 CMP, serum or plasm a sodium 139 mmol/ L 137-14 5 Not Available [facility] [address], [address], 02/03/2020 12:19:26 02/03/2002/03/2020 CMP, serum or plasm a potassium 4.9 mmol/ L 3.5-5. 1 Not Available [facility] [address], [address], 02/03/2020 12:19:26 02/03/2002/03/2020 CMP, serum or plasm a chloride 111 mmol/ L 98-107 high Not Available Asv [address], [address], 02/03/2020 12:19:26 02/03/20 20 02/03/2020 CMP, serum or plasm a CO2 20 mmol/ L 22-30 low Not Available As[facility] [address], [address], 02/03/2020 12:19:26 02/03/2002/03/2020 CMP, serum or plasm a glucose 136 mg/dL 65-99 high If resul t of rando m gluco se > or = 200 or if resul t of fasti ng gluco se is > 125 confi rm Diabe patrick Melli tus diagn osis with secon d gluco se on a . Not Available As[facility] [address], [address], 02/03/2020 12:19:26 02/03/20 20 02/03/2020 CMP, serum or plasm a BUN 22 mg/dL 9-20 high Not Available [facility] [address], [address], 02/03/2020 12:19:26 02/03/20 20 02/03/2020 CMP, serum or plasm a creatinine 1.26 mg/dL 0.66-1 .25 high Not Available [facility] [address], [address], 02/03/2020 12:19:26 02/03/2002/03/2020 CMP, serum or plasm a GFR non amer 66 mL/mi n/1.7 3_M2 >60 Eithe r of the follo wing must be prese nt for >=3 month s to be Chron ic Feliciano y Disea se: -GFR less than 60 for >=3 month s -Albu min to Creat inine Ratio >=30 mg/g or other marke rs of feliciano fajardo e An estim ated GFR chron icall y in the range of 60-89 is categ orize d as mildl y decre ased, which corre spond s to Stage G2 CKD. CKD-E PI equat ion used to estim ate GFR. Not Available [facility] [address] [place] [address], [address], 02/03/2020 12:19:26 02/03/20 20 02/03/2020 CMP, serum or plasm a GFR amer 76 mL/mi n/1.7 3_M2 >60 Eithe r of the follo wing must be prese nt for >=3 month s to be Chron ic Kidne y Disea se: -GFR less than 60 for >=3 month s -Albu min to Creat inine Ratio >=30 mg/g or other marke rs of feliciano fajardo e An estim ated GFR chron icall y in the range of 60-89 is categ orize d as mildl y decre ased, which corre spond s to Stage G2 CKD. CKD-E PI equat ion used to estim ate GFR. Not Available [facility] [address] [place] [address], [address], 02/03/2020 12:19:26 02/03/2002/03/2020 CMP, serum or plasm a ALT 35 U/L <50 Not Available [facility] [address] [place] [address], [address], 02/03/2020 12:19:26 02/03/2002/03/2020 CMP, serum or plasm a AST 42 U/L 17-59 Not Available [facility] [address] [place] [address], [address], 02/03/2020 12:19:26 02/03/2002/03/2020 CMP, serum or plasm a alk phosphatase 74 U/L 38-126 Not Available [facility] [address] [place] [address], [address], 02/03/2020 12:19:26 02/03/2002/03/2020 CMP, serum or plasm a bilirubin total 0.5 mg/dL 0.2-1. 3 Not Available [facility] [address], [address], 02/03/2020 12:19:26 02/03/20 20 02/03/2020 CMP, serum or plasm a protein total 7.4 g/dL 6.3-8. 2 Not Available [facility] [address], [address], 02/03/2020 12:19:26 02/03/20 20 02/03/2020 CMP, serum or plasm a albumin 4.0 g/dL 3.5-5. 0 Not Available [facility] [address], [address], 02/03/2020 12:19:02/03/20 20 02/03/2020 CMP, serum or plasm a calcium 9.2 mg/dL 8.4-10 .[address] [facility] rt Hos[facility] clint [address] [facility] [place] [address] Not Available [facility] [address], [address], 02/03/2020 12:19:26 02/03/20 20 02/03/2020 lipas e, serum or plasm a lipase 316 U/L 23-300 high Testi ng by [facility] rt Hospi clint [address] [facility] [place] [address] Not Available [facility] [address], [address], 02/03/2020 12:19:29 02/23/2002/23/2020 CBC w/ auto diff white blood CT 7.1 K/cum m 3.3-10 .5 Not Available [facility] [address], [address], 02/23/2020 16:01:14 02/23/2002/2202/23/2020 CBC w/ auto diff red blood count 4.45 M/cum m 4.15-5 .75 Not Available [address], [address], 02/23/2020 16:01:14 02/23/20 20 02/23/2020 CBC w/ auto diff hemoglobin 13.7 g/dL 12.8-1 6.9 Not Available [facility] [address], [address], 02/23/2020 16:01:14 02/23/20 20 02/23/2020 CBC w/ auto diff hematocrit 41.3 % 38.8-5 0.2 Not Available [facility] [address], [address], 02/23/2020 16:01:14 02/23/20 20 02/23/2020 CBC w/ auto diff MCV 92.8 fL 80.0-1 05.0 Not Available [facility] [address], [address], 02/23/2020 16:01:14 02/23/20 20 02/23/2020 CBC w/ auto diff MCH 30.8 pg 27.0-3 4.0 Not Available [facility] [address], [address], 02/23/2020 16:01:14 02/23/20 20 02/23/2020 CBC w/ auto diff MCHC 33.2 g/dL 30.5-3 4.5 Not Available [facility] [address], [address], 02/23/2020 16:01:14 02/23/20 20 02/23/2020 CBC w/ auto diff RDW 13.9 % 11.5-1 5.0 Not Available [facility] [address], [address], 02/23/2020 16:01:14 02/23/20 20 02/23/2020 CBC w/ auto diff platelet count 135 K/cum m 150-45 0 low Not Available [address], [address], 02/23/2020 16:01:14 02/23/20 20 02/23/2020 CBC w/ auto diff MPV 12.2 fL 7.7-12 .2 Not Available [address], [address], 02/23/2020 16:01:14 02/23/20 20 02/23/2020 CBC w/ auto diff diff method Electr onic WBC differ ential count Not Available [facility] [address], [address], 02/23/2020 16:01:14 02/23/20 20 02/23/2020 CBC w/ auto diff seg neutrophils 58 % Not Available [facility] [address], [address], 02/23/2020 16:01:14 02/23/20 20 02/23/2020 CBC w/ auto diff lymphocytes 29 % Not Available [facility] [address], [address], 02/23/2020 16:01:14 02/23/20 20 02/23/2020 CBC w/ auto diff monocytes 9 % Not Available [facility] [address], [address], 02/23/2020 16:01:14 02/23/20 20 02/23/2020 CBC w/ auto diff eosinophils 4 % Not Available [address], [address], 02/23/2020 16:01:14 02/23/20 20 02/23/2020 CBC w/ auto diff basophils 0 % Not Available [address], [address], 02/23/2020 16:01:14 02/23/20 20 02/23/2020 CBC w/ auto diff absolute neutrophils 4.14 K/cum m 2.20-6 .40 Not Available [facility] [address], [address], 02/23/2020 16:01:14 02/23/20 20 02/23/2020 CBC w/ auto diff absolute lymphocytes 2.04 K/cum m 1.00-3 .50 Not Available [facility] [address], [address], 02/23/2020 16:01:14 02/23/20 20 02/23/2020 CBC w/ auto diff absolute monocytes 0.63 K/cum m 0.30-0 .80 Not Available [facility] [address], [address], 02/23/2020 16:01:14 02/23/20 20 02/23/2020 CBC w/ auto diff absolute eosinophils 0.29 K/cum m 0.00-0 .20 high Not Available [facility] [address], [address], 02/23/2020 16:01:14 02/23/20 20 02/23/2020 CBC w/ auto diff absolute basophils 0.03 K/cum m 0.00-0 .[address] [facility] Hos[facility] [address] [place] [address] Not Available [facility] [address], [address], 02/23/2020 16:01:14 02/23/20 20 02/23/2020 BMP, serum or plasm a sodium 140 mmol/ L 137-14 5 Not Available [facility] [address], [address], 02/23/2020 16:44:15 02/23/2002/23/2020 BMP, serum or plasm a potassium 5.5 mmol/ L 3.5-5. 1 high Not Available [facility] [address], [address], 02/23/2020 16:44:15 02/23/20 20 02/23/2020 BMP, serum or plasm a chloride 113 mmol/ L 98-107 high Not Available [facility] [address], [address], 02/23/2020 16:44:15 02/23/20 20 02/23/2020 BMP, serum or plasm a CO2 22 mmol/ L 22-30 Not Available [facility] [address], [address], 02/23/2020 16:44:15 02/23/20 20 02/23/2020 BMP, serum or plasm a glucose 152 mg/dL 65-99 high If resul t of rando m gluco se > or = 200 or if resul t of fasti ng gluco se is > 125 confi rm Diabe patrick Melli tus diagn osis with secon d gluco se on a . Not Available [facility] [address], [address], 02/23/2020 16:44:15 02/23/20 20 02/23/2020 BMP, serum or plasm a BUN 28 mg/dL 9-20 high Not Available [facility] [address], [address], 02/23/2020 16:44:15 02/23/20 20 02/23/2020 BMP, serum or plasm a creatinine 1.33 mg/dL 0.66-1 .25 high Not Available [facility] [address], [address], 02/23/2020 16:44:15 02/23/20 20 02/23/2020 BMP, serum or plasm a GFR non amer 62 mL/mi n/1.7 3_M2 >60 Eithe r of the follo wing must be prese nt for >=3 month s to be Chron ic Kidne y Disea se: -GFR less than 60 for >=3 month s -Albu min to Creat inine Ratio >=30 mg/g or other marke rs of kidne y damag e An estim ated GFR chron icall y in the range of 60-89 is categ orize d as mildl y decre ased, which corre spond s to Stage G2 CKD. CKD-E PI equat ion used to estim ate GFR. Not Available [facility] [address] [place] [address], [address], 02/23/2020 16:44:15 02/23/2002/23/2020 BMP, serum or plasm a GFR amer 72 mL/mi n/1.7 3_M2 >60 Eithe r of the follo wing must be prese nt for >=3 month s to be Chron ic Kidne y Disea se: -GFR less than 60 for >=3 month s -Albu min to Creat inine Ratio >=30 mg/g or other marke rs of willne y janesag e An estim ated GFR chron icall y in the range of 60-89 is categ orize d as mildl y decre ased, which corre spond s to Stage G2 CKD. CKD-E PI equat ion used to estim ate GFR. Not Available [facility] [address] [place] [address], [address], 02/23/2020 16:44:15 02/23/2002/23/2020 BMP, serum or plasm a calcium 9.3 mg/dL 8.4-10 .[address] [facility] amspo rt Hospi clint [address] [facility] [place] [address] Not Available [facility] [address] [place] [address], [address], 02/23/2020 16:44:15 02/23/2002/23/2020 C-jose ctive prote in, quant itati ve, serum or plasm a C-reac protein 1.2 mg/dL <1.0 high Testi ng by [facility] amspo rt Hospi clint [address] [facility] [place] [address] Not Available [facility] [address] [place] [address], [address], 02/23/2020 16:44:18 02/23/20 20 02/23/2020 lipas e, serum or plasm a lipase 320 U/L 23-300 high Testi ng by [facility] amspo rt Hospi clint [address] [facility] [place] [address] Not Available Asv - [facility] [address] [place] [address], [address], 02/23/2020 16:44:19 02/23/20 20 02/23/2020 urina lysis , dipst ick specific gravity >1.030 1.005 - 1.030 Not Available Amg - In Office Orders (For Internal Use Only) [address] [place] [address], [address], 02/23/2020 13:14:32 02/23/20 20 02/23/2020 urina lysis , dipst ick pH 5.5 5.0 - 9.0 Not Available Amg - In Office Orders (For Internal Use Only) [address] [place] [address], [address], 02/23/2020 13:14:32 02/23/20 20 02/23/2020 urina lysis , dipst ick leukocytes negati ve negati ve Not Available Amg - In Office Orders (For Internal Use Only) [address] [place] [address], [address], 02/23/2020 13:14:32 02/23/20 20 02/23/2020 urina lysis , dipst ick nitrite negati ve negati ve Not Available Amg - In Office Orders (For Internal Use Only) [address] [place] [address], [address], 02/23/2020 13:14:32 02/23/20 20 02/23/2020 urina lysis , dipst ick protein (mg/dL) 100 negati ve Not Available Amg - In Office Orders (For Internal Use Only) [address] [place], [address], 02/23/2020 13:14:32 02/23/20 20 02/23/2020 urina lysis , dipst ick glucose (mg/dL) negati ve normal Not Available Amg - In Office Orders (For Internal Use Only) [address] [place], [address], 02/23/2020 13:14:32 02/23/20 20 02/23/2020 urina lysis , dipst ick ketones negati ve negati ve Not Available Amg - In Office Orders (For Internal Use Only) [address] [place], [address], 02/23/2020 13:14:32 02/23/20 20 02/23/2020 urina lysis , dipst ick urobilinogen (mg/dL) 0.2 0.2 - 1.0 Not Available Amg - In Office Orders (For Internal Use Only) [address] [place], [address], 02/23/2020 13:14:32 02/23/20 20 02/23/2020 urina lysis , dipst ick bilirubin negati ve negati ve Not Available Amg - In Office Orders (For Internal Use Only) [address] [place], [address], 02/23/2020 13:14:32 02/23/20 20 02/23/2020 urina lysis , dipst ick blood small negati ve Not Available Amg - In Office Orders (For Internal Use Only) [address] [place], [address], 02/23/2020 13:14:32 03/04/20 20 03/04/2020 SARS CoV 2 RNA (COVI D-19) , QL, 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 NO Testi ng by 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? 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 NEGAT LITO RESUL TS MUST BE COMBI PARTH WITH CLINI MOUNA OBSER VATIO NS, PATIE NT HISTO RY, AND EPIDE MIOLO GICAL INFOR MATIO N. PERFO RMANC E OF TMA TESTI NG HAS BEEN VERIF IED BY [facility], UNDER FDA EMERG ENCY USE AUTHO RIZAT ION (EUA) . TESTI NG PERFO RMED USING NAAT (NUCL EIC ACID AMPLI FICAT ION) METHO DOLOG Y. Testi ng by [facility] [address] [place] [address] Not Available v [facility] [address] [place], [address], 03/05/2020 04:33:09 03/28/2003/29/2020 PSA, serum or plasm a PSA, total 0.31 NG/mL <4.00 This test was perfo rmed using the Sieme ns Atell ica Immun oassa y. Value s obtai parth from diffe rent assay metho ds canno t be used inter pressley eably . This assay is indic ated for use as an aid in the detec tion of prost ate cance r when used in conju nctio n with a digit al recta l exam. This assay is also indic ated as an aid in the manag ement of patie nts with prost ate cance r. Sieme ns Atell ica PSA value s shoul d be inter prete d using the AUA guide lines of recur rence as detec table or risin g value post- radic al prost atect thea that is >= 0.2 ng/mL with a secon d confi rm- atory level of >= 0.2 ng/mL . Testi ng by [facility] [address] [place] [address] Not Available [facility] [address], [address], 03/29/2020 01:38:30 03/28/2004/02/2020 testo stero ne, free + total , serum total testosterone _ TNP Unit: ng/dL (NOTE ) TEST NOT PERFO RMED No suita ble speci men recei mata. Not Available [facility] [address], [address], 04/02/2020 01:49:32 03/28/2004/02/2020 testo stero ne, free + total , serum free testosterone _ TNP Unit: pg/mL (NOTE ) TEST NOT PERFO RMED No suita ble speci men recei mata. [facility] [address] [place] [address] Power s James ervin MD Not Available [facility] [address], [address], 04/02/2020 01:49:32 03/29/20 20 04/01/2020 testo stero ne, free + total , serum total testosterone 333 _ Refer ence range : 250 to 1100 Unit: ng/dL (NOTE ) For addit ional infor young higuera refer to http: //[facility] clary ahnque stdia gnost ics.c om/fa q/Tot al Testo stero neLCM SMS (This link is being provi ded for infor courtney nal/e ducat ional purpo ses only. ) This test was devel oped and its edil tical perfo rmanc e zachary cteri stics have been deter mined by [facility]. It has not been clear ed or appro mata by the FDA. This assay has been valid ated pursu ant to the CLIA regul ation s and is used for clini mouna purpo ses. Not Available [facility] [address], [address], 04/01/2020 17:08:11 03/29/20 20 04/01/2020 testo stero ne, free + total , serum free testosterone 35.4 _ Refer ence range : 35.0 to 155.0 Unit: pg/mL (NOTE ) This test was devel oped and its edil tical perfo rmanc e zachary cteri stics have been deter mined by [facility]. It has not been clear ed or appro mata by the FDA. This assay has been valid ated pursu ant to the CLIA regul ation s and is used for clini mouna purpo ses. [facility] [address] [place] [facility] [place] [address] Power s James ervin MD Not Available [facility] [address], [address], 04/01/2020 17:08:11 04/04/20 20 04/05/2020 HbA1c (hemo globi n A1c), blood hemoglobin A1C 7.5 % <5.7 high Not Available [facility] [address], [address], 04/05/2020 00:40:27 04/04/20 20 04/05/2020 HbA1c (hemo globi n A1c), blood comment NOTE (NOTE ) <5.7% Decre ased risk of diabe patrick 5.7-6 .4% Incre ased risk of diabe patrick > OR = 6.5% Consi stent with diabe patrick These Refer ence Inter vals are suppo rted by the [place] [facility] in [facility] [place] in 2016 in the [facility], the Journ al of the Ameri can [facility] patrick Ass[facility] iatio n. Care must be taken when inter preti ng Hemog lobin A1C resul ts from patie nts with hemog lobin varia nts/a bnorm yazmin es. False ly eleva ambrosio or decre ased resul ts may occur . Not Available v [facility] [address], [address], 04/05/2020 00:40:27 04/04/2004/05/2020 HbA1c (hemo globi n A1c), blood est avg glucose 169 mg/dL Testi ng by [facility] [address] [place] [address] Not Available [facility] [address], [address], 04/05/2020 00:40:27 08/19/19 21 08/19/2020 HbA1c (hemo globi n A1c), blood hemoglobin A1C 7.7 % <5.7 high Not Available [facility] [address], [address], 08/19/2020 08:11:53 08/19/1908/19/2020 HbA1c (hemo globi n A1c), blood comment NOTE (NOTE ) <5.7% Decre ased risk of diabe patrick 5.7-6 .4% Incre ased risk of diabe patrick > OR = 6.5% Consi stent with diabe patrick These Refer ence Inter vals are suppo rted by the [place] [facility] in [place] in 2016 in the [facility], the Journ al of the Ameri can [facility] pat[facility] iatio n. Care must be taken when inter preti ng Hemog lobin A1C resul ts from patie nts with hemog lobin varia nts/a bnorm yazmin granados. False ly eleva ambrosio or decre ased resul ts may occur . Not Available [facility] [address] , [place], [address], 08/19/2020 08:11:53 08/19/19 21 08/19/2020 HbA1c (hemo globi n A1c), blood est avg glucose 174 mg/dL Testi ng by [facility] [address] [place] [address] Not Available Asv - [facility] [address] , [place], [address], 08/19/2020 08:11:53 02/03/20 20 02/03/2020 CT, abdom en + pelvi s, w/o contr [facility]AM[facility] AT[facility]: CT ABD/PE LVIS WO/C - ACC #: [id number] CPT: 93390 Mod: RIS Order: [id number] ([facility]) ([id number]) HIS Order: [id number] [facility]-RA D [id number] STARTE D: Feb 03 2020 12:30P M COMPLE AMBROSIO: Feb 03 2020 12:43P M TECH INITIA LS: nosbor FULL RESULT : INDICA TION: Abdomi nal pain. Histor y of pancre atitis and reflux diseas e. TECHNI QUE: CT scan of the abdome n and pelvis was perfor med withou t contra st. DOSE OPTIMI ZATION : This facili ty uses dose optimi zation techni ques as approp riate to perfor m exams, includ ing at least one of the follow ing techni ques: automa ambrosio exposu re contro l, adjust ment of the mA and/or kV accord ing to patien t size (this includ es techni ques or standa rdized protoc ols for target ed exams where dose is matche d to the indica tion/r cheyanne for exam, i.e. extrem ities or head), use of iterat lito recons tructi ve techni que. FINDIN GS: Casino Worker image( s): No notabl e abnorm ality seen outsid e the levels scanne d. Tubes/ Lines (if applic able): No malpos itione d tubes or lines identi fied. Lung bases/ lower medias tinum: No notabl e findin gs seen. Bones: No suspic ious bone lesion s seen. Liver: The liver contou r appear s slight ly nodula r somewh at more appare nt on leon l images . Possib ility of cirrho sis not exclud ed. No focal liver lesion is identi fied on noncon trast study. Gallbl adder: Gallbl adder is absent . Spleen : Unrema rkable . Adrena ls: Unrema rkable . Pancre as: Unrema rkable . Kidney s: No renal or ureter al calcul i or hydron ephros is seen. Bowel/ Stomac h/GE Juncti on: Bowel loops are normal in calibe r. Append ix appear s unrema rkable . Pelvic struct ures: No pelvic mass seen. Retrop eriton eum/no stanislav: No adenop athy seen. Abdomi nal vessel s: Unrema rkable . Perito jessica cavity : No ascite s seen. Periph eral soft tissue s: No periph eral soft tissue mass seen. IMPRES LAURA: 1. No clear explan ation of abdomi nal sympto ms is identi fied. No eviden ce of pancre atitis is seen. No urinar y tract calcul i are seen. 2. The liver contou r appear s slight ly nodula r. Possib ility of cirrho sis not exclud ed. PQRS: [id number] ELECTR ONICAL LY SIGNED BY: IVANIA KNOWLES M.D. Feb 03 2020 2:45PM Dictat ed: Feb 03 2020 1:30PM CALSAL Transc ribed: Feb 03 2020 1:38PM nosbor Disper sed: Feb 03 2020 2:45PM Attend ing Dr: SILVIA MASCORRO Admitt ing Dr: SILVIA MASCORRO Primar y Care: NHI EATON onal Doctor (s): ELECTR ONICAL LY SIGNED BY: IVANIA KNOWLES M.D.Se p 9 2019 2:45PM Right> Left Flank pain, +hemat uria^ [facility] [address], [place], [address], 02/05/2020 09:12:27 Result Notes None recorded. Problems Name Problem SNOMED Code Status Onset Date Resolution Date Notes Provider Name and Address Organization Details Recorded Time Diabetes mellitus 32775721 Active 2017 Nhi Gaxiola [employer] [address], [place], [address], [place] [facility] [place] 8 14:10:28 Essential hypertensio n 46675669 Active 2017 hNi Gaxiola [employer] [address], [address], [place], [address], [place] [facility] [place] 8 14:10:37 Neuropathy due to diabetes mellitus 674668262 Active 2018 Nhi Gaxiola [employer] [address], [address], [place], [address], [place] [facility] [place] 9 15:58:31 Pancreatiti s 35286711 Active 2018 Nhi Gaxiola [employer] [address], [address], [place], [address], [place] [facility] [place] 9 11:18:27 Hypertrigly ceridemia 013042772 Active 2018 Nhi Gaxiola [employer] [address], [address], [place], [address], [place] [facility] [place] 9 13:06:44 Impotence Active 2018 Nhi Gaxiola [employer] [address], [address], [place], [address], [place] - [facility] [place] 9 16:21:02 Neuropathy 935788717 Active 2018 Nhi Gaxiola NP [address], [address], [place], [address], [place] [facility] [place] 9 16:21:03 Noncomplian ce with treatment 3252674 Active 2018 Nhi Gaxiola [employer] [address], [address], [place], [address], [place] - [facility] [place] 9 16:21:20 Diverticuli tis 407311772 Completed 201801/23/2019 Nhi Gaxiola [employer] [address], [address], [place], [address], [place] - [facility] [place] 9 16:23:54 Gastroesoph ageal reflux disease 751430001 Active [address] [facility], [place] - [facility] [place] 0 08:48:30 Inguinal pain 613774465 Active 2019 Ankita E Santos [employer] [address], [place], [address], [place] - [facility] [place] 0 12:16:00 Hand wart 599250009 Active 2019 Ankita E Santos [employer] [address], [place], [address], [place] - [facility] [place] 0 07:17:38 Erectile dysfunction due to diabetes mellitus 532971398 Active 2019 Ankita E Santos [employer] [address], [address], [place], [address], [place] - [facility] [place] 0 07:26:36 Obesity 559828866 Active 2019 Ankita E Santos [employer] [address], [address], [place], [address], [place] - [facility] [place] 0 07:36:50 Pneumococca l vaccination declined 191485443 Active 2019 Ankita E Santos [employer] [address], [address], [place], [address], [place] - [facility] [place] 0 14:22:39 Mixed anxiety and depressive disorder 051743435 Active 2019 Ankita E Santos [employer] [address], [address], [place], [address], [place] - [facility] [place] 0 05:24:33 Fatigue 41468684 Active 2019 Ankita E Santos [employer] [address], [address], [place], [address], [place] - [facility] [place] 0 05:24:34 Restless sleep 59972290 Active 2019 Ankita E Santos [employer] [address], [address], [place], [address], [place] - [facility] [place] 0 05:24:35 Allergic rhinitis 39027982 Active 2019 Ankita E Santos [employer] [address], [address], [place], [address], [place] - [facility] 0 05:24:37 Serum creatinine above reference range 436240521 Active 2019 Ankita E Santos [employer] [address], [address], [place], [address], [place] - [facility] 0 05:24:43 Vitamin D deficiency 62597570 Active 2019 Ankita E Santos [employer] [address], [address], [place], [address], [place] - [facility] [place] 0 05:26:09 Abdominal pain 73019841 Active 2019 Ankita E Santos [employer] [address], [place], [address], [place] - [facility] 0 15:18:19 Problem Notes None recorded. Procedures Surgical History Date Name Laterality Status Provider Name and Address Organization Details Recorded Time 04/25/20 20 Cryosurgery Wart(s) completed Ankita E Santos [employer] [address], [place], [address], [place] - [facility] 04/25/2020 15:35:07 02/12/20 20 Cryosurgery Wart(s) completed Ankita E Santos [employer] [address], [place], [address], [place] [facility] 02/15/2020 05:38:33 01/22/20 20 Cryosurgery Wart(s) completed Ankita E Santos [employer] [address], [place], [address], [place] [facility] 01/24/2020 07:33:57 05/27/19 10 Cholecystectomy completed Ebony Dorado [employer] [place] [facility] 12/09/2017 14:57:44 Imaging Results None recorded. Procedure Notes None recorded. Medical Equipment None Reported. Allergies Allergen ID Allergen Name Allergen Category Reaction Reaction Severity Criticality Documentation Date Start Date Code Code System Note Provider Name and Address Organization Details Recorded Time 577779 shrimp allergeni c extract food Not available Not available Not available 12/09/2017 06036 2 RxNorm Ebony Dorado [employer] null, [place] [facility] 8 14:53:19 [id number] Toradol medicatio n Not available Not available Not available 06/03/2018 23027 RxNorm Cause patie nt to be sick. Ebony Dorado [employer] null, [place] [facility] 9 15:28:36 Medications Name Sig Start Date Stop Date Status Note LastModified by Organization Details LastModified Time amoxicill in 500 mg capsule TK ONE C PO Q 12 H 12/09 completed Not Available Not Available Not Available venlafaxi ne ER 37.5 mg capsule,e xtended release 24 hr TAKE 1 CAPSULE BY MOUTH EVERY DAY 01/21 completed Not Available Not Available Not Available clonidine HCl 0.1 mg tablet Take 1 tablet by oral route for 1 day. 07/10 completed Not Available Not Available Not Available cetirizin e 10 mg tablet Take 1 tablet every day by oral route for 30 days. 03/31 completed Not Available Not Available Not Available metoprolo l succinate ER 50 mg tablet,ex tended release 24 hr TAKE 1 TABLET BY MOUTH EVERY DAY IN THE EVENING active Not Available Not Available No t Available hydrocodo ne 5 mg-acetam inophen 325 mg tablet 02/22 completed Not Available Not Available Not Available meloxicam 15 mg tablet Take 1 tab by mouth every day with food. 02/22 completed Not Available Not Available Not Available glipizide 10 mg tablet TAKE ONE TABLET BY MOUTH TWICE DAILY 04/16 completed Not Available Not Available Not Available prednison e 20 mg tablet TAKE ONE TABLET BY MOUTH EVERY DAY FOR 5 DAYS 09/10 completed Not Available Not Available Not Available Lantus U-100 Insulin 100 unit/mL subcutane ous solution Inject 70 units every day by subcutan eous route at bedtime. 01/30 completed Not Available Not Available Not Available sumatript an 50 mg tablet TAKE ONE DOSE WHEN HEADACHE STARTED THEN IF STILL PRESENT IN 2 HOURS CAN TAKE ONE OTHER DOSE active Not Available Not Available No t Available penicilli n V potassium 500 mg tablet TAKE 1 TABLET BY MOUTH EVERY 6 HOURS FOR 10 DAYS 09/10 completed Not Available Not Available Not Available sulfameth oxazole 800 mg-trimet hoprim 160 mg tablet TAKE 1 TABLET BY MOUTH TWICE A DAY active Not Available Not Available No t Available sildenafi l 25 mg tablet TAKE 1 TABLET BY MOUTH TWO TIMES A DAY NEEDED 2020 active Not Available Not Available Not Avai lable tramadol 50 mg tablet TAKE ONE TABLET BY MOUTH EVERY 4 HOURS 01/23 completed Not Available Not Available Not Available ketorolac 30 mg/mL (1 mL) injection solution Inject 2 mL by intramus cular route. 05/05 completed Not Available Not Available Not Available oxycodone -acetamin ophen 5 mg-325 mg tablet TAKE ONE TABLET BY MOUTH EVERY 4 HOURS NEEDED FOR moderate TO SEVERE pain 01/23 completed Not Available Not Available Not Available benzonata te 100 mg capsule 09/10 completed Not Available Not Available Not Available hydrocodo ne 7.5 mg-acetam inophen 325 mg tablet Take 1 tablet twice a day by oral route for 30 days. active Not Available Not Available No t Available pantopraz ole 40 mg tablet,de layed release TAKE ONE DAILY BY MOUTH 04/04 completed Not Available Not Available Not Available prednison e 50 mg tablet TAKE ONE TABLET BY MOUTH DAILY FOR 5 DAYS 01/23 completed Not Available Not Available Not Available gabapenti n 300 mg capsule Take 1 capsule twice a day by oral route for 7 days. active Not Available Not Available No t Available triamtere ne 37.5 mg-hydroc hlorothia zide 25 mg tablet TAKE 1 TABLET BY MOUTH EVERY DAY 06/07 completed Not Available Not Available Not Available omeprazol e 20 mg capsule,d elayed release Take 1 capsule every day by oral route for 30 days. 01/30 completed Not Available Not Available Not Available lisinopri l 20 mg-hydroc hlorothia zide 25 mg tablet TAKE 2 TABLETS BY MOUTH ONE TIME A DAY 01/30 completed Not Available Not Available Not Available hydrochlo rothiazid e 25 mg tablet TAKE 1 TABLET BY MOUTH EVERY DAY active Not Available Not Available No t Available metoprolo l succinate ER 25 mg tablet,ex tended release 24 hr TAKE 1 TABLET BY MOUTH EVERY DAY 07/05 completed Not Available Not Available Not Available lisinopri l 40 mg tablet TAKE 1 TABLET BY MOUTH EVERY DAY active Not Available Not Available No t Available ondansetr on 4 mg disintegr ating tablet TK 1 T PO Q 8 H PRF NAUSEA 12/09 completed Not Available Not Available Not Available fluticaso ne propionat e 50 mcg/actua tion nasal spray,noel pension spray 1 spray in each nostril EVERY DAY 09/10 completed Not Available Not Available Not Available amoxicill in 875 mg-potass ium clavulana te 125 mg tablet TAKE ONE TABLET BY MOUTH TWICE DAILY 01/23 completed Not Available Not Available Not Available esomepraz ole magnesium 20 mg capsule,d elayed release TAKE 1 CAPSULE BY MOUTH EVERY DAY 2020 active Not Available Not Available Not Avai lable metaxalon e 800 mg tablet TAKE ONE TABLET BY MOUTH every 8 hours NEEDED FOR pain 09/10 completed Not Available Not Available Not Available Novolog FlexPen U-100 Insulin aspart 100 unit/mL (3 mL) subcutane ous Inject 35 units 3 times a day by subcutan eous route. 2019 active Not Available Not Available Not Avai lable fenofibra te 160 mg tablet TAKE ONE TABLET BY MOUTH EVERY DAY 12/03 completed Not Available Not Available Not Available sildenafi l (pulmonar y hypertens ion) 20 mg tablet TAKE 1-5 TABLETS BY MOUTH NEEDED 30 MINUTES BEFORE SEXUAL ACTIVITY 03/31 completed Not Available Not Available Not Available BD Ultra-Fin e Short Pen Needle 31 gauge x /16 USE DIRECTED active Not Available Not Available No t Available FreeStyle Lite Strips CHECK BLOOD SUGAR FOUR TIMES DAILY active Not Available Not Available No t Available fenofibra te 54 mg tablet TAKE 1 TABLET BY MOUTH EVERY DAY 2020 active Not Available Not Available Not Avai lable Levemir FlexTouch U-100 Insulin 100 unit/mL (3 mL) subcutane ous pen 80 UNITS TWICE DAILY active Not Available Not Available No t Available Trulicity 1.5 mg/0.5 mL subcutane ous pen injector inject 0.5 ML SUBCUTAN EOUSLY EVERY WEEK 04/16 completed Not Available Not Available Not Available Basaglar KwikPen U-100 Insulin 100 unit/mL (3 mL) subcutane ous Please specify directio ns, refills and quantity active Not Available Not Available No t Available Ozempic 0.25 mg or 0.5 mg (2 mg/1.5 mL) subcutane ous pen injector INJECT 0.5 MG SUBCUTAN EOUSLY WEEKLY active Not Available Not Available No t Available Admelog SoloStar U-100 Insulin lispro 100 unit/mL subcutane ous pen INJECT 35 UNITS 3 TIMES A DAY SUBCUTAN EOUSLY active Not Available Not Available No t Available cannabidi ol (CBD) oral oil Take by oral route. 03/31 completed One dropper full daily. Not Available Not Available Not Available Novolin N FlexPen 100 unit/mL (3 mL) subcutane ous insulin pen INJECT 35 UNITS SUB-Q 3 TIMES DAILY 03/24 completed Not Available Not Available Not Available Vitals Date Recorded Body height Body mass index (BMI) Body weight Respiratory rate Body temperature Heart rate Oxygen saturation Oxygen saturation in Arterial blood by Pulse oximetry Systolic blood pressure Diastolic blood pressure Provider Name and Address Organization Details Last Updated DateTime 1 171.45 cm 39.7 kg/m2 163337. 99 g 18 /min 98.7 [degF] 82 /min 96 % 96 % 164 mm[Hg] 94 mm[Hg] Ebony Loyolachloé [facility] [place] [facility] 1 16:06:02 Date Recorded Body height Body mass index (BMI) Body weight Respiratory rate Body temperature Heart rate Oxygen saturation Oxygen saturation in Arterial blood by Pulse oximetry Systolic blood pressure Diastolic blood pressure Provider Name and Address Organization Details Last Updated DateTime 0 171.45 cm 37.1 kg/m2 736964. 57 g 18 /min 98.2 [degF] 82 /min 98 % 98 % 140 mm[Hg] 80 mm[Hg] Justina Brett Ramirez [facility] [place] [facility] 0 13:05:28 Date Recorded Body height Body mass index (BMI) Body weight Body temperature Respiratory rate Heart rate Oxygen saturation Oxygen saturation in Arterial blood by Pulse oximetry Systolic blood pressure Diastolic blood pressure Provider Name and Address Organization Details Last Updated DateTime 0 171.45 cm 37.6 kg/m2 578576. 4 g 98.7 [degF] 18 /min 80 /min 96 % 96 % 136 mm[Hg] 86 mm[Hg] Ebony Flaurr [facility] [place] [facility] 0 15:30:45 Date Recorded Body height Body mass index (BMI) Body weight Respiratory rate Body temperature Oxygen saturation Oxygen saturation in Arterial blood by Pulse oximetry Heart rate Systolic blood pressure Diastolic blood pressure Provider Name and Address Organization Details Last Updated DateTime 0 171.45 cm 38 kg/m2 966779. 72 g 16 /min 97.4 [degF] 97 % 97 % 88 /min 148 mm[Hg] 90 mm[Hg] Sherry Feliz [facility] 0 14:46:37 Date Recorded Body height Respiratory rate Body mass index (BMI) Body weight Body temperature Heart rate Oxygen saturation Oxygen saturation in Arterial blood by Pulse oximetry Systolic blood pressure Diastolic blood pressure Provider Name and Address Organization Details Last Updated DateTime 0 171.45 cm 18 /min 38 kg/m2 089579. 47 g 99.1 [degF] 87 /min 97 % 97 % 130 mm[Hg] 82 mm[Hg] Eobny Flaurr [facility] [place] [facility] 0 13:45:11 Social History Question Answer Notes LastModified by Organizat ion Details LastModified Time Tobacco Smoking Status Never Smoker Ebony Dorado CMA null, [place] [facility] 12/09/2017 14:56:50 What Is Your Level Of Caffeine Consumption? None [email or web address] Information not available 07/10/2018 In The 14 Days Before Symptom Onset, Have You Had Close Contact With A Laboratory-confirm ed COVID-19 While That Case Was Ill? No Information n ot available 06/07/2020 In The 14 Days Before Symptom Onset, Have You Had Close Contact With A Person Who Is Under Investigation For COVID-19 While That Person Was Ill? No Information not available 05/05/2020 Have You Been To An Area Known To Be High Risk For COVID-19? No Information not available 05/05/2020 What Type Of Diet Are You Following? REGULAR [email or web address] Information n ot available 07/10/2018 Which Illicit Or Recreational Drugs Have You Used? None [email or web address] Information not available 07/10/2018 Education 12 [email or web address] Information no t available 07/10/2018 Hard Of Hearing Or Deaf In One Or Both Ears? No [email or web address] Information not available 07/10/2018 Have You Had Sexual Relations With Anyone Who Has Been Positively Diagnosed With Zika Virus Within The Last 6 Months? No Information n ot available 05/05/2020 Legally Blind In One Or Both Eyes? No [email or web address] Information no t available 07/10/2018 Have You Had A Fever And/or Symptoms Of A Lower Respiratory Illness (cough, Difficulty Breathing, Etc)? No Information not available 06/07/2020 Have You Had Any Of These Symptoms: Chills ,Headache, Fatigue, Muscle Or Body Aches , Sore Throat, New Loss Of Taste Or Smell, Nausea Or Vomiting, Or Diarrhea? No Information not available 06/07/2020 Marital Status Single [email or web address] Informatio n not available 07/10/2018 What Was The Date Of Your Most Recent Tobacco Screening? 06/07/2020 Information not available 06/07/2020 Performs Monthly Self-breast Exam? No [email or web address] Information no t available 07/10/2018 Seat Belts Used Routinely Yes [email or web address] Information not available 07/10/2018 Smoke Alarm In Home Yes [email or web address] Information not available 07/10/2018 How Much Tobacco Do You Smoke? No Information not available 06/03/2018 General Stress Level High [email or web address] Information not available 07/10/2018 How Many Years Have You Smoked Tobacco? 0 Information not available 06/03/2018 Do You Have Symptoms Associated With Zika Virus (fever, Rash, Joint Pain, Or Conjunctivitis)? No Information not available 06/07/2020 Have You Recently (within The Last 12 Weeks, Or During A Current ) Traveled To Or Lived In A Zika-affected Area? No Information not available 06/07/2020 Sex: Unknown Functional Status Question Answer Note LastModified by Organizat ion Details LastModified Time What is your level of alcohol consumption? None [email or web address] Information not available 07/10/2018 Do you or have you ever used smokeless tobacco? Never used smokeless tobacco Information not available 03/31/2019 Are you able to walk? 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 Never used electronic cigarettes Information not available 03/31/2019 Mental Status None recorded. Family History Relationship Description Onset Age of this Age Resolved Age Notes LastModified by Organization Details LastModified Time Father No current problems or disability [email or web address] Not available 03/31 15:54:44 Mother No current problems or disability [email or web address] Not available 03/31 15:54:44 Medical History No medical history recorded. Immunizations Vaccine Type Date Status Note Provider Nam e and Address Organization Details Recorded Time Tdap 9 completed Not Available [facility] 06/14/2019 02:32:31 Influenza, split virus, quadrivalent , PF 9 cancelled patient objection Not Available [facility] 06/13/2019 04:07:16 Past Encounters Encounter ID Performer Location Encounter Start Date Encounter Closed Date Diagnosis/Indication Diagnosis SNOMED-CT Code Diagnosis ICD10 Code Diagnosis Note [id number] Nhi Craigin [employer] IND_WIL_W [facility]_DOC [address] [place] [address] 12/09/2017 14:36:16 12/09/2017 15:52:41 Adult health examination 476059073 Z00.00 Obesity 365953302 E66.9 Vitamin D deficiency 347 37219 E55.9 Fatigue 54280194 R53.83 Diabetes mellitus 128681 09 E11.9 Gastroesop hageal reflux disease 061330061 K21.9 [id number] Nhi Gaxiola [employer] IND_WIL_W [facility]_DOC [address] [facility] [address] 01/30/2018 13:04:01 01/30/2018 14:09:09 Left upper quadrant pain 062987643 R10.12 Diabetes mellitus 592131 09 E11.9 A1C 10.8 Diarrhea 27912483 R19.7 Imodium Impotence 648937940 N52. 9 trying jose root supplement s bought over the internet [id number] Nhi Gaxiola [employer] IND_WIL_W [facility]_DOC [address] [place] [address] 06/03/2018 15:22:13 06/04/2018 09:25:14 Osteoarthritis of ankle and/or foot 73208647 M19.079 Impotence 145120693 N52. 9 Seasonal allergy 6553413 04 J30.2 Neuropathy due to diabetes mellitus 306607617 E11.40 Body mass index 30+ - obesity 706766583 Z68.37 Abnormal weight gain 161 018490 R63.5 [id number] Nhi Gaxiola [employer] IND_WIL_W SC_DOC [address] [place] [address] 07/10/2018 10:57:33 07/10/2018 13:02:16 Follow-up visit 982090818 Z09 Essential hypertension 52779708 I10 Acute pancreatitis 19988 6007 K85.90 Body mass index 30+ - obesity 942085768 Z68.38 Headache 55341728 R51 Edema of l ower extremity 939822629 R60.0 [id number] Nhi Gaxiola [employer] IND_WIL_W [facility]DOC [address] [place] [address] 01/23/2019 15:24:42 01/29/2019 12:46:53 Essential hypertension 63287105 I10 Impotence 226186382 N52. 9 Hypertriglyceridemia 302 969064 E78.1 Neuropathy 047970373 G62 .9 Diabetes mellitus 783125 09 E11.9 Adult heal th examination 219070699 Z00.00 Active or passive immunization 961817536 Z23 Noncomplia nce with treatment 4212536 Z91.19 [id number] Nhi Gaxiola [employer] IND_WIL_W SC_DOC [address] [place] [address] 03/31/2019 15:37:52 03/31/2019 17:32:53 Hypertriglyceridemia 273516278 E78.1 Neuropathy 197794868 G62 .9 Essential hypertension 04131889 I10 Diabetes mellitus 697853 09 E11.9 Gastroesop hageal reflux disease 566214359 K21.9 Vaccine de clined by patient 4459072319 02 Z28.21 Noncomplia nce with medication regimen 894466634 Z91.14 [id number] Nhi Gaxiola [employer] IND_WIL_W SC_DOC [address] [place] [address] 09/11/2019 15:18:49 09/14/2019 09:00:09 Diabetes mellitus 19938851 E11.9 Noncomplia nce with treatment 2001780 Z91.19 Essential hypertension 83817265 I10 Neuropathy due to diabetes mellitus 320276426 E11.40 Gastroesop hageal reflux disease 858793942 K21.9 Hypertriglyceridemia 302 969935 E78.1 [id number] Nhi Gaxiola [employer] IND_WIL_W SC_DOC [address] [place] [address] 12/04/2019 12:52:07 12/04/2019 13:41:36 Urinary incontinence 186797391 R32 Mixed anxi ety and depressive disorder 985461034 F41.8 Impotence 817263681 N52. 9 Diabetes mellitus 356677 09 E11.9 Essential hypertension 21597867 I10 [id number] Ankita Graham [employer] IND_WIL_W SC_DOC [address] [place] [address] 01/22/2020 11:23:24 01/25/2020 10:33:31 Inguinal pain 667311052 R10.2 Hand wart 863796252 B07. 8 Erectile d ysfunction due to diabetes mellitus 930510801 N52.1 Obesity 187049703 E66.9 [id number] Ankita Graham [employer] IND_WIL_W [facility]_DOC [address] [place] [address] 02/12/2020 13:38:05 02/15/2020 08:18:24 Pneumococcal vaccination declined 288473496 Z28.21 Adult heal th examination 532348823 Z00.01 Diabetes mellitus 598893 09 E11.40 Serum crea tinine above reference range 869814942 R79.89 Hand wart 657032179 B07. 8 Allergic rhinitis 812990 04 J30.9 Restless sleep 50619141 G47.9 Fatigue 53974800 R53.83 Mixed anxi ety and depressive disorder 248832635 F41.8 Vitamin D deficiency 347 52888 E55.9 Viral screening 99620109 4 Z11.59 Erectile d ysfunction due to diabetes mellitus 290725503 N52.1 Neuropathy due to diabetes mellitus 936950894 E11.40 Essential hypertension 64946956 I10 Gastroesop hageal reflux disease 554088858 K21.9 Obesity 391637449 E66.9 [id number] Simone Roque MD IND[facility]WIL_W [facility]DOC [address] [facility] [address] 02/23/2020 12:50:40 02/23/2020 15:19:11 Blood in urine 11791150 R31.9 Diarrhea 93652028 R19.7 Abdominal pain 17998619 R10.9 Pain of ri ght testicle 2361290130 2955517 N50.811 Primary er ectile dysfunction 588570132 N52.9 [id number] Nhi Gaxiola [employer] IND_WIL_W SC_DOC [address] [place] [address] 04/04/2020 15:18:58 04/04/2020 16:15:11 Diabetes mellitus 87789438 E11.9 Essential hypertension 45723870 I10 Gastroesop hageal reflux disease 243867892 K21.9 Hypertriglyceridemia 302 683696 E78.1 Neuropathy 260969993 G62 .9 Blood in urine 40828010 R31.9 Noncomplia nce with treatment 2872882 Z91.19 Impotence 481061702 N52. 9 [id number] Ankita Graham [employer] IND[facility]WIL[facility]W SC[facility]DOC [address] [facility] [place] [address] [place] [address] 04/25/2020 14:05:15 04/25/2020 17:49:59 Essential hypertension 11683229 I10 Abdominal pain 00038544 R10.9 New daily persistent headache 5681038473 40541 G44.52 Hand wart 725017246 B07. 8 [id number] Nhi Gaxiola [employer] IND[facility]WIL[facility]W SC[facility]DOC [address] [facility] [place] [address] [place] [address] 05/05/2020 13:30:55 05/05/2020 14:10:20 Low back pain 849583649 M54.5 Pain of ri ght testicle 5906146276 6689996 N50.811 [id number] Nhi Gaxiola [employer] IND_WIL_W SC_DOC [address] [facility] [place] [address] [place] [address] 7 06/07/2020 15:54:49 06/08/2020 10:28:17 Essential hypertension 65782587 I10 Migraine 71648184 G43.90 9 Health Concerns Section Related Observation LastModified by Organization Detai ls LastModified Time None Recorded Concern Status LastModified by Organization Details LastModified Time None Recorded Advance Directives Directive None Recorded Payers Insurance Date Sequence Insurance Name Policy Number Policy Melvin Covered Member ID Melvin Member ID Guarantor Name 01/28/2018 1 [employer] [place]MEDICAID HMO) [facility] Guido Whalen [id number] Guido Whalen 02/17/2018 2 *SELF PAY* Do blayne Whalen 10/17/2020 1 [employer] [place] [facility] Guido Whalen [id number] Guido Hines Whalen 10/07/2019 3 [place] - TRADITIONAL FFS Guido Whalen 0 Guido rWightrell 04/04/2020 1 [place] [id number] Guido Whalen [id number] Guido Wrightrell 12/09/2017 1 [employer] [place] Guido Wrightrell [id number] Guido Whalen Notes Date Note Type Note Provider Name and Address Organization Details Recorded Time 02/23/2020 text/html Sick Visit #Repo rted bypatient.Presentation :Patient presents for follow up of:; He has seen [facility], and ER in [place] and has also seen Dr Quezada. (02/14/2020) CT of abd AND pelvis - basically nl US of abdomen 18 months ago - fatty liver Severity:pain is moderate; pain level 5-6 / 10 Context:no sick contacts; no foreign travel; no recent antibiotics; no daycare environment;smoker; marijuana Associated Symptoms:no sputum production; no shortness of breath; no wheezing; no sweats; no fever; no sore throat; no nausea; no vomiting; no diarrhea; no rash; no swollen glands; no myalgias; no cough; no chest pain Simone Roque MD [address] , [address], [facility] [place], [address], [place] - [facility] 02/23/2020 16:12:04 04/04/2020 text/html 49 yo patient pr esents for f/u on HTN, DM HTN: Lisinopril, HCTZ - Dr. Roque took patient off of triamterene-- increased stress r/t work, x-GF, and health - denies CP, SOB, ESCOBEDO, dizziness, lightheaded, or swelling - BP today 136/86 DM: Admelog 35 TID (only takes BID r/t being at work), Levemir 80 units BID, ozempic - A1C 9.9 ----- 09/2019 -- worse -- has not gotten lab work completed - Saw rody Hale with [facility] 05/2019 --Started on Ozempic --- f/u on 09/16/2019- FBS: meter broke --- could not afford an new one - tring to eat healthy --- busy at work and home GERD: esomeprazole - gets OTC ---- takes everyday ---denies any flare ups Neuropathy: Gabapentin - r/t uncontrolled DM --- feet always are tight and painful but also r/t new job Impotence: sildenafil - only taking when sexually active - has not picked up medication r/t pharm saying they did not have it--- they do HDL: fenofibrate - Chol 166, TG 282, HDL 25--- improved - decreased fenofibrate per Dr. Roque Ejaculation issues x 2-3 months - currently seeing Dr. Quezada r/t bladder issues --- testicular US 01/26/2020- patient states that when he gets off urine is coming with it --- does not happen every time - increased stressed, hx of DM, HTN, ED- wants urine checked because he is always seeing orange Annual due 01/2021 A1C due --- completing today Tdap 2019 Refused Flu and PNA Nhi Gaxiola [employer] [address] , [address], [place], [address], [place] - [facility] 04/04/2020 16:10:35 04/25/2020 text/html Per pt.: -Has had headache x 3 wks. -BP was 220/124 last week 160/114 on Thanksgiving -Sometimes chest hurts when BP elevated -Has been taking BP meds as ordered -Denies fevers or SOB -Denies N/V. Chronic occ. diarrhea -Cont. to have abdominal pain and test he had done showed he may have cirrhosis (CT scan 02/03/20) -Urology surgery cancelled d/t surgeon out of network. Needs new surgeon -Would like wart on left hand treated again. Other wart went away after last tx. Ankita Graham [employer] [address], [address], [facility], [address], [place] - [facility] 04/25/2020 15:37:11 05/05/2020 text/html Back Pain*Report ed bypatient.Location:rachel n is not radiating Quality:sharp; burning/stabbing Severity:worsening;rachel n level 7/10;moderate (5-7) Duration:chronic Onset/Timin-5 months Context:r/t testicular pain Aggravating Factors:movement/posit ioning;twisting;flexin g back;extending back Associated Symptoms:no fever; no weak limbs; no numbness of the legs/feet; no tingling; no incontinence; no shortness of breath 49 yo in for lower back pain- patient was given norco from Dr. Roque r/t testicle pain- Dr. 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 [employer] Nhi Gaxiola [employer] [address] [place] [address], [facility] [address], [place], [address], [place] [facility] 05/05/2020 14:04:15 06/07/2020 text/html HeadacheReported bypatient.Location:occ ipital; temporal Quality:not the worst headache ever; similar to previous headaches;throbbing;pa in Severity:moderate; pain level 7/10 Duration:constant Onset/Timing:abrupt onset Context:not related to trauma Associated Symptoms:no vomiting; no sensitivity to light; tearing/watery eyes; no confusion; no slurred speech; no preceeding aura; no double vision; normal feeling/sensation; no motor paralysis; no sleep disturbances; no nosebleeds; no hoarseness; no sore throat; no hearing loss;nausea;dizziness 49 yo in for ESCOBEDO x 2 weeks Nhi Gaxiola 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
--- OUTSIDE RECORDS SUMMARY | 2024-11-24 14:52 | XMS_ITS | Encounter Summary ---
Author Organization [facility] Address [address] [place] [address] Care Team Providers Care Male Impersonator Name Role Phone Unavailable Primary Care Provider Unavailabl e Encounter Details Date Type Department Care Team (Late st Contact Info) Description 11/18/2024 Prep for Surgery [facility] [address] [facility] [address] [place] [phone] Paty Vazquez DO [address] [facility] [address] [place] [phone] Heart failure, unspecified HF chronicity, unspecified heart failure type (CMS/HCC) (Primary Dx); NSTEMI (non-ST elevated myocardial infarction) (CMS/HCC); Insulin dependent type 2 diabetes mellitus ([facility]/HCC) Social History Tobacco Use Types Packs/Day Years [...] on file documented as of this encounter Plan of Treatment Upcoming Encounters Date Type Department Care Team (Latest Contact Info) Description 12/03/2024 7:59 AM CDT Hospital Encounter [facility] 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 [address] Paty Vazquez, DO [address] [place] [address] Heart failure (CMS/HCC) 12/03/2024 7:59 AM CDT - 12/03/2024 8:55 AM CDT Surgery [facility] 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 [id number] Paty Vazquez, DO [address] [place] [address] Left heart cath 12/11/2024 8:00 AM CDT Office Visit [facility] [address] [phone] Paty Zepeda MD [address] [phone] Scheduled Procedures Name Priority Associated Diagnoses Date/Ti me LEFT HEART CATHETERIZATION Heart failure (CMS/HCC) 12/03/2024 7:59 AM CDT documented as of this encounter Visit Diagnoses Diagnosis Heart failure, unspecified HF chronicity, unspecified heart failure type (CMS/HCC)- Primary NSTEMI (non-ST elevated myocardial infarction) (CMS/HCC) Acute myocardial infarction, subendocardial infarction, episode of care unspecified Insulin dependent type 2 diabetes mellitus (CMS/HCC) Type II or unspecified type diabetes mellitus without mention of complication, not stated as uncontrolled Heart failure (CMS/HCC) Heart failure, unspecified documented in this encounter
--- OUTSIDE RECORDS SUMMARY | 2024-11-24 14:52 | XMS_ITS | Clinical Summary ---
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 Name Role Phone Unavailable Primary Care Provider Unavailabl e Social History Tobacco Use Types Packs/Day Years Used Date Smoking Tobacco: Never Assessed Sex and Gender Information Value Date Recorded Sex Assigned at Not on file Legal Sex Male 2:26 PM CDT Gender Identity Not on file Sexual Orientation Not on file Plan of Treatment Health Maintenance Due Date Last Done Comments DTAP/TDAP/TD VACCINES (1 - Tdap) 1988 HEPATITIS B VACCINES (1 of 3 - 19+ 3-dose series) 09/1988 COLORECTAL SCREENING 2014 Colorectal Cancer Screening 2014 FIT-DNA Q 3 years 2014 FIT/FOBT Q 1 year 2014 Flex Sig/CT Colonography Q 5 years 2014 ZOSTER VACCINE (1 of 2) 2019 INFLUENZA VACCINE (#1) 2023
--- NOTE | 2024-11-24 15:02 | XRR_ITS ---
PROCEDURE INFORMATION: Exam: XR Chest Exam date and time: 11/24/2024 3:19 PM Age: 54 years old Clinical indication: Shortness of breath; Additional info: SOB TECHNIQUE: Imaging protocol: Radiologic exam of the chest. Views: 1 view. COMPARISON: CR XR chest 1V portable [id number] 09/15/2024 4:20 PM FINDINGS: Tubes, catheters and devices: Right-sided central venous catheter with its distal tip in the superior atriocaval junction. Lungs: Improved patchy bilateral airspace opacities with mild residual amounts remaining. No focal new airspace abnormality. Pleural spaces: Unremarkable. No pleural effusion. No pneumothorax. Heart/Mediastinum: Unremarkable. No cardiomegaly. Bones/joints: Unremarkable. XR/XR chest 1V portable [id number] IMPRESSION: As above.
--- NOTE | 2024-11-24 15:03 | W.ED.SOB ---
HPI - SOB/Dyspnea General: Chief Complaint: Shortness of Breath/Dyspnea Stated Complaint: SOB Time Seen by Provider: 11/24/24 14:48 Source: patient Mode of arrival: ambulatory Limitations: no limitations History of Present Illness: HPI Narrative: 54-year-old male states history of COPD chronic kidney disease CHF is on dialysis states he gets dialysis Saturday did not miss yesterday. States that over the last 3 days he has had increasing cough wheezing with some production of his cough. He denies any chest pain denies any fevers. Associated symptoms: Deny abdominal pain, chest pain, fever(s), nausea or vomiting Related Data Home Medications ?Medication ?Instructions ?Recorded ?Confirmed albuterol sulfate 90 mcg/actuation 2 puff inhalation Q4H PRN 08/05/24 11/24/24 aerosol inhaler Shortness Of Breath insulin glargine 100 unit/mL (3 10 unit SUBCUT BEDTIME 08/05/24 11/24/24 mL) subcutaneous pen (Lantus Solostar U-100 Insulin) insulin lispro 100 unit/mL See Rx Instructions .Route .COMPLEX 08/05/24 11/24/24 subcutaneous pen oxycodone 10 mg tablet 10 mg PO Q4H PRN Pain 08/05/24 11/24/24 cyclobenzaprine 10 mg tablet 10 mg PO BID PRN Spasms 09/16/24 11/24/24 ferrous sulfate 325 mg (65 mg 325 mg PO .QOD 09/16/24 11/24/24 iron) tablet (FeroSul) lidocaine 4 % topical patch 1 patch topical Q12H PRN Pain 09/16/24 11/24/24 (Lidocaine Pain Relief) metolazone 2.5 mg tablet 2.5 mg PO DAILY 09/16/24 11/24/24 itraconazole 10 mg/mL oral solution 100 mg PO DAILY 10/20/24 11/24/24 bumetanide 2 mg tablet 2 mg PO BID 11/24/24 11/24/24 carvedilol 25 mg tablet 25 mg PO BID 11/24/24 11/24/24 hydroxyzine HCl 25 mg tablet 25 mg PO BEDTIME PRN Insomnia 11/24/24 11/24/24 loperamide 2 mg capsule See Rx Instructions .Route 11/24/24 11/24/24 .COMPLEX PRN Diarrhea potassium chloride 10 mEq 10 meq PO DAILY 11/24/24 11/24/24 tablet,extended release torsemide 100 mg tablet 100 mg PO DAILY 11/24/24 11/24/24 vitamin B complex with vit C-folic 1 tab PO DAILY 11/24/24 11/24/24 acid 800 mcg-zinc 12.5 mg tablet (RenaPlex) Previous Rx's ?Medication ?Instructions ?Recorded cholecalciferol (vitamin D3) 1,250 50,000 mcg (40 x 1,250 mcg (50,000 08/27/24 mcg (50,000 unit) capsule unit)) PO Q7D #4 caps escitalopram oxalate 5 mg tablet 5 mg PO DAILY #30 tabs 09/07/24 pantoprazole 40 mg tablet,delayed 40 mg PO BID #180 tabs 09/08/24 release (Protonix) voriconazole 200 mg tablet 200 mg PO Q12H 30 days #60 tabs 09/15/24 doxazosin 8 mg tablet 8 mg PO DAILY #30 tabs 10/01/24 hydralazine 25 mg tablet 25 mg PO TID #90 tabs 10/20/24 dapagliflozin propanediol 10 mg 10 mg PO QAM #30 tabs 10/27/24 tablet (Farxiga) furosemide 40 mg tablet (Lasix) 40 mg PO BID #10 tabs 11/05/24 gabapentin 100 mg capsule 100 mg PO TID #90 caps 11/10/24 Allergies Allergy/AdvReac Type Severity Reaction Status Date / Time ketorolac Allergy ADR-Vomitin Verified 11/19/24 14:22 g Review of Systems Const: Denies: fever(s), chills, body aches or change in appetite ENMT: Denies: throat pain or dental pain Card: Denies: chest pain Resp: Reports: dyspnea, productive cough and wheezing GI: Denies: abdominal pain, nausea, vomiting or diarrhea : Denies: dysuria Musc: Denies: neck pain or back pain Skin/Breast: Denies: rash Neuro: Denies: headache(s) PFSH ED PFSH: Medical History Hypertension Diabetes CKD (chronic kidney disease) Liver cirrhosis MRSA pneumonia Blastomycosis of central nervous system Anemia Surgical History S/P percutaneous endoscopic gastrostomy (PEG) tube placement Tracheostomy status Past medical history positive for prolonged hospitalization secondary to angioedema requiring intubation, followed by tracheostomy after prolonged intubation, PEG tube placement after prolonged n.p.o. 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 07/17 MRI lumbar spine chronic degenerative changes, he was given prolonged antibiotics for possible osteomyelitis 08/01: Follow-up MRI no evidence of osteomyelitis Antimicrobial therapy IV vancomycin: Did not tolerate He was given linezolid, ceftaroline meropenem, micafungin, daptomycin Prolonged IV meropenem 07/23 till 08/01 Itraconazole prolonged therapy 07/22-08/01 [facility] air EGD: 07/28: Gastritis: Colonoscopy 07/30: Nonbleeding internal hemorrhoids: 3 to 5 mm small polyps removed large 20 mm polyp removed as well: Patient was asked to follow-up for colonoscopy within 3 years Diarrhea: C. difficile panel negative: Patient was given Imodium on as-needed basis Family History Father Heart disease Social History Smoking and tobacco/nicotine status: former use of tobacco/nicotine Alcohol intake: former Household members: family Housing: House Physical Exam Const: COMMON NORMALS: patient oriented x3 HENMT: COMMON NORMALS: normocephalic and atraumatic HEAD & SCALP: normocephalic and atraumatic Eye: COMMON NORMALS: conjunctivae normal CONJUNCTIVA: Yes conjunctivae normal Neck/C-Spine: COMMON NORMALS: full ROM and supple Chest: COMMONS NORMALS: normal inspection of the chest Resp: COMMON NORMALS: No retractions and No use of accessory muscles AUSCULTATION: wheezes Cardio: COMMON NORMALS: regular rate, regular rhythm and No murmurs present (Cardio) RATE: regular rate RHYTHM: regular rhythm Extremity: COMMON NORMALS: normal to inspection and full ROM Neuro: COMMON NORMALS: patient oriented x3, moves all extremities and no focal motor deficits Psych: COMMON NORMALS: mental status grossly normal, Normal thought process present and cooperative THOUGHT PROCESS: Normal thought process present Skin: COMMON NORMALS: no rashes or lesions noted and no wounds GENERAL SKIN EXAM: no rashes or lesions noted Course Vital Signs: Vital signs: Vital Signs Temperature 98.1 F 11/24/24 14:53 Pulse Rate 69 11/24/24 16:25 Respiratory Rate 18 11/24/24 15:33 Blood Pressure 176/76 11/24/24 17:19 Pulse Oximetry 92 11/24/24 17:13 Oxygen Delivery Me thod Room Air 11/24/24 16:25 Oxygen Flow Rate 2 11/24/24 17:13 MDM - SOB/Dyspnea Medical Decision Making Patient presents for shortness of breath does have a history of end-stage renal disease does have elevated BNP had cough congestion did give him a dose of antibiotics he has been requiring 2 to 3 L of oxygen here. I spoke to the hospitalist and will admit for his hypoxia. Medical Records I reviewed the patient's medical records. Lab Data I reviewed the patient's lab results. 11/24/24 15:05 11/24/24 15:05 Labs/Radiology: Radiology Impressions Chest X-Ray 11/24/24 15:02 IMPRESSION: As above. Laboratory Results WBC 4.30 10^3/uL (3.29-11.43) 11/24/24 15:05 RBC 3.44 10^6/uL (3.85-5.65) L 11/24/24 15:05 Hgb 9.60 g/dL (11.27-16.99) L 11/24/24 15:05 Hct 32.3 % (37-53) L 11/24/24 15:05 MCV 93.9 fl (82-101) 11/24/24 15:05 MCH 27.9 pg (27-33) 11/24/24 15:05 MCHC 29.7 g/dL (30-55) L 11/24/24 15:05 RDW 18.5 % (12.1-15.1) H 11/24/24 15:05 Plt Count 125 10^3/cmm (157-399) L 11/24/24 15:05 MPV 11.4 fL (7.4-10.4) H 11/24/24 15:05 Neut % (Auto) 54.4 % 11/24/24 15:05 Lymph % (Auto) 27.4 % 11/24/24 15:05 Carter % (Auto) 14.0 % 11/24/24 15:05 Eos % (Auto) 3.0 % 11/24/24 15:05 Baso % (Auto) 0.7 % 11/24/24 15:05 Neut # (Auto) 2.34 10^3/uL (1.8-7.7) 11/24/24 15:05 Lymph # (Auto) 1.2 10^3/uL (0.8-4.8) 11/24/24 15:05 Carter # (Auto) 0.6 10^3/uL (0.2-0.9) 11/24/24 15:05 Eos # (Auto) 0.1 10^3/uL (0.0-0.8) 11/24/24 15:05 Baso # (Auto) 0.0 10^3/uL (0.0-0.1) 11/24/24 15:05 Nucleated RBC % (auto) 0 % 11/24/24 15:05 Nucleated RBCs # 0.0 /100WBC 11/24/24 15:05 Sodium 135 mmol/L (136-145) L 11/24/24 15:05 Potassium 3.9 mmol/L (3.5-5.1) 11/24/24 15:05 Chloride 94 mmol/L (98-107) L 11/24/24 15:05 Carbon Dioxide 28 mmol/L (22-29) 11/24/24 15:05 Anion Gap 16.9 (5-19) 11/24/24 15:05 BUN 37 mg/dL (6-20) H 11/24/24 15:05 Creatinine 3.6 mg/dL (0.7-1.2) H 11/24/24 15:05 GFR Calculation 17.7 mL/min (90-130) L 11/24/24 15:05 Glucose 229 mg/dL (65-115) H 11/24/24 15:05 Calculated Osmolality 296 mOsm/kg (285-295) H 11/24/24 15:05 Calcium 8.7 mg/dL (8.5-10.5) 11/24/24 15:05 Total Bilirubin 1.0 mg/dL (0.15-1.2) 11/24/24 15:05 AST 45 U/L (0-40) H 11/24/24 15:05 ALT 23 U/L (0-41) 11/24/24 15:05 Alkaline Phosphatase 219 U/L (40-130) H 11/24/24 15:05 NT-Pro-B Natriuret Pep 40955 pg/mL (0-125) H 11/24/24 15:05 Total Protein 8.0 g/dL (6.6-8.7) 11/24/24 15:05 Albumin 3.2 g/dL (3.5-5.2) L 11/24/24 15:05 Globulin 4.8 g/dL (1.3-4.6) H 11/24/24 15:05 Influenza A (PCR) Negative (Negative) 11/24/24 15:30 Influenza Type B (PCR) Negative (Negative) 11/24/24 15:30 RSV (PCR) Negative (Negative) 11/24/24 15:30 SARS-CoV-2 (PCR) Negative (Negative) 11/24/24 15:30 All radiology interpretation(s) finalized by discharge EKG Data EKG 1: I personally reviewed and interpreted this EKG as follows: EKG Interpretation Date: 11/24/24 EKG interpretation time: 14:52 Interpretation: nsr hr [address] elevationqrs 104 qtc 435 Discharge Plan Discharge Patient Disposition: Admitted As Inpatient Clinical Impression: Hypoxemia, ESRD (end stage renal disease) Condition: Stable Coding Level of Care Code ED Automatic Nailing Machine Operator for Josesito Puente
[2024-11-24] MEDS: methylPREDNISolone sod succ 125 mg/2 mL INJ IV (15:11)
[2024-11-24 15:15] LABS: Hematocrit 32.3 % (37-53); Hemoglobin 9.60 g/dL (11.27-16.99); Mean Corpuscular HGB Conc 29.7 g/dL (30-55); Mean Corpuscular Hemoglobin 27.9 pg (27-33); Mean Corpuscular Volume 93.9 fl (82-101); Nucleated Red Blood Cells % 0 %; Platelet Count 125 10^3/cmm (157-399); Red Blood Count 3.44 10^6/uL (3.85-5.65); White Blood Count 4.30 10^3/uL (3.29-11.43)
[2024-11-24] MEDS: ondansetron 2 mg/ML SDV 2 mL 4 MG IVP (15:28)
[2024-11-24 15:40] LABS: Alanine Aminotransferase 23 U/L (0-41); Albumin Level 3.2 g/dL (3.5-5.2); Alkaline Phosphatase 219 U/L (40-130); Anion Gap 16.9 (5-19); Aspartate Amino Transferase 45 U/L (0-40); Blood Urea Nitrogen 37 mg/dL (6-20); Calcium 8.7 mg/dL (8.5-10.5); Carbon Dioxide 28 mmol/L (22-29); Chloride 94 mmol/L (98-107); Creatinine Clr Calc Pharmacy 26.4886; Globulin 4.8 g/dL (1.3-4.6); Glucose 229 mg/dL (65-115); NT Pro B Type Natriuretic Pept 28931 pg/mL (0-125); Osmolality Calculated 296 mOsm/kg (285-295); Potassium 3.9 mmol/L (3.5-5.1); Sodium 135 mmol/L (136-145); Total Protein 8.0 g/dL (6.6-8.7)
[2024-11-24 16:40] LABS: Respiratory Syncytial Virus Ce NEGATIVE (Negative); SARS-CoV-2 PCR NEGATIVE (Negative)
[2024-11-24] MEDS: AZITHROMYCIN ADD-Vantage 500 MG in 0.9% NaCl ADD-Vantage 250 ML 250 MG IV (17:43)
[2024-11-24] MEDS: cefTRIAXone 1,000 mg SDV 1000 MG IVP (17:43)
--- NOTE | 2024-11-24 18:01 | CTR_ITS ---
PROCEDURE INFORMATION: Exam: CTA Chest With Contrast Exam date and time: 11/24/2024 6:41 PM Age: 54 years old Clinical indication: Shortness of breath; Additional info: Shortness of breath' TECHNIQUE: Imaging protocol: Computed tomographic angiography of the chest with contrast. Exam focused on the arteries. 3D rendering (Not supervised by radiologist): MIP and/or 3D reconstructed images were created by the technologist. Radiation optimization: All CT scans at this facility use at least one of these dose optimization techniques: automated exposure control; mA and/or kV adjustment per patient size (includes targeted exams where dose is matched to clinical indication); or iterative reconstruction. Contrast material: OMNIPAQUE 350; Contrast volume: 100 ml; Contrast route: INTRAVENOUS (IV); COMPARISON: [place] [id number] 08/05/2024 2:25 AM RADIATION DOSE METRICS: Total DLP (mGy-cm): 462.5 FINDINGS: Tubes, catheters and devices: Right-sided central venous catheter with tip terminating in cavoatrial junction. Pulmonary arteries: Normal. No pulmonary emboli. Aorta: Scattered atherosclerosis of thoracic aorta. Lungs: Ground-glass and nodular opacities scattered bilaterally, with lower lobe predominance. Pleural spaces: Trace bilateral pleural effusions. Heart: Unremarkable. No cardiomegaly. No pericardial effusion. Coronary arteries: Coronary artery calcifications. Lymph nodes: Extensive mediastinal lymphadenopathy with scattered calcified lymph nodes. Liver: Partially visualized trace perihepatic and perisplenic ascites. Gallbladder and biliary ducts: Status post cholecystectomy. Bones/joints: Unremarkable. No acute fracture. Soft tissues: Unremarkable. CT/CT angio chest PE protcl [id number] IMPRESSION: 1. Negative for pulmonary emboli. 2. Trace bilateral pleural effusions and scattered ground-glass and nodular opacities with lower lobe predominance concerning for multifocal infectious process. 3. Diffuse mediastinal lymphadenopathy, nonspecific findings and may be reactive. Few scattered calcified lymph nodes are present consistent with sequela of prior healed granulomatous disease. 4. Partially visualized trace perihepatic and perisplenic ascites.
--- NOTE | 2024-11-24 18:07 | PM.HP ---
Providers/Chief Complaint Admitting Physician: Zion Gillis MD Primary Care Provider: PATRICE Nicole Chief Complaint: SOB History of Present Illness Guido Whalen is a 54 year old male end-stage renal disease Saturday, diastolic CHF, history of disseminated blastomycosis, liver cirrhosis, COPD, obstructive sleep apnea, who presents to [facility] for shortness of breath. Patient reports that he is experience increased shortness of breath, increased shortness of breath with exertion, increased edema, no chest pain, no palpitations, has had a cough, productive cough, no fevers, chills does report wheezing, no recent travel, no calf pain, no calf tenderness, does have lower extremity edema, does report anasarca, does report that a few days ago, he fell and hit his head, no headache, no blurry vision, no nausea, no vomiting Review of Systems Card: Denies: chest pain Resp: Denies: dyspnea GI: Denies: abdominal pain Medications/Allergies Home Medications ?Medication ?Instructions ?Recorded ?Confirmed ?Last Taken ?Type albuterol sulfate 90 mcg/actuation 2 puff inhalation Q4H PRN 08/05/24 11/24/24 Unknown History aerosol inhaler Shortness Of Breath insulin glargine 100 unit/mL (3 10 unit SUBCUT BEDTIME 08/05/24 11/24/24 11/23/24 History mL) subcutaneous pen (Lantus Solostar U-100 Insulin) insulin lispro 100 unit/mL See Rx Instructions .Route .COMPLEX 08/05/24 11/24/24 11/24/24 History subcutaneous pen oxycodone 10 mg tablet 10 mg PO Q4H PRN Pain 08/05/24 11/24/24 Unknown History cholecalciferol (vitamin D3) 1,250 50,000 mcg (40 x 1,250 mcg (50,000 08/27/24 11/24/24 09/09/24 Rx mcg (50,000 unit) capsule unit)) PO Q7D #4 caps escitalopram oxalate 5 mg tablet 5 mg PO DAILY #30 tabs 09/07/24 11/24/24 11/24/24 Rx pantoprazole 40 mg tablet,delayed 40 mg PO BID #180 tabs 09/08/24 11/24/24 11/24/24 Rx release (Protonix) voriconazole 200 mg tablet 200 mg PO Q12H 30 days #60 tabs 09/15/24 11/24/24 11/24/24 Rx cyclobenzaprine 10 mg tablet 10 mg PO BID PRN Spasms 09/16/24 11/24/24 Unknown History ferrous sulfate 325 mg (65 mg 325 mg PO .QOD 09/16/24 11/24/24 11/23/24 History iron) tablet (FeroSul) lidocaine 4 % topical patch 1 patch topical Q12H PRN Pain 09/16/24 11/24/24 Unknown History (Lidocaine Pain Relief) metolazone 2.5 mg tablet 2.5 mg PO DAILY 09/16/24 11/24/24 11/24/24 History doxazosin 8 mg tablet 8 mg PO DAILY #30 tabs 10/01/24 11/24/24 11/24/24 Rx hydralazine 25 mg tablet 25 mg PO TID #90 tabs 10/20/24 11/24/24 11/24/24 Rx itraconazole 10 mg/mL oral solution 100 mg PO DAILY 10/20/24 11/24/24 11/23/24 History dapagliflozin propanediol 10 mg 10 mg PO QAM #30 tabs 10/27/24 11/24/24 11/24/24 Rx tablet (Farxiga) furosemide 40 mg tablet (Lasix) 40 mg PO BID #10 tabs 11/05/24 11/24/24 11/24/24 Rx gabapentin 100 mg capsule 100 mg PO TID #90 caps 11/10/24 11/24/24 11/24/24 Rx bumetanide 2 mg tablet 2 mg PO BID 11/24/24 11/24/24 11/24/24 History carvedilol 25 mg tablet 25 mg PO BID 11/24/24 11/24/24 11/24/24 History hydroxyzine HCl 25 mg tablet 25 mg PO BEDTIME PRN Insomnia 11/24/24 11/24/24 11/23/24 History loperamide 2 mg capsule See Rx Instructions .Route 11/24/24 11/24/24 Unknown History .COMPLEX PRN Diarrhea potassium chloride 10 mEq 10 meq PO DAILY 11/24/24 11/24/24 11/24/24 History tablet,extended release torsemide 100 mg tablet 100 mg PO DAILY 11/24/24 11/24/24 11/24/24 History vitamin B complex with vit C-folic 1 tab PO DAILY 11/24/24 11/24/24 11/24/24 History acid 800 mcg-zinc 12.5 mg tablet (RenaPlex) Allergies Allergy/AdvReac Type Severity Reaction Status Date / Time ketorolac Allergy ADR-Vomitin Verified 11/19/24 14:22 g PFSH Acute PFSH: Medical History Hypertension Diabetes CKD (chronic kidney disease) Liver cirrhosis MRSA pneumonia Blastomycosis of central nervous system Anemia Surgical History S/P percutaneous endoscopic gastrostomy (PEG) tube placement Tracheostomy status Past medical history positive for prolonged hospitalization secondary to angioedema requiring intubation, followed by tracheostomy after prolonged intubation, PEG tube placement after prolonged n.p.o. 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 07/17 MRI lumbar spine chronic degenerative changes, he was given prolonged antibiotics for possible osteomyelitis 08/01: Follow-up MRI no evidence of osteomyelitis Antimicrobial therapy IV vancomycin: Did not tolerate He was given linezolid, ceftaroline meropenem, micafungin, daptomycin Prolonged IV meropenem 07/23 till 08/01 Itraconazole prolonged therapy 07/22-08/01 PICC line removed And sent to spirometer [facility] provided Patient was discharged on room air EGD: 07/28: Gastritis: Colonoscopy 07/30: Nonbleeding internal hemorrhoids: 3 to 5 mm small polyps removed large 20 mm polyp removed as well: Patient was asked to follow-up for colonoscopy within 3 years Diarrhea: C. difficile panel negative: Patient was given Imodium on as-needed basis Family History Father Heart disease Social History Smoking and tobacco/nicotine status: former use of tobacco/nicotine Alcohol intake: former Household members: family Housing: House Vitals/I&O/Wt Last Vital Signs Temp 98.1 F 11/24/24 14:53 Pulse 84 11/24/24 18:06 Resp 18 11/24/24 15:33 BP 160/96 11/24/24 18:06 Pulse Ox 95 11/24/24 18:06 O2 Del Method Nasal Cannula 11/24/24 18:01 O2 Flow Rate 2 11/24/24 18:01 Weight last 48 hrs Weight 99.337 kg Physical Exam Const: COMMON NORMALS: no acute distress and patient oriented x3 HENMT: COMMON NORMALS: normocephalic HEAD & SCALP: normocephalic Neck/C-Spine: COMMON NORMALS: no JVD Resp: COMMON NORMALS: normal respiratory effort, No retractions and No use of accessory muscles AUSCULTATION: crackles and wheezes Cardio: COMMON NORMALS: regular rate, regular rhythm, S1 normal heart sound present and S2 normal heart sound present RATE: regular rate RHYTHM: regular rhythm HEART SOUNDS: S1 normal heart sound present and S2 normal heart sound present GI: COMMON NORMALS: Normal to inspection, nondistended, normoactive bowel sounds present, Soft to palpation and non-tender OTHER: Anasarca Extremity: NARRATIVE EXTREMITY EXAM: 1+ pitting edema Neuro: COMMON NORMALS: patient oriented x3, CN's II-XII intact bilaterally and moves all extremities Psych: COMMON NORMALS: mental status grossly normal Data 11/24/24 15:05 11/24/24 15:05 Micro: Microbiology 11/24/24 17:33 Blood Culture - Preliminary Blood SPECIMEN COLLECTED 11/24/24 17:35 Blood Culture - Preliminary Blood SPECIMEN COLLECTED A&P Assessment and plan (1) Acute hypoxic respiratory failure: (2) CHF exacerbation: (3) COPD exacerbation: (4) Pneumonia: (5) Diabetes: (6) Liver cirrhosis: (7) CKD (chronic kidney disease): (8) ESRD (end stage renal disease): Plan Acute hypoxic respiratory failure - Multifactorial - COPD exacerbation - Pneumonia, concerns with productive cough - Diastolic CHF exacerbation Plan - Solu-Medrol 125 followed by 40 mg IV every 8 hours - DuoNeb - Budesonide - Bumex 1 mg IV push every 12 hours - [facility] consulted for dialysis tomorrow - Continue Rocephin, Zithromycin - Cultures, blood cultures - Monitor respiratory status closely - Full code - Heparin for DVT prophylaxis End-stage renal disease on dialysis Fall, reported head trauma head CT Type 2 diabetes mellitus, low-dose sliding scale, Lantus 10 units at bedtime PDMP PDMP Reviewed: Last Reviewed 11/24/24 17:58 by Zion Gillis MD Attestations Medical Necessity Statement*: Patient requires hospitalization, inpatient, greater than 2 midnights, for acute hypoxic respiratory failure Diagnoses Acute hypoxic respiratory failure J96.01 CHF exacerbation I50.9 COPD exacerbation J44.1 Pneumonia J18.9 Type 2 diabetes mellitus with other circulatory complication, with long-term current use of insulin E11.59; Z79.4 Diabetes mellitus type: type 2 Diabetes mellitus mcfp insulin use: with terminal system operator use Diabetes mellitus complication status: with circulatory complication Diabetes mellitus complication detail: with other circulatory complications Liver cirrhosis K74.60 Stage 4 chronic kidney disease N18.4 Chronic kidney disease stage: stage 4 (GFR 15-29) ESRD (end stage renal disease) N18.6
--- NOTE | 2024-11-24 18:13 | CTR_ITS ---
PROCEDURE INFORMATION: Exam: CT Head Without Contrast Exam date and time: 11/24/2024 6:38 PM Age: 54 years old Clinical indication: Injury or trauma; Fall; Blunt trauma (contusions or hematomas); Consciousness not specified TECHNIQUE: Imaging protocol: Computed tomography of the head without contrast. Radiation optimization: All CT scans at this facility use at least one of these dose optimization techniques: automated exposure control; mA and/or kV adjustment per patient size (includes targeted exams where dose is matched to clinical indication); or iterative reconstruction. COMPARISON: CT head wo con* [id number] 08/20/2024 7:44 PM RADIATION DOSE METRICS: Total DLP (mGy-cm): 1299.88 FINDINGS: Brain: No hemorrhage. Periventricular and subcortical white matter hypodensities likely represent chronic small vessel ischemic changes. No mass effect. Cerebral ventricles: No ventriculomegaly. Paranasal sinuses: Visualized sinuses are unremarkable. No fluid levels. Mastoid air cells: Visualized mastoid air cells are well aerated. Bones: Unremarkable. No acute fracture. Soft tissues: Unremarkable. Vasculature: Vascular calcifications along the carotid siphons. CT/CT head wo con* [id number] IMPRESSION: No acute intracranial abnormality.
--- NOTE | 2024-11-24 18:18 | ECG_ITS ---
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 Measurements Intervals [place] Rate: 73 P: 37 MO: 135 QRS: 7 QRSD: 112 T: -1 QT: 445 QTc: 491 Interpretive Statements SINUS RHYTHM MODERATE INTRAVENTRICULAR CONDUCTION DELAY [110+ ms QRS DURATION] PROLONGED QT INTERVAL Compared to ECG 11/24/2024 14:52:36 Intraventricular conduction delay now present Prolonged QT interval now present T-wave abnormality no longer present Electronically Signed On 11-26-2024 08:59:24 CDT by Raul Sánchez M.D. [email or web address]
[2024-11-24] MEDS: iohexol 350 mg/mL 500 mL Btl (per mL) IV (18:49)
[2024-11-24] MEDS: heparin 5,000 unit/mL INJ 1 mL 5000 UNIT SUBCUT (18:56)
[2024-11-24] MEDS: bumetanide 0.25 mg/mL SDV 4 mL 1 MG IVP (18:56)
[2024-11-24 19:42] LABS: Lactic Sepsis W/Reflex 1.3 mmol/L (0.5-2.2)
[2024-11-24 19:47] LABS: Troponin(5th) Baseline 889 ng/L (0-15)
[2024-11-24 19:53] LABS: Procalcitonin 0.25 ng/mL (0-0.5); Thyroid Stimulating Hormone 1.02 uIU/mL (0.27-4.20)
--- NOTE | 2024-11-24 20:01 | ECG_ITS ---
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 Measurements Intervals [place] Rate: 73 P: 50 FL: 150 QRS: 25 QRSD: 110 T: 9 QT: 423 QTc: 466 Interpretive Statements SINUS RHYTHM Compared to ECG 11/24/2024 18:18:54 Intraventricular conduction delay no longer present Prolonged QT interval no longer present Electronically Signed On 11-26-2024 09:31:27 CDT by Raul Sánchez M.D. [email or web address]
[2024-11-24] MEDS: morphine 4 mg/mL SDV 1 mL 1 MG IVP (21:25)
[2024-11-24 22:17] LABS: Troponin 5 2HR Delta -17.2 ABS# (0-10)
[2024-11-24 22:19] LABS: Troponin 5 2HR 871.8 ng/L (0-15)
--- NOTE | 2024-11-24 23:04 | PM.CONSULT ---
Providers/Reason For Consult Consulting Physician/Specialty*: fabian garduno md / telenephrology Reason for Consult*: ESRD care Requesting Physician: Dr Mindy Gillis Attending Physician: Zion Gillis MD Primary Care Provider: PATRICE Nicole History of Present Illness History of Present Illness Guido Whalen is a 54 year old male renal was consulted for ESRD care. The patient has history of ESRD on dialysis Saturday, heart failure preserved EF, disseminated blastomycosis, cirrhosis COPD, obstructive sleep apnea. Patient presented with shortness of breath after falling. Patient denies any syncope. Renal was called to provide ESRD care. Review of Systems Narrative: Patient states he fell he short of breath denies headaches denies syncope, denies nausea vomiting. Patient states that he is swollen at times. He denies chest pain. He states he is using oxygen tonight usually does not Medications/Allergies Home Medications ?Medication ?Instructions ?Recorded ?Confirmed ?Last Taken ?Type albuterol sulfate 90 mcg/actuation 2 puff inhalation Q4H PRN 08/05/24 11/24/24 Unknown History aerosol inhaler Shortness Of Breath insulin glargine 100 unit/mL (3 10 unit SUBCUT BEDTIME 08/05/24 11/24/24 11/23/24 History mL) subcutaneous pen (Lantus Solostar U-100 Insulin) insulin lispro 100 unit/mL See Rx Instructions .Route .COMPLEX 08/05/24 11/24/24 11/24/24 History subcutaneous pen oxycodone 10 mg tablet 10 mg PO Q4H PRN Pain 08/05/24 11/24/24 Unknown History cholecalciferol (vitamin D3) 1,250 50,000 mcg (40 x 1,250 mcg (50,000 08/27/24 11/24/24 09/09/24 Rx mcg (50,000 unit) capsule unit)) PO Q7D #4 caps escitalopram oxalate 5 mg tablet 5 mg PO DAILY #30 tabs 09/07/24 11/24/24 11/24/24 Rx pantoprazole 40 mg tablet,delayed 40 mg PO BID #180 tabs 09/08/24 11/24/24 11/24/24 Rx release (Protonix) voriconazole 200 mg tablet 200 mg PO Q12H 30 days #60 tabs 09/15/24 11/24/24 11/24/24 Rx cyclobenzaprine 10 mg tablet 10 mg PO BID PRN Spasms 09/16/24 11/24/24 Unknown History ferrous sulfate 325 mg (65 mg 325 mg PO .QOD 09/16/24 11/24/24 11/23/24 History iron) tablet (FeroSul) lidocaine 4 % topical patch 1 patch topical Q12H PRN Pain 09/16/24 11/24/24 Unknown History (Lidocaine Pain Relief) metolazone 2.5 mg tablet 2.5 mg PO DAILY 09/16/24 11/24/24 11/24/24 History doxazosin 8 mg tablet 8 mg PO DAILY #30 tabs 10/01/24 11/24/24 11/24/24 Rx hydralazine 25 mg tablet 25 mg PO TID #90 tabs 10/20/24 11/24/24 11/24/24 Rx itraconazole 10 mg/mL oral solution 100 mg PO DAILY 10/20/24 11/24/24 11/23/24 History dapagliflozin propanediol 10 mg 10 mg PO QAM #30 tabs 10/27/24 11/24/24 11/24/24 Rx tablet (Farxiga) furosemide 40 mg tablet (Lasix) 40 mg PO BID #10 tabs 11/05/24 11/24/24 11/24/24 Rx gabapentin 100 mg capsule 100 mg PO TID #90 caps 11/10/24 11/24/24 11/24/24 Rx bumetanide 2 mg tablet 2 mg PO BID 11/24/24 11/24/24 11/24/24 History carvedilol 25 mg tablet 25 mg PO BID 11/24/24 11/24/24 11/24/24 History hydroxyzine HCl 25 mg tablet 25 mg PO BEDTIME PRN Insomnia 11/24/24 11/24/24 11/23/24 History loperamide 2 mg capsule See Rx Instructions .Route 11/24/24 11/24/24 Unknown History .COMPLEX PRN Diarrhea potassium chloride 10 mEq 10 meq PO DAILY 11/24/24 11/24/24 11/24/24 History tablet,extended release torsemide 100 mg tablet 100 mg PO DAILY 11/24/24 11/24/24 11/24/24 History vitamin B complex with vit C-folic 1 tab PO DAILY 11/24/24 11/24/24 11/24/24 History acid 800 mcg-zinc 12.5 mg tablet (RenaPlex) Allergies Allergy/AdvReac Type Severity Reaction Status Date / Time ketorolac Allergy ADR-Vomitin Verified 11/19/24 14:22 g Current Medications Generic Name Dose Route Start Last Admin Trade Name Freq PRN Reason Stop Dose Admin Albuterol/Ipratropium 3 ml 11/24/24 20:00 11/24/24 20:28 Ipratropium-Albuterol 3 Ml Neb INHALATION 3 ml QID.RESPIRATORY LEATHA Administration Budesonide 0.5 mg 11/24/24 20:00 11/24/24 20:28 Budesonide 0.5 Mg/2 Ml Neb INHALATION 0.5 mg BID.RESPIRATORY LEATHA Administration Bumetanide 1 mg 11/24/24 18:13 11/24/24 18:56 Bumetanide 0.25 Mg/Ml Sdv 4 Ml IVP 1 mg Q12H LEATHA Administration Carvedilol 25 mg 11/24/24 18:13 11/24/24 18:55 Carvedilol 25 Mg Tablet PO 25 mg BID LEATHA Administration Gabapentin 100 mg 11/24/24 21:00 11/24/24 20:54 Gabapentin 100 Mg Capsule PO 100 mg TID LEATHA Administration Heparin Sodium (Porcine) 5,000 unit 11/24/24 18:15 11/24/24 18:56 Heparin 5,000 Unit/Ml Inj 1 Ml SUBCUT 5,000 unit Q12H LEATHA Administration Hydralazine HCl 25 mg 11/24/24 21:00 11/24/24 20:54 Hydralazine 25 Mg Tablet PO 25 mg TID LEATHA Administration Insulin Glargine 10 unit 11/24/24 21:00 11/24/24 20:57 Insulin Glargine 100 Units/1 Ml SUBCUT Not Given BEDTIME LEATHA Insulin Human Lispro 0 unit 11/24/24 18:13 11/24/24 18:56 Insulin Lispro 100 Unit/1 Ml SUBCUT 6 unit TIDWM LEATHA Administration Protocol Morphine Sulfate 1 mg 11/24/24 18:13 11/24/24 21:25 Morphine 4 Mg/Ml Sdv 1 Ml IVP 1 mg Q4H PRN Administration SEVERE PAIN Pantoprazole Sodium 40 mg 11/24/24 18:13 11/24/24 18:[address] 40 Mg Tablet PO 40 mg BID LEATHA Administration PFSH Acute PFSH: Medical History Hypertension Diabetes CKD (chronic kidney disease) Liver cirrhosis MRSA pneumonia Blastomycosis of central nervous system Anemia Surgical History S/P percutaneous endoscopic gastrostomy (PEG) tube placement Tracheostomy status Past medical history positive for prolonged hospitalization secondary to angioedema requiring intubation, followed by tracheostomy after prolonged intubation, PEG tube placement after prolonged n.p.o. 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 07/17 MRI lumbar spine chronic degenerative changes, he was given prolonged antibiotics for possible osteomyelitis 08/01: Follow-up MRI no evidence of osteomyelitis Antimicrobial therapy IV vancomycin: Did not tolerate He was given linezolid, ceftaroline meropenem, micafungin, daptomycin Prolonged IV meropenem 07/23 till 08/01 Itraconazole prolonged therapy 07/22-08/01 PICC line removed And sent to spirometer [facility] provided Patient was discharged on room air EGD: 07/28: Gastritis: Colonoscopy 07/30: Nonbleeding internal hemorrhoids: 3 to 5 mm small polyps removed large 20 mm polyp removed as well: Patient was asked to follow-up for colonoscopy within 3 years Diarrhea: C. difficile panel negative: Patient was given Imodium on as-needed basis Family History Father Heart disease Social History Smoking and tobacco/nicotine status: former use of tobacco/nicotine Alcohol intake: former Household members: family Housing: House Vitals/I&O/Wt Last Vital Signs Temp 97.7 F 11/24/24 20:09 Pulse 76 11/24/24 20:33 Resp 16 11/24/24 20:33 BP 168/77 11/24/24 20:09 Pulse Ox 96 11/24/24 20:33 O2 Del Method Nasal Cannula 11/24/24 21:23 O2 Flow Rate 2 11/24/24 20:33 11/24/24 11/24/24 11/25/24 14:59 22:59 06:59 Intake Total 250 / 250 Output Total 475 / 475 Balance -225 / -225 Weight last 48 hrs Weight 99.79 kg Weight 99.337 kg Physical Exam Narrative: Blood pressure elevated. Patient is comfortable on 2 L nasal cannula. HEENT is normocephalic atraumatic. Neck is supple. Lungs have wheezes bilaterally. Patient has an anterior chest wall permacath. Heart regular positive S1-S2. Abdomen is soft nontender positive bowel sounds. Extremities trace edema. Neuro awake alert oriented x 3 Data 11/24/24 15:05 11/24/24 15:05 Micro: Microbiology 11/24/24 17:33 Blood Culture - Preliminary Blood SPECIMEN COLLECTED 11/24/24 17:35 Blood Culture - Preliminary Blood SPECIMEN COLLECTED A&P Assessment and plan (1) ESRD (end stage renal disease): 54-year-old gentleman history of heart failure preserved EF, disseminated blastomycosis, cirrhosis, diabetes, COPD obstructive sleep apnea, had severe ascites and started dialysis in July 2024 then was taken off of dialysis and was restarted. The patient is here now after fall and shortness of breath. Will dialyze the patient in the morning. 1. Anemia hemoglobin has improved from August. Can monitor iron studies. Will repeat SPEP and serum immunofixation. 2. Potassium is okay bicarbonate is okay Creatinine up to 3.6 mg/dL. 3. Diabetes hemoglobin A1c improved in September to 6.7. 4. Troponin of 889 elevated BNP 2931. Will monitor with diuresis will give a loop diuretic tonight. Patient seen and examined using A/V equipment with the aid of a nurse. Patient consented to telehealth and hemodialysis. Plan Shortness of breath. Evaluation as per medicine cardiology and we will continue hemodialysis for now. PDMP PDMP Reviewed: Not Reviewed Consult Attestations Medical Necessity Statement: Status post fall shortness of breath positive BNP elevated troponin as per medicine. Time Spent in Patient Care: Greater than 35 minutes (>than 50% of time spent in counselling and/or direct pt care on unit). Coding Level of Care Code Acute Code for Chg Fwd Diagnoses ESRD (end stage renal disease) N18.6
[2024-11-25] VITALS (19 sets, daily range): BP systolic 159–199; BP diastolic 72–91; PULSE 64–80; RESP 15–27; TEMP 36.3–36.9; O2SAT 92–99
[2024-11-25 01:03] LABS: Ferritin 560 ng/mL (30-400); Iron 33 ug/dL (59-158); Total Iron Binding Capacity 149 mcg/dl; Troponin 5 6HR Delta -88.3 ng/L (0-12); Unsaturated Iron Binding 116 ug/dL (112-347)
[2024-11-25 01:04] LABS: Troponin 5 6HR 800.7 ng/L (0-15)
[2024-11-25 01:14] LABS: Calcium 8.2 mg/dL (8.5-10.5)
[2024-11-25 02:33] LABS: Hepatitis B Surface Antigen Non-Reactive (Nonreactive)
[2024-11-25 05:21] LABS: Hematocrit 33.8 % (37-53); Hemoglobin 10.00 g/dL (11.27-16.99); Mean Corpuscular HGB Conc 29.6 g/dL (30-55); Mean Corpuscular Hemoglobin 28.0 pg (27-33); Mean Corpuscular Volume 94.7 fl (82-101); Nucleated Red Blood Cells % 0 %; Platelet Count 131 10^3/cmm (157-399); Red Blood Count 3.57 10^6/uL (3.85-5.65); White Blood Count 3.63 10^3/uL (3.29-11.43)
[2024-11-25 05:45] LABS: Alanine Aminotransferase 29 U/L (0-41); Albumin Level 3.1 g/dL (3.5-5.2); Alkaline Phosphatase 224 U/L (40-130); Anion Gap 17.9 (5-19); Aspartate Amino Transferase 50 U/L (0-40); Blood Urea Nitrogen 43 mg/dL (6-20); Calcium 8.4 mg/dL (8.5-10.5); Carbon Dioxide 27 mmol/L (22-29); Chloride 97 mmol/L (98-107); Creatinine Clr Calc Pharmacy 24.8232; Globulin 4.3 g/dL (1.3-4.6); Glucose 297 mg/dL (65-115); Osmolality Calculated 306 mOsm/kg (285-295); Potassium 4.9 mmol/L (3.5-5.1); Sodium 137 mmol/L (136-145); Total Protein 7.4 g/dL (6.6-8.7)
[2024-11-25 05:51] LABS: NT Pro B Type Natriuretic Pept 31317 pg/mL (0-125); Procalcitonin 0.21 ng/mL (0-0.5)
[2024-11-25 05:56] LABS: NT Pro B Type Natriuretic Pept 30969 pg/mL (0-125)
[2024-11-25 06:03] LABS: Magnesium 2.2 mg/dL (1.7-2.3)
[2024-11-25] MEDS: methylPREDNISolone sod succ 40 mg/mL INJ IVP ×3 (06:08→23:05)
[2024-11-25] MEDS: heparin 5,000 unit/mL INJ 1 mL 5000 UNIT SUBCUT (06:09)
[2024-11-25] MEDS: bumetanide 0.25 mg/mL SDV 4 mL 1 MG IVP ×2 (06:09→17:17)
[2024-11-25] MEDS: morphine 4 mg/mL SDV 1 mL 1 MG IVP ×4 (06:19→21:10)
--- NOTE | 2024-11-25 07:59 | P.PN_ITS ---
Subjective 2 Subjective: The patient is short of breath has a cough. Leg pains. No nausea no diarrhea positive edema does not feel lightheaded. Medications: Reviewed: Yes Medication Review Details: Current Medications Acetaminophen (Acetaminophen 325 Mg Tablet) 650 mg PO Q6H PRN PRN Reason: Mild/Mod Pain Or Temp >/= 101 Albuterol/Ipratropium (Ipratropium-Albuterol 3 Ml Neb) 3 ml INHALATION QID.RESPIRATORY LEATHA Last Admin: 11/24/24 20:28 Dose: 3 ml Budesonide (Budesonide 0.5 Mg/2 Ml Neb) 0.5 mg INHALATION BID.RESPIRATORY LEATHA Last Admin: 11/24/24 20:28 Dose: 0.5 mg Bumetanide (Bumetanide 0.25 Mg/Ml Sdv 4 Ml) 1 mg IVP Q12H [facility] Last Admin: 11/25/24 06:09 Dose: 1 mg Carvedilol (Carvedilol 25 Mg Tablet) 25 mg PO BID [facility] Last Admin: 11/25/24 04:59 Dose: 25 mg Ceftriaxone Sodium (Ceftriaxone 1,000 Mg Sdv) 1,000 mg IVP Q24H LEATHA; Protocol Doxazosin Mesylate (Doxazosin 4 Mg Tablet) 8 mg PO DAILY [facility] Escitalopram Oxalate (Escitalopram 10 Mg Tablet) 5 mg PO DAILY [facility] Last Admin: 11/25/24 07:40 Dose: 5 mg Gabapentin (Gabapentin 100 Mg Capsule) 100 mg PO TID [facility] Last Admin: 11/25/24 07:42 Dose: 100 mg Glucagon (Glucagon 1 Mg/Ml Kit 1 Ml) 1 mg IM ONCE PRN; Protocol PRN Reason: Adult Acute Hypoglycemia Nursing Prot. Heparin Sodium (Porcine) (Heparin 5,000 Unit/Ml Inj 1 Ml) 5,000 unit SUBCUT Q12H [facility] Last Admin: 11/25/24 06:09 Dose: 5,000 unit Hydralazine HCl (Hydralazine 25 Mg Tablet) 25 mg PO TID [facility] Last Admin: 11/25/24 04:59 Dose: 25 mg Azithromycin 500 mg/ Sodium (Chloride) 250 mls @ 250 mls/hr IV Q24H [facility]AT[facility]; Protocol Dextrose (D5w) 500 mls @ 0 mls/hr IV ONCE PRN; Protocol PRN Reason: Adult Acute Hypoglycemia Prot Dextrose (D10w) 125 mls @ 750 mls/hr IV PRN PRN; Protocol PRN Reason: Adult Acute Hypoglycemia Nursing Protocol Dextrose (D10w) 250 mls @ 1,000 mls/hr IV PRN PRN; Protocol PRN Reason: Adult Acute Hypoglycemia Nursing Protocol Insulin Glargine (Insulin Glargine 100 Units/1 Ml) 10 unit SUBCUT BEDTIME [facility] Last Admin: 11/24/24 20:57 Dose: Not Given Insulin Human Lispro (Insulin Lispro 100 Unit/1 Ml) 0 unit SUBCUT TIDWM LEATHA; Protocol Last Admin: 11/25/24 07:42 Dose: 8 unit Methylprednisolone Sodium Succinate (Methylprednisolone Sod Succ 40 Mg/Ml Inj) 40 mg IVP Q8H [facility] Last Admin: 11/25/24 06:08 Dose: 40 mg Morphine Sulfate (Morphine 4 Mg/Ml Sdv 1 Ml) 1 mg IVP Q4H PRN PRN Reason: SEVERE PAIN Last Admin: 11/25/24 06:19 Dose: 1 mg Naloxone HCl (Naloxone 0.4 Mg/Ml Sdv) 0.1 mg IVP Q2M PRN PRN Reason: OPIATERV Ondansetron HCl (Ondansetron 2 Mg/Ml Sdv 2 Ml) 4 mg IVP Q8H PRN PRN Reason: vomiting, or N/V if npo Pantoprazole Sodium (Pantoprazole Dr 40 Mg Tablet) 40 mg PO BID [facility] Last Admin: 11/25/24 07:40 Dose: 40 mg Vitals/I&O/Wt Last Vital Signs Temp 97.4 F L 11/25/24 07:55 Pulse 69 11/25/24 07:55 Resp 17 11/25/24 07:55 BP 184/88 11/25/24 07:55 Pulse Ox 92 11/25/24 07:55 O2 Del Method Room Air 11/25/24 07:55 O2 Flow Rate 2 11/25/24 03:08 11/24/24 11/25/24 11/25/24 22:59 06:59 14:59 Intake Total 250 / 250 Output Total 475 / 475 Balance -225 / -225 Weight last 48 hrs Weight 97.154 kg Weight 99.79 kg Weight 99.337 kg Physical Exam 2 Narrative: Blood pressure elevated. Patient is using NC O2 @ 2 L HEENT is normocephalic atraumatic. Neck is supple. Lungs have wheezes bilaterally. Patient has an anterior chest wall permacath. Heart regular positive S1-S2. Abdomen is soft nontender positive bowel sounds. Extremities -the patient has bilateral 1+ leg edema. Neuro awake alert oriented x 3 Data 11/25/24 04:46 11/25/24 04:46 Micro: Microbiology 11/24/24 17:33 Blood Culture - Preliminary Blood SPECIMEN COLLECTED 11/24/24 17:35 Blood Culture - Preliminary Blood SPECIMEN COLLECTED A&P Assessment and plan (1) ESRD (end stage renal disease): 54-year-old gentleman history of heart failure preserved EF, disseminated blastomycosis, cirrhosis, diabetes, COPD obstructive sleep apnea, had severe ascites and started dialysis in July 2024 then was taken off of dialysis and was restarted. The patient is here now after fall and shortness of breath. Will dialyze this morning for fluid removal 1. ESRD dialysis today. The patient was seen by me a few months ago when we temporarily did dialysis and was able to get him off dialysis. The patient states that he follows with Dr. William from [place] who put him back on dialysis for significant weight gain. 2. Anemia hemoglobin has improved from August. Iron saturation of 22% ferritin 550 can use iron. Will repeat SPEP and serum immunofixation. 3 shortness of breath will see if improves with dialysis 4. Diabetes hemoglobin A1c improved in September to 6.7. 5. Elevated troponin and BNP monitor with dialysis consider cardiology evaluation. Medications reviewed Patient seen and examined using A/V equipment with the aid of a nurse. Patient consented to telehealth and hemodialysis. Plan Shortness of breath. Evaluation as per medicine cardiology and we will continue hemodialysis for now. PDMP PDMP Reviewed: Not Reviewed Attestations 2 Medical Necessity Statement*: Hypertension shortness of breath ESRD. Time Spent in Patient Care: 16 - 35 minutes (>than 50% of time sp ent in counselling and/or direct pt care on unit) . Coding Level of Care Code Acute Code for Chg Fwd Diagnoses ESRD (end stage renal disease) N18.6
--- NOTE | 2024-11-25 08:15 | USCV_ITS ---
Koby Guido Age: 54 Gender: M : 1970 Exam Date: 11/25/2024 10:18 Ordering Phys: Zion Gillis MD Technologist: Exam Location: [facility] – [place] Indication: ef BP: 174 / 85 HR: Rhythm: Sinus Technical Quality: MEASUREMENTS (Male / Female) Normal Values 2D ECHO LV Diastolic Diameter PLAX 3.8 cm 4.2 - 5.9 / 3.9 - 5.3 cm IVS Diastolic Thickness 1.2 cm 0.6 - 1.0 / 0.6 - 0.9 cm IVS Systolic Thickness 1.5 cm LVPW Diastolic Thickness 1.1 cm 0.6 - 1.0 / 0.6 - 0.9 cm LVPW Systolic Thickness 2.3 cm LVOT Diameter 2.0 cm LV Ejection Fraction 2D Teich 46.8 % LV Ejection Fraction MOD 4C 56.3 % LV Ejection Fraction MOD 2C 56.3 % LV Ejection Fraction 2C AL 57.4 % LA Diameter 3.7 cm RA Systolic Volume 4C AL 43.1 ml RA Systolic Volume 4C MOD 39.1 ml Aorta at Sinotubular Diameter 3.1 cm IVC Diameter 2.2 cm M-MODE LA Ao Ratio MM 1.5 AV Cusp Separation MM 2.2 cm FINDINGS Left Ventricle Right Ventricle Right Atrium Left Atrium Mitral Valve Aortic Valve Tricuspid Valve Pulmonic Valve Pericardium Aorta IVC CONCLUSIONS Limited echocardiogram performed to assess LV systolic function. LV systolic function is normal with EF of 55-60%. No regional wall motion abnormalities. Raul Sánchez MD (Electronically Signed) Final Date: 26 November 2024 11:53 S
[2024-11-25] MEDS: heparin 5,000 unit/mL INJ 1 mL IVP (09:29)
[2024-11-25] MEDS: heparin drip 25,000 UNIT/500 ML PREMIX 27 UNIT IV (09:30)
[2024-11-25] MEDS: heparin, porcine 1,000 unit/mL INJ 10 mL 1000 UNIT INJECTION (09:30)
[2024-11-25] MEDS: ferric gluconate 125 MG in sodium chloride 0.9% (100 ml) 100 ML 110 MG IV (09:36)
--- NOTE | 2024-11-25 12:07 | PM.PN ---
Subjective Subjective: Patient was seen this morning, currently alert and oriented x 3, following all commands, he did have a slight episode of chest discomfort this morning, no fevers, no chills, does have a cough, does report shortness of breath, currently receiving dialysis Vitals/I&O/Wt Last Vital Signs Temp 97.4 F L 11/25/24 07:55 Pulse 80 11/25/24 08:30 Resp 16 11/25/24 11:16 BP 184/88 11/25/24 07:55 Pulse Ox 97 11/25/24 08:30 O2 Del Method Nasal Cannula 11/25/24 08:30 O2 Flow Rate 2 11/25/24 08:30 11/24/24 11/25/24 11/25/24 22:59 06:59 14:59 Intake Total 250 / 250 590 / 590 Output Total 475 / 475 Balance -225 / -225 590 / 590 Weight last 48 hrs Weight 97.154 kg Weight 99.79 kg Weight 99.337 kg Physical Exam Const: COMMON NORMALS: no acute distress and patient oriented x3 Resp: COMMON NORMALS: normal respiratory effort, No retractions and No use of accessory muscles AUSCULTATION: crackles and wheezes Cardio: COMMON NORMALS: regular rate, regular rhythm, S1 normal heart sound present and S2 normal heart sound present RATE: regular rate RHYTHM: regular rhythm HEART SOUNDS: S1 normal heart sound present and S2 normal heart sound present GI: COMMON NORMALS: Normal to inspection, nondistended, normoactive bowel sounds present and non-tender Extremity: NARRATIVE EXTREMITY EXAM: 1+ edema Neuro: COMMON NORMALS: patient oriented x3 Psych: COMMON NORMALS: mental status grossly normal Data 11/26/24 04:34 11/26/24 04:34 Micro: Microbiology 11/24/24 17:33 Blood Culture - Preliminary Blood SPECIMEN COLLECTED 11/24/24 17:35 Blood Culture - Preliminary Blood SPECIMEN COLLECTED A&P Assessment and plan (1) Acute hypoxic respiratory failure: (2) CHF exacerbation: (3) COPD exacerbation: (4) Pneumonia: (5) Diabetes: (6) Liver cirrhosis: (7) CKD (chronic kidney disease): (8) ESRD (end stage renal disease): Plan Acute hypoxic respiratory failure - Multifactorial - COPD exacerbation - Pneumonia, concerns with productive cough - Diastolic CHF exacerbation Plan - Solu-Medrol 125 followed by 40 mg IV every 8 hours - SeunoNeb - Budesonide - Bumex 1 mg IV push every 12 hours - Evita consulted for dialysis tomorrow - Continue Rocephin, Zithromycin - Cultures, blood cultures - Monitor respiratory status closely - Full code - Heparin for DVT prophylaxis NSTEMI, did have complaints of chest pain, serial EKGs, short of ones, telemetry monitoring, heparin drip, aspirin, statin, cardiology consultation End-stage renal disease on dialysis Fall, reported head trauma head CT, no acute findings Type 2 diabetes mellitus, low-dose sliding scale, Lantus 10 units at bedtime PDMP PDMP Reviewed: Last Reviewed 11/24/24 17:58 by Zion Gillis MD Attestations Medical Necessity Statement*: Patient requires hospitalization for acute hypoxic respiratory failure secondary to COPD, pneumonia, CHF Diagnoses Acute hypoxic respiratory failure J96.01 CHF exacerbation I50.9 COPD exacerbation J44.1 Pneumonia J18.9 Type 2 diabetes mellitus with other circulatory complication, with long-term current use of insulin E11.59; Z79.4 Diabetes mellitus complication detail: with other circulatory complications Diabetes mellitus complication status: with circulatory complication 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
--- NOTE | 2024-11-25 12:48 | PC.NURSE ---
Pt transferred from dialysis to [facility] room 107 at 1248.
--- NOTE | 2024-11-25 15:12 | P.CONIM_ITS ---
<Statement entered by Hernan Mckee MD - 11/25/24 19:00> Patient was evaluated and cared for in conjunction with an advanced practice practitioner. I personally examined the patient and reviewed the chart and all pertinent data including imaging, telemetry, and laboratory results. I discussed the patient in detail with the advanced practice practitioner. Please see their note for complete H&P testing result and agreed upon plan of care for the patient. 54-year-old male past medical history significant for hypertension hyperlipidemia chronic kidney disease on dialysis 3 times a week with port has not had mature fistula yet. Patient presented with worsening of shortness of breath and chest pain he was ruled in for non-ST elevation HI and noted to be in CHF exacerbation with some element of possible pneumonia. He was started on antibiotics and Bumex as a diuretics he has had hemodialysis as well today. We have been asked to assist in his care. GENERAL: Patient is alert, awake and oriented x3. HEART: Regular S1 and S2. No murmur, rub or gallop. LUNGS: Decreased breath sounds with minor crackles bilaterally. CENTRAL NERVOUS SYSTEM: Grossly nonfocal. EXTREMITIES: Lower extremities with out edema bilaterally. Acute decompensated diastolic heart failure [id number] HI Chronic kidney disease on hemodialysis Respiratory tract infection Continue IV heparin Continue IV Bumex diuresis Continue dialysis Continue aspirin and statin add beta-jossie Optimize medicine for good blood pressure control Once euvolemic plan for left heart cath most likely on Saturday morning Providers/Reason For Consult 2 Consulting Physician/Specialty*: Dr. Mckee Reason for Consult*: CHF, shortness of breath Requesting Physician: Dr. Gillis Attending Physician: Zion Gillis MD Primary Care Provider: PATRICE Nicole History of Present Illness History of Present Illness Guido Whalen is a 54 year old male with a history of end-stage renal disease requiring dialysis 3 days a week, diastolic heart failure, liver shortness, COPD, obstructive sleep apnea who presented to our emergency room for increased shortness of breath. He states he had experienced increased shortness of breath and edema that have worsened over the last several days. Denies any chest pressure or chest pain at this time. States in the past, randomly he has sharp pains on the left side of his chest without aggrivating or relieving factors. Troponins are elevated at baseline but were seen as 889?871.8?800.7. proBNP is elevated at baseline and was 31,317. Creatinine is 3.8. Patient does continue to make urine. EKG showed sinus rhythm with no acute ST or T wave abnormalities. CT of the chest was negative for PEs. Trace bilateral pleural effusions and scattered groundglass and nodular opacities within the lower lobe concerning for multifocal pneumonia was seen. Diffuse mediastinal lymphadenopathy was seen. Due to patient's recent fall head CT was done and this was negative for any acute intracranial abnormalities. He was seen in the clinic previously by Dr. Garcia who had ordered a stress test on the patient due to issues with diastolic heart failure. Previously his Bumex had been increased from 1 mg twice daily to 2 mg twice daily. Currently blood pressure is elevated 184/88. He is taking Coreg 25 mg twice daily, hydralazine 25 mg 3 times daily, Bumex 1 mg IV every 12. He was placed on a heparin drip. Currently taking aspirin and statin as well. Review of Systems 2 Narrative: Reports shortness of breath on exertion relieved with rest Reports lower extremity edema Denies any chest pressure or chest pain Denies s/s of stroke Denies nausea or vomiting Medications/Allergies Home Medications ?Medication ?Instructions ?Recorded ?Confirmed ?Last Taken ?Type albuterol sulfate 90 mcg/actuation 2 puff inhalation Q 4H PRN 08/05/24 11/24/24 Unknown History aerosol inhaler Shortness Of Breath insulin glargine 100 unit/mL (3 10 unit SUBCUT BEDTIME 08/05/24 11/24/24 11/23/24 History mL) subcutaneous pen (Lantus Solostar U-100 Insulin) insulin lispro 100 unit/mL See Rx Instructions .Route .COMPLEX 08/05/24 11/24/24 11/24/24 History subcutaneous pen oxycodone 10 mg tablet 10 mg PO Q4H PRN Pain 11/24/24 Unknown History cholecalciferol (vitamin D3) 1,250 50,000 mcg (40 x 1, 250 mcg (50,000 08/27/24 11/24/24 09/09/24 Rx mcg (50,000 unit) capsule unit)) PO Q7D #4 caps escitalopram oxalate 5 mg tablet 5 mg PO DAILY #30 tab s 09/07/24 11/24/24 11/24/24 Rx pantoprazole 40 mg tablet,delayed 40 mg PO BID #180 ta bs 09/08/24 11/24/24 11/24/24 Rx release (Protonix) voriconazole 200 mg tablet 200 mg PO Q12H 30 days #60 tabs 09/15/24 11/24/24 11/24/24 Rx cyclobenzaprine 10 mg tablet 10 mg PO BID PRN Spasms 0 09/16/24 11/24/24 Unknown History ferrous sulfate 325 mg (65 mg 325 mg PO .QOD 09/16/24 11/24/24 11/23/24 History iron) tablet (FeroSul) lidocaine 4 % topical patch 1 patch topical Q12H PRN P ain 09/16/24 11/24/24 Unknown History (Lidocaine Pain Relief) metolazone 2.5 mg tablet 2.5 mg PO DAILY 09/16/2406/2011/24/24 History doxazosin 8 mg tablet 8 mg PO DAILY #30 tabs 10/0111/24/24 11/24/24 Rx hydralazine 25 mg tablet 25 mg PO TID #90 tabs 11/24/24 11/24/24 Rx itraconazole 10 mg/mL oral solution 100 mg PO DAILY 11/24/24 11/23/24 History dapagliflozin propanediol 10 mg 10 mg PO QAM #30 tabs 10/27/24 11/24/24 11/24/24 Rx tablet (Farxiga) furosemide 40 mg tablet (Lasix) 40 mg PO BID #10 tabs 11/05/24 11/24/24 11/24/24 Rx gabapentin 100 mg capsule 100 mg PO TID #90 caps 11/1011/24/24 11/24/24 Rx bumetanide 2 mg tablet 2 mg PO BID 11/24/24 5 11/24/24 History carvedilol 25 mg tablet 25 mg PO BID 11/24/2411/24/24 History hydroxyzine HCl 25 mg tablet 25 mg PO BEDTIME PRN Inso mnia 11/24/24 11/24/24 11/23/24 History loperamide 2 mg capsule See Rx Instructions .Route 0 11/24/24 11/24/24 Unknown History .COMPLEX PRN Diarrhea potassium chloride 10 mEq 10 meq PO DAILY 11/24/2406/2011/24/24 History tablet,extended release torsemide 100 mg tablet 100 mg PO DAILY 11/24/2406/2011/24/24 History vitamin B complex with vit C-folic 1 tab PO DAILY 06/2011/24/24 11/24/24 History acid 800 mcg-zinc 12.5 mg tablet (RenaPlex) Allergies Allergy/AdvReac Type Severity Reaction Status Date / Time ketorolac Allergy ADR-Vomitin Verified 11/19/24 14:22 g Current Medications Generic Name Dose Route Start Last Admin Trade Name Freq PRN Reason Stop Dose Admin Albuterol/Ipratropium 3 ml 11/24/24 20:00 11/25/24 11:29 Ipratropium-Albuterol 3 Ml Neb INHALATION Not Given QID.RESPIRATORY LEATHA Aspirin 81 mg 11/25/24 08:20 11/25/24 09:03 Aspirin 81 Mg Ec Tablet PO 81 mg DAILY LEATHA Administration Budesonide 0.5 mg 11/24/24 20:00 11/25/24 08:29 Budesonide 0.5 Mg/2 Ml Neb INHALATION 0.5 mg BID.RESPIRATORY LEATHA Administration Bumetanide 1 mg 11/24/24 18:13 11/25/24 06:09 Bumetanide 0.25 Mg/Ml Sdv 4 Ml IVP 1 mg Q12H LEATHA Administration Carvedilol 25 mg 11/24/24 18:13 11/25/24 04:59 Carvedilol 25 Mg Tablet PO 25 mg BID LEATHA Administration Doxazosin Mesylate 8 mg 11/25/24 09:00 11/25/24 09:29 Doxazosin 4 Mg Tablet PO 8 mg DAILY LEATHA Administration Escitalopram Oxalate 5 mg 11/25/24 09:00 11/25/24 07:40 Escitalopram 10 Mg Tablet PO 5 mg DAILY LEATHA Administration Gabapentin 100 mg 11/24/24 21:00 11/25/24 13:59 Gabapentin 100 Mg Capsule PO 100 mg TID LEATHA Administration Heparin Sodium (Porcine) 0 unit 11/25/24 08:14 11/25/24 09:29 Heparin 5,000 Unit/Ml Inj 1 Ml IVP 4,900 unit PRN PRN Administration Heparin Weight Based Protocol -Subsequent Bolus Protocol Hydralazine HCl 25 mg 11/24/24 21:00 11/25/24 13:59 Hydralazine 25 Mg Tablet PO 25 mg TID LEATHA Administration Ferric Sodium Gluconate 125 mg 110 mls @ 110 mls/hr 11/25/24 08:15 11/25/24 10:37 / Sodium Chloride IV 11/28/24 09:14 Infused Q24H LEATHA Infusion Heparin Sodium/Sodium Chloride 25,000 unit in 500 mls @ 0 mls/hr 11/25/24 08:15 11/25/24 09:30 Heparin Drip IV 13.9 unit/kg/hr CONT LEATHA 27 mls/hr Protocol Administration Per Protocol Insulin Glargine 10 unit 11/24/24 21:00 11/24/24 20:57 Insulin Glargine 100 Units/1 Ml SUBCUT Not Given BEDTIME LEATHA Insulin Human Lispro 0 unit 11/24/24 18:13 11/25/24 12:34 Insulin Lispro 100 Unit/1 Ml SUBCUT Not Given TIDWM [facility] Protocol Methylprednisolone Sodium Succinate 40 mg 11/25/24 06:00 11/25/24 13:59 Methylprednisolone Sod Succ 40 Mg/Ml Inj IVP 40 mg Q8H LEATHA Administration Morphine Sulfate 1 mg 11/24/24 18:13 11/25/24 14:55 Morphine 4 Mg/Ml Sdv 1 Ml IVP 1 mg Q4H PRN Administration SEVERE PAIN Pantoprazole Sodium 40 mg 11/24/24 18:13 11/25/24 07:[address] 40 Mg Tablet PO 40 mg BID LEATHA Administration PFSH Acute 2 PFSH: Medical History Hypertension Diabetes CKD (chronic kidney disease) Liver cirrhosis MRSA pneumonia Blastomycosis of central nervous system Anemia Surgical History S/P percutaneous endoscopic gastrostomy (PEG) tube placement Tracheostomy status Past medical history positive for prolonged hospitalization secondary to angioedema requiring intubation, followed by tracheostomy after prolonged intubation, PEG tube placement after prolonged n.p.o. 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 07/17 MRI lumbar spine chronic degenerative changes, he was given prolonged antibiotics for possible osteomyelitis 08/01: Follow-up MRI no evidence of osteomyelitis Antimicrobial therapy IV vancomycin: Did not tolerate He was given linezolid, ceftaroline meropenem, micafungin, daptomycin Prolonged IV meropenem 07/23 till 08/01 Itraconazole prolonged therapy 07/22-08/01 PICC line removed And sent to spirometer [facility] provided Patient was discharged on room air EGD: 07/28: Gastritis: Colonoscopy 07/30: Nonbleeding internal hemorrhoids: 3 to 5 mm small polyps removed large 20 mm polyp removed as well: Patient was asked to follow-up for colonoscopy within 3 years Diarrhea: C. difficile panel negative: Patient was given Imodium on as-needed basis Family History Father Heart disease Social History Smoking and tobacco/nicotine status: former use of tobacco/nicotine Alcohol intake: former Household members: family Housing: House Vitals/I&O/Wt Last Vital Signs Temp 97.4 F L 11/25/24 07:55 Pulse 80 11/25/24 08:30 Resp 16 11/25/24 11:16 BP 184/88 11/25/24 07:55 Pulse Ox 97 11/25/24 08:30 O2 Del Method Nasal Cannula 11/25/24 08:30 O2 Flow Rate 2 11/25/24 08:30 11/25/24 11/25/24 11/25/24 06:59 14:59 22:59 Intake Total 590 / 590 Balance 590 / 590 Weight last 48 hrs Weight 214 lb 3 oz Weight 220 lb Weight 219 lb Physical Exam 2 Narrative: General: No apparent distress, healthy appearing, well nourished HENMT: normoceophalic Muskuloskeletal: Full ROM Respiratory: Normal respiratory effort, bilateral lower lobes slightly diminished, no use of accessory muscles Cardio: No JVD, regular rate, regular rhythm, S1 S2 normal, no murmurs, peripheral pulses 2+ radial palpated bilaterally, 1+ nonpitting edema bilateral lower extremities GI: Normal to inspection, nondistended Extremities: Full ROM, normal, normal capillary refill, no cyanosis Neuro: Alert and oriented x4, no focal motor deficits Psych: Affect normal, denies suicidal ideation, mental status grossly normal Skin: No rashes or lesions noted, no wounds Data 11/25/24 04:46 11/25/24 04:46 Micro: Microbiology 11/25/24 09:20 Gram Stain - Final Sputum - Expectorated Sputum 11/24/24 17:33 Blood Culture - Preliminary Blood SPECIMEN COLLECTED 11/24/24 17:35 Blood Culture - Preliminary Blood SPECIMEN COLLECTED A&P Assessment and plan (1) Acute hypoxic respiratory failure: (2) CHF exacerbation: (3) COPD exacerbation: (4) Pneumonia: (5) Diabetes: (6) Liver cirrhosis: (7) CKD (chronic kidney disease): (8) ESRD (end stage renal disease): Plan At this time, patient has NTEMI, CHF with significant troponin leak. Echo pending. Would recommend continue diuresis. Once patient is euvolemic, would recommend left heart cath with possible PCI. With elevated blood pressure, recommend increasing hydralazine to 50 mg TID. Thank you, Dr. Gillis, for allowing us to care for this very pleasant 54 year old gentleman. PDMP PDMP Reviewed: Not Reviewed Coding Level of Care Code Acute Code for [facility] Fwd Diagnoses Acute hypoxic respiratory failure J96.01 Acute on chronic diastolic congestive heart failure I50.33 Heart failure type: diastolic COPD exacerbation J44.1 Pneumonia due to infectious organism, unspecified laterality, unspecified part of lung J18.9 Pneumonia type: due to unspecified organism Laterality: unspecified laterality Lung location: unspecified part of lung Type 2 diabetes mellitus with other circulatory complication, with long-term current use of insulin E11.59; Z79.4 Diabetes mellitus complication detail: with other circulatory complications Diabetes mellitus complication status: with circulatory complication Diabetes mellitus intermediate insulin use: with exterminator termite use Diabetes mellitus type: type 2 Hepatic cirrhosis, unspecified hepatic cirrhosis type, unspecified whether ascites present K74.60 Ascites presence: unspecified Hepatic cirrhosis type: unspecified hepatic cirrhosis Stage 4 chronic kidney disease N18.4 Chronic kidney disease stage: stage 4 (GFR 15-29) ESRD (end stage renal disease) N18.6
[2024-11-25 15:44] LABS: Glucose Urine UA 3+ (Normal); Nitrate Urine Negative (Negative); Specific Gravity, Urine 1.027 (1.005-1.030)
[2024-11-25 15:50] LABS: Add Urine Microscopic? YES
[2024-11-25 17:04] LABS: Partial Thromboplastin Time 153.6 SECONDS (23.9-36.7)
[2024-11-25] MEDS: cefTRIAXone 1,000 mg SDV 1000 MG IVP (17:18)
[2024-11-25] MEDS: AZITHROMYCIN ADD-Vantage 500 MG in 0.9% NaCl ADD-Vantage 250 ML 250 MG IV (17:19)
[2024-11-25 17:29] LABS: UA Slide Review UA Slide Review Perf
[2024-11-25] MEDS: insulin glargine 100 units/1 mL 10 UNIT SUBCUT (21:11)
[2024-11-25 21:37] LABS: Partial Thromboplastin Time 29.4 SECONDS (23.9-36.7)
--- NOTE | 2024-11-25 23:16 | PC.NURSE ---
During day shift, heparin gtt was stopped due to high ptt of 153. Redraw for ptt was placed for 2100. New ptt is 29.4. Notified Dr. Parra that gtt was previous running at 27 mls/hr. Received orders to restart at same rate due to it being off for too long.
[2024-11-26] VITALS (16 sets, daily range): BP systolic 141–168; BP diastolic 72–112; PULSE 60–70; RESP 16–20; TEMP 36–37; O2SAT 93–100
--- NOTE | 2024-11-26 01:00 | PC.NURSE ---
Patient ambulated in [place] around 0005.
[2024-11-26] MEDS: morphine 4 mg/mL SDV 1 mL 1 MG IVP ×4 (02:32→22:26)
[2024-11-26 04:44] LABS: Hematocrit 30.8 % (37-53); Hemoglobin 9.10 g/dL (11.27-16.99); Mean Corpuscular HGB Conc 29.5 g/dL (30-55); Mean Corpuscular Hemoglobin 27.8 pg (27-33); Mean Corpuscular Volume 94.2 fl (82-101); Nucleated Red Blood Cells % 0 %; Platelet Count 122 10^3/cmm (157-399); Red Blood Count 3.27 10^6/uL (3.85-5.65); White Blood Count 10.96 10^3/uL (3.29-11.43)
[2024-11-26 04:57] LABS: Partial Thromboplastin Time 31.8 SECONDS (23.9-36.7)
[2024-11-26 05:01] LABS: Alanine Aminotransferase 23 U/L (0-41); Albumin Level 3.0 g/dL (3.5-5.2); Alkaline Phosphatase 195 U/L (40-130); Anion Gap 19.5 (5-19); Aspartate Amino Transferase 33 U/L (0-40); Blood Urea Nitrogen 50 mg/dL (6-20); Calcium 8.5 mg/dL (8.5-10.5); Carbon Dioxide 25 mmol/L (22-29); Chloride 97 mmol/L (98-107); Creatinine Clr Calc Pharmacy 24.0611; Globulin 4.6 g/dL (1.3-4.6); Glucose 330 mg/dL (65-115); Osmolality Calculated 310 mOsm/kg (285-295); Potassium 4.5 mmol/L (3.5-5.1); Sodium 137 mmol/L (136-145); Total Protein 7.6 g/dL (6.6-8.7)
[2024-11-26 05:12] LABS: Procalcitonin 0.32 ng/mL (0-0.5)
[2024-11-26 05:15] LABS: Magnesium 2.2 mg/dL (1.7-2.3)
[2024-11-26] MEDS: bumetanide 0.25 mg/mL SDV 4 mL 1 MG IVP ×2 (05:24→17:18)
[2024-11-26] MEDS: methylPREDNISolone sod succ 40 mg/mL INJ IVP (05:24)
[2024-11-26] MEDS: heparin 5,000 unit/mL INJ 1 mL IVP (05:24)
[2024-11-26 05:39] LABS: NT Pro B Type Natriuretic Pept 52962 pg/mL (0-125)
--- NOTE | 2024-11-26 06:43 | PM.PN ---
Subjective Subjective: sob, swollen, for cardiac cath tomorrow. remains weak. has some nausea Medications: Reviewed: Yes Medication Review Details: Current Medications Acetaminophen (Acetaminophen 325 Mg Tablet) 650 mg PO Q6H PRN PRN Reason: Mild/Mod Pain Or Temp >/= 101 Albuterol/Ipratropium (Ipratropium-Albuterol 3 Ml Neb) 3 ml INHALATION QID.RESPIRATORY LEATHA Last Admin: 11/25/24 20:30 Dose: 3 ml Amlodipine Besylate (Amlodipine 5 Mg Tablet) 5 mg PO DAILY LEATHA Last Admin: 11/25/24 21:08 Dose: 5 mg Aspirin (Aspirin 81 Mg Ec Tablet) 81 mg PO DAILY LEATHA Last Admin: 11/25/24 09:03 Dose: 81 mg Atorvastatin Calcium (Atorvastatin 40 Mg Tablet) 40 mg PO BEDTIME LEATHA Last Admin: 11/25/24 21:09 Dose: 40 mg Budesonide (Budesonide 0.5 Mg/2 Ml Neb) 0.5 mg INHALATION BID.RESPIRATORY LEATHA Last Admin: 11/25/24 20:30 Dose: 0.5 mg Bumetanide (Bumetanide 0.25 Mg/Ml Sdv 4 Ml) 1 mg IVP Q12H LEATHA Last Admin: 11/26/24 05:24 Dose: 1 mg Carvedilol (Carvedilol 25 Mg Tablet) 25 mg PO BID LEATHA Last Admin: 11/25/24 17:17 Dose: 25 mg Ceftriaxone Sodium (Ceftriaxone 1,000 Mg Sdv) 1,000 mg IVP Q24H LEATHA; Protocol Last Admin: 11/25/24 17:18 Dose: 1,000 mg Doxazosin Mesylate (Doxazosin 4 Mg Tablet) 8 mg PO DAILY LEATHA Last Admin: 11/25/24 09:29 Dose: 8 mg Escitalopram Oxalate (Escitalopram 10 Mg Tablet) 5 mg PO DAILY LEATHA Last Admin: 11/25/24 07:40 Dose: 5 mg Gabapentin (Gabapentin 100 Mg Capsule) 100 mg PO TID LEATHA Last Admin: 11/25/24 21:09 Dose: 100 mg Glucagon (Glucagon 1 Mg/Ml Kit 1 Ml) 1 mg IM ONCE PRN; Protocol PRN Reason: Adult Acute Hypoglycemia Nursing Prot. Heparin Sodium (Porcine) (Heparin 5,000 Unit/Ml Inj 1 Ml) 0 unit IVP PRN PRN; Protocol PRN Reason: Heparin Weight Based Protocol -Subsequent Bolus Last Admin: 11/26/24 05:24 Dose: 4,900 unit Hydralazine HCl (Hydralazine 25 Mg Tablet) 75 mg PO TID [facility] Last Admin: 11/25/24 21:09 Dose: 75 mg Azithromycin 500 mg/ Sodium (Chloride) 250 mls @ 250 mls/hr IV Q24H [facility]; Protocol Last Infusion: 11/25/24 18:52 Dose: Infused Dextrose (D5w) 500 mls @ 0 mls/hr IV ONCE PRN; Protocol PRN Reason: Adult Acute Hypoglycemia Prot Dextrose (D10w) 125 mls @ 750 mls/hr IV PRN PRN; Protocol PRN Reason: Adult Acute Hypoglycemia Nursing Protocol Dextrose (D10w) 250 mls @ 1,000 mls/hr IV PRN PRN; Protocol PRN Reason: Adult Acute Hypoglycemia Nursing Protocol Ferric Sodium Gluconate 125 mg (/ Sodium Chloride) 110 mls @ 110 mls/hr IV Q24H LEATHA Stop: 11/28/24 09:14 Last Infusion: 11/25/24 10:37 Dose: Infused Heparin Sodium/Sodium Chloride (Heparin Drip) 25,000 unit in 500 mls @ 0 mls/hr IV CONT LEATHA; Protocol Last Titration: 11/26/24 05:10 Dose: 16.98 unit/kg/hr, 33 mls/hr Insulin Glargine (Insulin Glargine 100 Units/1 Ml) 10 unit SUBCUT BEDTIME LEATHA Last Admin: 11/25/24 21:11 Dose: 10 unit Insulin Human Lispro (Insulin Lispro 100 Unit/1 Ml) 0 unit SUBCUT TIDWM [facility]; Protocol Last Admin: 11/25/24 17:18 Dose: 10 unit Isosorbide Mononitrate (Isosorbide Mononitrate Er 30 Mg Tablet) 30 mg PO DAILY [facility] Last Admin: 11/25/24 21:10 Dose: 30 mg Methylprednisolone Sodium Succinate (Methylprednisolone Sod Succ 40 Mg/Ml Inj) 40 mg IVP Q8H LEATHA Last Admin: 11/26/24 05:24 Dose: 40 mg Morphine Sulfate (Morphine 4 Mg/Ml Sdv 1 Ml) 1 mg IVP Q4H PRN PRN Reason: SEVERE PAIN Last Admin: 11/26/24 02:32 Dose: 1 mg Naloxone HCl (Naloxone 0.4 Mg/Ml Sdv) 0.1 mg IVP Q2M PRN PRN Reason: OPIATERV Ondansetron HCl (Ondansetron 2 Mg/Ml Sdv 2 Ml) 4 mg IVP Q8H PRN PRN Reason: vomiting, or N/V if npo Pantoprazole Sodium (Pantoprazole Dr 40 Mg Tablet) 40 mg PO BID LEATHA Last Admin: 11/25/24 17:17 Dose: 40 mg Vitals/I&O/Wt Last Vital Signs Temp 98.2 F 11/26/24 04:00 Pulse 66 11/26/24 04:00 Resp 19 H 11/26/24 04:00 BP 149/88 11/26/24 04:00 Pulse Ox 96 11/26/24 04:00 O2 Del Method Nasal Cannula 11/26/24 04:00 O2 Flow Rate 2 11/25/24 20:39 11/25/24 11/25/24 11/26/24 14:59 22:59 06:59 Intake Total 590 / 590 1297.2 / 1887.2 607.4 / 2494.6 Output Total 3983 / 3983 0 / 3983 Balance 590 / 590 -2685.8 / -2095.8 607.4 / -1488.4 Weight last 48 hrs Weight 96.116 kg Weight 96.6 kg Weight 97.154 kg Weight 99.79 kg Weight 99.337 kg Physical Exam Narrative: vital signs noted Patient is using NC O2 @ 2 L HEENT is normocephalic atraumatic. Neck is supple. Lungs have wheezes and crackles bilaterally. Patient has an anterior chest wall permacath. Heart regular positive S1-S2. Abdomen is soft nontender positive bowel sounds. Extremities -the patient has bilateral 1+ leg edema. Neuro awake alert oriented x 3 Data 11/26/24 04:34 11/26/24 04:34 Micro: Microbiology 11/24/24 17:33 Blood Culture - Preliminary Blood NEGATIVE TO DATE 11/24/24 17:35 Blood Culture - Preliminary Blood NEGATIVE TO DATE 11/25/24 09:20 Gram Stain - Final Sputum - Expectorated Sputum A&P Assessment and plan (1) ESRD (end stage renal disease): 54-year-old gentleman history of heart failure preserved EF, disseminated blastomycosis, cirrhosis, diabetes, COPD obstructive sleep apnea, had severe ascites and started dialysis in July 2024 then was taken off of dialysis and was restarted. 1. ESRD dialysis done yesterday. will do extra HD today. The patient was seen by me a few months ago when we temporarily did dialysis and was able to get him off dialysis. The patient states that he follows with Dr. William from [place] who put him back on dialysis for significant weight gain. 2. Anemia hemoglobin has improved from August. Iron saturation of 22% ferritin 550 can use iron. await repeat SPEP and serum immunofixation. 3 shortness of breath- extra dialysis today. cardiac cath tomorrow 4. Diabetes hemoglobin A1c improved in September to 6.7. 5. Elevated troponin and BNP -cardiac cath tomorrow Medications reviewed Patient seen and examined using A/V equipment with the aid of a nurse. Patient consented to telehealth and hemodialysis. Plan Shortness of breath. Evaluation as per medicine cardiology and we will continue hemodialysis for now. PDMP PDMP Reviewed: Not Reviewed Attestations Medical Necessity Statement*: ESRD, volume overload, for dialysis and cardiac cath Time Spent in Patient Care: 16 - 35 minutes (>than 50% of time spent in counselling and/or direct pt care on unit). Coding Level of Care Code Acute Code for [facility] Fwd Diagnoses ESRD (end stage renal disease) N18.6
[2024-11-26 07:14] LABS: PROTEIN, TOTAL 7.4 g/dL (6.1-8.1)
--- NOTE | 2024-11-26 09:51 | P.PN_ITS ---
<Statement entered by Hernan Mckee MD - 11/26/24 13:01> Patient was evaluated and cared for in conjunction with an advanced practice practitioner. I personally examined the patient and reviewed the chart and all pertinent data including imaging, telemetry, and laboratory results. I discussed the patient in detail with the advanced practice practitioner. Please see their note for complete H&P testing result and agreed upon plan of care for the patient. Subjective 2 Subjective: He reports intermittent left-sided chest pain this morning. Some seems to be musculoskeletal in nature, also some typical chest pain as well. Blood pressure uncontrolled. He has posterior crackles upper and lower no lower extremity edema or abdominal distention creatinine 3.9. On heparin infusion. Vitals/I&O/Wt Last Vital Signs Temp 98.2 F 11/26/24 04:00 Pulse 66 11/26/24 08:00 Resp 20 H 11/26/24 08:00 BP 142/77 11/26/24 08:00 Pulse Ox 96 11/26/24 08:00 O2 Del Method Nasal Cannula 11/26/24 07:33 O2 Flow Rate 1 11/26/24 07:33 11/25/24 11/26/24 11/26/24 22:59 06:59 14:59 Intake Total 1297.2 / 2494.6 607.4 / 2494.6 Output Total 3983 / 3983 0 / 3983 Balance -2685.8 / -1488.4 607.4 / -1488.4 Weight last 48 hrs Weight 211 lb 14.4 oz Weight 212 lb 15.465 oz Weight 214 lb 3 oz Weight 220 lb Weight 219 lb Physical Exam 2 Const: COMMON NORMALS: no acute distress and patient oriented x3 GENERAL APPEARANCE: cooperative and comfortable ORIENTATION/CONSCIOUSNESS: Yes awake, Yes oriented to person, Yes oriented to place and Yes oriented to time Chest: COMMONS NORMALS: normal inspection of the chest and normal palpation of entire chest wall CHEST: Yes Symmetrical chest wall rise Resp: COMMON NORMALS: normal respiratory effort, No retractions and No use of accessory muscles EFFORT & INSPECTION: Yes symmetric chest movement A USCULTATION: crackles Laterality: right, left and posterior Cardio: COMMON NORMALS: regular rate, regular rhythm, S1 normal heart sound present, S2 normal heart sound present, No gallops present (Cardio), No clicks present (Cardio), No murmurs present (Cardio) and No rub (Cardio) RATE: r egular rate RHYTHM: regular rhythm HEART SOUNDS: S1 normal heart sound present and S2 normal heart sound present PERIPHERAL PULSES: radial pulses present Extremity: COMMON NORMALS: no pedal edema Neuro: COMMON NORMALS: patient oriented x3 and moves all extremities S ENSORIUM/ORIENTATION: Yes oriented to person, Yes oriented to place and Yes oriented to time Data 11/26/24 04:34 11/26/24 04:34 Micro: Microbiology 11/24/24 17:33 Blood Culture - Preliminary Blood NEGATIVE TO DATE 11/24/24 17:35 Blood Culture - Preliminary Blood NEGATIVE TO DATE 11/25/24 09:20 Gram Stain - Final Sputum - Expectorated Sputum A&P Assessment and plan (1) CHF exacerbation: (2) Hypertension: (3) Diabetes: (4) ESRD (end stage renal disease): (5) Pneumonia: Plan Plan is for coronary angiogram on Saturday morning. Continue carvedilol, Bumex, atorvastatin, amlodipine, Imdur, hydralazine. Crackles appear to be more related to pneumonia rather than volume overload. Cough is productive at times. 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
[2024-11-26] MEDS: heparin drip 25,000 UNIT/500 ML PREMIX 33 UNIT IV (10:43)
[2024-11-26 11:35] LABS: Partial Thromboplastin Time 124.2 SECONDS (23.9-36.7)
--- NOTE | 2024-11-26 12:46 | PC.NURSE ---
Patient ptt came back a 124.2 physician notified, orders to hold heparin gtt x4h and repeat ptt
--- NOTE | 2024-11-26 12:52 | PC.NURSE ---
pt leaving unit for dialysis
--- NOTE | 2024-11-26 13:09 | P.PN_ITS ---
Subjective 2 Subjective: Patient was seen this morning, denies any fevers, chills, cough, nausea, vomiting, no chest pain Vitals/I&O/Wt Last Vital Signs Temp 98.1 F 11/26/24 11:58 Pulse 67 11/26/24 11:58 Resp 20 H 11/26/24 11:58 BP 153/77 11/26/24 11:58 Pulse Ox 96 11/26/24 11:58 O2 Del Method Room Air 11/26/24 11:58 O2 Flow Rate 1 11/26/24 11:19 11/25/24 11/26/24 11/26/24 22:59 06:59 14:59 Intake Total 1297.2 / 1887.2 607.4 / 2494.6 553.95 / 553.95 Output Total 3983 / 3983 0 / 3983 Balance -2685.8 / -2095.8 607.4 / -1488.4 553.95 / 553.95 Weight last 48 hrs Weight 96.116 kg Weight 96.6 kg Weight 97.154 kg Weight 99.79 kg Weight 99.337 kg Physical Exam 2 Const: COMMON NORMALS: no acute distress and patient oriented x3 Resp: COMMON NORMALS: normal respiratory effort, No retractions, No use of accessory muscles and clear to auscultation bilaterally AUSCULTATION: clear to auscultation bilaterally Cardio: COMMON NORMALS: regular rate, regular rhythm, S1 normal heart sound present and S2 normal heart sound present RATE: regular rate RHYTHM: r egular rhythm HEART SOUNDS: S1 normal heart sound present and S2 normal heart sound present GI: COMMON NORMALS: Normal to inspection, nondistended, normoactive bowel sounds present and non-tender Extremity: NARRATIVE EXTREMITY EXAM: 1+ edema Neuro: COMMON NORMALS: patient oriented x3 Psych: COMMON NORMALS: mental status grossly normal Data 11/26/24 04:34 11/26/24 04:34 Micro: Microbiology 11/25/24 09:20 Gram Stain - Final Sputum - Expectorated Sputum Sputum Culture - Preliminary 11/24/24 17:33 Blood Culture - Preliminary Blood NEGATIVE TO DATE 11/24/24 17:35 Blood Culture - Preliminary Blood NEGATIVE TO DATE A&P Assessment and plan (1) Acute hypoxic respiratory failure: (2) CHF exacerbation: (3) COPD exacerbation: (4) Pneumonia: (5) Diabetes: (6) Liver cirrhosis: (7) CKD (chronic kidney disease): (8) ESRD (end stage renal disease): Plan Acute hypoxic respiratory failure - Multifactorial - COPD exacerbation - Pneumonia, concerns with productive cough - Diastolic CHF exacerbation Plan - Solu-Medrol 125 followed by 40 mg IV every 8 hours, de-escalate to prednisone 40 mg daily - DuoNeb - Budesonide - Bumex 1 mg IV push every 12 hours - [facility] consulted for dialysis tomorrow - Continue Rocephin, Zithromycin - Cultures, blood cultures - Monitor respiratory status closely - Full code - Heparin for DVT prophylaxis NSTEMI, did have complaints of chest pain, serial EKGs, short of ones, telemetry monitoring, heparin drip, aspirin, statin, cardiology consultation End-stage renal disease on dialysis Fall, reported head trauma head CT, no acute findings Type 2 diabetes mellitus, moderate-dose sliding scale, Lantus 10 units at bedtime Plan on dialysis today, de-escalate steroids continue IV antibiotics, n.p.o. midnight for stress test tomorrow PDMP PDMP Reviewed: Last Reviewed 11/24/24 17:58 by Zion Gillis MD Attestations 2 Medical Necessity Statement*: Patient requires hospitalization for acute hypoxic respiratory failure secondary to COPD, pneumonia, diastolic CHF Diagnoses Acute hypoxic respiratory failure J96.01 Acute on chronic diastolic congestive heart failure I50.33 Heart failure type: diastolic COPD exacerbation J44.1 Pneumonia due to infectious organism, unspecified laterality, unspecified part of lung J18.9 Pneumonia type: due to unspecified organism Laterality: unspecified laterality Lung location: unspecified part of lung Type 2 diabetes mellitus with other circulatory complication, 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
--- NOTE | 2024-11-26 13:14 | PM.CONSULT ---
Providers/Reason For Consult Consulting Physician/Specialty*: Alondra Lee MD / Infectious Disease Reason for Consult*: h/o blastomycosis, voriconazole course Requesting Physician: Zion Gillis MD Attending Physician: Zion Gillis MD Primary Care Provider: PATRICE Nicole History of Present Illness History of Present Illness Guido Whalen is a 54 year old male with a past medical history of hypertension dyslipidemia CKD diabetes mellitus and PEDRITO/COPD who was admitted at an outside hospital [facility] in [facility] in May 2024. He was diagnosed with MRSA and influenza pneumonia at that time and received a prolonged course of IV antibiotics. He needed a trach and a PEG on this admission both of which were subsequently able to be removed. PHILIP was negative for any vegetations. It appears as part of his overall source evaluation he had possible discitis/osteomyelitis and received an extended course of antibiotics via PICC line for this reason. Incidentally as part of the workup he was found to have a positive Blastomyces antigen in the urine. CSF Blastomyces was reported positive . Unfortunately infectious disease records are not available to us for review. He was treated with itraconazole on that inpatient admission and was continued on 200 mg twice daily dosing. He moved to the [facility] from [place] and was seen for the first time on an inpatient admission in July 2024 for increasing fatigue anasarca and was found to have REBECCA and hyperkalemia for which he started hemodialysis. Itraconazole was continued while awaiting records but then later changed to Voriconazole in August 2024 when we was admitted with anasarca in case itraconazole contributing to CHF/negative inotropic effects and scrotal edema. He was meant to follow up in ID clinic on November 24 however needed to come to the ER instaed due to dyspnea, anasarca and hypoxic respiratory failure. Since last being seen in August 2024, He has started maintenece hemodialysis three times per week and has resolved scrotal edema. He denies any fever. chills, nausea, vomiting. He states that his dose of vorinconazole was dropped to once daily at ? dialysis?. Review of Systems General: Reports: 10 or more systems reviewed and unremarkable except in HPI and below Const: Denies: fever(s), chills or body aches Eyes: Denies: change in vision, blurry vision or photophobia ENMT: Reports: hoarseness; Denies: throat pain, enlarged tonsils, odynophagia or nasal congestion Card: Denies: chest pain, palpitations, irregular heart rhythm, edema, swelling of feet/ankles, lightheadedness, pre-syncope, dyspnea on exertion or orthopnea Resp: Denies: dyspnea, productive cough, non-productive cough, wheezing, stridor, pain on inspiration, change in phlegm color, hemoptysis or chest congestion GI: Denies: abdominal pain, nausea, vomiting, hematemesis, coffee ground emesis, dysphagia, heartburn, diarrhea, constipation, GI cramping, change in stool character, hematochezia or melena : Denies: flank pain, dysuria, urinary frequency, urinary urgency, urinary hesitancy or hematuria Musc: Denies: neck pain, back pain, extremity pain, joint swelling, joint warmth or deformity Neuro: Denies: headache(s), numbness in extremities, weakness in extremities, sensory changes, difficulty walking, frequent falls, dizziness, vertigo, behavioral changes, Slurred speech present or seizure-like activity Psych: Denies: anxiety, depression, suicidal ideation or homicidal ideation Endo: Denies: polyuria, polydipsia, tired all the time, cold intolerance or hot flashes Chavez/Lymph: Denies: easy bruising or easy bleeding Medications/Allergies Home Medications ?Medication ?Instructions ?Recorded ?Confirmed ?Last Taken ?Type albuterol sulfate 90 mcg/actuation 2 puff inhalation Q4H PRN 08/05/24 11/24/24 Unknown History aerosol inhaler Shortness Of Breath insulin glargine 100 unit/mL (3 10 unit SUBCUT BEDTIME 08/05/24 11/24/24 11/23/24 History mL) subcutaneous pen (Lantus Solostar U-100 Insulin) insulin lispro 100 unit/mL See Rx Instructions .Route .COMPLEX 08/05/24 11/24/24 11/24/24 History subcutaneous pen oxycodone 10 mg tablet 10 mg PO Q4H PRN Pain 08/05/24 11/24/24 Unknown History cholecalciferol (vitamin D3) 1,250 50,000 mcg (40 x 1,250 mcg (50,000 08/27/24 11/24/24 09/09/24 Rx mcg (50,000 unit) capsule unit)) PO Q7D #4 caps escitalopram oxalate 5 mg tablet 5 mg PO DAILY #30 tabs 09/07/24 11/24/24 11/24/24 Rx pantoprazole 40 mg tablet,delayed 40 mg PO BID #180 tabs 09/08/24 11/24/24 11/24/24 Rx release (Protonix) voriconazole 200 mg tablet 200 mg PO Q12H 30 days #60 tabs 09/15/24 11/24/24 11/24/24 Rx cyclobenzaprine 10 mg tablet 10 mg PO BID PRN Spasms 09/16/24 11/24/24 Unknown History ferrous sulfate 325 mg (65 mg 325 mg PO .QOD 09/16/24 11/24/24 11/23/24 History iron) tablet (FeroSul) lidocaine 4 % topical patch 1 patch topical Q12H PRN Pain 09/16/24 11/24/24 Unknown History (Lidocaine Pain Relief) metolazone 2.5 mg tablet 2.5 mg PO DAILY 09/16/24 11/24/24 11/24/24 History doxazosin 8 mg tablet 8 mg PO DAILY #30 tabs 10/01/24 11/24/24 11/24/24 Rx hydralazine 25 mg tablet 25 mg PO TID #90 tabs 10/20/24 11/24/24 11/24/24 Rx itraconazole 10 mg/mL oral solution 100 mg PO DAILY 10/20/24 11/24/24 11/23/24 History dapagliflozin propanediol 10 mg 10 mg PO QAM #30 tabs 10/27/24 11/24/24 11/24/24 Rx tablet (Farxiga) furosemide 40 mg tablet (Lasix) 40 mg PO BID #10 tabs 11/05/24 11/24/24 11/24/24 Rx gabapentin 100 mg capsule 100 mg PO TID #90 caps 11/10/24 11/24/24 11/24/24 Rx bumetanide 2 mg tablet 2 mg PO BID 11/24/24 11/24/24 11/24/24 History carvedilol 25 mg tablet 25 mg PO BID 11/24/24 11/24/24 11/24/24 History hydroxyzine HCl 25 mg tablet 25 mg PO BEDTIME PRN Insomnia 11/24/24 11/24/24 11/23/24 History loperamide 2 mg capsule See Rx Instructions .Route 11/24/24 11/24/24 Unknown History .COMPLEX PRN Diarrhea potassium chloride 10 mEq 10 meq PO DAILY 11/24/24 11/24/24 11/24/24 History tablet,extended release torsemide 100 mg tablet 100 mg PO DAILY 11/24/24 11/24/24 11/24/24 History vitamin B complex with vit C-folic 1 tab PO DAILY 11/24/24 11/24/24 11/24/24 History acid 800 mcg-zinc 12.5 mg tablet (RenaPlex) Allergies Allergy/AdvReac Type Severity Reaction Status Date / Time ketorolac Allergy ADR-Vomitin Verified 11/19/24 14:22 g Current Medications Generic Name Dose Route Start Last Admin Trade Name Freq PRN Reason Stop Dose Admin Albuterol/Ipratropium 3 ml 11/24/24 20:00 11/26/24 11:18 Ipratropium-Albuterol 3 Ml Neb INHALATION 3 ml QID.RESPIRATORY LEATHA Administration Amlodipine Besylate 5 mg 11/25/24 19:35 11/26/24 08:25 Amlodipine 5 Mg Tablet PO 5 mg DAILY LEATHA Administration Aspirin 81 mg 11/25/24 08:20 11/26/24 08:24 Aspirin 81 Mg Ec Tablet PO 81 mg DAILY LEATHA Administration Atorvastatin Calcium 40 mg 11/25/24 21:00 11/25/24 21:09 Atorvastatin 40 Mg Tablet PO 40 mg BEDTIME LEATHA Administration Budesonide 0.5 mg 11/24/24 20:00 11/26/24 07:25 Budesonide 0.5 Mg/2 Ml Neb INHALATION 0.5 mg BID.RESPIRATORY LEATHA Administration Bumetanide 1 mg 11/24/24 18:13 11/26/24 05:24 Bumetanide 0.25 Mg/Ml Sdv 4 Ml IVP 1 mg Q12H LEATHA Administration Carvedilol 25 mg 11/24/24 18:13 11/26/24 08:25 Carvedilol 25 Mg Tablet PO 25 mg BID LEATHA Administration Ceftriaxone Sodium 1,000 mg 11/25/24 17:00 11/25/24 17:18 Ceftriaxone 1,000 Mg Sdv IVP 1,000 mg Q24H LEATHA Administration Protocol Doxazosin Mesylate 8 mg 11/25/24 09:00 11/26/24 08:25 Doxazosin 4 Mg Tablet PO 8 mg DAILY LEATHA Administration Escitalopram Oxalate 5 mg 11/25/24 09:00 11/26/24 08:25 Escitalopram 10 Mg Tablet PO 5 mg DAILY LEATHA Administration Gabapentin 100 mg 11/24/24 21:00 11/26/24 08:25 Gabapentin 100 Mg Capsule PO 100 mg TID LEATHA Administration Heparin Sodium (Porcine) 0 unit 11/25/24 08:14 11/26/24 05:24 Heparin 5,000 Unit/Ml Inj 1 Ml IVP 4,900 unit PRN PRN Administration Heparin Weight Based Protocol -Subsequent Bolus Protocol Hydralazine HCl 75 mg 11/25/24 21:00 11/26/24 08:24 Hydralazine 25 Mg Tablet PO 75 mg TID [facility] Administration Azithromycin 500 mg/ Sodium 250 mls @ 250 mls/hr 11/25/24 18:00 11/25/24 18:52 Chloride IV Infused Q24H [facility] Infusion Protocol Ferric Sodium Gluconate 125 mg 110 mls @ 110 mls/hr 11/25/24 08:15 11/26/24 12:15 / Sodium Chloride IV 11/28/24 09:14 Not Given Q24H [facility] Heparin Sodium/Sodium Chloride 25,000 unit in 500 mls @ 0 mls/hr 11/25/24 08:15 11/26/24 12:44 Heparin Drip IV 0 unit/kg/hr CONT LEATHA 0 mls/hr Protocol Titration Per Protocol Insulin Glargine 10 unit 11/24/24 21:00 11/25/24 21:11 Insulin Glargine 100 Units/1 Ml SUBCUT 10 unit BEDTIME LEATHA Administration Insulin Human Lispro 0 unit 11/24/24 18:13 11/26/24 11:59 Insulin Lispro 100 Unit/1 Ml SUBCUT 10 unit TIDWM [facility] Administration Protocol Isosorbide Mononitrate 30 mg 11/25/24 19:35 11/26/24 08:25 Isosorbide Mononitrate Er 30 Mg Tablet PO 30 mg DAILY LEATHA Administration Morphine Sulfate 1 mg 11/24/24 18:13 11/26/24 08:23 Morphine 4 Mg/Ml Sdv 1 Ml IVP 1 mg Q4H PRN Administration SEVERE PAIN Pantoprazole Sodium 40 mg 11/24/24 18:13 11/26/24 08:[address] 40 Mg Tablet PO 40 mg BID LEATHA Administration PFSH Acute PFSH: Medical History Hypertension Diabetes CKD (chronic kidney disease) Liver cirrhosis MRSA pneumonia Blastomycosis of central nervous system Anemia Surgical History S/P percutaneous endoscopic gastrostomy (PEG) tube placement Tracheostomy status Past medical history positive for prolonged hospitalization secondary to angioedema requiring intubation, followed by tracheostomy after prolonged intubation, PEG tube placement after prolonged n.p.o. 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 07/17 MRI lumbar spine chronic degenerative changes, he was given prolonged antibiotics for possible osteomyelitis 08/01: Follow-up MRI no evidence of osteomyelitis Antimicrobial therapy IV vancomycin: Did not tolerate He was given linezolid, ceftaroline meropenem, micafungin, daptomycin Prolonged IV meropenem 07/23 till 08/01 Itraconazole prolonged therapy 07/22-08/01 PICC line removed And sent to spirometer [facility] provided Patient was discharged on room air EGD: 07/28: Gastritis: Colonoscopy 07/30: Nonbleeding internal hemorrhoids: 3 to 5 mm small polyps removed large 20 mm polyp removed as well: Patient was asked to follow-up for colonoscopy within 3 years Diarrhea: C. difficile panel negative: Patient was given Imodium on as-needed basis Family History Father Heart disease Social History Smoking and tobacco/nicotine status: former use of tobacco/nicotine Alcohol intake: former Household members: family Housing: House Vitals/I&O/Wt Last Vital Signs Temp 98.1 F 11/26/24 11:58 Pulse 67 11/26/24 11:58 Resp 20 H 11/26/24 11:58 BP 153/77 11/26/24 11:58 Pulse Ox 96 11/26/24 11:58 O2 Del Method Room Air 11/26/24 11:58 O2 Flow Rate 1 11/26/24 11:19 11/25/24 11/26/24 11/26/24 22:59 06:59 14:59 Intake Total 1297.2 / 1887.2 607.4 / 2494.6 553.95 / 553.95 Output Total 3983 / 3983 0 / 3983 Balance -2685.8 / -2095.8 607.4 / -1488.4 553.95 / 553.95 Weight last 48 hrs Weight 96.116 kg Weight 96.6 kg Weight 97.154 kg Weight 99.79 kg Weight 99.337 kg Physical Exam Narrative: General: No acute distress, AO x3, seen on dialysis HEENT: PERRLA, pupils bilaterally equal and reactive, pallors not present Chest: Normal vesicular breath sounds, no added sounds, equal good air entry bilaterally CVS: S1-S2 regular, no murmurs, no tachycardia, no gallops, no rubs Abdomen: Soft, nontender, no organomegaly, bowel sounds present Neuro: No focal deficits, no facial deformity, AO x3, power 5/5 in all limbs Data 11/30/24 15:55 11/30/24 02:23 Micro: Microbiology 11/25/24 09:20 Gram Stain - Final Sputum - Expectorated Sputum Sputum Culture - Preliminary 11/24/24 17:33 Blood Culture - Preliminary Blood NEGATIVE TO DATE 11/24/24 17:35 Blood Culture - Preliminary Blood NEGATIVE TO DATE Other data: Ordering Provider/Ordering MD: Zion Gillis MD Date of Service: 11/24/24 Procedure(s): CT head wo con* [id number] CT/CT head wo con* [id number] IMPRESSION: No acute intracranial abnormality. Date of Service: 11/24/24 Procedure(s): CT angio chest PE protcl [id number] CT/CT angio chest PE protcl [id number] IMPRESSION: 1. Negative for pulmonary emboli. 2. Trace bilateral pleural effusions and scattered ground-glass and nodular opacities with lower lobe predominance concerning for multifocal infectious process. 3. Diffuse mediastinal lymphadenopathy, nonspecific findings and may be reactive. Few scattered calcified lymph nodes are present consistent with sequela of prior healed granulomatous disease. 4. Partially visualized trace perihepatic and perisplenic ascites. Date of Service: 11/24/24 Procedure(s): XR chest 1V portable [id number] FINDINGS: Tubes, catheters and devices: Right-sided central venous catheter with its distal tip in the superior atriocaval junction. Lungs: Improved patchy bilateral airspace opacities with mild residual amounts remaining. No focal new airspace abnormality. Pleural spaces: Unremarkable. No pleural effusion. No pneumothorax. Heart/Mediastinum: Unremarkable. No cardiomegaly. Bones/joints: Unremarkable. XR/XR chest 1V portable [id number] IMPRESSION: As above. NAME: Guido Whalen LOC: [facility] U #: [id number] AGE/SX: 54/M ROOM: RE09/29/[address]: Mai Garcia MD : 1970 BED: DIS: FAX #: STATUS: DEP AMB TLOC: Spec : [id number] Lg: 09/29/24 Status: COMP Req : [id number] Recd: 09/29/24-[address]: Alondra Lee MD Ordered: Blast AB Panel Test Low Normal High Flag Reference Site Blastomyces AB <1:8 <1:8 titer QD Interpretive Criteria: <1:8 Antibody Not Detected > or = 1:8 Antibody Detected Although titers of 1:8 and greater are considered positive, confirmed serological diagnosis of blastomycosis by the CF test requires a four-fold or greater increase in titer between acute and convalescent specimens, and lack of corresponding titers to C. immitis and H. capsulatum. Specificity can only be demonstrated by immunodiffusion procedures. A negative CF test does not rule out the diagnosis of active blastomycosis, as less than 50% of sera from patients with proven blastomycosis are positive by this assay. This test was developed and its analytical performance characteristics have been determined by [employer] [place], [place]. It has not been cleared or approved by the U.S. Food and Drug Administration. This assay has been validated pursuant to the CLIA regulations and is used for clinical purposes. Blastomyces Imm Negative Negative QD Interpretive Criteria: Negative: Antibody not detected Positive: Antibody detected A positive result is diagnostic of active or recent blastomycosis and is found in approximately 80% of proven cases of blastomycosis. THIS TEST WAS PERFORMED AT: [employer] [id number] [place], [place] KAYLEY CHENG MD,PHD A&P Assessment and plan (1) Blastomycosis of central nervous system: Patient with HPI as noted above Reorted past h/o [employer] blastomycosis based on a positive CSF antiegn at outside facility (results N?/A for review directly, reviewed discharge summary from admission in May 2024). This admission was notable for MRSA Pneumonia, osteomyelitis/discitis and Influenza PNA with severe illness warranting an extended hospital stay, need for PEG/Trach and prolonged encephalopathy from which patient has now recovered. It appears CSF analysis was undertaken in view of prolonged encephalopathy and resulted positive for Blastomyces incidentally. Patient has been on treatment with Itraconazole between May to August 2024, then changed to voriconazole in August 2024 until November 2024. Last Blastomyces Ab less than 1:8, no prior available Overall patient has had 6 months of treatment for suspected blastomycosis. His symptoms of scrotal edema have resolved since discontinuing itraconazole- may have been related to CKD vs CHF vs possibly medication related. Overall he has complated 7mpnths of treatment. CXR has shown improving infiltrates consistently. Plan to discontinue Azole therapy at this point with close monitoring as outpatient to monitor for any relapse. F/up ID clinic in 3 months PDMP PDMP Reviewed: Not Reviewed Consult Attestations Medical Necessity Statement: per attending Coding Level of Care Code Acute Code for Chg Fwd Diagnoses Blastomycosis of central nervous system B40.89
[2024-11-26 17:17] LABS: Partial Thromboplastin Time 38.7 SECONDS (23.9-36.7)
[2024-11-26] MEDS: cefTRIAXone 1,000 mg SDV 1000 MG IVP (17:18)
[2024-11-26] MEDS: AZITHROMYCIN ADD-Vantage 500 MG in 0.9% NaCl ADD-Vantage 250 ML 250 MG IV (17:19)
[2024-11-26 23:05] LABS: Partial Thromboplastin Time 71.4 SECONDS (23.9-36.7)
[2024-11-26] MEDS: insulin glargine 100 units/1 mL 10 UNIT SUBCUT (23:21)
[2024-11-27] VITALS (18 sets, daily range): BP systolic 137–168; BP diastolic 67–112; PULSE 58–68; RESP 16–21; TEMP 36.4–36.8; O2SAT 93–98
[2024-11-27] MEDS: bumetanide 0.25 mg/mL SDV 4 mL 1 MG IVP ×2 (05:31→16:50)
[2024-11-27 05:58] LABS: Hematocrit 30.4 % (37-53); Hemoglobin 9.20 g/dL (11.27-16.99); Mean Corpuscular HGB Conc 30.3 g/dL (30-55); Mean Corpuscular Hemoglobin 28.3 pg (27-33); Mean Corpuscular Volume 93.5 fl (82-101); Nucleated Red Blood Cells % 0.2 %; Platelet Count 111 10^3/cmm (157-399); Red Blood Count 3.25 10^6/uL (3.85-5.65); White Blood Count 12.66 10^3/uL (3.29-11.43)
[2024-11-27 06:22] LABS: Partial Thromboplastin Time 124.2 SECONDS (23.9-36.7)
[2024-11-27 06:24] LABS: Procalcitonin 0.30 ng/mL (0-0.5)
[2024-11-27 06:37] LABS: Magnesium 2.2 mg/dL (1.7-2.3)
[2024-11-27 06:51] LABS: Alanine Aminotransferase 20 U/L (0-41); Albumin Level 3.0 g/dL (3.5-5.2); Alkaline Phosphatase 180 U/L (40-130); Aspartate Amino Transferase 27 U/L (0-40); Calcium 8.4 mg/dL (8.5-10.5); Carbon Dioxide 20 mmol/L (22-29); Creatinine Clr Calc Pharmacy 19.0675; Globulin 4.0 g/dL (1.3-4.6); Glucose 337 mg/dL (65-115); Total Protein 7.0 g/dL (6.6-8.7)
[2024-11-27 06:59] LABS: NT Pro B Type Natriuretic Pept 44874 pg/mL (0-125)
[2024-11-27 07:05] LABS: Anion Gap 22.8 (5-19); Chloride 96 mmol/L (98-107); Osmolality Calculated 316 mOsm/kg (285-295); Potassium 4.8 mmol/L (3.5-5.1); Sodium 134 mmol/L (136-145)
[2024-11-27 07:07] LABS: Blood Urea Nitrogen 82 mg/dL (6-20)
--- NOTE | 2024-11-27 08:07 | PM.PN ---
Subjective Subjective: seen and examined. weak, cp is improving. dec sob Medications: Reviewed: Yes Medication Review Details: Current Medications Acetaminophen (Acetaminophen 325 Mg Tablet) 650 mg PO Q6H PRN PRN Reason: Mild/Mod Pain Or Temp >/= 101 Albuterol/Ipratropium (Ipratropium-Albuterol 3 Ml Neb) 3 ml INHALATION QID.RESPIRATORY LEATHA Last Admin: 11/27/24 07:39 Dose: 3 ml Amlodipine Besylate (Amlodipine 5 Mg Tablet) 5 mg PO DAILY LEATHA Last Admin: 11/26/24 08:25 Dose: 5 mg Aspirin (Aspirin 81 Mg Ec Tablet) 81 mg PO DAILY LEATHA Last Admin: 11/26/24 08:24 Dose: 81 mg Atorvastatin Calcium (Atorvastatin 40 Mg Tablet) 40 mg PO BEDTIME LEATHA Last Admin: 11/26/24 22:25 Dose: 40 mg Budesonide (Budesonide 0.5 Mg/2 Ml Neb) 0.5 mg INHALATION BID.RESPIRATORY LEATHA Last Admin: 11/27/24 07:39 Dose: 0.5 mg Bumetanide (Bumetanide 0.25 Mg/Ml Sdv 4 Ml) 1 mg IVP Q12H LEATHA Last Admin: 11/27/24 05:31 Dose: 1 mg Carvedilol (Carvedilol 25 Mg Tablet) 25 mg PO BID LEATHA Last Admin: 11/26/24 17:18 Dose: 25 mg Ceftriaxone Sodium (Ceftriaxone 1,000 Mg Sdv) 1,000 mg IVP Q24H LEATHA; Protocol Last Admin: 11/26/24 17:18 Dose: 1,000 mg Doxazosin Mesylate (Doxazosin 4 Mg Tablet) 8 mg PO DAILY LEATHA Last Admin: 11/26/24 08:25 Dose: 8 mg Escitalopram Oxalate (Escitalopram 10 Mg Tablet) 5 mg PO DAILY LEATHA Last Admin: 11/26/24 08:25 Dose: 5 mg Gabapentin (Gabapentin 100 Mg Capsule) 100 mg PO TID LEATHA Last Admin: 11/26/24 22:25 Dose: 100 mg Glucagon (Glucagon 1 Mg/Ml Kit 1 Ml) 1 mg IM ONCE PRN; Protocol PRN Reason: Adult Acute Hypoglycemia Nursing Prot. Heparin Sodium (Porcine) (Heparin 5,000 Unit/Ml Inj 1 Ml) 0 unit IVP PRN PRN; Protocol PRN Reason: Heparin Weight Based Protocol -Subsequent Bolus Last Admin: 11/26/24 05:24 Dose: 4,900 unit Hydralazine HCl (Hydralazine 25 Mg Tablet) 75 mg PO TID [facility] Last Admin: 11/26/24 22:26 Dose: 75 mg Azithromycin 500 mg/ Sodium (Chloride) 250 mls @ 250 mls/hr IV Q24H [facility]; Protocol Last Infusion: 11/26/24 18:39 Dose: Infused Dextrose (D5w) 500 mls @ 0 mls/hr IV ONCE PRN; Protocol PRN Reason: Adult Acute Hypoglycemia Prot Dextrose (D10w) 125 mls @ 750 mls/hr IV PRN PRN; Protocol PRN Reason: Adult Acute Hypoglycemia Nursing Protocol Dextrose (D10w) 250 mls @ 1,000 mls/hr IV PRN PRN; Protocol PRN Reason: Adult Acute Hypoglycemia Nursing Protocol Ferric Sodium Gluconate 125 mg (/ Sodium Chloride) 110 mls @ 110 mls/hr IV Q24H [facility] Stop: 11/28/24 09:14 Last Admin: 11/26/24 12:15 Dose: Not Given Heparin Sodium/Sodium Chloride (Heparin Drip) 25,000 unit in 500 mls @ 0 mls/hr IV CONT LEATHA; Protocol Last Titration: 11/27/24 07:11 Dose: 13.9 unit/kg/hr, 27 mls/hr Insulin Glargine (Insulin Glargine 100 Units/1 Ml) 10 unit SUBCUT BEDTIME [facility] Last Admin: 11/26/24 23:21 Dose: 10 unit Insulin Human Lispro (Insulin Lispro 100 Unit/1 Ml) 0 unit SUBCUT TIDWM [facility]; Protocol Last Admin: 11/26/24 17:18 Dose: 10 unit Isosorbide Mononitrate (Isosorbide Mononitrate Er 30 Mg Tablet) 30 mg PO DAILY [facility] Last Admin: 11/26/24 08:25 Dose: 30 mg Morphine Sulfate (Morphine 4 Mg/Ml Sdv 1 Ml) 1 mg IVP Q4H PRN PRN Reason: SEVERE PAIN Last Admin: 11/26/24 22:26 Dose: 1 mg Naloxone HCl (Naloxone 0.4 Mg/Ml Sdv) 0.1 mg IVP Q2M PRN PRN Reason: OPIATERV Ondansetron HCl (Ondansetron 2 Mg/Ml Sdv 2 Ml) 4 mg IVP Q8H PRN PRN Reason: vomiting, or N/V if npo Pantoprazole Sodium (Pantoprazole Dr 40 Mg Tablet) 40 mg PO BID [facility] Last Admin: 11/26/24 17:20 Dose: 40 mg Prednisone (Prednisone 20 Mg Tablet) 40 mg PO DAILY [facility] Vitals/I&O/Wt Last Vital Signs Temp 98.3 F 11/27/24 04:00 Pulse 63 11/27/24 07:39 Resp 16 11/27/24 07:39 BP 155/81 11/27/24 04:00 Pulse Ox 97 11/27/24 07:39 O2 Del Method Nasal Cannula 11/27/24 07:39 O2 Flow Rate 1 11/27/24 07:39 11/26/24 11/27/24 11/27/24 22:59 06:59 14:59 Intake Total 1030 / 1943.95 401.7 / 2345.65 260.7 / 260.7 Output Total 2800 / 2800 0 / 2800 Balance -1770 / -856.05 401.7 / -454.35 260.7 / 260.7 Weight last 48 hrs Weight 99.291 kg Weight 98.5 kg Weight 96.116 kg Weight 96.6 kg Physical Exam Narrative: vital signs noted Patient is using NC O2 @ 2 L HEENT is normocephalic atraumatic. +[place] rt side Neck is supple. Lungs have much improved air movement bilaterally. Patient has an anterior chest wall permacath. Heart regular positive S1-S2. Abdomen is soft nontender positive bowel sounds. Extremities -the patient has bilateral trace leg edema. Neuro awake alert oriented x 3 Data 11/27/24 05:45 11/27/24 05:45 Micro: Microbiology 11/25/24 09:20 Gram Stain - Final Sputum - Expectorated Sputum Sputum Culture - Preliminary A&P Assessment and plan (1) ESRD (end stage renal disease): 54-year-old gentleman history of heart failure preserved EF, disseminated blastomycosis, cirrhosis, diabetes, COPD obstructive sleep apnea, had severe ascites and started dialysis in July 2024 then was taken off of dialysis and was restarted. 1. ESRD dialysis x 2. repeat HD today or tomorrow based on schedule of cath and nurses availability 2. Anemia hemoglobin has improved from August. Iron saturation of 22% ferritin 550 can use iron. await repeat SPEP and serum immunofixation. 3 Elevated troponin and BNP - cardiac eval in progress -d/c hydralazine. add losartan or entresto as per cardiology 4. Diabetes hemoglobin A1c improved in September to 6.7. 5. anemia- check iron studies Medications reviewed Patient seen and examined using A/V equipment with the aid of a nurse. Patient consented to telehealth and hemodialysis. Plan Shortness of breath. Evaluation as per cardiology and we will continue hemodialysis . PDMP PDMP Reviewed: Not Reviewed Attestations Medical Necessity Statement*: per cardiology and medicine Time Spent in Patient Care: 16 - 35 minutes (>than 50% of time spent in counselling and/or direct pt care on unit). Coding Level of Care Code Acute Code for Chg Fwd Diagnoses ESRD (end stage renal disease) N18.6
[2024-11-27 08:58] LABS: Ferritin 813 ng/mL (30-400); Iron 87 ug/dL (59-158); Total Iron Binding Capacity 131 mcg/dl; Unsaturated Iron Binding 44 ug/dL (112-347)
[2024-11-27] MEDS: heparin drip 25,000 UNIT/500 ML PREMIX 27 UNIT IV (10:27)
--- NOTE | 2024-11-27 10:42 | PM.PN ---
Subjective Subjective: Patient was seen this morning, currently alert oriented x 3, following all commands, denies any fevers, chills, does report shortness of breath although improving, no chest pain overnight, plans on cardiac catheterization unfortunately have been delayed, plans on cardiac catheterization potentially on Saturday or Saturday, patient was advised if he does have any chest pain to immediately let us know Vitals/I&O/Wt Last Vital Signs Temp 97.6 F 11/27/24 08:00 Pulse 62 11/27/24 08:00 Resp 21 H 11/27/24 08:00 BP 158/77 11/27/24 08:23 Pulse Ox 93 11/27/24 08:00 O2 Del Method Nasal Cannula 11/27/24 08:00 O2 Flow Rate 1 11/27/24 07:39 11/26/24 11/27/24 11/27/24 22:59 06:59 14:59 Intake Total 1030 / 1943.95 401.7 / 2345.65 391.75 / 391.75 Output Total 2800 / 2800 0 / 2800 Balance -1770 / -856.05 401.7 / -454.35 391.75 / 391.75 Weight last 48 hrs Weight 99.291 kg Weight 98.5 kg Weight 96.116 kg Weight 96.6 kg Physical Exam Const: COMMON NORMALS: no acute distress and patient oriented x3 Resp: COMMON NORMALS: normal respiratory effort, No retractions and No use of accessory muscles AUSCULTATION: crackles Cardio: COMMON NORMALS: regular rate, regular rhythm, S1 normal heart sound present and S2 normal heart sound present RATE: regular rate RHYTHM: regular rhythm HEART SOUNDS: S1 normal heart sound present and S2 normal heart sound present GI: COMMON NORMALS: Normal to inspection, nondistended, normoactive bowel sounds present and non-tender Extremity: NARRATIVE EXTREMITY EXAM: 1+ edema Neuro: COMMON NORMALS: patient oriented x3 Psych: COMMON NORMALS: mental status grossly normal Data 11/27/24 05:45 11/27/24 05:45 Micro: Microbiology 11/25/24 09:20 Gram Stain - Final Sputum - Expectorated Sputum Sputum Culture - Preliminary A&P Assessment and plan (1) Acute hypoxic respiratory failure: (2) CHF exacerbation: (3) COPD exacerbation: (4) Pneumonia: (5) Diabetes: (6) Liver cirrhosis: (7) CKD (chronic kidney disease): (8) ESRD (end stage renal disease): Plan Acute hypoxic respiratory failure - Multifactorial - COPD exacerbation - Pneumonia, concerns with productive cough - Diastolic CHF exacerbation, -1.7 L Plan - Solu-Medrol 125 followed by 40 mg IV every 8 hours, de-escalate to prednisone 40 mg daily - DuoNeb - Budesonide - Bumex 1 mg IV push every 12 hours - Status post 2 sessions of inpatient dialysis - Continue Rocephin, Zithromycin - Cultures, blood cultures - Monitor respiratory status closely - Full code - Heparin for DVT prophylaxis NSTEMI, did have complaints of chest pain, serial EKGs, short of ones, telemetry monitoring, heparin drip, aspirin, statin, cardiology consultation - Plan on coronary angiography on Saturday or Saturday End-stage renal disease on dialysis Fall, reported head trauma head CT, no acute findings Type 2 diabetes mellitus, moderate-dose sliding scale, Lantus increased to 10 units twice daily Plan on dialysis tomorrow, due to persistent hyperglycemia I will increase Lantus to 10 units twice daily, monitor blood sugars closely, monitor for chest pain, continue IV antibiotics, PDMP PDMP Reviewed: Last Reviewed 11/24/24 17:58 by Zion Gillis MD Attestations Medical Necessity Statement*: Patient requires hospitalization for acute hypoxic respiratory failure secondary COPD, pneumonia, diastolic CHF, NSTEMI Diagnoses Acute hypoxic respiratory failure J96.01 Acute on chronic diastolic congestive heart failure I50.33 Heart failure type: diastolic COPD exacerbation J44.1 Pneumonia due to infectious organism, unspecified laterality, unspecified part of lung J18.9 Pneumonia type: due to unspecified organism Laterality: unspecified laterality Lung location: unspecified part of lung Type 2 diabetes mellitus with other circulatory complication, with long-term current use of insulin E11.59; Z79.4 Diabetes mellitus type: type 2 Diabetes mellitus residential insulin use: with manager long term care use Diabetes mellitus complication status: with circulatory complication Diabetes mellitus complication detail: with other circulatory complications Hepatic cirrhosis, unspecified hepatic cirrhosis type, unspecified whether ascites present K74.60 Hepatic cirrhosis type: unspecified hepatic cirrhosis Ascites presence: unspecified Stage 4 chronic kidney disease N18.4 Chronic kidney disease stage: stage 4 (GFR 15-29) ESRD (end stage renal disease) N18.6
[2024-11-27] MEDS: insulin glargine 100 units/1 mL 10 UNIT SUBCUT ×2 (11:52→22:07)
[2024-11-27] MEDS: ferric gluconate 125 MG in sodium chloride 0.9% (100 ml) 100 ML 110 MG IV (11:52)
--- NOTE | 2024-11-27 12:30 | PC.NURSE ---
to dialysis via bed at 1210
[2024-11-27 13:09] LABS: Partial Thromboplastin Time 120.6 SECONDS (23.9-36.7)
--- NOTE | 2024-11-27 15:51 | PC.NURSE ---
return from dialysis via bed.report received.2.5 liters removed.pt tolerated procedure well
[2024-11-27] MEDS: cefTRIAXone 1,000 mg SDV 1000 MG IVP (16:46)
--- NOTE | 2024-11-27 17:23 | PM.PN ---
Subjective Subjective: Denies any complaint of chest pain Vitals/I&O/Wt Last Vital Signs Temp 98.0 F 11/27/24 16:18 Pulse 58 L 11/27/24 16:18 Resp 18 11/27/24 16:18 BP 137/75 11/27/24 16:18 Pulse Ox 97 11/27/24 16:18 O2 Del Method Room Air 11/27/24 16:18 O2 Flow Rate 1 11/27/24 07:39 11/27/24 11/27/24 11/27/24 06:59 14:59 22:59 Intake Total 401.7 / 2345.65 470.95 / 470.95 300 / 770.95 Output Total 0 / 2800 2800 / 2800 Balance 401.7 / -454.35 470.95 / 470.95 -2500 / -2029.05 Weight last 48 hrs Weight 225 lb 12.054 oz Weight 218 lb 14.4 oz Weight 217 lb 2.485 oz Weight 211 lb 14.4 oz Physical Exam Const: OTHER: GENERAL: Patient is alert, awake and oriented x3. HEART: Regular S1 and S2. No murmur, rub or gallop. LUNGS: Clear to auscultate bilaterally. CENTRAL NERVOUS SYSTEM: Grossly nonfocal. EXTREMITIES: Lower extremities with out edema bilaterally. Data 11/27/24 05:45 11/27/24 05:45 Micro: Microbiology 11/25/24 09:20 Gram Stain - Final Sputum - Expectorated Sputum Sputum Culture - Final A&P Assessment and plan (1) CHF exacerbation: (2) Acute hypoxic respiratory failure: (3) ESRD (end stage renal disease): (4) Liver cirrhosis: (5) NSTEMI (non-ST elevated myocardial infarction): Plan Continue dialysis Continue IV Lasix Patient appeared to be euvolemic Possible left heart cath early next week since Epilepsy Physician was not available due to technical fault and problem and patient appeared to be stable though patient was given choice to be transferred to their hospital but would not like to get transferred and would like to perform left heart catheter. Continue aspirin statin beta-jossie and optimal blood pressure control. Continue heparin PDMP PDMP Reviewed: Not Reviewed Attestations Medical Necessity Statement*: As per medicine Coding Level of Care Code Acute Code for [facility] Fwd Diagnoses Acute on chronic diastolic congestive heart failure I50.33 Heart failure type: diastolic Acute hypoxic respiratory failure J96.01 ESRD (end stage renal disease) N18.6 Hepatic cirrhosis, unspecified hepatic cirrhosis type, unspecified whether ascites present K74.60 Hepatic cirrhosis type: unspecified hepatic cirrhosis Ascites presence: unspecified NSTEMI (non-ST elevated myocardial infarction) I21.4
[2024-11-27] MEDS: morphine 4 mg/mL SDV 1 mL 1 MG IVP (19:56)
[2024-11-27 20:43] LABS: Partial Thromboplastin Time 96.1 SECONDS (23.9-36.7)
[2024-11-28] VITALS (14 sets, daily range): BP systolic 133–167; BP diastolic 54–84; PULSE 53–79; RESP 14–27; TEMP 36.4–36.7; O2SAT 95–98
[2024-11-28 04:19] LABS: Hematocrit 30.9 % (37-53); Hemoglobin 9.40 g/dL (11.27-16.99); Mean Corpuscular HGB Conc 30.4 g/dL (30-55); Mean Corpuscular Hemoglobin 28.3 pg (27-33); Mean Corpuscular Volume 93.1 fl (82-101); Nucleated Red Blood Cells % 0.4 %; Platelet Count 95 10^3/cmm (157-399); Red Blood Count 3.32 10^6/uL (3.85-5.65); White Blood Count 12.28 10^3/uL (3.29-11.43)
[2024-11-28 04:29] LABS: Partial Thromboplastin Time 45.6 SECONDS (23.9-36.7)
[2024-11-28 04:38] LABS: Alanine Aminotransferase 20 U/L (0-41); Albumin Level 2.5 g/dL (3.5-5.2); Alkaline Phosphatase 179 U/L (40-130); Anion Gap 20.4 (5-19); Aspartate Amino Transferase 24 U/L (0-40); Blood Urea Nitrogen 62 mg/dL (6-20); Calcium 8.3 mg/dL (8.5-10.5); Carbon Dioxide 22 mmol/L (22-29); Chloride 95 mmol/L (98-107); Creatinine Clr Calc Pharmacy 24.2014; Globulin 4.4 g/dL (1.3-4.6); Glucose 418 mg/dL (65-115); Magnesium 2.2 mg/dL (1.7-2.3); Osmolality Calculated 311 mOsm/kg (285-295); Potassium 4.4 mmol/L (3.5-5.1); Sodium 133 mmol/L (136-145); Total Protein 6.9 g/dL (6.6-8.7)
[2024-11-28 04:46] LABS: Procalcitonin 0.30 ng/mL (0-0.5)
[2024-11-28] MEDS: heparin 5,000 unit/mL INJ 1 mL IVP (04:50)
[2024-11-28 05:08] LABS: NT Pro B Type Natriuretic Pept 34538 pg/mL (0-125)
[2024-11-28] MEDS: bumetanide 0.25 mg/mL SDV 4 mL 1 MG IVP (05:34)
[2024-11-28] MEDS: morphine 4 mg/mL SDV 1 mL 1 MG IVP ×3 (05:45→20:45)
[2024-11-28] MEDS: ferric gluconate 125 MG in sodium chloride 0.9% (100 ml) 100 ML 110 MG IV (09:00)
[2024-11-28] MEDS: insulin glargine 100 units/1 mL 15 UNIT SUBCUT ×2 (09:00→20:48)
[2024-11-28 09:59] LABS: ALPHA 1 GLOBULIN 0.4 g/dL (0.2-0.3); ALPHA 2 GLOBULIN 0.9 g/dL (0.5-0.9); BETA 1 GLOBULIN 0.3 g/dL (0.4-0.6); BETA 2 GLOBULIN 0.5 g/dL (0.2-0.5)
[2024-11-28 11:25] LABS: Partial Thromboplastin Time 65.4 SECONDS (23.9-36.7)
--- NOTE | 2024-11-28 12:07 | PC.NURSE ---
Heparin drip bag is has volume.
--- NOTE | 2024-11-28 12:38 | P.PN_ITS ---
Vitals/I&O/Wt Last Vital Signs Temp 98.0 F 11/28/24 12:00 Pulse 66 11/28/24 12:00 Resp 22 H 11/28/24 12:00 BP 154/78 11/28/24 12:00 Pulse Ox 95 11/28/24 12:00 O2 Del Method Room Air 11/28/24 09:24 O2 Flow Rate 1 11/27/24 07:39 11/27/24 11/28/24 11/28/24 22:59 06:59 14:59 Intake Total 785.05 / 1256.00 221.25 / 1477.25 464.467 / 464.467 Output Total 2800 / 2800 350 / 3150 Balance -2014.95 / -1544.00 -128.75 / -1672.75 464.467 / 464.467 Weight last 48 hrs Weight 102.427 kg Weight 102.4 kg Weight 99.291 kg Weight 98.5 kg Physical Exam 2 Const: COMMON NORMALS: no acute distress and patient oriented x3 Resp: COMMON NORMALS: normal respiratory effort, No retractions and No use of accessory muscles AUSCULTATION: crackles Cardio: COMMON NORMALS: regular rate, regular rhythm, S1 normal heart sound present and S2 normal heart sound present RATE: regular rate RHYTHM: r egular rhythm HEART SOUNDS: S1 normal heart sound present and S2 normal heart sound present GI: COMMON NORMALS: Normal to inspection, nondistended, normoactive bowel sounds present and non-tender Extremity: COMMON NORMALS: no pedal edema Neuro: COMMON NORMALS: patient oriented x3 Psych: COMMON NORMALS: mental status grossly normal Data 11/28/24 03:30 11/28/24 03:30 Micro: Microbiology 11/25/24 09:20 Gram Stain - Final Sputum - Expectorated Sputum Sputum Culture - Final A&P Assessment and plan (1) Acute hypoxic respiratory failure: (2) CHF exacerbation: (3) COPD exacerbation: (4) Pneumonia: (5) Diabetes: (6) Liver cirrhosis: (7) CKD (chronic kidney disease): (8) ESRD (end stage renal disease): Plan Acute hypoxic respiratory failure - Multifactorial - COPD exacerbation - Pneumonia, concerns with productive cough - Diastolic CHF exacerbation, -1.7 L Plan - Solu-Medrol 125 followed by 40 mg IV every 8 hours, de-escalate to prednisone 40 mg daily - DuoNeb - Budesonide - Bumex 1 mg IV push every 12 hours - Status post 3 sessions of inpatient dialysis, -3.3 L - Continue Rocephin, Zithromycin - Cultures, blood cultures - Monitor respiratory status closely - Full code - Heparin for DVT prophylaxis NSTEMI, did have complaints of chest pain, serial EKGs, short of ones, telemetry monitoring, heparin drip, aspirin, statin, cardiology consultation - Plan on coronary angiography on Saturday or Saturday End-stage renal disease on dialysis Fall, reported head trauma head CT, no acute findings Type 2 diabetes mellitus, moderate-dose sliding scale, has hyperglycemia with prednisone increase Lantus to 15 units twice daily, high-dose sliding scale Thrombocytopenia, no active bleeding, monitor Plan for today continue heparin drip, monitor for chest pain, blood sugar management, continue Bumex PDMP PDMP Reviewed: Last Reviewed 11/24/24 17:58 by Zion Gillis MD Attestations 2 Medical Necessity Statement*: Patient requires hospitalization for hypoxic respiratory failure, NSTEMI Diagnoses Acute hypoxic respiratory failure J96.01 Acute on chronic diastolic congestive heart failure I50.33 Heart failure type: diastolic COPD exacerbation J44.1 Pneumonia due to infectious organism, unspecified laterality, unspecified part of lung J18.9 Pneumonia type: due to unspecified organism Laterality: unspecified laterality Lung location: unspecified part of lung Type 2 diabetes mellitus with other circulatory complication, with long-term current use of insulin E11.59; Z79.4 Diabetes mellitus type: type 2 Diabetes mellitus 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
[2024-11-28] MEDS: heparin drip 25,000 UNIT/500 ML PREMIX 17 UNIT IV (13:34)
--- NOTE | 2024-11-28 14:09 | PC.RESP ---
This therapist busy in er at time of treatment, unable to deliver medications in a timely manner.
--- NOTE | 2024-11-28 15:53 | P.PN_ITS ---
Subjective 2 Subjective: Patient denies any chest pain had dialysis yesterday Medications: Reviewed: Yes Medication Review Details: Current Medications Acetaminophen (Acetaminophen 325 Mg Tablet) 650 mg PO Q6H PRN PRN Reason: Mild/Mod Pain Or Temp >/= 101 Albuterol/Ipratropium (Ipratropium-Albuterol 3 Ml Neb) 3 ml INHALATION QID.RESPIRATORY LEATHA Last Admin: 11/27/24 07:39 Dose: 3 ml Amlodipine Besylate (Amlodipine 5 Mg Tablet) 5 mg PO DAILY LEATHA Last Admin: 11/26/24 08:25 Dose: 5 mg Aspirin (Aspirin 81 Mg Ec Tablet) 81 mg PO DAILY LEATHA Last Admin: 11/26/24 08:24 Dose: 81 mg Atorvastatin Calcium (Atorvastatin 40 Mg Tablet) 40 mg PO BEDTIME LEATHA Last Admin: 11/26/24 22:25 Dose: 40 mg Budesonide (Budesonide 0.5 Mg/2 Ml Neb) 0.5 mg INHALATION BID.RESPIRATORY LEATHA Last Admin: 11/27/24 07:39 Dose: 0.5 mg Bumetanide (Bumetanide 0.25 Mg/Ml Sdv 4 Ml) 1 mg IVP Q12H LEATHA Last Admin: 11/27/24 05:31 Dose: 1 mg Carvedilol (Carvedilol 25 Mg Tablet) 25 mg PO BID LEATHA Last Admin: 11/26/24 17:18 Dose: 25 mg Ceftriaxone Sodium (Ceftriaxone 1,000 Mg Sdv) 1,000 mg IVP Q24H LEATHA; Protocol Last Admin: 11/26/24 17:18 Dose: 1,000 mg Doxazosin Mesylate (Doxazosin 4 Mg Tablet) 8 mg PO DAILY LEATHA Last Admin: 11/26/24 08:25 Dose: 8 mg Escitalopram Oxalate (Escitalopram 10 Mg Tablet) 5 mg PO DAILY LEATHA Last Admin: 11/26/24 08:25 Dose: 5 mg Gabapentin (Gabapentin 100 Mg Capsule) 100 mg PO TID LEATHA Last Admin: 11/26/24 22:25 Dose: 100 mg Glucagon (Glucagon 1 Mg/Ml Kit 1 Ml) 1 mg IM ONCE PRN; Protocol PRN Reason: Adult Acute Hypoglycemia Nursing Prot. Heparin Sodium (Porcine) (Heparin 5,000 Unit/Ml Inj 1 Ml) 0 unit IVP PRN PRN; Protocol PRN Reason: Heparin Weight Based Protocol -Subsequent Bolus Last Admin: 11/26/24 05:24 Dose: 4,900 unit Hydralazine HCl (Hydralazine 25 Mg Tablet) 75 mg PO TID [facility] Last Admin: 11/26/24 22:26 Dose: 75 mg Azithromycin 500 mg/ Sodium (Chloride) 250 mls @ 250 mls/hr IV Q24H [facility]; Protocol Last Infusion: 11/26/24 18:39 Dose: Infused Dextrose (D5w) 500 mls @ 0 mls/hr IV ONCE PRN; Protocol PRN Reason: Adult Acute Hypoglycemia Prot Dextrose (D10w) 125 mls @ 750 mls/hr IV PRN PRN; Protocol PRN Reason: Adult Acute Hypoglycemia Nursing Protocol Dextrose (D10w) 250 mls @ 1,000 mls/hr IV PRN PRN; Protocol PRN Reason: Adult Acute Hypoglycemia Nursing Protocol Ferric Sodium Gluconate 125 mg (/ Sodium Chloride) 110 mls @ 110 mls/hr IV Q24H [facility] Stop: 11/28/24 09:14 Last Admin: 11/26/24 12:15 Dose: Not Given Heparin Sodium/Sodium Chloride (Heparin Drip) 25,000 unit in 500 mls @ 0 mls/hr IV CONT LEATHA; Protocol Last Titration: 11/27/24 07:11 Dose: 13.9 unit/kg/hr, 27 mls/hr Insulin Glargine (Insulin Glargine 100 Units/1 Ml) 10 unit SUBCUT BEDTIME [facility] Last Admin: 11/26/24 23:21 Dose: 10 unit Insulin Human Lispro (Insulin Lispro 100 Unit/1 Ml) 0 unit SUBCUT TIDWM [facility]; Protocol Last Admin: 11/26/24 17:18 Dose: 10 unit Isosorbide Mononitrate (Isosorbide Mononitrate Er 30 Mg Tablet) 30 mg PO DAILY [facility] Last Admin: 11/26/24 08:25 Dose: 30 mg Morphine Sulfate (Morphine 4 Mg/Ml Sdv 1 Ml) 1 mg IVP Q4H PRN PRN Reason: SEVERE PAIN Last Admin: 11/26/24 22:26 Dose: 1 mg Naloxone HCl (Naloxone 0.4 Mg/Ml Sdv) 0.1 mg IVP Q2M PRN PRN Reason: OPIATERV Ondansetron HCl (Ondansetron 2 Mg/Ml Sdv 2 Ml) 4 mg IVP Q8H PRN PRN Reason: vomiting, or N/V if npo Pantoprazole Sodium (Pantoprazole Dr 40 Mg Tablet) 40 mg PO BID [facility] Last Admin: 11/26/24 17:20 Dose: 40 mg Prednisone (Prednisone 20 Mg Tablet) 40 mg PO DAILY [facility] Vitals/I&O/Wt Last Vital Signs Temp 98.0 F 11/28/24 15:37 Pulse 53 L 11/28/24 15:37 Resp 14 11/28/24 15:37 BP 141/79 11/28/24 15:37 Pulse Ox 97 11/28/24 15:37 O2 Del Method Room Air 11/28/24 15:20 O2 Flow Rate 1 11/27/24 07:39 11/28/24 11/28/24 11/28/24 06:59 14:59 22:59 Intake Total 221.25 / 1477.25 854.500 / 854.500 Output Total 350 / 3150 300 / 300 Balance -128.75 / -1672.75 554.500 / 554.500 Weight last 48 hrs Weight 225 lb 13 oz Weight 225 lb 12.054 oz Weight 218 lb 14.4 oz Weight 217 lb 2.485 oz Physical Exam 2 Const: OTHER: GENERAL: Patient is alert, awake and oriented x3. HEART: Regular S1 and S2. No murmur, rub or gallop. LUNGS: Clear to auscultate bilaterally. CENTRAL NERVOUS SYSTEM: Grossly nonfocal. EXTREMITIES: Lower extremities with out edema bilaterally. 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 Continue aspirin statin beta-jossie and optimal blood pressure control. Continue heparin On today's visit dated 11/28/2024, will continue plan as above PDMP PDMP Reviewed: Not Reviewed Attestations 2 Medical Necessity Statement*: Require continuation of hospitalization for above defined care Coding Level of Care Code Acute Code for [facility] Fwd Diagnoses Acute on chronic diastolic congestive heart failure I50.33 Heart failure type: diastolic Acute hypoxic respiratory failure J96.01 ESRD (end stage renal disease) N18.6 Hepatic cirrhosis, unspecified hepatic cirrhosis type, unspecified whether ascites present K74.60 Hepatic cirrhosis type: unspecified hepatic cirrhosis Ascites presence: unspecified NSTEMI (non-ST elevated myocardial infarction) I21.4
--- NOTE | 2024-11-28 17:02 | P.PN_ITS ---
Subjective 2 Subjective: no new complaints Medications: Reviewed: Yes Vitals/I&O/Wt Last Vital Signs Temp 98.0 F 11/28/24 15:37 Pulse 53 L 11/28/24 15:37 Resp 14 11/28/24 15:37 BP 141/79 11/28/24 15:37 Pulse Ox 97 11/28/24 15:37 O2 Del Method Room Air 11/28/24 15:20 O2 Flow Rate 1 11/27/24 07:39 11/28/24 11/28/24 11/28/24 06:59 14:59 22:59 Intake Total 221.25 / 1477.25 854.500 / 854.500 Output Total 350 / 3150 300 / 300 Balance -128.75 / -1672.75 554.500 / 554.500 Weight last 48 hrs Weight 102.427 kg Weight 102.4 kg Weight 99.291 kg Physical Exam 2 Narrative: vital signs noted Patient is using NC O2 @ 2 L HEENT is normocephalic atraumatic. +[place] rt side Neck is supple. Lungs have much improved air movement bilaterally. Patient has an anterior chest wall permacath. Heart regular positive S1-S2. Abdomen is soft nontender positive bowel sounds. Extremities -the patient has bilateral trace leg edema. Neuro awake alert oriented x 3 Data 11/28/24 03:30 11/28/24 03:30 A&P Assessment and plan (1) ESRD (end stage renal disease): 54-year-old gentleman history of heart failure preserved EF, disseminated blastomycosis, cirrhosis, diabetes, COPD obstructive sleep apnea, had severe ascites and started dialysis in July 2024 then was taken off of dialysis and was restarted. 1. ESRD ; HD on saturday 2. Anemia hemoglobin has improved from August. Iron saturation of 22% ferritin 550 can use iron. await repeat SPEP and serum immunofixation. 3 Elevated troponin and BNP - cardiac eval in progress, awaitng [facility] -d/c hydralazine. add losartan or entresto as per cardiology 4. Diabetes hemoglobin A1c improved in September to 6.7. 5. anemia- check iron studies Medications reviewed Patient seen and examined using A/V equipment with the aid of a nurse. Patient consented to telehealth and hemodialysis. Plan Shortness of breath. Evaluation as per cardiology and we will continue hemodialysis . PDMP PDMP Reviewed: Not Reviewed Attestations 2 Medical Necessity Statement*: PER MEDICINE Coding Level of Care Code Acute Code for Chg Fwd Diagnoses ESRD (end stage renal disease) N18.6
[2024-11-28] MEDS: cefTRIAXone 1,000 mg SDV 1000 MG IVP (17:22)
[2024-11-28 17:57] LABS: Partial Thromboplastin Time 51.0 SECONDS (23.9-36.7)
[2024-11-28 23:53] LABS: Partial Thromboplastin Time 56.0 SECONDS (23.9-36.7)
[2024-11-29] VITALS (13 sets, daily range): BP systolic 137–163; BP diastolic 65–95; PULSE 63–73; RESP 15–22; TEMP 36.3–36.6; O2SAT 95–99
[2024-11-29] MEDS: morphine 4 mg/mL SDV 1 mL 1 MG IVP ×3 (04:01→21:01)
[2024-11-29 05:48] LABS: Hematocrit 31.5 % (37-53); Hemoglobin 9.80 g/dL (11.27-16.99); Mean Corpuscular HGB Conc 31.1 g/dL (30-55); Mean Corpuscular Hemoglobin 28.7 pg (27-33); Mean Corpuscular Volume 92.1 fl (82-101); Nucleated Red Blood Cells % 0.2 %; Platelet Count 117 10^3/cmm (157-399); Red Blood Count 3.42 10^6/uL (3.85-5.65); White Blood Count 12.31 10^3/uL (3.29-11.43)
[2024-11-29 06:47] LABS: Partial Thromboplastin Time 60.0 SECONDS (23.9-36.7)
[2024-11-29 06:57] LABS: NT Pro B Type Natriuretic Pept 26818 pg/mL (0-125); Procalcitonin 0.21 ng/mL (0-0.5)
[2024-11-29 07:08] LABS: Alanine Aminotransferase 18 U/L (0-41); Albumin Level 3.0 g/dL (3.5-5.2); Alkaline Phosphatase 161 U/L (40-130); Anion Gap 18.6 (5-19); Aspartate Amino Transferase 23 U/L (0-40); Blood Urea Nitrogen 79 mg/dL (6-20); Calcium 8.3 mg/dL (8.5-10.5); Carbon Dioxide 22 mmol/L (22-29); Chloride 97 mmol/L (98-107); Globulin 3.9 g/dL (1.3-4.6); Glucose 325 mg/dL (65-115); Magnesium 2.2 mg/dL (1.7-2.3); Osmolality Calculated 312 mOsm/kg (285-295); Potassium 4.6 mmol/L (3.5-5.1); Sodium 133 mmol/L (136-145); Total Protein 6.9 g/dL (6.6-8.7)
[2024-11-29 07:19] LABS: Creatinine Clr Calc Pharmacy 23.0105
[2024-11-29] MEDS: insulin glargine 100 units/1 mL 15 UNIT SUBCUT ×2 (07:58→21:09)
--- NOTE | 2024-11-29 08:50 | PC.NURSE ---
Heparin drip bag is has volume.
--- NOTE | 2024-11-29 11:12 | P.PN_ITS ---
Subjective 2 Subjective: no new c/o Medications: Reviewed: Yes Vitals/I&O/Wt Last Vital Signs Temp 97.7 F 11/29/24 08:00 Pulse 64 11/29/24 09:20 Resp 16 11/29/24 09:20 BP 163/95 11/29/24 08:00 Pulse Ox 98 11/29/24 09:20 O2 Del Method Room Air 11/29/24 09:20 O2 Flow Rate 1 11/27/24 07:39 11/28/24 11/29/24 11/29/24 22:59 06:59 14:59 Intake Total 436.217 / 1290.717 240 / 1530.717 386 / 386 Output Total 150 / 450 500 / 950 575 / 575 Balance 286.217 / 840.717 -260 / 580.717 -189 / -189 Weight last 48 hrs Weight 102.058 kg Weight 102.427 kg Weight 102.4 kg Physical Exam 2 Narrative: vital signs noted Patient is using NC O2 @ 2 L HEENT is normocephalic atraumatic. +[place] rt side Neck is supple. Lungs have much improved air movement bilaterally. Patient has an anterior chest wall permacath. Heart regular positive S1-S2. Abdomen is soft nontender positive bowel sounds. Extremities -the patient has bilateral trace leg edema. Neuro awake alert oriented x 3 Data 11/29/24 05:39 11/29/24 06:21 A&P Assessment and plan (1) ESRD (end stage renal disease): 54-year-old gentleman history of heart failure preserved EF, disseminated blastomycosis, cirrhosis, diabetes, COPD obstructive sleep apnea, had severe ascites and started dialysis in July 2024 then was taken off of dialysis and was restarted. 1. ESRD ; HD on saturday, next HD saturday 2. Anemia hemoglobin has improved from August. Iron saturation of 22% ferritin 550 can use iron. await repeat SPEP and serum immunofixation. 3 Elevated troponin and BNP - cardiac eval in progress, awaitng [facility] -d/c hydralazine. add losartan or entresto as per cardiology 4. Diabetes hemoglobin A1c improved in September to 6.7. 5. anemia- check iron studies Medications reviewed Patient seen and examined using A/V equipment with the aid of a nurse. Patient consented to telehealth and hemodialysis. Plan Shortness of breath. Evaluation as per cardiology and we will continue hemodialysis . PDMP PDMP Reviewed: Not Reviewed Attestations 2 Medical Necessity Statement*: per medicine Coding Level of Care Code Acute Code for Chg Fwd Diagnoses ESRD (end stage renal disease) N18.6
[2024-11-29 12:54] LABS: Partial Thromboplastin Time 57.8 SECONDS (23.9-36.7)
--- NOTE | 2024-11-29 13:13 | PC.NURSE ---
Dr Mckee ordered to stop patients heparin drip and start lovenox [address] Gillis is updated.
--- NOTE | 2024-11-29 14:52 | P.PN_ITS ---
Subjective 2 Subjective: Patient was seen this morning, currently alert oriented x 3, following all commands, he is shortness of breath is improving, no chest pain overnight, Vitals/I&O/Wt Last Vital Signs Temp 97.6 F 11/29/24 12:00 Pulse 71 11/29/24 14:00 Resp 18 11/29/24 12:00 BP 146/76 11/29/24 12:00 Pulse Ox 98 11/29/24 12:00 O2 Del Method Room Air 11/29/24 12:00 O2 Flow Rate 1 11/27/24 07:39 11/28/24 11/29/24 11/29/24 22:59 06:59 14:59 Intake Total 436.217 / 1290.717 240 / 1530.717 707.65 / 707.65 Output Total 150 / 450 500 / 950 875 / 875 Balance 286.217 / 840.717 -260 / 580.717 -167.35 / -167.35 Weight last 48 hrs Weight 102.058 kg Weight 102.427 kg Weight 102.4 kg Physical Exam 2 Const: COMMON NORMALS: no acute distress and patient oriented x3 Resp: COMMON NORMALS: normal respiratory effort, No retractions, No use of accessory muscles and clear to auscultation bilaterally AUSCULTATION: clear to auscultation bilaterally Cardio: COMMON NORMALS: regular rate, regular rhythm, S1 normal heart sound present and S2 normal heart sound present RATE: regular rate RHYTHM: r egular rhythm HEART SOUNDS: S1 normal heart sound present and S2 normal heart sound present GI: COMMON NORMALS: Normal to inspection, nondistended, normoactive bowel sounds present and non-tender Extremity: COMMON NORMALS: no pedal edema Neuro: COMMON NORMALS: patient oriented x3 Psych: COMMON NORMALS: mental status grossly normal Data 11/29/24 05:39 11/29/24 06:21 A&P Assessment and plan (1) Acute hypoxic respiratory failure: (2) CHF exacerbation: (3) COPD exacerbation: (4) Pneumonia: (5) Diabetes: (6) Liver cirrhosis: (7) CKD (chronic kidney disease): (8) ESRD (end stage renal disease): Plan Acute hypoxic respiratory failure - Multifactorial - COPD exacerbation - Pneumonia, concerns with productive cough - Diastolic CHF exacerbation, -3 L Plan - prednisone 40 mg daily - DuoNeb - Budesonide - Bumex 1 mg p.o. daily - Status post 3 sessions of inpatient dialysis, -3 L - Continue Rocephin, Zithromycin - Cultures, blood cultures - Monitor respiratory status closely - Full code - Heparin for DVT prophylaxis NSTEMI, did have complaints of chest pain, serial EKGs, short of ones, telemetry monitoring, heparin drip, aspirin, statin, cardiology consultation - Plan on coronary angiography on Saturday or Saturday End-stage renal disease on dialysis Fall, reported head trauma head CT, no acute findings Type 2 diabetes mellitus, moderate-dose sliding scale, has hyperglycemia with prednisone increase Lantus to 15 units twice daily, high-dose sliding scale Thrombocytopenia, no active bleeding, monitor Plan for today continue heparin drip, monitor for chest pain, blood sugar management, continue Bumex, IV antibiotics PDMP PDMP Reviewed: Last Reviewed 11/24/24 17:58 by Zion Gillis MD Attestations 2 Medical Necessity Statement*: Patient requires hospitalization for acute hypoxic respiratory failure secondary pneumonia, COPD, CHF Diagnoses Acute hypoxic respiratory failure J96.01 Acute on chronic diastolic congestive heart failure I50.33 Heart failure type: diastolic COPD exacerbation J44.1 Pneumonia due to infectious organism, unspecified laterality, unspecified part of lung J18.9 Pneumonia type: due to unspecified organism Laterality: unspecified laterality Lung location: unspecified part of lung Type 2 diabetes mellitus with other circulatory complication, with long-term current use of insulin E11.59; Z79.4 Diabetes mellitus type: type 2 Diabetes mellitus 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
--- NOTE | 2024-11-29 15:02 | P.PN_ITS ---
Subjective 2 Subjective: Denies chest pain overall doing better Medications: Reviewed: Yes Medication Review Details: Current Medications Acetaminophen (Acetaminophen 325 Mg Tablet) 650 mg PO Q6H PRN PRN Reason: Mild/Mod Pain Or Temp >/= 101 Albuterol/Ipratropium (Ipratropium-Albuterol 3 Ml Neb) 3 ml INHALATION QID.RESPIRATORY LEATHA Last Admin: 11/27/24 07:39 Dose: 3 ml Amlodipine Besylate (Amlodipine 5 Mg Tablet) 5 mg PO DAILY LEATHA Last Admin: 11/26/24 08:25 Dose: 5 mg Aspirin (Aspirin 81 Mg Ec Tablet) 81 mg PO DAILY LEATHA Last Admin: 11/26/24 08:24 Dose: 81 mg Atorvastatin Calcium (Atorvastatin 40 Mg Tablet) 40 mg PO BEDTIME LEATHA Last Admin: 11/26/24 22:25 Dose: 40 mg Budesonide (Budesonide 0.5 Mg/2 Ml Neb) 0.5 mg INHALATION BID.RESPIRATORY LEATHA Last Admin: 11/27/24 07:39 Dose: 0.5 mg Bumetanide (Bumetanide 0.25 Mg/Ml Sdv 4 Ml) 1 mg IVP Q12H LEATHA Last Admin: 11/27/24 05:31 Dose: 1 mg Carvedilol (Carvedilol 25 Mg Tablet) 25 mg PO BID LEATHA Last Admin: 11/26/24 17:18 Dose: 25 mg Ceftriaxone Sodium (Ceftriaxone 1,000 Mg Sdv) 1,000 mg IVP Q24H LEATHA; Protocol Last Admin: 11/26/24 17:18 Dose: 1,000 mg Doxazosin Mesylate (Doxazosin 4 Mg Tablet) 8 mg PO DAILY LEATHA Last Admin: 11/26/24 08:25 Dose: 8 mg Escitalopram Oxalate (Escitalopram 10 Mg Tablet) 5 mg PO DAILY LEATHA Last Admin: 11/26/24 08:25 Dose: 5 mg Gabapentin (Gabapentin 100 Mg Capsule) 100 mg PO TID LEATHA Last Admin: 11/26/24 22:25 Dose: 100 mg Glucagon (Glucagon 1 Mg/Ml Kit 1 Ml) 1 mg IM ONCE PRN; Protocol PRN Reason: Adult Acute Hypoglycemia Nursing Prot. Heparin Sodium (Porcine) (Heparin 5,000 Unit/Ml Inj 1 Ml) 0 unit IVP PRN PRN; Protocol PRN Reason: Heparin Weight Based Protocol -Subsequent Bolus Last Admin: 11/26/24 05:24 Dose: 4,900 unit Hydralazine HCl (Hydralazine 25 Mg Tablet) 75 mg PO TID [facility] Last Admin: 11/26/24 22:26 Dose: 75 mg Azithromycin 500 mg/ Sodium (Chloride) 250 mls @ 250 mls/hr IV Q24H [facility]; Protocol Last Infusion: 11/26/24 18:39 Dose: Infused Dextrose (D5w) 500 mls @ 0 mls/hr IV ONCE PRN; Protocol PRN Reason: Adult Acute Hypoglycemia Prot Dextrose (D10w) 125 mls @ 750 mls/hr IV PRN PRN; Protocol PRN Reason: Adult Acute Hypoglycemia Nursing Protocol Dextrose (D10w) 250 mls @ 1,000 mls/hr IV PRN PRN; Protocol PRN Reason: Adult Acute Hypoglycemia Nursing Protocol Ferric Sodium Gluconate 125 mg (/ Sodium Chloride) 110 mls @ 110 mls/hr IV Q24H [facility] Stop: 11/28/24 09:14 Last Admin: 11/26/24 12:15 Dose: Not Given Heparin Sodium/Sodium Chloride (Heparin Drip) 25,000 unit in 500 mls @ 0 mls/hr IV CONT LEATHA; Protocol Last Titration: 11/27/24 07:11 Dose: 13.9 unit/kg/hr, 27 mls/hr Insulin Glargine (Insulin Glargine 100 Units/1 Ml) 10 unit SUBCUT BEDTIME [facility] Last Admin: 11/26/24 23:21 Dose: 10 unit Insulin Human Lispro (Insulin Lispro 100 Unit/1 Ml) 0 unit SUBCUT TIDWM [facility]; Protocol Last Admin: 11/26/24 17:18 Dose: 10 unit Isosorbide Mononitrate (Isosorbide Mononitrate Er 30 Mg Tablet) 30 mg PO DAILY [facility] Last Admin: 11/26/24 08:25 Dose: 30 mg Morphine Sulfate (Morphine 4 Mg/Ml Sdv 1 Ml) 1 mg IVP Q4H PRN PRN Reason: SEVERE PAIN Last Admin: 11/26/24 22:26 Dose: 1 mg Naloxone HCl (Naloxone 0.4 Mg/Ml Sdv) 0.1 mg IVP Q2M PRN PRN Reason: OPIATERV Ondansetron HCl (Ondansetron 2 Mg/Ml Sdv 2 Ml) 4 mg IVP Q8H PRN PRN Reason: vomiting, or N/V if npo Pantoprazole Sodium (Pantoprazole Dr 40 Mg Tablet) 40 mg PO BID LEATHA Last Admin: 11/26/24 17:20 Dose: 40 mg Prednisone (Prednisone 20 Mg Tablet) 40 mg PO DAILY [facility] Vitals/I&O/Wt Last Vital Signs Temp 97.6 F 11/29/24 12:00 Pulse 71 11/29/24 14:00 Resp 18 11/29/24 12:00 BP 146/76 11/29/24 12:00 Pulse Ox 98 11/29/24 12:00 O2 Del Method Room Air 11/29/24 12:00 O2 Flow Rate 1 11/27/24 07:39 11/29/24 11/29/24 11/29/24 06:59 14:59 22:59 Intake Total 240 / 1530.717 707.65 / 707.65 Output Total 500 / 950 875 / 875 Balance -260 / 580.717 -167.35 / -167.35 Weight last 48 hrs Weight 225 lb Weight 225 lb 13 oz Weight 225 lb 12.054 oz Physical Exam 2 Const: OTHER: GENERAL: Patient is alert, awake and oriented x3. HEART: Regular S1 and S2. No murmur, rub or gallop. LUNGS: Clear to auscultate bilaterally. CENTRAL NERVOUS SYSTEM: Grossly nonfocal. EXTREMITIES: Lower extremities with out edema bilaterally. Data 11/29/24 05:39 11/29/24 06:21 A&P Assessment and plan (1) CHF exacerbation: (2) Acute hypoxic respiratory failure: (3) ESRD (end stage renal disease): (4) Liver cirrhosis: (5) NSTEMI (non-ST elevated myocardial infarction): Plan Continue dialysis Continue IV Lasix Patient appeared to be euvolemic Possible left heart cath early next week since Neurourologist was not available due to technical fault and problem and patient appeared to be stable though patient was given choice to be transferred to their hospital but would not like to get transferred and would like to perform left heart catheter. Continue aspirin statin beta-jossie and optimal blood pressure control. Continue heparin On today's visit dated 11/28/2024, will continue plan as above On today's visit dated 11/29/2024 patient denies any complaint he is stable status post dialysis feeling better. Tomorrow we will proceed with left heart cath since Neurourologist is and running. Will continue current management. PDMP PDMP Reviewed: Not Reviewed Attestations 2 Medical Necessity Statement*: Patient require continuation hospitalization for above defined care Coding Level of Care Code Acute Code for Chg Fwd Diagnoses Acute on chronic diastolic congestive heart failure I50.33 Heart failure type: diastolic Acute hypoxic respiratory failure J96.01 ESRD (end stage renal disease) N18.6 Hepatic cirrhosis, unspecified hepatic cirrhosis type, unspecified whether ascites present K74.60 Hepatic cirrhosis type: unspecified hepatic cirrhosis Ascites presence: unspecified NSTEMI (non-ST elevated myocardial infarction) I21.4
[2024-11-30] VITALS (16 sets, daily range): BP systolic 150–174; BP diastolic 76–93; PULSE 62–74; RESP 12–20; TEMP 36.4–37; O2SAT 92–98
[2024-11-30] MEDS: morphine 4 mg/mL SDV 1 mL 1 MG IVP ×3 (01:00→20:14)
[2024-11-30 04:05] LABS: Hematocrit 31.1 % (37-53); Hemoglobin 9.40 g/dL (11.27-16.99); Mean Corpuscular HGB Conc 30.2 g/dL (30-55); Mean Corpuscular Hemoglobin 28.1 pg (27-33); Mean Corpuscular Volume 93.1 fl (82-101); Platelet Count 94 10^3/cmm (157-399); Red Blood Count 3.34 10^6/uL (3.85-5.65); White Blood Count 12.19 10^3/uL (3.29-11.43)
[2024-11-30 04:14] LABS: NT Pro B Type Natriuretic Pept 17272 pg/mL (0-125); Procalcitonin 0.15 ng/mL (0-0.5)
[2024-11-30 04:18] LABS: Alanine Aminotransferase 17 U/L (0-41); Albumin Level 3.0 g/dL (3.5-5.2); Alkaline Phosphatase 143 U/L (40-130); Anion Gap 20.9 (5-19); Aspartate Amino Transferase 20 U/L (0-40); Calcium 8.1 mg/dL (8.5-10.5); Carbon Dioxide 19 mmol/L (22-29); Chloride 102 mmol/L (98-107); Creatinine Clr Calc Pharmacy 25.0003; Globulin 3.1 g/dL (1.3-4.6); Glucose 370 mg/dL (65-115); Magnesium 2.3 mg/dL (1.7-2.3); Osmolality Calculated 327 mOsm/kg (285-295); Potassium 4.9 mmol/L (3.5-5.1); Sodium 137 mmol/L (136-145); Total Protein 6.1 g/dL (6.6-8.7)
[2024-11-30 04:22] LABS: Blood Urea Nitrogen 91 mg/dL (6-20)
[2024-11-30 04:39] LABS: Slide Review Slide Review Perform
[2024-11-30 04:41] LABS: Absolute Segmented Neutrophil 9.1 10/cmm (1.6-7.1); Atypical Lymphs 2.0 % (0-5); Band Neutrophils Absolute 0.1 10^3/cmm (0.0-1.2); Total Cells Counted 100 (0-100)
[2024-11-30] MEDS: ondansetron 2 mg/ML SDV 2 mL 4 MG IVP (06:27)
--- NOTE | 2024-11-30 09:40 | W.PM.OPSUD ---
Surgery/Procedure H&P Update DATE OF PROCEDURE: November 30, 2024 DATE H&P PERFORMED: 11/25/24 H&P UPDATE INFORMATION: I have reviewed H&P completed within last 30 days, I have examined patient prior to procedure and No changes to prior documentation PREOP DIAGNOSIS: Non-ST elevation, CHF PRIMARY INDICATION FOR PROCEDURE: Indication recurrent heart failure Non-ST elevation AL Angina equivalent PATIENT REASSESSED PRIOR TO SEDATION, WITH NO CHANGE NOTED: Yes PHYSICAL EXAM: alert, oriented x 3, clear to auscultation bilaterally, regular rate & rhythm and operative site marked AIRWAY EVAL/ANESTHESIA PLAN: ASA II, Risks, benefits & alternatives of sedation and/or procedure discussed and Patient agrees to continue as planned ADDITIONAL INFORMATION: All risk-benefit and alternative for the procedure has been explained to the patient. Patient understands 2% risk of stroke major bleed, patient restarted 6% risk of major and minor bleeding infection hematoma pseudoaneurysm contrast-induced nephropathy leading to temporary permanent dialysis patient is already on hemodialysis. Patient understood and agreed to it
--- NOTE | 2024-11-30 09:55 | P.PN_ITS ---
<Statement entered by Hernan Mckee MD - 12/01/24 21:24> Patient was evaluated and cared for in conjunction with an advanced practice practitioner. I personally examined the patient and reviewed the chart and all pertinent data including imaging, telemetry, and laboratory results. I discussed the patient in detail with the advanced practice practitioner. Please see their note for complete H&P testing result and agreed upon plan of care for the patient. Subjective 2 Subjective: Plan for coronary angiogram today. No chest pain or worsening shortness of breath overnight. Blood pressure elevated. Fluid balance -700, -3900 cumulative for this admission. Vitals/I&O/Wt Last Vital Signs Temp 98.0 F 11/30/24 07:50 Pulse 69 11/30/24 07:50 Resp 12 11/30/24 07:50 BP 172/91 11/30/24 07:50 Pulse Ox 92 11/30/24 07:50 O2 Del Method Room Air 11/30/24 07:50 O2 Flow Rate 1 11/27/24 07:39 11/29/24 11/30/24 11/30/24 22:59 06:59 14:59 Intake Total 518.133 / 1465.783 240 / 1465.783 Output Total 700 / 2175 600 / 2175 Balance -181.867 / -709.217 -360 / -709.217 Weight last 48 hrs Weight 229 lb Weight 225 lb Physical Exam 2 Const: COMMON NORMALS: no acute distress and patient oriented x3 GENERAL APPEARANCE: cooperative and comfortable ORIENTATION/CONSCIOUSNESS: Yes awake, Yes oriented to person, Yes oriented to place and Yes oriented to time Chest: COMMONS NORMALS: normal inspection of the chest and normal palpation of entire chest wall CHEST: Yes Symmetrical chest wall rise Resp: COMMON NORMALS: normal respiratory effort, No retractions, No use of accessory muscles and clear to auscultation bilaterally EFFORT & INSPECTION: Yes symmetric chest movement AUSCULTATION: clear to auscultation bilaterally Cardio: COMMON NORMALS: regular rate, regular rhythm, S1 normal heart sound present, S2 normal heart sound present, No gallops present (Cardio), No clicks present (Cardio), No murmurs present (Cardio) and No rub (Cardio) RATE: r egular rate RHYTHM: regular rhythm HEART SOUNDS: S1 normal heart sound present and S2 normal heart sound present PERIPHERAL PULSES: radial pulses present Extremity: COMMON NORMALS: no pedal edema Neuro: COMMON NORMALS: patient oriented x3 and moves all extremities S ENSORIUM/ORIENTATION: Yes oriented to person, Yes oriented to place and Yes oriented to time Data 11/30/24 02:23 11/30/24 02:23 Micro: Microbiology 11/24/24 17:33 Blood Culture - Final Blood NO GROWTH AFTER 5 DAYS 11/24/24 17:35 Blood Culture - Final Blood NO GROWTH AFTER 5 DAYS A&P Assessment and plan (1) NSTEMI (non-ST elevated myocardial infarction): (2) CHF exacerbation: (3) Hypertension: (4) Diabetes: (5) ESRD (end stage renal disease): (6) Liver cirrhosis: Plan Coronary angiogram today, further plan will be devised based on results of cath. No chest pain currently. 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
--- NOTE | 2024-11-30 11:00 | PM.PROC ---
Procedure Note: Date of procedure: 11/30/24 Pre-procedure diagnosis: [id number]-IW-[id number] M Procedure: Indication: Non-ST Elevation myocardial infarction, acute on chronic systolic heart failure Left heart cath was performed: It revealed separate ostium of LAD and left circumflex, LAD has proximal high-grade 80% stenosis Mid to distal high-grade stenosis of the circumflex and OM 1, groove circumflex is moderate-sized in caliber moderate vessel which has a high-grade ostial stenosis RCA is chronically occluded in the midsegment with [id number] collateral PCI to mid to mid circumflex to OM1, PCI to distal obtuse marginal 1 PCI to proximal LAD With balloon angioplasty to jailed groove circumflex, moderate lesion remains in the groove circumflex as a result of balloon angioplasty however since it is a groove circumflex we left it for medical management and treated obtuse marginal and proximal LAD with excellent angiographic result Plan continue dual antiplatelet therapy Continue optimize medical management Coding Level of Care Code Acute Code for Josesito Fwsachi
--- NOTE | 2024-11-30 11:50 | PC.NURSE ---
Patient briefly came back to room post cath procedure at 11:02. then was taken off unit to dialysis at approx 11:10.
--- NOTE | 2024-11-30 11:54 | PM.PN ---
Subjective Subjective: no new c/o Medications: Reviewed: Yes Vitals/I&O/Wt Last Vital Signs Temp 98.1 F 11/30/24 11:26 Pulse 74 11/30/24 11:26 Resp 20 H 11/30/24 11:26 BP 174/89 11/30/24 11:26 Pulse Ox 98 11/30/24 11:15 O2 Del Method Room Air 11/30/24 07:50 O2 Flow Rate 1 11/27/24 07:39 11/29/24 11/30/24 11/30/24 22:59 06:59 14:59 Intake Total 518.133 / 1225.783 240 / 1465.783 Output Total 700 / 1575 600 / 2175 Balance -181.867 / -349.217 -360 / -709.217 Weight last 48 hrs Weight 103.873 kg Weight 102.058 kg Physical Exam Narrative: vital signs noted Patient is using NC O2 @ 2 L HEENT is normocephalic atraumatic. +[place] rt side Neck is supple. Lungs have much improved air movement bilaterally. Patient has an anterior chest wall permacath. Heart regular positive S1-S2. Abdomen is soft nontender positive bowel sounds. Extremities -the patient has bilateral trace leg edema. Neuro awake alert oriented x 3 Data 11/30/24 02:23 11/30/24 02:23 Micro: Microbiology 11/24/24 17:33 Blood Culture - Final Blood NO GROWTH AFTER 5 DAYS 11/24/24 17:35 Blood Culture - Final Blood NO GROWTH AFTER 5 DAYS A&P Assessment and plan (1) ESRD (end stage renal disease): 54-year-old gentleman history of heart failure preserved EF, disseminated blastomycosis, cirrhosis, diabetes, COPD obstructive sleep apnea, had severe ascites and started dialysis in July 2024 then was taken off of dialysis and was restarted. 1. ESRD ; HD today 2. Anemia hemoglobin has improved from August. Iron saturation of 22% ferritin 550 can use iron. await repeat SPEP and serum immunofixation. 3 Elevated troponin and BNP - cardiac eval in progress, awaitng [facility] -d/c hydralazine. add losartan or entresto as per cardiology 4. Diabetes hemoglobin A1c improved in September to 6.7. 5. anemia- check iron studies Medications reviewed Patient seen and examined using A/V equipment with the aid of a nurse. Patient consented to telehealth and hemodialysis. Plan Shortness of breath. Evaluation as per cardiology and we will continue hemodialysis . PDMP PDMP Reviewed: Not Reviewed Attestations Medical Necessity Statement*: per bernarda Coding Level of Care Code Acute Code for Chg Fwd Diagnoses ESRD (end stage renal disease) N18.6
[2024-11-30 12:03] LABS: KAPPA LIGHT CHAIN, FREE, SERUM 216.9 mg/L (3.3-19.4); KAPPA/LAMBDA LIGHT CHAINS FREE 0.70 (0.26-1.65); LAMBDA LIGHT CHAIN, FREE, SERU 308.2 mg/L (5.7-26.3)
--- NOTE | 2024-11-30 13:40 | PM.PN ---
Subjective Subjective: Patient was seen this morning, no acute needs overnight, sitting up to side of bed, no shortness of breath, awaiting for coronary angiogram this morning Vitals/I&O/Wt Last Vital Signs Temp 98.1 F 11/30/24 11:26 Pulse 74 11/30/24 11:26 Resp 20 H 11/30/24 11:26 BP 174/89 11/30/24 11:26 Pulse Ox 98 11/30/24 11:15 O2 Del Method Room Air 11/30/24 07:50 O2 Flow Rate 1 11/27/24 07:39 11/29/24 11/30/24 11/30/24 22:59 06:59 14:59 Intake Total 518.133 / 1225.783 240 / 1465.783 Output Total 700 / 1575 600 / 2175 Balance -181.867 / -349.217 -360 / -709.217 Weight last 48 hrs Weight 103.873 kg Weight 102.058 kg Physical Exam Const: COMMON NORMALS: no acute distress and patient oriented x3 Resp: COMMON NORMALS: normal respiratory effort, No retractions, No use of accessory muscles and clear to auscultation bilaterally AUSCULTATION: clear to auscultation bilaterally Cardio: COMMON NORMALS: regular rate, regular rhythm, S1 normal heart sound present and S2 normal heart sound present RATE: regular rate RHYTHM: regular rhythm HEART SOUNDS: S1 normal heart sound present and S2 normal heart sound present GI: COMMON NORMALS: Normal to inspection, nondistended, normoactive bowel sounds present and non-tender Extremity: COMMON NORMALS: no pedal edema Neuro: COMMON NORMALS: patient oriented x3 Psych: COMMON NORMALS: mental status grossly normal Data 11/30/24 02:23 11/30/24 02:23 Micro: Microbiology 11/24/24 17:33 Blood Culture - Final Blood NO GROWTH AFTER 5 DAYS 11/24/24 17:35 Blood Culture - Final Blood NO GROWTH AFTER 5 DAYS A&P Assessment and plan (1) Acute hypoxic respiratory failure: (2) CHF exacerbation: (3) COPD exacerbation: (4) Pneumonia: (5) Diabetes: (6) Liver cirrhosis: (7) CKD (chronic kidney disease): (8) ESRD (end stage renal disease): Plan Acute hypoxic respiratory failure - Multifactorial - COPD exacerbation - Pneumonia, concerns with productive cough - Diastolic CHF exacerbation, -3.9L Plan - prednisone 40 mg daily - DuoNeb - Budesonide - Bumex 1 mg p.o. daily - Status post 3 sessions of inpatient dialysis, -3 L - Continue Zithromycin - Cultures, blood cultures - Monitor respiratory status closely - Full code - Heparin for DVT prophylaxis NSTEMI, did have complaints of chest pain, serial EKGs, short of ones, telemetry monitoring, heparin drip, aspirin, statin, cardiology consultation - Plan on coronary angiography on today End-stage renal disease on dialysis Fall, reported head trauma head CT, no acute findings Type 2 diabetes mellitus, moderate-dose sliding scale, has hyperglycemia with prednisone increase Lantus to 15 units twice daily, high-dose sliding scale Thrombocytopenia, no active bleeding, monitor Plan for today c planning cardiac catheterization today PDMP PDMP Reviewed: Last Reviewed 11/24/24 17:58 by Zion Gillis MD Attestations Medical Necessity Statement*: Patient requires hospitalization for NSTEMI proceeding with cardiac cath Diagnoses Acute hypoxic respiratory failure J96.01 Acute on chronic diastolic congestive heart failure I50.33 Heart failure type: diastolic COPD exacerbation J44.1 Pneumonia due to infectious organism, unspecified laterality, unspecified part of lung J18.9 Pneumonia type: due to unspecified organism Laterality: unspecified laterality Lung location: unspecified part of lung Type 2 diabetes mellitus with other circulatory complication, with long-term current use of insulin E11.59; Z79.4 Diabetes mellitus type: type 2 Diabetes mellitus 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
--- NOTE | 2024-11-30 15:30 | ECG_ITS ---
[facility]: 2024-11-30 Pat Name: Guido Whalen Department: Room: 107 Gender: Male Fueler: : [id number] Requested By: Zion Gillis Order Number: [id number] New MD: Raul Sánchez M.D. Measurements Intervals [place] Rate: 64 P: 30 OH: 137 QRS: 5 QRSD: 111 T: -17 QT: 433 QTc: 449 Interpretive Statements SINUS RHYTHM MODERATE INTRAVENTRICULAR CONDUCTION DELAY [110+ ms QRS DURATION] NONSPECIFIC ST & T-WAVE ABNORMALITY Compared to ECG 11/24/2024 20:28:55 Intraventricular conduction delay now present T-wave abnormality now present Electronically Signed On 12-01-2024 08:18:42 CDT by Raul Sánchez M.D. [email or web address]
[2024-11-30] MEDS: guaiFENesin-dextromethorphan UDC 10 mL 5 ML PO (15:53)
[2024-11-30 16:25] LABS: Hematocrit 33.7 % (37-53); Hemoglobin 10.30 g/dL (11.27-16.99); Mean Corpuscular HGB Conc 30.6 g/dL (30-55); Mean Corpuscular Hemoglobin 28.5 pg (27-33); Mean Corpuscular Volume 93.1 fl (82-101); Nucleated Red Blood Cells % 0.3 %; Platelet Count 88 10^3/cmm (157-399); Red Blood Count 3.62 10^6/uL (3.85-5.65); White Blood Count 11.75 10^3/uL (3.29-11.43)
[2024-11-30 16:39] LABS: INR 1.07 (0.8-1.2); Prothrombin Time 14.60 SECONDS (12.1-14.9)
[2024-11-30 16:40] LABS: Partial Thromboplastin Time 54.5 SECONDS (23.9-36.7); Slide Review Slide Review Perform
--- NOTE | 2024-11-30 17:03 | XRR_ITS ---
PROCEDURE INFORMATION: Exam: XR Chest Exam date and time: 11/30/2024 5:11 PM Age: 54 years old Clinical indication: Coughing up blood; Additional info: Hemoptysis TECHNIQUE: Imaging protocol: Radiologic exam of the chest. Views: 1 view. COMPARISON: CT angio chest PE protcl [id number] 11/24/2024 6:41 PM FINDINGS: Tubes, catheters and devices: A right-sided tunneled central venous dialysis catheter is in good position. Lungs: Unremarkable. No consolidation or mass. Pleural spaces: Unremarkable. No pleural effusion. No pneumothorax. Heart/Mediastinum: Unremarkable. No cardiomegaly. Bones/joints: Unremarkable. XR/XR chest 1V portable [id number] IMPRESSION: No acute findings.
--- NOTE | 2024-11-30 17:15 | ECG_ITS ---
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 Measurements Intervals [place] Rate: 70 P: 36 MO: 136 QRS: 8 QRSD: 109 T: -7 QT: 417 QTc: 451 Interpretive Statements SINUS RHYTHM NONSPECIFIC T-WAVE ABNORMALITY Compared to ECG 11/30/2024 15:30:24 Intraventricular conduction delay no longer present T-wave abnormality still present Electronically Signed On 12-01-2024 08:34:04 CDT by Raul Sánchez M.D. [id number] [id number]
--- NOTE | 2024-11-30 17:26 | CTR_ITS ---
PROCEDURE INFORMATION: Exam: CTA Chest With Contrast Exam date and time: 11/30/2024 9:19 PM Age: 54 years old Clinical indication: Other: Hemoptysis TECHNIQUE: Imaging protocol: Computed tomographic angiography of the chest with contrast. Exam focused on the arteries. 3D rendering (Not supervised by radiologist): MIP and/or 3D reconstructed images were created by the technologist. Radiation optimization: All CT scans at this facility use at least one of these dose optimization techniques: automated exposure control; mA and/or kV adjustment per patient size (includes targeted exams where dose is matched to clinical indication); or iterative reconstruction. Contrast material: OMNIPAQUE 350; Contrast volume: 100 ml; Contrast route: INTRAVENOUS (IV); COMPARISON: CT angio chest PE protcl [id number] 11/24/2024 6:41 PM RADIATION DOSE METRICS: Total DLP (mGy-cm): 480.82 FINDINGS: Tubes, catheters and devices: A right-sided tunneled central venous dialysis catheter is in good position. Pulmonary arteries: Normal. No pulmonary emboli. Aorta: Unremarkable. No aortic aneurysm. No aortic dissection. Lungs: Both lungs demonstrate hazy diffuse pulmonary edema. No mass or dense consolidation noted. Mild atelectasis involves both lung bases. Pleural spaces: Unremarkable. No pneumothorax. No pleural effusion. Heart: Mild cardiomegaly is noted. Lymph nodes: Unremarkable. No enlarged lymph nodes. Intraperitoneal space: Upper abdominal images demonstrate mild ascites along with splenomegaly. Bones/joints: Unremarkable. No acute fracture. Soft tissues: Unremarkable. CT/CT angio chest PE protcl [id number] IMPRESSION: 1. Mild CHF 2. Ascites with splenomegaly
[2024-11-30 19:23] LABS: Troponin(5th) Baseline 383 ng/L (0-15)
[2024-11-30] MEDS: sucralfate 1 gm/10 mL Oral Liq UDC PO (20:05)
[2024-11-30] MEDS: guaiFENesin-codeine UDC 10 mL 5 ML PO (20:06)
[2024-11-30] MEDS: insulin glargine 100 units/1 mL 15 UNIT SUBCUT (20:50)
[2024-11-30] MEDS: iohexol 350 mg/mL 500 mL Btl (per mL) IV (21:22)
[2024-11-30 21:42] LABS: Troponin 5 2HR 394.9 ng/L (0-15); Troponin 5 2HR Delta 11.9 ABS# (0-10)
--- NOTE | 2024-11-30 22:19 | PC.NURSE ---
2 hour trop his two hour trop came back at 394.4 with a delta of 11.4 Dr Lee said lets see what 6 hours and inform cardiology. Dr Mckee was informed, he ordered 2mg of morphine Q4hrs prn, and stated that trops are elevated post angiogram.
[2024-12-01] VITALS (36 sets, daily range): BP systolic 126–175; BP diastolic 67–89; PULSE 57–76; RESP 0–24; TEMP 36.1–36.9; O2SAT 93–97
[2024-12-01 01:00] LABS: Hematocrit 32.5 % (37-53); Hemoglobin 9.80 g/dL (11.27-16.99); Mean Corpuscular HGB Conc 30.2 g/dL (30-55); Mean Corpuscular Hemoglobin 28.9 pg (27-33); Mean Corpuscular Volume 95.9 fl (82-101); Nucleated Red Blood Cells % 0.3 %; Platelet Count 91 10^3/cmm (157-399); Red Blood Count 3.39 10^6/uL (3.85-5.65); White Blood Count 9.83 10^3/uL (3.29-11.43)
[2024-12-01 01:20] LABS: Blood Urea Nitrogen 61 mg/dL (6-20); Calcium 8.0 mg/dL (8.5-10.5); Carbon Dioxide 21 mmol/L (22-29); Chloride 98 mmol/L (98-107); Creatinine Clr Calc Pharmacy 36.8878; Glucose 453 mg/dL (65-115); Osmolality Calculated 311 mOsm/kg (285-295); Sodium 132 mmol/L (136-145)
[2024-12-01 01:41] LABS: Anion Gap 18.7 (5-19); Potassium 5.7 mmol/L (3.5-5.1)
[2024-12-01 01:42] LABS: Troponin 5 6HR 395.6 ng/L (0-15); Troponin 5 6HR Delta 12.6 ng/L (0-12)
[2024-12-01 01:53] LABS: Slide Review Slide Review Perform
[2024-12-01] MEDS: sucralfate 1 gm/10 mL Oral Liq UDC PO ×4 (01:53→17:26)
[2024-12-01] MEDS: guaiFENesin-codeine UDC 10 mL 5 ML PO ×3 (01:53→15:26)
[2024-12-01] MEDS: morphine 4 mg/mL SDV 1 mL 2 MG IVP ×3 (05:59→23:37)
[2024-12-01] MEDS: pantoprazole 40 mg SDV IVP ×2 (06:01→17:19)
[2024-12-01] MEDS: insulin glargine 100 units/1 mL 20 UNIT SUBCUT ×2 (08:57→20:19)
[2024-12-01] MEDS: HYDROcodone-acetaminophen 5-325 mg Tablet 1 TAB PO (09:52)
--- NOTE | 2024-12-01 10:23 | P.PN_ITS ---
<Statement entered by Hernan Mckee MD - 12/01/24 20:27> Patient was evaluated and cared for in conjunction with an advanced practice practitioner. I personally examined the patient and reviewed the chart and all pertinent data including imaging, telemetry, and laboratory results. I discussed the patient in detail with the advanced practice practitioner. Please see their note for complete H&P testing result and agreed upon plan of care for the patient. Patient continues to have chest pain since last night off-and-on basis now it is becoming more consistent, twelve-lead EKG did not show any significant changes however there was elevated cardiac marker troponin to high 300. We decided to take patient to the Door Glass Installer. Groove circumflex which was angioplastied and jailed was treated with single drug-eluting stent this time as follows GENERAL: Patient is alert, awake and oriented x3. HEART: Regular S1 and S2. No murmur, rub or gallop. LUNGS: Clear to auscultate bilaterally. CENTRAL NERVOUS SYSTEM: Grossly nonfocal. EXTREMITIES: Lower extremities with out edema bilaterally. Ischemic cardiomyopathy Non-ST elevation Chronic CKD on hemodialysis Recent stent placement yesterday to proximal LAD and mid circumflex Today patient was taken back to the Door Glass Installer for continuous chest pain, result as follows RCA was not engaged Separate ostia without left main LAD has luminal irregularities with patent previously placed proximal stent Separate ostia of the circumflex with patent previously placed mid and distal obtuse marginal stent Groomed circumflex as high-grade 90% stenosis with sluggish flow it is a culprit vessel, yesterday it was balloon angioplastied PCI to ostial groove circumflex with 2.75 x 15 mm drug-eluting stent Matthew postdilated with 3.0 x 12 mm noncompliant balloon with excellent angiographic result Plan: Bedrest for 4 hours since right common femoral was Angio-Seal Subjective 2 Subjective: Underwent LHC yesterday. He has had some sharp chest pain overnight, worsening this morning. No EKG changes. Troponin series yesterday: 383->394->395. Previous troponin trend on 11/24/24: 889->871->800. BNP yesterday 17,272, down from 26,818 the day prior. Potassium 5.7 today, BUN 61, creatinine 2.6. He underwent dialysis yesterday post cath. Vitals/I&O/Wt Last Vital Signs Temp 97.8 F 12/01/24 08:00 Pulse 76 12/01/24 08:00 Resp 19 H 12/01/24 08:00 BP 166/87 12/01/24 08:49 Pulse Ox 96 12/01/24 08:00 O2 Del Method Room Air 12/01/24 08:00 O2 Flow Rate 1 11/27/24 07:39 11/30/24 12/01/24 12/01/24 22:59 06:59 14:59 Intake Total 1260 / 1860 600 / 1860 Output Total 3700 / 5050 1350 / 5050 200 / 200 Balance -2440 / -3190 -750 / -3190 -200 / -200 Weight last 48 hrs Weight 221 lb Weight 221 lb 9.033 oz Weight 229 lb Physical Exam 2 Const: COMMON NORMALS: no acute distress and patient oriented x3 GENERAL APPEARANCE: cooperative and comfortable ORIENTATION/CONSCIOUSNESS: Yes awake, Yes oriented to person, Yes oriented to place and Yes oriented to time Chest: COMMONS NORMALS: normal inspection of the chest and normal palpation of entire chest wall CHEST: Yes Symmetrical chest wall rise Resp: COMMON NORMALS: normal respiratory effort, No retractions, No use of accessory muscles and clear to auscultation bilaterally EFFORT & INSPECTION: Yes symmetric chest movement AUSCULTATION: clear to auscultation bilaterally Cardio: COMMON NORMALS: regular rate, regular rhythm, S1 normal heart sound present, S2 normal heart sound present, No gallops present (Cardio), No clicks present (Cardio), No murmurs present (Cardio) and No rub (Cardio) RATE: r egular rate RHYTHM: regular rhythm HEART SOUNDS: S1 normal heart sound present and S2 normal heart sound present PERIPHERAL PULSES: radial pulses present Extremity: COMMON NORMALS: no pedal edema Neuro: COMMON NORMALS: patient oriented x3 and moves all extremities S ENSORIUM/ORIENTATION: Yes oriented to person, Yes oriented to place and Yes oriented to time Data 12/01/24 00:46 12/01/24 00:46 A&P Assessment and plan 1. NSTEMI (non-ST elevated myocardial infarction): 2. CHF exacerbation: 3. Hypertension: 4. Diabetes: 5. ESRD (end stage renal disease): 6. Liver cirrhosis: Plan: PCI performed yesterday during coronary angiogram. Chest pain felt to be related to intervention and should improve. Troponin series is flat, no EKG changes. CTA negative for pulmonary embolism. Will reevaluate later on today. Continue carvedilol, doxazosin, aspirin, statin, amlodipine, Imdur, losartan, Bumex, Plavix. Will obtain limited echo to rule out pericarditis. PDMP PDMP Reviewed: Not Reviewed Attestations 2 Medical Necessity Statement*: per hospitalist Coding Level of Care Code Acute Code for Chg Fwd Diagnoses NSTEMI (non-ST elevated myocardial infarction) I21.4 CHF exacerbation I50.9 Hypertension I10 Diabetes E11.9 ESRD (end stage renal disease) N18.6 Liver cirrhosis K74.60
--- NOTE | 2024-12-01 10:56 | USCV_ITS ---
Guido Whalen Age: 54 Gender: M : 1970 Exam Date: 12/01/2024 12:18 Ordering Phys: Wen Pabon Technologist: Exam [facility] [facility] [place] Indication: post cath BP: 171 / 89 HR: Rhythm: Sinus Technical Quality: Adequate MEASUREMENTS (Male / Female) Normal Values 2D ECHO LV Diastolic Diameter PLAX 4.8 cm 4.2 - 5.9 / 3.9 - 5.3 cm IVS Diastolic Thickness 0.9 cm 0.6 - 1.0 / 0.6 - 0.9 cm IVS Systolic Thickness 1.5 cm LVPW Diastolic Thickness 1.3 cm 0.6 - 1.0 / 0.6 - 0.9 cm LVPW Systolic Thickness 1.9 cm LVOT Diameter 2.0 cm LV Ejection Fraction 2D Teich 59.3 % LV Ejection Fraction MOD 4C 60.4 % LV Ejection Fraction MOD 2C 31.2 % LV Ejection Fraction 2C AL 31.9 % LA Diameter 3.6 cm RA Systolic Volume 4C AL 54.6 ml RA Systolic Volume 4C MOD 53.1 ml Aorta at Sinotubular Diameter 2.8 cm M-MODE LA Ao Ratio MM 1.4 AV Cusp Separation MM 2.6 cm FINDINGS Left Ventricle Normal left ventricular size and systolic function, EF 50% (visual). Mild concentric left-ventricular hypertrophy. Slightly dyskinetic basal inferior wall segment. Right Ventricle Possibly normal size and ejection fraction Right Atrium The right atrium is normal in size. Left Atrium The left atrium is normal in size. Mitral Valve Mild mitral annular calcification. Aortic Valve Mild calcification in the aortic annulus Tricuspid Valve No gross abnormalities noted Pulmonic Valve Pulmonic valve not well visualized. Pericardium Normal pericardium without effusion. Aorta Normal aortic annulus size. IVC Inferior vena cava not visualized. CONCLUSIONS Normal left ventricular size and systolic function, EF 50% (visual). Mild concentric left-ventricular hypertrophy. Slightly dyskinetic basal inferior wall segment. Mild calcification in the aortic annulus. Mild mitral annular calcification. There is no pericardial effusion. There are no intracardiac masses. Possibly no significant change from the previous study on . Because of the differences in the technical quality, exact comparison is difficult Dr Mai Garcia MD [facility] (Electronically Signed) Final Date: 02 December 2024 00:04 S
--- NOTE | 2024-12-01 12:48 | ECG_ITS ---
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 Measurements Intervals [place] Rate: 73 P: 24 [place]: 128 QRS: 3 QRSD: 106 T: -18 QT: 412 QTc: 454 Interpretive Statements SINUS RHYTHM NONSPECIFIC ST & T-WAVE ABNORMALITY Compared to ECG 11/30/2024 17:20:09 No significant changes Electronically Signed On 12-01-2024 17:19:03 CDT by Mai Garcia M.D. [email or web address] [id number]
--- NOTE | 2024-12-01 13:42 | PC.NURSE ---
pt has had several episodes substernal chest pain since cath yesterday.relieved mildly with pain medication.dr fulton examined pt.ekg performed as ordered.no changes observed...but from physical assessment...pt is clearly in pain.decision made to take pt back to flower shop laborer/designer.consent obtained.flower shop laborer/designer staff here to transport to flower shop laborer/designer
--- NOTE | 2024-12-01 13:48 | PC.NURSE ---
dr darden notified that pt is going back to microbiology lab assistant
--- NOTE | 2024-12-01 14:07 | P.HPUD_ITS ---
Surgery/Procedure H&P Update DATE OF PROCEDURE: December 01, 2024 DATE H&P PERFORMED: 11/25/24 H&P UPDATE INFORMATION: I have reviewed H&P completed within last 30 days, I have examined patient prior to procedure and No changes to prior documentation PREOP DIAGNOSIS: Non-ST elevation, CHF, recurrent chest pain which is now persistent in natu PRIMARY INDICATION FOR PROCEDURE: Patient underwent left heart cath noted to have significant circumflex obtuse marginal and LAD stenosis treated with drug-eluting stents and balloon angioplasty of small caliber groove circumflex, groove circumflex went down after stenting however it was treated with balloon angioplasty flow was restored, since last night patient started continuing chest pain post PCI off-and-on basis troponin is around 350 which could be from balloon angioplasty and stent placement however since his chest pain is getting worse and not relieved with nitroglycerin anymore and morphine we will proceed with a left heart cath to make sure that our previously placed stents are fine and there is no residual dissection stenosis or complication. It is the reason patient is brought back to the Employment Educational Coord. PLANNED PROCEDURE: Operation Date: 11/30/24 08:30 Proposed Procedures p Cardiac Catheterization(Not Applicable) - Hernan Mckee MD PATIENT REASSESSED PRIOR TO SEDATION, WITH NO CHANGE NOTED: Yes PHYSICAL EXAM: alert, oriented x 3, clear to auscultation bilaterally and regular rate & rhythm AIRWAY EVAL/ANESTHESIA PLAN: ASA II, Risks, benefits & alternatives of sedation and/or procedure discussed and Patient agrees to continue as planned ADDITIONAL INFORMATION: Patient has been explained all risk benefit and alternative for the procedure he understand 2% risk of stroke major bleed, he understand 5% risk of minor bleeding oozing infection hematoma pseudoaneurysm contrast-induced nephropathy urgent emergent vascular bypass surgery. He understood and would like to proceed with it.
--- NOTE | 2024-12-01 14:59 | P.PCN_ITS ---
Procedure Note: Date of procedure: 12/01/24 Pre-procedure diagnosis: Non-ST elevation UT, recurrent chest pain Post-procedure diagnosis: same Procedure: Left heart cath was performed urgently with indication of recurrent chest pain persistently after the previous PCI yesterday at that time proximal LAD and mid circumflex was stented while jailed disease groove circumflex was treated with balloon angioplasty, patient continues to have chest pain since last night off-and-on basis as it was not improving and getting better therefore decided to take to the patient Social Insurance Specialist. RCA was not engaged Separate ostia without left main LAD has luminal irregularities with patent previously placed proximal stent Separate ostia of the circumflex with patent previously placed mid and distal obtuse marginal stent Groomed circumflex as high-grade 90% stenosis with sluggish flow it is a culprit vessel, yesterday it was balloon angioplastied PCI to ostial groove circumflex with 2.75 x 15 mm drug-eluting stent [place] postdilated with 3.0 x 12 mm noncompliant balloon with excellent angiographic result Plan: Bedrest for 4 hours since right common femoral was Angio-Seal Continue Plavix aspirin statin beta-jossie Monitor post PCI Possible discharge tomorrow Coding Level of Care Code Acute Code for Chg Fwd
--- NOTE | 2024-12-01 15:18 | PC.NURSE ---
return from cardiac cardiac cath technologist via bed at 1500.report received.pt is sleepy but easily awakened.right groin with dressing dry and intact.(angioseal in cardiac cath technologist).no hematoma noted.right leg is warm to touch and with brisk capillary refill.palpable right dp pulse noted.pt instructed in activity restrictions s/p femoral artery procedure..and instructed to notify staff for any bleeding,numbness,sob,pain..or for any concerns at all.pt verb understanding of instructions.no c/o chest pain at this time
--- NOTE | 2024-12-01 16:53 | PM.PN ---
Subjective Subjective: Patient was seen this morning he has not had any hemoptysis throughout the night, he had 3 episodes of hemoptysis yesterday afternoon, denies any fevers, no chills he continues to have anterior chest discomfort, troponin series noted overnight, EKG no acute ST-T wave changes, 6-hour troponin 395, but this was after his cardiac catheterization discussed his CTA does not show any evidence of acute bronchial bleed or bleeding lesion, due to his persistent chest pain, spoke to cardiology, cardiology planning on taking him back to cardiac Sap Bpc Architect this afternoon, due to recurrent chest pain, discussed with patient his blood sugar elevation, we will have to watch his blood sugars closely, increase the dose of his Lantus, plan on dialysis this evening based on clinical progress Vitals/I&O/Wt Last Vital Signs Temp 96.9 F L 12/01/24 15:24 Pulse 71 12/01/24 15:24 Resp 12 12/01/24 15:24 BP 156/81 12/01/24 15:24 Pulse Ox 95 12/01/24 15:24 O2 Del Method Room Air 12/01/24 15:20 O2 Flow Rate 1 11/27/24 07:39 12/01/24 12/01/24 12/01/24 06:59 14:59 22:59 Intake Total 600 / 1860 240 / 240 Output Total 1350 / 5050 500 / 500 Balance -750 / -3190 -260 / -260 Weight last 48 hrs Weight 100.244 kg Weight 100.5 kg Weight 103.873 kg Physical Exam Const: COMMON NORMALS: no acute distress and patient oriented x3 Resp: COMMON NORMALS: normal respiratory effort, No retractions and No use of accessory muscles AUSCULTATION: crackles Cardio: COMMON NORMALS: regular rate, regular rhythm, S1 normal heart sound present and S2 normal heart sound present RATE: regular rate RHYTHM: regular rhythm HEART SOUNDS: S1 normal heart sound present and S2 normal heart sound present GI: COMMON NORMALS: Normal to inspection, nondistended, normoactive bowel sounds present and non-tender Extremity: COMMON NORMALS: no pedal edema Neuro: COMMON NORMALS: patient oriented x3 Psych: COMMON NORMALS: mental status grossly normal Data 12/01/24 00:46 12/01/24 00:46 A&P Assessment and plan 1. Acute hypoxic respiratory failure: 2. CHF exacerbation: 3. COPD exacerbation: 4. Pneumonia: 5. Diabetes: 6. Liver cirrhosis: 7. CKD (chronic kidney disease): 8. ESRD (end stage renal disease): 9. Hemoptysis: 10. Chest pain: Plan: Hemoptysis - On aspirin, Plavix, was on therapeutic Lovenox, was on heparin drip, DVT prophylaxis heparin has been held - CT angiogram the chest mild CHF, ascites with splenomegaly -So far the hemoptysis has resolved - Will consider nebulized TXA - Continue cough suppressant Tessalon 200 mg 3 times daily - Guaifenesin with codeine Recurrent chest pain, with NSTEMI - Plan on cardiac catheterization this afternoon Acute hypoxic respiratory failure - Multifactorial - COPD exacerbation - Pneumonia, concerns with productive cough - Diastolic CHF exacerbation, - 7 L Plan - prednisone 40 mg daily, discontinue today - DuoNeb - Budesonide - Bumex 1 mg p.o. daily - Status post 4 sessions of inpatient dialysis - Continue Zithromycin - Cultures, blood cultures - Monitor respiratory status closely - Full code - Heparin for DVT prophylaxis NSTEMI, - Status post 2 cardiac stents, balloon angioplasty on 11/30/2024 - On aspirin, Plavix, statin End-stage renal disease on dialysis Fall, reported head trauma head CT, no acute findings Type 2 diabetes mellitus, high-dose sliding scale, has hyperglycemia with prednisone increase Lantus to 20 units twice daily Thrombocytopenia, no active bleeding, monitor Plan for today due to recurrent chest pain plan on cardiac catheterization PDMP PDMP Reviewed: Last Reviewed 11/24/24 17:58 by Zion Gillis MD Attestations Medical Necessity Statement*: Patient requires hospitalization for recurrent chest pain, NSTEMI, fluid overload, hypoglycemia, hemoptysis Diagnoses Acute hypoxic respiratory failure J96.01 Acute on chronic diastolic congestive heart failure I50.33 Heart failure type: diastolic COPD exacerbation J44.1 Pneumonia due to infectious organism, unspecified laterality, unspecified part of lung J18.9 Laterality: unspecified laterality Lung location: unspecified part of lung Pneumonia type: due to unspecified organism Type 2 diabetes mellitus with other circulatory complication, with long-term current use of insulin E11.59; Z79.4 Diabetes mellitus complication detail: with other circulatory complications Diabetes mellitus complication status: with circulatory complication Diabetes mellitus termite exterminator helper insulin use: with termite exterminator helper use Diabetes mellitus type: type 2 Hepatic cirrhosis, unspecified hepatic cirrhosis type, unspecified whether ascites present K74.60 Ascites presence: unspecified Hepatic cirrhosis type: unspecified hepatic cirrhosis Stage 4 chronic kidney disease N18.4 Chronic kidney disease stage: stage 4 (GFR 15-29) ESRD (end stage renal disease) N18.6 Hemoptysis R04.2 Chest pain R07.9
[2024-12-01 17:43] LABS: Anion Gap 15.0 (5-19); Blood Urea Nitrogen 66 mg/dL (6-20); Calcium 8.3 mg/dL (8.5-10.5); Carbon Dioxide 21 mmol/L (22-29); Chloride 103 mmol/L (98-107); Creatinine Clr Calc Pharmacy 35.4768; Glucose 150 mg/dL (65-115); Osmolality Calculated 302 mOsm/kg (285-295); Potassium 4.0 mmol/L (3.5-5.1); Sodium 135 mmol/L (136-145)
--- NOTE | 2024-12-01 20:40 | PC.NURSE ---
pt left for dialysis at approx at 2030
--- NOTE | 2024-12-01 20:49 | P.PN_ITS ---
Subjective 2 Subjective: no new c/o Medications: Reviewed: Yes Vitals/I&O/Wt Last Vital Signs Temp 96.9 F L 12/01/24 15:24 Pulse 66 12/01/24 19:15 Resp 16 12/01/24 19:15 BP 128/67 12/01/24 19:15 Pulse Ox 96 12/01/24 19:15 O2 Del Method Room Air 12/01/24 15:20 O2 Flow Rate 1 11/27/24 07:39 12/01/24 12/01/24 12/01/24 06:59 14:59 22:59 Intake Total 600 / 1860 240 / 240 360 / 600 Output Total 1350 / 5050 500 / 500 Balance -750 / -3190 -260 / -260 360 / 100 Weight last 48 hrs Weight 100.244 kg Weight 100.5 kg Weight 103.873 kg Physical Exam 2 Narrative: vital signs noted Patient is using NC O2 @ 2 L HEENT is normocephalic atraumatic. +[place] rt side Neck is supple. Lungs have much improved air movement bilaterally. Patient has an anterior chest wall permacath. Heart regular positive S1-S2. Abdomen is soft nontender positive bowel sounds. Extremities -the patient has bilateral trace leg edema. Neuro awake alert oriented x 3 Data 12/01/24 00:46 12/01/24 17:13 A&P Assessment and plan 1. ESRD (end stage renal disease): 54-year-old gentleman history of heart failure preserved EF, disseminated blastomycosis, cirrhosis, diabetes, COPD obstructive sleep apnea, had severe ascites and started dialysis in July 2024 then was taken off of dialysis and was restarted. 1. ESRD ; HD yesterday and again today 2. Anemia hemoglobin has improved from August. Iron saturation of 22% ferritin 550 can use iron. await repeat SPEP and serum immunofixation. 3 Elevated troponin and BNP - cardiac eval in progress, /p LHC again today 4. Diabetes hemoglobin A1c improved in September to 6.7. 5. anemia- check iron studies Medications reviewed Patient seen and examined using A/V equipment with the aid of a nurse. Patient consented to telehealth and hemodialysis. Plan: Shortness of breath. Evaluation as per cardiology and we will continue hemodialysis . PDMP PDMP Reviewed: Not Reviewed Attestations 2 Medical Necessity Statement*: per medicne Coding Level of Care Code Acute Code for Chg Fwd Diagnoses ESRD (end stage renal disease) N18.6
[2024-12-01] MEDS: ondansetron 2 mg/ML SDV 2 mL 4 MG IVP (23:38)
[2024-12-02] VITALS (9 sets, daily range): BP systolic 125–152; BP diastolic 70–77; PULSE 60–66; RESP 12–18; TEMP 36.6–36.9; O2SAT 94–97
--- NOTE | 2024-12-02 00:26 | PC.NURSE ---
Returned to floor from dialysis at approx 2330
[2024-12-02] MEDS: sucralfate 1 gm/10 mL Oral Liq UDC PO ×3 (01:39→12:27)
[2024-12-02] MEDS: alum-mag-hydroxide-sime 30 mL UDC PO (02:04)
[2024-12-02] MEDS: HYDROcodone-acetaminophen 5-325 mg Tablet 1 TAB PO ×2 (02:04→07:59)
[2024-12-02 02:47] LABS: Hematocrit 32.3 % (37-53); Hemoglobin 9.90 g/dL (11.27-16.99); Mean Corpuscular HGB Conc 30.7 g/dL (30-55); Mean Corpuscular Hemoglobin 29.1 pg (27-33); Mean Corpuscular Volume 95.0 fl (82-101); Nucleated Red Blood Cells % 0.2 %; Platelet Count 76 10^3/cmm (157-399); Red Blood Count 3.40 10^6/uL (3.85-5.65); White Blood Count 10.12 10^3/uL (3.29-11.43)
[2024-12-02 03:06] LABS: Anion Gap 15.1 (5-19); Blood Urea Nitrogen 46 mg/dL (6-20); Calcium 8.3 mg/dL (8.5-10.5); Carbon Dioxide 25 mmol/L (22-29); Chloride 102 mmol/L (98-107); Creatinine Clr Calc Pharmacy 43.7020; Glucose 140 mg/dL (65-115); Osmolality Calculated 300 mOsm/kg (285-295); Potassium 4.1 mmol/L (3.5-5.1); Sodium 138 mmol/L (136-145)
[2024-12-02] MEDS: morphine 4 mg/mL SDV 1 mL 2 MG IVP ×2 (04:44→09:44)
[2024-12-02] MEDS: pantoprazole 40 mg SDV IVP (06:13)
[2024-12-02] MEDS: guaiFENesin-codeine UDC 10 mL 5 ML PO (07:54)
[2024-12-02] MEDS: insulin glargine 100 units/1 mL 20 UNIT SUBCUT (07:54)
--- NOTE | 2024-12-02 09:41 | XRR_ITS ---
PROCEDURE INFORMATION: Exam: XR Abdomen Exam date and time: 12/02/2024 10:35 AM Age: 54 years old Clinical indication: Generalized; Prior surgery; Surgery date: Post-operative (0-2 days); Surgery type: Stent/dialysis cath; Abdominal pain and distention. PT had stent surgery yesterday. ; Additional info: Distention with pain TECHNIQUE: Imaging protocol: Radiologic exam of the abdomen. Views: Frontal supine view of the abdomen. 1 View. COMPARISON: US renal BI* [id number] 08/05/2024 9:36 AM FINDINGS: Gastrointestinal tract: There is a moderate amount of stool noted throughout the colon. No bowel distension. Bones/joints: Unremarkable. XR/XR KUB portable [id number] IMPRESSION: Constipation
--- NOTE | 2024-12-02 10:59 | P.PN_ITS ---
Subjective 2 Subjective: no new c/o /p HD lat night Medications: Reviewed: Yes Vitals/I&O/Wt Last Vital Signs Temp 97.9 F 12/02/24 07:35 Pulse 60 12/02/24 07:35 Resp 12 12/02/24 09:44 BP 148/76 12/02/24 07:52 Pulse Ox 97 12/02/24 07:35 O2 Del Method Room Air 12/02/24 07:35 O2 Flow Rate 1 11/27/24 07:39 12/01/24 12/02/24 12/02/24 22:59 06:59 14:59 Intake Total 600 / 840 300 / 1140 360 / 360 Output Total 3800 / 4300 Balance 600 / 340 -3500 / -3160 360 / 360 Weight last 48 hrs Weight 100.38 kg Weight 101 kg Weight 100.244 kg Weight 100.5 kg Physical Exam 2 Narrative: vital signs noted Patient is using NC O2 @ 2 L HEENT is normocephalic atraumatic. +[place] rt side Neck is supple. Lungs have much improved air movement bilaterally. Patient has an anterior chest wall permacath. Heart regular positive S1-S2. Abdomen is soft nontender positive bowel sounds. Extremities -the patient has bilateral trace leg edema. Neuro awake alert oriented x 3 Data 12/02/24 02:30 12/02/24 02:30 A&P Assessment and plan 1. ESRD (end stage renal disease): 54-year-old gentleman history of heart failure preserved EF, disseminated blastomycosis, cirrhosis, diabetes, COPD obstructive sleep apnea, had severe ascites and started dialysis in July 2024 then was taken off of dialysis and was restarted. 1. ESRD ; HD done last night 2. Anemia hemoglobin has improved from August. Iron saturation of 22% ferritin 550 can use iron. await repeat SPEP and serum immunofixation. 3 Elevated troponin and BNP - cardiac eval in progress, /p C again today 4. Diabetes hemoglobin A1c improved in September to 6.7. 5. anemia- check iron studies Medications reviewed Patient seen and examined using A/V equipment with the aid of a nurse. Patient consented to telehealth and hemodialysis. Plan: Shortness of breath. Evaluation as per cardiology and we will continue hemodialysis . PDMP PDMP Reviewed: Not Reviewed Attestations 2 Medical Necessity Statement*: per mediicne Coding Level of Care Code Acute Code for [facility] Diagnoses ESRD (end stage renal disease) N18.6
[2024-12-02] MEDS: polyethylene glycol 3350 Pkt 17 gm PO (11:21)
--- NOTE | 2024-12-02 11:25 | P.PN_ITS ---
<Statement entered by Raul Sánchez M.D - 12/06/24 13:36> Patient was cared for in conjunction with an advanced practice practitioner.? I reviewed the chart and all pertinent data including imaging, telemetry, and laboratory results.? I discussed the patient in detail with the advanced practice practitioner.? Please see their note for complete progress note, testing results and agreed upon plan of care for the patient. Subjective 2 Subjective: He has done well overnight, no chest pain this morning. Limited echocardiogram yesterday did not show pericardial effusion. No complications with right femoral cath site, status post Angio-Seal. PCI of the ostial groove circumflex yesterday. Vitals/I&O/Wt Last Vital Signs Temp 97.9 F 12/02/24 07:35 Pulse 60 12/02/24 07:35 Resp 12 12/02/24 09:44 BP 148/76 12/02/24 07:52 Pulse Ox 97 12/02/24 07:35 O2 Del Method Room Air 12/02/24 07:35 O2 Flow Rate 1 11/27/24 07:39 12/01/24 12/02/24 12/02/24 22:59 06:59 14:59 Intake Total 600 / 1140 300 / 1140 360 / 360 Output Total 3800 / 4300 Balance 600 / -3160 -3500 / -3160 360 / 360 Weight last 48 hrs Weight 221 lb 4.8 oz Weight 222 lb 10.67 oz Weight 221 lb Weight 221 lb 9.033 oz Physical Exam 2 Const: COMMON NORMALS: no acute distress and patient oriented x3 GENERAL APPEARANCE: cooperative ORIENTATION/CONSCIOUSNESS: Yes awake, Yes oriented to person, Yes oriented to place and Yes oriented to time Chest: COMMONS NORMALS: normal inspection of the chest and normal palpation of entire chest wall CHEST: Yes Symmetrical chest wall rise Resp: COMMON NORMALS: normal respiratory effort, No retractions, No use of accessory muscles and clear to auscultation bilaterally AUSCULTATION: clear to auscultation bilaterally Cardio: COMMON NORMALS: regular rate, regular rhythm, S1 normal heart sound present, S2 normal heart sound present, No gallops present (Cardio), No clicks present (Cardio), No murmurs present (Cardio) and No rub (Cardio) RATE: r egular rate RHYTHM: regular rhythm HEART SOUNDS: S1 normal heart sound present and S2 normal heart sound present PERIPHERAL PULSES: radial pulses present positive right 2+ and femoral pulses present positive right 2+ Neuro: COMMON NORMALS: patient oriented x3 and moves all extremities S ENSORIUM/ORIENTATION: Yes oriented to person, Yes oriented to place and Yes oriented to time Skin: WOUNDS: Yes surgical site (no hematoma palpable) Details: no odor Data 12/02/24 02:30 12/02/24 02:30 A&P Assessment and plan 1. NSTEMI (non-ST elevated myocardial infarction): 2. CHF exacerbation: 3. Hypertension: 4. Diabetes: 5. ESRD (end stage renal disease): 6. Liver cirrhosis: Plan: Doing better today status post PCI to groove circumflex. Continue aspirin, Plavix, losartan, Coreg, Bumex, atorvastatin, amlodipine, doxazosin, Imdur. He appears well compensated, -3 L for the last 24 hours. PDMP PDMP Reviewed: Not Reviewed Attestations 2 Medical Necessity Statement*: Per hospitalist Coding Level of Care Code Acute Code for [facility] Diagnoses NSTEMI (non-ST elevated myocardial infarction) I21.4 CHF exacerbation I50.9 Hypertension I10 Diabetes E11.9 ESRD (end stage renal disease) N18.6 Liver cirrhosis K74.60
--- NOTE | 2024-12-02 12:45 | PM.DCS ---
Discharge Providers Date of Admission: 11/24/24 17:58 Date of Discharge: December 02, 2024 Attending Provider at Admission: Zion Gillis MD Attending Provider at Discharge: Zion Gillis MD Primary Care Provider: PATRICE Nicole Diagnoses at Discharge Discharge Diagnosis 1. NSTEMI (non-ST elevated myocardial infarction): 2. Acute on chronic diastolic congestive heart failure: 3. Primary hypertension: 4. Type 2 diabetes mellitus with other circulatory complication, with long-term current use of insulin: 5. ESRD (end stage renal disease): 6. Hepatic cirrhosis, unspecified hepatic cirrhosis type, unspecified whether ascites present: Reason for Visit Reason for Visit: SOB Hospital Course Hospital Course Guido Whalen is a 54 year old male end-stage renal disease Saturday, diastolic CHF, history of disseminated blastomycosis, liver cirrhosis, COPD, obstructive sleep apnea, who presents to [facility] for shortness of breath. Patient reports that he is experience increased shortness of breath, increased shortness of breath with exertion, increased edema, no chest pain, no palpitations, has had a cough, productive cough, no fevers, chills does report wheezing, no recent travel, no calf pain, no calf tenderness, does have lower extremity edema, does report anasarca, does report that a few days ago, he fell and hit his head, no headache, no blurry vision, no nausea, no vomiting Patient had a prolonged hospitalization please look at my last progress note for further detail Patient was admitted to [facility] for acute hypoxic respiratory failure secondary to COPD, pneumonia, diastolic CHF exacerbation For patient's COPD exacerbation, he was managed with nebulizer treatments, steroid therapy, overall clinically improved, completed his steroid therapy as inpatient For patient's diastolic CHF exacerbation, received inpatient IV diuresis, inpatient dialysis, he was diuresed over 9.9 L net negative, discharged to resume his dialysis as outpatient, Bumex therapy, with close follow-up with primary care provider as outpatient For concerns for pneumonia received IV antibiotics during his hospitalization, completed antibiotic therapy as inpatient There was concerns for NSTEMI during his hospitalization, chest pain, - Cardiology was consulted, managed on aspirin, statin, full dose anticoagulant therapy - Cardiac echo showed an EF of 55 to 60%, no regional wall motion abnormalities - Cardiology consulted underwent cardiac catheterization, status post PCI to mid to mid circumflex OM1, PCI to discharge to his marginal 1, PCI to proximal LAD, balloon angioplasty to jailed circumflex however since its proved circumflex it was left for medical management - Due to persistent chest pain, taken back to the cardiac catheterization lab, status post PCI to ostial groove circumflex with drug-eluting stent -Tolerated procedure well -no recurrent chest pain -No recurrent shortness of breath - Discharged on aspirin, statin, Plavix, Coreg, nitro as needed with close follow-up with cardiology as outpatient Patient's hospitalization was complicated by hyperglycemia secondary to type 2 diabetes, secondary to steroids requiring up to Lantus 20 units twice daily, with a high-dose sliding scale - Patient's blood sugars have improved as steroid therapy has been de-escalated and discontinued - Will be discharged with instructions as below - For your type 2 diabetes - I have discharged you on Lantus 10 units twice daily - If your blood sugars start running less than 150, or you develop episodes of hypoglycemia you can decrease your Lantus to 10 units once daily - Your insulin requirements have increased as you were on steroids during her hospitalization, your insulin requirements will likely decrease over the next few days-few weeks as the steroid effect start to wear off -Please monitor your blood sugars closely -Monitor your blood sugars 3 times daily as after meals -Please record your blood sugars, and a blood sugar log -For your NovoLog -Please inject blood sugar after meals based on sliding scale provided -Do not inject insulin if you do not eat as hypoglycemia kills -This is a NovoLog sliding scale -Insulin sliding ?fingerstick? Insulin ?141-180?4 units/sq 181-220?6 units/sq ?221-260?8 units/sq ?261-300 10 units/sq ?301-350?12 units/sq ?351-400 14 units/sq ?401-450?16 units/sq >450? 18 units/sq -If your blood sugar is greater than 500 go to the emergency room -If your blood sugar is less than 60 or at anytime you feel lightheaded or dizzy or diaphoretic or have chest palpitations check your blood sugar, and eat a hard candy or drink orange juice and go immediately to the emergency room -Remember hypoglycemia kills, so if his blood sugar is less than 60 we have to increase it by taking in a sugary meal such as a hard candy or orange juice and go to the emergency room -If you have any questions please call us where here to help Due to constipation, will be discharged on MiraLAX, senna, as outpatient Physical Exam Const: COMMON NORMALS: no acute distress and patient oriented x3 Resp: COMMON NORMALS: normal respiratory effort, No retractions, No use of accessory muscles and clear to auscultation bilaterally AUSCULTATION: clear to auscultation bilaterally Cardio: COMMON NORMALS: regular rate, regular rhythm, S1 normal heart sound present and S2 normal heart sound present RATE: regular rate RHYTHM: regular rhythm HEART SOUNDS: S1 normal heart sound present and S2 normal heart sound present GI: COMMON NORMALS: Normal to inspection, nondistended, normoactive bowel sounds present and non-tender Extremity: COMMON NORMALS: no pedal edema Neuro: COMMON NORMALS: patient oriented x3 Psych: COMMON NORMALS: mental status grossly normal Discharge Data Studies Completed and Pending Completed Studies During Hospitalization Category Date Time Status CT angio chest PE protcl [id number] Stat Cat Scan 11/24/24 18:[address] angio chest PE protcl [id number] Stat Cat Scan 11/30/24 17:[address] head wo con* [id number] Routine Cat Scan 11/24/24 18:13 Completed XR KUB portable [id number] Stat Exams 12/02/24 09:41 Completed XR chest 1V portable [id number] Routine Exams 11/30/24 17:03 Completed XR chest 1V portable [id number] Stat Exams 11/24/24 15:02 Completed CV. echo limited [id number] Routine Ultrasound 11/25/24 08:15 Completed CV. echo limited [id number] Urgent Ultrasound 12/01/24 10:56 Completed Pending at discharge Category Date Time Status RETAIL SALESWORKER request for service Routine Exams 11/30/24 08:00 Taken RETAIL SALESWORKER request for service Routine Exams 12/01/24 13:37 Taken Radiology Impressions Head CT 11/24/24 18:13 IMPRESSION: No acute intracranial abnormality. Chest X-Ray 11/30/24 17:03 IMPRESSION: No acute findings. Chest CTA 11/30/24 17:26 IMPRESSION: 1. Mild CHF 2. Ascites with splenomegaly KUB X-Ray 12/02/24 09:41 IMPRESSION: Constipation Laboratory Results WBC 10.12 10^3/uL (3.29-11.43) 12/02/24 02:30 RBC 3.40 10^6/uL (3.85-5.65) L 12/02/24 02:30 Hgb 9.90 g/dL (11.27-16.99) L 12/02/24 02:30 Hct 32.3 % (37-53) L 12/02/24 02:30 MCV 95.0 fl (82-101) 12/02/24 02:30 MCH 29.1 pg (27-33) 12/02/24 02:30 MCHC 30.7 g/dL (30-55) 12/02/24 02:30 RDW 20.2 % (12.1-15.1) H 12/02/24 02:30 Plt Count 76 10^3/cmm (157-399) L 12/02/24 02:30 MPV 11.3 fL (7.4-10.4) H 12/02/24 02:30 Neut % (Auto) 75.2 % 12/02/24 02:30 Lymph % (Auto) 11.6 % 12/02/24 02:30 [place] % (Auto) 7.5 % 12/02/24 02:30 Eos % (Auto) 0.9 % 12/02/24 02:30 Baso % (Auto) 0.0 % 12/02/24 02:30 Neut # (Auto) 7.61 10^3/uL (1.8-7.7) 12/02/24 02:30 Lymph # (Auto) 1.2 10^3/uL (0.8-4.8) 12/02/24 02:30 [place] # (Auto) 0.8 10^3/uL (0.2-0.9) 12/02/24 02:30 Eos # (Auto) 0.1 10^3/uL (0.0-0.8) 12/02/24 02:30 Baso # (Auto) 0.0 10^3/uL (0.0-0.1) 12/02/24 02:30 Nucleated RBC % (auto) 0.2 % 12/02/24 02:30 Total Counted 100 (0-100) 11/30/24 02:23 Atypical Lymphs % 2.0 % (0-5) 11/30/24 02:23 Absolute Neutrophils 9.3 10^3/cmm (1.4-6.5) H 11/30/24 02:23 Segmented Neutrophils 75 % 11/30/24 02:23 Band Neutrophils 1.0 % 11/30/24 02:23 Absolute Lymphocytes 2.2 10^3/cmm (1.2-3.4) 11/30/24 02:23 Lymphocytes (Manual) 16 % 11/30/24 02:23 Monocytes (Manual) 6.0 % 11/30/24 02:23 Absolute Monocytes 0.7 10^3/cmm (0.1-0.6) H 11/30/24 02:23 Eosinophils (Manual) 0 % 11/30/24 02:23 Absolute Eosinophils 0.0 10^3/cmm (0.0-0.7) 11/30/24 02:23 Basophils (Manual) 0.0 % 11/30/24 02:23 Absolute Basophils 0.0 10^3/cmm (0.0-0.2) 11/30/24 02:23 Nucleated RBCs # 0.0 /100WBC 12/02/24 02:30 Platelet Estimate Decreased (Normal) 11/30/24 02:23 PT 14.60 SECONDS (12.1-14.9) 11/30/24 15:55 INR 1.07 (0.8-1.2) 11/30/24 15:55 APTT 54.5 SECONDS (23.9-36.7) H 11/30/24 15:55 Sodium 138 mmol/L (136-145) 12/02/24 02:30 Potassium 4.1 mmol/L (3.5-5.1) 12/02/24 02:30 Chloride 102 mmol/L (98-107) 12/02/24 02:30 Carbon Dioxide 25 mmol/L (22-29) 12/02/24 02:30 Anion Gap 15.1 (5-19) 12/02/24 02:30 BUN 46 mg/dL (6-20) H 12/02/24 02:30 Creatinine 2.2 mg/dL (0.7-1.2) H 12/02/24 02:30 GFR Calculation 31.2 mL/min (90-130) L 12/02/24 02:30 Glucose 140 mg/dL (65-115) H 12/02/24 02:30 POC Glucose 194 mg/dL (70-110) H 12/02/24 11:02 Calculated Osmolality 300 mOsm/kg (285-295) H 12/02/24 02:30 Lactic Acid 1.3 mmol/L (0.5-2.2) 11/24/24 19:14 Calcium 8.3 mg/dL (8.5-10.5) L 12/02/24 02:30 Phosphorus 4.6 mg/dL (2.5-4.5) H 11/30/24 02:23 Magnesium 2.3 mg/dL (1.7-2.3) 11/30/24 02:23 Iron 87 ug/dL (59-158) 11/27/24 05:45 TIBC 131 mcg/dl 11/27/24 05:45 % Saturation 66.4 % (20-50) H 11/27/24 05:45 Unsat Iron Binding 44 ug/dL (112-347) L 11/27/24 05:45 Ferritin 813 ng/mL (30-400) H 11/27/24 05:45 Total Bilirubin 0.3 mg/dL (0.15-1.2) 11/30/24 02:23 AST 20 U/L (0-40) 11/30/24 02:23 ALT 17 U/L (0-41) 11/30/24 02:23 Alkaline Phosphatase 143 U/L (40-130) H 11/30/24 02:23 Troponin T Baseline 383 ng/L (0-15) H* 11/30/24 18:44 Troponin T 120 Minute 394.9 ng/L (0-15) H 11/30/24 20:59 Delta Troponin T 11.9 ABS# (0-10) H* 11/30/24 20:59 Troponin T Hi Sens 6Hr 395.6 ng/L (0-15) H 12/01/24 00:46 Troponin T Hi Sens 6Hr Delta 12.6 ng/L (0-12) H* 12/01/24 00:46 C-Reactive Protein 7.4 mg/L (0.0-4.9) H 11/30/24 02:23 NT-Pro-B Natriuret Pep 41154 pg/mL (0-125) H 11/30/24 02:23 Total Protein 6.1 g/dL (6.6-8.7) L 11/30/24 02:23 Albumin 3.0 g/dL (3.5-5.2) L 11/30/24 02:23 Globulin 3.1 g/dL (1.3-4.6) 11/30/24 02:23 Ycgsw-0-Pxlyrbhom 0.4 g/dL (0.2-0.3) H 11/25/24 04:46 Dohji-4-Nifapyfvx 0.9 g/dL (0.5-0.9) 11/25/24 04:46 Eose-6-Xezczlyj 0.3 g/dL (0.4-0.6) L 11/25/24 04:46 Tair-0-Relzdioh 0.5 g/dL (0.2-0.5) 11/25/24 04:46 Gamma Globulins 2.3 g/dL (0.8-1.7) H 11/25/24 04:46 Abnorm Protein Band 1 Not Reportable 11/25/24 04:46 25-OH Vitamin D Total 42 ng/mL (30-100) 11/25/24 00:20 Procalcitonin 0.15 ng/mL (0-0.5) 11/30/24 02:23 TSH 1.02 uIU/mL (0.27-4.20) 11/24/24 19:14 PTH Intact 63.6 pg/mL (15-65) 11/25/24 00:20 Calcium (PTH Intact) 8.2 mg/dL (8.5-10.5) L 11/25/24 00:20 Urine Color Yellow (Yellow) 11/25/24 13:55 Urine Appearance Cloudy (CLEAR) A 11/25/24 13:55 Urine pH 5.0 (5-7) 11/25/24 13:55 Ur Specific [place] 1.027 (1.005-1.030) 11/25/24 13:55 Urine Protein 3+ (Negative) A 11/25/24 13:55 Urine Glucose (UA) 3+ (Normal) H 11/25/24 13:55 Urine Ketones Negative (Negative) 11/25/24 13:55 Urine Blood 2+ (Negative) A 11/25/24 13:55 Urine Nitrate Negative (Negative) 11/25/24 13:55 Urine Bilirubin Negative (Negative) 11/25/24 13:55 Urine Urobilinogen 1.0 mg/dL (Negative) 11/25/24 13:55 Ur Leukocyte Esterase Negative (Negative) 11/25/24 13:55 Urine RBC 3-5 /hpf (0-2) 11/25/24 13:55 Urine WBC 0-5 /hpf (0-5) 11/25/24 13:55 Ur Squamous Epith Cells 0-5 /hpf (0-5) 11/25/24 13:55 Amorphous Sediment Not Reportable 11/25/24 13:55 Urine Bacteria None seen /hpf (NONE) 11/25/24 13:55 Hyaline Casts 40.94 /lpf 11/25/24 13:55 U Abnormal Prot Band 2 Not Reportable 11/25/24 04:46 U Abnormal Prot Band 3 Not Reportable 11/25/24 04:46 Pro Electrophoresis Int See note 11/25/24 04:46 Serum Immunofixation Normal pattern. 11/25/24 00:20 Free Long Barn Light Chains 216.9 mg/L (3.3-19.4) H 11/25/24 00:20 Free Lambda Light Chain 308.2 mg/L (5.7-26.3) H 11/25/24 00:20 Free Long Barn/Lambda Ratio 0.70 (0.26-1.65) 11/25/24 00:20 Hep Bs Antigen Non-reactive (Nonreactive) 11/25/24 00:20 Hep Bs Antibody 24.1 (11.5-1000) 11/25/24 00:20 Hepatitis C Antibody Non-reactive (Nonreactive) 11/25/24 00:20 Influenza A (PCR) Negative (Negative) 11/24/24 15:30 Influenza Type B (PCR) Negative (Negative) 11/24/24 15:30 RSV (PCR) Negative (Negative) 11/24/24 15:30 SARS-CoV-2 (PCR) Negative (Negative) 11/24/24 15:30 Vitals Last Vital Signs Temp 98.0 F 12/02/24 12:00 Pulse 66 12/02/24 12:00 Resp 14 12/02/24 12:00 BP 125/70 12/02/24 12:00 Pulse Ox 97 12/02/24 12:00 O2 Del Method Room Air 12/02/24 12:00 O2 Flow Rate 1 11/27/24 07:39 Discharge Plan Discharge Patient Disposition: Home Condition: Stable Prescriptions: New atorvastatin 40 mg Tablet 40 mg PO BEDTIME 30 Days Qty: 30 0RF clopidogrel 75 mg Tablet 75 mg PO DAILY 30 Days Qty: 30 0RF amlodipine 5 mg Tablet 5 mg PO DAILY 30 Days Qty: 30 0RF aspirin 81 mg Tablet,Delayed Release (Dr/Ec) 81 mg PO DAILY 30 Days Qty: 30 0RF benzonatate 100 mg Capsule 200 mg PO Q8H PRN (Reason: cough) 5 Days Qty: 30 0RF losartan 50 mg Tablet 50 mg PO DAILY 30 Days Qty: 30 0RF polyethylene glycol 3350 17 gram Powder In Packet 17 g PO DAILY 30 Days Qty: 30 0RF isosorbide mononitrate 30 mg Tablet Extended Release 24 Hr 30 mg PO DAILY 30 Days Qty: 3 0RF nitroglycerin 0.4 mg Tablet, Sublingual 0.4 mg sublingual Q5M PRN (Reason: Chest Pain) 30 Days Qty: 30 0RF glucagon HCl [Glucagon (HCl) Emergency Kit] 1 mg recon soln 1 mg IM Q20M PRN (Reason: hypoglycemia) Qty: 1 0RF Rx Instructions: until target blood sugar attained sennosides [Laxative (sennosides)] 8.6 mg tablet 8.6 mg PO BID 30 Days Qty: 60 0RF Continued escitalopram oxalate 5 mg tablet 5 mg PO DAILY Qty: 30 4RF cholecalciferol (vitamin D3) 1,250 mcg (50,000 unit) capsule 50,000 mcg PO Q7D Qty: 4 4RF pantoprazole [Protonix] 40 mg tablet,delayed release (DR/EC) 40 mg PO BID Qty: 180 3RF doxazosin 8 mg tablet 8 mg PO DAILY Qty: 30 4RF gabapentin 100 mg capsule 100 mg PO TID Qty: 90 3RF albuterol sulfate 90 mcg/actuation Hfa Aerosol Inhaler 2 puff INHALATION Q4H PRN (Reason: Shortness Of Breath) oxycodone 10 mg Tablet 10 mg PO Q4H PRN (Reason: Pain) cyclobenzaprine 10 mg tablet 10 mg PO BID PRN (Reason: Spasms) lidocaine [Lidocaine Pain Relief] 4 % adhesive patch,medicated 1 patch TOPICAL Q12H PRN (Reason: Pain) ferrous sulfate [FeroSul] 325 mg (65 mg iron) tablet 325 mg PO .QOD RenaPlex 800 mcg- 12.5 mg tablet 1 tab PO DAILY loperamide 2 mg capsule See Rx Instructions .ROUTE .COMPLEX PRN (Reason: Diarrhea) Rx Instructions: TAKE TWO CAPSULES (4mg) BY MOUTH ONCE NEEDED FOR diarrhea. potassium chloride 10 mEq tablet extended release 10 meq PO DAILY hydroxyzine HCl 25 mg tablet 25 mg PO BEDTIME PRN (Reason: Insomnia) Changed carvedilol 25 mg tablet 25 mg PO BID 30 Days Qty: 60 0RF insulin lispro 100 unit/mL Insulin Pen See Rx Instructions .ROUTE .COMPLEX 30 Days Qty: 15 0RF Rx Instructions: inject, subut, three times daily, after meals, based on moderate dose insulin sliding scale bumetanide 2 mg tablet 1 mg PO DAILY 30 Days Qty: 15 0RF insulin glargine [Lantus Solostar U-100 Insulin] 100 unit/mL (3 mL) Insulin Pen 10 unit SUBCUT BID 30 Days Qty: 6 0RF Discontinued voriconazole 200 mg tablet 200 mg PO Q12H 30 Days Qty: 60 0RF Rx Instructions: administer on empty stomach, at least 1 hour before or after meal(s) itraconazole 10 mg/mL solution 100 mg PO DAILY Rx Instructions: administer on an empty stomach hydralazine 25 mg tablet 25 mg PO TID Qty: 90 3RF dapagliflozin propanediol [Farxiga] 10 mg tablet 10 mg PO QAM Qty: 30 3RF furosemide [Lasix] 40 mg tablet 40 mg PO BID Qty: 10 0RF metolazone 2.5 mg tablet 2.5 mg PO DAILY torsemide 100 mg tablet 100 mg PO DAILY Referrals: [facility] [Provider Group, Infectious Disease] - 01/19/25 1:00 pm Suzi Wyatt NP [Nurse Practitioner, Cardiology] - 12/08/24 1:00 pm Corinne Nicholson FNP [Primary Care Provider, Nurse Practitioner] - 12/04/24 11:00 am Discharge Diet: Cardiac Discharge Activity: Resume usual activity Patient Instructions: Heart Failure (ED), Coronary Angioplasty (DC), CHF Stoplight, Opioid Safety, Post Angiogram Home Care Instructions, Patient Portal & Anitra Instructions Activity Restrictions/Additional Instructions: - Please continue to take aspirin and Plavix as prescribed - If you have recurrent chest pain please go to the emergency room - Please follow-up with cardiology in 1 week - For your type 2 diabetes - I have discharged you on Lantus 10 units twice daily - If your blood sugars start running less than 150, or you develop episodes of hypoglycemia you can decrease your Lantus to 10 units once daily - Your insulin requirements have increased as you were on steroids during her hospitalization, your insulin requirements will likely decrease over the next few days-few weeks as the steroid effect start to wear off -Please monitor your blood sugars closely -Monitor your blood sugars 3 times daily as after meals -Please record your blood sugars, and a blood sugar log -For your NovoLog -Please inject blood sugar after meals based on sliding scale provided -Do not inject insulin if you do not eat as hypoglycemia kills -This is a NovoLog sliding scale -Insulin sliding ?fingerstick? Insulin ?141-180?4 units/sq 181-220?6 units/sq ?221-260?8 units/sq ?261-300 10 units/sq ?301-350?12 units/sq ?351-400 14 units/sq ?401-450?16 units/sq >450? 18 units/sq -If your blood sugar is greater than 500 go to the emergency room -If your blood sugar is less than 60 or at anytime you feel lightheaded or dizzy or diaphoretic or have chest palpitations check your blood sugar, and eat a hard candy or drink orange juice and go immediately to the emergency room -Remember hypoglycemia kills, so if his blood sugar is less than 60 we have to increase it by taking in a sugary meal such as a hard candy or orange juice and go to the emergency room -If you have any questions please call us where here to help Discharge Attestations Time Spent in Discharge Care*: greater than 30 min Status at Discharge: Cognitive status at discharge: cognitively intact, Behavioral status at discharge: cooperative, Quality Metrics Clinical Quality Measures [ Acute Myocardial Infaction { Clinical Trial Participant: No; Contraindication to aspirin: None; Aspirin prescribed; Contraindication to statin: None; Statin prescribed; Contraindication to PCI: None; PCI performed;}] Coding Level of Care Code Acute Code for [facility] Fwd Diagnoses NSTEMI (non-ST elevated myocardial infarction) I21.4 Acute on chronic diastolic congestive heart failure I50.33 Heart failure type: diastolic Primary hypertension I10 Hypertension type: primary hypertension Type 2 diabetes mellitus with other circulatory complication, with long-term current use of insulin E11.59; Z79.4 Diabetes mellitus complication detail: with other circulatory complications Diabetes mellitus complication status: with circulatory complication Diabetes mellitus penitentiary insulin use: with long lines operator use Diabetes mellitus type: type 2 ESRD (end stage renal disease) N18.6 Hepatic cirrhosis, unspecified hepatic cirrhosis type, unspecified whether ascites present K74.60 Ascites presence: unspecified Hepatic cirrhosis type: unspecified hepatic cirrhosis
--- NOTE | 2024-12-02 15:19 | PC.NURSE ---
Patient discharged to home. Instruction provided regarding follow up needs, new medications with changes and site care. Patient verbalized complete understanding. New medication received via [id number] prior to discharge. patient taken by wheelchair to private vehicle. Son to provide transportation.
== END 2024-12-02 15:24 | disposition home or self-care (01) | DRG 321 ==
LOC: ER 17:53 → MEDSURG 17:59 → CSU 11-25 10:58
PROVIDERS: Internal Medicine Cardiovascular Disease; Internal Medicine Nephrology; Admitting Provider Family Medicine; Emergency Provider Emergency Medicine; PCP Nurse Practitioner; Visit Provider Family Medicine
PROC: 027136Z Dilation of Coronary Artery, Two Arteries with Three Drug-eluting Intraluminal Devices, Percutaneous Approach (ICD-10-PCS; principal; 2024-11-30 08:30)
PROC: 027136Z Dilation of Coronary Artery, Two Arteries with Three Drug-eluting Intraluminal Devices, Percutaneous Approach (ICD-10-PCS; 2024-11-30 08:30)
PROC: 027034Z Dilation of Coronary Artery, One Artery with Drug-eluting Intraluminal Device, Percutaneous Approach (ICD-10-PCS; principal; 2024-12-01 13:00)
DX: I21.4 Non-ST elevation (NSTEMI) myocardial infarction (principal); I50.33 Acute on chronic diastolic (congestive) heart failure; N18.6 End stage renal disease; J96.01 Acute respiratory failure with hypoxia; J18.9 Pneumonia, unspecified organism; I13.2 Hypertensive heart and chronic kidney disease with heart failure and with stage 5 chronic kidney disease, or end stage renal disease; R04.2 Hemoptysis; B40.9 Blastomycosis, unspecified; J44.1 Chronic obstructive pulmonary disease with (acute) exacerbation; J44.0 Chronic obstructive pulmonary disease with (acute) lower respiratory infection; E11.22 Type 2 diabetes mellitus with diabetic chronic kidney disease; E11.65 Type 2 diabetes mellitus with hyperglycemia; Z99.2 Dependence on renal dialysis; E11.649 Type 2 diabetes mellitus with hypoglycemia without coma; K74.60 Unspecified cirrhosis of liver; D69.6 Thrombocytopenia, unspecified; Z79.4 Long term (current) use of insulin; Z79.891 Long term (current) use of opiate analgesic; Z79.82 Long term (current) use of aspirin; Z79.02 Long term (current) use of antithrombotics/antiplatelets; G47.33 Obstructive sleep apnea (adult) (pediatric)
CPT/HCPCS: 36415; 36416; 70450; 71045; 71275; 74018; 80048; 80053; 81001; 82306; 82310; 82728; 82962; 83540; 83550; 83605; 83735; 83880; 83883; 83970; 84100; 84145; 84155; 84165; 84443; 84484; 85007; 85025; 85347; 85610; 85730; 86140; 86334; 86706; 86803; 87040; 87070; 87205; 87340; 87637; 90935; 93005; 93308; 93454; 94640; 94760; 96365; 96367; 96372; 96374; 96375; 96376; 99152; 99153; 99285; C1725; C1760; C1769; C1874; C1887; C1894; C9600; C9601; G0269; J0360; J0456; J0461; J0696; J1200; J1644; J1650; J1815; J2250; J2270; J2405; J2470; J2916; J2919; J3010; J3490; J7030; J7050; J7512; J7613; J7626; J9999; Q0144; Q0163; Q3014; Q5105; Q9967

== ENCOUNTER 2024-12-06 16:42 | Emergency (ER) | payer BC, MEDICAID, SELFPAY ==
[2024-12-06] VITALS (9 sets, daily range): BP systolic 129–169; BP diastolic 71–90; PULSE 59–79; TEMP 36.9; O2SAT 93–99; BMI 33.0
--- OUTSIDE RECORDS SUMMARY | 2024-12-06 16:46 | XMS_ITS | Encounter Summary ---
Author Organization [facility] Address [address] [place] [address] Care Team Providers Care Sales Correspondence Clerk Name Role Phone Unavailable Primary Care Provider Unavailabl e Reason for Referral * Radiology Services (Routine) - Authorized Specialty Diagnoses / Procedures Referred By Mark t Referred To Contact Diagnoses Stage 4 chronic kidney disease (CMS/HCC) Procedures US DUPLEX PREOP VESS ASSESS BILAT Anna Trammell MD [address] [address] Phone: tel: fax: [facility] Pre-Registration [place] CALL TO MAKE APPOINTMENT ONLY [address] [place] [address] Phone: tel: fax: Referral ID Status Reason Start Date Expiration Date V isits Requested Visits Authorized [id number] Authorized 11/30/2024 12/31/2025 1 1 Encounter Details Date Type Department Care Team (Late st Contact Info) Description 11/30/[address] [facility] Vascular Surgery [place] [address] [facility] [address] [place] [address] Anna Trammell MD [address] [facility] [address] [place] [address] Stage 4 chronic kidney disease (CMS/HCC) (Primary Dx) Social History Tobacco Use Types Packs/Day Years [...] Upcoming Encounters Date Type Department Care Team (Late st Contact Info) Description 12/11/2024 8:00 AM CDT Office Visit [facility] Family Medicine [place] [address] [phone] Paty Zepeda MD [address] [phone] 01/19/2025 10:00 AM CDT Ancillary Procedure [facility] [place] [address] [place] [address] [place] [phone] Anna Trammell MD [facility] [address] [place] [address] [address] 01/19/2025 11:00 AM CDT Office Visit [facility] Vascular Surgery [address] [place] [phone] Anna Trammell MD [facility] [address] [place] [address] [place] [phone] Scheduled Orders Name Type Priority Associated Diagnoses Orde r Schedule US DUPLEX PREOP VESS ASSESS BILAT Imaging Routine Stage 4 chronic kidney disease (CMS/HCC) Expected: 12/01/2024, Expires: 03/02/2025 documented as of this encounter Visit Diagnoses Diagnosis Stage 4 chronic kidney disease (CMS/HCC)- Primary documented in this encounter
--- OUTSIDE RECORDS SUMMARY | 2024-12-06 16:46 | XMS_ITS | Clinical Summary ---
Author Organization [facility] Poncho Lerma Address [address] [place] [address] Phone Care Team Providers Care Lens Fabricating Machine Tender Name Role Phone Unavailable Primary Care Provider [...] (1 of 2) 2019 INFLUENZA VACCINE (#1) 2024
--- OUTSIDE RECORDS SUMMARY | 2024-12-06 16:46 | XMS_ITS | Encounter Summary ---
Author Organization [facility] Address [address] [place] [address] Care Team Providers Care Loin Puller Name Role Phone Unavailable Primary Care Provider Unavailabl e Reason for Visit * Reason Onset Date Comments Referral 12/03/2024 Encounter Details Date Type Department Care Team (Late st Contact Info) Description 12/03/2024 Telephone [facility] [place] [address] [facility] [address] [place] [address] Anna Trammell MD [address] [facility] [address] [place] [address] Referral Social History Tobacco Use Types Packs/Day Years [...] encounter Miscellaneous Notes * Telephone Encounter - Chela Gomez - 12/03/2024 1:52 PM CDT Left VM for patient. IF pt calls back, please confirm date/time. I will let his HD unit know. documented in this encounter Plan of Treatment Upcoming Encounters Date Type Department Care Team (Late st Contact Info) Description 12/11/2024 8:00 AM CDT Office Visit [facility] [place] [address] [phone] Paty Zepeda MD [address] [phone] 01/19/2025 10:00 AM CDT Ancillary Procedure [facility] [place] [address] [place] [phone] Anna Trammell MD [address] [phone] 01/19/2025 11:00 AM CDT Office Visit [facility] [place] [address] [place] [phone] Anna Trammell MD [address] [place] [address] [place] [phone] documented as of this encounter Visit Diagnoses Not on filedocumented in this encounter
--- OUTSIDE RECORDS SUMMARY | 2024-12-06 16:46 | XMS_ITS | Clinical Summary ---
Author Organization [facility] Address [address] [place] [address] Phone Care Team Providers Care Smelter Liner Name Role Phone Unavailable Primary Care Provider [...] meals 100 Each 10/18/19 25 Active Insulin [place], Disposable, (Comfort EZ Pen [place]) 32 gauge x 5/32 Needle Inject insulin [...] Encounters Date Type Department Care Team Description 12/03/2024 Telephone [facility] [place] [address] [place] [phone] Anna Trammell MD Referral 11/30/2024 Orders Only [facility] [place] [address] [place] [phone] Anna Trammell MD Stage 4 chronic kidney disease (CMS/HCC) (Primary Dx) 11/25/2024 Abstract [facility] [place] [address] [place] [phone] Provider, Abstract 11/18/2024 Prep for Surgery [facility] [address] [place] [phone] Paty Vazquez DO Heart failure, unspecified HF chronicity, unspecified heart failure type (CMS/HCC) (Primary Dx); NSTEMI (non-ST elevated myocardial infarction) (CMS/HCC); 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 ( ) 10/15/2024 External Device Data STL ABSTRACTION Provider, Abstract 10/14/2024 External Device Data STL ABSTRACTION Provider, Abstract 10/14/2024 External Device Data STL ABSTRACTION Provider, Abstract 10/14/2024 External Device Data STL ABSTRACTION Provider, Abstract 10/13/2024 External Device Data STL ABSTRACTION Provider, Abstract 10/07/2024 11:32 PM CDT - 10/17/2024 4:56 PM CDT Hospital Encounter [facility] 4B Cardiac [address] [place] [address] Jaren Recinos MD Abbas, MD Kyleigh Cagle, MD Orlando Mcgrath, Moiz Oden MD Acute on chronic diastolic congestive heart failure (CMS/HCC) Discharge Disposition: Home or Self Care 10/07/2024 [...] Description 12/11/2024 8:00 AM CDT Office Visit [facility] [place] [address] [phone] Paty Zepeda MD [address] [address] 01/19/2025 10:00 AM CDT Ancillary Procedure [facility] [place] [address] [place] [address] Anna Trammell MD [address] [place] [address] 01/19/2025 11:00 AM CDT Office Visit [facility] [place] [address] [place] [address] Anna Trammell MD [address] [place] [address] Health Maintenance Due Date Last Done Comments DIABETES ANNUAL RETINAL EXAM 1987 DIABETES MICROALBUMIN ANNUAL SCREEN 1987 LDL CHOLESTEROL ANNUAL 1987 HEPATITIS B VACCINES (1 of 3 - 19+ 3-dose series) 1988 Preventative Visit-Managed Medicaid 1988 FIT-DNA Q 3 years 2014 FIT/FOBT Q 1 year 2014 Flex Sig/CT Colonography Q 5 years 2014 ZOSTER VACCINE (1 of 2) 2019 DIABETES ANNUAL FOOT EXAM 10/18/2023 10/17/2022 INFLUENZA VACCINE (#1) 2024 DIABETES HBA1C Q 6 MONTHS 04/19/2025 10/17/2024, DTAP/TDAP/TD VACCINES (2 - T d or Tdap) 01/23/2029 01/23/2019 COLORECTAL SCREENING 07/30/2034 07/30/2024, 07/30/2024, 07/03/2022 Colorectal Cancer Screening 07/30/2034 Medical Devices Implanted Type Area Slice Plug Cutter Operator Helper Device Identifier Shelf Expiration Date Model / Serial / Lot Cath Dialysis Glidepath 14.5fr 23cm [facility] [id number] - [id number] Implanted:Qty: 1 on 10/13/2024 by Wen Evans MD at [facility] Catheter Right: Chest Wall BARD ASHLEY VASC [id number] 02/23/2026 [id number] / / [id number] Procedures Procedure Name Priority Date/Time Associated Diagnosis [...] TROPONIN 6 HR, 5TH GEN Timed Study 5 5:59 AM CDT IRON, TIBC, AND PERCENT [...] mg/dL 10/17/2024 11:17 AM CDT [facility] SPECIMEN SOURCE, GLUCOSE POC Capillary 10/17/2024 11:17 AM CDT [facility] Blood, whole 10/17/2024 11:1 7 AM CDT 10/17/2024 11:39 AM CDT us Moiz Perry MD POINT OF CARE TESTING Final Result [facility] CLIA # [id number] [address] [address] [place] [address] * (ABNORMAL) CBC WITH DIFFERENTIAL (10/17/2024 7:08 AM CDT) Only the most recent of7 resultswithin the time period is included. Pathologist [facility] WBC 7.3 4.8 - 10.8 K/uL 10/17/2024 7:18 AM T [facility] RBC 2.78(L) 4.60 - 6.20 M/uL 10/17/2024 7:18 AM CDT [facility] HEMOGLOBIN 7.5(L) 14.0 - 18.0 g/dL 10/17/2024 7:18 AM CDT [facility] HEMATOCRIT 25.0(L) 41.0 - 53.0 % 10/17/2024 7:18 AM CDT [facility] MCV 89.9 84.0 - 103.0 fL 10/17/2024 7:18 AM CDT [facility] MCH 27.0 27.0 - 34.0 pg 10/17/2024 7:18 AM CDT [facility] MCHC 30.0 30.0 - 35.0 g/dL 10/17/2024 7:18 AM CDT [facility] PLATELETS 143 140 - 440 K/uL 10/17/2024 7:18 AM CDT [facility] MPV 10.5 8.9 - 12.8 fL 10/17/2024 7:18 AM CDT [facility] RDW 15.8(H) 11.0 - 14.5 % 10/17/2024 7:18 AM [facility] RDW-STDEV 52.1 37.0 - 54.0 fL 10/17/2024 7:18 AM CDT [facility] NEUTROPHILS 69 42 - 75 % 10/17/2024 7:18 AM CDT [facility] LYMPHOCYTES 22(L) 24 - 44 % 10/17/2024 7:18 AM CDT [facility] MONOCYTES 7 2 - 10 % 10/17/2024 7:18 AM CDT [facility] EOSINOPHILS 2 0 - 7 % 10/17/2024 7:18 AM CDT [facility] BASOPHILS 0 0 - 1 % 10/17/2024 7:18 AM CDT [facility] IMMATURE GRANULOCYTES 1 0 - 2 % 10/17/2024 7:18 AM CDT [facility] NEUTROPHIL ABSOLUTE 5.02 2.00 - 8.00 K/uL 10/17/2024 7:18 AM CDT [facility] LYMPHOCYTE ABSOLUTE 1.60 1.20 - 4.00 K/uL 10/17/2024 7:18 AM CDT [facility] MONOCYTE ABSOLUTE 0.47 0.10 - 0.60 K/uL 10/17/2024 7:18 AM CDT [facility] EOSINOPHIL ABSOLUTE 0.11 0.00 - 0.70 K/uL 10/17/2024 7:18 AM CDT [facility] BASOPHILS ABSOLUTE 0.02 0.00 - 0.20 K/uL 10/17/2024 7:18 AM CDT [facility] IMMATURE GRANULOCYTES ABSOLUTE 0.06 0.00 - 0.10 K/uL 10/17/2024 7:18 AM CDT [facility] SMEAR REVIEWED: NA - Not Applicable 10/17/2024 7:18 AM CDT [facility] Blood Venipuncture / Unknown 10/17/2024 7:08 AM CDT 10/17/2024 7:13 AM CDT us Efren Perez MD HEMATOLOGY ORDERABLES Final Result [facility] CLIA # [id number] [address] [address] [place], [place] [address] * (ABNORMAL) HEMOGLOBIN A1C (10/17/2024 7:08 AM CDT) HEMOGLOBIN A1C 7.1(H) <=5.6 % 10/18/2024 8:48 AM CDT [facility] EST. AVG GLUCOSE, A1C 157 mg/dL 10/18/2024 8:48 AM CDT [facility] Blood Venipuncture / Unknown 10/17/2024 7:08 AM CDT 10/17/2024 7:13 AM CDT Narrative [facility] - 10/18/2024 8:48 AM CDT HGB A1C INTERPRETATION NORMAL: <5.7% PRE-DIABETES: 5.7 - 6.4% DIABETES: 6.5% OR GREATER Moiz Perry MD CHEMISTRY ORDERABLES Final R esult Performing Organization Address City/[facility]/ZIP Co de Phone Number [facility] CLIA # [id number] [facility] [address] [place], [place] [id number] * MAGNESIUM LEVEL (10/17/2024 2:19 AM CDT) Only the most recent of9 resultswithin the time period is included. MAGNESIUM 1.9 1.6 - 2.6 mg/dL 10/17/2024 3:02 AM CDT [facility] Blood Venipuncture / Unknown 10/17/2024 2:19 AM CDT 10/17/2024 2:29 AM CDT us Caitlyn IBRAHIM CHEMISTRY ORDERABLES Final Result Performing Organization Address City/[facility]/ZIP Co de Phone Number [facility] CLIA # [id number] [address] [address] [place], [place] [address] * (ABNORMAL) RENAL FUNCTION PANEL (10/17/2024 2:19 AM CDT) Only the most recent of9 resultswithin the time period is included. [facility] SODIUM 137 136 - 145 mmol/L 10/17/2024 3:02 AM [facility] POTASSIUM 3.9 3.5 - 5.1 mmol/L 10/17/2024 3:02 AM [facility] CHLORIDE 101 98 - 107 mmol/L 10/17/2024 3:02 AM [facility] CO2 23 22 - 29 mmol/L 10/17/2024 3:02 AM [facility] CALCIUM 8.2(L) 8.6 - 10.0 mg/dL 10/17/2024 3:02 AM [facility] BUN 29(H) 6 - 20 mg/dL 10/17/2024 3:02 AM [facility] CREATININE 2.22(H) 0.67 - 1.17 mg/dL 10/17/2024 3:02 AM [facility] GLUCOSE 154(H) 74 - 99 mg/dL 10/17/2024 3:02 AM [facility] ALBUMIN 3.0(L) 3.5 - 5.2 g/dL 10/17/2024 3:02 AM [facility] PHOSPHORUS 2.3(L) 2.5 - 4.5 mg/dL 10/17/2024 3:02 AM [facility] GFR 34(L) >=60 mL/min/1. 73 sq meter 10/17/2024 3:02 AM [facility] Comment:eGFR calculated with 2020 CKD-EPI equation. Vegetarian diet, extremely high or low muscle mass, and may affect results. Cystatin C with Glomerular Filtration Rate is a suitable alternative for these patients. ANION GAP 13 9 - 20 mmol/L 10/17/2024 3:02 AM [facility] Blood Venipuncture / Unknown 10/17/2024 2:19 AM CDT 10/17/2024 2:29 AM T Caitlyn Doty UNIT TENDER CHEMISTRY ORDERABLES Final Result Performing Organization Address [facility]/ZIP Co de Phone Number [facility] CLIA # [id number] [address] [place] [address] * PHOSPHORUS (10/14/2024 5:28 AM CDT) PHOSPHORUS 4.0 2.5 - 4.5 mg/dL 10/14/2024 6:30 AM CDT [facility] Blood Venipuncture / Unknown 10/14/2024 5:28 AM CDT 10/14/2024 5:48 AM CDT Caitlyn Doty [facility] CHEMISTRY ORDERABLES Final Result Performing Organization Address [facility] Co de Phone Number [facility] CLIA # [id number] [address] [place] [address] * (ABNORMAL) COMPREHENSIVE METABOLIC PANEL (10/14/2024 5:28 AM CDT) SODIUM 134(L) 136 - 145 mmol/L 10/14/2024 6:30 AM CDT [facility] POTASSIUM 4.3 3.5 - 5.1 mmol/L 10/14/2024 6:30 AM CDT [facility] CHLORIDE 96(L) 98 - 107 mmol/L 10/14/2024 6:30 AM CDT [facility] CO2 25 22 - 29 mmol/L 10/14/2024 6:30 AM CDT [facility] CALCIUM 8.4(L) 8.6 - 10.0 mg/dL 10/14/2024 6:30 AM T [facility] BUN 66(H) 6 - 20 mg/dL 10/14/2024 6:30 AM T [facility] CREATININE 4.07(H) 0.67 - 1.17 mg/dL 10/14/2024 6:30 AM [facility] GLUCOSE 218(H) 74 - 99 mg/dL 10/14/2024 6:30 AM [facility] TOTAL PROTEIN 7.3 6.4 - 8.3 g/dL 10/14/2024 6:30 AM [facility] ALBUMIN 3.1(L) 3.5 - 5.2 g/dL 10/14/2024 6:30 AM [facility] BILIRUBIN TOTAL 0.5 0.0 - 1.0 mg/dL 10/14/2024 6:30 AM [facility] ALKALINE PHOSPHATASE 203(H) 40 - 129 U/L 10/14/2024 6:30 AM [facility] AST 19 10 - 50 U/L 10/14/2024 6:30 AM [facility] ALT 6 <=50 U/L 10/14/2024 6:30 AM [facility] GFR 16(L) >=60 mL/min/1. 73 sq meter 10/14/2024 6:30 AM [facility] Comment:eGFR calculated with 2020 CKD-EPI equation. Vegetarian diet, extremely high or low muscle mass, and may affect results. Cystatin C with Glomerular Filtration Rate is a suitable alternative for these patients. ANION GAP 13 9 - 20 mmol/L 10/14/2024 6:30 AM [facility] Blood Venipuncture / Unknown 10/14/2024 5:28 AM CDT 10/14/2024 5:48 AM CDT us Moiz Perry MD CHEMISTRY ORDERABLES Final R esult [facility] CLIA # [id number] [address] [place] [id number] * (ABNORMAL) BASIC METABOLIC PANEL (10/13/2024 6:29 PM CDT) Only the most recent of5 resultswithin the time period is included. Pathologist [facility] SODIUM 134(L) 136 - 145 mmol/L 10/13/2024 7:26 PM [facility] POTASSIUM 4.3 3.5 - 5.1 mmol/L 10/13/2024 7:26 PM [facility] CHLORIDE 95(L) 98 - 107 mmol/L 10/13/2024 7:26 PM [facility] CO2 25 22 - 29 mmol/L 10/13/2024 7:26 PM [facility] CALCIUM 8.5(L) 8.6 - 10.0 mg/dL 10/13/2024 7:26 PM [facility] BUN 61(H) 6 - 20 mg/dL 10/13/2024 7:26 PM [facility] CREATININE 4.23(H) 0.67 - 1.17 mg/dL 10/13/2024 7:26 PM [facility] GLUCOSE 214(H) 74 - 99 mg/dL 10/13/2024 7:26 PM [facility] GFR 16(L) >=60 mL/min/1. 73 sq meter 10/13/2024 7:26 PM [facility] Comment:eGFR calculated with 2020 CKD-EPI equation. Vegetarian diet, extremely high or low muscle mass, and may affect results. Cystatin C with Glomerular Filtration Rate is a suitable alternative for these patients. ANION GAP 14 9 - 20 mmol/L 10/13/2024 7:26 PM [facility] Blood Venipuncture / Unknown 10/13/2024 6:29 PM CDT 10/13/2024 6:50 PM CDT Caitlyn Doty UNIT TENDER CHEMISTRY ORDERABLES Final Result [facility] CLIA # [id number] [address] [place] [address] * IR VENOUS ACCESS (10/13/2024 9:02 AM [...] dialysis. Diagnosis: NSTEMI (non-ST elevated myocardial infarction) ([facility]); Hypervolemia, unspecified hypervolemia type. Comparisons: None The [...] created for the patient record. A 5 Jordanian dilator and J-wire were placed. Lidocaine with [...] created for the patient record. A 5 Jordanian dilator and J-wire were placed. Lidocaine with [...] of perisplenic ascites us Efren Perez MD US ORDERABLES Final Result * (ABNORMAL) PROTIME-INR (10/12/2024 10:24 AM CDT) Only the most recent of2 resultswithin the time period is included. PROTIME 16.4(H) 12.7 - 14.9 Seconds 10/12/2024 10:47 AM CDT [facility] INR 1.3(H) 0.8 - 1.2 10/12/2024 10:47 AM CDT [facility] Blood Venipuncture / Unknown 10/12/2024 10:24 AM CDT 10/12/2024 10:33 AM CDT Narrative [facility] - 10/12/2024 10:47 AM CDT Expected Values for INR: DVT/PE Goal INR 2.5; range 2.0 - 3.0 Valve Replacement Tissue Goal INR 2.5; range 2.0 - 3.0 Valve Replacement Mechanical Goal INR 3.0; range 2.5 - 3.5 POST-ND Goal INR 2.5; range 2.0 - 3.0 or Goal INR 3.0; range 2.5 - 3.5 Atrial Fibrillation Goal INR 2.5; range 2.0 - 3.0 Ischemic Stroke Goal INR 2.5; range 2.0 - 3.0 us Efren Perez MD HEMATOLOGY ORDERABLES Final Result [facility] # [id number] [address] [place] [address] * ACUTE HEPATITIS PANEL (10/12/2024 10:23 AM CDT) HEPATITIS B SURFACE AG NON-REACT LITO Non-react lito 10/12/2024 12:34 PM T [facility] Comment:A non-reactive test result does not exclude the possibility of exposure to or infection with hepatitis B. HEPATITIS B CORE IGM NON-REACT LITO Non-react lito 10/12/2024 12:34 PM T [facility] Comment:IgM antibodies to HB c were not detected; does not exclude the possibility of exposure to HBV. HEPATITIS A IGM Non-react lito Non-react lito 10/12/2024 12:34 PM CDT [facility] Comment:A negative test resu lt does not exclude the possibility of exposure to Hepatitis A virus. HEPATITIS C AB NON-REACT LITO Non-react lito 10/12/2024 12:34 PM CDT [facility] Comment:Antibodies to HCV we re not detected, does not exclude the possibility of exposure to HCV. Blood Venipuncture / Unknown 10/12/2024 10:23 AM CDT 10/12/2024 10:38 AM CDT Efren Perez MD CHEMISTRY ORDERABLES Final R esult Performing Organization Address [facility] Co de Phone Number [facility] CLIA # [id number] [address] [place] [address] * IMMUNOFIXATION (10/12/2024 6:03 AM CDT) Pathologist [facility] IMMUNOFIXATION INTERP See Interpretation Below 10/12/2024 3:11 PM CDT [facility] Comment: Normal polyclonal immunoglobulins. Interpreted by: Tiffanie Laura MD Blood Venipuncture / Unknown 10/12/2024 6:03 AM CDT 10/12/2024 6:24 AM CDT Efren Perez MD CHEMISTRY ORDERABLES Final R esult Performing Organization Address [facility] de Phone Number [facility] CLIA # [id number] [address] [place] [address] * (ABNORMAL) PROTEIN ELECTROPHORESIS W/REFLEX,SERUM (10/12/2024 6:03 AM CDT) [facility] TOTAL PROTEIN 6.9 6.4 - 8.3 g/dL 10/12/2024 3:10 PM CDT [facility] ALBUMIN SPE 2.83(L) 3.50 - 5.20 g/dL 10/12/2024 3:10 PM CDT [facility] ALPHA 1 GLOBULIN SPE 0.51(H) 0.21 - 0.45 g/dL 10/12/2024 3:10 PM CDT [facility] ALPHA 2 GLOBULIN SPE 0.95 0.50 - 1.01 g/dL 10/12/2024 3:10 PM CDT [facility] BETA GLOBULIN 0.99 0.60 - 1.06 g/dL 10/12/2024 3:10 PM CDT [facility] GAMMA GLOBULIN 1.58(H) 0.60 - 1.33 g/dL 10/12/2024 3:10 PM CDT [facility] SPE INTERP See Interpretation Below 10/12/2024 3:10 PM CDT [facility] Comment: Immunofixation was reflexed in order to separate the beta fractions. No monoclonal protein band identified. Interpreted by: Tiffanie Laura MD Blood Venipuncture / Unknown 10/12/2024 6:03 AM CDT 10/12/2024 6:24 AM CDT Narrative [facility] - 10/12/2024 3:10 PM CDT Immunofixation ordered at [facility] per policy per pathologist. us Efren Perez MD CHEMISTRY ORDERABLES Final R esult [facility] CLIA # [id number] [address] [place] [address] * (ABNORMAL) BRAIN NATRIURETIC PEPTIDE, BNP OR PROBNP (10/12/2024 6:03 AM CDT) Only the most recent of2 resultswithin the time period is included. PROBNP, N TERMINAL 19,441(H) 0 - 125 pg/mL 10/12/2024 7:12 AM CDT [facility] Comment: INTERPRETIVE COMMENT based on diagnosis: Diagnostic [...] ORDERABLES Final R esult Performing Organization Address [facility] Co de Phone Number [facility] CLIA # [id number] [address] [address] * EXTRA TUBE (URINE MELENDEZ) (10/08/2024 7:39 PM CDT) Urine URINE SPECIMEN OBTAINED BY CLEAN CATCH PROCEDURE / Unknown Collection / Unknown 10/08/2024 7:39 PM CDT 10/08/2024 7:39 PM CDT Caitlyn FARLEYP URINE ORDERABLES Final Resu lt Performing Organization Address [facility] Co de Phone Number [facility] CLIA # [id number] [address] [address] * SODIUM, RANDOM URINE (10/08/2024 7:39 PM CDT) SODIUM, URINE 117 mmol/L 10/08/2024 8:32 PM CDT [facility] [employer] [facility] Comment:Reference range not established Urine URINE SPECIMEN OBTAINED BY CLEAN CATCH PROCEDURE / Unknown Collection / Unknown 10/08/2024 7:39 PM CDT 10/08/2024 7:39 PM CDT Caitlyn Doty UNIT TENDER URINE ORDERABLES Final Resu lt Performing Organization Address [facility] Co de Phone Number [facility] CLIA # [id number] [address] [place] [address] * (ABNORMAL) PROTEIN/CREATININE RATIO, URINE (10/08/2024 7:39 PM CDT) PROTEIN CONCENTRATION 37(H) 0 - 20 mg/dL 10/08/2024 8:32 PM CDT [facility] CREATININE, URINE 22.6(L) 40.0 - 278.0 mg/dL 10/08/2024 8:32 PM CDT [facility] Comment:Reference Range vari es with fluid intake and diet. PROTEIN/CREAT RATIO, URINE 1.64(H) 0.00 - 0.19 mg/mg Creatinine 10/08/2024 8:32 PM CDT [facility] Urine URINE SPECIMEN OBTAINED BY CLEAN CATCH PROCEDURE / Unknown Collection / Unknown 10/08/2024 7:39 PM CDT 10/08/2024 7:39 PM CDT Caitlyn Doty UNIT TENDER URINE ORDERABLES Final Resu lt Performing Organization Address [facility] Co de Phone Number [facility] CLIA # [id number] [address] [place] [phone] * (ABNORMAL) URINALYSIS WITH REFLEX MICROSCOPIC (10/08/2024 7:39 PM CDT) COLOR UA Colorless(A ) Pale to Dark Yellow 10/08/2024 7:42 PM CDT [facility] CLARITY UA Clear Clear 10/08/2024 7:42 PM CDT [facility] SPECIFIC GRAVITY UA 1.010 1.003 - 1.035 10/08/2024 7:42 PM CDT [facility] PH UA 6.5 5.0 - 8.0 10/08/2024 7:42 PM CDT [facility] LEUKOCYTE ESTERASE UA Negative Negative 10/08/2024 7:42 PM CDT [facility] NITRITE UA Negative Negative 10/08/2024 7:42 PM CDT [facility] PROTEIN UA Trace(A) Negative 10/08/2024 7:42 PM CDT [facility] GLUCOSE UA 1+(A) Negative 10/08/2024 7:42 PM CDT [facility] KETONES UA Negative Negative 10/08/2024 7:42 PM CDT [facility] UROBILINOGEN UA <2.0 <2.0 mg/dL 7:42 PM CDT [facility] BILIRUBIN UA Negative Negative 10/08/2024 7:42 PM CDT [facility] BLOOD UA Negative Negative 10/08/2024 7:42 PM CDT [facility] Urine URINE SPECIMEN OBTAINED BY CLEAN CATCH PROCEDURE / Unknown Collection / Unknown 10/08/2024 7:39 PM CDT 10/08/2024 7:39 PM CDT us Caitlyn Doty UNIT TENDER URINE ORDERABLES Final Resu lt [facility] CLIA # [id number] [address] [place] [address] [place], [place] [id number] * UNFRACTIONATED HEPARIN MONITORING (10/08/2024 1:59 PM CDT) Only the most recent of3 resultswithin the time period is included. ANTI-XA UNFRAC HEP 0.21 See Interpretation IU/mL 10/08/2024 2:26 PM CDT [facility] Blood Venipuncture / Unknown 10/08/2024 1:59 PM CDT 10/08/2024 2:05 PM CDT Narrative [facility] - 10/08/2024 2:26 PM CDT Therapeutic Range: PT/DVT Heparin Protocol 0.3 - 0.7 IU/ml Cardiac Heparin Protocol 0.3 - 0.6 IU/ml The reference range for this test is specific to the anticoagulant and is not appropriate for monitoring patients on a DOAC protocol. us Moiz Perry MD HEMATOLOGY ORDERABLES Final Result [facility] CLIA # [id number] [address] [place] [address] [id number] * ECHO COMPLETE - CONTRAST AND STRAIN IF INDICATED (10/08/2024 10:09 AM CDT) EJECTION FRACTION 55 INTERFACE SYSTEM 10/08/2024 9:24 AM CDT Narrative INTERFACE SYSTEM - 10/08/2024 10:41 AM CDT [facility] Echocardiography Laboratory [address] [place] [id number] Transthoracic Echocardiography Patient: Skyler Hernadez Study ID: ECHO COMPLETE Gender: Mindy : 1970 Age: 54 Room: [facility] Study Date: 10/08/2024 Pt Status: Inpatient Study Time: 09:24:22 AM [facility] #: [id number] Ordering:Nupur Woodward [employer] Associate: Chad Valentino [facility] Indications and History: Hypotension or Hemodynamic Instability; [...] (H) zackery values outside specified reference range. [facility] Echo Labs are accredited with the [facility] Accreditation Commission - Echocardiography. Prepared and Electronically Authenticated Familia Reed MD Confirmed 10/08/2024 10:41 Procedure Note Familia Reed MD - 10/08/2024 [facility] Services Echocardiography Laboratory [address] [place] [id number] Transthoracic Echocardiography Patient: Skyler Hernadez Study ID: [id number] Gender: Mindy : 1970 Age: 54 Room: [facility] Study Date: 10/08/2024 Pt Status: Inpatient Study Time: 09:24:22 AM CSN #: [id number] Ordering:Nupur Woodward Real Estate Associate: Chad Valentino [facility] Indications and History: Hypotension or Hemodynamic Instability;Hypotension [...] contracta width 3.2cm Area 3.6 cm^2 Peak parchi, S 114.08 cm/sec Tricuspid valve Value VTI, [...] (H) zackery values outside specified reference range. [facility] Echo Labs are accredited with theIntersocietal Accreditation Commission - Echocardiography. Prepared and Electronically Authenticated Familia Reed MD Confirmed 10/08/2024 10:41 us Nupur Woodward UNIT TENDER US ORDERABLES Final Resu lt INTERFACE SYSTEM Refer to clinic/hospital department * (ABNORMAL) TROPONIN 6 HR, 5TH GEN (10/08/2024 5:59 AM CDT) TROPONIN T, 6 HR 5TH GEN 351(HH) <=15 ng/L 10/08/2024 6:56 AM CDT [facility] [employer] [place] 6HR TROPONIN T % -17 See Interp. % 10/08/2024 6:56 AM CDT [facility] Blood Venipuncture / Unknown 10/08/2024 5:59 AM CDT 10/08/2024 6:09 AM CDT [facility] [employer] [facility] - 10/08/2024 6:56 AM CDT Troponin elevated. Delay in collection of timed specimen beyond recommended collection interval. Results must be interpreted in clinical context. Delta not changing. us Jonathon Isaac TELEGRAPH DISPATCHER CHEMISTRY ORDERABLES Final R esult Performing Organization Address City/[facility]/ZIP Co de Phone Number [facility] CLIA # [id number] [address] [place] [address] * (ABNORMAL) TROPONIN 2 HR, 5TH GEN (10/08/2024 3:41 AM CDT) TROPONIN T, 2 HR 5TH GEN 363(HH) <=15 ng/L 10/08/2024 4:18 AM CDT [facility] [employer] [facility] [place] 2HR TROPONIN T % -14 See Interp. % 10/08/2024 4:18 AM CDT [facility] [employer] [facility] Blood Venipuncture / Unknown 10/08/2024 3:41 AM CDT 10/08/2024 3:47 AM CDT [facility] [employer] [facility] - 10/08/2024 4:18 AM CDT Troponin elevated. Delay in collection of timed specimen beyond recommended collection interval. Results must be interpreted in clinical context. Delta not changing. Jonathon Isaac APRN CHEMISTRY ORDERABLES Final R esult Performing Organization Address [facility] de Phone Number [facility] CLIA # [id number] [address] [address] * (ABNORMAL) IRON, TIBC, AND PERCENT SATURATION (10/08/2024 3:41 AM CDT) IRON 23(L) 59 - 158 ug/dL 10/08/2024 5:07 AM CDT [facility] TIBC 190(L) 250 - 450 ug/dL 10/08/2024 5:07 AM CDT [facility] IRON % SATURATION 12(L) 15 - 60 % 10/08/2024 5:07 AM CDT [facility] Blood Venipuncture / Unknown 10/08/2024 3:41 AM CDT 10/08/2024 3:47 AM CDT Hernan Aleman MD CHEMISTRY ORDERABLES Fi nal Result Performing Organization Address [facility] de Phone Number [facility] CLIA # [id number] [facility] [address] * FERRITIN (10/08/2024 3:41 AM CDT) FERRITIN 189.7 30.0 - 400.0 ng/mL 10/08/2024 5:03 AM CDT [facility] Blood Venipuncture / Unknown 10/08/2024 3:41 AM CDT 10/08/2024 3:47 AM CDT Hernan Aleman MD CHEMISTRY ORDERABLES Fi nal Result Performing Organization Address [facility] Co de Phone Number [facility] CLIA # [id number] [address] [place] [address] * PTT (10/08/2024 1:44 AM CDT) PTT 33.1 24.8 - 37.2 seconds 10/08/2024 3:05 AM CDT [facility] Blood Venipuncture / Unknown 10/08/2024 1:44 AM CDT 10/08/2024 1:50 AM CDT [facility] - 10/08/2024 3:05 AM CDT Therapeutic Range: Hi-level PE/DVT heparin protocol 80.1 - 95.0 sec Lo-level PE/DVT heparin protocol 70.1 - 85.0 sec Cardiac Heparin Protocol 70.1 - 100.0 sec us Jaren Recinos MD HEMATOLOGY ORDERABLES Final Result Performing Organization Address [facility] Co de Phone Number [facility] CLIA # [id number] [address] [place] [address] * (ABNORMAL) TROPONIN BASELINE, 5TH GEN (10/07/2024 11:48 PM CDT) TROPONIN T, BASELINE 5TH GEN 423(HH) <=15 ng/L 10/08/2024 12:40 AM CDT [facility] Blood Venipuncture / Unknown 10/07/2024 11:48 PM CDT 10/07/2024 11:51 PM CDT Narrative [facility] [employer] [facility] - 10/08/2024 12:40 AM CDT Troponin elevated. us Jonathon Isaac APRN CHEMISTRY ORDERABLES Final R esult Performing Organization Address City/[facility]/ZIP Co de Phone Number [facility] [employer] [facility] CLIA # [id number] [address] [address] * (ABNORMAL) HEPATIC FUNCTION PANEL (10/07/2024 11:48 PM CDT) [facility] TOTAL PROTEIN 7.9 6.4 - 8.3 g/dL 10/08/2024 12:27 AM CDT [facility] ALBUMIN 3.5 3.5 - 5.2 g/dL 10/08/2024 12:27 AM CDT [facility] BILIRUBIN TOTAL 0.4 0.0 - 1.0 mg/dL 10/08/2024 12:27 AM CDT [facility] BILIRUBIN DIRECT 0.2 0.0 - 0.3 mg/dL 10/08/2024 12:27 AM CDT [facility] ALKALINE PHOSPHATASE 204(H) 40 - 129 U/L 10/08/2024 12:27 AM CDT [facility] AST 23 10 - 50 U/L 10/08/2024 12:27 AM CDT [facility] ALT 8 <=50 U/L 10/08/2024 12:27 AM CDT [facility] Blood Venipuncture / Unknown 10/07/2024 11:48 PM CDT 10/07/2024 11:51 PM CDT us Jaren Recinos MD CHEMISTRY ORDERABLES Final R esult [facility] CLIA # [id number] [address] [address] * XR CHEST PA OR AP 1 [...] pneumothorax. Scoliosis and spondylosis. Postcholecystectomy. us Asa Jamesonbrandie Isaac APRN DIAGNOSTIC IMAGING ORDERABLE S Final Result * EKG 12-LEAD (10/07/2024 9:54 PM CDT) 10/07/2024 9:54 PM CDT Narrative INTERFACE SYSTEM - 10/08/2024 8:07 AM CDT [address] [address] Test Date: 2024-10-07 Pat Name: SKYLER HERNADEZ Department: 11 Room: Gender: Male [employer] Supervisor: [id number] : 1970 Requested By: Order Number: [id number] Reading MD: Lamine Plunkett Measurements Intervals [place] Rate: 90 P: 45 MO: 126 QRS: 78 QRSD: 106 T: -18 QT: 398 QTc: 486 Interpretive Statements Normal sinus rhythm T wave abnormality, consider inferior ischemia Abnormal ECG Electronically Signed On 10-08-2024 8:07:47 CDT by Lamine Plunkett Procedure Note Lamine Plunkett MD - 10/08/[address] [place] [address] Test Date: 2024-10-07 Pat Name: SKYLER HERNADEZ Department: 11 Room: Gender: Male [employer] Supervisor: [id number] : 1970 Requested By: Order Number: [id number] Reading MD: Lamine Plunkett Measurements Intervals [place] Rate: 90 P: 45 MO: 126 QRS: 78 QRSD: 106 T: -18 QT: 398 QTc: 486 Interpretive Statements Normal sinus rhythm T wave abnormality, consider inferior ischemia Abnormal ECG Electronically Signed On 10-08-2024 8:07:47 CDT by Lamine Plunkett Jonathon Jameson Poncho TELEGRAPH DISPATCHER ECG ORDERABLES Final Result INTERFACE SYSTEM Refer to clinic/hospital department from Last [address] [place] [address] [place] [address] MEDICAID RX INFOCROSSING Medicaid Advance Directives For more information, please contact: [phone] * Full Code (Latest Code Status on File) Date Activated Date Inactivated Comments 10/08/2024 1:49 AM 10/17/2024 6:56 PM
--- OUTSIDE RECORDS SUMMARY | 2024-12-06 16:46 | XMS_ITS | Data Portability ---
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 Lab urinalysis , dipstick 2019 Amg - In Office Orders (For Internal Use Only), [address] [facility][1] [place], [address], 0 16:08:15 lipase, serum or plasma 2019 [facility], [address] [place], [address], 0 16:44:19 CBC w/ auto diff 2019 [facility], [address] [place], [address], 0 16:01:14 C-reactive protein, quantitati ve, serum or plasma 2019 [facility], [address] [place], [address], 0 16:44:18 BMP, serum or plasma 2019 [facility], [address] [place], [address], 0 16:44:15 culture, stool [email or web address] [facility], [address] [place], [address], 0 07:12:28 C diff screen, stool, reflex PCR [address] [facility], [address] [place], [address], 0 07:12:28 O&P (ova & parasites) , stool [address] [facility], [address] [place], [address], 0 07:12:28 urinalysis , dipstick 2019 [email or web address] Amg - In Office Orders (For Internal Use Only), [address] [place], [address], 0 15:03:47 Referral pain management referral - ATTN WAYNE New Patient Pt Ph# Pt states he lives in an area with bad signal may not get your call but can leave a message or email him @ [email or web address] Thank you Pt denies injury to his back and he denies completing any physical therapy 2019 martha Bee MD, [address] [facility], [facility] [address], [place], [address], 1 10:11:05 gastroente rologist referral - Dear [...] Thank you for your time! -Ankita Graham CRAB BACKER-C 2019 [email or web address] Edwardo Alberto MD, [address] [facility], [address], [place], [address], 1 10:23:16 urologist referral - Dr Sanches Patient was seeing Dr Quezada but then was told his insurance is out of network and is needing continuati on of care. Thank you 2019 [email or web address] [facility], [address], [address], [place], [address], 1 18:56:41 Procedures colonoscop y procedure (PROC) 2019 [email or web address] [facility] - Surgery Dept - [place], [address] [place], [address], 0 15:25:15 Surgeries None recorded. Imaging None recorded. Medication Orders sumatripta n 50 mg tablet 2020 021 INTERFACE [id number], [address] [place], [address], 1 16:18:16 metoprolol succinate ER 50 mg tablet,ext ended release 24 hr 2020 021 INTERFACE [facility], [address] [place], [address], 1 16:18:16 ketorolac 30 mg/mL (1 mL) injection solution 2019 020 [email or web address] Not available 0 13:41:43 metoprolol succinate ER 25 mg tablet,ext ended release 24 hr 2019 020 [facility], [address] [place], [address], 1 07:37:52 fenofibrat e 54 mg tablet 2019 020 INTERFACE [facility], [address] [place], [address], 0 16:08:18 Ozempic 0.25 mg or 0.5 mg (2 mg/1.5 mL) subcutaneo us pen injector 2019 INTERFACE [facility], [address] [place], [address], 0 16:08:18 Levemir FlexTouch U-100 Insulin 100 unit/mL (3 mL) subcutaneo us pen 2019 [facility], [address] [place], [address], 1 07:32:05 Admelog SoloStar U-100 Insulin lispro 100 unit/mL subcutaneo us pen 2019 INTERFACE [facility], [address] [place], [address], 0 16:08:20 esomeprazo le magnesium 20 mg capsule,de layed release 2019 020 INTERFACE [facility], [address] [place], [address], 0 16:08:20 lisinopril 40 mg tablet 2019 020 INTERFACE [facility], [address] [place], [address], 0 16:08:19 gabapentin 300 mg capsule 2019 020 INTERFACE [facility], [address] [place], [address], 0 16:08:19 hydrocodon e 7.5 mg-acetami nophen 325 mg tablet 2019 020 INTERFACE [facility], [address] [place], [address], 0 16:11:56 Patient TargetsNo targets recorded. Patient Instructions Encounter Date Encounter Id Patient Instructions Last Modified By Organization Details Last Modified Time 04/25/2020 [id number] warts: care instructions rkeeling Not available 04/25/2020 15:31:15 abdominal pain: care instructions rkeeling Not available 04/25/2020 15:31:02 high blood pressure: care instructions rkeeling Not available 04/25/2020 15:31:02 Reason for Referral Urologist Referral for Blood in urine Dr SanchesPatient was seeing Dr Quezada but then was told his insurance is out of network and is needing continuation of care.Thank you Referring Physician: Simoen Roque, Family Medicine, Encounter Date: 02/23/2020 [employer] Maker Referral for Abdominal pain Abd. pain & nodular liver contour. Dear ,Pt. having ongoing abdominal c/o.CT scan from 02/03/20 showed:IMPRESSION:1. No clear explanation of abdominal symptoms is identified. No evidence of pancreatitis is seen. No urinary tract calculi are seen.2. The liver contour appears slightly nodular. Possibility of cirrhosis not excluded.Thank you for your time!-Ankita Graham CRAB BACKER-C Referring Physician: Ankita Graham, Family Medicine, Encounter Date: 04/25/2020 Pain Management Referral for Low back pain low back pain WILLIAM Bazan PatientPt Pt states he lives in an area with bad signal may not get your call but can leave a message or email him @ [email or web address] youPt denies injury to his back and he denies completing any physical therapy Referring Physician: Akshat Gaxiola, Family Medicine, Encounter Date: 05/05/2020 Results Created Date Observation Date Name Description Value Unit Range Abnormal Flag Note LastModifiedBy Organization Detail LastModifiedTime 04/04/2004/04/2020 urina lysis , dipst ick specific gravity >1.030 1.005 - 1.030 abnormal Not Available Amg - In Office Orders (For Internal Use Only) [address] [facility], [place], [address], 04/04/2020 15:59:08 04/04/20 20 04/04/2020 urina lysis , dipst ick pH 6.0 5.0 - 9.0 normal Not Available [facility]g - In Office Orders (For Internal Use Only) [address] [place], [address], 04/04/2020 15:59:08 04/04/20 20 04/04/2020 urina lysis , dipst ick leukocytes neg negati ve normal Not Available Amg - In Office Orders (For Internal Use Only) [address] [place] [address], [address], 04/04/2020 15:59:08 04/04/20 20 04/04/2020 urina lysis , dipst ick nitrite neg negati ve normal Not Available Amg - In Office Orders (For Internal Use Only) [address] [place] [address], [address], 04/04/2020 15:59:08 04/04/20 20 04/04/2020 urina lysis , dipst ick protein (mg/dL) >300 negati ve abnormal Not Available Amg - In Office Orders (For Internal Use Only) [address] [place] [address], [address], 04/04/2020 15:59:08 04/04/20 20 04/04/2020 urina lysis , dipst ick glucose (mg/dL) 500 normal abnormal Not Available Amg - In Office Orders (For Internal Use Only) [address] [place] [address], [address], 04/04/2020 15:59:08 04/04/2004/04/2020 urina lysis , dipst ick ketones neg negati ve normal Not Available Amg - In Office Orders (For Internal Use Only) [address] [place] [address], [address], 04/04/2020 15:59:08 04/04/2004/04/2020 urina lysis , dipst ick urobilinogen (mg/dL) 0.2 0.2 - 1.0 normal Not Available Amg - In Office Orders (For Internal Use Only) [address] [place] [address], [address], 04/04/2020 15:59:08 04/04/20 20 04/04/2020 urina lysis , dipst ick bilirubin neg negati ve normal Not Available Amg - In Office Orders (For Internal Use Only) [address] [place], [address], 04/04/2020 15:59:08 04/04/20 20 04/04/2020 urina lysis , dipst ick blood modera te negati ve abnormal Not Available Amg - In Office Orders (For Internal Use Only) [address] [place], [address], 04/04/2020 15:59:08 02/03/20 20 02/03/2020 urina lysis compl ete, refle x cultu re glucose-ur NEGATI VE mg/dL neg Not Available [facility] [address], [address], 02/03/2020 12:08:58 02/03/20 20 02/03/2020 urina lysis compl ete, refle x cultu re ketone-ur NEGATI VE mg/dL neg Not Available [facility] [address], [address], 02/03/2020 12:08:58 02/03/20 20 02/03/2020 urina lysis compl ete, refle x cultu re spec grav-ur 1.025 1.003- 1.035 Not Available [facility] [address], [address], 02/03/2020 12:08:58 02/03/20 20 02/03/2020 urina lysis compl ete, refle x cultu re occult bld-ur TRACE neg abnormal Not Available [facility] [address], [address], 02/03/2020 12:08:58 02/03/20 20 02/03/2020 urina lysis compl ete, refle x cultu re pH-ur 7.5 4.5-8. 0 Not Available [facility] [address], [address], 02/03/2020 12:08:58 02/03/20 20 02/03/2020 urina lysis compl ete, refle x cultu re protein, ur 100 mg/dL neg abnormal Not Available [facility] [address], [address], 02/03/2020 12:08:58 02/03/20 20 02/03/2020 urina lysis compl ete, refle x cultu re nitrite-ur NEGATI VE neg Not Available Asv - [facility] [address], [address], 02/03/2020 12:08:58 02/03/20 20 02/03/2020 urina lysis compl ete, refle x cultu re leuk est-ur NEGATI VE neg Not Available [facility] [address], [address], 02/03/2020 12:08:58 02/03/20 20 02/03/2020 urina lysis compl ete, refle x cultu re color-ur YELLOW yel Not Available [facility] - [facility] [address], [address], 02/03/2020 12:08:58 02/03/20 20 02/03/2020 urina lysis compl ete, refle x cultu re appearance-u r CLEAR clear Not Available As[facility] - [facility] [address], [address], 02/03/2020 12:08:58 02/03/20 20 02/03/2020 urina lysis compl ete, refle x cultu re WBC-ur 0-5 /hpf ztf Not Available As[facility] - [facility] [address], [address], 02/03/2020 12:08:58 02/03/20 20 02/03/2020 urina lysis compl ete, refle x cultu re RBC-ur 0-3 /hpf ztt Not [facility] [address] [place], [address], 02/03/2020 12:08:58 02/03/20 20 02/03/2020 urina lysis compl ete, refle x cultu re epi cell-ur 0-5 /hpf none abnormal Not Available [facility] [address] [place], [address], 02/03/2020 12:08:58 02/03/20 20 02/03/2020 urina lysis compl ete, refle x cultu re bacteria-ur TRACE /hpf trace Not Available [facility] [address] [place], [address], 02/03/2020 12:08:58 02/03/20 20 02/03/2020 urina lysis compl ete, refle x cultu re urine comment micro This urine was exami parth micro scopi anastacia for the prese nce of WBC, RBC, bacte vu, casts , and other forme d eleme nts. Only those eleme nts seen were repor andressa. Testi ng by [facility] rt [facility] [address] [place] [address] Not Available v [facility] [address] [place], [address], 02/03/2020 12:08:58 02/03/2002/03/2020 CBC w/ auto diff white blood CT 8.3 K/cum m 3.3-10 .5 Not Available [facility] [address] [place], [address], 02/03/2020 12:13:28 02/03/20 20 02/03/2020 CBC w/ auto diff red blood count 4.52 M/cum m 4.15-5 .75 Not Available [facility] [address] [place], [address], 02/03/2020 12:13:28 02/03/2002/03/2020 CBC w/ auto diff hemoglobin 14.3 g/dL 12.8-1 6.9 Not Available [address], [address], 02/03/2020 12:13:28 02/03/2002/03/2020 CBC w/ auto diff hematocrit 41.6 % 38.8-5 0.2 Not Available [facility] [address], [address], 02/03/2020 12:13:28 02/03/2002/03/2020 CBC w/ auto diff MCV 92.0 fL 80.0-1 05.0 Not Available [facility] [address], [address], 02/03/2020 12:13:28 02/03/2002/03/2020 CBC w/ auto diff MCH 31.6 pg 27.0-3 4.0 Not Available [facility] [address], [address], 02/03/2020 12:13:28 02/03/2002/03/2020 CBC w/ auto diff MCHC 34.4 g/dL 30.5-3 4.5 Not Available [facility] [address], [address], 02/03/2020 12:13:28 02/03/2002/03/2020 CBC w/ auto diff RDW 13.3 % 11.5-1 5.0 Not Available [facility] [address], [address], 02/03/2020 12:13:28 02/03/2002/03/2020 CBC w/ auto diff platelet count 129 K/cum m 150-45 0 low Not Available [facility] [address], [address], 02/03/2020 12:13:28 02/03/20 20 02/03/2020 CBC w/ auto diff MPV 11.5 fL 7.7-12 .2 Not Available [address], [address], 02/03/2020 12:13:28 02/03/20 20 02/03/2020 CBC w/ auto diff diff method Electr onic WBC differ ential count Not Available [facility] [address], [address], 02/03/2020 12:13:28 02/03/2002/03/2020 CBC w/ auto diff seg neutrophils 65 % Not Available [facility] [address], [address], 02/03/2020 12:13:28 02/03/2002/03/2020 CBC w/ auto diff lymphocytes 24 % Not Available [facility] [address], [address], 02/03/2020 12:13:28 02/03/20 20 02/03/2020 CBC w/ auto diff monocytes 9 % Not Available [facility] [address], [address], 02/03/2020 12:13:28 02/03/20 20 02/03/2020 CBC w/ auto diff eosinophils 2 % Not Available [facility] [address], [address], 02/03/2020 12:13:28 02/03/2002/03/2020 CBC w/ auto diff basophils 0 % Not Available [facility] [address], [address], 02/03/2020 12:13:28 02/03/20 20 02/03/2020 CBC w/ auto diff absolute neutrophils 5.35 K/cum m 2.20-6 .40 Not Available [facility] [address], [address], 02/03/2020 12:13:28 02/03/20 20 02/03/2020 CBC w/ auto diff absolute lymphocytes 1.97 K/cum m 1.00-3 .50 Not Available [facility] [address], [address], 02/03/2020 12:13:28 02/03/2002/03/2020 CBC w/ auto diff absolute monocytes 0.73 K/cum m 0.30-0 .80 Not Available [facility] [address], [address], 02/03/2020 12:13:28 02/03/2002/03/2020 CBC w/ auto diff absolute eosinophils 0.19 K/cum m 0.00-0 .20 Not Available [facility] [address], [address], 02/03/2020 12:13:28 02/03/2002/03/2020 CBC w/ auto diff absolute basophils 0.02 K/cum m 0.00-0 .[address] [facility] [address] [place] [facility] [place] [address] Not Available [facility] [address], [address], 02/03/2020 12:13:28 02/03/2002/03/2020 CMP, serum or plasm a sodium 139 mmol/ L 137-14 5 Not Available [facility] [address], [address], 02/03/2020 12:19:26 02/03/2002/03/2020 CMP, serum or plasm a potassium 4.9 mmol/ L 3.5-5. 1 Not Available [facility] [address], [address], 02/03/2020 12:19:26 02/03/2002/03/2020 CMP, serum or plasm a chloride 111 mmol/ L 98-107 high Not Available Asv [address], [address], 02/03/2020 12:19:26 02/03/20 20 02/03/2020 CMP, serum or plasm a CO2 20 mmol/ L 22-30 low Not Available As[facility] [address], [address], 02/03/2020 12:19:26 02/03/2002/03/2020 CMP, serum or plasm a glucose 136 mg/dL 65-99 high If resul t of rando m gluco se > or = 200 or if resul t of fasti ng gluco se is > 125 confi rm Diabe patrick Melli tus diagn osis with secon d gluco se on a . Not Available [facility] [address], [address], 02/03/2020 12:19:26 02/03/20 20 02/03/2020 CMP, serum or plasm a BUN 22 mg/dL 9-20 high Not Available [facility] [address], [address], 02/03/2020 12:19:26 02/03/20 20 02/03/2020 CMP, serum or plasm a creatinine 1.26 mg/dL 0.66-1 .25 high Not Available [facility] [address], [address], 02/03/2020 12:19:26 02/03/2002/03/2020 CMP, serum or plasm [...] used to estim ate GFR. Not Available [facility] [address] [place] [address], [address], 02/03/2020 12:19:26 02/03/20 20 02/03/2020 CMP, serum [...] used to estim ate GFR. Not Available [facility] [address] [place] [address], [address], 02/03/2020 12:19:26 02/03/2002/03/2020 CMP, serum or plasm a ALT 35 U/L <50 Not Available [facility] [address] [place] [address], [address], 02/03/2020 12:19:26 02/03/2002/03/2020 CMP, serum or plasm a AST 42 U/L 17-59 Not Available [facility] [address] [place] [address], [address], 02/03/2020 12:19:26 02/03/2002/03/2020 CMP, serum or plasm a alk phosphatase 74 U/L 38-126 Not Available [facility] [address] [place] [address], [address], 02/03/2020 12:19:26 02/03/2002/03/2020 CMP, serum or plasm a bilirubin total 0.5 mg/dL 0.2-1. 3 Not Available [facility] [address], [address], 02/03/2020 12:19:26 02/03/20 20 02/03/2020 CMP, serum or plasm a protein total 7.4 g/dL 6.3-8. 2 Not Available [facility] [address], [address], 02/03/2020 12:19:26 02/03/20 20 02/03/2020 CMP, serum or plasm a albumin 4.0 g/dL 3.5-5. 0 Not Available [facility] [address], [address], 02/03/2020 12:19:02/03/20 20 02/03/2020 CMP, serum or plasm a calcium 9.2 mg/dL 8.4-10 .2 Testi ng by [facility] [address] [facility] [place] [address] Not Available [facility] [address], [address], 02/03/2020 12:19:26 02/03/20 20 02/03/2020 lipas e, serum or plasm a lipase 316 U/L 23-[address] ng [address] [facility] [address] [facility] [place] [address] Not Available [facility] [address], [address], 02/03/2020 12:19:29 02/23/2002/23/2020 CBC w/ auto diff white blood CT 7.1 K/cum m 3.3-10 .5 Not Available [facility] [address], [address], 02/23/2020 16:01:14 02/23/2002/2202/23/2020 CBC w/ auto diff red blood count 4.45 M/cum m 4.15-5 .75 Not Available [address], [address], 02/23/2020 16:01:14 02/23/20 20 02/23/2020 CBC w/ auto diff hemoglobin 13.7 g/dL 12.8-1 6.9 Not Available [facility] [address], [address], 02/23/2020 16:01:14 02/23/20 20 02/23/2020 CBC w/ auto diff hematocrit 41.3 % 38.8-5 0.2 Not Available [facility] [address], [address], 02/23/2020 16:01:14 02/23/20 20 02/23/2020 CBC w/ auto diff MCV 92.8 fL 80.0-1 05.0 Not Available [facility] [address], [address], 02/23/2020 16:01:14 02/23/20 20 02/23/2020 CBC w/ auto diff MCH 30.8 pg 27.0-3 4.0 Not Available [facility] [address], [address], 02/23/2020 16:01:14 02/23/20 20 02/23/2020 CBC w/ auto diff MCHC 33.2 g/dL 30.5-3 4.5 Not Available [facility] [address], [address], 02/23/2020 16:01:14 02/23/20 20 02/23/2020 CBC w/ auto diff RDW 13.9 % 11.5-1 5.0 Not Available [facility] [address], [address], 02/23/2020 16:01:14 02/23/20 20 02/23/2020 CBC w/ auto diff platelet count 135 K/cum m 150-45 0 low Not Available [address], [address], 02/23/2020 16:01:14 02/23/20 20 02/23/2020 CBC w/ auto diff MPV 12.2 fL 7.7-12 .2 Not Available [address], [address], 02/23/2020 16:01:14 02/23/20 20 02/23/2020 CBC w/ auto diff diff method Electr onic WBC differ ential count Not Available [facility] [address], [address], 02/23/2020 16:01:14 02/23/20 20 02/23/2020 CBC w/ auto diff seg neutrophils 58 % Not Available [facility] [address], [address], 02/23/2020 16:01:14 02/23/20 20 02/23/2020 CBC w/ auto diff lymphocytes 29 % Not Available [facility] [address], [address], 02/23/2020 16:01:14 02/23/20 20 02/23/2020 CBC w/ auto diff monocytes 9 % Not Available [facility] [address], [address], 02/23/2020 16:01:14 02/23/20 20 02/23/2020 CBC w/ auto diff eosinophils 4 % Not Available [address], [address], 02/23/2020 16:01:14 02/23/20 20 02/23/2020 CBC w/ auto diff basophils 0 % Not Available [address], [address], 02/23/2020 16:01:14 02/23/20 20 02/23/2020 CBC w/ auto diff absolute neutrophils 4.14 K/cum m 2.20-6 .40 Not Available [facility] [address], [address], 02/23/2020 16:01:14 02/23/20 20 02/23/2020 CBC w/ auto diff absolute lymphocytes 2.04 K/cum m 1.00-3 .50 Not Available [facility] [address], [address], 02/23/2020 16:01:14 02/23/20 20 02/23/2020 CBC w/ auto diff absolute monocytes 0.63 K/cum m 0.30-0 .80 Not Available [facility] [address], [address], 02/23/2020 16:01:14 02/23/20 20 02/23/2020 CBC w/ auto diff absolute eosinophils 0.29 K/cum m 0.00-0 .20 high Not Available [facility] [address], [address], 02/23/2020 16:01:14 02/23/20 20 02/23/2020 CBC w/ auto diff absolute basophils 0.03 K/cum m 0.00-0 .[address] [facility] [address] [place] [facility] [address] Not Available [facility] [address], [address], 02/23/2020 16:01:14 02/23/20 20 02/23/2020 BMP, serum or plasm a sodium 140 mmol/ L 137-14 5 Not Available [facility] [address], [address], 02/23/2020 16:44:15 02/23/2002/23/2020 BMP, serum or plasm a potassium 5.5 mmol/ L 3.5-5. 1 high Not Available [facility] [address], [address], 02/23/2020 16:44:15 02/23/20 20 02/23/2020 BMP, serum or plasm a chloride 113 mmol/ L 98-107 high Not Available [facility] [address], [address], 02/23/2020 16:44:15 02/23/20 20 02/23/2020 BMP, serum or plasm a CO2 22 mmol/ L 22-30 Not Available [facility] [address], [address], 02/23/2020 16:44:15 02/23/20 20 02/23/2020 BMP, serum or plasm a glucose 152 mg/dL 65-99 high If resul t of rando m gluco se > or = 200 or if resul t of fasti ng gluco se is > 125 confi rm Diabe patrick Melli tus diagn osis with secon d gluco se on a . Not Available [facility] [address], [address], 02/23/2020 16:44:15 02/23/20 20 02/23/2020 BMP, serum or plasm a BUN 28 mg/dL 9-20 high Not Available [facility] [address], [address], 02/23/2020 16:44:15 02/23/20 20 02/23/2020 BMP, serum or plasm a creatinine 1.33 mg/dL 0.66-1 .25 high Not Available [facility] [address], [address], 02/23/2020 16:44:15 02/23/20 20 02/23/2020 BMP, serum [...] used to estim ate GFR. Not Available [facility] [address] [place] [address], [address], 02/23/2020 16:44:15 02/23/2002/23/2020 BMP, serum or plasm [...] used to estim ate GFR. Not Available [facility] [address] [place] [address], [address], 02/23/2020 16:44:15 02/23/2002/23/2020 BMP, serum or plasm a calcium 9.3 mg/dL 8.4-10 [address] [facility] Hos[facility] clint [address] [facility] [place] [address] Not Available [facility] [address] [place] [address], [address], 02/23/2020 16:44:15 02/23/2002/23/2020 C-jose ctive prote in, quant itati ve, serum or plasm a C-reac protein 1.2 mg/dL <1.[address] ng [address] [facility] am[facility] rt Hospi clint [address] [facility] [place] [address] Not Available Asv - Misys Lab [facility] [address] [place] [address], [address], 02/23/2020 16:44:18 02/23/20 20 02/23/2020 lipas e, serum or plasm a lipase 320 U/L 23-[address]i ng by [facility] Hos[facility] clint [address] [facility] [place] [address] Not Available Asv - Misys [facility] [address] [place] [address], [address], 02/23/2020 16:44:19 02/23/20 20 02/23/2020 urina lysis , dipst ick specific gravity >1.030 1.005 - 1.030 Not Available Amg - In Office Orders (For Internal Use Only) [address] [place] [address], [address], 02/23/2020 13:14:32 02/23/20 20 02/23/2020 urina lysis , dipst ick pH 5.5 5.0 - 9.0 Not Available Amg - In Office Orders (For Internal Use Only) [address] [place] [address], [address], 02/23/2020 13:14:32 02/23/20 20 02/23/2020 urina lysis , dipst ick leukocytes negati ve negati ve Not Available Amg - In Office Orders (For Internal Use Only) [address] [place] [address], [address], 02/23/2020 13:14:32 02/23/20 20 02/23/2020 urina lysis , dipst ick nitrite negati ve negati ve Not Available Amg - In Office Orders (For Internal Use Only) [address] [place] [address], [address], 02/23/2020 13:14:32 02/23/20 20 02/23/2020 urina lysis , dipst ick protein (mg/dL) 100 negati ve Not Available Amg - In Office Orders (For Internal Use Only) [address] [place], [address], 02/23/2020 13:14:32 02/23/20 20 02/23/2020 urina lysis , dipst ick glucose (mg/dL) negati ve normal Not Available Amg - In Office Orders (For Internal Use Only) [address] [place], [address], 02/23/2020 13:14:32 02/23/20 20 02/23/2020 urina lysis , dipst ick ketones negati ve negati ve Not Available Amg - In Office Orders (For Internal Use Only) [address] [place], [address], 02/23/2020 13:14:32 02/23/20 20 02/23/2020 urina lysis , dipst ick urobilinogen (mg/dL) 0.2 0.2 - 1.0 Not Available Amg - In Office Orders (For Internal Use Only) [address] [place], [address], 02/23/2020 13:14:32 02/23/20 20 02/23/2020 urina lysis , dipst ick bilirubin negati ve negati ve Not Available Amg - In Office Orders (For Internal Use Only) [address] [place], [address], 02/23/2020 13:14:32 02/23/20 20 02/23/2020 urina lysis , dipst ick blood small negati ve Not Available Amg - In Office Orders (For Internal Use Only) [address] [place], [address], 02/23/2020 13:14:32 03/04/20 20 03/04/2020 SARS CoV 2 RNA (COVI D-19) , QL, 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 NO Testi ng by [facility] am[facility] rt Hospi clint [address] [facility] [place] [address] Not Available [facility] [address] [place] [address], [place], [address], 03/05/2020 04:33:09 03/04/20 20 03/04/2020 SARS CoV 2 RNA (COVI D-19) , QL, corset fitter-P CR, respi rator y speci men first test? YES Not Available [facility] [address] [place] [address], [place] [facility], [address], 03/05/2020 04:33:09 03/04/20 20 03/04/2020 SARS CoV 2 RNA (COVI D-19) , QL, corset fitter-P CR, respi rator y speci men emplyd in [facility]? NO Not Available [facility] [address] [place] [address], [place] [facility], [address], 03/05/2020 04:33:09 03/04/20 20 03/04/2020 SARS CoV 2 RNA (COVI D-19) , QL, corset fitter-P CR, respi rator y speci men hospitalized ? NO Not Available [facility] [address] [place] [address], [place] [facility], [address], 03/05/2020 04:33:09 03/04/20 20 03/04/2020 SARS CoV 2 RNA (COVI D-19) , QL, corset fitter-P CR, respi rator y speci men ICU? NO Not Available [facility] [address] [place] [address], [place] 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 NO Not Available [facility] [address] [place] [address], [place] 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 NO Not Available Asv - Mi sys Lab [facility] [address] , [place], [address], 03/05/2020 04:33:09 03/04/20 20 03/04/2020 SARS CoV 2 RNA (COVI D-19) , QL, corset fitter-P CR, respi rator y speci men race WHITE Not Available Asv - Misy s [facility] [address] [place], [address], 03/05/2020 04:33:09 03/04/20 20 03/04/2020 SARS CoV 2 RNA (COVI D-19) , QL, corset fitter-P CR, respi rator y speci men ethnicity NOT HISPA HAIR Testi ng by [facility] rt Hospi clint [address] [place] [facility] [address] Not Available [facility] [address] [place], [address], 03/05/2020 04:33:09 03/04/20 20 03/05/2020 SARS CoV 2 RNA (COVI D-19) , QL, corset fitter-P CR, 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 NEGAT LITO RESUL TS MUST BE COMBI PARTH WITH CLINI CISCO OBSER VATIO NS, PATIE NT HISTO RY, AND EPIDE MIOLO GICAL INFOR MATIO N. PERFO RMANC E OF TMA TESTI NG HAS BEEN VERIF IED BY [facility], UNDER FDA EMERG ENCY USE AUTHO RIZAT ION (EUA) . TESTI NG PERFO RMED USING NAAT (NUCL EIC ACID AMPLI FICAT ION) METHO DOLOG Y. Testi ng by [facility] [address] [place] [address] Not Available v [facility] [address] [place], [address], 03/05/2020 04:33:09 03/28/2003/29/2020 PSA, serum or plasm [...] [place] [address] Not Available [facility] [address], [address], 03/29/2020 01:38:30 03/28/2004/02/2020 testo stero ne, free + total , serum total testosterone _ TNP Unit: ng/dL (NOTE ) TEST NOT PERFO RMED No suita ble speci men recei mata. Not Available [facility] [address], [address], 04/02/2020 01:49:32 03/28/2004/02/2020 testo stero ne, free + total , serum free testosterone _ TNP Unit: pg/mL (NOTE ) TEST NOT PERFO RMED No suita ble speci men recei mata. [facility] [address] [place] [address] Power s James ervin MD Not Available [facility] [address], [address], 04/02/2020 01:49:32 03/29/20 20 04/01/2020 testo stero ne, free + total , serum total testosterone 333 _ Refer ence range : 250 to 1100 Unit: ng/dL (NOTE ) For addit ional infor young higuera refer to http: //[facility] clary ahnque stdia gnost ics.c om/fa q/Tot [...] ation s and is used for clini cisco purpo ses. Not Available [facility] [address], [address], 04/01/2020 17:08:11 03/29/20 20 04/01/2020 testo stero [...] ation s and is used for clini cisco purpo ses. Speci [facility] [address] [place] [facility] [place] [address] Power s James ervin MD Not Available [facility] [address], [address], 04/01/2020 17:08:11 04/04/20 20 04/05/2020 HbA1c (hemo globi n A1c), blood hemoglobin A1C 7.5 % <5.7 high Not Available [facility] [address], [address], 04/05/2020 00:40:27 04/04/20 20 04/05/2020 HbA1c (hemo [...] nts/a bnorm yazmin es. False ly eleva andressa or decre ased resul ts may occur . Not Available v [facility] [address], [address], 04/05/2020 00:40:27 04/04/2004/05/2020 HbA1c (hemo globi n A1c), blood est avg glucose 169 mg/dL Testi ng by [facility] [address] [place] [address] Not Available [facility] [address], [address], 04/05/2020 00:40:27 08/19/19 21 08/19/2020 HbA1c (hemo globi n A1c), blood hemoglobin A1C 7.7 % <5.7 high Not Available v [facility] [address], [address], 08/19/2020 08:11:53 08/19/1908/19/2020 HbA1c (hemo globi n [...] nts/a bnorm yazmin granados. False ly eleva andressa or decre ased resul ts may occur . Not Available [facility] [address] , [place], [address], 08/19/2020 08:11:53 08/19/19 21 08/19/2020 HbA1c (hemo globi n A1c), blood est avg glucose 174 mg/dL Testi ng by [facility] [address] [place] [address] Not Available Asv - Misys Lab - [facility] [address] , [place], [address], 08/19/2020 08:11:53 02/03/20 20 02/03/2020 CT, abdom en + pelvi s, w/o contr [facility] AT[facility]: CT ABD/PE LVIS WO/C - ACC #: [id number] CPT: 94948 Mod: RIS Order: [id number] ([facility]) ([id number]) HIS Order: [id number] [facility]-RA D [id number] STARTE D: Feb 03 2020 12:30P M COMPLE ANDRESSA: Feb 03 2020 12:43P M TECH INITIA [...] of the follow ing techni ques: automa andressa exposu re contro l, adjust ment of the mA and/or kV accord ing to patien t size (this includ es techni ques or standa rdized protoc ols for target ed exams where dose is matche d to the indica tion/r cheyanne for exam, i.e. extrem ities or head), use of iterat lito recons tructi ve techni que. FINDIN GS: Business Analysis Professional image( s): No notabl e abnorm ality [...] ing Dr: SILVIA MASCORRO Primar y Care: AKSHAT EATON onal Doctor (s): ELECTR ONICAL LY SIGNED BY: IVANIA KNOWLES M.D.Se p 9 2019 2:45PM Right> Left Flank pain, +hemat uria^ [facility] [address], [place], [address], 02/05/2020 09:12:27 Result Notes None recorded. Problems Name Problem SNOMED Code Status Onset Date Resolution Date Notes Provider Name and Address Organization Details Recorded Time Diabetes mellitus 87331108 Active 2017 Akshat Gaxiola CR[employer] BACKER [address], [place], [address], [place] 8 14:10:28 Essential hypertensio n 57567508 Active 2017 Akshat Gaxiola [employer]ER [address], [address], [place], [address], [place] 8 14:10:37 Neuropathy due to diabetes mellitus 236954050 Active 2018 Akshat Gaxiola [employer]ER [address], [address], [place], [address], [place] 9 15:58:31 Pancreatiti s 16015963 Active 2018 Akshat Gaxiola [employer] [address], [address], [place], [address], [place] 9 11:18:27 Hypertrigly ceridemia 691696376 Active 2018 Akshat Gaxiola [employer]ER [address], [address], [place], [address], [place] 9 13:06:44 Impotence Active 2018 Akshat Gaxiola [employer] [address], [address], [place], [address], [place] 9 16:21:02 Neuropathy 205369962 Active 2018 Akshat Gaxiola NP [address], [address], [place], [address], [place] [facility] - [place] 9 16:21:03 Noncomplian ce with treatment 5885863 Active 2018 Akshat Gaxiola [employer] [address], [address], [place], [address], [place] - [place] 9 16:21:20 Diverticuli tis 251578943 Completed 201801/23/2019 Akshat Gaxiola [employer] [address], [place], [address], [place] - [place] 9 16:23:54 Gastroesoph ageal reflux disease 246533639 Active [address]MA [facility], [place] 0 08:48:30 Inguinal pain 786372268 Active 2019 Ankita E Santos [employer] [address], [place], [address], [place] 0 12:16:00 Hand wart 516485808 Active 2019 Ankita E Santos [employer] [address], [place], [address], [place] - [place] 0 07:17:38 Erectile dysfunction due to diabetes mellitus 556949059 Active 2019 Ankita E Santos [employer] [address], [address], [place], [address], [place] - [place] 0 07:26:36 Obesity 474922769 Active 2019 Ankita E Santos [employer] [address], [address], [place], [address], [place] 0 07:36:50 Pneumococca l vaccination declined 082351618 Active 2019 Ankita E Santos [employer] [address], [address], [place], [address], [place] 0 14:22:39 Mixed anxiety and depressive disorder 979205378 Active 2019 Ankita E Santos CR[employer] [address], [address], [place], [address], [place] - [place] 0 05:24:33 Fatigue 98747357 Active 2019 Ankita E Santos CR[employer] [address], [address], [place], [address], [place] 0 05:24:34 Restless sleep 90023849 Active 2019 Ankita E Santos CR[employer]ER [address], [address], [place], [address], [place] 0 05:24:35 Allergic rhinitis 41417352 Active 2019 Ankita E Santos CR[employer]ER [address], [address], [place], [address], [place] - [facility] 0 05:24:37 Serum creatinine above reference range 892360477 Active 2019 Ankita E Santos CR[employer]ER [address], [address], [place], [address], [place] - [facility] 0 05:24:43 Vitamin D deficiency 90988170 Active 2019 Ankita E Santos CR[employer]ER [address], [address], [place], [address], [place] - [place] 0 05:26:09 Abdominal pain 38554266 Active 2019 Ankita E Santos CR[employer]ER [address], [address], [place], [address], [place] [facility] 0 15:18:19 Problem Notes None recorded. Procedures Surgical History Date Name Laterality Status Provider Name and Address Organization Details Recorded Time 04/25/20 20 Cryosurgery Wart(s) completed Ankita E Santos CR[employer]ER [address], [place], [address], [place] - [facility] 04/25/2020 15:35:07 02/12/20 20 Cryosurgery Wart(s) completed Ankita E Santos CRAB [employer]ER [address], [facility] [place], [address], [place] [facility] 02/15/2020 05:38:33 01/22/20 20 Cryosurgery Wart(s) completed Ankita E Santos CRAB BACKER [address], [facility] [place], [address], [place] - [facility] 01/24/2020 07:33:57 05/27/19 10 Cholecystectomy completed Ebony Dorado [employer] [place] [facility] 12/09/2017 14:57:44 Imaging Results None recorded. Procedure Notes None recorded. Medical Equipment None Reported. Allergies Allergen ID Allergen Name Allergen Category Reaction Reaction Severity Criticality Documentation Date Start Date Code Code System Note Provider Name and Address Organization Details Recorded Time 889868 shrimp allergeni c extract food Not available Not available Not available 12/09/2017 29521 2 RxNorm Ebony Dorado [employer] null, [place] [facility] 8 14:53:19 277905 Toradol medicatio n Not available Not available Not available 06/03/2018 26758 RxNorm Cause patie nt to be sick. Ebony Dorado [employer]DER null, [place] [facility] 9 15:28:36 Medications Name Sig Start Date [...] in Arterial blood by Pulse oximetry Systolic And Diastolic Provider Name and Address Organization Details Last Updated DateTime 1 171.45 cm 39.7 kg/m2 017979. 99 g 18 /min 98.7 [degF] 82 /min 96 % 96 % 164/94 mm[Hg] Ebony Fljacques [facility] [place] [facility] 1 16:06:02 Date Recorded Body height Body mass index (BMI) Body weight Respiratory rate Body temperature Heart rate Oxygen saturation Oxygen saturation in Arterial blood by Pulse oximetry Systolic And Diastolic Provider Name and Address Organization Details Last Updated DateTime 0 171.45 cm 37.1 kg/m2 902257. 57 g 18 /min 98.2 [degF] 82 /min 98 % 98 % 140/80 mm[Hg] Justina Brett Ramirez [facility] [place] [facility] 0 13:05:28 Date Recorded Body height Body mass index (BMI) Body weight Body temperature Respiratory rate Heart rate Oxygen saturation Oxygen saturation in Arterial blood by Pulse oximetry Systolic And Diastolic Provider Name and Address Organization Details Last Updated DateTime 0 171.45 cm 37.6 kg/m2 151561. 4 g 98.7 [degF] 18 /min 80 /min 96 % 96 % 136/86 mm[Hg] Ebony Jean Mariejacques [facility] [place] [facility] 0 15:30:45 Date Recorded Body height Body mass index (BMI) Body weight Respiratory rate Body temperature Oxygen saturation Oxygen saturation in Arterial blood by Pulse oximetry Heart rate Systolic And Diastolic Provider Name and Address Organization Details Last Updated DateTime 0 171.45 cm 38 kg/m2 290777. 72 g 16 /min 97.4 [degF] 97 % 97 % 88 /min 148/90 mm[Hg] Sherry Piper [facility] [place] [facility] 0 14:46:37 Date Recorded Body height Respiratory rate Body mass index (BMI) Body weight Body temperature Heart rate Oxygen saturation Oxygen saturation in Arterial blood by Pulse oximetry Systolic And Diastolic Provider Name and Address Organization Details Last Updated DateTime 0 171.45 cm 18 /min 38 kg/m2 857064. 47 g 99.1 [degF] 87 /min 97 % 97 % 130/82 mm[Hg] Ebony Jean Marieadarshrr [facility] [place] [facility] 0 13:45:11 Social History Question Answer Notes LastModified by Organizat ion Details LastModified Time Tobacco Smoking Status Never Smoker Ebony Dorado [employer] null, [place] 12/09/2017 14:56:50 What Is Your Level Of Caffeine Consumption? None [email or web address] Information not available 07/10/2018 In The 14 [...] Type Of Diet Are You Following? REGULAR [email or web address] Information n ot available 07/10/2018 Which Illicit Or Recreational Drugs Have You Used? None [email or web address] Information not available 07/10/2018 Education 12 Information no t available 07/10/2018 Hard Of Hearing Or Deaf In One Or Both Ears? No [email or web address] Information not available 07/10/2018 Have You Had Sexual Relations With Anyone Who Has Been Positively Diagnosed With Zika Virus Within The Last 6 Months? No Information n ot available 05/05/2020 Legally Blind In One Or Both Eyes? No [email or web address] Information no t available 07/10/2018 Have You Had A Fever And/or Symptoms Of A Lower Respiratory Illness (cough, Difficulty Breathing, Etc)? No Information not available 06/07/2020 Have You Had Any Of These Symptoms: Chills ,Headache, Fatigue, Muscle Or Body Aches , Sore Throat, New Loss Of Taste Or Smell, Nausea Or Vomiting, Or Diarrhea? No Information not available 06/07/2020 Marital Status Single [email or web address] Informatio n not available 07/10/2018 What Was The Date Of Your Most Recent Tobacco Screening? 06/07/2020 Information not available 06/07/2020 Performs Monthly Self-breast Exam? No [email or web address] Information no t available 07/10/2018 Seat Belts Used Routinely Yes [email or web address] Information not available 07/10/2018 Smoke Alarm In Home Yes [email or web address] Information not available 07/10/2018 How Much Tobacco Do You Smoke? No Information not available 06/03/2018 General Stress Level High [email or web address] Information not available 07/10/2018 How Many Years [...] is your level of alcohol consumption? None [email or web address] Information not available 07/10/2018 Do you or have you ever used smokeless tobacco? Never used smokeless tobacco Information not available 03/31/2019 Are you able to walk? 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 [email or web address] Information not available 07/10/2018 Do you or [...] Recorded Time Tdap 9 completed Not Available [facility] 06/14/2019 02:32:31 Influenza, split virus, quadrivalent , PF 9 cancelled patient objection Not Available [facility] 06/13/2019 04:07:16 Past Encounters Encounter ID Performer Location Encounter Start Date Encounter Closed Date Diagnosis/Indication Diagnosis SNOMED-CT Code Diagnosis ICD10 Code Diagnosis Note [id number] Akshat Gaxiola NP IND_WIL_W NC_DOC [address] [place] [address] 12/09/2017 14:36:16 12/09/2017 15:52:41 Adult health examination 283082796 Z00.00 Obesity 348913451 E66.9 Vitamin D deficiency 347 36257 E55.9 Fatigue 93140132 R53.83 Diabetes mellitus 944947 09 E11.9 Gastroesop hageal reflux disease 026644270 K21.9 [id number] Akshat Gaxiola CRAB BACKER IND_WIL_W [facility]_DOC [address] [place] [address] 01/30/2018 13:04:01 01/30/2018 14:09:09 Left upper quadrant pain 487818850 R10.12 Diabetes mellitus 775126 09 E11.9 A1C 10.8 Diarrhea 86938043 R19.7 Imodium Impotence 206159803 N52. 9 trying jose root supplement s bought over the internet [id number] Akshat Gaxiola CRAB BACKER IND_WIL_W [facility]DOC [address] [place] [address] 06/03/2018 15:22:13 06/04/2018 09:25:14 Osteoarthritis of ankle and/or foot 38078912 M19.079 Impotence 362798887 N52. 9 Seasonal allergy 3757850 04 J30.2 Neuropathy due to diabetes mellitus 993080380 E11.40 Body mass index 30+ - obesity 311313313 Z68.37 Abnormal weight gain 161 177944 R63.5 [id number] Akshat Gaxiola CRAB BACKER IND[facility] [address] [place] [address] 07/10/2018 10:57:33 07/10/2018 13:02:16 Follow-up visit [id number] Z09 Essential hypertension 40868690 I10 Acute pancreatitis 28578 6007 K85.90 Body mass index 30+ - obesity 007215520 Z68.38 Headache 82600963 R51 Edema of l ower extremity 953205440 R60.0 [id number] Akshat Gaxiola CRAB BACKER IND_WIL_W [facility] [address] [place] [address] 01/23/2019 15:24:42 01/29/2019 12:46:53 Essential hypertension 71551639 I10 Impotence 572209070 N52. 9 Hypertriglyceridemia 302 505635 E78.1 Neuropathy 571527322 G62 .9 Diabetes mellitus 087810 09 E11.9 Adult heal th examination 093679333 Z00.00 Active or passive immunization 025281569 Z23 Noncomplia nce with treatment 6637237 Z91.19 [id number] Akshat Gaxiola CRAB BACKER IND[facility]WIL[facility]W [facility] [address] [facility] [address] 03/31/2019 15:37:52 03/31/2019 17:32:53 Hypertriglyceridemia 069539923 E78.1 Neuropathy 190096711 G62 .9 Essential hypertension 58271035 I10 Diabetes mellitus 708159 09 E11.9 Gastroesop hageal reflux disease 457884703 K21.9 Vaccine de clined by patient 1894574731 02 Z28.21 Noncomplia nce with medication regimen 993771184 Z91.14 [id number] Akshat Gaxiola CRAB BACKER IND[facility]WIL[facility]W [facility] [address] [facility] [address] 09/11/2019 15:18:49 09/14/2019 09:00:09 Diabetes mellitus 86228948 E11.9 Noncomplia nce with treatment 6165851 Z91.19 Essential hypertension 41398132 I10 Neuropathy due to diabetes mellitus 709601313 E11.40 Gastroesop hageal reflux disease 497402965 K21.9 Hypertriglyceridemia 302 779067 E78.1 [id number] Akshat Gaxiola CRAB BACKER IND[facility]W [facility] [address] [facility] [address] 12/04/2019 12:52:07 12/04/2019 13:41:36 Urinary incontinence 964526147 R32 Mixed anxi ety and depressive disorder 348570021 F41.8 Impotence 828496703 N52. 9 Diabetes mellitus 886879 09 E11.9 Essential hypertension 30771706 I10 [id number] Ankita Graham CR[employer] [facility]ER IND_WIL_W [facility]DOC [address] [place] [address] 01/22/2020 11:23:24 01/25/2020 10:33:31 Inguinal pain 665068551 R10.2 Hand wart 830942321 B07. 8 Erectile d ysfunction due to diabetes mellitus 974616455 N52.1 Obesity 681221910 E66.9 [id number] Ankita Graham CRAB BACKER IND[facility]WIL[facility]W [facility] [address] [facility] 1929[address]1984, [place] [address] 02/12/2020 13:38:05 02/15/2020 08:18:24 Pneumococcal vaccination declined [id number] Z28.21 Adult heal th examination 186278516 Z00.01 Diabetes mellitus 894822 09 E11.40 Serum crea tinine above reference range 334756102 R79.89 Hand wart 391535622 B07. 8 Allergic rhinitis 181742 04 J30.9 Restless sleep 53957968 G47.9 Fatigue 20089448 R53.83 Mixed anxi ety and depressive disorder 333758507 F41.8 Vitamin D deficiency 347 58342 E55.9 Viral screening 09895148 4 Z11.59 Erectile d ysfunction due to diabetes mellitus 350921514 N52.1 Neuropathy due to diabetes mellitus 332114019 E11.40 Essential hypertension 69212480 I10 Gastroesop hageal reflux disease 568371872 K21.9 Obesity 768858039 E66.9 [id number] Simone Roque MD IND_WIL_W NC_DOC [address] [facility] [place] [address] 02/23/2020 12:50:40 02/23/2020 15:19:11 Blood in urine 65149585 R31.9 Diarrhea 23704169 R19.7 Abdominal pain 57765989 R10.9 Pain of ri ght testicle 6748160467 8962992 N50.811 Primary er ectile dysfunction 119270693 N52.9 [id number] Akshat Gaxiola [employer] IND_WIL_W SC_DOC [address] [facility] 1929[facility] [address] 04/04/2020 15:18:58 04/04/2020 16:15:11 Diabetes mellitus 63085129 E11.9 Essential hypertension 79814700 I10 Gastroesop hageal reflux disease 144163531 K21.9 Hypertriglyceridemia 302 948370 E78.1 Neuropathy 894198910 G62 .9 Blood in urine 80389045 R31.9 Noncomplia nce with treatment 1191822 Z91.19 Impotence 587669439 N52. 9 [id number] Ankita Graham [employer] IND_WIL_W SC_DOC [address] [place] [address] 04/25/2020 14:05:15 04/25/2020 17:49:59 Essential hypertension 23402904 I10 Abdominal pain 77872888 R10.9 New daily persistent headache 0434110699 72245 G44.52 Hand wart 752066543 B07. 8 [id number] Akshat Gaxiola [employer] IND_WIL_W SC_DOC [address] [facility] 1929[facility] [address] 05/05/2020 13:30:55 05/05/2020 14:10:20 Low back pain 748346788 M54.5 Pain of ri ght testicle 4014972999 9596664 N50.811 [id number] Akshat Gaxiola [employer] IND_WIL_W SC_DOC [address] , [place] [address] [place] [address] 7 06/07/2020 15:54:49 06/08/2020 10:28:17 Essential hypertension 26614306 I10 Migraine 45521222 G43.90 9 Health Concerns Section Related Observation LastModified by Organization Detai ls LastModified Time None Recorded Concern Status LastModified by Organization Details LastModified Time None Recorded Advance Directives Directive None Recorded Payers Insurance Date Sequence Insurance Name Policy Number Policy Melvin Covered Member ID Melvin Member ID Guarantor Name 01/28/2018 1 [employer] [place]) [facility] Guido Whalen [id number] Guido Whalen 02/17/2018 2 *SELF PAY* Do blayne Whalen 10/17/2020 1 [employer] [place] [facility] Guido Whalen [id number] Guido Whalen 10/07/2019 3 [place] - TRADITIONAL FFS Guido Whalen 0 Guido Hines Whalen 04/04/2020 1 [place] [id number] Guido Whalen [id number] Guido Whalen 12/09/2017 1 [employer] [place] Guido Wrightrell [id number] Guido Whalen Notes Date Note Type Note Provider Name and Address Organization Details Recorded Time 02/23/2020 text/html Sick Visit #Repo rted bypatient.Presentation :Patient presents for follow up of:; He has seen [facility], and ER in [place] and has also seen Dr Quezada. (02/14/2020) [...] chest pain Simone Roque MD [address] [place] [address], [address], [place], [address], [place] - [place] [facility] [place] 02/23/2020 16:12:04 04/04/2020 text/html 49 yo patient [...] today Tdap 2019 Refused Flu and PNA Akshat Gaxiola [employer]ER [address] , [address], [place], [address], [place] - [place] [facility] 04/04/2020 16:10:35 04/25/2020 text/html Per pt.: [...] went away after last tx. 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
--- NOTE | 2024-12-06 17:13 | ECG_ITS ---
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 Measurements Intervals [place] Rate: 59 P: 34 CA: 127 QRS: 7 QRSD: 105 T: 0 QT: 442 QTc: 438 Interpretive Statements SINUS BRADYCARDIA MINIMAL ST DEPRESSION [0.025+ mV ST DEPRESSION] Compared to ECG 12/01/2024 12:54:14 ST (T wave) deviation now present Sinus rhythm no longer present T-wave abnormality no longer present Electronically Signed On 12-08-2024 09:59:17 CDT by Mai Garcia M.D. [email or web address]
--- NOTE | 2024-12-06 18:21 | XRR_ITS ---
PROCEDURE INFORMATION: Exam: XR Abdomen Exam date and time: 12/06/2024 6:29 PM Age: 54 years old Clinical indication: Abdominal pain; Prior surgery; Surgery date: 3-7 days post-operative; Surgery type: Recent cardiac stents (groin accessed), HX of peg tube, gallbladder; Additional info: Abd pain TECHNIQUE: Imaging protocol: Radiologic exam of the abdomen. Views: Frontal supine view of the abdomen. 1 View. COMPARISON: CR XR KUB portable 17203 12/02/2024 10:35 AM FINDINGS: Gastrointestinal tract: Nonspecific bowel-gas pattern without evidence of large or small bowel obstruction. Intraperitoneal space: Right upper quadrant clips. Bones/joints: Unremarkable. XR/XR abdomen 1V* [id number] IMPRESSION: No plain film evidence of acute intra-abdominal or pelvic process.
[2024-12-06 18:45] LABS: Hematocrit 34.0 % (37-53); Hemoglobin 10.30 g/dL (11.27-16.99); Mean Corpuscular HGB Conc 30.3 g/dL (30-55); Mean Corpuscular Hemoglobin 28.8 pg (27-33); Mean Corpuscular Volume 95.0 fl (82-101); Nucleated Red Blood Cells % 0 %; Platelet Count 134 10^3/cmm (157-399); Red Blood Count 3.58 10^6/uL (3.85-5.65); White Blood Count 7.55 10^3/uL (3.29-11.43)
--- NOTE | 2024-12-06 18:54 | CTR_ITS ---
PROCEDURE INFORMATION: Exam: CT Abdomen And Pelvis With Contrast Exam date and time: 12/06/2024 7:23 PM Age: 54 years old Clinical indication: Abdominal pain; Generalized; Prior surgery; Surgery date: 6+ months; Surgery type: Gb. Coronary stents; C/O abd pain with constipation. 9 days post op from heart cath. ; Additional info: Abdominal pain post coronary cath TECHNIQUE: Imaging protocol: Computed tomography of the abdomen and pelvis with contrast. Radiation optimization: All CT scans at this facility use at least one of these dose optimization techniques: automated exposure control; mA and/or kV adjustment per patient size (includes targeted exams where dose is matched to clinical indication); or iterative reconstruction. Contrast material: OMNI 350; Contrast volume: 100 ml; Contrast route: INTRAVENOUS (IV); COMPARISON: CR (ABDOMEN, ) 12/06/2024 6:29 PM RADIATION DOSE METRICS: Total DLP (mGy-cm): 930 FINDINGS: Pleural spaces: Trace pleural effusions with adjacent atelectasis. Heart: Heart size is within normal limits. There is no pericardial effusion or pericardial thickening. Liver: Nodularity of the liver surface consistent with hepatic cirrhosis. No hepatic mass identified on single phase imaging. Gallbladder and biliary ducts: The gallbladder is surgically absent. There is no ductal dilatation. Pancreas: The pancreas is normal. Spleen: Moderate splenomegaly. The spleen measures 16.8 cm in length. Adrenal glands: The adrenal glands are normal. Kidneys and ureters: There is normal enhancement of the kidneys. No renal calcifications are identified. There is no hydronephrosis. Stomach and bowel: There is no large or small bowel obstruction. There is no evidence of bowel wall thickening. Appendix: A normal appendix is identified. Intraperitoneal space: Mild ascites. Trace hyperdensity in the dependent portions of pelvic ascites may represent trace blood. No fluid collection. No definitive focal inflammatory change. Vasculature: Atherosclerotic calcifications of the aorta are present. No aneurysm is identified. Trace haziness adjacent to the right common femoral artery likely related to recent arterial access. No pseudoaneurysm or significant hematoma identified. Lymph nodes: No enlarged lymph nodes are identified. Urinary bladder: The bladder is unremarkable. Reproductive: The prostate is grossly unremarkable. Bones/joints: No acute osseous abnormalities are seen. Soft tissues: Moderate diffuse subcutaneous edema consistent with anasarca. Small bilateral inguinal hernias containing only fat are present. CT/CT abdomen pelvis w con* [id number] IMPRESSION: 1. Hepatic cirrhosis with portal hypertension manifested by splenomegaly, ascites, and anasarca. 2. Trace hyperdensity in the dependent portions of pelvic ascites may represent trace blood. 3. Other nonemergent findings above.
[2024-12-06 19:02] LABS: Alanine Aminotransferase 46 U/L (0-41); Albumin Level 3.4 g/dL (3.5-5.2); Alkaline Phosphatase 198 U/L (40-130); Anion Gap 18.4 (5-19); Aspartate Amino Transferase 45 U/L (0-40); Blood Urea Nitrogen 58 mg/dL (6-20); Calcium 8.6 mg/dL (8.5-10.5); Carbon Dioxide 26 mmol/L (22-29); Chloride 99 mmol/L (98-107); Creatinine Clr Calc Pharmacy 27.9208; Globulin 4.0 g/dL (1.3-4.6); Glucose 242 mg/dL (65-115); Osmolality Calculated 310 mOsm/kg (285-295); Potassium 5.4 mmol/L (3.5-5.1); Sodium 138 mmol/L (136-145); Total Protein 7.4 g/dL (6.6-8.7)
[2024-12-06 19:11] LABS: Lipase 483 U/L (13-60)
--- NOTE | 2024-12-06 19:13 | W.ED.ABDPA2 ---
HPI - Abdominal Pain General: Chief Complaint: Abdominal Pain Stated Complaint: abd pain (7xday postop) Time Seen by Provider: 12/06/24 18:33 History of Present Illness: 54-year-old male patient had a cardiac catheterization 7 days ago he says. 5 days ago he developed some generalized abdominal discomfort. It is worsened over that time. He has been nauseated. No vomiting. No diarrhea. He states his bowel movements have been abnormally small and hard. He has not been on pain medication. No bleeding with stool. No fever. No burning with urination. No change in urine color. Related Data Home Medications ?Medication ?Instructions ?Recorded ?Confirmed albuterol sulfate 90 mcg/actuation 2 puff inhalation Q4H PRN 08/05/24 11/24/24 aerosol inhaler Shortness Of Breath cyclobenzaprine 10 mg tablet 10 mg PO BID PRN Spasms 09/16/24 11/24/24 ferrous sulfate 325 mg (65 mg 325 mg PO .QOD 09/16/24 11/24/24 iron) tablet (FeroSul) lidocaine 4 % topical patch 1 patch topical Q12H PRN Pain 09/16/24 11/24/24 (Lidocaine Pain Relief) hydroxyzine HCl 25 mg tablet 25 mg PO BEDTIME PRN Insomnia 11/24/24 11/24/24 loperamide 2 mg capsule See Rx Instructions .Route 11/24/24 11/24/24 .COMPLEX PRN Diarrhea potassium chloride 10 mEq 10 meq PO DAILY 11/24/24 11/24/24 tablet,extended release vitamin B complex with vit C-folic 1 tab PO DAILY 11/24/24 11/24/24 acid 800 mcg-zinc 12.5 mg tablet (RenaPlex) Previous Rx's ?Medication ?Instructions ?Recorded cholecalciferol (vitamin D3) 1,250 50,000 mcg (40 x 1,250 mcg (50,000 08/27/24 mcg (50,000 unit) capsule unit)) PO Q7D #4 caps escitalopram oxalate 5 mg tablet 5 mg PO DAILY #30 tabs 09/07/24 pantoprazole 40 mg tablet,delayed 40 mg PO BID #180 tabs 09/08/24 release (Protonix) doxazosin 8 mg tablet 8 mg PO DAILY #30 tabs 10/01/24 gabapentin 100 mg capsule 100 mg PO TID #90 caps 11/10/24 amlodipine 5 mg tablet 5 mg PO DAILY 30 days #30 tabs 12/02/24 aspirin 81 mg tablet,delayed 81 mg PO DAILY 30 days #30 tabs 12/02/24 release atorvastatin 40 mg tablet 40 mg PO BEDTIME 30 days #30 tabs 12/02/24 benzonatate 100 mg capsule 200 mg (2 x 100 mg) PO Q8H PRN 12/02/24 cough 5 days #30 caps bumetanide 2 mg tablet 1 mg (1/2 x 2 mg) PO DAILY 30 days 12/02/24 #15 tabs carvedilol 25 mg tablet 25 mg PO BID 30 days #60 tabs 12/02/24 clopidogrel 75 mg tablet 75 mg PO DAILY 30 days #30 tabs 12/02/24 glucagon HCl 1 mg solution for 1 mg IM Q20M PRN hypoglycemia #1 ea 12/02/24 injection (Glucagon (HCl) Emergency Kit) insulin glargine 100 unit/mL (3 10 unit (0.1 mL) SUBCUT BID 30 12/02/24 mL) subcutaneous pen (Lan days #6 mL Solostar U-100 Insulin) insulin lispro 100 unit/mL See Rx Instructions .Route 12/02/24 subcutaneous pen .COMPLEX 30 days #15 mL isosorbide mononitrate 30 mg 30 mg PO DAILY 30 days #3 tabs 12/02/24 tablet,extended release 24 hr losartan 50 mg tablet 50 mg PO DAILY 30 days #30 tabs 12/02/24 nitroglycerin 0.4 mg sublingual 0.4 mg sublingual Q5M PRN Chest 12/02/24 tablet Pain 30 days #30 tabs polyethylene glycol 3350 17 gram 17 g PO DAILY constipation 30 days 12/02/24 oral powder packet #30 ea sennosides 8.6 mg tablet (Laxative 8.6 mg PO BID 30 days #60 tabs 12/02/24 (sennosides)) hydrocodone 5 mg-acetaminophen 325 1 tab PO Q8H PRN pain #7 tabs 12/06/24 mg tablet polyethylene glycol 3350 17 17 g PO DAILY #238 grams 12/06/24 gram/dose oral powder (Gavilax) Allergies Allergy/AdvReac Type Severity Reaction Status Date / Time ketorolac Allergy ADR-Vomitin Verified 12/06/24 17:10 g PFSH ED PFS: Medical History Hypertension Diabetes CKD (chronic kidney disease) Liver cirrhosis MRSA pneumonia Blastomycosis of central nervous system Anemia Surgical History S/P percutaneous endoscopic gastrostomy (PEG) tube placement Tracheostomy status Past medical history positive for prolonged hospitalization secondary to angioedema requiring intubation, followed by tracheostomy after prolonged intubation, PEG tube placement after prolonged n.p.o. 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 07/17 MRI lumbar spine chronic degenerative changes, he was given prolonged antibiotics for possible osteomyelitis 08/01: Follow-up MRI no evidence of osteomyelitis Antimicrobial therapy IV vancomycin: Did not tolerate He was given linezolid, ceftaroline meropenem, micafungin, daptomycin Prolonged IV meropenem 07/23 till 08/01 Itraconazole prolonged therapy 07/22-08/01 PICC line removed And sent to spirometer [facility] provided Patient was discharged on room air EGD: 07/28: Gastritis: Colonoscopy 07/30: Nonbleeding internal hemorrhoids: 3 to 5 mm small polyps removed large 20 mm polyp removed as well: Patient was asked to follow-up for colonoscopy within 3 years Diarrhea: C. difficile panel negative: Patient was given Imodium on as-needed basis Family History Father Heart disease Social History Smoking and tobacco/nicotine status: former use of tobacco/nicotine Alcohol intake: former Household members: family Housing: House Physical Exam Const: COMMON NORMALS: no acute distress GENERAL APPEARANCE: cooperative; not ill appearing and not frail appearing HENMT: COMMON NORMALS: normocephalic, atraumatic and Normal external nose present HEAD & SCALP: normocephalic and atraumatic FACE & SINUS: normal facial exam and face symmetric NOSE: Normal external nose present Eye: COMMON NORMALS: Equal, round and reactive pupils present and EOMs intact bilaterally PUPIL: Yes Equal, round and reactive pupils present Neck/C-Spine: GENERAL: Yes trachea midline Chest: CHEST: Yes Symmetrical chest wall rise Resp: COMMON NORMALS: normal respiratory effort, No retractions, No use of accessory muscles and clear to auscultation bilaterally AUSCULTATION: clear to auscultation bilaterally Cardio: COMMON NORMALS: regular rate and regular rhythm RATE: regular rate RHYTHM: regular rhythm GI: INSPECTION: Yes abdominal distension PALPATION: Yes Tenderness to palpation present (GI) (Generalized) and Yes Guarding due to palpation present (GI) Extremity: COMMON NORMALS: no pedal edema Neuro: ROD COMA SCALE: document GCS findings Rod coma scale eye opening: Spontaneous Rod coma scale verbal response: Orientated [place] coma scale motor response: Obey commands Rod coma scale total score: 15 SENSORY EXAM: Yes extremities (intact) Psych: COMMON NORMALS: speech normal SPEECH: Yes normal speech Skin: COMMON NORMALS: no rashes or lesions noted GENERAL SKIN EXAM: no rashes or lesions noted Course Vital Signs: Vital signs: Vital Signs Temperature 98.5 F 12/06/24 17:04 Pulse Rate 61 12/06/24 22:10 Blood Pressure 150/71 12/06/24 22:10 Pulse Oximetry 97 12/06/24 22:10 Oxygen Delivery Me thod Room Air 12/06/24 21:00 MDM - Abdominal Pain Medical Decision Making 54-year-old dialysis patient with generalized abdominal pain. No leukocytosis. White blood cell count is 7.6. Hemoglobin 10.3, stable. He does make urine. No urinary tract infection. Potassium is 5.4. CRP is 63. Lipase is elevated. CT does not show any pancreatic inflammation. There is hepatic cirrhosis with portal hypertension ascites and anasarca. Likely the cause of his belly pain. He will follow a liquid diet. He has dialysis tomorrow. Hopefully extra volume can be taken off to mitigate the ascites. He will return for worsening symptoms. Lab Data 12/06/24 18:40 12/06/24 18:40 Labs/Radiology: Radiology Impressions Abdomen X-Ray 12/06/24 18:21 IMPRESSION: No plain film evidence of acute intra-abdominal or pelvic process. Abdomen/Pelvis CT 12/06/24 18:54 IMPRESSION: 1. Hepatic cirrhosis with portal hypertension manifested by splenomegaly, ascites, and anasarca. 2. Trace hyperdensity in the dependent portions of pelvic ascites may represent trace blood. 3. Other nonemergent findings above. Laboratory Results WBC 7.55 10^3/uL (3.29-11.43) 12/06/24 18:40 RBC 3.58 10^6/uL (3.85-5.65) L 12/06/24 18:40 Hgb 10.30 g/dL (11.27-16.99) L 12/06/24 18:40 Hct 34.0 % (37-53) L 12/06/24 18:40 MCV 95.0 fl (82-101) 12/06/24 18:40 MCH 28.8 pg (27-33) 12/06/24 18:40 MCHC 30.3 g/dL (30-55) 12/06/24 18:40 RDW 18.8 % (12.1-15.1) H 12/06/24 18:40 Plt Count 134 10^3/cmm (157-399) L 12/06/24 18:40 MPV 11.3 fL (7.4-10.4) H 12/06/24 18:40 Neut % (Auto) 72.6 % 12/06/24 18:40 Lymph % (Auto) 17.2 % 12/06/24 18:40 [place] % (Auto) 7.7 % 12/06/24 18:40 Eos % (Auto) 1.7 % 12/06/24 18:40 Baso % (Auto) 0.3 % 12/06/24 18:40 Neut # (Auto) 5.48 10^3/uL (1.8-7.7) 12/06/24 18:40 Lymph # (Auto) 1.3 10^3/uL (0.8-4.8) 12/06/24 18:40 [place] # (Auto) 0.6 10^3/uL (0.2-0.9) 12/06/24 18:40 Eos # (Auto) 0.1 10^3/uL (0.0-0.8) 12/06/24 18:40 Baso # (Auto) 0.0 10^3/uL (0.0-0.1) 12/06/24 18:40 Nucleated RBC % (auto) 0 % 12/06/24 18:40 Nucleated RBCs # 0.0 /100WBC 12/06/24 18:40 Sodium 138 mmol/L (136-145) 12/06/24 18:40 Potassium 5.4 mmol/L (3.5-5.1) H 12/06/24 18:40 Chloride 99 mmol/L (98-107) 12/06/24 18:40 Carbon Dioxide 26 mmol/L (22-29) 12/06/24 18:40 Anion Gap 18.4 (5-19) 12/06/24 18:40 BUN 58 mg/dL (6-20) H 12/06/24 18:40 Creatinine 3.4 mg/dL (0.7-1.2) H 12/06/24 18:40 GFR Calculation 18.9 mL/min (90-130) L 12/06/24 18:40 Glucose 242 mg/dL (65-115) H 12/06/24 18:40 Calculated Osmolality 310 mOsm/kg (285-295) H 12/06/24 18:40 Calcium 8.6 mg/dL (8.5-10.5) 12/06/24 18:40 Total Bilirubin 0.8 mg/dL (0.15-1.2) 12/06/24 18:40 AST 45 U/L (0-40) H 12/06/24 18:40 ALT 46 U/L (0-41) H 12/06/24 18:40 Alkaline Phosphatase 198 U/L (40-130) H 12/06/24 18:40 C-Reactive Protein 63.4 mg/L (0.0-4.9) H 12/06/24 18:40 Total Protein 7.4 g/dL (6.6-8.7) 12/06/24 18:40 Albumin 3.4 g/dL (3.5-5.2) L 12/06/24 18:40 Globulin 4.0 g/dL (1.3-4.6) 12/06/24 18:40 Lipase 483 U/L (13-60) H 12/06/24 18:40 Urine Color Yellow (Yellow) 12/06/24 19:20 Urine Appearance Clear (CLEAR) 12/06/24 19:20 Urine pH 5.5 (5-7) 12/06/24 19:20 Ur Specific [place] 1.012 (1.005-1.030) 12/06/24 19:20 Urine Protein 2+ (Negative) A 12/06/24 19:20 Urine Glucose (UA) Negative (Normal) 12/06/24 19:20 Urine Ketones Negative (Negative) 12/06/24 19:20 Urine Blood 2+ (Negative) A 12/06/24 19:20 Urine Nitrate Negative (Negative) 12/06/24 19:20 Urine Bilirubin Negative (Negative) 12/06/24 19:20 Urine Urobilinogen 0.2 mg/dL (Negative) 12/06/24 19:20 Ur Leukocyte Esterase Negative (Negative) 12/06/24 19:20 Urine RBC 6-10 /hpf (0-2) 12/06/24 19:20 Urine WBC 0-5 /hpf (0-5) 12/06/24 19:20 Ur Squamous Epith Cells 0-5 /hpf (0-5) 12/06/24 19:20 Amorphous Sediment Not Reportable 12/06/24 19:20 Urine Bacteria None seen /hpf (NONE) 12/06/24 19:20 Hyaline Casts 11.16 /lpf 12/06/24 19:20 All radiology interpretation(s) finalized by discharge Discharge Plan Discharge Patient Disposition: Home Clinical Impression: Abdominal pain, ESRD (end stage renal disease), Abdominal ascites, Pancreatitis Liver cirrhosis Qualifiers: Hepatic cirrhosis type: unspecified hepatic cirrhosis Ascites presence: unspecified Qualified Code(s): K74.60 - Unspecified cirrhosis of liver Condition: Stable Prescriptions: New hydrocodone-acetaminophen 5-325 mg tablet 1 tab PO Q8H PRN (Reason: pain) Qty: 7 0RF polyethylene glycol 3350 [Gavilax] 17 gram/dose powder 17 g PO DAILY Qty: 238 0RF Discontinued oxycodone 10 mg Tablet 10 mg PO Q4H PRN (Reason: Pain) No Action escitalopram oxalate 5 mg tablet 5 mg PO DAILY Qty: 30 4RF cholecalciferol (vitamin D3) 1,250 mcg (50,000 unit) capsule 50,000 mcg PO Q7D Qty: 4 4RF pantoprazole [Protonix] 40 mg tablet,delayed release (DR/EC) 40 mg PO BID Qty: 180 3RF doxazosin 8 mg tablet 8 mg PO DAILY Qty: 30 4RF gabapentin 100 mg capsule 100 mg PO TID Qty: 90 3RF albuterol sulfate 90 mcg/actuation Hfa Aerosol Inhaler 2 puff INHALATION Q4H PRN (Reason: Shortness Of Breath) cyclobenzaprine 10 mg tablet 10 mg PO BID PRN (Reason: Spasms) lidocaine [Lidocaine Pain Relief] 4 % adhesive patch,medicated 1 patch TOPICAL Q12H PRN (Reason: Pain) ferrous sulfate [FeroSul] 325 mg (65 mg iron) tablet 325 mg PO .QOD RenaPlex 800 mcg- 12.5 mg tablet 1 tab PO DAILY loperamide 2 mg capsule See Rx Instructions .ROUTE .COMPLEX PRN (Reason: Diarrhea) Rx Instructions: TAKE TWO CAPSULES (4mg) BY MOUTH ONCE NEEDED FOR diarrhea. potassium chloride 10 mEq tablet extended release 10 meq PO DAILY hydroxyzine HCl 25 mg tablet 25 mg PO BEDTIME PRN (Reason: Insomnia) atorvastatin 40 mg Tablet 40 mg PO BEDTIME 30 Days Qty: 30 0RF clopidogrel 75 mg Tablet 75 mg PO DAILY 30 Days Qty: 30 0RF amlodipine 5 mg Tablet 5 mg PO DAILY 30 Days Qty: 30 0RF aspirin 81 mg Tablet,Delayed Release (Dr/Ec) 81 mg PO DAILY 30 Days Qty: 30 0RF benzonatate 100 mg Capsule 200 mg PO Q8H PRN (Reason: cough) 5 Days Qty: 30 0RF losartan 50 mg Tablet 50 mg PO DAILY 30 Days Qty: 30 0RF polyethylene glycol 3350 17 gram Powder In Packet 17 g PO DAILY 30 Days Qty: 30 0RF isosorbide mononitrate 30 mg Tablet Extended Release 24 Hr 30 mg PO DAILY 30 Days Qty: 3 0RF nitroglycerin 0.4 mg Tablet, Sublingual 0.4 mg sublingual Q5M PRN (Reason: Chest Pain) 30 Days Qty: 30 0RF carvedilol 25 mg tablet 25 mg PO BID 30 Days Qty: 60 0RF bumetanide 2 mg tablet 1 mg PO DAILY 30 Days Qty: 15 0RF insulin lispro 100 unit/mL Insulin Pen See Rx Instructions .ROUTE .COMPLEX 30 Days Qty: 15 0RF Rx Instructions: inject, subut, three times daily, after meals, based on moderate dose insulin sliding scale insulin glargine [Lantus Solostar U-100 Insulin] 100 unit/mL (3 mL) Insulin Pen 10 unit SUBCUT BID 30 Days Qty: 6 0RF glucagon HCl [Glucagon (HCl) Emergency Kit] 1 mg recon soln 1 mg IM Q20M PRN (Reason: hypoglycemia) Qty: 1 0RF Rx Instructions: until target blood sugar attained sennosides [Laxative (sennosides)] 8.6 mg tablet 8.6 mg PO BID 30 Days Qty: 60 0RF Discharge Orders: Discharge ED (Routine); Ordered 12/06/24 Ordered By: Anderson Gregory Referrals: Corinne Nicholson, EVENT REPRESENTATIVE [Primary Care Provider, Nurse Practitioner] - 1-3 days Patient Instructions: Pancreatitis (ED), Ascites (ED), Abdominal Pain (ED), Opioid Safety, Pain Management, Patient Portal & Anitra Instructions Activity Restrictions/Additional Instructions: Your CT scan showed that you have extra fluid in your belly which is likely causing your pain. There is also mild inflammation of your pancreas by enzymes, and that does not show up on CT scan. Follow a liquid diet for 48 hours. Extra volume could be taken off if needed and dialysis tomorrow because of the fluid buildup on your belly. Return for fever greater than 100, vomiting liquids or medications, worsening pain despite treatment, other concerning symptoms. See your doctor later this week. Print Language: Puerto Rican Coding Level of Care Code ED Decator Operator for Josesito Puente
[2024-12-06] MEDS: iohexol 350 mg/mL 500 mL Btl (per mL) IV (19:31)
[2024-12-06 19:44] LABS: Glucose Urine UA Negative (Normal); Nitrate Urine Negative (Negative); Specific Gravity, Urine 1.012 (1.005-1.030)
[2024-12-06 19:50] LABS: Add Urine Microscopic? YES
[2024-12-06 20:30] LABS: UA Slide Review UA Slide Review Perf
[2024-12-06] MEDS: ondansetron 2 mg/ML SDV 2 mL 4 MG IVP (21:28)
[2024-12-06] MEDS: morphine 4 mg/mL SDV 1 mL IVP (21:28)
== END 2024-12-06 22:21 | disposition home or self-care (01) ==
PROVIDERS: Emergency Medicine; Emergency Provider Emergency Medicine; PCP Nurse Practitioner
DX: R10.9 Unspecified abdominal pain (principal); R18.8 Other ascites; K85.90 Acute pancreatitis without necrosis or infection, unspecified; K74.60 Unspecified cirrhosis of liver; E11.22 Type 2 diabetes mellitus with diabetic chronic kidney disease; I12.0 Hypertensive chronic kidney disease with stage 5 chronic kidney disease or end stage renal disease; N18.6 End stage renal disease; Z87.891 Personal history of nicotine dependence
CPT/HCPCS: 74018; 74177; 80053; 81001; 83690; 85025; 86140; 93005; 96374; 96375; 99285; J2270; J2405

== ENCOUNTER 2024-12-15 01:38 | Observation (INO) | payer BC, MEDICAID, SELFPAY ==
[2024-12-15] VITALS (16 sets, daily range): BP systolic 108–155; BP diastolic 65–85; PULSE 59–76; RESP 12–22; TEMP 36–37.1; O2SAT 95–100; BMI 31.1; BMI 32.2
--- NOTE | 2024-12-15 01:39 | ECG_ITS ---
[facility] 2024-[facility]15 Pat Name: Guiod Whalen Department: Room: Gender: Male Mgmt Specialist: : 1970 Requested By: Anderson Crum Order Number: [id number] New MD: Raul Sánchez M.D. Measurements Intervals [place] Rate: 74 P: 32 IN: 142 QRS: 0 QRSD: 101 T: -3 QT: 406 QTc: 452 Interpretive Statements SINUS RHYTHM MINIMAL ST DEPRESSION [0.025+ mV ST DEPRESSION] Compared to ECG 12/06/2024 17:13:14 Sinus bradycardia no longer present ST (T wave) deviation still present Electronically Signed On 12-17-2024 09:05:30 CDT by Raul Sánchez M.D. [email or web address]
--- OUTSIDE RECORDS SUMMARY | 2024-12-15 01:45 | XMS_ITS ---
Author Organization [facility] tina (HIE interaction) Address [address] [place] [address] Care Team Providers Care Combat Rifle Crewmember Name Role Phone Unavailable Unavailable Unavailable Allergies, Adverse Reactions, Alerts This patient has no known allergies or adverse reactions. Problems This patient has no known problems.
--- OUTSIDE RECORDS SUMMARY | 2024-12-15 01:45 | XMS_ITS | Encounter Summary ---
Author Organization [facility], [facility] Address [address] [place] [address] Phone Care Team Providers Care Artificial Insemination Technician Name Role Phone LynCorinne Janine BUSINESS ANALYSIS ANALYST Primary Care Provider [phone] Encounter Details Date Type Department Care Team (Late st Contact Info) Description 12/04/2024 TCM in Dialysis Clinic [facility], [facility] [address] [place] [address] Radha Wayne COMPLIANCE ANALYST [address] [place] [address] Social History Tobacco Use Types Packs/Day Years Used Date Smoking Tobacco: Never Smokeless Tobacco: Never Alcohol Use Standard Drinks/Week Comments Not Currently 0 (1 standard drink = 0.6 oz pur e alcohol) Sex and Gender Information Value Date Recorded Sex Assigned at Not on file Legal Sex Male 10:20 AM EDT Gender Identity Not on file Sexual Orientation Not on file documented as of this encounter Progress Notes * Radha Wayne NP - 12/04/2024 12:00 AM CDT Patient: Guido Whalen, 1970, 54y, M Dialysis Location: [place] Attending Fur Trapper: Efren Perez Service Date: 12/04/2024 Service Provider: Radha Wayne NP I met face to face with the patient today. INITIAL PATIENT CONTACT This face to face visit occurred within 2 business days of the patient?s discharge HOSPITALIZATION SUMMARY Patient has transitioned in the past 30 days from: Hospital. Setting patient transitioned to: Home. Admission Date: 11/24/2024 Discharge Date: 12/02/2024 Reason for admission: HF and NSTEMI Discharge diagnosis: I50.20 Unspecified systolic (congestive) heart failure I21.4 Non-ST elevation (NSTEMI) myocardial infarction Discharge information reviewed: No outstanding diagnostic tests and treatments Comments: Patient admitted to [facility] for decompensated HF and NSTEMI. Underwent PCI. He is feeling well. LE swelling and erythema resolved. Off sporonox now. DIAGNOSES Conditions addressed during visit: I21.4 Non-ST elevation (NSTEMI) myocardial infarction Comments: Monitor for recurrent CP. Continue plavix, ASA, BB. Follow up with cardiology. MEDICATIONS Discharge med list reviewed - changes reconciled and discussed with patient. Active treatment medication orders reviewed - no changes. Home Medications: sennosides 8.6 mg, by mouth, Take 1 capsule twice a day polyethylene glycol 3350 17 gram, by mouth, Take 1 packet once a day nitroglycerin 0.4 mg, under tongue, Take 1 tablet as directed q5min as needed for chest pain losartan 50 mg, by mouth, Take 1 tablet once a day isosorbide mononitrate 10 mg, by mouth, Take 3 tablet once a day Glucagon (HCl) Emergency Kit (glucagon hcl) 1 mg, intramuscularly, Inject 1 mg as directed every 20min as needed. clopidogrel 75 mg, by mouth, Take 1 tablet once a day amlodipine 5 mg, by mouth, Take 1 tablet once a day insulin lispro 100 unit/mL, subcutaneously, Inject four times a day per sliding scale. insulin glargine 100 unit/mL (3 mL), subcutaneously, Inject 10 unit twice a day Coreg (carvedilol) 25 mg, by mouth, Take 1 tablet twice a day Hold for SBP <100. bumetanide 1 mg, by mouth, Take 1 mg once a day RenaPlex (vit b zxcxrer-l-ndmtm ac-zinc) 800 mcg- 12.5 mg, by mouth, Take 1 tablet once a day gabapentin 100 mg, by mouth, Take 1 capsule three times a day doxazosin 4 mg, by mouth, Take 1 tablet every night hydrocodone-acetaminophen 5-325 mg, by mouth, Take 1 tablet four times a day TAKE 1 TABLET BY MOUTHEVERY 6 HOURS NEEDED FOR PAIN escitalopram oxalate 10 mg, by mouth, Take 1 tablet once a day as directed atorvastatin 40 mg, by mouth, Take 1 tablet once a day aspirin 81 mg, by mouth, Take 1 tablet once a day benzonatate 100 mg, by mouth, Take 2 capsule every eight hours as needed albuterol sulfate 90 mcg/actuation, as directed, Inhale 2 puff four times a day as needed for SOB or wheezing acetaminophen 325 mg, by mouth, Take 2 tablet every four to six hours as needed Allergies: No Known Allergies PHYSICAL EXAM Exam Performed. Vital Signs Reviewed. CV - Blood pressure noted. CV - RRR. EXT - No edema. DIALYSIS PRESCRIPTION Dry weight during admission reviewed - no change to EDW. CARE COORDINATION Comments: Missed PCP-he was advised to reschedule. Gave him handout with cardiology and ID follow up. Reviewed with him. Post discharge follow-up appointments reviewed with the patient. EDUCATION Education relevant to the discharge diagnosis provided to the patient or caregiver IMPRESSION & PLAN Comments: REBECCA on CKD, suspect will be ESRD. Continue HD MWF. Monitor monthly labs, follow trend. ASHD s/p NSTEMI AND PCI. Monitor for CP, continue ASA, Plavix, BB. Follow up with cardiology. Signed By: Radha Wayne NP on 12/04/2024 12:57:04 PM documented in this encounter Plan of Treatment Not on file documented as of this encounter Visit Diagnoses Not on filedocumented in this encounter Care Teams Artificial Insemination Technician Relationship Specialty Start Date End Date Corinne Nicholson FNP [address] [place] [id number] PCP - General Nutrition 09/23/24 documented as of this encounter
--- OUTSIDE RECORDS SUMMARY | 2024-12-15 01:45 | XMS_ITS | Clinical Summary ---
Author Organization [facility] Address [address] [place] [address] Phone Care Team Providers Care Hair Tinter Name Role Phone Unavailable Primary Care Provider [...]
--- OUTSIDE RECORDS SUMMARY | 2024-12-15 01:46 | XMS_ITS | Clinical Summary ---
Author Organization [facility], [facility] Address [address] [place] [address] Phone Care Team Providers Care In Store Marketing Associate Name Role Phone Corinne Nicholson [employer] Primary Care Provider [phone] Allergies Active Allergy Reactions Criticality Noted Date Comments Ketorolac GI intolerance,Nause a And Vomiting Medium 01/23/2012 Ketorolac Tromethamine Nausea And Vomiting,Vomiting Medium 01/23/2012 Shellfish Allergy Anaphylaxis High 08/26/2020 Shrimp Extract Anaphylaxis High 05/30/2021 Medications acetaminophen (TYLENOL) 500 MG tablet Take 500 mg by mouth every 4 (four) hours if needed 3 Active albuterol HFA (PROVENTIL HFA;VENTOLIN HFA) 108 (90 Base) MCG/ACT inhaler Inhale 2 puffs every 4 (four) hours if needed 5 Active carvedilol (COREG) 12.5 MG tablet Take 12.5 mg by mouth in the morning and 12.5 mg in the evening. Take with meals. 5 Active diphenhydrAMINE- zinc acetate cream Apply topically every 6 (six) hours if needed 5 Active doxazosin (CARDURA) 8 MG tablet Take 8 mg by mouth at bed time 5 Active escitalopram (LEXAPRO) 10 MG tablet Take 10 mg by mouth 1 (one) time each day 4 Active gabapentin (NEURONTIN) 300 MG capsule Take 600 mg by mouth 5 Active loperamide (IMODIUM) 2 MG capsule Take 4 mg by mouth 5 Active melatonin 3 MG tablet Take 3 mg by mouth at bed time 5 Active ondansetron ODT (ZOFRAN-ODT) 8 MG dispersible tablet Take 8 mg by mouth every 8 (eight) hours if needed 5 Active pantoprazole (PROTONIX) 40 MG EC tablet Take 40 mg by mouth in the morning and 40 mg in the evening. Active potassium chloride 10 MEQ CR tablet Take 10 mEq by mouth 1 (one) time each day 5 Active gabapentin (NEURONTIN) 100 MG capsule Take 100 mg by mouth 1 (one) time each day 5 Active itraconazole (SPORANOX) 10 MG/ML solution Take 200 mg by mouth in the morning and 200 mg in the evening. 5 Active Insulin Lispro 100 UNIT/ML solution Inject 4 Units as directed 3 (three) times a day if needed (sliding scale) Active Turmeric (QC Tumeric Complex) 500 MG capsule Take 500 mg by mouth 1 (one) time each day Active bumetanide (BUMEX) 2 MG tablet Take 1 tablet (2 mg total) by mouth in the morning and 1 tablet (2 mg total) in the evening. 60 tablet 5 5 Active aspirin (ST JOURDAN) 81 MG EC tablet Take 81 mg by mouth in the morning. Active atorvastatin (LIPITOR) 40 MG tablet Take 40 mg by mouth 1 (one) time each day Active carBAMazepine (TEGretol) 200 MG tablet Take 200 mg by mouth in the morning. 4 Active hydrALAZINE 25 MG tablet Take 25 mg by mouth in the morning and 25 mg in the evening and 25 mg before bedtime. Active insulin glargine (LANTUS) 100 UNIT/ML injection Inject under the skin every night Active Active Problems No known active problems Encounters Date Type Department Care Team Description 12/11/2024 Treatment [facility] [address] [place] [address] Radha Wayne NP 12/09/2024 Documentation Only [facility] [address] [place] [phone] Suzie Cee 12/07/2024 Orders Only [facility] [address] [place] [address] Efren Perez MD 12/04/[address] [facility], [facility] [address] [place] [address] Efren Perez MD 12/04/2024 TCM in Dialysis Clinic [address] [place] [address], [facility] [address] [place] [address] Radha Wayne, SKYLA 12/04/[address] [place] [address], [facility] [address] [place] [address] Radha Wayne, SKYLA 11/23/[address] [facility], [facility] [address] [place] [address] Efren Perez MD 11/18/[address] [place] [address], [facility] [address] [place] [address] Radha Wayne, SKYLA 11/16/[address] [facility], [facility] [address] [place] [address] Efren Perez MD 11/11/2024 Treatment [facility], [facility] [address] [place] [address] Efren Peerz MD 11/09/[address] [facility], [facility] [address] [place] [address] Efren Perez MD 11/04/[address] [facility], [facility] [address] [place] [address] Radha Wayne, SKYLA 11/04/[address] [facility], [facility] [address] [place] [address] Efren Perez MD 11/04/2024 Treatment [facility], [facility] [address] [place] [address] Radha Wayne, SKYLA 11/03/2024 Office Communication [facility], [facility] [address] [place] [address] Radha Wayne, SKYLA 11/02/2024 Orders Only [facility], [facility] [address] [place] [address] Efren Perez MD 10/30/2024 [facility] [address] [place] [address] Radha Wayne, SKYLA 10/26/[address] [facility] [address] [place] [address] Efren Perez MD 10/21/2024 [facility] [address] [place] [address] Efren Perez MD 10/20/2024 Documentation Only [facility], [facility] [address] [place] [address] Ella Aguirre 10/20/2024 Telephone [facility], [facility] [address] [place] [address] Ella Aguirre 10/19/2024 Orders Only [facility], [facility] [address] [place] [address] Efren Perez MD 10/12/2024 Documentation Only [facility], [facility] [address] [place] [address] Marco Loo 10/12/2024 Telephone [facility], [facility] [address] [place] [address] Ella Aguirre 10/07/2024 Documentation Only [facility], [facility] [address] [place] [address] Ella Aguirre 10/07/2024 Results [facility], [facility] [address] [place] [id number] Radha Wayne NP 10/07/2024 Documentation Only [facility], [facility] [address] [place] [address] Ella Aguirre 09/29/[address] [facility], [facility] [address] [place] [id number] Marco Loo 09/23/2024 12:50 PM CDT Office Visit [facility], [facility] [address] [place] [phone] Efren Perez MD Chronic kidney disease stage 4 (HCC) (Primary Dx) 09/16/2024 Documentation Only [facility], [facility] [address] [place] [address] Ella Aguirer from Last 3 Months Immunizations Immunization Administration Dates Next Due Tdap 01/23/2019 Social History Tobacco Use Types Packs/Day Years Used Date Smoking Tobacco: Never Smokeless Tobacco: Never Tobacco Cessation:Counseling Given: Not Answered Alcohol Use Standard Drinks/Week Comments Not Currently 0 (1 standard drink = 0.6 oz pur e alcohol) Sex and Gender Information Value Date Recorded Sex Assigned at Not on file Legal Sex Male 10:20 AM EDT Gender Identity Not on file Sexual Orientation Not on file Last Filed Vital Signs Vital Sign Reading Time Taken Comments Blood Pressure 140/80 09/23/2024 1:22 PM CDT Pulse 70 09/23/2024 1:22 PM CDT Temperature - - Respiratory Rate - - Oxygen Saturation 94% 09/23/2024 1:22 PM CDT Inhaled Oxygen Concentration - - Weight 118 kg (259 lb 6.4 oz) 09/23/2024 1:22 PM CDT Height 172.7 cm (5' 8 ) 09/23/2024 1:22 PM CDT Body Mass Index 39.44 09/23/2024 1:22 PM CDT Plan of Treatment Health Maintenance Due Date Last Done Comments Pneumococcal Vaccine: 50+ Ye ars (1 of 2 - PCV) 1988 Hepatitis B Vaccine (1 of 5 - Risk Dialysis 4-dose series) 1989 Colorectal Cancer Screening: Annual FOBT 2018 Colorectal Cancer Screening: Colonoscopy 2018 Colorectal Cancer Screening: Sigmoidoscopy 2018 Diabetes: Ophthalmology Exam 09/07/2024 Diabetes: Pedal Pulse Checked 09/07/2024 Diabetes: Sensory Foot Exam 09/07/2024 Diabetes: Visual Foot Exam 09/07/2024 Diabetes: Hemoglobin A1C 01/19/2025 025, 10/17/2024, 06/13/2024 Influenza Vaccine (#1) 2025 Procedures Procedure Name Priority Date/Time Associated Diagnosis Comments CHEMISTRY Routine 12/07/2024 IMMUNO CHEMISTRY Routine 12/07/2024 HEMATOLOGY Routine 12/07/2024 CHEMISTRY Routine 12/04/2024 HEMATOLOGY Routine 12/04/2024 URINE CLEARANCE Routine 11/23/2024 CHEMISTRY Routine 11/23/2024 PATIENT INFORMATION Routine 11/23/2024 HEMATOLOGY Routine 11/23/2024 PATIENT INFORMATION Routine 11/23/2024 URINE CLEARANCE Routine 11/16/2024 HEMATOLOGY Routine 11/16/2024 CHEMISTRY Routine 11/16/2024 PATIENT INFORMATION Routine 11/16/2024 PATIENT INFORMATION Routine 11/16/2024 [facility] RESULTS Routine 11/09/2024 HD KINETICS Routine 11/09/2024 POST CHEMISTRY Routine 11/09/2024 HEMATOLOGY Routine 11/09/2024 URINE CLEARANCE Routine 11/09/2024 CHEMISTRY Routine 11/09/2024 PATIENT INFORMATION Routine 11/09/2024 PATIENT INFORMATION Routine 11/09/2024 [facility] LAB RESULTS Routine 11/02/2024 URINE CLEARANCE Routine 11/02/2024 HD KINETICS Routine 11/02/2024 POST CHEMISTRY Routine 11/02/2024 IMMUNO CHEMISTRY Routine 11/02/2024 CHEMISTRY Routine 11/02/2024 HEMATOLOGY Routine 11/02/2024 PATIENT INFORMATION Routine 11/02/2024 PATIENT INFORMATION Routine 11/02/2024 URINE CLEARANCE Routine 10/26/2024 HEMATOLOGY Routine 10/26/2024 CHEMISTRY Routine 10/26/2024 PATIENT INFORMATION Routine 10/26/2024 PATIENT INFORMATION Routine 10/26/2024 SPECIAL CHEMISTRY Routine 10/19/2024 HEMATOLOGY Routine 10/19/2024 HD KINETICS Routine 10/19/2024 POST CHEMISTRY Routine 10/19/2024 TRACE ELEMENTS Routine 10/19/2024 CHEMISTRY Routine 10/19/2024 IMMUNO CHEMISTRY Routine 10/19/2024 CHEMISTRY Routine 10/19/2024 BNP PROHORMONE Routine 09/29/2024 BASIC METABOLIC PANEL (BMP) (EXTERNAL LAB ENTRY) Routine 09/29/2024 POCT URINALYSIS, AUTO, W/O SCOPE Routine 09/23/2024 2:17 PM CDT Chronic kidney disease stage 4 (HCC) from Last 3 Months Results * IMMUNO CHEMISTRY (12/07/2024) Only the most recent of3 resultswithin the time period is included. Hep B Surface Ag Negative Negative [facility] 12/07/2024 12/08/2024 12: 47 PM CDT Narrative [facility] - 12/08/2024 Unless otherwise specified, test(s) performed at: [facility], [address] [place] [address] NOVELTY TWISTER TENDER: Augustin Finney M.D. For any questions, please call customer service at FREQUENCY:MONTHLY Resulting Agency Comment Specimen source: Serum us Efren Perez MD LAB BLOOD ORDERABLES Final Result [facility] See order comments or contact performing lab Unknown, [place] * (ABNORMAL) HEMATOLOGY (12/07/2024) Only the most recent of8 resultswithin the time period is included. Neutrophils 61.6 40.0 - 75.0 % [facility] Lymphocytes Relative 18.6(L) 19.0 - 48.0 % [facility] Monocytes 10.6(H) 3.0 - 10.0 % [facility] Eosinophils Relative 4.3 0.0 - 7.0 % [facility] Basophils Relative 2.0(H) 0.0 - 1.5 % [facility] DHARA 2.9 0.0 - 4.0 % [facility] WBC 3.05(L) 4.80 - 10.80 1000/mcL [facility] RBC 3.38(L) 4.70 - 6.10 mill/mcL [facility] Hematocrit 33.0(L) 42.0 - 52.0 % [facility] MCV 98 80 - 100 fl [facility] MCH 29.3 27.0 - 31.0 pg [facility] MCHC 30.0 30.0 - 36.0 g/dL [facility] RDW 17.6(H) 11.5 - 14.5 % [facility] Hemoglobin 9.9(L) 14.0 - 18.0 g/dL [facility] Hemoglobin x 3 29.7(L) 42.0 - 54.0 % [facility] Platelets 122(L) 130 - 400 1000/mcL [facility] 12/07/2024 12/08/2024 12: 38 PM CDT Narrative [facility] - 12/08/2024 Unless otherwise specified, test(s) performed at: [facility], [address] [place] [address] NOVELTY TWISTER TENDER: Augustin Finney M.D. For any questions, please call customer service at FREQUENCY:MONTHLY Resulting Agency Comment Specimen source: Blood us Efren Perez MD LAB BLOOD ORDERABLES Final Result [facility] See order comments or contact performing lab Unknown, [place] * (ABNORMAL) [facility] Chemistry (12/07/2024) Only the most recent of9 resultswithin the time period is included. BUN 65(H) 6 - 19 mg/dL [facility] Creatinine 3.75(H) 0.60 - 1.30 mg/dL [facility] BUN/Creatinine Ratio 17.3 10.0 - 20.0 [facility] Sodium 135(L) 136 - 145 mEq/L [facility] Potassium 5.4(H) 3.5 - 5.1 mEq/L [facility] Chloride 100 96 - 108 mEq/L [facility] Bicarbonate (CO2) 24 22 - 29 mEq/L [facility] Calcium 8.2(L) 8.4 - 10.2 mg/dL [facility] Corrected Calcium 8.9 8.4 - 10.2 mg/dL [facility] Comment: Corrected Calcium is not equivalent to measured Ionized Calcium. Phosphorus 6.0(H) 2.6 - 4.5 mg/dL [facility] Calcium Phosphorus Product 49 0 - 54 [facility] Calcium Phosporus Product, Cor 53 0 - 54 [facility] Albumin 3.1(L) 3.5 - 5.2 g/dL [facility] Glucose 342(H) 70 - 100 mg/dL [facility] Iron 34(L) 45 - 160 mcg/dL [facility] UIBC 173 155 - 355 mcg/dL [facility] TIBC 207 185 - 515 mcg/dL [facility] Iron Saturation (TSat) 16(L) 20 - 55 % [facility] 12/07/2024 12/08/2024 12: 47 PM CDT Narrative [facility] - 12/08/2024 Unless otherwise specified, test(s) performed at: [facility], [address] [place] [address] NOVELTY TWISTER TENDER: Augustin Finney M.D. For any questions, please call customer service at FREQUENCY:MONTHLY Resulting Agency Comment Specimen source: Serum us Efren Perez MD LAB BLOOD ORDERABLES Final Result [facility] See order comments or contact performing lab Unknown, [place] * (ABNORMAL) URINE CLEARANCE (11/23/2024) Only the most recent of5 resultswithin the time period is included. Creatinine, Urine Timed 78.5 mg/dL [facility] Creatinine, 24H Ur 0.6(L) 0.7 - 1.8 g/24 hr [facility] Creatinine Clear, Urine 9.7 mL/min [facility] Creat Clear, Urine Norm 7.9(L) 94.0 - 122.0 mL/min [facility] 11/23/2024 11/24/2024 9:5 5 AM CDT Narrative [facility] - 11/24/2024 Unless otherwise specified, test(s) performed at: [facility], [address] [place] [id number] NOVELTY TWISTER TENDER: Augustin Finney M.D. For any questions, please call customer service at FREQUENCY:OTHER Resulting Agency Comment Specimen source: Urine Efren Perez MD LAB URINE ORDERABLES Final Result Performing Organization Address [facility] de Phone Number [facility] See order comments or contact performing lab Unknown, [place] * PATIENT INFORMATION (11/23/2024) Only the most recent of10 resultswithin the time period is included. Pathologist [facility] Patient BSA 2.12 sq. M. [facility] Comment: Normalized values are calculated using the patient's actual BSA and normalized to the average BSA of 1.73m2. 11/23/2024 11/24/2024 9:2 8 AM CDT Narrative [facility] - 11/24/2024 Unless otherwise specified, test(s) performed at: [facility], [address] [place] [id number] NOVELTY TWISTER TENDER: Augustin Finney M.D. For any questions, please call customer service at FREQUENCY:OTHER Resulting Agency Comment Specimen source: PD Fluid Efren Perez MD LAB BLOOD ORDERABLES Final Result Performing Organization Address [facility] Co de Phone Number [facility] See order comments or contact performing lab Unknown, [place] * HD KINETICS (11/09/2024) Only the most recent of3 resultswithin the time period is included. % Urea Reduction 69 65 - 80 % [facility] 11/09/2024 11/11/2024 9:0 2 AM CDT Narrative Resulting Agency Comment Specimen source: Plasma Efren Perez MD LAB BLOOD ORDERABLES Final Result Performing Organization Address City/[facility]/ZIP Co de Phone Number [facility] See order comments or contact performing lab Unknown, [place] * POST CHEMISTRY (11/09/2024) Only the most recent of3 resultswithin the time period is included. Pathologist [facility] BUN Post Dialysis 19 6 - 19 mg/dL [facility] 11/09/2024 11/11/2024 9:0 2 AM CDT Narrative [facility] - 11/11/2024 Unless otherwise specified, test(s) performed at: [facility], [address] [place] [address] NOVELTY TWISTER TENDER: Augustin Finney M.D. For any questions, please call customer service at FREQUENCY:OTHER Resulting Agency Comment Specimen source: Plasma Efren Perez MD LAB BLOOD ORDERABLES Final Result Performing Organization Address [facility] Co de Phone Number [facility] See order comments or contact performing lab Unknown, [place] * [facility] Lab Results (11/09/2024) Only the most recent of2 resultswithin the time period is included. [facility] nPCR_HD 0.85 [facility] eKdrt/V 1.18 [facility] spKt/V Gotch 1.35 [facility] [place] PCR 69.52 [facility] eKt/V ([place]) 1.20 [facility] eKt/V Gotch 1.18 [facility] e Center WSTDKT/V 2.3 [facility] eNPCR 0.80 [facility] spKt/V ([place]augirdas II) 1.37 [facility] 11/09/2024 11/09/2024 [facility] Ordering Provider LAB BLOOD ORDERABLES Final Result [facility] Contact Performing lab Unknown, [place] * (ABNORMAL) SPECIAL CHEMISTRY (10/19/2024) [facility] Hemoglobin A1C 7.0(H) 4.8 - 5.9 % [facility] 10/19/2024 10/21/2024 11: 24 AM CDT Narrative [facility] - 10/21/2024 Unless otherwise specified, test(s) performed at: [facility], [address] [place] [id number] NOVELTY TWISTER TENDER: Augustin Finney M.D. For any questions, please call customer service at FREQUENCY:MONTHLY Resulting Agency Comment Specimen source: Blood Efren Perez MD LAB BLOOD BANK TEST O RDERABLES Final Result Performing Organization Address City/[facility]/ZIP Co de Phone Number [facility] See order comments or contact performing lab Unknown, [place] * TRACE ELEMENTS (10/19/2024) Pathologist [facility] Aluminum 6 0 - 10 mcg/L [facility] Comment: This test was developed and its performance characteristics determined by [facility]. It has not been cleared or approved by the FDA. The laboratory is regulated under CLIA as qualified to perform high complexity testing. This test is used for clinical purposes. It should not be regarded as investigational or for research. 10/19/2024 10/21/2024 10: 31 AM CDT Narrative [facility] - 10/21/2024 Unless otherwise specified, test(s) performed at: [facility], [address] [place] [id number] NOVELTY TWISTER TENDER: Augustin Finney M.D. For any questions, please call customer service at FREQUENCY:MONTHLY Resulting Agency Comment Specimen source: Serum Efren Perez MD LAB BLOOD ORDERABLES Final Result Performing Organization Address City/[facility]/ZIP Co de Phone Number [facility] See order comments or contact performing lab Unknown, [place] * Basic Metabolic Panel (BMP) (09/29/2024) Sodium 141 mEq/L Potassium 5.3 mEq/L Chloride 102 Carbon Dioxide 24 mmol/L Calcium 8.9 mg/dL BUN 37 mg/dL Creatinine 2..8 mg/dL Glucose 141 mg/dL eGFR Non-Afr [place] 23.6 Anion Gap 20.3 09/29/2024 Narrative Ella Aguirre - 09/29/2024 11:34 AM CDT [facility] Clinical Laboratory [address] [place] [address] [id number] [address] Annita Thompson, [employer] [facility] External Provider LAB BLOOD ORDERABLES Final Result * BNP Prohormone (09/29/2024) B Type Natriuretic Peptide (BNP) 8,857 Blood specimen (specimen) Venous blood / Unknown 09/29/2024 [facility] External Provider LAB BLOOD ORDERABLES Final Result * (ABNORMAL) POCT urinalysis auto, w/o scope (09/23/2024 2:17 PM CDT) Color, UA Yellow Clarity, UA Clear Glucose, UA 500 mg/dL Bilirubin, UA Negative Ketones, UA Negative Urine Specific [place] 1.015 Blood, UA Trace - Intact Thien/ul pH, UA 7.5 Protein, UA 300 3+ mg/dL Urobilinogen, UA 0.2 Leukocytes, UA Negative Nitrite, UA Negative Urine specimen (specimen) 09/23/2024 2:17 PM CDT Efren Perez MD POINT OF CARE TEST OR DERABLES Final Result from Last 3 Months Insurance [facility] ([id number]) Care Teams In Store Marketing Associate Relationship Specialty Start Date End Date Corinne Nicholson FNP [address] [place] [id number] PCP - General Nutrition 09/23/24
--- OUTSIDE RECORDS SUMMARY | 2024-12-15 01:46 | XMS_ITS | Clinical Summary ---
Author Organization [facility] [place] Florentin Address [address] [place] [address] Phone Care Team Providers Care Pig Sticker Name Role Phone Unavailable Primary Care Provider [...] meals 100 Each 10/18/19 25 Active Insulin Caldwell, Disposable, (Comfort EZ Pen Caldwell) 32 gauge x 5/32 Needle Inject insulin [...] Type Department Care Team Description 12/03/2024 Telephone [facility] V[facility] [place] [id number] [place] [phone] Anna Trammell MD Referral 11/30/2024 Orders Only [facility] [place] [address] [place] [phone] Anna Trammell MD Stage 4 chronic kidney disease (CMS/HCC) (Primary Dx) 11/25/2024 Abstract [facility] [place] [address] [place] [phone] Provider, Abstract 11/18/2024 Prep for Surgery [facility] [address] [place] [phone] Paty Vazquez DO Heart failure, unspecified HF chronicity, unspecified heart failure type (CMS/HCC) (Primary Dx); NSTEMI (non-ST elevated myocardial infarction) (CMS/HCC); 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 ( ) 10/15/2024 External Device Data STL ABSTRACTION Provider, Abstract 10/14/2024 External Device Data STL ABSTRACTION Provider, Abstract 10/14/2024 External Device Data STL ABSTRACTION Provider, Abstract 10/14/2024 External Device Data STL ABSTRACTION Provider, Abstract 10/13/2024 External Device Data STL ABSTRACTION Provider, Abstract 10/07/2024 11:32 PM CDT - 10/17/2024 4:56 PM CDT Hospital Encounter [facility] [address] [place] [address] Jaren Recinos MD Abbas, MD [...] Tobacco: Never Tobacco Cessation:Counseling Given: Not Answered Sex and Gender Information Value Date Recorded [...] Care Team (Late st Contact Info) Description 01/19/2025 10:00 AM CDT Ancillary Procedure [facility] [place] [address] [place] [address] Anna Trammell MD [address] [place] [address] 01/19/2025 11:00 AM CDT Office Visit [facility] [address] [place] [address] Anna Trammell MD [address] [place] [address] Health Maintenance Due Date Last [...] Screening 07/30/2034 Medical Devices Implanted Type Area Centrifugal Extractor Operator Device Identifier Shelf Expiration Date Model / Serial / Lot Cath Dialysis Glidepath 14.5fr 23cm [facility] [id number] - [id number] Implanted:Qty: 1 on 10/13/2024 by Wen Evans MD at [facility] Catheter Right: Chest Wall BARD ASHLEY VASC [id number] 02/23/2026 [id number] / / [id number] Procedures Procedure Name Priority Date/Time Associated Diagnosis [...] TROPONIN 2 HR, 5TH GEN Timed Study 3:41 AM CDT UNFRACTIONATED HEPARIN ACTIVITY Stat [...] of37 resultswithin the time period is included. [facility] GLUCOSE POC 163(H) 74 - 99 mg/dL 10/17/2024 11:17 AM CDT [facility] SPECIMEN SOURCE, GLUCOSE POC Capillary 10/17/2024 11:17 AM CDT [facility] Blood, whole 10/17/2024 11:1 7 AM CDT 10/17/2024 11:39 AM CDT Moiz Perry MD POINT OF CARE TESTING Final Result [facility] CLIA # [id number] [address] [place] [address] * (ABNORMAL) CBC WITH DIFFERENTIAL (10/17/2024 7:08 AM CDT) Only the most recent of7 resultswithin the time period is included. [facility] WBC 7.3 4.8 - 10.8 K/uL 10/17/2024 7:18 AM CDT [facility] RBC 2.78(L) 4.60 - 6.20 M/uL 10/17/2024 7:18 AM CDT [facility] HEMOGLOBIN 7.5(L) 14.0 - 18.0 g/dL 10/17/2024 7:18 AM [facility] HEMATOCRIT 25.0(L) 41.0 - 53.0 % 10/17/2024 7:18 AM [facility] MCV 89.9 84.0 - 103.0 fL 10/17/2024 7:18 AM [facility] MCH 27.0 27.0 - 34.0 pg 10/17/2024 7:18 AM [facility] MCHC 30.0 30.0 - 35.0 g/dL 10/17/2024 7:18 AM [facility] PLATELETS 143 140 - 440 K/uL 10/17/2024 7:18 AM [facility] MPV 10.5 8.9 - 12.8 fL 10/17/2024 7:18 AM [facility] RDW 15.8(H) 11.0 - 14.5 % 10/17/2024 7:18 AM [facility] RDW-STDEV 52.1 37.0 - 54.0 fL 10/17/2024 7:18 AM [facility] NEUTROPHILS 69 42 - 75 % 10/17/2024 7:18 AM [facility] LYMPHOCYTES 22(L) 24 - 44 % 10/17/2024 7:18 AM [facility] MONOCYTES 7 2 - 10 % 10/17/2024 7:18 AM [facility] EOSINOPHILS 2 0 - 7 % 10/17/2024 7:18 AM [facility] BASOPHILS 0 0 - 1 % 10/17/2024 7:18 AM [facility] IMMATURE GRANULOCYTES 1 0 - 2 % 10/17/2024 7:18 AM [facility] NEUTROPHIL ABSOLUTE 5.02 2.00 - 8.00 K/uL 10/17/2024 7:18 AM [facility] LYMPHOCYTE ABSOLUTE 1.60 1.20 - 4.00 K/uL 10/17/2024 7:18 AM CDT [facility] MONOCYTE ABSOLUTE 0.47 0.10 - 0.60 K/uL 10/17/2024 7:18 AM CDT [facility] EOSINOPHIL ABSOLUTE 0.11 0.00 - 0.70 K/uL 10/17/2024 7:18 AM CDT [facility] BASOPHILS ABSOLUTE 0.02 0.00 - 0.20 K/uL 10/17/2024 7:18 AM CDT [facility] IMMATURE GRANULOCYTES ABSOLUTE 0.06 0.00 - 0.10 K/uL 10/17/2024 7:18 AM CDT [facility] SMEAR REVIEWED: NA - Not Applicable 10/17/2024 7:18 AM CDT [facility] Blood Venipuncture / Unknown 10/17/2024 7:08 AM CDT 10/17/2024 7:13 AM CDT Efren Perez MD HEMATOLOGY ORDERABLES Final Result [facility] CLIA # [id number] [address] [place] [id number] * (ABNORMAL) HEMOGLOBIN A1C (10/17/2024 7:08 AM CDT) HEMOGLOBIN A1C 7.1(H) <=5.6 % 10/18/2024 8:48 AM CDT [facility] EST. AVG GLUCOSE, A1C 157 mg/dL 10/18/2024 8:48 AM CDT [facility] Blood Venipuncture / Unknown 10/17/2024 7:08 AM CDT 10/17/2024 7:13 AM CDT Narrative [facility] - 10/18/2024 8:48 AM CDT HGB A1C INTERPRETATION NORMAL: <5.7% PRE-DIABETES: 5.7 - 6.4% DIABETES: 6.5% OR GREATER us Moiz Perry MD CHEMISTRY ORDERABLES Final R esult Performing Organization Address [facility]/ZIP Co de Phone Number [facility] CLIA # [id number] [facility] [address] * MAGNESIUM LEVEL (10/17/2024 2:19 AM CDT) Only the most recent of9 resultswithin the time period is included. MAGNESIUM 1.9 1.6 - 2.6 mg/dL 10/17/2024 3:02 AM CDT [facility] Blood Venipuncture / Unknown 10/17/2024 2:19 AM CDT 10/17/2024 2:29 AM CDT Caitlyn FARLEYP CHEMISTRY ORDERABLES Final Result Performing Organization Address [facility] Co de Phone Number [facility] CLIA # [id number] [address] [address] * (ABNORMAL) RENAL FUNCTION PANEL (10/17/2024 2:19 AM CDT) Only the most recent of9 resultswithin the time period is included. SODIUM 137 136 - 145 mmol/L 10/17/2024 3:02 AM T [facility] POTASSIUM 3.9 3.5 - 5.1 mmol/L 10/17/2024 3:02 AM T [facility] CHLORIDE 101 98 - 107 mmol/L 10/17/2024 3:02 AM T [facility] CO2 23 22 - 29 mmol/L 10/17/2024 3:02 AM T [facility] CALCIUM 8.2(L) 8.6 - 10.0 mg/dL 10/17/2024 3:02 AM [facility] BUN 29(H) 6 - 20 mg/dL 10/17/2024 3:02 AM T [facility] CREATININE 2.22(H) 0.67 - 1.17 mg/dL 10/17/2024 3:02 AM T [facility] GLUCOSE 154(H) 74 - 99 mg/dL 10/17/2024 3:02 AM T [facility] ALBUMIN 3.0(L) 3.5 - 5.2 g/dL 10/17/2024 3:02 AM T [facility] PHOSPHORUS 2.3(L) 2.5 - 4.5 mg/dL 10/17/2024 3:02 AM T [facility] GFR 34(L) >=60 mL/min/1. 73 sq meter 10/17/2024 3:02 AM T [facility] Comment:eGFR calculated with 2020 CKD-EPI equation. Vegetarian diet, extremely high or low muscle mass, and may affect results. Cystatin C with Glomerular Filtration Rate is a suitable alternative for these patients. ANION GAP 13 9 - 20 mmol/L 10/17/2024 3:02 AM T [facility] Blood Venipuncture / Unknown 10/17/2024 2:19 AM CDT 10/17/2024 2:29 AM CDT Caitlyn Doty [facility] CHEMISTRY ORDERABLES Final Result [id number] [address] [place] [address] * PHOSPHORUS (10/14/2024 5:28 AM CDT) [facility] PHOSPHORUS 4.0 2.5 - 4.5 mg/dL 10/14/2024 6:30 AM T [facility] Blood Venipuncture / Unknown 10/14/2024 5:28 AM CDT 10/14/2024 5:48 AM CDT Caitlyn Doty [facility] CHEMISTRY ORDERABLES Final Result [facility] CLIA # [id number] [address] [address] [place] [address] * (ABNORMAL) COMPREHENSIVE METABOLIC PANEL (10/14/2024 5:28 AM CDT) SODIUM 134(L) 136 - 145 mmol/L 10/14/2024 6:30 AM T [facility] POTASSIUM 4.3 3.5 - 5.1 mmol/L 10/14/2024 6:30 AM T [facility] CHLORIDE 96(L) 98 - 107 mmol/L 10/14/2024 6:30 AM T [facility] CO2 25 22 - 29 mmol/L 10/14/2024 6:30 AM T [facility] CALCIUM 8.4(L) 8.6 - 10.0 mg/dL 10/14/2024 6:30 AM T [facility] BUN 66(H) 6 - 20 mg/dL 10/14/2024 6:30 AM T [facility] CREATININE 4.07(H) 0.67 - 1.17 mg/dL 10/14/2024 6:30 AM T [facility] GLUCOSE 218(H) 74 - 99 mg/dL 10/14/2024 6:30 AM T [facility] TOTAL PROTEIN 7.3 6.4 - 8.3 g/dL 10/14/2024 6:30 AM T [facility] ALBUMIN 3.1(L) 3.5 - 5.2 g/dL 10/14/2024 6:30 AM T [facility] BILIRUBIN TOTAL 0.5 0.0 - 1.0 mg/dL 10/14/2024 6:30 AM T [facility] ALKALINE PHOSPHATASE 203(H) 40 - 129 U/L 10/14/2024 6:30 AM T [facility] AST 19 10 - 50 U/L 10/14/2024 6:30 AM CDT [facility] ALT 6 <=50 U/L 10/14/2024 6:30 AM [facility] GFR 16(L) >=60 mL/min/1. 73 sq meter 10/14/2024 6:30 AM T [facility] Comment:eGFR calculated with 2020 CKD-EPI equation. Vegetarian diet, extremely high or low muscle mass, and may affect results. Cystatin C with Glomerular Filtration Rate is a suitable alternative for these patients. ANION GAP 13 9 - 20 mmol/L 10/14/2024 6:30 AM T [facility] Blood Venipuncture / Unknown 10/14/2024 5:28 AM CDT 10/14/2024 5:48 AM CDT Moiz Perry MD CHEMISTRY ORDERABLES Final R esult [facility] CLIA # [id number] [address] [place] [address] * (ABNORMAL) BASIC METABOLIC PANEL (10/13/2024 6:29 PM CDT) Only the most recent of5 resultswithin the time period is included. SODIUM 134(L) 136 - 145 mmol/L 10/13/2024 7:26 PM [facility] POTASSIUM 4.3 3.5 - 5.1 mmol/L 10/13/2024 7:26 PM [facility] CHLORIDE 95(L) 98 - 107 mmol/L 10/13/2024 7:26 PM [facility] CO2 25 22 - 29 mmol/L 10/13/2024 7:26 PM [facility] CALCIUM 8.5(L) 8.6 - 10.0 mg/dL 10/13/2024 7:26 PM [facility] BUN 61(H) 6 - 20 mg/dL 10/13/2024 7:26 PM CDT [facility] CREATININE 4.23(H) 0.67 - 1.17 mg/dL 10/13/2024 7:26 PM CDT [facility] GLUCOSE 214(H) 74 - 99 mg/dL 10/13/2024 7:26 PM CDT [facility] GFR 16(L) >=60 mL/min/1. 73 sq meter 10/13/2024 7:26 PM CDT [facility] Comment:eGFR calculated with 2020 CKD-EPI equation. Vegetarian diet, extremely high or low muscle mass, and may affect results. Cystatin C with Glomerular Filtration Rate is a suitable alternative for these patients. ANION GAP 14 9 - 20 mmol/L 10/13/2024 7:26 PM CDT [facility] Blood Venipuncture / Unknown 10/13/2024 6:29 PM CDT 10/13/2024 6:50 PM CDT Caitlyn Doty ECCLESIASTICAL WORKER CHEMISTRY ORDERABLES Final Result [id number] [address] [place] [address] * IR VENOUS ACCESS (10/13/2024 9:02 AM [...] created for the patient record. A 5 Ghanaian dilator and J-wire were placed. Lidocaine with [...] dialysis. Diagnosis: NSTEMI (non-ST elevated myocardial infarction) ([facility]); Hypervolemia, unspecified hypervolemia type. Comparisons: None [...] created for the patient record. A 5 Ghanaian dilator and J-wire were placed. Lidocaine with [...] The catheter is ready for immediate use. us Efren Perez MD IR ORDERABLES Final Result [...] - 14.9 Seconds 10/12/2024 10:47 AM CDT [facility] INR 1.3(H) 0.8 - 1.2 10/12/2024 10:47 AM CDT [facility] Blood Venipuncture / Unknown 10/12/2024 10:24 AM CDT 10/12/2024 10:33 AM CDT Narrative [facility] - 10/12/2024 10:47 AM CDT Expected Values for INR: DVT/PE Goal INR 2.5; range 2.0 - 3.0 Valve Replacement Tissue Goal INR 2.5; range 2.0 - 3.0 Valve Replacement Mechanical Goal INR 3.0; range 2.5 - 3.5 POST-TN Goal INR 2.5; range 2.0 - 3.0 or Goal INR 3.0; range 2.5 - 3.5 Atrial Fibrillation Goal INR 2.5; range 2.0 - 3.0 Ischemic Stroke Goal INR 2.5; range 2.0 - 3.0 Efren Perez MD HEMATOLOGY ORDERABLES Final Result Performing Organization Address [facility] de Phone Number [facility] CLIA # [id number] [address] [address] [place] [address] * ACUTE HEPATITIS PANEL (10/12/2024 10:23 AM CDT) HEPATITIS B SURFACE AG NON-REACT LITO Non-react lito 10/12/2024 12:34 PM CDT [facility] Comment:A non-reactive test result does not exclude the possibility of exposure to or infection with hepatitis B. HEPATITIS B CORE IGM NON-REACT LITO Non-react lito 10/12/2024 12:34 PM CDT [facility] Comment:IgM antibodies to HB c were not detected; does not exclude the possibility of exposure to HBV. HEPATITIS A IGM Non-react lito Non-react lito 10/12/2024 12:34 PM CDT [facility] Comment:A negative test resu lt does not exclude the possibility of exposure to Hepatitis A virus. HEPATITIS C AB NON-REACT LITO Non-react lito 10/12/2024 12:34 PM CDT [facility] Comment:Antibodies to HCV we re not detected, does not exclude the possibility of exposure to HCV. Blood Venipuncture / Unknown 10/12/2024 10:23 AM CDT 10/12/2024 10:38 AM CDT Efren Perez MD CHEMISTRY ORDERABLES Final R esult Performing Organization Address [facility] Co de Phone Number [facility] CLIA # [id number] [address] [address] * IMMUNOFIXATION (10/12/2024 6:03 AM CDT) [facility] IMMUNOFIXATION INTERP See Interpretation Below 10/12/2024 3:11 PM CDT [facility] Comment: Normal polyclonal immunoglobulins. Interpreted by: Tiffanie Laura MD Blood Venipuncture / Unknown 10/12/2024 6:03 AM CDT 10/12/2024 6:24 AM CDT us Efren Perez MD CHEMISTRY ORDERABLES Final R esult [facility] CLIA # [id number] [address] [place] [address] * (ABNORMAL) PROTEIN ELECTROPHORESIS W/REFLEX,SERUM (10/12/2024 6:03 AM CDT) [facility] TOTAL PROTEIN 6.9 6.4 - 8.3 g/dL 10/12/2024 3:10 PM CDT [facility] ALBUMIN SPE 2.83(L) 3.50 - 5.20 g/dL 10/12/2024 3:10 PM CDT [facility] ALPHA 1 GLOBULIN SPE 0.51(H) 0.21 - 0.45 g/dL 10/12/2024 3:10 PM CDT [facility] ALPHA 2 GLOBULIN SPE 0.95 0.50 - 1.01 g/dL 10/12/2024 3:10 PM CDT [facility] BETA GLOBULIN 0.99 0.60 - 1.06 g/dL 10/12/2024 3:10 PM CDT [facility] GAMMA GLOBULIN 1.58(H) 0.60 - 1.33 g/dL 10/12/2024 3:10 PM CDT [facility] SPE INTERP See Interpretation Below 10/12/2024 3:10 PM CDT [facility] Comment: Immunofixation was reflexed in order to separate the beta fractions. No monoclonal protein band identified. Interpreted by: Tiffanie Laura MD Blood Venipuncture / Unknown 10/12/2024 6:03 AM CDT 10/12/2024 6:24 AM CDT Narrative [facility] - 10/12/2024 3:10 PM CDT Immunofixation ordered at [facility] per policy per pathologist. us Efren Perez MD CHEMISTRY ORDERABLES Final R esult Performing Organization Address [facility] Co de Phone Number [facility] CLIA # [id number] [address] [facility] [place] [address] * (ABNORMAL) BRAIN NATRIURETIC PEPTIDE, BNP OR PROBNP (10/12/2024 6:03 AM CDT) Only the most recent of2 resultswithin the time period is included. PROBNP, N TERMINAL 19,441(H) 0 - 125 pg/mL 10/12/2024 7:12 AM CDT [facility] Comment: INTERPRETIVE COMMENT based on diagnosis: Diagnostic [...] ORDERABLES Final R esult Performing Organization Address City/[facility]/ZIP Co de Phone Number [facility] CLIA # [id number] [address] [address] * EXTRA TUBE (URINE MELENDEZ) (10/08/2024 7:39 PM CDT) Urine URINE SPECIMEN OBTAINED BY CLEAN CATCH PROCEDURE / Unknown Collection / Unknown 10/08/2024 7:39 PM CDT 10/08/2024 7:39 PM CDT Caitlyn Doty [facility] URINE ORDERABLES Final Resu lt Performing Organization Address [facility] de Phone Number [facility] CLIA # [id number] [address] [place] [address] * SODIUM, RANDOM URINE (10/08/2024 7:39 PM CDT) SODIUM, URINE 117 mmol/L 10/08/2024 8:32 PM CDT [facility] Comment:Reference range not established Urine URINE SPECIMEN OBTAINED BY CLEAN CATCH PROCEDURE / Unknown Collection / Unknown 10/08/2024 7:39 PM CDT 10/08/2024 7:39 PM CDT Caitlyn Doty [facility] URINE ORDERABLES Final Resu lt Performing Organization Address [facility] Phone Number [facility] CLIA # [id number] [address] [place] [address] * (ABNORMAL) PROTEIN/CREATININE RATIO, URINE (10/08/2024 7:39 PM CDT) PROTEIN CONCENTRATION 37(H) 0 - 20 mg/dL 10/08/2024 8:32 PM CDT [facility] CREATININE, URINE 22.6(L) 40.0 - 278.0 mg/dL 10/08/2024 8:32 PM CDT [facility] Comment:Reference Range vari es with fluid intake and diet. PROTEIN/CREAT RATIO, URINE 1.64(H) 0.00 - 0.19 mg/mg Creatinine 10/08/2024 8:32 PM T [facility] Urine URINE SPECIMEN OBTAINED BY CLEAN CATCH PROCEDURE / Unknown Collection / Unknown 10/08/2024 7:39 PM CDT 10/08/2024 7:39 PM CDT us Caitlyn Doty ECCLESIASTICAL WORKER URINE ORDERABLES Final Resu lt [facility] CLIA # [id number] [address] [address] [place] [address] * (ABNORMAL) URINALYSIS WITH REFLEX MICROSCOPIC (10/08/2024 7:39 PM CDT) COLOR UA Colorless(A ) Pale to Dark Yellow 10/08/2024 7:42 PM [facility] CLARITY UA Clear Clear 10/08/2024 7:42 PM T [facility] SPECIFIC GRAVITY UA 1.010 1.003 - 1.035 10/08/2024 7:42 PM T [facility] PH UA 6.5 5.0 - 8.0 10/08/2024 7:42 PM [facility] LEUKOCYTE ESTERASE UA Negative Negative 10/08/2024 7:42 PM [facility] NITRITE UA Negative Negative 10/08/2024 7:42 PM [facility] PROTEIN UA Trace(A) Negative 10/08/2024 7:42 PM [facility] GLUCOSE UA 1+(A) Negative 10/08/2024 7:42 PM T [facility] KETONES UA Negative Negative 10/08/2024 7:42 PM T [facility] UROBILINOGEN UA <2.0 <2.0 mg/dL 7:42 PM [facility] BILIRUBIN UA Negative Negative 10/08/2024 7:42 PM [facility] BLOOD UA Negative Negative 10/08/2024 7:42 PM CDT [facility] Urine URINE SPECIMEN OBTAINED BY CLEAN CATCH PROCEDURE / Unknown Collection / Unknown 10/08/2024 7:39 PM CDT 10/08/2024 7:39 PM CDT Caitlyn Doty ECCLESIASTICAL WORKER URINE ORDERABLES Final Resu lt Performing Organization Address City/[facility]/ZIP Co de Phone Number [facility] CLIA # [id number] [address] [address] [place], [place] [id number] * UNFRACTIONATED HEPARIN MONITORING (10/08/2024 1:59 PM CDT) Only the most recent of3 resultswithin the time period is included. ANTI-XA UNFRAC HEP 0.21 See Interpretation IU/mL 10/08/2024 2:26 PM CDT [facility] Blood Venipuncture / Unknown 10/08/2024 1:59 PM CDT 10/08/2024 2:05 PM CDT Narrative [facility] - 10/08/2024 2:26 PM CDT Therapeutic Range: PT/DVT Heparin Protocol 0.3 - 0.7 IU/ml Cardiac Heparin Protocol 0.3 - 0.6 IU/ml The reference range for this test is specific to the anticoagulant and is not appropriate for monitoring patients on a DOAC protocol. us Moiz Perry MD HEMATOLOGY ORDERABLES Final Result Performing Organization Address City/[facility]/ZIP Co de Phone Number [facility] CLIA # [id number] [address] [id number] * ECHO COMPLETE - CONTRAST AND STRAIN IF INDICATED (10/08/2024 10:09 AM CDT) EJECTION FRACTION 55 INTERFACE SYSTEM 10/08/2024 9:24 AM CDT [employer] INTERFACE SYSTEM - 10/08/2024 10:41 AM CDT [facility] Echocardiography Laboratory [address] [place] [address] Transthoracic Echocardiography Patient: Skyler Hernadez Study ID: ECHO COMPLETE Gender: Mindy : 1970 Age: 54 Room: [facility] Study Date: 10/08/2024 Pt Status: Inpatient Study Time: 09:24:22 AM CSN #: [id number] Ordering:Nupur Woodward Felled Seam Operator: Chad Valentino [facility] Indications and History: Hypotension or Hemodynamic Instability; [...] (H) zackery values outside specified reference range. [facility] are accredited with the Intersocietal Accreditation Commission - Echocardiography. Prepared and Electronically Authenticated Familia Reed MD Confirmed 10/08/2024 10:41 Procedure Note Familia Reed MD - 10/08/2024 [facility] Ech[facility] [address] [place] [address] Transthoracic Echocardiography Patient: Skyler Hernadez Study ID: ECHOCOMPLETE Gender: M : 1970 Age: 54 Room: [facility] Study Date: 10/08/2024 Pt Status: Inpatient Study Time: 09:24:22 AM [facility] #: [id number] Ordering:Nupur Woodward Felled Seam Operator: Chad Valentino [facility] Indications and History: Hypotension or Hemodynamic Instability;Hypotension [...] (H) zackery values outside specified reference range. [facility] are accredited with theIntersocietal Accreditation Commission - Echocardiography. Prepared and Electronically Authenticated Familia Reed MD Confirmed 10/08/2024 10:41 us Nupur Woodward [facility] US ORDERABLES Final Resu lt INTERFACE SYSTEM Refer to clinic/hospital department * (ABNORMAL) TROPONIN 6 HR, 5TH GEN (10/08/2024 5:59 AM CDT) TROPONIN T, 6 HR 5TH GEN 351(HH) <=15 ng/L 10/08/2024 6:56 AM CDT [facility] DEL[place] 6HR TROPONIN T % -17 See Interp. % 10/08/2024 6:56 AM CDT [facility] Blood Venipuncture / Unknown 10/08/2024 5:59 AM CDT 10/08/2024 6:09 AM CDT [facility] [employer] [facility] - 10/08/2024 6:56 AM CDT Troponin elevated. Delay in collection of timed specimen beyond recommended collection interval. Results must be interpreted in clinical context. Delta not changing. Jonathon Isaac APRN CHEMISTRY ORDERABLES Final R esult Performing Organization Address City/[facility]/ZIP Co de Phone Number [facility] CLIA # [id number] [address] [address] [place], [place] [address] * (ABNORMAL) TROPONIN 2 HR, 5TH GEN (10/08/2024 3:41 AM CDT) TROPONIN T, 2 HR 5TH GEN 363(HH) <=15 ng/L 10/08/2024 4:18 AM CDT [facility] [employer] [facility] DEL[place] 2HR TROPONIN T % -14 See Interp. % 10/08/2024 4:18 AM CDT [facility] Blood Venipuncture / Unknown 10/08/2024 3:41 AM CDT 10/08/2024 3:47 AM CDT [facility] [employer] [facility] - 10/08/2024 4:18 AM CDT Troponin elevated. Delay in collection of timed specimen beyond recommended collection interval. Results must be interpreted in clinical context. Delta not changing. Jonathon Isaac APRN CHEMISTRY ORDERABLES Final R esult Performing Organization Address [facility]/ZIP Co de Phone Number [facility] CLIA # [id number] [address] [address] [place], [place] [address] * (ABNORMAL) IRON, TIBC, AND PERCENT SATURATION (10/08/2024 3:41 AM CDT) IRON 23(L) 59 - 158 ug/dL 10/08/2024 5:07 AM CDT [facility] TIBC 190(L) 250 - 450 ug/dL 10/08/2024 5:07 AM CDT [facility] IRON % SATURATION 12(L) 15 - 60 % 10/08/2024 5:07 AM CDT [facility] Blood Venipuncture / Unknown 10/08/2024 3:41 AM CDT 10/08/2024 3:47 AM CDT Hernan Aleman MD CHEMISTRY ORDERABLES Fi nal Result Performing Organization Address [facility] Co de Phone Number [facility] CLIA # [id number] [address] [address] [place] [address] * FERRITIN (10/08/2024 3:41 AM CDT) FERRITIN 189.7 30.0 - 400.0 ng/mL 10/08/2024 5:03 AM CDT [facility] Blood Venipuncture / Unknown 10/08/2024 3:41 AM CDT 10/08/2024 3:47 AM CDT Hernan Aleman MD CHEMISTRY ORDERABLES Fi nal Result Performing Organization Address [facility] Co de Phone Number [facility] CLIA # [id number] [address] [address] * PTT (10/08/2024 1:44 AM CDT) PTT 33.1 24.8 - 37.2 seconds 10/08/2024 3:05 AM T [facility] Blood Venipuncture / Unknown 10/08/2024 1:44 AM CDT 10/08/2024 1:50 AM CDT Narrative [facility] - 10/08/2024 3:05 AM CDT Therapeutic Range: Hi-level PE/DVT heparin protocol 80.1 - 95.0 sec Lo-level PE/DVT heparin protocol 70.1 - 85.0 sec Cardiac Heparin Protocol 70.1 - 100.0 sec us Jaren Recinos MD HEMATOLOGY ORDERABLES Final Result Performing Organization Address [facility] de Phone Number [facility] CLIA # [id number] [address] [place] [address] * (ABNORMAL) TROPONIN BASELINE, 5TH GEN (10/07/2024 11:48 PM CDT) TROPONIN T, BASELINE 5TH GEN 423(HH) <=15 ng/L 10/08/2024 12:40 AM CDT [facility] Blood Venipuncture / Unknown 10/07/2024 11:48 PM CDT 10/07/2024 11:51 PM CDT Narrative [facility] - 10/08/2024 12:40 AM CDT Troponin elevated. Jonathon Isaac APRN CHEMISTRY ORDERABLES Final R esult Performing Organization Address [facility] Co de Phone Number [id number] [address] [place] [address] * (ABNORMAL) HEPATIC FUNCTION PANEL (10/07/2024 11:48 PM CDT) TOTAL PROTEIN 7.9 6.4 - 8.3 g/dL 10/08/2024 12:27 AM CDT [facility] ALBUMIN 3.5 3.5 - 5.2 g/dL 10/08/2024 12:27 AM CDT [facility] BILIRUBIN TOTAL 0.4 0.0 - 1.0 mg/dL 10/08/2024 12:27 AM CDT [facility] BILIRUBIN DIRECT 0.2 0.0 - 0.3 mg/dL 10/08/2024 12:27 AM CDT [facility] ALKALINE PHOSPHATASE 204(H) 40 - 129 U/L 10/08/2024 12:27 AM CDT [facility] AST 23 10 - 50 U/L 10/08/2024 12:27 AM CDT [facility] ALT 8 <=50 U/L 10/08/2024 12:27 AM CDT [facility] Blood Venipuncture / Unknown 10/07/2024 11:48 PM CDT 10/07/2024 11:51 PM CDT us Jaren Recinos MD CHEMISTRY ORDERABLES Final R esult [facility] CLIA # [id number] [address] [place] [address] * XR CHEST PA OR AP 1 [...] effusion. No pneumothorax. Scoliosis and spondylosis. Postcholecystectomy. 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1970 Requested By: Order Number: [id number] Reading MD: Lamine Plunkett Measurements Intervals [place] Rate: 90 P: 45 DC: 126 QRS: 78 QRSD: 106 T: -18 QT: 398 QTc: 486 Interpretive Statements Normal sinus rhythm T wave abnormality, consider inferior ischemia Abnormal ECG Electronically Signed On 10-08-2024 8:07:47 CDT by Lamine Plunkett Procedure Note Lamine Pulnkett MD - 10/08/[address] [address] Test Date: 2024-10-07 Pat Name: SKYLER HERNADEZ Department: 11 Room: 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 MEDICAID RX INFOCROSSING Medicaid Advance Directives For more information, please contact: [phone] * Full Code (Latest Code Status on File) Date Activated Date Inactivated Comments 10/08/2024 1:49 AM 10/17/2024 6:56 PM
--- OUTSIDE RECORDS SUMMARY | 2024-12-15 01:46 | XMS_ITS | Encounter Summary ---
Author Organization [facility] Address [address] [place] [address] Phone Care Team Providers Care Fiber Optic Splicer Name Role Phone Corinne Nicholson Primary Care Provider [phone] Encounter Details Date Type Department Care Team (Late st Contact Info) Description 12/09/2024 Documentation Only [facility] [address] [place] [address] Suzie Cee [address] [place] [address] Social History Tobacco Use Types [...] as of this encounter Plan of Treatment Not on file documented as of this encounter Visit Diagnoses Not on filedocumented in this encounter Care Teams Fiber Optic Splicer Relationship Specialty Start Date End Date Corinne Nicholson FNP [address] [place] [id number] PCP - General Nutrition 09/23/24 documented as of this encounter
--- OUTSIDE RECORDS SUMMARY | 2024-12-15 01:46 | XMS_ITS | Encounter Summary ---
Author Organization [facility] Address [address] [place] [address] Phone Care Team Providers Care Duct Maker Name Role Phone LynCorinneFeliciano [facility] Primary Care Provider [phone] Encounter Details Date Type Department Care Team (Late st Contact Info) Description 12/07/2024 Orders Only [facility] [address] [place] [address] Efren Perez MD [address] [place] [address] Social History Tobacco Use Types [...] on file documented as of this encounter Procedures Procedure Name Priority Date/Time Associated Diagnosis Comments IMMUNO CHEMISTRY Routine 12/07/2024 HEMATOLOGY Routine 12/07/2024 CHEMISTRY Routine 12/07/2024 documented in this encounter Results * (ABNORMAL) Spectrae Chemistry (12/07/2024) BUN 65(H) 6 - 19 mg/dL Spectra [...] Saturation (TSat) 16(L) 20 - 55 % [facility] 12/07/2024 12/08/2024 12: 47 PM CDT Narrative [facility] - 12/08/2024 Unless otherwise specified, test(s) performed at: [facility] [address] COMMERCIAL ARTIST: Augustin Finney M.D. For any questions, please call customer service at FREQUENCY:MONTHLY Resulting Agency Comment Specimen source: Serum us Efren Perez MD LAB BLOOD ORDERABLES Final Result [facility] See order comments or contact performing lab Unknown, [place] * IMMUNO CHEMISTRY (12/07/2024) Hep B Surface Ag Negative Negative [facility] 12/07/2024 12/08/2024 12: 47 PM CDT Narrative [facility] - 12/08/2024 Unless otherwise specified, test(s) performed at: [facility], [address] [place] [address] COMMERCIAL ARTIST: Augustin Finney M.D. For any questions, please call customer service at FREQUENCY:MONTHLY Resulting Agency Comment Specimen source: Serum Efren Perez MD LAB BLOOD ORDERABLES Final Result [facility] See order comments or contact performing lab Unknown, [place] * (ABNORMAL) HEMATOLOGY (12/07/2024) Neutrophils 61.6 40.0 - 75.0 % Spectra [...] 12/08/2024 Unless otherwise specified, test(s) performed at: [facility], [address] [place] [address] COMMERCIAL ARTIST: Augustin Finney M.D. For any questions, please call customer service at FREQUENCY:MONTHLY Resulting Agency Comment Specimen source: Blood Efren Perez MD LAB BLOOD ORDERABLES Final Result [facility] See order comments or contact performing lab Unknown, [place] documented in this encounter Visit Diagnoses Not on filedocumented in this encounter Care Teams Duct Maker Relationship Specialty Start Date End Date Corinne Nicholson FNP [address] [place] [address] PCP - General Nutrition 09/23/24 documented as of this encounter
--- OUTSIDE RECORDS SUMMARY | 2024-12-15 01:46 | XMS_ITS | Encounter Summary ---
Author Organization [facility], [facility] Address [address] [place] [address] Phone Care Team Providers Care Spindle Setter Name Role Phone LynCorinne Janine SALVAGE SUPERVISOR Primary Care Provider [phone] Encounter Details Date Type Department Care Team (Late st Contact Info) Description 12/11/2024 Treatment [facility] [address] [place] [address] Radha Wayne METAL MINER BLASTING [address] [facility] [address] [place] [address] Social History Tobacco Use Types [...] as of this encounter Miscellaneous Notes * Dialysis Note - Radha Wayne NP - 12/11/2024 12:00 AM CDT Patient: Guido Whalen, 1970, 54y, M Dialysis Location: [facility] Drill Operator Helper: Efren Perez Service Date: 12/11/2024 Service Provider: Radha Wayne NP I met face to face with the patient today. OVERVIEW The patient presented with REBECCA on dialysis. 10/21/2024 Comments: Hospitalized 2 weeks ago with HF and NSTEMI. Underwent PCI. He is doing ok. Last week, no erythema or redness to legs. Starting to get a little red again. Challenging dry weight some. Medications and labs reviewed. HOME MEDICATIONS Home Medications: sennosides 8.6 mg, by mouth, [...] mg once a day RenaPlex (vit b evwxxkl-[id number] ac-zinc) 800 mcg- 12.5 mg, by mouth, [...] hours as needed Allergies: No Known Allergies LAST HOSPITALIZATION Discharge Diagnosis: I50.20 Unspecified systolic (congestive) heart failure I21.4 Non-ST elevation (NSTEMI) myocardial infarction Admission Date 11/24/24 Discharge Date 12/02/24 DIALYSIS PRESCRIPTION IHD 3x Week Start date: 12/09/24 Dialyzer: 180NRe Optiflux BFR: 450 DFR: Autoflow 2 Potassium: 2.0 Sodium: 140 EDW: 94.3 Duration: 4:00 Calcium: 2.5 Bicarb: 35 Rx updated on: 12/08/2024 TREATMENT ASSESSMENT Blood pressure controlled. No changes indicated. BP Stand Pre 12/09/2024: 155/75 12/04/2024: 112/59 BP Sit Pre 12/09/2024: 156/79 12/07/2024: 135/75 12/04/2024: 127/65 BP Stand Post 12/09/2024: 122/62 12/07/2024: 118/60 12/04/2024: 128/72 BP Sit Post 12/09/2024: 105/57 12/07/2024: 130/67 12/04/2024: 135/72 Tx Duration 12/09/2024: 4:00 12/07/2024: 3:57 12/04/2024: 4:03 Missed Treatments 0 - last 30 days 0 - last 60 days FLUID ASSESSMENT Comments: 24 hour urine this weekend. Fluid status acceptable. Interdialytic weight gain acceptable. No changes indicated. EDW (kg) 12/09/2024: 94.3 12/07/2024: 95.1 12/04/2024: 95.1 Weight Pre (kg) 12/09/2024: 100.1 12/07/2024: 98.9 12/04/2024: 100.3 Weight Post (kg) 12/09/2024: 94.4 12/07/2024: 94.3 12/04/2024: 96.6 PWV (kg) 12/09/2024: 0.1 12/07/2024: -0.8 12/04/2024: 1.5 UF Rate (mL/kg/hr) 12/09/2024: 15.1 12/07/2024: 12.3 12/04/2024: 9.5 ADEQUACY ASSESSMENT Adequacy target met. Prescription compliance acceptable. No changes indicated. Creatinine 12/07/2024: 3.75 12/04/2024: 3.84 11/23/2024: 4.48 Urine Cr Clearance 11/23/2024: 7.9 11/16/2024: 3.1 11/09/2024: 7.7 ACCESS ASSESSMENT Access Type: CVCatheter Access SubType: Tunneled Access Status: Active (In Use) - 10/16/2024 Access Location: Chest Placed: 10/13/2024 Vascular access reviewed. Current access is functioning well. ANEMIA ASSESSMENT HGB below goal. Treatment protocol ordered. HGB, TSAT 12/07/2024: 9.9, 16.0 12/04/2024: 9.4, - 11/23/2024: 9.7, - Ferritin 10/19/2024: 531.0 Mircera, IVP (mcg) 12/04/2024: 225 11/20/2024: 225 11/06/2024: 225 Iron Sucrose (Venofer) (mg) 11/23/2024: 100 11/20/2024: 100 11/16/2024: 100 BMM ASSESSMENT PTH, Intact 10/19/2024: 89.0 Calcium, Phosphorus 12/07/2024: 8.2, 6.0 11/02/2024: 8.2, 4.8 10/19/2024: 8.4, 4.1 NUTRITION ASSESSMENT Potassium controlled. Albumin below goal. Referred to dietitian. Potassium, Albumin 12/07/2024: 5.4, 3.1 12/04/2024: 4.8, - 11/23/2024: 4.6, - eNPCR 11/09/2024: 0.8 11/02/2024: 0.53 PHYSICAL EXAM Exam Performed. Vital Signs Reviewed. DIAGNOSIS Chief Complaint: N17.9 Acute kidney failure, unspecified Comments: REBECCA on CKD IV with CRS and DN. Continues to require thrice weekly dialysis. Vol status better. Patient is stable. Patient discussed with nursing. Patient data updated 12/11/2024 at 1:36 PM Signed By: Radha Wayne NP on 12/11/2024 1:38:18 PM documented in this encounter Plan of Treatment Not on file documented as of this encounter Visit Diagnoses Not on filedocumented in this encounter Care Teams Spindle Setter Relationship Specialty Start Date End Date Corinne Nicholson FNP [address] [place] [address] PCP - General Nutrition 09/23/24 documented as of this encounter
--- NOTE | 2024-12-15 01:52 | XRR_ITS ---
PROCEDURE INFORMATION: Exam: XR Chest Exam date and time: 12/15/2024 1:56 AM Age: 54 years old Clinical indication: Pain; Chest pressure; Prior surgery; Surgery date: <1 month; Surgery type: Coronary stents 2 weeks ago, dialysis cath; Additional info: Cp TECHNIQUE: Imaging protocol: Radiologic exam of the chest. Views: 1 view. COMPARISON: CT angio chest [id number] 11/30/2024 9:19 PM FINDINGS: Tubes, catheters and devices: There is a right-sided Perma catheter with tip in the region of the right atrium. Lungs: Patchy interstitial opacities present in the left lower lung field. No consolidation. Pleural spaces: Unremarkable. No pleural effusion. No pneumothorax. Heart/Mediastinum: The heart is stable in size. Bones/joints: Unremarkable. XR/XR chest 1V portable [id number] IMPRESSION: Patchy interstitial opacities in the left lower lung field. This finding may be related to asymmetric edema or pneumonia.
[2024-12-15 02:05] LABS: Hematocrit 27.2 % (37-53); Hemoglobin 8.30 g/dL (11.27-16.99); Mean Corpuscular HGB Conc 30.5 g/dL (30-55); Mean Corpuscular Hemoglobin 28.3 pg (27-33); Mean Corpuscular Volume 92.8 fl (82-101); Nucleated Red Blood Cells % 0 %; Platelet Count 110 10^3/cmm (157-399); Red Blood Count 2.93 10^6/uL (3.85-5.65); White Blood Count 3.17 10^3/uL (3.29-11.43)
[2024-12-15 02:30] LABS: Alanine Aminotransferase 17 U/L (0-41); Albumin Level 2.7 g/dL (3.5-5.2); Alkaline Phosphatase 171 U/L (40-130); Anion Gap 12.3 (5-19); Aspartate Amino Transferase 23 U/L (0-40); Blood Urea Nitrogen 15 mg/dL (6-20); Calcium 6.6 mg/dL (8.5-10.5); Carbon Dioxide 25 mmol/L (22-29); Chloride 107 mmol/L (98-107); Creatinine Clr Calc Pharmacy 51.3111; Globulin 2.6 g/dL (1.3-4.6); Glucose 236 mg/dL (65-115); Lipase 160 U/L (13-60); NT Pro B Type Natriuretic Pept 5396 pg/mL (0-125); Osmolality Calculated 300 mOsm/kg (285-295); Potassium 3.3 mmol/L (3.5-5.1); Sodium 141 mmol/L (136-145); Total Protein 5.3 g/dL (6.6-8.7)
[2024-12-15 02:33] LABS: Troponin(5th) Baseline 418 ng/L (0-15)
--- NOTE | 2024-12-15 02:57 | ED_ITS ---
HPI - Chest Pain 2 General: Chief Complaint: ER Hold Stated Complaint: CP Time Seen by Provider: 12/15/24 02:05 History of Present Illness: 54-year-old male with a history of coron alan disease. He had stents placed on 2 separate occasions, once the first week in November, went to the second. He developed chest pain last night that is a constant ache in his left chest, shoulder, with numbness in his forearm. He is not overly short of breath. He had dialysis yesterday. His abdominal pain he was seen for last week has seemed to improve he says. Related Data Home Medications ?Medication ?Instructions ?Recorded ?Confirmed albuterol sulfate 90 mcg/actuation 2 puff inhalation Q 4H PRN 08/05/24 12/08/24 aerosol inhaler Shortness Of Breath ferrous sulfate 325 mg (65 mg 325 mg PO .QOD 09/16/24 12/08/24 iron) tablet (FeroSul) hydroxyzine HCl 25 mg tablet 25 mg PO BEDTIME PRN Inso mnia 11/24/24 12/08/24 loperamide 2 mg capsule See Rx Instructions .Route 0 11/24/24 12/08/24 .COMPLEX PRN Diarrhea potassium chloride 10 mEq 10 meq PO DAILY 11/24/24 tablet,extended release vitamin B complex with vit C-folic 1 tab PO DAILY 06/2012/08/24 acid 800 mcg-zinc 12.5 mg tablet (RenaPlex) benzonatate 100 mg capsule 100 mg PO BID PRN 12/08/24 12/08/24 escitalopram oxalate 5 mg tablet 10 mg PO DAILY 12/08/24 vitamin B complex with vit C-folic 1 tab PO DAILY 11/2412/08/24 acid 800 mcg-zinc 12.5 mg tablet (RenaPlex) Previous Rx's ?Medication ?Instructions ?Recorded cholecalciferol (vitamin D3) 1,250 50,000 mcg (40 x 1, 250 mcg (50,000 08/27/24 mcg (50,000 unit) capsule unit)) PO Q7D #4 caps pantoprazole 40 mg tablet,delayed 40 mg PO BID #180 ta bs 09/08/24 release (Protonix) doxazosin 8 mg tablet 8 mg PO DAILY #30 tabs 10/01 gabapentin 100 mg capsule 100 mg PO TID #90 caps 11/10 amlodipine 5 mg tablet 5 mg PO DAILY 30 days #30 ta bs 12/02/24 aspirin 81 mg tablet,delayed 81 mg PO DAILY 30 days #3 0 tabs 12/02/24 release atorvastatin 40 mg tablet 40 mg PO BEDTIME 30 days #30 tabs 12/02/24 bumetanide 2 mg tablet 1 mg (1/2 x 2 mg) PO DAILY 3 0 days 12/02/24 #15 tabs carvedilol 25 mg tablet 25 mg PO BID 30 days #60 tab s 12/02/24 clopidogrel 75 mg tablet 75 mg PO DAILY 30 days #30 t abs 12/02/24 glucagon HCl 1 mg solution for 1 mg IM Q20M PRN hypogl ycemia #1 ea 12/02/24 injection (Glucagon (HCl) Emergency Kit) insulin glargine 100 unit/mL (3 10 unit (0.1 mL) SUBCU T BID 30 12/02/24 mL) subcutaneous pen ( #6 mL Solostar U-100 Insulin) insulin lispro 100 unit/mL See Rx Instructions .Route 12/02/24 subcutaneous pen .COMPLEX 30 days #15 mL isosorbide mononitrate 30 mg 30 mg PO DAILY 30 days #3 tabs 12/02/24 tablet,extended release 24 hr losartan 50 mg tablet 50 mg PO DAILY 30 days #30 t abs 12/02/24 nitroglycerin 0.4 mg sublingual 0.4 mg sublingual Q5M PRN Chest 12/02/24 tablet Pain 30 days #30 tabs polyethylene glycol 3350 17 gram 17 g PO DAILY constip ation 30 days 12/02/24 oral powder packet #30 ea sennosides 8.6 mg tablet (Laxative 8.6 mg PO BID 30 da ys #60 tabs 12/02/24 (sennosides)) hydrocodone 5 mg-acetaminophen 325 1 tab PO Q8H PRN pa in #7 tabs 12/06/24 mg tablet polyethylene glycol 3350 17 17 g PO DAILY #238 grams 0 12/06/24 gram/dose oral powder (Gavilax) cephalexin 500 mg capsule 500 mg PO TID #21 caps 12/08 Allergies Allergy/AdvReac Type Severity Reaction Status Date / Time ketorolac Allergy ADR-Vomitin Verified 12/08/24 14:36 g PFSH ED 2 PFSH: Medical History Hypertension Diabetes CKD (chronic kidney disease) Liver cirrhosis MRSA pneumonia Blastomycosis of central nervous system Anemia Surgical History S/P percutaneous endoscopic gastrostomy (PEG) tube placement Tracheostomy status Past medical history positive for prolonged hospitalization secondary to angioedema requiring intubation, followed by tracheostomy after prolonged intubation, PEG tube placement after prolonged n.p.o. 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 07/17 MRI lumbar spine chronic degenerative changes, he was given prolonged antibiotics for possible osteomyelitis 08/01: Follow-up MRI no evidence of osteomyelitis Antimicrobial therapy IV vancomycin: Did not tolerate He was given linezolid, ceftaroline meropenem, micafungin, daptomycin Prolonged IV meropenem 07/23 till 08/01 Itraconazole prolonged therapy 07/22-08/01 PICC line removed And sent to spirometer [facility] provided Patient was discharged on room air EGD: 07/28: Gastritis: Colonoscopy 07/30: Nonbleeding internal hemorrhoids: 3 to 5 mm small polyps removed large 20 mm polyp removed as well: Patient was asked to follow-up for colonoscopy within 3 years Diarrhea: C. difficile panel negative: Patient was given Imodium on as-needed basis Family History Father Heart disease Social History Smoking and tobacco/nicotine status: former use of tobacco/nicotine Alcohol intake: former Household members: family Housing: House Physical Exam 2 Const: COMMON NORMALS: no acute distress and alert GENERAL APPEARANCE: c ooperative; not ill appearing and not frail appearing ORIENTATION/CONSCIOUSNESS: Yes awake, Yes oriented to person, Yes oriented to place and Yes oriented to time HENMT: COMMON NORMALS: normocephalic, atraumatic, external ears normal and Normal external nose present HEAD & SCALP: normocephalic and atraumatic F MAURI & SINUS: normal facial exam and face symmetric NOSE: Normal external nose present EXTERNAL EAR: Yes external ears normal MOUTH: tongue normal T EETH & GINGIVA: no abnormal tooth and associated gingiva THROAT: posterior oropharynx normal; no peritonsillar mass Eye: COMMON NORMALS: Equal, round and reactive pupils present, EOMs intact bilaterally and conjunctivae normal EYELID: eyelids normal CONJUNCTIVA: Y es conjunctivae normal PUPIL: Yes Equal, round and reactive pupils present Neck/C-Spine: COMMON NORMALS: full ROM GENERAL: Yes trachea midline C ERVICAL SPINE: Yes normal cervical lordosis, No Cervical spine tenderness, No step off deformity, No Paracervical muscle tenderness and No Paracervical spasm Chest: COMMONS NORMALS: normal inspection of the chest CHEST: Yes Symmetrical chest wall rise Resp: COMMON NORMALS: normal respiratory effort, No retractions, No use of accessory muscles and clear to auscultation bilaterally EFFORT & INSPECTION: No tachypneic, No respiratory distress, No retractions, No uses accessory muscles and No tracheal deviation AUSCULTATION: clear to auscultation bilaterally Cardio: COMMON NORMALS: regular rate and regular rhythm RATE: regular rate RHYTHM: regular rhythm HEART SOUNDS: no murmurs PERIPHERAL PULSES: r adial pulses present GI: COMMON NORMALS: Normal to inspection, nondistended, normoactive bowel sounds present INSPECTION: No abdominal distension AUSCULTATION: No Hyperactive bowel sounds present and No Hypoactive bowel sounds present P ALPATION: No Tenderness to palpation present (GI), No Guarding due to palpation present (GI) and No Rigid due to palpation PERCUSSION: no dullness to percussion and no tympanic to percussion : COMMON NORMALS: Yes no CVA tenderness BLADDER/KIDNEY EXAM: Yes no CVA tenderness Back/Pelvis: COMMON NORMALS: no CVA tenderness PELVIS: Yes no pain with anterior-posterior compression and Yes no pain with lateral compression Extremity: COMMON NORMALS: no pedal edema Neuro: ROD COMA SCALE: document GCS findings [place] coma scale eye opening: Spontaneous Rod coma scale verbal response: Orientated Rod coma scale motor response: Obey commands Rod coma scale total score: 15 S ENSORIUM/ORIENTATION: Yes alert, Yes oriented to person, Yes oriented to place and Yes oriented to time SENSORY EXAM: Yes extremities (intact) Psych: COMMON NORMALS: speech normal SPEECH: Yes normal speech Skin: COMMON NORMALS: no rashes or lesions noted GENERAL SKIN EXAM: no rashes or lesions noted Course 2 Vital Signs: Vital signs: Vital Signs Temperature 98.7 F 12/15/24 01:43 Pulse Rate 73 12/15/24 01:43 Respiratory Rate 15 12/15/24 01:43 Blood Pressure 141/81 12/15/24 01:43 Pulse Oximetry 98 12/15/24 01:43 Oxygen Delivery Me thod Nasal Cannula 12/15/24 01:43 Oxygen Flow Rate 1.5 12/15/24 01:43 MDM - Chest Pain Medical Decision Making 54-year-old male patient with a history of chest discomfort, coronary disease. He developed chest discomfort not completely relieved by nitroglycerin. He has a history of restenosis of stents, within the last month. His CBC shows pancytopenia. Potassium is 3.3 and will be repleted. Chest x-ray shows interstitial opacities in the left greater than right lung. His creatinine is 1.8 which is an improvement from prior. He had dialysis yesterday. He will be observed. Troponins will be trended. Cardiology is consulted. Hospitalist will see the patient. Lab Data 12/15/24 01:50 12/15/24 01:50 Radiology Impressions Chest X-Ray 12/15/24 01:52 IMPRESSION: Patchy interstitial opacities in the left lower lung field. This finding may be related to asymmetric edema or pneumonia. Laboratory Results WBC 3.17 10^3/uL (3.29-11.43) L 12/15/24 01:50 RBC 2.93 10^6/uL (3.85-5.65) L 12/15/24 01:50 Hgb 8.30 g/dL (11.27-16.99) L 12/15/24 01:50 Hct 27.2 % (37-53) L 12/15/24 01:50 MCV 92.8 fl (82-101) 12/15/24 01:50 MCH 28.3 pg (27-33) 12/15/24 01:50 MCHC 30.5 g/dL (30-55) 12/15/24 01:50 RDW 16.4 % (12.1-15.1) H 12/15/24 01:50 Plt Count 110 10^3/cmm (157-399) L 12/15/24 01:50 MPV 9.8 fL (7.4-10.4) 12/15/24 01:50 Neut % (Auto) 53.3 % 12/15/24 01:50 Lymph % (Auto) 29.7 % 12/15/24 01:50 [place] % (Auto) 11.4 % 12/15/24 01:50 Eos % (Auto) 5.0 % 12/15/24 01:50 Baso % (Auto) 0.6 % 12/15/24 01:50 Neut # (Auto) 1.69 10^3/uL (1.8-7.7) L 12/15/24 01:50 Lymph # (Auto) 0.9 10^3/uL (0.8-4.8) 12/15/24 01:50 [place] # (Auto) 0.4 10^3/uL (0.2-0.9) 12/15/24 01:50 Eos # (Auto) 0.2 10^3/uL (0.0-0.8) 12/15/24 01:50 Baso # (Auto) 0.0 10^3/uL (0.0-0.1) 12/15/24 01:50 Nucleated RBC % (auto) 0 % 12/15/24 01:50 Nucleated RBCs # 0.0 /100WBC 12/15/24 01:50 Sodium 141 mmol/L (136-145) 12/15/24 01:50 Potassium 3.3 mmol/L (3.5-5.1) L 12/15/24 01:50 Chloride 107 mmol/L (98-107) 12/15/24 01:50 Carbon Dioxide 25 mmol/L (22-29) 12/15/24 01:50 Anion Gap 12.3 (5-19) 12/15/24 01:50 BUN 15 mg/dL (6-20) 12/15/24 01:50 Creatinine 1.8 mg/dL (0.7-1.2) H 12/15/24 01:50 GFR Calculation 39.4 mL/min (90-130) L 12/15/24 01:50 Glucose 236 mg/dL (65-115) H 12/15/24 01:50 Calculated Osmolality 300 mOsm/kg (285-295) H 12/15/24 01:50 Calcium 6.6 mg/dL (8.5-10.5) L 12/15/24 01:50 Total Bilirubin 0.4 mg/dL (0.15-1.2) 12/15/24 01:50 AST 23 U/L (0-40) 12/15/24 01:50 ALT 17 U/L (0-41) 12/15/24 01:50 Alkaline Phosphatase 171 U/L (40-130) H 12/15/24 01:50 Troponin T Baseline 418 ng/L (0-15) H* 12/15/24 01:50 NT-Pro-B Natriuret Pep 5396 pg/mL (0-125) H 12/15/24 01:50 Total Protein 5.3 g/dL (6.6-8.7) L 12/15/24 01:50 Albumin 2.7 g/dL (3.5-5.2) L 12/15/24 01:50 Globulin 2.6 g/dL (1.3-4.6) 12/15/24 01:50 Lipase 160 U/L (13-60) H 12/15/24 01:50 All radiology interpretation(s) finalized by discharge Discharge Plan Discharge Patient Disposition: Placed in Observation Admit Provider: Alondra Lee Clinical Impression: Chest pain Coding Level of Care Code ED Digital Librarian for Samanthag Cindi
[2024-12-15] MEDS: morphine 4 mg/mL SDV 1 mL IVP (03:52)
[2024-12-15] MEDS: ondansetron 2 mg/ML SDV 2 mL 4 MG IVP (03:52)
[2024-12-15 04:21] LABS: Troponin 5 2HR Delta 10.0 ABS# (0-10)
[2024-12-15 04:24] LABS: Troponin 5 2HR 428.0 ng/L (0-15)
--- NOTE | 2024-12-15 04:57 | PM.HP ---
Providers/Chief Complaint Admitting Physician: Alondra Lee MD Primary Care Provider: PATRICE Nicole Chief Complaint: CP History of Present Illness Guido Whalen is a 54 year old male end-stage renal disease Saturday, diastolic CHF, history of disseminated blastomycosis, liver cirrhosis, COPD, obstructive sleep apnea,Who was recently admitted to the hospital earlier in November for COPD exacerbation and NSTEMI. He underwent cardiac catheterization with PCI to proximal LAD and mid circumflex. Over the next 24 hours patient continued to have chest pain and was taken back to the [facility] where he underwent another stent into the ostial groove circumflex. He was discharged home on aspirin and Plavix on December 02, 2024. He returned to the ER on December 06 complaining of generalized abdominal discomfort. CT of the abdomen and pelvis did not reveal any acute abnormalities except for signs of portal hypertension ascites and anasarca. Lipase was noted to be mildly elevated. He was able to be discharged home. He returns to the ER today with complaints of chest pain that started last night, located in the left chest shoulder along with numbness in his left forearm. EKG is not showing any acute ST-T wave changes. Baseline troponin is noted to be at 418 at baseline, increasing to 428 at 2 hours with a delta of 10. Review of Systems General: Reports: 10 or more systems reviewed and unremarkable except in HPI and below Const: Denies: fever(s), chills or body aches Eyes: Denies: change in vision, blurry vision or photophobia ENMT: Reports: hoarseness; Denies: throat pain, enlarged tonsils, odynophagia or nasal congestion Card: Denies: chest pain, palpitations, irregular heart rhythm, edema, swelling of feet/ankles, lightheadedness, pre-syncope, dyspnea on exertion or orthopnea Resp: Denies: dyspnea, productive cough, non-productive cough, wheezing, stridor, pain on inspiration, change in phlegm color, hemoptysis or chest congestion GI: Denies: abdominal pain, nausea, vomiting, hematemesis, coffee ground emesis, dysphagia, heartburn, diarrhea, constipation, GI cramping, change in stool character, hematochezia or melena : Denies: flank pain, dysuria, urinary frequency, urinary urgency, urinary hesitancy or hematuria Musc: Denies: neck pain, back pain, extremity pain, joint swelling, joint warmth or deformity Neuro: Denies: headache(s), numbness in extremities, weakness in extremities, sensory changes, difficulty walking, frequent falls, dizziness, vertigo, behavioral changes, Slurred speech present or seizure-like activity Psych: Denies: anxiety, depression, suicidal ideation or homicidal ideation Endo: Denies: polyuria, polydipsia, tired all the time, cold intolerance or hot flashes Chavez/Lymph: Denies: easy bruising or easy bleeding Medications/Allergies Home Medications ?Medication ?Instructions ?Recorded ?Confirmed ?Last Taken ?Type albuterol sulfate 90 mcg/actuation 2 puff inhalation Q4H PRN 08/05/24 12/15/24 Unknown History aerosol inhaler Shortness Of Breath cholecalciferol (vitamin D3) 1,250 50,000 mcg (40 x 1,250 mcg (50,000 08/27/24 12/15/24 09/09/24 Rx mcg (50,000 unit) capsule unit)) PO Q7D #4 caps pantoprazole 40 mg tablet,delayed 40 mg PO BID #180 tabs 09/08/24 12/15/24 12/14/24 Rx release (Protonix) ferrous sulfate 325 mg (65 mg 325 mg PO .QOD 09/16/24 12/15/24 12/14/24 History iron) tablet (FeroSul) doxazosin 8 mg tablet 8 mg PO DAILY #30 tabs 10/01/24 12/15/24 12/14/24 Rx gabapentin 100 mg capsule 100 mg PO TID #90 caps 11/10/24 12/15/24 12/14/24 Rx hydroxyzine HCl 25 mg tablet 25 mg PO BEDTIME PRN Insomnia 11/24/24 12/15/24 11/23/24 History loperamide 2 mg capsule See Rx Instructions .Route 11/24/24 12/15/24 Unknown History .COMPLEX PRN Diarrhea potassium chloride 10 mEq 10 meq PO DAILY 11/24/24 12/15/24 12/14/24 History tablet,extended release amlodipine 5 mg tablet 5 mg PO DAILY 30 days #30 tabs 12/02/24 12/15/24 12/14/24 Rx aspirin 81 mg tablet,delayed 81 mg PO DAILY 30 days #30 tabs 12/02/24 12/15/24 12/14/24 Rx release atorvastatin 40 mg tablet 40 mg PO BEDTIME 30 days #30 tabs 12/02/24 12/15/24 12/14/24 Rx bumetanide 2 mg tablet 1 mg (1/2 x 2 mg) PO DAILY 30 days 12/02/24 12/15/24 12/14/24 Rx #15 tabs carvedilol 25 mg tablet 25 mg PO BID 30 days #60 tabs 12/02/24 12/15/24 12/14/24 Rx clopidogrel 75 mg tablet 75 mg PO DAILY 30 days #30 tabs 12/02/24 12/15/24 12/14/24 Rx glucagon HCl 1 mg solution for 1 mg IM Q20M PRN hypoglycemia #1 ea 12/02/24 12/15/24 Unknown Rx injection (Glucagon (HCl) Emergency Kit) insulin glargine 100 unit/mL (3 10 unit (0.1 mL) SUBCUT BID 30 12/02/24 12/15/24 12/14/24 Rx mL) subcutaneous pen (Lant days #6 mL Solostar U-100 Insulin) insulin lispro 100 unit/mL See Rx Instructions .Route 12/02/24 12/15/24 12/14/24 Rx subcutaneous pen .COMPLEX 30 days #15 mL isosorbide mononitrate 30 mg 30 mg PO DAILY 30 days #3 tabs 12/02/24 12/15/24 12/14/24 Rx tablet,extended release 24 hr losartan 50 mg tablet 50 mg PO DAILY 30 days #30 tabs 12/02/24 12/15/24 12/14/24 Rx nitroglycerin 0.4 mg sublingual 0.4 mg sublingual Q5M PRN Chest 12/02/24 12/15/24 Unknown Rx tablet Pain 30 days #30 tabs sennosides 8.6 mg tablet (Laxative 8.6 mg PO BID 30 days #60 tabs 12/02/24 12/15/24 12/14/24 Rx (sennosides)) hydrocodone 5 mg-acetaminophen 325 1 tab PO Q8H PRN pain #7 tabs 12/06/24 12/15/24 Unknown Rx mg tablet polyethylene glycol 3350 17 17 g PO DAILY #238 grams 12/06/24 12/15/2412/14/25 Rx gram/dose oral powder (Gavilax) benzonatate 100 mg capsule 100 mg PO BID PRN Cough 12/08/24 12/15/24 Unknown History cephalexin 500 mg capsule 500 mg PO TID #21 caps 12/08/24 12/15/24 12/14/24 Rx escitalopram oxalate 5 mg tablet 5 mg PO DAILY 12/08/24 12/15/24 12/14/24 History vitamin B complex with vit C-folic 1 tab PO DAILY 12/08/24 12/15/24 12/14/24 History acid 800 mcg-zinc 12.5 mg tablet (RenaPlex) Allergies Allergy/AdvReac Type Severity Reaction Status Date / Time ketorolac Allergy ADR-Vomitin Verified 12/08/24 14:36 g PFSH Acute PFSH: Medical History Hypertension Diabetes CKD (chronic kidney disease) Liver cirrhosis MRSA pneumonia Blastomycosis of central nervous system Anemia Surgical History S/P percutaneous endoscopic gastrostomy (PEG) tube placement Tracheostomy status Past medical history positive for prolonged hospitalization secondary to angioedema requiring intubation, followed by tracheostomy after prolonged intubation, PEG tube placement after prolonged n.p.o. 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 07/17 MRI lumbar spine chronic degenerative changes, he was given prolonged antibiotics for possible osteomyelitis 08/01: Follow-up MRI no evidence of osteomyelitis Antimicrobial therapy IV vancomycin: Did not tolerate He was given linezolid, ceftaroline meropenem, micafungin, daptomycin Prolonged IV meropenem 07/23 till 08/01 Itraconazole prolonged therapy 07/22-08/01 PICC line removed And sent to spirometer [facility] provided Patient was discharged on room air EGD: 07/28: Gastritis: Colonoscopy 07/30: Nonbleeding internal hemorrhoids: 3 to 5 mm small polyps removed large 20 mm polyp removed as well: Patient was asked to follow-up for colonoscopy within 3 years Diarrhea: C. difficile panel negative: Patient was given Imodium on as-needed basis Family History Father Heart disease Social History Smoking and tobacco/nicotine status: former use of tobacco/nicotine Alcohol intake: former Household members: family Housing: House Vitals/I&O/Wt Last Vital Signs Temp 98.7 F 12/15/24 01:43 Pulse 73 12/15/24 01:43 Resp 17 12/15/24 03:52 BP 141/81 12/15/24 01:43 Pulse Ox 98 12/15/24 03:52 O2 Del Method Nasal Cannula 12/15/24 01:43 O2 Flow Rate 1.5 12/15/24 01:43 Weight last 48 hrs Weight 92.986 kg Physical Exam Narrative: General: No acute distress, AO x3 HEENT: PERRLA, pupils bilaterally equal and reactive, pallors not present Chest: Normal vesicular breath sounds, no added sounds, equal good air entry bilaterally CVS: S1-S2 regular, no murmurs, no tachycardia, no gallops, no rubs Abdomen: Soft, nontender, no organomegaly, bowel sounds present Neuro: No focal deficits, no facial deformity, AO x3, power 5/5 in all limbs Data 12/16/24 02:40 12/16/24 02:40 Other data: Radiology Impressions Chest X-Ray 12/15/24 01:52 IMPRESSION: Patchy interstitial opacities in the left lower lung field. This finding may be related to asymmetric edema or pneumonia. Laboratory Results WBC 3.17 10^3/uL (3.29-11.43) L 12/15/24 01:50 RBC 2.93 10^6/uL (3.85-5.65) L 12/15/24 01:50 Hgb 8.30 g/dL (11.27-16.99) L 12/15/24 01:50 Hct 27.2 % (37-53) L 12/15/24 01:50 MCV 92.8 fl (82-101) 12/15/24 01:50 MCH 28.3 pg (27-33) 12/15/24 01:50 MCHC 30.5 g/dL (30-55) 12/15/24 01:50 RDW 16.4 % (12.1-15.1) H 12/15/24 01:50 Plt Count 110 10^3/cmm (157-399) L 12/15/24 01:50 MPV 9.8 fL (7.4-10.4) 12/15/24 01:50 Neut % (Auto) 53.3 % 12/15/24 01:50 Lymph % (Auto) 29.7 % 12/15/24 01:50 [place] % (Auto) 11.4 % 12/15/24 01:50 Eos % (Auto) 5.0 % 12/15/24 01:50 Baso % (Auto) 0.6 % 12/15/24 01:50 Neut # (Auto) 1.69 10^3/uL (1.8-7.7) L 12/15/24 01:50 Lymph # (Auto) 0.9 10^3/uL (0.8-4.8) 12/15/24 01:50 [place] # (Auto) 0.4 10^3/uL (0.2-0.9) 12/15/24 01:50 Eos # (Auto) 0.2 10^3/uL (0.0-0.8) 12/15/24 01:50 Baso # (Auto) 0.0 10^3/uL (0.0-0.1) 12/15/24 01:50 Nucleated RBC % (auto) 0 % 12/15/24 01:50 Nucleated RBCs # 0.0 /100WBC 12/15/24 01:50 Sodium 141 mmol/L (136-145) 12/15/24 01:50 Potassium 3.3 mmol/L (3.5-5.1) L 12/15/24 01:50 Chloride 107 mmol/L (98-107) 12/15/24 01:50 Carbon Dioxide 25 mmol/L (22-29) 12/15/24 01:50 Anion Gap 12.3 (5-19) 12/15/24 01:50 BUN 15 mg/dL (6-20) 12/15/24 01:50 Creatinine 1.8 mg/dL (0.7-1.2) H 12/15/24 01:50 GFR Calculation 39.4 mL/min (90-130) L 12/15/24 01:50 Glucose 236 mg/dL (65-115) H 12/15/24 01:50 Calculated Osmolality 300 mOsm/kg (285-295) H 12/15/24 01:50 Calcium 6.6 mg/dL (8.5-10.5) L 12/15/24 01:50 Total Bilirubin 0.4 mg/dL (0.15-1.2) 12/15/24 01:50 AST 23 U/L (0-40) 12/15/24 01:50 ALT 17 U/L (0-41) 12/15/24 01:50 Alkaline Phosphatase 171 U/L (40-130) H 12/15/24 01:50 Troponin T Baseline 418 ng/L (0-15) H* 12/15/24 01:50 Troponin T 120 Minute 428.0 ng/L (0-15) H 12/15/24 04:00 Delta Troponin T 10.0 ABS# (0-10) 12/15/24 04:00 NT-Pro-B Natriuret Pep 5396 pg/mL (0-125) H 12/15/24 01:50 Total Protein 5.3 g/dL (6.6-8.7) L 12/15/24 01:50 Albumin 2.7 g/dL (3.5-5.2) L 12/15/24 01:50 Globulin 2.6 g/dL (1.3-4.6) 12/15/24 01:50 Lipase 160 U/L (13-60) H 12/15/24 01:50 A&P Assessment and plan 1. Chest pain: 54-year-old male with a recent history as noted above, NSTEMI, status post recent intervention presenting to the hospital with complaints of chest pain. EKG does not show any new EKG changes. Troponin noted to be in the 400 range, baseline at 418, 428 at 2 hours with a delta of 10. Will start patient on heparin infusion for possible NSTEMI. Check D-dimer for screening. Continue aspirin, Plavix, atorvastatin. Patient reports compliance with all medications at home. Cardiology consult requested from the emergency room. Patient has a known history of CKD, will consult nephrology to maintain his dialysis schedule in the hospital. Continue home dose of Bumex, currently appearing to be euvolemic. Plan: DVT prophylaxis: Currently on a heparin drip Full code PDMP PDMP Reviewed: Not Reviewed Attestations Medical Necessity Statement*: Less than 2 midnight stay is currently anticipated Coding Level of Care Code Acute Code for [facility] Fwd Diagnoses Chest pain R07.9
[2024-12-15] MEDS: HYDROcodone-acetaminophen 5-325 mg Tablet 1 TAB PO ×4 (05:52→20:12)
[2024-12-15] MEDS: heparin drip 25,000 UNIT/500 ML PREMIX 26.04 UNIT IV (05:57)
[2024-12-15] MEDS: heparin 5,000 unit/mL INJ 1 mL 4600 UNIT IVP (05:59)
--- NOTE | 2024-12-15 06:28 | ECG_ITS ---
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
--- NOTE | 2024-12-15 08:03 | ECG_ITS ---
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
[2024-12-15 08:21] LABS: Troponin 5 6HR 406.9 ng/L (0-15); Troponin 5 6HR Delta -11.1 ng/L (0-12)
--- NOTE | 2024-12-15 09:22 | USCV_ITS ---
Koby Guido Age: 54 Gender: M : 1970 Exam Date: 12/15/2024 14:21 Ordering Phys: Renaldo Marvin MD Technologist: Exam Location: [facility] [place] Indication: nstemi BP: 108 / 66 HR: Rhythm: Sinus Technical Quality: Adequate MEASUREMENTS (Male / Female) Normal Values 2D ECHO LV Diastolic Diameter PLAX 5.1 cm 4.2 - 5.9 / 3.9 - 5.3 cm IVS Diastolic Thickness 1.4 cm 0.6 - 1.0 / 0.6 - 0.9 cm IVS Systolic Thickness 1.8 cm LVPW Diastolic Thickness 1.4 cm 0.6 - 1.0 / 0.6 - 0.9 cm LVPW Systolic Thickness 2.4 cm LVOT Diameter 2.0 cm LV Ejection Fraction 2D Teich 59.1 % LV Ejection Fraction MOD 4C 51.3 % LA Diameter 4.2 cm RA Systolic Volume 4C AL 36.9 ml RA Systolic Volume 4C MOD 31.4 ml Aorta at Sinotubular Diameter 2.8 cm IVC Diameter 2.1 cm M-MODE LA Ao Ratio MM 1.3 AV Cusp Separation MM 2.2 cm FINDINGS Left Ventricle Right Ventricle Right Atrium Left Atrium Mitral Valve Aortic Valve Tricuspid Valve Pulmonic Valve Pericardium Aorta IVC CONCLUSIONS Limited echocardiogram performed to assess LV systolic function. LV systolic function is normal with EF of 55-60%. No regional wall motion abnormalities are seen. Raul Sánchez MD (Electronically Signed) Final Date: 15 December 2024 16:16 S
[2024-12-15] MEDS: nitroglycerin 1 gm/inch oint Pkt 0.5 INCH TOPICAL ×3 (09:47→21:07)
--- NOTE | 2024-12-15 11:33 | CT_ITS ---
WS: [id number] CT CHEST ANGIOGRAPHY WITH REFORMATS HISTORY: Chest pain, elevated D-dimer TECHNIQUE: Contiguous axial images are obtained through the chest during arterial injection of intravenous contrast. Images are reconstructed to evaluate the pulmonary arteries. MIP imaging also reviewed. All CT scans at [facility] use at least one of these dose optimization techniques: automated exposure control; mA and/or kV adjustment per patient size (includes targeted exams where dose is matched to clinical indication); or iterative reconstruction. CONTRAST: Omnipaque 350; 100 mL IV. DLP: 488.77 mGy.cm COMPARISON: 11/30/2024 Good opacification of the pulmonary arteries. No pulmonary embolism. Pulmonary arteries are slightly dilated. Mild atherosclerotic disease within the aorta. No aneurysm. No RIGHT heart strain. Mild LEFT heart enlargement. No pericardial effusion. Mild dependent changes at the lung bases. No pleural effusions. Mildly prominent lymphoid tissue at the hilar regions. No adenopathy. Small hiatal hernia. Cirrhotic liver. Small amount of ascites surrounding the liver and spleen. Prior cholecystectomy. No adrenal mass. The entire spleen is not included but the spleen does appear to be enlarged. Spleen measures 15.[address] from 08/05/2024. Mild soft tissue anasarca. No destructive bone lesions. CT/CT angio chest PE protcl [id number] IMPRESSION: 1. No pulmonary embolism. 2. Mild LEFT heart enlargement. 3. Soft tissue anasarca. 4. Cirrhotic liver with splenomegaly. 5. Prior cholecystectomy. 6. Small amount of ascites within the upper abdomen.
[2024-12-15 13:11] LABS: Partial Thromboplastin Time 118.3 SECONDS (23.9-36.7)
[2024-12-15] MEDS: iohexol 350 mg/mL 500 mL Btl (per mL) IV (13:47)
--- NOTE | 2024-12-15 13:48 | P.CONIM_ITS ---
<Statement entered by Raul Sánchez M.D - 12/19/24 10:55> Patient was evaluated and cared for in conjunction with an advanced practice practitioner.? I personally examined the patient and reviewed the chart and all pertinent data including imaging, telemetry, and laboratory results.? I discussed the patient in detail with the advanced practice practitioner.? Please see? their note for complete consult note, testing results and agreed upon plan of care for the patient. GENERAL: Patient is alert, awake and oriented x3. HEART: Regular S1 and S2 LUNGS: Clear to auscultate bilaterally. CENTRAL NERVOUS SYSTEM: Grossly nonfocal. EXTREMITIES: Lower extremities with out edema bilaterally. Providers/Reason For Consult 2 Consulting Physician/Specialty*: Dr Sánchez, cardiology Reason for Consult*: Chest pain Requesting Physician: Dr Marvin Attending Physician: Dr Marvin Primary Care Provider: PATRICE Nicole History of Present Illness History of Present Illness Guido Whalen is a 54 year old male with past medical history of ESRD on HD Saturday, diastolic CHF, liver cirrhosis, COPD, PEDRITO, NSTEMI on 11/24/2024 with PCI of the proximal LAD, mid circumflex, groove circumflex balloon and then due to recurrent chest pain was stented. Previous LVEF is approximately 50%. Troponin series: 418-> 428-> 406. At the time of my examination chest pain is rated 8-9 out of 10 it is a pinpoint location to the left of the sternum tender to the touch. BNP is reduced from previous admission now at 5396. Hemoglobin 8.3, down from 10.3 on 12/06/2024. D-dimer is 11. He does not have any shortness of breath. Review of Systems 2 Const: Denies: fever(s), chills, change in weight, fatigue or diaphoresis Eyes: Denies: change in vision ENMT: Denies: epistaxis Card: Reports: chest pain; Denies: palpitations, irregular heart rhythm, edema, syncope, pre-syncope, dyspnea on exertion, orthopnea or leg pain with exertion Resp: Denies: dyspnea, productive cough or wheezing GI: Denies: nausea, vomiting, hematemesis, hematochezia or melena : Denies: hematuria Musc: Denies: extremity swelling Chavez/Lymph: Denies: easy bruising or easy bleeding Medications/Allergies Home Medications ?Medication ?Instructions ?Recorded ?Confirmed ?Last Taken ?Type albuterol sulfate 90 mcg/actuation 2 puff inhalation Q 4H PRN 08/05/24 12/15/24 Unknown History aerosol inhaler Shortness Of Breath cholecalciferol (vitamin D3) 1,250 50,000 mcg (40 x 1, 250 mcg (50,000 08/27/24 12/15/24 09/09/24 Rx mcg (50,000 unit) capsule unit)) PO Q7D #4 caps pantoprazole 40 mg tablet,delayed 40 mg PO BID #180 ta bs 09/08/24 12/15/24 12/14/24 Rx release (Protonix) ferrous sulfate 325 mg (65 mg 325 mg PO .QOD 09/16/24 12/15/24 12/14/24 History iron) tablet (FeroSul) doxazosin 8 mg tablet 8 mg PO DAILY #30 tabs 10/0112/15/24 12/14/24 Rx gabapentin 100 mg capsule 100 mg PO TID #90 caps 11/1012/15/24 12/14/24 Rx hydroxyzine HCl 25 mg tablet 25 mg PO BEDTIME PRN Inso mnia 11/24/24 12/15/24 11/23/24 History loperamide 2 mg capsule See Rx Instructions .Route 0 11/24/24 12/15/24 Unknown History .COMPLEX PRN Diarrhea potassium chloride 10 mEq 10 meq PO DAILY 11/24/2412/14/24 History tablet,extended release amlodipine 5 mg tablet 5 mg PO DAILY 30 days #30 ta bs 12/02/24 12/15/24 12/14/24 Rx aspirin 81 mg tablet,delayed 81 mg PO DAILY 30 days #3 0 tabs 12/02/24 12/15/24 12/14/24 Rx release atorvastatin 40 mg tablet 40 mg PO BEDTIME 30 days #30 tabs 12/02/24 12/15/24 12/14/24 Rx bumetanide 2 mg tablet 1 mg (1/2 x 2 mg) PO DAILY 3 0 days 12/02/24 12/15/24 12/14/24 Rx #15 tabs carvedilol 25 mg tablet 25 mg PO BID 30 days #60 tab s 12/02/24 12/15/24 12/14/24 Rx clopidogrel 75 mg tablet 75 mg PO DAILY 30 days #30 t abs 12/02/24 12/15/24 12/14/24 Rx glucagon HCl 1 mg solution for 1 mg IM Q20M PRN hypogl ycemia #1 ea 12/02/24 12/15/24 Unknown Rx injection (Glucagon (HCl) Emergency Kit) insulin glargine 100 unit/mL (3 10 unit (0.1 mL) SUBCU T BID 30 12/02/24 12/15/24 12/14/24 Rx mL) subcutaneous pen (Lant days #6 mL Solostar U-100 Insulin) insulin lispro 100 unit/mL See Rx Instructions .Route 12/02/24 12/15/24 12/14/24 Rx subcutaneous pen .COMPLEX 30 days #15 mL isosorbide mononitrate 30 mg 30 mg PO DAILY 30 days #3 tabs 12/02/24 12/15/24 12/14/24 Rx tablet,extended release 24 hr losartan 50 mg tablet 50 mg PO DAILY 30 days #30 t abs 12/02/24 12/15/24 12/14/24 Rx nitroglycerin 0.4 mg sublingual 0.4 mg sublingual Q5M PRN Chest 12/02/24 12/15/24 Unknown Rx tablet Pain 30 days #30 tabs sennosides 8.6 mg tablet (Laxative 8.6 mg PO BID 30 da ys #60 tabs 12/02/24 12/15/24 12/14/24 Rx (sennosides)) hydrocodone 5 mg-acetaminophen 325 1 tab PO Q8H PRN pa in #7 tabs 12/06/24 12/15/24 Unknown Rx mg tablet polyethylene glycol 3350 17 17 g PO DAILY #238 grams 0 12/06/24 12/15/24 12/14/24 Rx gram/dose oral powder (Gavilax) benzonatate 100 mg capsule 100 mg PO BID PRN Cough 12/15/24 Unknown History cephalexin 500 mg capsule 500 mg PO TID #21 caps 12/0812/15/24 12/14/24 Rx escitalopram oxalate 5 mg tablet 5 mg PO DAILY 5 12/15/24 12/14/24 History vitamin B complex with vit C-folic 1 tab PO DAILY 11/2412/15/24 12/14/24 History acid 800 mcg-zinc 12.5 mg tablet (RenaPlex) Allergies Allergy/AdvReac Type Severity Reaction Status Date / Time ketorolac Allergy ADR-Vomitin Verified 12/08/24 14:36 g Current Medications Generic Name Dose Route Start Last Admin Trade Name Freq PRN Reason Stop Dose Admin Hydrocodone Bitart/Acetaminophen 1 tab 12/15/24 05:37 12/15/24 09:47 Hydrocodone-Acetaminophen 5-325 Mg Tablet PO 1 tab Q8H PRN Administration PAIN Amlodipine Besylate 5 mg 12/15/24 09:00 12/15/24 08:51 Amlodipine 5 Mg Tablet PO 5 mg DAILY LEATHA Administration Aspirin 81 mg 12/15/24 09:00 12/15/24 08:51 Aspirin 81 Mg Ec Tablet PO 81 mg DAILY LEATHA Administration Bumetanide 1 mg 12/15/24 09:00 12/15/24 08:51 Bumetanide 1 Mg Tablet PO 1 mg DAILY LEATHA Administration Carvedilol 25 mg 12/15/24 09:00 12/15/24 08:53 Carvedilol 25 Mg Tablet PO 25 mg BID LEATHA Administration Clopidogrel Bisulfate 75 mg 12/15/24 09:00 12/15/24 08:51 Clopidogrel 75 Mg Tablet PO 75 mg DAILY LEATHA Administration Heparin Sodium/Sodium Chloride 25,000 unit in 500 mls @ 0 mls/hr 12/15/24 05:45 12/15/24 13:30 Heparin Drip IV 10.75 unit/kg/hr CONT LEATHA 20 mls/hr Protocol Titration Per Protocol Insulin Human Lispro 0 unit 12/15/24 08:34 12/15/24 12:13 Insulin Lispro 100 Unit/1 Ml SUBCUT 4 unit WM&BEDTIME LEATHA Administration Protocol Isosorbide Mononitrate 30 mg 12/15/24 09:00 12/15/24 08:51 Isosorbide Mononitrate Er 30 Mg Tablet PO 30 mg DAILY LEATHA Administration Losartan Potassium 50 mg 12/15/24 09:00 12/15/24 08:51 Losartan 50 Mg Tablet PO 50 mg DAILY LEATHA Administration Nitroglycerin 0.5 inch 12/15/24 09:30 12/15/24 09:47 Nitroglycerin 1 Gm/Inch Oint Pkt TOPICAL 0.5 inch Q6H LEATHA Administration Pantoprazole Sodium 40 mg 12/15/24 09:00 12/15/24 08:[address] 40 Mg Tablet PO 40 mg BID LEATHA Administration PFSH Acute 2 PFSH: Medical History (Updated 12/15/24 @ 14:30 by PATRICE Coley) Coronary artery disease D-dimer, elevated Hypertension Diabetes CKD (chronic kidney disease) Liver cirrhosis MRSA pneumonia Blastomycosis of central nervous system Anemia Surgical History S/P percutaneous endoscopic gastrostomy (PEG) tube placement Tracheostomy status Past medical history positive for prolonged hospitalization secondary to angioedema requiring intubation, followed by tracheostomy after prolonged intubation, PEG tube placement after prolonged n.p.o. 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 07/17 MRI lumbar spine chronic degenerative changes, he was given prolonged antibiotics for possible osteomyelitis 08/01: Follow-up MRI no evidence of osteomyelitis Antimicrobial therapy IV vancomycin: Did not tolerate He was given linezolid, ceftaroline meropenem, micafungin, daptomycin Prolonged IV meropenem 07/23 till 08/01 Itraconazole prolonged therapy 07/22-08/01 PICC line removed And sent to spirometer [facility] provided Patient was discharged on room air EGD: 07/28: Gastritis: Colonoscopy 07/30: Nonbleeding internal hemorrhoids: 3 to 5 mm small polyps removed large 20 mm polyp removed as well: Patient was asked to follow-up for colonoscopy within 3 years Diarrhea: C. difficile panel negative: Patient was given Imodium on as-needed basis Family History Father Heart disease Social History Smoking and tobacco/nicotine status: former use of tobacco/nicotine Alcohol intake: former Household members: family Housing: House Vitals/I&O/Wt Last Vital Signs Temp 97.4 F L 12/15/24 12:00 Pulse 59 L 12/15/24 12:00 Resp 18 12/15/24 12:00 BP 108/65 12/15/24 12:00 Pulse Ox 95 12/15/24 12:00 O2 Del Method Room Air 12/15/24 12:00 O2 Flow Rate 1.5 12/15/24 04:48 12/14/24 12/15/24 12/15/24 22:59 06:59 14:59 Intake Total 196.602 / 196.602 Output Total 700 / 700 Balance -503.398 / -503.398 Weight last 48 hrs Weight 205 lb Physical Exam 2 Const: COMMON NORMALS: no acute distress and patient oriented x3 GENERAL APPEARANCE: cooperative and comfortable ORIENTATION/CONSCIOUSNESS: Yes awake, Yes oriented to person, Yes oriented to place and Yes oriented to time Chest: COMMONS NORMALS: normal inspection of the chest and normal palpation of entire chest wall CHEST: Yes Symmetrical chest wall rise Resp: COMMON NORMALS: normal respiratory effort, No retractions, No use of accessory muscles and clear to auscultation bilaterally EFFORT & INSPECTION: Yes symmetric chest movement AUSCULTATION: clear to auscultation bilaterally Cardio: COMMON NORMALS: regular rate, regular rhythm, S1 normal heart sound present, S2 normal heart sound present, No gallops present (Cardio), No clicks present (Cardio), No murmurs present (Cardio) and No rub (Cardio) RATE: r egular rate RHYTHM: regular rhythm HEART SOUNDS: S1 normal heart sound present and S2 normal heart sound present PERIPHERAL PULSES: radial pulses present Extremity: COMMON NORMALS: no pedal edema Neuro: COMMON NORMALS: patient oriented x3 and moves all extremities S ENSORIUM/ORIENTATION: Yes oriented to person, Yes oriented to place and Yes oriented to time Data 12/15/24 01:50 12/15/24 01:50 A&P Assessment and plan 1. Coronary artery disease: 2. Congestive heart failure: 3. Thrombocytopenia: 4. Hypertension: 5. D-dimer, elevated: 6. Chest pain: 7. Diabetes: 8. ESRD (end stage renal disease): Plan: Will request a CTA be performed to rule out PE, order limited echocardiogram to reassess LVEF, monitor decreased hemoglobin. He is on a heparin infusion. His troponin trend is decreasing, no ischemic EKG changes. Chest pain is reproducible with palpation. Will consider coronary angiogram tomorrow, reassess in the morning to determine further plan. Continue aspirin, atorvastatin, Bumex 1 mg daily, carvedilol, Plavix, isosorbide, losartan. Blood pressure is controlled. Afternoon update: CTA was negative for PE, as he continues to have significant pain, will plan for coronary angiogram tomorrow morning at 7 AM. N.p.o. after midnight tonight PDMP PDMP Reviewed: Not Reviewed Coding Level of Care Code Acute Code for g Fwd Diagnoses Coronary artery disease I25.10 Congestive heart failure I50.9 Thrombocytopenia D69.6 Hypertension I10 D-dimer, elevated R79.89 Chest pain R07.9 Diabetes E11.9 ESRD (end stage renal disease) N18.6
[2024-12-15] MEDS: morphine 4 mg/mL SDV 1 mL 2 MG IVP ×2 (18:31→22:38)
[2024-12-15 19:20] LABS: Partial Thromboplastin Time 65.1 SECONDS (23.9-36.7)
--- NOTE | 2024-12-15 21:37 | PM.CONSULT ---
Providers/Reason For Consult Consulting Physician/Specialty*: kommana/Nephrology Reason for Consult*: ESRD Attending Physician: Renaldo Marvin MD Primary Care Provider: PATRICE Nicole History of Present Illness History of Present Illness Guido Whalen is a 54 year old male Patient is a 54-year-old male with past medical history of end-stage renal disease on dialysis per Saturday schedule, CHF, liver cirrhosis, COPD, sleep apnea. He was recently here in November and had LAD stent and left circumflex stent. He presented back to the ER today with complaints of chest pain. Admitted for further management and nephrology consulted for management of dialysis. Lab data reviewed, potassium was 3.3 hemoglobin was 8.3 creatinine 1.8. Review of Systems Narrative: nrgative Medications/Allergies Home Medications ?Medication ?Instructions ?Recorded ?Confirmed ?Last Taken ?Type albuterol sulfate 90 mcg/actuation 2 puff inhalation Q4H PRN 08/05/24 12/15/24 Unknown History aerosol inhaler Shortness Of Breath cholecalciferol (vitamin D3) 1,250 50,000 mcg (40 x 1,250 mcg (50,000 08/27/24 12/15/24 09/09/24 Rx mcg (50,000 unit) capsule unit)) PO Q7D #4 caps pantoprazole 40 mg tablet,delayed 40 mg PO BID #180 tabs 09/08/24 12/15/24 12/14/24 Rx release (Protonix) ferrous sulfate 325 mg (65 mg 325 mg PO .QOD 09/16/24 12/15/24 12/14/24 History iron) tablet (FeroSul) doxazosin 8 mg tablet 8 mg PO DAILY #30 tabs 10/01/24 12/15/24 12/14/24 Rx gabapentin 100 mg capsule 100 mg PO TID #90 caps 11/10/24 12/15/24 12/14/24 Rx hydroxyzine HCl 25 mg tablet 25 mg PO BEDTIME PRN Insomnia 11/24/24 12/15/24 11/23/24 History loperamide 2 mg capsule See Rx Instructions .Route 11/24/24 12/15/24 Unknown History .COMPLEX PRN Diarrhea potassium chloride 10 mEq 10 meq PO DAILY 11/24/24 12/15/24 12/14/24 History tablet,extended release amlodipine 5 mg tablet 5 mg PO DAILY 30 days #30 tabs 12/02/24 12/15/24 12/14/24 Rx aspirin 81 mg tablet,delayed 81 mg PO DAILY 30 days #30 tabs 12/02/24 12/15/24 12/14/24 Rx release atorvastatin 40 mg tablet 40 mg PO BEDTIME 30 days #30 tabs 12/02/24 12/15/24 12/14/24 Rx bumetanide 2 mg tablet 1 mg (1/2 x 2 mg) PO DAILY 30 days 12/02/24 12/15/24 12/14/24 Rx #15 tabs carvedilol 25 mg tablet 25 mg PO BID 30 days #60 tabs 12/02/24 12/15/24 12/14/24 Rx clopidogrel 75 mg tablet 75 mg PO DAILY 30 days #30 tabs 12/02/24 12/15/24 12/14/24 Rx glucagon HCl 1 mg solution for 1 mg IM Q20M PRN hypoglycemia #1 ea 12/02/24 12/15/24 Unknown Rx injection (Glucagon (HCl) Emergency Kit) insulin glargine 100 unit/mL (3 10 unit (0.1 mL) SUBCUT BID 30 12/02/24 12/15/24 12/14/24 Rx mL) subcutaneous pen ( #6 mL Solostar U-100 Insulin) insulin lispro 100 unit/mL See Rx Instructions .Route 12/02/24 12/15/24 12/14/24 Rx subcutaneous pen .COMPLEX 30 days #15 mL isosorbide mononitrate 30 mg 30 mg PO DAILY 30 days #3 tabs 12/02/24 12/15/24 12/14/24 Rx tablet,extended release 24 hr losartan 50 mg tablet 50 mg PO DAILY 30 days #30 tabs 12/02/24 12/15/24 12/14/24 Rx nitroglycerin 0.4 mg sublingual 0.4 mg sublingual Q5M PRN Chest 12/02/24 12/15/24 Unknown Rx tablet Pain 30 days #30 tabs sennosides 8.6 mg tablet (Laxative 8.6 mg PO BID 30 days #60 tabs 12/02/24 12/15/24 12/14/24 Rx (sennosides)) hydrocodone 5 mg-acetaminophen 325 1 tab PO Q8H PRN pain #7 tabs 12/06/24 12/15/24 Unknown Rx mg tablet polyethylene glycol 3350 17 17 g PO DAILY #238 grams 12/06/24 12/15/24 12/14/24 Rx gram/dose oral powder (Gavilax) benzonatate 100 mg capsule 100 mg PO BID PRN Cough 12/08/24 12/15/24 Unknown History cephalexin 500 mg capsule 500 mg PO TID #21 caps 12/08/24 12/15/24 12/14/24 Rx escitalopram oxalate 5 mg tablet 5 mg PO DAILY 12/08/24 12/15/24 12/14/24 History vitamin B complex with vit C-folic 1 tab PO DAILY 12/08/24 12/15/24 12/14/24 History acid 800 mcg-zinc 12.5 mg tablet (RenaPlex) Allergies Allergy/AdvReac Type Severity Reaction Status Date / Time ketorolac Allergy ADR-Vomitin Verified 12/08/24 14:36 g Current Medications Generic Name Dose Route Start Last Admin Trade Name Freq PRN Reason Stop Dose Admin Hydrocodone Bitart/Acetaminophen 1 tab 12/15/24 15:36 12/15/24 20:12 Hydrocodone-Acetaminophen 5-325 Mg Tablet PO 1 tab Q6H PRN Administration PAIN Amlodipine Besylate 5 mg 12/15/24 09:00 12/15/24 08:51 Amlodipine 5 Mg Tablet PO 5 mg DAILY LEATHA Administration Aspirin 81 mg 12/15/24 09:00 12/15/24 08:51 Aspirin 81 Mg Ec Tablet PO 81 mg DAILY LEATHA Administration Atorvastatin Calcium 40 mg 12/15/24 21:00 12/15/24 21:07 Atorvastatin 40 Mg Tablet PO 40 mg BEDTIME LEATHA Administration Bumetanide 1 mg 12/15/24 09:00 12/15/24 08:51 Bumetanide 1 Mg Tablet PO 1 mg DAILY LEATHA Administration Carvedilol 25 mg 12/15/24 09:00 12/15/24 18:33 Carvedilol 25 Mg Tablet PO 25 mg BID LEATHA Administration Clopidogrel Bisulfate 75 mg 12/15/24 09:00 12/15/24 08:51 Clopidogrel 75 Mg Tablet PO 75 mg DAILY LEATHA Administration Heparin Sodium/Sodium Chloride 25,000 unit in 500 mls @ 0 mls/hr 12/15/24 05:45 12/15/24 20:36 Heparin Drip IV 10.75 unit/kg/hr CONT LEATHA 20 mls/hr Protocol Titration Per Protocol Insulin Human Lispro 0 unit 12/15/24 08:34 12/15/24 21:08 Insulin Lispro 100 Unit/1 Ml SUBCUT 4 unit WM&BEDTIME LEATHA Administration Protocol Isosorbide Mononitrate 30 mg 12/15/24 09:00 12/15/24 08:51 Isosorbide Mononitrate Er 30 Mg Tablet PO 30 mg DAILY LEATHA Administration Losartan Potassium 50 mg 12/15/24 09:00 12/15/24 08:51 Losartan 50 Mg Tablet PO 50 mg DAILY LEATHA Administration Morphine Sulfate 2 mg 12/15/24 15:36 12/15/24 18:31 Morphine 4 Mg/Ml Sdv 1 Ml IVP 2 mg Q4H PRN Administration SEVERE PAIN Nitroglycerin 0.5 inch 12/15/24 09:30 12/15/24 21:07 Nitroglycerin 1 Gm/Inch Oint Pkt TOPICAL 0.5 inch Q6H LEATHA Administration Pantoprazole Sodium 40 mg 12/15/24 09:00 12/15/24 18:[address] 40 Mg Tablet PO 40 mg BID LEATHA Administration PFSH Acute PFSH: Medical History (Updated 12/15/24 @ 14:30 by PATRICE Coley) Coronary artery disease D-dimer, elevated Hypertension Diabetes CKD (chronic kidney disease) Liver cirrhosis MRSA pneumonia Blastomycosis of central nervous system Anemia Surgical History S/P percutaneous endoscopic gastrostomy (PEG) tube placement Tracheostomy status Past medical history positive for prolonged hospitalization secondary to angioedema requiring intubation, followed by tracheostomy after prolonged intubation, PEG tube placement after prolonged n.p.o. 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 07/17 MRI lumbar spine chronic degenerative changes, he was given prolonged antibiotics for possible osteomyelitis 08/01: Follow-up MRI no evidence of osteomyelitis Antimicrobial therapy IV vancomycin: Did not tolerate He was given linezolid, ceftaroline meropenem, micafungin, daptomycin Prolonged IV meropenem 07/23 till 08/01 Itraconazole prolonged therapy 07/22-08/01 PICC line removed And sent to spirometer [facility] provided Patient was discharged on room air EGD: 07/28: Gastritis: Colonoscopy 07/30: Nonbleeding internal hemorrhoids: 3 to 5 mm small polyps removed large 20 mm polyp removed as well: Patient was asked to follow-up for colonoscopy within 3 years Diarrhea: C. difficile panel negative: Patient was given Imodium on as-needed basis Family History Father Heart disease Social History Smoking and tobacco/nicotine status: former use of tobacco/nicotine Alcohol intake: former Household members: family Housing: House Vitals/I&O/Wt Last Vital Signs Temp 96.8 F L 12/15/24 20:16 Pulse 60 12/15/24 20:16 Resp 13 12/15/24 20:16 BP 128/84 12/15/24 20:16 Pulse Ox 99 12/15/24 20:16 O2 Del Method Room Air 12/15/24 20:16 O2 Flow Rate 1.5 12/15/24 04:48 12/15/24 12/15/24 12/15/24 06:59 14:59 22:59 Intake Total 196.602 / 196.602 262 / 458.602 Output Total 700 / 700 Balance -503.398 / -503.398 262 / -241.398 Weight last 48 hrs Weight 96.162 kg Weight 92.986 kg Physical Exam Narrative: vital signs noted Patient is using NC O2 @ 2 L HEENT is normocephalic atraumatic. +[place] rt side Neck is supple. Lungs have much improved air movement bilaterally. Patient has an anterior chest wall permacath. Heart regular positive S1-S2. Abdomen is soft nontender positive bowel sounds. Extremities -the patient has bilateral trace leg edema. Neuro awake alert oriented x 3 Data 12/16/24 02:40 12/16/24 02:40 A&P Assessment and plan 1. ESRD (end stage renal disease): Plan: 1. ESRD: On MWF schedule, hemodialysis tomorrow, ultrafiltration as tolerated 2. History of hypertension, resume home medications 3. Chest pain, extensive cardiac history with recent stents, management per cardiology 4. Anemia: ELLIOTT with HD 5. Hypokalemia, will run on a 3K bath 6. Chronic respiratory failure in the setting of CHF COPD and sleep apnea Patient evaluated using audiovisual cart. Time spent 40 minutes. PDMP PDMP Reviewed: Not Reviewed Consult Attestations Medical Necessity Statement: PER DELIO Coding Level of Care Code Acute Code for Chg Fwd Diagnoses ESRD (end stage renal disease) N18.6
[2024-12-16] VITALS (9 sets, daily range): BP systolic 131–166; BP diastolic 69–85; PULSE 58–64; RESP 13–20; TEMP 36.7–36.9; O2SAT 97–98
[2024-12-16 02:45] LABS: Hematocrit 31.0 % (37-53); Hemoglobin 9.40 g/dL (11.27-16.99); Mean Corpuscular HGB Conc 30.3 g/dL (30-55); Mean Corpuscular Hemoglobin 28.4 pg (27-33); Mean Corpuscular Volume 93.7 fl (82-101); Nucleated Red Blood Cells % 0 %; Platelet Count 130 10^3/cmm (157-399); Red Blood Count 3.31 10^6/uL (3.85-5.65); White Blood Count 2.90 10^3/uL (3.29-11.43)
[2024-12-16 02:58] LABS: Partial Thromboplastin Time 54.6 SECONDS (23.9-36.7)
[2024-12-16 03:08] LABS: Troponin T (5th) Once 363 ng/L (0-15)
[2024-12-16] MEDS: nitroglycerin 1 gm/inch oint Pkt 0.5 INCH TOPICAL (03:14)
[2024-12-16] MEDS: morphine 4 mg/mL SDV 1 mL 2 MG IVP (03:15)
[2024-12-16 03:21] LABS: Alanine Aminotransferase 17 U/L (0-41); Albumin Level 3.1 g/dL (3.5-5.2); Alkaline Phosphatase 200 U/L (40-130); Anion Gap 16.5 (5-19); Aspartate Amino Transferase 27 U/L (0-40); Blood Urea Nitrogen 25 mg/dL (6-20); Calcium 8.5 mg/dL (8.5-10.5); Carbon Dioxide 27 mmol/L (22-29); Chloride 101 mmol/L (98-107); Creatinine Clr Calc Pharmacy 33.5214; Globulin 3.6 g/dL (1.3-4.6); Glucose 120 mg/dL (65-115); Magnesium 1.8 mg/dL (1.7-2.3); Osmolality Calculated 296 mOsm/kg (285-295); Potassium 4.5 mmol/L (3.5-5.1); Sodium 140 mmol/L (136-145); Total Protein 6.7 g/dL (6.6-8.7)
[2024-12-16] MEDS: heparin drip 25,000 UNIT/500 ML PREMIX 22 UNIT IV (04:50)
--- NOTE | 2024-12-16 05:25 | PC.NURSE ---
Patient had nose bleed that started at 0421 and stopped at 0450. Patient educated to hold direct pressure and an ice pack was applied. Dr. Lee notified and requested saline nasal spray. Received orders for nasal saline spray and just monitor nose bleeed for now.
[2024-12-16] MEDS: saline nasal spray 44mL Btl 1 SPRAY NASAL (06:08)
--- NOTE | 2024-12-16 06:57 | PC.NURSE ---
operations label clerk at bedside to take patient. operations label clerk given brief update.
--- NOTE | 2024-12-16 07:00 | XACV_ITS ---
Exam Room: 111 Ht: 173 cm Wt: 96 kg BSA: 2.18 m2 Gender: Male : 1970 Any Known Allergies: Other Exam Priority: Routine Procedure(s): Procedure Description: Diagnostic procedure Procedure Description: Left Heart Catheterization Procedure Description: Coronary Angiography Diagnostic Cath Status: Urgent Diagnostic Findings * INDICATION: Worsening angina/ NSTEMI. * Left Anterior Descending has patent prior stent. * Mid Right Coronary Artery: chronic total occlusion, CYNDI: 0 flow. * Mid left circumflex artery and OM branch have patent prior stent. Distal Circumflex is a small caliber vessel with significant 80% stenosis, CYNDI: 3 flow. * Left Main has no disease. * Coronary angiography shows right dominance. Conclusions 1. Patent prior stents. Very distal left circumflex artery has severe stenosis. Medical mangement for that as not supplying significant cardiac territory. Recommendations * Aggressive medical therapy for coronary artery disease. * Outpatient cardiology follow up in 2 weeks. Interventional RX Recommendation: medical therapy and/or counseling Diagnostic RX Recommendation: medical therapy and/or counseling Anticoagulation: Heparin Pressures Phase:Rest AO : 141 / 84 ( 110 ) @ 8:30:00 AM 165 / 78 ( 113 ) @ 8:36:00 AM 164 / 77 ( 112 ) @ 8:36:00 AM LV : 164 / -5 / 21 @ 8:35:00 AM 165 / -5 / 22 @ 8:36:00 AM Valves Phase:DefaultPhase AV : 0.0 @ 7:53:39 AM AV Mean Gradient: 0.0 @ 7:53:39 AM Clinical Evaluation EBL: 5mL-10mL Procedural Details Procedure Consent Obtained. Pre-Procedure Time Out. Identified patient by full name and date of as verbalized by the patient/guarantor. Does the consent match the physician's order: Yes. Accurate & Complete Informed Consent: Yes. Inpatient/Outpatient History & Physical on Chart: Yes. If H&P is completed, is and addenduem needed: No. Visualize and Verify Site with Patient/Guarantor: N/A. Relevant Radiology Images available: Yes. The risks, benefits, and alternatives of sedation and/or procedure were discussed by physician. The patient agrees to continue. Procedure started. [facility] Clinical Fraility Score: 4: Vulnerable. Plaster Block Layer Indications: ACS > 24 hours. Chest Pain Symptom Assessment: Typical Angina Symptoms. Cardiovascular Instability: No. Correct patient, site and procedure confirmed by cath team. PERRLA. 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 Lungs clear x 5 lobes. IV Site on Arrival: 20 gauge in the right anticubital. IV Site on Arrival: 20 gauge in the left anticubital. IV Fluids: 0.9% NaCl at KVO. 0 mL infused prior to label paster. Pre Procedural Pulses: bilateral dorsalis pedis was Doppled. Pre Procedural Pulses: bilateral posterior tibial was Doppled. Oxygen started at 2liters/min via nasal canula. bilateral groins was prepped with chloroprep then draped in the usual sterile fashion. Physician notified. Baseline sample Acquired. HR: 66 BPM. Patient's family unavailable. The patient requests Dr. Sánchez call his son Guanakito at [phone] at the completion of the procedure. Equipment: 6F - Femoral. Cardiac Cath Pack. ACIST Manifold Kit Model BT 2000. Heparinized Saline (2 units/mL), 1000 mL bag. Kit, Micropuncture. Physician arrived. Physician scrubbed in. Immediate Pre-Procedure Time Out. Correct Patient: Yes; Correct Procedure: Yes; Correct Site: Yes; Correct Patient Position: Yes; Correct Supplies: Yes; Dried Flammable Prep: Yes; Blood Products Available: N/A. Lidocaine 1% infiltrated to the left groin. Arterial access obtained with micropuncture set. A 5 american JL4 catheter in over the standard J wire. Catheter removed over the standard J wire. A 6 american JL4.5 catheter in over the standard J wire. Multiple views taken of left coronary artery. Catheter removed over the standard J wire. A 5 american JR4 catheter in over the standard J wire. Multiple views taken of right coronary artery. Catheter redirected to the LV. EDP Sample taken: LV 164/-6,21; HR: 68 BPM; SpO2: 97%. Pullback taken: LV 165/-6,22; AO 165/78(113); Mean: 0mmHg, Peak to Peak: 0mmHg, SEP: 18sec/min; HR: 68 BPM; SpO2: 96%. Catheter removed over the standard J wire. A Left femoral angiogram was performed to determine safe placement of closure device. Lidocaine 1% infiltrated to the left groin. A Mynx was successful obtaining hemostatsis at the Left Femoral artery insertion site. Mynx placed without complications. No signs or symptoms of hematoma noted. Sterile dressing applied per usual sterile fashion. Lot # [id number]. Exp. [id number]. Post Procedure: Pulses reassessed and unchanged. PERRLA. 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 No VTE prophylaxis required. Medication's Wasted: Lidocaine 1% = 10 mL. Medication's Wasted: Heparin = 1000 units. Medication's Wasted: Other = Fentanyl 25mcg. Total IV fluids: 50 mL. Post-op diagnosis: Patent prior stents. Complications: none. Estimated blood loss: 5mL-10mL. Responsiveness - Normal response to verbal stimuli; alert and oriented, PERRLA. Airway - Unaffected, no intervention required; spontaneous ventilation. Circulation: W/N/L, pulses unchanged. Nausea/Vomiting: No. Procedure completed. Patient transferred by bed to 1st floor. Vital chart was stopped. Access Site Site: Left Femoral artery Sheath Size: 6 Fr Hemostasis Method: Mynx Hemostasis Success: Successful Procedure Medications Start: 7:20 AM Stop: 7:20 AM Medication: Versed Amount: 1 mg Route: I.V. Start: 7:20 AM Stop: 7:20 AM Medication: Fentanyl Amount: 50 mcg Route: I.V. Start: 7:35 AM Stop: 7:35 AM Medication: Versed Amount: 1 mg Route: I.V. Start: 7:35 AM Stop: 7:35 AM Medication: Fentanyl Amount: 25 mcg Route: I.V. I, the attending physician, have reviewed and verified all procedure medications. Yes, all medications given per verbal order History/Risk Factors Hypertension: Yes Dyslipidemia: No Peripheral Arterial Disease (PAD): No Myocardial Infarction (UT): Yes Obesity: No Renal Disease: Yes Tobacco Use: Former Dialysis: Current Prior Interventions PCI: Yes CABG: No Valve Surgery: No Date of PCI: 12/01/2024 Report Signatures Finalized by Raul Sánchez MD on 12/16/2024 10:57 AM
--- NOTE | 2024-12-16 07:19 | P.HPUD_ITS ---
Surgery/Procedure H&P Update DATE OF PROCEDURE: December 16, 2024 DATE H&P PERFORMED: 12/15/24 H&P UPDATE INFORMATION: I have reviewed H&P completed within last 30 days, I have examined patient prior to procedure and No changes to prior documentation PREOP DIAGNOSIS: NSTEMI PRIMARY INDICATION FOR PROCEDURE: NSTEMI PLANNED PROCEDURE: Left heart cath with possible PCI PATIENT REASSESSED PRIOR TO SEDATION, WITH NO CHANGE NOTED: Yes PHYSICAL EXAM: alert, oriented x 3, clear to auscultation bilaterally and regu lar rate & rhythm AIRWAY EVAL/ANESTHESIA PLAN: normal airway, ASA III, Local Anesthesia, Risks, benefits & alternatives of sedation and/or procedure discussed and Patient agree s to continue as planned ADDITIONAL INFORMATION: Moderate sedation
--- NOTE | 2024-12-16 07:48 | PM.PROC ---
Procedure Note: Date of procedure: 12/16/24 Pre-procedure diagnosis: NSTEMI Post-procedure diagnosis: other (Patent prior stents. ) Procedure: Patent for stents in left circumflex artery/OM and LAD. At the distal end of left circumflex artery there is significant stenosis. However this is chronic and in very small sized, distal vessel. Medical therapy for that. Performing Provider: Raul Sánchez Complications: None Condition: stable Disposition: floor Coding Level of Care Code Acute Code for Josesito Puente
--- NOTE | 2024-12-16 08:20 | P.PN_ITS ---
<Statement entered by Raul Sánchez M.D - 12/19/24 10:59> Patient was cared for in conjunction with an advanced practice practitioner.? I reviewed the chart and all pertinent data including imaging, telemetry, and laboratory results.? I discussed the patient in detail with the advanced practice practitioner.? Please see?their note for progress note, testing results and agreed upon plan of care for the patient. Subjective 2 Subjective: He underwent coronary angiogram this morning, revealing patent stents in the left circumflex/OM and LAD, distal left circumflex contained significant stenosis however chronic and very small size very distal portion of the vessel. Medical management advised. He can discharge home. Vitals/I&O/Wt Last Vital Signs Temp 98.4 F 12/16/24 14:39 Pulse 64 12/16/24 14:39 Resp 16 12/16/24 14:39 BP 138/69 12/16/24 16:17 Pulse Ox 98 12/16/24 11:07 O2 Del Method Room Air 12/16/24 03:21 O2 Flow Rate 1.5 12/15/24 04:48 12/16/24 12/16/24 12/16/24 06:59 14:59 22:59 Intake Total 161.398 / 620.000 300 / 300 Output Total 125 / 1100 3300 / 3300 Balance 36.398 / -480.000 -3000 / -3000 Weight last 48 hrs Weight 208 lb 1.862 oz Weight 212 lb 1 oz Weight 212 lb Weight 205 lb Physical Exam 2 Const: COMMON NORMALS: no acute distress and patient oriented x3 GENERAL APPEARANCE: cooperative ORIENTATION/CONSCIOUSNESS: Yes awake, Yes oriented to person, Yes oriented to place and Yes oriented to time Chest: COMMONS NORMALS: normal inspection of the chest and normal palpation of entire chest wall CHEST: Yes Symmetrical chest wall rise Resp: COMMON NORMALS: normal respiratory effort, No retractions, No use of accessory muscles and clear to auscultation bilaterally AUSCULTATION: clear to auscultation bilaterally Cardio: COMMON NORMALS: regular rate, regular rhythm, S1 normal heart sound present, S2 normal heart sound present, No gallops present (Cardio), No clicks present (Cardio), No murmurs present (Cardio) and No rub (Cardio) RATE: r egular rate RHYTHM: regular rhythm HEART SOUNDS: S1 normal heart sound present and S2 normal heart sound present PERIPHERAL PULSES: radial pulses present positive right 2+ and femoral pulses present positive right 2+ Neuro: COMMON NORMALS: patient oriented x3 and moves all extremities S ENSORIUM/ORIENTATION: Yes oriented to person, Yes oriented to place and Yes oriented to time Skin: WOUNDS: Yes surgical site (no hematoma palpable) Details: no odor Data 12/16/24 02:40 12/16/24 02:40 A&P Assessment and plan 1. Coronary artery disease: 2. Chest pain: 3. Hypertension: 4. Diabetes: 5. ESRD (end stage renal disease): Plan: He had Mynx closure at the left femoral cath site. Once bedrest is complete and hemostasis is achieved he can discharge home. Continue Plavix, aspirin, losartan, carvedilol, Imdur. Follow-up in the cardiology clinic. PDMP PDMP Reviewed: Not Reviewed Attestations 2 Medical Necessity Statement*: Discharge home today Coding Level of Care Code Acute Code for [facility] Diagnoses Coronary artery disease I25.10 Chest pain R07.9 Hypertension I10 Diabetes E11.9 ESRD (end stage renal disease) N18.6
--- NOTE | 2024-12-16 09:46 | P.DS_ITS ---
Discharge Providers Date of Admission: 12/15/24 03:08 Date of Discharge: December 16, 2024 Attending Provider at Admission: Alondra Lee MD Attending Provider at Discharge: Renaldo Marvin MD Consults: Cardiology: Dr. Sánchez Telemetry nephrology Primary Care Provider: PATRICE Nicole Diagnoses at Discharge Discharge Diagnosis 1. Chest pain: Reason for Visit Reason for Visit: CP Hospital Course Hospital Course Guido Whalen is a 54 year old male end-stage renal disease Saturday, diastolic CHF, history of disseminated blastomycosis, liver cirrhosis, COPD, obstructive sleep apnea,Who was recently admitted to the hospital earlier in November for COPD exacerbation and NSTEMI. He underwent cardiac catheterization with PCI to proximal LAD and mid circumflex. Over the next 24 hours patient continued to have chest pain and was taken back to the [facility] where he underwent another stent into the ostial groove circumflex. He was discharged home on aspirin and Plavix on December 02, 2024. He returned to the ER on December 06 complaining of generalized abdominal discomfort. CT of the abdomen and pelvis did not reveal any acute abnormalities except for signs of portal hypertension ascites and anasarca. Lipase was noted to be mildly elevated. He was able to be discharged home. He returns to the ER today with complaints of chest pain that started last night, located in the left chest shoulder along with numbness in his left forearm. EKG is not showing any acute ST-T wave changes. Baseline troponin is noted to be at 418 at baseline, increasing to 428 at 2 hours with a delta of 10. Patient was admitted to the hospital further evaluation and management of chest pain with concerns for non-ST elevation CT. On admission D-dimer was elevated. CTA was done which ruled out pulmonary embolism or any intrathoracic etiology. He underwent cardiac angiogram on 12/16 which showed patent stents in LCx/OM and LAD. He was found to have a distal and significant stenosis of LCx however that was chronic and very small sized, distal vessel hence medical therapy was recommended. He underwent dialysis on 12/16. He has been discharged in hemodynamically stable condition. During hospitalization his dose of Imdur has been changed to 30 mg twice daily from 30 mg daily. Physical Exam Narrative: General: No acute distress, AO x3 HEENT: PERRLA, pupils bilaterally equal and reactive, pallors not present Chest: Normal vesicular breath sounds, no added sounds, equal good air entry bilaterally CVS: S1-S2 regular, no murmurs, no tachycardia, no gallops, no rubs Abdomen: Soft, nontender, no organomegaly, bowel sounds present Neuro: No focal deficits, no facial deformity, AO x3, power 5/5 in all limbs Discharge Data Studies Completed and Pending Completed Studies During Hospitalization Category Date Time Status CTA chest [CT angio chest PE protcl [id number]] Routine Cat Scan 12/15/24 11:33 Completed XR chest 1V portable [id number] Stat Exams 12/15/24 01:52 Completed CV. echo limited 96130 Routine Ultrasound 12/15/24 09:22 Completed Pending at discharge Category Date Time Status [employer] request for service Routine Exams 12/16/24 07:00 Taken PTT [Partial Thromboplastin Time] Timed Lab 12/16/24 09:40 Ordered Radiology Impressions Chest X-Ray 12/15/24 01:52 IMPRESSION: Patchy interstitial opacities in the left lower lung field. This finding may be related to asymmetric edema or pneumonia. Chest CTA 12/15/24 11:33 IMPRESSION: 1. No pulmonary embolism. 2. Mild LEFT heart enlargement. 3. Soft tissue anasarca. 4. Cirrhotic liver with splenomegaly. 5. Prior cholecystectomy. 6. Small amount of ascites within the upper abdomen. Limited echocardiogram: CONCLUSIONS Limited echocardiogram performed to assess LV systolic function. LV systolic function is normal with EF of 55-60%. No regional wall motion abnormalities are seen. Raul Sánchez MD (Electronically Signed) Final Date: 15 December 2024 16:16 Laboratory Results WBC 2.90 10^3/uL (3.29-11.43) L 12/16/24 02:40 RBC 3.31 10^6/uL (3.85-5.65) L 12/16/24 02:40 Hgb 9.40 g/dL (11.27-16.99) L 12/16/24 02:40 Hct 31.0 % (37-53) L 12/16/24 02:40 MCV 93.7 fl (82-101) 12/16/24 02:40 MCH 28.4 pg (27-33) 12/16/24 02:40 MCHC 30.3 g/dL (30-55) 12/16/24 02:40 RDW 16.5 % (12.1-15.1) H 12/16/24 02:40 Plt Count 130 10^3/cmm (157-399) L 12/16/24 02:40 MPV 10.3 fL (7.4-10.4) 12/16/24 02:40 Neut % (Auto) 45.6 % 12/16/24 02:40 Lymph % (Auto) 36.9 % 12/16/24 02:40 [place] % (Auto) 10.0 % 12/16/24 02:40 Eos % (Auto) 6.2 % 12/16/24 02:40 Baso % (Auto) 1.0 % 12/16/24 02:40 Neut # (Auto) 1.32 10^3/uL (1.8-7.7) L 12/16/24 02:40 Lymph # (Auto) 1.1 10^3/uL (0.8-4.8) 12/16/24 02:40 [place] # (Auto) 0.3 10^3/uL (0.2-0.9) 12/16/24 02:40 Eos # (Auto) 0.2 10^3/uL (0.0-0.8) 12/16/24 02:40 Baso # (Auto) 0.0 10^3/uL (0.0-0.1) 12/16/24 02:40 Nucleated RBC % (auto) 0 % 12/16/24 02:40 Nucleated RBCs # 0.0 /100WBC 12/16/24 02:40 APTT 54.6 SECONDS (23.9-36.7) H 12/16/24 02:40 D-Dimer 11.24 ug/mLFEU (0-0.59) H 12/15/24 01:50 Sodium 140 mmol/L (136-145) 12/16/24 02:40 Potassium 4.5 mmol/L (3.5-5.1) 12/16/24 02:40 Chloride 101 mmol/L (98-107) 12/16/24 02:40 Carbon Dioxide 27 mmol/L (22-29) 12/16/24 02:40 Anion Gap 16.5 (5-19) 12/16/24 02:40 BUN 25 mg/dL (6-20) H 12/16/24 02:40 Creatinine 2.8 mg/dL (0.7-1.2) H 12/16/24 02:40 GFR Calculation 23.6 mL/min (90-130) L 12/16/24 02:40 Glucose 120 mg/dL (65-115) H 12/16/24 02:40 POC Glucose 117 mg/dL (70-110) H 12/16/24 06:11 Calculated Osmolality 296 mOsm/kg (285-295) H 12/16/24 02:40 Calcium 8.5 mg/dL (8.5-10.5) 12/16/24 02:40 Magnesium 1.8 mg/dL (1.7-2.3) 12/16/24 02:40 Total Bilirubin 0.5 mg/dL (0.15-1.2) 12/16/24 02:40 AST 27 U/L (0-40) 12/16/24 02:40 ALT 17 U/L (0-41) 12/16/24 02:40 Alkaline Phosphatase 200 U/L (40-130) H 12/16/24 02:40 Troponin T 5th Gen ng/L 363 ng/L (0-15) H* 12/16/24 02:40 Troponin T Baseline 418 ng/L (0-15) H* 12/15/24 01:50 Troponin T 120 Minute 428.0 ng/L (0-15) H 12/15/24 04:00 Delta Troponin T 10.0 ABS# (0-10) 12/15/24 04:00 Troponin T Hi Sens 6Hr 406.9 ng/L (0-15) H 12/15/24 07:48 Troponin T Hi Sens 6Hr Delta -11.1 ng/L (0-12) L 12/15/24 07:48 NT-Pro-B Natriuret Pep 5396 pg/mL (0-125) H 12/15/24 01:50 Total Protein 6.7 g/dL (6.6-8.7) 12/16/24 02:40 Albumin 3.1 g/dL (3.5-5.2) L 12/16/24 02:40 Globulin 3.6 g/dL (1.3-4.6) 12/16/24 02:40 Lipase 160 U/L (13-60) H 12/15/24 01:50 Vitals Last Vital Signs Temp 98.0 F 12/16/24 08:00 Pulse 61 12/16/24 08:00 Resp 15 12/16/24 08:00 BP 149/78 12/16/24 08:00 Pulse Ox 97 12/16/24 08:00 O2 Del Method Room Air 12/16/24 03:21 O2 Flow Rate 1.5 12/15/24 04:48 Discharge Plan Discharge Patient Disposition: Home Condition: Stable Prescriptions: Continued benzonatate 100 mg capsule 100 mg PO BID PRN (Reason: Cough) escitalopram oxalate 5 mg tablet 5 mg PO DAILY RenaPlex 800 mcg- 12.5 mg tablet 1 tab PO DAILY cephalexin 500 mg capsule 500 mg PO TID Qty: 21 0RF cholecalciferol (vitamin D3) 1,250 mcg (50,000 unit) capsule 50,000 mcg PO Q7D Qty: 4 4RF pantoprazole [Protonix] 40 mg tablet,delayed release (DR/EC) 40 mg PO BID Qty: 180 3RF doxazosin 8 mg tablet 8 mg PO DAILY Qty: 30 4RF gabapentin 100 mg capsule 100 mg PO TID Qty: 90 3RF albuterol sulfate 90 mcg/actuation Hfa Aerosol Inhaler 2 puff INHALATION Q4H PRN (Reason: Shortness Of Breath) ferrous sulfate [FeroSul] 325 mg (65 mg iron) tablet 325 mg PO .QOD hydrocodone-acetaminophen 5-325 mg tablet 1 tab PO Q8H PRN (Reason: pain) Qty: 7 0RF polyethylene glycol 3350 [Gavilax] 17 gram/dose powder 17 g PO DAILY Qty: 238 0RF loperamide 2 mg capsule See Rx Instructions .ROUTE .COMPLEX PRN (Reason: Diarrhea) Rx Instructions: TAKE TWO CAPSULES (4mg) BY MOUTH ONCE NEEDED FOR diarrhea. potassium chloride 10 mEq tablet extended release 10 meq PO DAILY hydroxyzine HCl 25 mg tablet 25 mg PO BEDTIME PRN (Reason: Insomnia) atorvastatin 40 mg Tablet 40 mg PO BEDTIME 30 Days Qty: 30 0RF clopidogrel 75 mg Tablet 75 mg PO DAILY 30 Days Qty: 30 0RF amlodipine 5 mg Tablet 5 mg PO DAILY 30 Days Qty: 30 0RF aspirin 81 mg Tablet,Delayed Release (Dr/Ec) 81 mg PO DAILY 30 Days Qty: 30 0RF losartan 50 mg Tablet 50 mg PO DAILY 30 Days Qty: 30 0RF nitroglycerin 0.4 mg Tablet, Sublingual 0.4 mg sublingual Q5M PRN (Reason: Chest Pain) 30 Days Qty: 30 0RF carvedilol 25 mg tablet 25 mg PO BID 30 Days Qty: 60 0RF bumetanide 2 mg tablet 1 mg PO DAILY 30 Days Qty: 15 0RF insulin lispro 100 unit/mL Insulin Pen See Rx Instructions .ROUTE .COMPLEX 30 Days Qty: 15 0RF Rx Instructions: inject, subut, three times daily, after meals, based on moderate dose insulin sliding scale insulin glargine [Lantus Solostar U-100 Insulin] 100 unit/mL (3 mL) Insulin Pen 10 unit SUBCUT BID 30 Days Qty: 6 0RF glucagon HCl [Glucagon (HCl) Emergency Kit] 1 mg recon soln 1 mg IM Q20M PRN (Reason: hypoglycemia) Qty: 1 0RF Rx Instructions: until target blood sugar attained sennosides [Laxative (sennosides)] 8.6 mg tablet 8.6 mg PO BID 30 Days Qty: 60 0RF Changed isosorbide mononitrate 30 mg Tablet Extended Release 24 Hr 30 mg PO BID 30 Days Qty: 60 0RF Referrals: Suzi Wyatt NP [Nurse Practitioner, Cardiology] - 12/28/24 1:00 pm Corinne Nicholson FNP [Primary Care Provider, Nurse Practitioner] - 12/22/24 11:00 am Discharge Diet: Usual diet and Cardiac Discharge Activity: Resume usual activity and Increase activity as tolerated Patient Instructions: Coronary Artery Disease (DC), Chest Pain (DC), End Stage Kidney Disease (DC), Opioid Safety, Patient Portal & Anitra Instructions Activity Restrictions/Additional Instructions: Check your blood pressure daily at home maintain blood pressure diary. Goal blood pressure is between 100-140 mmHg systolic daily. Continue to follow-up with their dialysis sessions as before. Discharge Attestations Time Spent in Discharge Care*: greater than 30 min Specific Discharge Activities: educating patient, educating and/or supporting family/caregiver, discussing with pcp/other providers, discussing with skilled nursing case manager/social workers/dc planners, documenting/other paperwork and evaluating patient/reviewing data Status at Discharge: Cognitive status at discharge: cognitively intact , Behavioral status at discharge: cooperative , Functional status at discharge: independent ambulation , Overall status at discharge: patient is back to baseline Quality Metrics Clinical Quality Measures [ No reported AMI, CVA or VTE this stay] Coding Level of Care Code 39105 Total time (in minutes) for Discharge: 65 Diagnoses Chest pain R07.9
[2024-12-16 10:27] LABS: Partial Thromboplastin Time 31.7 SECONDS (23.9-36.7)
--- NOTE | 2024-12-16 11:52 | PC.HD ---
Orders for heparin during dialysis, however due to patient being post-catheterization, heparin is held. Dr. Durán aware and agrees.
--- NOTE | 2024-12-16 16:40 | P.PN_ITS ---
Subjective 2 Subjective: no new c/o Medications: Reviewed: Yes Vitals/I&O/Wt Last Vital Signs Temp 98.4 F 12/16/24 14:39 Pulse 64 12/16/24 14:39 Resp 16 12/16/24 14:39 BP 138/69 12/16/24 16:17 Pulse Ox 98 12/16/24 11:07 O2 Del Method Room Air 12/16/24 03:21 O2 Flow Rate 1.5 12/15/24 04:48 12/16/24 12/16/24 12/16/24 06:59 14:59 22:59 Intake Total 161.398 / 620.000 300 / 300 Output Total 125 / 1100 3300 / 3300 Balance 36.398 / -480.000 -3000 / -3000 Weight last 48 hrs Weight 94.4 kg Weight 96.19 kg Weight 96.162 kg Weight 92.986 kg Physical Exam 2 Narrative: vital signs noted Patient is using NC O2 @ 2 L HEENT is normocephalic atraumatic. +[place] rt side Neck is supple. Lungs have much improved air movement bilaterally. Patient has an anterior chest wall permacath. Heart regular positive S1-S2. Abdomen is soft nontender positive bowel sounds. Extremities -the patient has bilateral trace leg edema. Neuro awake alert oriented x 3 Data 12/16/24 02:40 12/16/24 02:40 A&P Assessment and plan 1. ESRD (end stage renal disease): Plan: 1. ESRD: On MWF schedule, hemodialysis today, ultrafiltration as tolerated 2. History of hypertension, resume home medications 3. Chest pain, extensive cardiac history with recent stents, management per cardiology 4. Anemia: ELLIOTT with HD 5. Hypokalemia, will run on a 3K bath 6. Chronic respiratory failure in the setting of CHF COPD and sleep apnea Patient evaluated using audiovisual cart. Time spent 40 minutes. PDMP PDMP Reviewed: Not Reviewed Attestations 2 Medical Necessity Statement*: per bernarda Coding Level of Care Code Acute Code for Chg Fwd Diagnoses ESRD (end stage renal disease) N18.6
--- NOTE | 2024-12-16 16:44 | PC.NURSE ---
patient not able to leave hospital due to waiting on son to come pick him up from [facility]. Son stated he had just mowed a yard and was waiting to get paid so that he could drive down to the hospital.
== END 2024-12-16 16:58 | disposition home or self-care (01) ==
LOC: ER 03:11 → ER IP 03:46 → CSU 07:56
PROVIDERS: Internal Medicine; Admitting Provider Student in an Organized Health Care Education/Training Program; Emergency Provider Emergency Medicine; PCP Nurse Practitioner; Visit Provider Student in an Organized Health Care Education/Training Program
DX: I25.10 Atherosclerotic heart disease of native coronary artery without angina pectoris (principal); Z95.5 Presence of coronary angioplasty implant and graft; I25.82 Chronic total occlusion of coronary artery; I25.2 Old myocardial infarction; K74.60 Unspecified cirrhosis of liver; Z86.14 Personal history of Methicillin resistant Staphylococcus aureus infection; Z87.891 Personal history of nicotine dependence; K21.9 Gastro-esophageal reflux disease without esophagitis; Z79.82 Long term (current) use of aspirin; Z79.4 Long term (current) use of insulin; E11.22 Type 2 diabetes mellitus with diabetic chronic kidney disease; I13.0 Hypertensive heart and chronic kidney disease with heart failure and stage 1 through stage 4 chronic kidney disease, or unspecified chronic kidney disease; N18.6 End stage renal disease; G47.33 Obstructive sleep apnea (adult) (pediatric); I50.30 Unspecified diastolic (congestive) heart failure; B40.7 Disseminated blastomycosis; Z82.49 Family history of ischemic heart disease and other diseases of the circulatory system
CPT/HCPCS: 36415; 36416; 71045; 71275; 80053; 82962; 83690; 83735; 83880; 84484; 85025; 85378; 85730; 90935; 93005; 93308; 93458; 96365; 96366; 96372; 96375; 96376; 99152; 99153; 99285; C1760; C1769; C1887; C1894; G0269; G0378; J1644; J1815; J2250; J2270; J2405; J3010; J7050; J9999; Q0163; Q5105; Q9967

== ENCOUNTER 2024-12-24 15:59 | Emergency (ER) | payer BC, MEDICAID, SELFPAY ==
[2024-12-24 16:08] VITALS: BP 128/73; PULSE 72; RESP 16; TEMP 36.7; O2SAT 96; BMI 31.9
[2024-12-24 16:56] LABS: Hematocrit 33.3 % (37-53); Hemoglobin 10.10 g/dL (11.27-16.99); Mean Corpuscular HGB Conc 30.3 g/dL (30-55); Mean Corpuscular Hemoglobin 28.8 pg (27-33); Mean Corpuscular Volume 94.9 fl (82-101); Nucleated Red Blood Cells % 0 %; Platelet Count 167 10^3/cmm (157-399); Red Blood Count 3.51 10^6/uL (3.85-5.65); White Blood Count 5.30 10^3/uL (3.29-11.43)
[2024-12-24 17:16] LABS: Alanine Aminotransferase 14 U/L (0-41); Albumin Level 3.4 g/dL (3.5-5.2); Alkaline Phosphatase 203 U/L (40-130); Anion Gap 14.2 (5-19); Aspartate Amino Transferase 27 U/L (0-40); Blood Urea Nitrogen 23 mg/dL (6-20); Calcium 8.2 mg/dL (8.5-10.5); Carbon Dioxide 29 mmol/L (22-29); Chloride 100 mmol/L (98-107); Creatinine Clr Calc Pharmacy 35.9350; Globulin 3.8 g/dL (1.3-4.6); Glucose 287 mg/dL (65-115); Osmolality Calculated 300 mOsm/kg (285-295); Potassium 5.2 mmol/L (3.5-5.1); Sodium 138 mmol/L (136-145); Total Protein 7.2 g/dL (6.6-8.7)
[2024-12-24 18:32] VITALS: BP 150/90; PULSE 74; O2SAT 97
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
[2024-12-24 18:56] VITALS: BP 164/80; PULSE 76; RESP 18; O2SAT 96
--- OUTSIDE RECORDS SUMMARY | 2024-12-25 07:01 | XMS_ITS | Clinical Summary ---
Author Organization [facility] Address [address] [place] [address] Phone Care Team Providers Care Blade Bender Furnace Tender Name Role Phone Unavailable Primary Care [...]
--- OUTSIDE RECORDS SUMMARY | 2024-12-25 07:01 | XMS_ITS | Encounter Summary ---
Author Organization [facility], [facility] Address [address] [place] [address] Phone Care Team Providers Care Laboratory Apparatus Glass Blower Name Role Phone LynCorinne Janine PULPWOOD CONTRACTOR Primary Care Provider [phone] Encounter Details Date Type Department Care Team (Late st Contact Info) Description 12/04/2024 TCM in Dialysis Clinic [facility], [facility] [address] [place] [address] Radha Wayen INSTRUMENTAL MUSIC TEACHER [address] [place] [address] Social History Tobacco Use Types [...] Guido Whalen, 1970, 54y, M Dialysis Location: [place] Attending Electrician Research: Efren Perez Service Date: 12/04/2024 Service Provider: [...] tests and treatments Comments: Patient admitted to [facility] for decompensated HF and NSTEMI. Underwent PCI. [...] mg once a day RenaPlex (vit b vribscg-a-paogg ac-zinc) 800 mcg- 12.5 mg, by mouth, [...] on filedocumented in this encounter Care Teams Laboratory Apparatus Glass Blower Relationship Specialty Start Date End Date Corinne Nicholson FNP [address] [place] [id number] PCP - General Nutrition 09/23/24 documented as of this encounter
--- OUTSIDE RECORDS SUMMARY | 2024-12-25 07:02 | XMS_ITS | Clinical Summary ---
Author Organization [facility] [place] Address [address] [place] [address] Phone Care Team Providers Care Patient Accounts Specialist Name Role Phone Unavailable Primary Care Provider [...] med 1 mL 10/18/19 25 Active insulin lispro (HumaLOG,ADMEL OG) 100 unit/mL [...] and/or add 12 units 15 mL 10/18/19 Active Blood-Glucose Meter (OneTouch Verio Flex meter) Check blood glucose 3 times daily before meals 100 Each 10/18/19 25 Active blood sugar diagnostic (OneTouch Verio test strips) Strip Check blood glucose 3 times daily before meals 100 Each 10/18/19 25 Active lancets 30 gauge Check blood glucose 3 times daily before meals 100 Each 10/18/19 25 Active Insulin Mccausland, Disposable, (Comfort EZ Pen Mccausland) 32 gauge x 5/32 Needle Inject insulin 3 times daily before meals 100 Each 10/18/19 25 Active insulin glargine (LANTUS) 100 unit/mL pen syringe Inject 10 Units by subcutaneous injection daily with breakfast. 15 mL 10/19/19 25 025 Active Problems Problem Noted Date [...] Type Department Care Team Description 12/03/2024 Telephone [facility] [address] [place] [address] Anna Trammell MD Referral 11/30/2024 Orders Only [facility] [address] [place] [phone] Anna Trammell MD Stage 4 chronic kidney disease ([facility]/HCC) (Primary Dx) 11/25/2024 Abstract [facility] [address] [place] [phone] Provider, Abstract 11/18/2024 Prep for Surgery [facility] [address] [place] [phone] Paty Vazquez DO Heart failure, unspecified HF chronicity, unspecified heart failure type ([facility]) (Primary Dx); NSTEMI (non-ST elevated myocardial infarction) ([facility]); Insulin dependent type 2 diabetes mellitus ([facility]) 11/11/2024 External Device Data [facility] ABSTRACTION Provider, Abstract 11/10/2024 External Device Data [facility] ABSTRACTION Provider, Abstract 11/10/2024 External Device Data [facility] ABSTRACTION Provider, Abstract 11/03/2024 External Device Data [facility] ABSTRACTION Provider, Abstract 10/20/2024 Telephone [facility] [address] [place] [phone] Eloina Carvajal NP instructions for cath. ( ) 10/15/2024 External Device Data ST[facility] ABSTRACTION Provider, Abstract 10/14/2024 External Device Data [facility] ABSTRACTION Provider, Abstract 10/14/2024 External Device Data ST[place] ABSTRACTION Provider, Abstract 10/14/2024 External Device Data [place] ABSTRACTION Provider, Abstract 10/13/2024 External Device Data ST[place] ABSTRACTION Provider, Abstract 10/07/2024 11:32 PM CDT - 10/17/2024 4:56 PM CDT Hospital Encounter [facility] 4[address] Cardiac [address] [place] [phone] Jaren Recinos MD Abbas, Muhammad Khalid, MD Kaur, Harinderjeet, MD Chinna, Jagdeep S, MD Acute on chronic diastolic congestive heart failure ([facility]/HCC) Discharge Disposition: Home or Self Care 10/07/2024 Travel from Last 3 Months Social History Tobacco [...] Description 01/19/2025 10:00 AM CDT Ancillary Procedure [facility]- [address] [address] Anna Trammell MD S [address] [address] 01/19/2025 11:00 AM CDT Office Visit [facility] Vascular Surgery [address] [place] [address] Anna Trammell MD [facility] [address] [place] [address] Health Maintenance Due Date Last [...] Screening 07/30/2034 Medical Devices Implanted Type Area Shoe Turner Device Identifier Shelf Expiration Date Model / Serial / Lot Cath Dialysis Glidepath 14.5fr 23cm [facility] [id number] - [id number] Implanted:Qty: 1 on 10/13/2024 by Wen Evans MD at [facility] Catheter Right: Chest Wall BARD ASHLEY VASC [id number] 02/23/2026 [id number] / / [id number] Procedures Procedure Name Priority Date/Time Associated Diagnosis [...] * TELEMETRY REPORT (10/19/2024 3:57 AM CDT) Provider Scanning ECG ORDERABLES Final Result * (ABNORMAL) POC GLUCOSE (10/17/2024 11:17 AM CDT) Only the most recent of37 resultswithin the time period is included. [facility] GLUCOSE POC 163(H) 74 - 99 mg/dL 10/17/2024 11:17 AM CDT [facility] SPECIMEN SOURCE, GLUCOSE POC Capillary 10/17/2024 11:17 AM CDT [facility] Blood, whole 10/17/2024 11:1 7 AM CDT 10/17/2024 11:39 AM CDT Moiz Perry MD POINT OF CARE TESTING Final Result Performing Organization Address City/State/[facility] Co de Phone Number [id number] [address] [place] [address] * (ABNORMAL) CBC WITH DIFFERENTIAL (10/17/2024 7:08 AM CDT) Only the most recent of7 resultswithin the time period is included. [facility] WBC 7.3 4.8 - 10.8 K/uL 10/17/2024 7:18 AM T [facility] RBC 2.78(L) 4.60 - 6.20 M/uL 10/17/2024 7:18 AM T [facility] HEMOGLOBIN 7.5(L) 14.0 - 18.0 g/dL 10/17/2024 7:18 AM T [facility] HEMATOCRIT 25.0(L) 41.0 - 53.0 % 10/17/2024 7:18 AM T [facility] MCV 89.9 84.0 - 103.0 fL 10/17/2024 7:18 AM T [facility] MCH 27.0 27.0 - 34.0 pg 10/17/2024 7:18 AM [facility] MCHC 30.0 30.0 - 35.0 g/dL 10/17/2024 7:18 AM [facility] PLATELETS 143 140 - 440 K/uL 10/17/2024 7:18 AM [facility] MPV 10.5 8.9 - 12.8 fL 10/17/2024 7:18 AM [facility] RDW 15.8(H) 11.0 - 14.5 % 10/17/2024 7:18 AM [facility] RDW-STDEV 52.1 37.0 - 54.0 fL 10/17/2024 7:18 AM [facility] NEUTROPHILS 69 42 - 75 % 10/17/2024 7:18 AM [facility] LYMPHOCYTES 22(L) 24 - 44 % 10/17/2024 7:18 AM [facility] MONOCYTES 7 2 - 10 % 10/17/2024 7:18 AM [facility] EOSINOPHILS 2 0 - 7 % 10/17/2024 7:18 AM [facility] BASOPHILS 0 0 - 1 % 10/17/2024 7:18 AM [facility] IMMATURE GRANULOCYTES 1 0 - 2 % 10/17/2024 7:18 AM [facility] NEUTROPHIL ABSOLUTE 5.02 2.00 - 8.00 K/uL 10/17/2024 7:18 AM [facility] LYMPHOCYTE ABSOLUTE 1.60 1.20 - 4.00 K/uL 10/17/2024 7:18 AM [facility] MONOCYTE ABSOLUTE 0.47 0.10 - 0.60 K/uL 10/17/2024 7:18 AM [facility] EOSINOPHIL ABSOLUTE 0.11 0.00 - 0.70 K/uL 10/17/2024 7:18 AM [facility] BASOPHILS ABSOLUTE 0.02 0.00 - 0.20 K/uL 10/17/2024 7:18 AM [facility] IMMATURE GRANULOCYTES ABSOLUTE 0.06 0.00 - 0.10 K/uL 10/17/2024 7:18 AM CDT [facility] SMEAR REVIEWED: NA - Not Applicable 10/17/2024 7:18 AM CDT [facility] Blood Venipuncture / Unknown 10/17/2024 7:08 AM CDT 10/17/2024 7:13 AM CDT Efren Perez MD HEMATOLOGY ORDERABLES Final Result Performing Organization Address City/[facility] Co de Phone Number [facility] CLIA # [id number] [address] [address] * (ABNORMAL) HEMOGLOBIN A1C (10/17/2024 7:08 AM CDT) HEMOGLOBIN A1C 7.1(H) <=5.6 % 10/18/2024 8:48 AM CDT [facility] EST. AVG GLUCOSE, A1C 157 mg/dL 10/18/2024 8:48 AM CDT [facility] Blood Venipuncture / Unknown 10/17/2024 7:08 AM CDT 10/17/2024 7:13 AM CDT Narrative [facility] - 10/18/2024 8:48 AM CDT HGB A1C INTERPRETATION NORMAL: <5.7% PRE-DIABETES: 5.7 - 6.4% DIABETES: 6.5% OR GREATER Moiz Perry MD CHEMISTRY ORDERABLES Final R esult Performing Organization Address City/[facility] Co de Phone Number [facility] CLIA # [id number] [address] [address] * MAGNESIUM LEVEL (10/17/2024 2:19 AM CDT) Only the most recent of9 resultswithin the time period is included. MAGNESIUM 1.9 1.6 - 2.6 mg/dL 10/17/2024 3:02 AM [facility] Blood Venipuncture / Unknown 10/17/2024 2:19 AM CDT 10/17/2024 2:29 AM CDT Caitlyn Doty SENIOR PRODUCT DEVELOPMENT SCIENTIST CHEMISTRY ORDERABLES Final Result [facility] CLIA # [id number] [address] [address] [place] [address] * (ABNORMAL) RENAL FUNCTION PANEL (10/17/2024 2:19 AM CDT) Only the most recent of9 resultswithin the time period is included. SODIUM 137 136 - 145 mmol/L 10/17/2024 3:02 AM [facility] POTASSIUM 3.9 3.5 - 5.1 mmol/L 10/17/2024 3:02 AM [facility] CHLORIDE 101 98 - 107 mmol/L 10/17/2024 3:02 AM [facility] CO2 23 22 - 29 mmol/L 10/17/2024 3:02 AM [facility] CALCIUM 8.2(L) 8.6 - 10.0 mg/dL 10/17/2024 3:02 AM [facility] BUN 29(H) 6 - 20 mg/dL 10/17/2024 3:02 AM [facility] CREATININE 2.22(H) 0.67 - 1.17 mg/dL 10/17/2024 3:02 AM [facility] GLUCOSE 154(H) 74 - 99 mg/dL 10/17/2024 3:02 AM [facility] ALBUMIN 3.0(L) 3.5 - 5.2 g/dL 10/17/2024 3:02 AM [facility] PHOSPHORUS 2.3(L) 2.5 - 4.5 mg/dL 10/17/2024 3:02 AM CDT [facility] GFR 34(L) >=60 mL/min/1. 73 sq meter 10/17/2024 3:02 AM CDT [facility] Comment:eGFR calculated with 2020 CKD-EPI equation. Vegetarian diet, extremely high or low muscle mass, and may affect results. Cystatin C with Glomerular Filtration Rate is a suitable alternative for these patients. ANION GAP 13 9 - 20 mmol/L 10/17/2024 3:02 AM CDT [facility] Blood Venipuncture / Unknown 10/17/2024 2:19 AM CDT 10/17/2024 2:29 AM CDT Caitlyn Doty [facility] CHEMISTRY ORDERABLES Final Result Performing Organization Address [facility] Co de Phone Number [facility] CLIA # [id number] [address] [address] * PHOSPHORUS (10/14/2024 5:28 AM CDT) PHOSPHORUS 4.0 2.5 - 4.5 mg/dL 10/14/2024 6:30 AM CDT [facility] Blood Venipuncture / Unknown 10/14/2024 5:28 AM CDT 10/14/2024 5:48 AM CDT Caitlyn Doty [facility] CHEMISTRY ORDERABLES Final Result Performing Organization Address City/[facility]/ZIP Co de Phone Number [facility] CLIA # [id number] [address] [address] * (ABNORMAL) COMPREHENSIVE METABOLIC PANEL (10/14/2024 5:28 AM CDT) SODIUM 134(L) 136 - 145 mmol/L 10/14/2024 6:30 AM [facility] POTASSIUM 4.3 3.5 - 5.1 mmol/L 10/14/2024 6:30 AM [facility] CHLORIDE 96(L) 98 - 107 mmol/L 10/14/2024 6:30 AM [facility] CO2 25 22 - 29 mmol/L 10/14/2024 6:30 AM [facility] CALCIUM 8.4(L) 8.6 - 10.0 mg/dL 10/14/2024 6:30 AM [facility] BUN 66(H) 6 - 20 mg/dL 10/14/2024 6:30 AM [facility] CREATININE 4.07(H) 0.67 - 1.17 mg/dL 10/14/2024 6:30 AM [facility] GLUCOSE 218(H) 74 - 99 mg/dL 10/14/2024 6:30 AM [facility] TOTAL PROTEIN 7.3 6.4 - 8.3 g/dL 10/14/2024 6:30 AM [facility] ALBUMIN 3.1(L) 3.5 - 5.2 g/dL 10/14/2024 6:30 AM [facility] BILIRUBIN TOTAL 0.5 0.0 - 1.0 mg/dL 10/14/2024 6:30 AM [facility] ALKALINE PHOSPHATASE 203(H) 40 - 129 U/L 10/14/2024 6:30 AM [facility] AST 19 10 - 50 U/L 10/14/2024 6:30 AM [facility] ALT 6 <=50 U/L 10/14/2024 6:30 AM [facility] GFR 16(L) >=60 mL/min/1. 73 sq meter 10/14/2024 6:30 AM [facility] Comment:eGFR calculated with 2020 CKD-EPI equation. Vegetarian diet, extremely high or low muscle mass, and may affect results. Cystatin C with Glomerular Filtration Rate is a suitable alternative for these patients. ANION GAP 13 9 - 20 mmol/L 10/14/2024 6:30 AM T [facility] Blood Venipuncture / Unknown 10/14/2024 5:28 AM CDT 10/14/2024 5:48 AM CDT Moiz Perry MD CHEMISTRY ORDERABLES Final R esult [facility] CLIA # [id number] [facility] [address] [place] [address] * (ABNORMAL) BASIC METABOLIC PANEL (10/13/2024 6:29 PM CDT) Only the most recent of5 resultswithin the time period is included. SODIUM 134(L) 136 - 145 mmol/L 10/13/2024 7:26 PM [facility] POTASSIUM 4.3 3.5 - 5.1 mmol/L 10/13/2024 7:26 PM [facility] CHLORIDE 95(L) 98 - 107 mmol/L 10/13/2024 7:26 PM [facility] CO2 25 22 - 29 mmol/L 10/13/2024 7:26 PM [facility] CALCIUM 8.5(L) 8.6 - 10.0 mg/dL 10/13/2024 7:26 PM [facility] BUN 61(H) 6 - 20 mg/dL 10/13/2024 7:26 PM [facility] CREATININE 4.23(H) 0.67 - 1.17 mg/dL 10/13/2024 7:26 PM [facility] GLUCOSE 214(H) 74 - 99 mg/dL 10/13/2024 7:26 PM [facility] GFR 16(L) >=60 mL/min/1. 73 sq meter 10/13/2024 7:26 PM [facility] Comment:eGFR calculated with 2020 CKD-EPI equation. Vegetarian diet, extremely high or low muscle mass, and may affect results. Cystatin C with Glomerular Filtration Rate is a suitable alternative for these patients. ANION GAP 14 9 - 20 mmol/L 10/13/2024 7:26 PM CDT [facility] Blood Venipuncture / Unknown 10/13/2024 6:29 PM CDT 10/13/2024 6:50 PM CDT us Caitlyn Doty SENIOR PRODUCT DEVELOPMENT SCIENTIST CHEMISTRY ORDERABLES Final Result [facility] CLIA # [id number] [address] [place] [address] * IR VENOUS ACCESS (10/13/2024 9:02 AM [...] dialysis. Diagnosis: NSTEMI (non-ST elevated myocardial infarction) ([facility]); Hypervolemia, unspecified hypervolemia type. Comparisons: None The [...] created for the patient record. A 5 Malian dilator and J-wire were placed. Lidocaine with [...] dialysis. Diagnosis: NSTEMI (non-ST elevated myocardial infarction) ([facility]); Hypervolemia, unspecified hypervolemia type. Comparisons: None The [...] created for the patient record. A 5 Malian dilator and J-wire were placed. Lidocaine with [...] edema. 3. Trace amount of perisplenic ascites Efren Perez MD US ORDERABLES Final Result * (ABNORMAL) PROTIME-INR (10/12/2024 10:24 AM CDT) Only the most recent of2 resultswithin the time period is included. PROTIME 16.4(H) 12.7 - 14.9 Seconds 10/12/2024 10:47 AM CDT [facility] INR 1.3(H) 0.8 - 1.2 10/12/2024 10:47 AM CDT [facility] Blood Venipuncture / Unknown 10/12/2024 10:24 AM CDT 10/12/2024 10:33 AM CDT Narrative [facility] - 10/12/2024 10:47 AM CDT Expected Values for INR: DVT/PE Goal INR 2.5; range 2.0 - 3.0 Valve Replacement Tissue Goal INR 2.5; range 2.0 - 3.0 Valve Replacement Mechanical Goal INR 3.0; range 2.5 - 3.5 POST-PR Goal INR 2.5; range 2.0 - 3.0 or Goal INR 3.0; range 2.5 - 3.5 Atrial Fibrillation Goal INR 2.5; range 2.0 - 3.0 Ischemic Stroke Goal INR 2.5; range 2.0 - 3.0 Efren Perez MD HEMATOLOGY ORDERABLES Final Result [facility] CLIA # [id number] [address] [place] [address] * ACUTE HEPATITIS PANEL (10/12/2024 10:23 AM CDT) HEPATITIS B SURFACE AG NON-REACT LITO Non-react lito 10/12/2024 12:34 PM CDT [facility] Comment:A non-reactive test result does not exclude the possibility of exposure to or infection with hepatitis B. HEPATITIS B CORE IGM NON-REACT LITO Non-react lito 10/12/2024 12:34 PM CDT [facility] Comment:IgM antibodies to HB c were not detected; does not exclude the possibility of exposure to HBV. HEPATITIS A IGM Non-react lito Non-react lito 10/12/2024 12:34 PM CDT [facility] Comment:A negative test resu lt does not exclude the possibility of exposure to Hepatitis A virus. HEPATITIS C AB NON-REACT LITO Non-react lito 10/12/2024 12:34 PM CDT [facility] Comment:Antibodies to HCV we re not detected, does not exclude the possibility of exposure to HCV. Blood Venipuncture / Unknown 10/12/2024 10:23 AM CDT 10/12/2024 10:38 AM CDT Efren Perez MD CHEMISTRY ORDERABLES Final R esult [facility] # [id number] [address] [place] [address] * IMMUNOFIXATION (10/12/2024 6:03 AM CDT) Pathologist [facility] IMMUNOFIXATION INTERP See Interpretation Below 10/12/2024 3:11 PM CDT [facility] Comment: Normal polyclonal immunoglobulins. Interpreted by: Tiffanie Laura MD Blood Venipuncture / Unknown 10/12/2024 6:03 AM CDT 10/12/2024 6:24 AM CDT Efren Perez MD CHEMISTRY ORDERABLES Final R esult Performing Organization Address City/[facility]/ZIP Co de Phone Number [facility] CLIA # [id number] [address] [place] [address] * (ABNORMAL) PROTEIN ELECTROPHORESIS W/REFLEX,SERUM (10/12/2024 6:03 AM CDT) TOTAL PROTEIN 6.9 6.4 - 8.3 g/dL 10/12/2024 3:10 PM CDT [facility] ALBUMIN SPE 2.83(L) 3.50 - 5.20 g/dL 10/12/2024 3:10 PM CDT [facility] ALPHA 1 GLOBULIN SPE 0.51(H) 0.21 - 0.45 g/dL 10/12/2024 3:10 PM CDT [facility] ALPHA 2 GLOBULIN SPE 0.95 0.50 - 1.01 g/dL 10/12/2024 3:10 PM CDT [facility] BETA GLOBULIN 0.99 0.60 - 1.06 g/dL 10/12/2024 3:10 PM CDT [facility] GAMMA GLOBULIN 1.58(H) 0.60 - 1.33 g/dL 10/12/2024 3:10 PM CDT [facility] SPE INTERP See Interpretation Below 10/12/2024 3:10 PM CDT [facility] Comment: Immunofixation was reflexed in order to separate the beta fractions. No monoclonal protein band identified. Interpreted by: Tiffanie Laura MD Blood Venipuncture / Unknown 10/12/2024 6:03 AM CDT 10/12/2024 6:24 AM CDT Narrative [facility] - 10/12/2024 3:10 PM CDT Immunofixation ordered at [facility] per policy per pathologist. Efren Perez MD CHEMISTRY ORDERABLES Final R esult [facility] CLIA # [id number] [address] [address] * (ABNORMAL) BRAIN NATRIURETIC PEPTIDE, BNP OR PROBNP (10/12/2024 6:03 AM CDT) Only the most recent of2 resultswithin the time period is included. [facility] PROBNP, N TERMINAL 19,441(H) 0 - 125 pg/mL 10/12/2024 7:12 AM CDT [facility] Comment: INTERPRETIVE COMMENT based on [...] ORDERABLES Final R esult Performing Organization Address [facility] Co de Phone Number [facility] CLIA # [id number] [address] [place] [address] * EXTRA TUBE (URINE MELENDEZ) (10/08/2024 7:39 PM CDT) Urine URINE SPECIMEN OBTAINED BY CLEAN CATCH PROCEDURE / Unknown Collection / Unknown 10/08/2024 7:39 PM CDT 10/08/2024 7:39 PM CDT us Caitlyn FARLEYP URINE ORDERABLES Final Resu lt Performing Organization Address [facility]/ZIP Co de Phone Number [facility] CLIA # [id number] [address] [place] [address] * SODIUM, RANDOM URINE (10/08/2024 7:39 PM CDT) SODIUM, URINE 117 mmol/L 10/08/2024 8:32 PM CDT [facility] Comment:Reference range not established Urine URINE SPECIMEN OBTAINED BY CLEAN CATCH PROCEDURE / Unknown Collection / Unknown 10/08/2024 7:39 PM CDT 10/08/2024 7:39 PM CDT Caitlyn Doty [facility] URINE ORDERABLES Final Resu lt Performing Organization Address [facility] Phone Number [facility] CLIA # [id number] [address] [place] [address] * (ABNORMAL) PROTEIN/CREATININE RATIO, URINE (10/08/2024 7:39 PM CDT) PROTEIN CONCENTRATION 37(H) 0 - 20 mg/dL 10/08/2024 8:32 PM CDT [facility] CREATININE, URINE 22.6(L) 40.0 - 278.0 mg/dL 10/08/2024 8:32 PM CDT [facility] Comment:Reference Range vari es with fluid intake and diet. PROTEIN/CREAT RATIO, URINE 1.64(H) 0.00 - 0.19 mg/mg Creatinine 10/08/2024 8:32 PM CDT [facility] Urine URINE SPECIMEN OBTAINED BY CLEAN CATCH PROCEDURE / Unknown Collection / Unknown 10/08/2024 7:39 PM CDT 10/08/2024 7:39 PM CDT Caitlyn Doty [facility] URINE ORDERABLES Final Resu lt Performing Organization Address [facility] Co de Phone Number [facility] CLIA # [id number] [address] [facility] [place] [address] * (ABNORMAL) URINALYSIS WITH REFLEX MICROSCOPIC (10/08/2024 7:39 PM CDT) COLOR UA Colorless(A ) Pale to Dark Yellow 10/08/2024 7:42 PM CDT [facility] CLARITY UA Clear Clear 10/08/2024 7:42 PM CDT [facility] SPECIFIC GRAVITY UA 1.010 1.003 - 1.035 10/08/2024 7:42 PM CDT [facility] PH UA 6.5 5.0 - 8.0 10/08/2024 7:42 PM CDT [facility] LEUKOCYTE ESTERASE UA Negative Negative 10/08/2024 7:42 PM CDT [facility] NITRITE UA Negative Negative 10/08/2024 7:42 PM CDT [facility] PROTEIN UA Trace(A) Negative 10/08/2024 7:42 PM CDT [facility] GLUCOSE UA 1+(A) Negative 10/08/2024 7:42 PM CDT [facility] KETONES UA Negative Negative 10/08/2024 7:42 PM CDT [facility] UROBILINOGEN UA <2.0 <2.0 mg/dL 7:42 PM CDT [facility] BILIRUBIN UA Negative Negative 10/08/2024 7:42 PM CDT [facility] BLOOD UA Negative Negative 10/08/2024 7:42 PM T [facility] Urine URINE SPECIMEN OBTAINED BY CLEAN CATCH PROCEDURE / Unknown Collection / Unknown 10/08/2024 7:39 PM CDT 10/08/2024 7:39 PM CDT us Caitlyn Doty SENIOR PRODUCT DEVELOPMENT SCIENTIST URINE ORDERABLES Final Resu lt [facility] CLIA # [id number] [address] [facility] [place] [address] * UNFRACTIONATED HEPARIN MONITORING (10/08/2024 1:59 PM CDT) Only the most recent of3 resultswithin the time period is included. ANTI-XA UNFRAC HEP 0.21 See Interpretation IU/mL 10/08/2024 2:26 PM CDT [facility] Blood Venipuncture / Unknown 10/08/2024 1:59 PM CDT 10/08/2024 2:05 PM CDT [facility] - 10/08/2024 2:26 PM CDT Therapeutic Range: PT/DVT Heparin Protocol 0.3 - 0.7 IU/ml Cardiac Heparin Protocol 0.3 - 0.6 IU/ml The reference range for this test is specific to the anticoagulant and is not appropriate for monitoring patients on a DOAC protocol. us Moiz Perry MD HEMATOLOGY ORDERABLES Final Result [facility] CLIA # [id number] [facility] [id number] * ECHO COMPLETE - CONTRAST AND STRAIN IF INDICATED (10/08/2024 10:09 AM CDT) [facility] EJECTION FRACTION 55 INTERFACE SYSTEM 10/08/2024 9:24 AM CDT [facility] SYSTEM - 10/08/2024 10:41 AM CDT [facility] Cardiovascular Services Echocardiography Laboratory [address] [place] [id number] Transthoracic Echocardiography Patient: Skyler Hernadez Study ID: ECHO COMPLETE Gender: M : 1970 Age: 54 Room: [facility] Study Date: 10/08/2024 Pt Status: Inpatient Study Time: 09:24:22 AM [facility] #: [id number] Ordering:Nupur Woodward Public Health Physician: Chad Valentino [facility] Indications and History: Hypotension or Hemodynamic [...] (H) zackery values outside specified reference range. [facility] Echo Labs are accredited with the Intersocietal Accreditation Commission - Echocardiography. Prepared and Electronically Authenticated Familia Reed MD Confirmed 10/08/2024 10:41 Procedure Note Familia Reed MD - 10/08/2024 [facility] Cardiovascular Services Echocardiography Laboratory [address] [place] [id number] Transthoracic Echocardiography Patient: Skyler Hernadez Study ID: ECHOCOMPLETJesica Gender: M : 1970 Age: 54 Room: [facility] Study Date: 10/08/2024 Pt Status: Inpatient Study Time: 09:24:22 AM CSN #: [id number] Ordering:Nupur Woodward Public Health Physician: Chad Valentino [facility] Indications and History: Hypotension or Hemodynamic [...] (H) zackery values outside specified reference range. [facility] are accredited with thePhoenix Children'S Hospitalsocietal Accreditation Commission - Echocardiography. Prepared and Electronically Authenticated Familia Reed MD Confirmed 10/08/2024 10:41 Nupur Woodward [facility] US ORDERABLES Final Resu lt Performing Organization Address [facility]/ZIP Co de Phone Number INTERFACE SYSTEM Refer to clinic/hospital department * (ABNORMAL) TROPONIN 6 HR, 5TH GEN (10/08/2024 5:59 AM CDT) TROPONIN T, 6 HR 5TH GEN 351(HH) <=15 ng/L 10/08/2024 6:56 AM CDT [facility] DELTA 6HR TROPONIN T % -17 See Interp. % 10/08/2024 6:56 AM T [facility] Blood Venipuncture / Unknown 10/08/2024 5:59 AM CDT 10/08/2024 6:09 AM CDT Narrative [facility] - 10/08/2024 6:56 AM CDT Troponin elevated. Delay in collection of timed specimen beyond recommended collection interval. Results must be interpreted in clinical context. Delta not changing. Jonathon Isaac APRN CHEMISTRY ORDERABLES Final R esult Performing Organization Address [facility]/ZIP Co de Phone Number [facility] CLIA # [id number] [address] [address] * (ABNORMAL) TROPONIN 2 HR, 5TH GEN (10/08/2024 3:41 AM CDT) TROPONIN T, 2 HR 5TH GEN 363(HH) <=15 ng/L 10/08/2024 4:18 AM CDT [facility] DELTA 2HR TROPONIN T % -14 See Interp. % 10/08/2024 4:18 AM CDT [facility] Blood Venipuncture / Unknown 10/08/2024 3:41 AM CDT 10/08/2024 3:47 AM CDT Narrative [facility] - 10/08/2024 4:18 AM CDT Troponin elevated. Delay in collection of timed specimen beyond recommended collection interval. Results must be interpreted in clinical context. Delta not changing. Jonathon Isaac APRN CHEMISTRY ORDERABLES Final R esult [facility] CLIA # [id number] [address] [place] [address] * (ABNORMAL) IRON, TIBC, AND PERCENT SATURATION (10/08/2024 3:41 AM CDT) [facility] IRON 23(L) 59 - 158 ug/dL 10/08/2024 5:07 AM CDT [facility] TIBC 190(L) 250 - 450 ug/dL 10/08/2024 5:07 AM CDT [facility] IRON % SATURATION 12(L) 15 - 60 % 10/08/2024 5:07 AM CDT [facility] Blood Venipuncture / Unknown 10/08/2024 3:41 AM CDT 10/08/2024 3:47 AM CDT us Hernan Aleman MD CHEMISTRY ORDERABLES Fi nal Result Performing Organization Address [facility] Co de Phone Number [facility] CLIA # [id number] [address] [address] [place] [address] * FERRITIN (10/08/2024 3:41 AM CDT) FERRITIN 189.7 30.0 - 400.0 ng/mL 10/08/2024 5:03 AM CDT [facility] Blood Venipuncture / Unknown 10/08/2024 3:41 AM CDT 10/08/2024 3:47 AM CDT Hernan Aleman MD CHEMISTRY ORDERABLES Fi nal Result Performing Organization Address [facility] Phone Number [facility] CLIA # [id number] [address] [address] * PTT (10/08/2024 1:44 AM CDT) PTT 33.1 24.8 - 37.2 seconds 10/08/2024 3:05 AM CDT [facility] Blood Venipuncture / Unknown 10/08/2024 1:44 AM CDT 10/08/2024 1:50 AM CDT Narrative [facility] - 10/08/2024 3:05 AM CDT Therapeutic Range: Hi-level PE/DVT heparin protocol 80.1 - 95.0 sec Lo-level PE/DVT heparin protocol 70.1 - 85.0 sec Cardiac Heparin Protocol 70.1 - 100.0 sec Jaren Recinos MD HEMATOLOGY ORDERABLES Final Result Performing Organization Address [facility] Co de Phone Number [facility] CLIA # [id number] [address] [address] [place] [address] * (ABNORMAL) TROPONIN BASELINE, 5TH GEN (10/07/2024 11:48 PM CDT) Pathologist [facility] TROPONIN T, BASELINE 5TH GEN 423(HH) <=15 ng/L 10/08/2024 12:40 AM CDT [facility] Blood Venipuncture / Unknown 10/07/2024 11:48 PM CDT 10/07/2024 11:51 PM CDT Narrative [facility] - 10/08/2024 12:40 AM CDT Troponin elevated. [facility] Jameson Isaac MORTAR MIXER OPERATOR CHEMISTRY ORDERABLES Final R esult [facility] CLIA # [id number] [address] [place] [address] * (ABNORMAL) HEPATIC FUNCTION PANEL (10/07/2024 11:48 PM CDT) [facility] TOTAL PROTEIN 7.9 6.4 - 8.3 g/dL 10/08/2024 12:27 AM T [facility] ALBUMIN 3.5 3.5 - 5.2 g/dL 10/08/2024 12:27 AM CDT [facility] BILIRUBIN TOTAL 0.4 0.0 - 1.0 mg/dL 10/08/2024 12:27 AM T [facility] BILIRUBIN DIRECT 0.2 0.0 - 0.3 mg/dL 10/08/2024 12:27 AM CDT [facility] ALKALINE PHOSPHATASE 204(H) 40 - 129 U/L 10/08/2024 12:27 AM CDT [facility] AST 23 10 - 50 U/L 10/08/2024 12:27 AM CDT [facility] ALT 8 <=50 U/L 10/08/2024 12:27 AM T [facility] Blood Venipuncture / Unknown 10/07/2024 11:48 PM CDT 10/07/2024 11:51 PM CDT Jaren Recinos MD CHEMISTRY ORDERABLES Final R esult [facility] # [id number] [address] [place] [address] * XR CHEST PA OR AP 1 [...] and spondylosis. Postcholecystectomy. Narrative Procedure Note Marcelo Ross, DO - 10/08/2024 IMPRESSION: Please see below. [...] INTERFACE SYSTEM - 10/08/2024 8:07 AM CDT [address] [address] Test Date: 2024-10-07 Pat Name: SKYLER HERNADEZ Department: 11 Room: Gender: Male Risk Mgr: [id number] : 1970 Requested By: Order Number: [id number] Reading MD: Lamine Plunkett Measurements Intervals [place] Rate: 90 P: 45 MT: 126 QRS: 78 QRSD: 106 T: -18 QT: 398 QTc: 486 Interpretive Statements Normal sinus rhythm T wave abnormality, consider inferior ischemia Abnormal ECG Electronically Signed On 10-08-2024 8:07:47 CDT by Lamine Plunkett Procedure Note Lamine Plunkett MD - 10/08/[address] [address] Test Date: 2024-10-07 Pat Name: SKYLER HERNADEZ Department: 11 Room: Gender: Male Risk Mgr: [id number] : 1970 Requested By: Order Number: [id number] Reading MD: Lamine Plunkett Measurements Intervals [place] Rate: 90 P: 45 MT: 126 QRS: 78 QRSD: 106 T: -18 QT: 398 QTc: 486 Interpretive Statements Normal sinus rhythm T wave abnormality, consider inferior ischemia Abnormal ECG Electronically Signed On 10-08-2024 8:07:47 CDT by Lamine Plunkett Jonathon Isaac APRN ECG ORDERABLES Final Result Performing Organization Address City/State/[facility] Co de Phone Number INTERFACE SYSTEM Refer to clinic/hospital department from Last 3 Months Insurance [facility] MEDICAID RX INFOCROSSING Medicaid Advance Directives For more information, please contact: [phone] * Full Code (Latest Code Status on File) Date Activated Date Inactivated Comments 10/08/2024 1:49 AM 10/17/2024 6:56 PM
--- OUTSIDE RECORDS SUMMARY | 2024-12-25 07:02 | XMS_ITS | Clinical Summary ---
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 Role Phone Corinne Nicholson AUTO BATTERY BUILDER Primary Care Provider [phone] Allergies Active Allergy Reactions Criticality Noted Date [...] Encounters Date Type Department Care Team Description 12/21/2024 Orders Only [facility] [address] [place] [phone] Efren Perez MD 12/14/2024 Orders Only [facility] [address] [place] [id number] Efren Perez MD 12/11/2024 Treatment [facility], [facility] [address] [place] [address] Radha Wayne, SKYLA 12/09/2024 Documentation Only [facility], [facility] [address] [place] [address] Suzie Cee 12/07/2024 Orders Only [facility], [facility] [address] [place] [address] Efren Perez MD 12/04/2024 Orders Only [facility], [facility] [address] [place] [address] Efren Perez MD 12/04/2024 TCM in Dialysis Clinic [address] [place] [address], [facility] [address] [place] [address] Radha Wayne, SKYLA 12/04/[address] [place] [address], [facility] [address] [place] [address] Radha Wayne, SKYLA 11/23/2024 Orders Only [facility], [facility] [address] [place] [address] Efren Perez MD 11/18/[address] [place] [address], [facility] [address] [place] [address] Radha Wayne, SKYLA 11/16/2024 Orders Only [facility], [facility] [address] [place] [address] Efren Perez MD 11/11/[address] [place] [address], [facility] [address] [place] [address] Efren Perez MD 11/09/2024 Orders Only [facility], [facility] [address] [place] [address] Efren Perez MD 11/04/2024 Office Communication [facility], [facility] [address] [place] [address] Radha Wayne, SKYLA 11/04/2024 Telephone [facility], [facility] [address] [place] [address] Efren Perez MD 11/04/[address] [place] [address], [facility] [address] [place] [address] Radha Wayne, SKYLA 11/03/2024 Office Communication [facility], [facility] [address] [place] [address] Radha Wayne, SKYLA 11/02/2024 Orders Only [facility], [facility] [address] [place] [address] Efren Perez MD 10/30/[address] [place] [address], [facility] [address] [place] [address] Radha Wayne, SKYLA 10/26/2024 Orders Only [facility], [facility] [address] [place] [address] Efren Perez MD 10/21/[address] [place] [address], [facility] [address] [place] [address] Efren Perez MD 10/20/2024 Documentation Only [facility], [facility] [address] [place] [address] Ella Aguirre 10/20/2024 Telephone [facility], [facility] [address] [place] [address] Ella Aguirre 10/19/2024 Orders Only [facility], [facility] [address] [place] [address] Efren Perez MD 10/12/2024 Documentation Only [facility], [facility] [address] [place] [address] Marco Loo 10/12/2024 Telephone [facility], [facility] [address] [place] [address] Ella Aguirre 10/07/2024 Documentation Only [facility], [facility] [address] [place] [address] Shadiier, 10/07/2024 Results Follow-Up [facility], [facility] [address] [place] [phone] Radha Wayne NP 10/07/2024 Documentation Only [facility], [facility] [address] [place] [phone] Timothy, 09/29/2024 Telephone [facility], [facility] [address] [place] [address] Marco Loo from Last 3 Months Immunizations Immunization Administration [...] Priority Date/Time Associated Diagnosis Comments CHEMISTRY Routine 12/21/2024 PATIENT INFORMATION Routine 12/21/2024 URINE CLEARANCE Routine 12/21/2024 HEMATOLOGY Routine 12/21/2024 PATIENT INFORMATION Routine 12/21/2024 [facility] RESULTS Routine 12/14/2024 HD KINETICS Routine 12/14/2024 POST CHEMISTRY Routine 12/14/2024 URINE CLEARANCE Routine 12/14/2024 CHEMISTRY Routine 12/14/2024 HEMATOLOGY Routine 12/14/2024 PATIENT INFORMATION Routine 12/14/2024 PATIENT INFORMATION Routine 12/14/2024 CHEMISTRY Routine 12/07/2024 IMMUNO CHEMISTRY Routine 12/07/2024 [...] PANEL (BMP) (EXTERNAL LAB ENTRY) Routine 09/29/2024 from Last 3 Months Results * (ABNORMAL) URINE CLEARANCE (12/21/2024) Only the most recent of7 resultswithin the time period is included. Creatinine, Urine Timed 93.3 mg/dL [facility] Creatinine, 24H Ur 0.9 0.7 - 1.8 g/24 hr [facility] Creatinine Clear, Urine 24.9 mL/min [facility] Creat Clear, Urine Norm 20.6(L) 94.0 - 122.0 mL/min [facility] Comment: Custom Alert 12/21/2024 12/22/2024 10: 17 AM CDT Narrative [facility] - 12/23/2024 Unless otherwise specified, test(s) performed at: [facility], [address] [place] [address] CITIZEN PARTICIPATION SPECIALIST: Augustin Finney M.D. For any questions, please call customer service at FREQUENCY:OTHER Resulting Agency Comment Specimen source: Urine Efren Perez MD LAB URINE ORDERABLES Edited Result - Final Performing Organization Address City/[facility]/ZIP Co de Phone Number [employer] See order comments or contact performing lab Unknown, [place] * PATIENT INFORMATION (12/21/2024) Only the most recent of14 resultswithin the time period is included. Pathologist [facility] Patient BSA 2.09 sq. M. [facility] Comment: Normalized values are calculated using the patient's actual BSA and normalized to the average BSA of 1.73m2. 12/21/2024 12/23/2024 9:1 4 AM CDT Narrative [facility] - 12/23/2024 Unless otherwise specified, test(s) performed at: [facility], [address] [place] [address] CITIZEN PARTICIPATION SPECIALIST: Augustin Finney M.D. For any questions, please call customer service at FREQUENCY:OTHER Resulting Agency Comment Specimen source: PD Fluid Efren Perez MD LAB BLOOD ORDERABLES Final Result Performing Organization Address City/[facility]/ZIP Co de Phone Number [employer] See order comments or contact performing lab Unknown, [place] * (ABNORMAL) HEMATOLOGY (12/21/2024) Only the most recent of10 resultswithin the time period is included. Hemoglobin 10.5(L) 14.0 - 18.0 g/dL [facility] Hemoglobin x 3 31.5(L) 42.0 - 54.0 % [facility] 12/21/2024 12/22/2024 10: 59 AM CDT Narrative [facility] - 12/22/2024 Unless otherwise specified, test(s) performed at: [facility], [address] [place], [place] [id number] CITIZEN PARTICIPATION SPECIALIST: Augustin Finney M.D. For any questions, please call customer service at FREQUENCY:OTHER Resulting Agency Comment Specimen source: Blood Efren Perez MD LAB BLOOD ORDERABLES Final Result [facility] See order comments or contact performing lab Unknown, [place] * (ABNORMAL) [facility] Chemistry (12/21/2024) Only the most recent of11 resultswithin the time period is included. BUN 24(H) 6 - 19 mg/dL [facility] Creatinine 2.60(H) 0.60 - 1.30 mg/dL [facility] Comment: Custom Exception BUN/Creatinine Ratio 9.2(L) 10.0 - 20.0 [facility] Sodium 138 136 - 145 mEq/L [facility] Potassium 4.7 3.5 - 5.1 mEq/L [facility] Chloride 104 96 - 108 mEq/L [facility] Bicarbonate (CO2) 24 22 - 29 mEq/L [facility] 12/21/2024 12/23/2024 9:1 4 AM CDT Narrative [facility] - 12/23/2024 Unless otherwise specified, test(s) performed at: [facility] [address] CITIZEN PARTICIPATION SPECIALIST: Augustin Finney M.D. For any questions, please call customer service at FREQUENCY:OTHER Resulting Agency Comment Specimen source: Serum Efren Perez MD LAB BLOOD ORDERABLES Final Result Performing Organization Address [facility] de Phone Number [facility] See order comments or contact performing lab Unknown, [place] * HD KINETICS (12/14/2024) Only the most recent of4 resultswithin the time period is included. % Urea Reduction 74 65 - 80 % [facility] 12/14/2024 12/16/2024 10: 50 AM CDT Narrative Resulting Agency Comment Specimen source: Plasma Efren Perez MD LAB BLOOD ORDERABLES Final Result Performing Organization Address [facility] de Phone Number [facility] See order comments or contact performing lab Unknown, [place] * POST CHEMISTRY (12/14/2024) Only the most recent of4 resultswithin the time period is included. Pathologist [facility] BUN Post Dialysis 10 6 - 19 mg/dL [facility] 12/14/2024 12/16/2024 10: 50 AM CDT Narrative [facility] - 12/16/2024 Unless otherwise specified, test(s) performed at: [employer] [facility], [address] [place] [address] CITIZEN PARTICIPATION SPECIALIST: Augustin Finney M.D. For any questions, please call customer service at FREQUENCY:OTHER Resulting Agency Comment Specimen source: Plasma Efren Perez MD LAB BLOOD ORDERABLES Final Result Performing Organization Address [facility] de Phone Number [facility] See order comments or contact performing lab Unknown, [place] * [facility] Lab Results (12/14/2024) Only the most recent of3 resultswithin the time period is included. eNPCR 0.57 [facility] eKt/V ([place]) 1.32 [facility] eKdrt/V 1.30 [facility] WSTDKT/V 2.4 [facility] eKt/V [facility]ch [facility] sp[facility]t/V (Daugirdas II) 1.52 [facility] spKt/V Gotch 1.[facility] PCR 50.86 [facility] nPCR_HD 0.59 [facility] 12/14/2024 12/14/2024 [facility] Ordering Provider LAB BLOOD ORDERABLES Final Result [facility] Center Contact Performing lab Unknown, [place] * IMMUNO CHEMISTRY (12/07/2024) Only the most recent of3 resultswithin the time period is included. Pathologist [facility] Hep B Surface Ag Negative Negative [employer] 12/07/2024 12/08/2024 12: 47 PM CDT Narrative [facility] - 12/08/2024 Unless otherwise specified, test(s) performed at: [facility] [place] [address] CITIZEN PARTICIPATION SPECIALIST: Augustin Finney M.D. For any questions, please call customer service at FREQUENCY:MONTHLY Resulting Agency Comment Specimen source: Serum Efren Perez MD LAB BLOOD ORDERABLES Final Result Performing Organization Address [facility] de Phone Number [employer] See order comments or contact performing lab Unknown, [place] * (ABNORMAL) SPECIAL CHEMISTRY (10/19/2024) Pathologist [facility] Hemoglobin A1C 7.0(H) 4.8 - 5.9 % [facility] 10/19/2024 10/21/2024 11: 24 AM CDT Narrative [facility] - 10/21/2024 Unless otherwise specified, test(s) performed at: [facility] [facility] [facility], [address] [place], [place] [id number] CITIZEN PARTICIPATION SPECIALIST: Augustin Finney M.D. For any questions, please call customer service at FREQUENCY:MONTHLY Resulting Agency Comment Specimen source: Blood Efren Perez MD LAB BLOOD BANK TEST O RDERABLES Final Result Performing Organization Address City/[facility]/ZIP Co de Phone Number [employer] See order comments or contact performing lab Unknown, [place] * TRACE ELEMENTS (10/19/2024) Pathologist [facility] Aluminum 6 0 - 10 mcg/L [employer] Comment: This test was developed and its performance characteristics determined by [facility]. It has not been cleared or approved by the FDA. The laboratory is regulated under CLIA as qualified to perform high complexity testing. This test is used for clinical purposes. It should not be regarded as investigational or for research. 10/19/2024 10/21/2024 10: 31 AM CDT Ritika СВЕТЛАНА - 10/21/2024 Unless otherwise specified, test(s) performed at: [facility] [facility], [address] [place] [address] CITIZEN PARTICIPATION SPECIALIST: Augustin Finney M.D. For any questions, please call customer service at FREQUENCY:MONTHLY Resulting Agency Comment Specimen source: Serum Efren Perez MD LAB BLOOD ORDERABLES Final Result [facility] [employer] See order comments or contact performing lab Unknown, [place] * Basic Metabolic Panel (BMP) (09/29/2024) [facility] Sodium 141 mEq/L Potassium 5.3 mEq/L Chloride 102 Carbon Dioxide 24 mmol/L Calcium 8.9 mg/dL BUN 37 mg/dL Creatinine 2..8 mg/dL Glucose 141 mg/dL eGFR Non-Afr Citizen Of [place] 23.6 Anion Gap 20.3 09/29/2024 Ella Powell - 09/29/2024 11:34 AM CDT [facility] [address] [place] [address] Dr. Annita Thompson, Rug Setter [place] us Aps External Provider LAB BLOOD ORDERABLES Final Result * BNP Prohormone (09/29/2024) [facility] B Type Natriuretic Peptide (BNP) 8,857 Blood specimen (specimen) Venous blood / Unknown 09/29/2024 Aps External Provider LAB BLOOD ORDERABLES Final Result from Last 3 Months Insurance [facility] ([id number]) Care Teams Sheetmetal Trades Worker Relationship Specialty Start Date End Date Corinne Nicholson FNP [address] [place] [id number] PCP - General Nutrition 09/23/24
--- OUTSIDE RECORDS SUMMARY | 2024-12-25 07:02 | XMS_ITS | Encounter Summary ---
Author Organization [facility] Address [address] [place] [address] Phone Care Team Providers Care Debt Management Counselor Name Role Phone LynCorinneFeliciano [facility] Primary Care Provider Encounter Details Date Type Department Care Team (Late st Contact Info) Description 12/21/2024 Orders Only [facility] [address] [place] [address] Efren Perez MD [address] [place] [address] Social History Tobacco Use Types [...] Procedure Name Priority Date/Time Associated Diagnosis Comments URINE CLEARANCE Routine 12/21/2024 PATIENT INFORMATION Routine 12/21/2024 PATIENT INFORMATION Routine 12/21/2024 HEMATOLOGY Routine 12/21/2024 CHEMISTRY Routine 12/21/2024 documented in this encounter Results * (ABNORMAL) [facility] (12/21/2024) Pathologist [facility] BUN 24(H) 6 - 19 mg/dL [facility] [...] 12/23/2024 Unless otherwise specified, test(s) performed at: [place] [address] RUBBER PRESS OPERATOR: Augustin Finney M.D. For any questions, please call customer service at FREQUENCY:OTHER Resulting Agency Comment Specimen source: Serum Efren Perez MD LAB BLOOD ORDERABLES Final Result Performing Organization Address [facility] de Phone Number [facility] See order comments or contact performing lab Unknown, [place] * PATIENT INFORMATION (12/21/2024) [facility] Patient BSA 2.09 sq. M. [facility] Comment: Normalized values are calculated using the patient's actual BSA and normalized to the average BSA of 1.73m2. 12/21/2024 12/23/2024 9:1 4 AM CDT Narrative [facility] - 12/23/2024 Unless otherwise specified, test(s) performed at: [facility], [address] [place] [id number] RUBBER PRESS OPERATOR: Augustin Finney M.D. For any questions, please call customer service at FREQUENCY:OTHER Resulting Agency Comment Specimen source: PD Fluid Efren Perez MD LAB BLOOD ORDERABLES Final Result Performing Organization Address [facility]/ZIP Co de Phone Number [facility] See order comments or contact performing lab Unknown, [place] * (ABNORMAL) URINE CLEARANCE (12/21/2024) [facility] Creatinine, Urine Timed 93.3 mg/dL [facility] Creatinine, 24H Ur 0.9 0.7 - 1.8 g/24 hr [facility] Creatinine Clear, Urine 24.9 mL/min [facility] Creat Clear, Urine Norm 20.6(L) 94.0 - 122.0 mL/min [facility] Comment: Custom Alert 12/21/2024 12/22/2024 10: 17 AM CDT Narrative [facility] - 12/23/2024 Unless otherwise specified, test(s) performed at: [place] [address] RUBBER PRESS OPERATOR: Augustin Finney M.D. For any questions, please call customer service at FREQUENCY:OTHER Resulting Agency Comment Specimen source: Urine Efren Perez MD LAB URINE ORDERABLES Edited Result - Final Performing Organization Address [facility] de Phone Number [facility] See order comments or contact performing lab Unknown, [place] * (ABNORMAL) HEMATOLOGY (12/21/2024) [facility] Hemoglobin 10.5(L) 14.0 - 18.0 g/dL [facility] Hemoglobin x 3 31.5(L) 42.0 - 54.0 % [facility] 12/21/2024 12/22/2024 10: 59 AM CDT Narrative [facility] - 12/22/2024 Unless otherwise specified, test(s) performed at: [facility], [address] [place], [place] [id number] RUBBER PRESS OPERATOR: Augustin Finney M.D. For any questions, please call customer service at FREQUENCY:OTHER Resulting Agency Comment Specimen source: Blood Efren Perez MD LAB BLOOD ORDERABLES Final Result Performing Organization Address [facility] Co de Phone Number [facility] See order comments or contact performing lab Unknown, [place] * PATIENT INFORMATION (12/21/2024) Patient Weight 95.6 [facility] Patient Height 173.0 [facility] Amputee Status NO [facility] Amputee Parts NONE [facility] Urine Volume 1,000 [facility] Collection Interval, Ur 24.0 [facility] 12/21/2024 12/21/2024 Narrative [facility] - 12/22/2024 Unless otherwise specified, test(s) performed at: [facility], [address] [place] [id number] RUBBER PRESS OPERATOR: Augustin Finney M.D. For any questions, please call customer service at FREQUENCY:OTHER Resulting Agency Comment Specimen source: PD Fluid us Efren Perez MD LAB BLOOD ORDERABLES Final Result [facility] See order comments or contact performing lab Unknown, [place] documented in this encounter Visit Diagnoses Not on filedocumented in this encounter Care Teams Debt Management Counselor Relationship Specialty Start Date End Date Corinne Nicholsno FNP [address] [place] [address] [phone] PCP - General Nutrition 09/23/24 documented as of this encounter
== END 2024-12-24 18:58 | disposition home or self-care (01) ==
PROVIDERS: Family Medicine; Emergency Provider Student in an Organized Health Care Education/Training Program; PCP Nurse Practitioner
DX: Z49.01 Encounter for fitting and adjustment of extracorporeal dialysis catheter (principal); E11.22 Type 2 diabetes mellitus with diabetic chronic kidney disease; I12.0 Hypertensive chronic kidney disease with stage 5 chronic kidney disease or end stage renal disease; N18.6 End stage renal disease; Z79.82 Long term (current) use of aspirin; Z79.02 Long term (current) use of antithrombotics/antiplatelets; Z79.4 Long term (current) use of insulin; I25.10 Atherosclerotic heart disease of native coronary artery without angina pectoris; Z87.891 Personal history of nicotine dependence
CPT/HCPCS: 36415; 80053; 85025; 99283

== ENCOUNTER → 2025-01-07 15:02 | Outpatient (BNVA) | payer BC, MEDICAID, SELFPAY | PROVIDERS: PCP Nurse Practitioner; Visit Provider Nurse Practitioner | DX: E11.59 Type 2 diabetes mellitus with other circulatory complications (principal); Z79.4 Long term (current) use of insulin | CPT/HCPCS: 83036 ==

== ENCOUNTER → 2025-03-11 14:57 | Outpatient (BNVA) | payer BC, MEDICAID, SELFPAY | PROVIDERS: PCP Nurse Practitioner; Visit Provider Nurse Practitioner | DX: N28.9 Disorder of kidney and ureter, unspecified (principal); D69.6 Thrombocytopenia, unspecified | CPT/HCPCS: 80069; 82310; 82570; 83970; 84156; 85025 ==

== ENCOUNTER → 2025-03-15 14:33 | Outpatient (BNVA) | payer BC, MEDICAID, SELFPAY | PROVIDERS: PCP Nurse Practitioner; Referring Provider Nurse Practitioner; Visit Provider Nurse Practitioner | DX: I10 Essential (primary) hypertension (principal); I25.10 Atherosclerotic heart disease of native coronary artery without angina pectoris; N18.9 Chronic kidney disease, unspecified; D69.6 Thrombocytopenia, unspecified | CPT/HCPCS: 85025; 85610 ==